=== PATIENT | female | born 1955 | race Caucasian/White ===

== ENCOUNTER → 2019-12-08 13:42 | Outpatient (BNVA) | payer MEDICARE, SELFPAY | PROVIDERS: Family Provider Family Medicine; PCP Family Medicine; Visit Provider Psychiatry & Neurology Psychiatry | DX: F33.42 Major depressive disorder, recurrent, in full remission (principal); F41.0 Panic disorder [episodic paroxysmal anxiety]; F17.210 Nicotine dependence, cigarettes, uncomplicated | CPT/HCPCS: 99214; 99215 ==

== ENCOUNTER 2020-01-01 07:18 | Inpatient (IN) | payer MEDICARE, SELFPAY ==
[2020-01-01] VITALS (44 sets, daily range): BP systolic 91–174; BP diastolic 55–87; PULSE 68–98; RESP 11–25; TEMP 36.4–36.8; O2SAT 91–100; BMI 29.2
--- NOTE | 2020-01-01 07:19 | W.ED.ABDPA2 ---
HPI - Abdominal Pain General: Chief Complaint: Abdominal Pain Stated Complaint: ABD PAIN Time Seen by Provider: 01/01/20 07:19 Source: patient Mode of arrival: ambulatory Limitations: no limitations History of Present Illness: HPI narrative: Patient is a 64-year-old female who presents to ED today with complaints of fairly sudden onset of right-sided abdominal pain that began at rest earlier this morning; patient states she had just use the restroom and reports walking back from the bathroom and immediately started having pain; she states pain seems to be worse with palpation and movement; she denies nausea, vomiting, changes in bowel movements, changes in urinary habits; no fever/chills; she reports a history of cholelithiasis; previous abdominal surgeries including hysterectomy with prophylactic appendectomy; denies previous similar episodes MD elicited complaint: abdominal pain Pertinent past history: none Onset (ago): hour(s) Exacerbating factors: movement Relieving factors: rest Associated Symptoms: Denies change in bowel habits, change in stool character, chills, coffee ground emesis, constipation, diarrhea, dysuria, excessive flatus, fever(s), heartburn, hematochezia, hematemesis, fecal incontinence, melena, nausea, syncope and vomiting Review of Systems Const: Denies: fever, chills or body aches Card: Denies: chest pain, palpitations, irregular heart rhythm, edema, lightheadedness, syncope, pre-syncope, shortness of breath on exertion or shortness of breath when lying down Resp: Denies: shortness of breath or productive cough GI: Reports: abdominal pain; Denies: nausea, vomiting, vomiting blood, coffee grounds in vomit, difficulty swallowing, heartburn/indigestion, feeling full early, diarrhea, constipation, excessive passing of gas, fecal incontinence, change in bowel habits, painful bowel movements, change in stool character, blood in stool, black tarry stool or white/light colored stool : Denies: flank pain, difficulty urinating, painful urination, urinary frequency, urinary urgency or urinary hesitancy Musc: Denies: neck pain or back pain Skin/Breast: Denies: rash Neuro: Denies: headache PFSH ED PFSH: Statuses (acute, chronic, etc) shown below reflect problem list status as previously entered and may not be historically accurate Medical History Cholelithiasis (Acute) Major depressive disorder, recurrent, in full remission (Acute) Panic disorder (Acute) Social History Smoking and tobacco status: current every day smoker cigarettes Packs smoked per day: 1.5 Quit status (tobacco): has tried quititng Number of times tried to quit tobacco: 1 Second hand smoke exposure: No Smoking risk assessment/counseling performed?: No Reason smoking risk assessment not done: other Physical Exam Const: COMMON NORMALS: no apparent distress, average body habitus, oriented x3, no limitations, alert and well nourished GENERAL APPEARANCE: cooperative Eye: COMMON NORMALS: no scleral icterus Neck/C-Spine: COMMON NORMALS: no lymphadenopathy Resp: COMMON NORMALS: normal respiratory effort and clear to auscultation bilaterally AUSCULTATION: clear to auscultation bilaterally Cardio: COMMON NORMALS: regular rate and regular rhythm RATE: regular rate RHYTHM: regular rhythm GI: COMMON NORMALS: soft to palpation, no hepatosplenomegaly and no masses AUSCULTATION: Yes normoactive bowel sounds PALPATION: Yes soft, Yes tender (R mid abdomen/RLQ; states it radiates down into groin) Details: RLQ and RUQ and Yes no hepatosplenomegaly : COMMON NORMALS: Yes no CVA tenderness BLADDER/KIDNEY EXAM: Yes no CVA tenderness Back/Pelvis: COMMON NORMALS: no CVA tenderness and thoracic and lumbar spine normal to inspection Neuro: COMMON NORMALS: oriented x3 SENSORIUM/ORIENTATION: Yes alert Skin: COMMON NORMALS: no rashes or lesions noted GENERAL SKIN EXAM: no rashes or lesions noted Course ED course: delay in care as UA was not being ran by lab-when I contacted them they stated they did not have a specimen on pt; RN Jaylin went to lab and realized she had placed wrong patient label urine Consultations: Consultation #1: Dr. Smith-recommends MRCP and if negative he will admit for cholecystectomy Time: 10:40 Consultation #2: Dr. Smith-went over pts MRCP results and he request we prep patient for OR Time: 14:30 Vital Signs: Vital signs: Vital Signs Temperature 97.5 F L 01/01/20 07:21 Pulse Rate 87 01/01/20 11:38 Respiratory Rate 18 01/01/20 11:38 Blood Pressure 91/72 01/01/20 11:38 Pulse Oximetry 91 01/01/20 11:38 MDM - Abdominal Pain Lab Data: Labs: Lab Results 01/01/20 01/01/20 01/01/20 Range/Units 07:44 07:45 07:45 WBC 15.6 H (4.0-10.0) 10^3/ uL RBC 4.11 (4.1-5.3) 10^6/u L Hgb 12.6 (11.5-15.3) g/dL Hct 38.8 (37.0-47.0) % MCV 94.4 (81-99) fL MCH 30.7 (28.0-34.0) pg MCHC 32.5 (30.0-36.0) g/dL RDW 12.1 (12.1-15.1) % Plt Count 321 (130-400) 10^3/c mm MPV 9.5 (7.4-10.4) fL Neut % (Auto) 74.3 % Lymph % (Auto) 17.1 % [place] % (Auto) 5.8 % Eos % (Auto) 2.1 % Baso % (Auto) 0.4 % Neut # (Auto) 11.6 H (1.8-7.7) 10^3/u L Lymph # (Auto) 2.7 (0.8-4.8) 10^3/u L [place] # (Auto) 0.9 (0.2-0.9) 10^3/u L Eos # (Auto) 0.3 (0.0-0.8) 10^3/u L Baso # (Auto) 0.1 (0.0-0.1) 10^3/u L Nucleated RBC % (a uto) 0 % Nucleated RBCs # 0.0 /100WBC Sodium 142 (136-145) mmol/L Potassium 3.5 (3.5-5.1) mmol/L Chloride 103 (98-107) mmol/L Carbon Dioxide 28 (22-29) mmol/L Anion Gap 14.5 (5-19) BUN 20 (8-23) mg/dL Creatinine 1.1 H (0.5-0.9) mg/dL GFR Calculation 49.8 L (90-130) mL/min Glucose 134 H (74-106) mg/dL Lactate (0.5-2.2) mmol/L Calcium 9.9 (8.5-10.5) mg/dL Total Bilirubin 0.2 (0.15-1.2) mg/dL AST 18 (0-32) U/L ALT 18 (0-33) U/L Alkaline Phosphata se 102 (35-105) IU/L Total Protein 7.5 (6.6-8.7) g/dL Albumin 4.3 (3.5-5.2) g/dL Globulin 3.2 (1.3-4.6) g/dL Lipase 19 (13-60) U/L Urine Color Yellow (Yellow) Urine Appearance Clear (CLEAR) Urine pH 5.0 (5-7) Ur Specific Gravit y 1.020 (1.005-1.030) Urine Protein Trace (Negative) Urine Glucose (UA) Norm (Normal) Urine Ketones Negative (Negative) Urine Occult Blood Neg (Negative) Urine Nitrate Negative (Negative) Urine Bilirubin 1+ H (NEGATIVE) Urine Urobilinogen 1 H (Negative) mg/dL Ur Leukocyte Tawana ase Negative (Negative) Urine RBC None (0-2) /hpf Urine WBC 0-4 H (0-5) /hpf Ur Squamous Epith Cells 5-10 H (0-5) Urine Bacteria 1+ H (NONE) Hyaline Casts 5-10 H Urine Mucus 2+ 01/01/20 Range/Units 10:52 WBC (4.0-10.0) 10^3/ uL RBC (4.1-5.3) 10^6/u L Hgb (11.5-15.3) g/dL Hct (37.0-47.0) % MCV (81-99) fL MCH (28.0-34.0) pg MCHC (30.0-36.0) g/dL RDW (12.1-15.1) % Plt Count (130-400) 10^3/c mm MPV (7.4-10.4) fL Neut % (Auto) % Lymph % (Auto) % [place] % (Auto) % Eos % (Auto) % Baso % (Auto) % Neut # (Auto) (1.8-7.7) 10^3/u L Lymph # (Auto) (0.8-4.8) 10^3/u L [place] # (Auto) (0.2-0.9) 10^3/u L Eos # (Auto) (0.0-0.8) 10^3/u L Baso # (Auto) (0.0-0.1) 10^3/u L Nucleated RBC % (a uto) % Nucleated RBCs # /100WBC Sodium (136-145) mmol/L Potassium (3.5-5.1) mmol/L Chloride (98-107) mmol/L Carbon Dioxide (22-29) mmol/L Anion Gap (5-19) BUN (8-23) mg/dL Creatinine (0.5-0.9) mg/dL GFR Calculation (90-130) mL/min Glucose (74-106) mg/dL Lactate 1.3 (0.5-2.2) mmol/L Calcium (8.5-10.5) mg/dL Total Bilirubin (0.15-1.2) mg/dL AST (0-32) U/L ALT (0-33) U/L Alkaline Phosphata se (35-105) IU/L Total Protein (6.6-8.7) g/dL Albumin (3.5-5.2) g/dL Globulin (1.3-4.6) g/dL Lipase (13-60) U/L Urine Color (Yellow) Urine Appearance (CLEAR) Urine pH (5-7) Ur Specific Gravit y (1.005-1.030) Urine Protein (Negative) Urine Glucose (UA) (Normal) Urine Ketones (Negative) Urine Occult Blood (Negative) Urine Nitrate (Negative) Urine Bilirubin (NEGATIVE) Urine Urobilinogen (Negative) mg/dL Ur Leukocyte Tawana ase (Negative) Urine RBC (0-2) /hpf Urine WBC (0-5) /hpf Ur Squamous Epith Cells (0-5) Urine Bacteria (NONE) Hyaline Casts Urine Mucus Imaging Data ^: CT Abd/Pel: Radiologist's impression: [address] [address] [address] Scan Report Signed Patient: Rebecca Coombs Unit #: [id number] : 1955 Age/Sex: 64 / F ADM Date: 01/01/20 Loc: ER Room/Bed: Attending Dr: Ordering Provider/Ordering MD: Loren Faith Date of Service: 01/01/20 Procedure(s): CT abdomen pelvis w con* [id number] Accession Number(s): [id number] Report Number: [id number] WS: [id number] CT scan of the abdomen and pelvis with IV contrast. Additional two-dimensional coronal and sagittal reconstruction was performed. 01/01/2020 Clinical Data: R sided abdominal pain Comparison: None. DLP: 2341.[address] scans at [facility] use at least one of these dose optimization techniques: automated exposure control; mA and/or kV adjustment per patient size (includes targeted exams where dose is matched to clinical indication); or iterative reconstruction. Findings: The lower lungs show no nodules, masses or effusions. The gallbladder shows a thickened wall with gallstones. The common bile duct is dilated to 1.6 cm although a definite intraductal stone is not seen. There is minimal air in the left liver biliary radicles. No liver abscess is seen. The spleen, adrenal glands and pancreas are normal. The kidneys show equal bilateral contrast excretion with a small left renal cortical cyst.. The abdominal aorta shows atherosclerotic dilatation of 2.5 cm with calcification in the wall. No abscess, adenopathy, ascites, mass, obstruction or free air is seen.. No appendicitis or diverticulitis is seen. The stomach and small bowel are nondilated. There is radiopaque material in the distal small bowel which may represent ingested material. There is a large amount of fecal material in the colon and extensive sigmoid diverticulosis is present. The bladder is unremarkable. The uterus is absent. No inguinal hernia is seen. 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 CT/CT abdomen pelvis w con* [id number] Impression: 1. Acute cholelithiasis and cholecystitis with dilated common bile duct and air in the biliary radicles of the left lobe of the liver. 2. Atherosclerotic dilatation of the midabdominal aorta Dictated By: Yary Alas MD Signed By: Yary Alas MD Signed Date/Time: 01/01/20 1016 DD/ 1001 US: Radiologist's impression: [address] [address] Ultrasound Report Signed Patient: Rebecca Coombs Unit #: [id number] : 1955 Age/Sex: 64 / F ADM Date: 01/01/20 Loc: ER Room/Bed: Attending Dr: Ordering Provider/Ordering MD: Loren Faith Date of Service: 01/01/20 Procedure(s): US gall bladder [id number] Accession Number(s): [id number] Report Number: [id number] WS: [id number] Gallbladder ultrasound, 01/01/2020 Clinical Data: R sided abdominal pain Comparison: CT abdomen and pelvis, 01/01/2020 Findings: The gallbladder shows several stones. The wall measures 3.9 mm with no pericholecystic fluid. The common bile duct is 11.9 mm and there are no intrahepatic ductal abnormalities. Liver shows no cysts, masses or dilated intrahepatic ducts. The liver measures 19.81 cm The pancreas is obscured by overlying bowel gas but no cyst, pseudocyst, or evidence of pancreatitis is noted. Right kidney measures 10.1 cm and no cyst, masses or hydronephrosis can be seen. The aorta is 2.64 cm and the inferior vena cava measured 3.17 cm. US/US gall bladder [id number] Impression: 1. Cholelithiasis with probable acute cholecystitis. 2. Dilated common bile duct is 1.19 cm but no intraductal stone is seen. 3. Atherosclerotic dilatation of the abdominal aorta of 2.64 cm. Dictated By: Yary Alas MD Signed By: Yary Alas MD Signed Date/Time: 01/01/20 1035 DD/ 1030 CXR: Radiologist's impression: [address] [address] XRay Report Signed Patient: Rebecca Coombs Unit #: [id number] : 1955 Age/Sex: 64 / F ADM Date: 01/01/20 Loc: ER Room/Bed: Attending Dr: Ordering Provider/Ordering MD: Loren Faith Date of Service: 01/01/20 Procedure(s): XR chest 1V portable [id number] Accession Number(s): [id number] Report Number: [id number] WS: [id number] Portable AP upright chest, 01/01/2020 Clinical Data: cough/congestion Comparison: PA and lateral chest, 08/31/2018. Findings: No nodules, masses or effusions are seen. The heart is normal. The pulmonary vascularity is not increased. No pneumonia or pneumothorax is seen. The aortic arch and descending aorta are minimally tortuous. Patchy lower lobe atelectasis is present. Midline sternotomy sutures are seen. There is a total right shoulder prosthesis in good position. XR/XR chest 1V portable [id number] Impression: 1. Minimal patchy bilateral lower lobe atelectasis. 2. Atherosclerosis. Dictated By: Yary Alas MD Signed By: Yary Alas MD Signed Date/Time: 01/01/20 1109 DD/ 1107 MRCP: Radiologist's impression: [place] [address] Magnetic Resonance Report Signed Patient: Rebecca Coombs Unit #: [id number] : 1955 Age/Sex: 64 / F ADM Date: 01/01/20 Loc: ER Room/Bed: Attending Dr: Ordering Provider/Ordering MD: Loren Faith Date of Service: 01/01/20 Procedure(s): MR MRCP [id number] Accession Number(s): [id number] Report Number: [id number] WS: [id number] MRCP, 01/01/2020 Clinical Data: cholecystitis/stones; dilated CBD Comparison: Gallbladder ultrasound, 01/01/2020, CT abdomen and pelvis, 01/01/2020. Findings: The pancreas is normal with no evidence of any pancreatitis, pseudocyst, abscess, mass or ductal dilation. The distal pancreatic duct empties normally into the descending duodenum with no evidence of any stricture or intraluminal defect. The common bile duct is dilated down to the sphincter of Eric but no intraluminal filling defect is seen. There is a sharp narrowing of the distal common bile duct just before it enters the second part of the duodenum. The gallbladder is densely packed with stones. The proximal intrahepatic radicles are modestly dilated. The liver, spleen, kidneys, stomach, abdominal aorta and inferior vena cava are unremarkable. MR/MR MRCP [id number] Impression: 1. Cholelithiasis. 2. Dilated common bile duct with no definite intraluminal filling defect. 3. The distal common bile duct shows narrowing as it proceeds into the second part of the duodenum and an ERCP may be helpful. Dictated By: Yary Alas MD Signed By: Yary Alas MD Signed Date/Time: 01/01/20 1403 DD/ 1352 Discharge Plan Discharge Patient Disposition: Admitted As Inpatient Clinical Impression: Cholelithiasis and cholecystitis without obstruction Qualifiers: Cholelithiasis location: gallbladder Cholecystitis acuity: acute Qualified Code(s): K80.00 - Calculus of gallbladder with acute cholecystitis without obstruction Condition: Stable Coding Level of Care Code ED Jewelry Sales Associate for Lillian Yang Exam Problem Focused
[2020-01-01 07:50] LABS: Basophils # 0.1 10^3/uL (0.0-0.1); Basophils % 0.4 %; Eosinophils # 0.3 10^3/uL (0.0-0.8); Eosinophils % 2.1 %; Hematocrit 38.8 % (37.0-47.0); Hemoglobin 12.6 g/dL (11.5-15.3); Lymphocytes # 2.7 10^3/uL (0.8-4.8); Lymphocytes % 17.1 %; Mean Corpuscular HGB Conc 32.5 g/dL (30.0-36.0); Mean Corpuscular Hemoglobin 30.7 pg (28.0-34.0); Mean Corpuscular Volume 94.4 fL (81-99); Mean Platelet Volume 9.5 fL (7.4-10.4); Monocytes # 0.9 10^3/uL (0.2-0.9); Monocytes % 5.8 %; Neutrophils # 11.6 10^3/uL (1.8-7.7); Neutrophils % 74.3 %; Nucleated Red Blood Cells % 0 %; Platelet Count 321 10^3/cmm (130-400); Red Blood Count 4.11 10^6/uL (4.1-5.3); Red Cell Distribution Width 12.1 % (12.1-15.1); White Blood Count 15.6 10^3/uL (4.0-10.0)
[2020-01-01] MEDS: morphine 4 mg/mL SDV 1 mL IVP (08:00)
[2020-01-01 08:05] LABS: Alanine Aminotransferase 18 U/L (0-33); Albumin Level 4.3 g/dL (3.5-5.2); Alkaline Phosphatase 102 IU/L (35-105); Anion Gap 14.5 (5-19); Aspartate Amino Transferase 18 U/L (0-32); Blood Urea Nitrogen 20 mg/dL (8-23); Calcium 9.9 mg/dL (8.5-10.5); Carbon Dioxide 28 mmol/L (22-29); Chloride 103 mmol/L (98-107); Creatinine Clr Calc Pharmacy 57.0601; Globulin 3.2 g/dL (1.3-4.6); Glomerular Filtration Rate 49.8 mL/min (90-130); Glucose 134 mg/dL (74-106); Lipase 19 U/L (13-60); Potassium 3.5 mmol/L (3.5-5.1); Sodium 142 mmol/L (136-145); Total Bilirubin 0.2 mg/dL (0.15-1.2); Total Protein 7.5 g/dL (6.6-8.7)
[2020-01-01] MEDS: ondansetron 2 mg/ML SDV 2 mL 4 MG IVP ×2 (08:05→20:09)
[2020-01-01] MEDS: sodium chloride 0.9% 1,000 ML 999 ML IV (08:10)
[2020-01-01 08:59] LABS: Blood Urine Neg (Negative); Glucose Urine UA Norm (Normal); Ketones Urine Negative (Negative); Protein Urine Trace (Negative); Urine Appearance Clear (CLEAR); Urine Color Yellow (Yellow)
[2020-01-01 09:00] LABS: Add Urine Microscopic? YES; Bilirubin Urine 1+ (NEGATIVE); Leukocyte Esterase Urine Negative (Negative); Nitrate Urine Negative (Negative); Urobilinogen Urine 1 mg/dL (Negative)
--- NOTE | 2020-01-01 09:03 | CT_ITS ---
WS: [id number] CT scan of the abdomen and pelvis with IV contrast. Additional two-dimensional coronal and sagittal r econstruction was performed. 01/01/2020 Clinical Data: R sided abdominal pain Comparison: None. DLP: 2341.[address] scans at [facility] use at least one of these dose optimization techniques: automat ed exposure control; mA and/or kV adjustment per patient size (includes targeted exams where dose is matched to clinical indication); or iterative reconstruction. Findings: The lower lungs show no nodules, masses or effusions. The gallbladder shows a thickened wall with gal lstones. The common bile duct is dilated to 1.6 cm although a definite intraductal stone is not seen. There is minimal air in the left liver biliary radicles. No liver abscess is seen. The spleen, adrenal glands and pancreas are normal. The kidneys show equal bilateral contrast excretion with a small left renal cortical cyst.. The abdominal aorta shows atherosclerotic dilatation of 2.5 cm with calcification in the wall. No abs cess, adenopathy, ascites, mass, obstruction or free air is seen.. No appendicitis or diverticulitis is seen. The stomach and small bowel are nondilated. There is radio paque material in the distal small bowel which may represent ingested material. There is a large abilio unt of fecal material in the colon and extensive sigmoid diverticulosis is present. The bladder is un remarkable. The uterus is absent. No inguinal hernia is seen. 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 CT/CT abdomen pelvis w con* [id number] Impression: 1. Acute cholelithiasis and cholecystitis with dilated common bile duct and air in the biliary radicles of the left lobe of the liver. 2. Atherosclerotic dilatation of the midabdominal aorta
--- NOTE | 2020-01-01 09:03 | US_ITS ---
WS: [id number] Gallbladder ultrasound, 01/01/2020 Clinical Data: R sided abdominal pain Comparison: CT abdomen and pelvis, 01/01/2020 Findings: The gallbladder shows several stones. The wall measures 3.9 mm with no pericholecystic fluid. The common bile duct is 11.9 mm and there are no intrahepatic ductal abnormalities. Liver shows no cysts, masses or dilated intrahepatic ducts. The liver measures 19.81 cm The pancreas is obscured by overlying bowel gas but no cyst, pseudocyst, or evidence of pancreatitis is noted. Right kidney measures 10.1 cm and no cyst, masses or hydronephrosis can be seen. The aorta is 2.64 cm and the inferior vena cava measured 3.17 cm. US/US gall bladder [id number] Impression: 1. Cholelithiasis with probable acute cholecystitis. 2. Dilated common bile duct is 1.19 cm but no intraductal stone is seen. 3. Atherosclerotic dilatation of the abdominal aorta of 2.64 cm.
[2020-01-01 09:12] LABS: Add Urine Culture? No; Bacteria Urine 1+; Mucus Urine 2+; WBC Urine 0-4 /hpf (0-5)
[2020-01-01] MEDS: iodixanol 320 mg/mL 100mL Btl 95 ML IV (09:43)
--- NOTE | 2020-01-01 10:10 | PC.NURSE ---
US IN ROOM FOR US OF GALLBLADDER
[2020-01-01] MEDS: fentaNYL 50 mcg/mL INJ 2mL IVP ×2 (10:40→12:36)
--- NOTE | 2020-01-01 10:41 | ECG_ITS ---
Measurements Intervals Gatzke Rate: 79 P: 64 KS: 208 QRS: 20 QRSD: 110 T: 58 QT: 379 QTc: 436 SINUS RHYTHM INFERIOR MYOCARDIAL INFARCTION [40+ ms Q WAVE AND/OR ST/T ABNORMALITY IN II/aVF], PROBABLY OLD WITH POSTERIOR EXTENSION [PROMIN Compared to ECG 08/31/2018 09:37:00 Ectopic atrial rhythm no longer present First degree AV block no longer present Myocardial infarct finding still present Electronically Signed On 01-01-2020 15:59:46 INFORMATION MANAGEMENT SPECIALIST by Murtaza Daniel M.D. [email or web address]
--- NOTE | 2020-01-01 10:41 | XR_ITS ---
WS: [id number] Portable AP upright chest, 01/01/2020 Clinical Data: cough/congestion Comparison: PA and lateral chest, 08/31/2018. Findings: No nodules, masses or effusions are seen. The heart is normal. The pulmonary vascularity is not increased. No pneumonia or pneumothorax is seen. The aortic arch and descending aorta are minima lly tortuous. Patchy lower lobe atelectasis is present. Midline sternotomy sutures are seen. There is a total right shoulder prosthesis in good position. XR/XR chest 1V portable [id number] Impression: 1. Minimal patchy bilateral lower lobe atelectasis. 2. Atherosclerosis.
[2020-01-01 11:20] LABS: Lactate (Lactic Acid level) 1.3 mmol/L (0.5-2.2)
--- NOTE | 2020-01-01 12:00 | MR_ITS ---
WS: [id number] MRCP, 01/01/2020 Clinical Data: cholecystitis/stones; dilated CBD Comparison: Gallbladder ultrasound, 01/01/2020, CT abdomen and pelvis, 01/01/2020. Findings: The pancreas is normal with no evidence of any pancreatitis, pseudocyst, abscess, mass or ductal dila tion. The distal pancreatic duct empties normally into the descending duodenum with no evidence of any stri cture or intraluminal defect. The common bile duct is dilated down to the sphincter of Eric but no intraluminal filling defect is s een. There is a sharp narrowing of the distal common bile duct just before it enters the second part of the duodenum. The gallbladder is densely packed with stones. The proximal intrahepatic radicles ar e modestly dilated. The liver, spleen, kidneys, stomach, abdominal aorta and inferior vena cava are unremarkable. MR/MR MRCP 03405 Impression: 1. Cholelithiasis. 2. Dilated common bile duct with no definite intraluminal filling defect. 3. The distal common bile duct shows narrowing as it proceeds into the second p art of the duodenum and an ERCP may be helpful.
--- NOTE | 2020-01-01 12:00 | PC.NURSE ---
LIST OF PARAMETERS FOR MRI GONE OVER WITH PATIENT
--- NOTE | 2020-01-01 12:19 | PC.NURSE ---
PATIENT TAKEN BY EMS OVER TO [facility] FOR MRI
--- NOTE | 2020-01-01 13:38 | PC.NURSE ---
patient arrived back form [facility] by ems. no needs voiced
[2020-01-01] MEDS: piperacillin-tazobactam 3.375 GM in sodium chloride 0.9% (plus) 50 ML IV ×2 (14:32→23:43)
--- NOTE | 2020-01-01 15:45 | P.ANES_ITS ---
Pre-Anesthetic Assessment Pre-Anesthetic Assessment: Height/Weight: Height 1.7 m Weight 84.822 kg Temp Pulse Resp BP Pulse Ox 97.5 F L 87 20 H 118/76 98 01/01/20 07:21 01/01/20 11:38 01/01/20 15:38 01/01/20 15:38 01/01/20 15:38 Preop Diagnosis: cholelithiasis Proposed Procedure: Operation Date: 01/01/20 15:30 Proposed Procedures p Laparoscopic Cholecystectomy(Not Applicable) - Brennan Smith MD Familial anesthetic complications: None Was Beta Ama taken within 24 hours: Yes Last intake: Intake Last Liquid Date 01/01/20 Last Liquid Time 06:00 Last Solid Date 12/31/19 Last Solid Time 18:00 Social: Social History: Tobacco (1 ppd) and No alcohol Airway: Cervical ROM: WNL MP: 2 Dentition: False Pulmonary: Pulmonary: COPD Comments: no o2, no steroids, no hospital admission CV/HEM: CV/HEM: Angina (Stable) (due to panic d/o per patients- treated with alprazolam) and HTN : : None reported Hepatic: Hepatic: None reported GI: GI: None reported Metabolic: Metabolic: Hyperlipidemia Musc/skel: Musc/skel: None reported Comments: rotator cuffs surgery Neuropsych: Neuropsych: None reported Anesthetic Plan: ASA status: III Anesthesia: Eval. for regional block Risk of > 500 ml blood loss (7ml/kg in children): No PFSH Anesthesia PFSH: Medical History (Updated 01/01/20 @ 15:42 by Brennan Smith MD) Cholelithiasis (Acute) Hypercholesterolemia (Acute) Major depressive disorder, recurrent, in full remission (Acute) Panic disorder (Acute) Surgical History (Updated 01/01/20 @ 15:42 by Brennan Smith MD) H/O cardiac catheterization (Acute) H/O hysterectomy with oophorectomy (Acute) H/O rotator cuff surgery (Acute) History of right shoulder replacement (Acute) Hx of appendectomy (Acute) S/p bilateral carpal tunnel release (Acute) S/P CABG x 4 (Acute) Status post colonoscopy (Acute) Social History Smoking and tobacco status: current every day smoker cigarettes Packs smoked per day: 1.5 Quit status (tobacco): has tried quititng Number of times tried to quit to bacco: 1 Second hand smoke exposure: No Smoking risk assessment/counseling performed?: No Reason smoking risk assess ment not done: other Data Anesthesia CBC & Chem 7: 01/01/20 07:45 01/01/20 07:45 Other Labs: Laboratory Results - last 48 hr 01/01/20 01/01/20 01/01/20 07:44 07:45 07:45 WBC 15.6 H RBC 4.11 Hgb 12.6 Hct 38.8 MCV 94.4 MCH 30.7 MCHC 32.5 RDW 12.1 Plt Count 321 MPV 9.5 Neut % (Auto) 74.3 Lymph % (Auto) 17.1 [place] % (Auto) 5.8 Eos % (Auto) 2.1 Baso % (Auto) 0.4 Neut # (Auto) 11.6 H Lymph # (Auto) 2.7 [place] # (Auto) 0.9 Eos # (Auto) 0.3 Baso # (Auto) 0.1 Nucleated RBC % (auto) 0 Nucleated RBCs # 0.0 Sodium 142 Potassium 3.5 Chloride 103 Carbon Dioxide 28 Anion Gap 14.5 BUN 20 Creatinine 1.1 H GFR Calculation 49.8 L Glucose 134 H Lactate Calcium 9.9 Total Bilirubin 0.2 AST 18 ALT 18 Alkaline Phosphatase 102 Total Protein 7.5 Albumin 4.3 Globulin 3.2 Lipase 19 Urine Color Yellow Urine Appearance Clear Urine pH 5.0 Ur Specific [place] 1.020 Urine Protein Trace Urine Glucose (UA) Norm Urine Ketones Negative Urine Occult Blood Neg Urine Nitrate Negative Urine Bilirubin 1+ H Urine Urobilinogen 1 H Ur Leukocyte Esterase Negative Urine RBC None Urine WBC 0-4 H Ur Squamous Epith Cells 5-10 H Urine Bacteria 1+ H Hyaline Casts 5-10 H Urine Mucus 2+ 01/01/20 10:52 WBC RBC Hgb Hct MCV MCH MCHC RDW Plt Count MPV Neut % (Auto) Lymph % (Auto) [place] % (Auto) Eos % (Auto) Baso % (Auto) Neut # (Auto) Lymph # (Auto) [place] # (Auto) Eos # (Auto) Baso # (Auto) Nucleated RBC % (auto) Nucleated RBCs # Sodium Potassium Chloride Carbon Dioxide Anion Gap BUN Creatinine GFR Calculation Glucose Lactate 1.3 Calcium Total Bilirubin AST ALT Alkaline Phosphatase Total Protein Albumin Globulin Lipase Urine Color Urine Appearance Urine pH Ur Specific [place] Urine Protein Urine Glucose (UA) Urine Ketones Urine Occult Blood Urine Nitrate Urine Bilirubin Urine Urobilinogen Ur Leukocyte Esterase Urine RBC Urine WBC Ur Squamous Epith Cells Urine Bacteria Hyaline Casts Urine Mucus Micro: Microbiology 01/01/20 10:57 Blood Culture - Preliminary Blood SPECIMEN COLLECTED 01/01/20 10:52 Blood Culture - Preliminary Blood SPECIMEN COLLECTED Cardiac Studies: No Data to Display
--- NOTE | 2020-01-01 16:13 | PC.NURSE ---
pixus showed I had an undocumented waste for fentanyl but all 100 mcgs completed
--- NOTE | 2020-01-01 16:14 | PM.HP ---
Providers/Chief Complaint Primary Care Provider: Venancio Mota MD Chief Complaint: CHOLESTECTOMY History of Present Illness Rebecca Coombs is a 64 year old female who presented to the ER with complaints of right upper quadrant pain which started 4 AM this morning. Patient states that the pain was severe and was associated nausea but denies any vomiting. There was no aggravating or relieving factors. Patient had pizza for dinner last night. Denies any history of significant acid reflux. She has never had a similar episode in the past. Denies any fevers or chills. Review of Systems Const: Denies: fever, chills, change in weight or fatigue Eyes: Denies: change in vision ENMT: Denies: painful swallowing Card: Denies: chest pain Resp: Denies: shortness of breath : Denies: painful urination Skin/Breast: Denies: rash Neuro: Denies: seizure-like activity Jovany/Lymph: Denies: easy bruising Medications/Allergies Home Medications Medication Instructions Recorded Confirmed Last Taken Type fluticasone propion-salmeterol 1 puff INHALATION BID 01/01/20 01/01/20 12/30/19 History [Wixela Inhub] potassium chloride 20 meq PO DAILY 01/01/20 01/01/20 12/30/19 History Allergies Allergy/AdvReac Type Severity Reaction Status Date / Time codeine Allergy Unknown Unknown Unverified 01/01/20 16:08 epinephrine Allergy Unknown Unknown Unverified 01/01/20 16:08 gabapentin [From Neurontin] Allergy Unknown Unknown Unverified 01/01/20 16:08 methadone Allergy Unknown Unknown Unverified 01/01/20 16:08 oxycodone [From OxyContin] Allergy Unknown Unknown Unverified 01/01/20 16:08 [id number] Reductase Allergy Unknown Unknown Unverified 01/01/20 16:08 Inhibitor tramadol Allergy Unknown Unknown Unverified 01/01/20 16:08 PFSH Acute PFSH: Statuses (acute, chronic, etc) shown below reflect problem list status as previously entered and may not be historically accurate Medical History Cholelithiasis (Acute) Hypercholesterolemia (Acute) Major depressive disorder, recurrent, in full remission (Acute) Panic disorder (Acute) Surgical History H/O cardiac catheterization (Acute) H/O hysterectomy with oophorectomy (Acute) H/O rotator cuff surgery (Acute) History of right shoulder replacement (Acute) Hx of appendectomy (Acute) S/p bilateral carpal tunnel release (Acute) S/P CABG x 4 (Acute) Status post colonoscopy (Acute) Social History Smoking and tobacco status: current every day smoker cigarettes Packs smoked per day: 1.5 Quit status (tobacco): has tried quititng Number of times tried to quit tobacco: 1 Second hand smoke exposure: No Smoking risk assessment/counseling performed?: No Reason smoking risk assessment not done: other Vitals/I&O/Wt Last Vital Signs Temp 98.2 F 01/01/20 16:02 Pulse 70 01/01/20 16:02 Resp 18 01/01/20 16:02 BP 118/64 01/01/20 16:02 Pulse Ox 96 01/01/20 16:02 Weight last 48 hrs Weight 187 lb Physical Exam Narrative: EXAM NARRATIVE: HEENT: Normocephalic Eye: Sclera /conjunctiva normal Respiratory and chest: Bilateral clear breath sounds on auscultation Cardiovascular: Normal S1 and S2 heart sounds, well-healed CABG scar Abdomen: Soft to palpation, tender right upper quadrant, Rudolph sign positive Neurological: Oriented to place person and time Skin: Intact, no lesions appreciated on gross exam Data : 01/01/20 07:45 01/01/20 07:45 Micro: Microbiology 01/01/20 10:57 Blood Culture - Preliminary Blood SPECIMEN COLLECTED 01/01/20 10:52 Blood Culture - Preliminary Blood SPECIMEN COLLECTED CT Abd/Pel: Radiologist's impression: 1. Acute cholelithiasis and cholecystitis with dilated common bile duct and air in the biliary radicles of the left lobe of the liver. 2. Atherosclerotic dilatation of the midabdominal aorta US: Radiologist's impression: 1. Cholelithiasis with probable acute cholecystitis. 2. Dilated common bile duct is 1.19 cm but no intraductal stone is seen. 3. Atherosclerotic dilatation of the abdominal aorta of 2.64 cm. MRI: Radiologist's impression: 1. Cholelithiasis. 2. Dilated common bile duct with no definite intraluminal filling defect. 3. The distal common bile duct shows narrowing as it proceeds into the second part of the duodenum and an ERCP may be helpful. A&P Assessment and plan (1) Cholelithiasis and cholecystitis without obstruction: 64-year-old female with right upper quadrant pain with ultrasound showing pneumobilia and gallstones and CT abdomen and pelvis showing dilated intrahepatic ducts. MRCP did not show any evidence of choledocholithiasis. LFTs, lipase are normal, white count is elevated. I suspect that she passed the common bile duct stone. Patient is currently hemodynamically stable. We will therefore proceed with laparoscopic possible open cholecystectomy. Procedure, risks, benefits and alternatives have been discussed with the patient who wishes to proceed with surgery. Status: Acute Qualifiers: Cholecystitis acuity: acute Cholelithiasis location: gallbladder Qualified Code(s): K80.00 - Calculus of gallbladder with acute cholecystitis without obstruction Code(s): K80.10 - Calculus of gallbladder with chronic cholecystitis without obstruction Attestations Medical Necessity Statement*: Cholelithiasis going laparoscopic possible open cholecystectomy Coding Level of Care Code Acute [employer] Department Head for [facility] Diagnoses Cholelithiasis and cholecystitis without obstruction K80.00 Cholecystitis acuity: acute Cholelithiasis location: gallbladder
[2020-01-01] MEDS: sodium chloride 0.9% SDV 10 mL 20 ML XX (18:24)
--- NOTE | 2020-01-01 19:32 | PM.CONSULT ---
Providers/Reason For Consult Consulting Physican/Specialty*: Hospitalist service Reason for Consult*: Hypercapnic respiratory failure perioperative Attending Physician: Brennan Smith MD Primary Care Provider: Venancio Mota MD History of Present Illness History of Present Illness Rebecca Coombs is a 64 year old female who has history of CABG x4, appendectomy presented to the hospital with right upper quadrant pain, was diagnosed with acute cholelithiasis with cholecystitis with dilated CBD, MRCP did not show any choledocholithiasis hence plan was made to do laparoscopic cholecystectomy, necrotic bowel was found around gallbladder right hemicolectomy was done with a minimal midabdominal laparotomy incision by Dr. Smith. Perioperatively she had hypercapnic respiratory failure which started getting better afterwards. Hospital service was consulted for close monitoring in ICU because of her CABG history hypercapnic respiratory failure and recent hemicolectomy. When I saw her in ICU 7, blood pressure was 156/76, heart rate 87, sinus rhythm, she was waking up, was trying to follow commands, she squeeze my fingers, her breathing was pursed lip he was on nonrebreather mask, Mid abdominal laparotomy scar dressing has minimal soaked dressing with blood Review of Systems General: Reports: ROS unobtainable due to medical condition (Currently patient is able to follow commands but not able to answer my question because of post anesthetic effect) Meds/Allergies Home Medications and Allergies Home Medications Medication Instructions Recorded Confirmed Type ascorbate calcium (vitamin C) 500 500 mg PO DAILY tab 12/08/19 01/01/20 History mg tablet aspirin 81 mg chewable tablet 81 mg PO DAILY 12/08/19 01/01/20 History baclofen 10 mg tablet 10 mg PO TID PRN 12/08/19 01/01/20 History cholecalciferol (vitamin D3) 2,000 2,000 unit PO DAILY 12/08/19 01/01/20 History unit tablet fluticasone furoate 50 See Rx Instructions INHALATION 12/08/19 01/01/20 History mcg/actuation blister powder for DAILY each inhalation furosemide 40 mg tablet 40 mg PO QAM 12/08/19 01/01/20 History lovastatin 40 mg tablet 40 mg PO BEDTIME tab 12/08/19 01/01/20 History magnesium 250 mg tablet 250 mg PO DAILY 12/08/19 01/01/20 History metoprolol tartrate 25 mg tablet 25 mg PO BID 12/08/19 01/01/20 History multivitamin 1 tab PO QAM 12/08/19 01/01/20 History omega 3-dha 500 mg-epa 100 mg-fish See Rx Instructions PO DAILY cap 12/08/19 01/01/20 History oil capsule omeprazole 20 mg capsule,delayed 20 mg PO BID 12/08/19 01/01/20 History release vitamin E succinate 200 unit tablet 200 unit PO DAILY 12/08/19 01/01/20 History fluticasone propion-salmeterol 1 puff INHALATION BID 01/01/20 01/01/20 History [Wixela Inhub] potassium chloride 20 meq PO DAILY 01/01/20 01/01/20 History Allergies Allergy/AdvReac Type Severity Reaction Status Date / Time codeine Allergy Unknown Unknown Unverified 01/01/20 16:08 epinephrine Allergy Unknown Unknown Unverified 01/01/20 16:08 gabapentin [From Neurontin] Allergy Unknown Unknown Unverified 01/01/20 16:08 methadone Allergy Unknown Unknown Unverified 01/01/20 16:08 oxycodone [From OxyContin] Allergy Unknown Unknown Unverified 01/01/20 16:08 Mvchmkw-Uma-Jpc Reductase Allergy Unknown Unknown Unverified 01/01/20 16:08 Inhibitor tramadol Allergy Unknown Unknown Unverified 01/01/20 16:08 PFSH Acute PFSH: Statuses (acute, chronic, etc) shown below reflect problem list status as previously entered and may not be historically accurate Medical History Cholelithiasis (Acute) Hypercholesterolemia (Acute) Major depressive disorder, recurrent, in full remission (Acute) Panic disorder (Acute) Surgical History H/O cardiac catheterization (Acute) H/O hysterectomy with oophorectomy (Acute) H/O rotator cuff surgery (Acute) History of right shoulder replacement (Acute) Hx of appendectomy (Acute) S/p bilateral carpal tunnel release (Acute) S/P CABG x 4 (Acute) Status post colonoscopy (Acute) Social History Smoking and tobacco status: current every day smoker cigarettes Packs smoked per day: 1.5 Quit status (tobacco): has tried quititng Number of times tried to quit tobacco: 1 Second hand smoke exposure: No Smoking risk assessment/counseling performed?: No Reason smoking risk assessment not done: other Vitals/I&O/Wt Last Vital Signs Temp 98.2 F 01/01/20 16:02 Pulse 79 01/01/20 19:18 Resp 18 01/01/20 16:02 BP 100/57 01/01/20 19:18 Pulse Ox 100 01/01/20 19:18 01/01/20 01/01/20 01/01/20 06:59 14:59 22:59 Intake Total 1050 / 1050 Balance 1050 / 1050 Weight last 48 hrs Weight 84.822 kg Physical Exam Narrative: EXAM NARRATIVE: Thin frail elderly female Currently saturating well on facemask saturating 97% Heart rate 87, sinus rhythm on telemetry Blood pressure 150/66 S1, S2 no signs of JVD heart failure or murmur Abdomen, soft, no active bleeding from surgical site, laparotomy scar has minimally bloodsoaked dressing Bowel sounds sluggish Laparoscopic scars without any oozing or any discharge Patient is able to open her eyes on verbal command otherwise seems very sedated and drowsy Lower extremity no signs of edema ischemia or gangrene Her back has not been examined Pupils are reactive to light bilaterally Urinary Catheter Management^: [place]: Cath Placed During This Visit: no Data Micro: Micro: Microbiology 01/01/20 10:57 Blood Culture - Pr eliminary Blood SPECIMEN [facility] DANIEL 01/01/20 10:52 Blood Culture - Pr eliminary Blood SPECIMEN [facility] A&P Assessment and plan (1) Cholelithiasis and cholecystitis without obstruction: Status: Acute Qualifiers: Cholecystitis acuity: acute Cholelithiasis location: gallbladder Qualified Code(s): K80.00 - Calculus of gallbladder with acute cholecystitis without obstruction Code(s): K80.10 - Calculus of gallbladder with chronic cholecystitis without obstruction (2) COPD (chronic obstructive pulmonary disease): Status: Acute Code(s): J44.9 - Chronic obstructive pulmonary disease, unspecified (3) HTN (hypertension): Status: Acute Code(s): I10 - Essential (primary) hypertension (4) CAD (coronary artery disease): Status: Acute Code(s): I25.10 - Atherosclerotic heart disease of [place] coronary artery without angina pectoris (5) Major depressive disorder, recurrent, in full remission: Status: Acute Code(s): F33.42 - Major depressive disorder, recurrent, in full remission (6) S/P right hemicolectomy: Status: Acute Code(s): Z90.49 - Acquired absence of other specified parts of digestive tract (7) Necrosis of intestine: Status: Acute Code(s): K55.069 - Acute infarction of intestine, part and extent unspecified Additional A&P Information Day 0 laparoscopic cholecystectomy converted to laparotomy with right hemicolectomy Cholelithiasis with cholecystitis without choledocholithiasis Postoperatively hemodynamics are stable, estimated blood loss was only 75 mL she received propofol for induction with rocuronium Currently she is waking up on verbal commands, able to open her eyes and squeeze my fingers, seems very sedated for now She is afebrile, has sinus rhythm heart rate 83 Monitor for any postoperative complications Status post right hemicolectomy Necrotic cecum was found incidentally, no active bleeding or signs of sepsis I will keep her on Zosyn for next 72 hours at least As per my discussion with anesthesia, she had a lot of secretions which were suctioned, no aspiration was noticed Perioperative COPD exacerbation Secondary to anesthetic agents She is extubated, she had perioperative hypercapnic respiratory failure which resolved after laparotomy Once she is more awake would do trial of BiPAP with blood gas in the morning History of CABG No active ischemic changes on EKG, I would resume her aspirin and metoprolol, statins, on day 1 postop She is full code DVT prophylaxis Lovenox 40 mg Consult Attestations Medical Necessity Statement: As per general surgeon Time Spent in Patient Care: 40 Coding Level of Care Code Acute [employer] Diagnoses Cholelithiasis and cholecystitis without obstruction K80.00 Cholecystitis acuity: acute Cholelithiasis location: gallbladder COPD (chronic obstructive pulmonary disease) J44.9 HTN (hypertension) I10 CAD (coronary artery disease) I25.10 Major depressive disorder, recurrent, in full remission F33.42 S/P right hemicolectomy Z90.49 Necrosis of intestine K55.069
--- NOTE | 2020-01-01 19:37 | PC.NURSE ---
To floor from OR at this time Pt arrived from OR with surgery team. Pt has pursed lip breathing on 5L simple mask. Lungs expiratory coarseness during auscultation. Pt opens eyes to loud verbal stimuli but does not stay aroused. Vital signs within normal limits. Abdomen is soft, non-distended with medial abdomen dressing that has minimal sanguineous drainage, circled at this time. 5 stabs noted to abdomen 3 to upper abd and 2 to lower abd. All three covered with bandaids. Recovery phase started.
--- NOTE | 2020-01-01 19:44 | PM.PACU ---
PACU note PACU note: brought to ICU, spontaneously breathing, on o2 mask. report given to hospitalist Post-Anesthesia Exam: awake and vital signs stable Disposition: other (admitted to icu)
--- NOTE | 2020-01-01 19:52 | P.OP_ITS ---
Operative Report Date of procedure: January 01, 2020 Pre-op Diagnosis: cholelithiasis Post-op Diagnosis: Ischemic cecum Cholelithiasis Procedure Done: Laparoscopic right hemicolectomy with stapled iznt-sa-alde anastomosis Laparoscopic cholecystectomy Specimens removed/disposition: Right hemicolectomy specimen containing ileum, cecum, ascending colon and proximal transverse colon Gallbladder, sent to pathology Surgeon: Brennan Smith Anesthesia: General Estimated blood loss (mL): 50 IV fluids (mL): 1,400 Urine output (mL): 100 Condition: stable Disposition: ICU Brief History: This is 64-year-old female who presented to the ER with severe abdominal pain and was noted on ultrasound to have a dilated common bile duct and gallstones. Her LFTs were normal. A CT abdomen pelvis revealed dilated duct and pneumobilia. She subsequently had an MRCP which showed a dilated duct but no CBD stones. She had a white count of 15, her LFTs and lactate were normal. She was therefore taken to the OR for laparoscopic possible open cholecystectomy. Procedure: The patient was taken to the operating room and placed in the supine position under general anesthesia after IV antibiotic had been administered. The abdomen was prepped and draped in a sterile manner. A 2 cm infraumbilical incision was made and using open Tabares technique the peritoneal cavity was entered and a 11 mm port was placed and 15 mm of pneumoperitoneum was created. A 10 mm 30 degree scope was introduced. On examination of the peritoneal cavity, there was an ischemic right colon noted. On further examination it was noted that half the wall of the cecum was ischemic. There were gallstones noted in the gallbladder. There was no evidence of peritoneal contamination. I therefore informed the patient's family about the new findings with plan to proceeding with laparoscopic right hemicolectomy. A Santa catheter was placed and 5mm port was placed in the suprapubic area and the right lower quadrant under direct visualization. 5mm ports were placed in the epigastric region, midclavicular line and anterior axillary 2 fingerbreadths below the costal margin under direct visualization.. The patient was placed in Trendelenburg position and steep tilt to the left placing the small bowel in the left side within the peritoneal cavity and the transverse colon was retracted superiorly. The cecum was retracted laterally and the tenting of the ileocolic pedicle was noted. The peritoneum overlying the pedicle was opened and a window created posterior to the pedicle just lateral to the third portion of the duodenum. Dissection was carried superiorly lateral to the duodenum along the avascular plane. Using LigaSure the ileocolic pedicle was divided. The avascular plane was dissected laterally towards the right paracolic gutter and superiorly towards the hepatic flexure.The transverse mesocolon was divided using LigaSure and this was continued medially. The right branch of mid colic vessels were skeletonized and divided with LigaSure. The anterior leaflet of the greater omentum was divided near the midpoint of the transverse colon to enter the lesser sac. The greater omentum was divided using LigaSure and the hepatic flexure was taken down. The dissection was carried along the line of Toldt until the ascending colon and down to ileum to completely free it up. The mesentery of the terminal ileum was divided using LigaSure. Ratcheted forceps were introduced into the lateral most port and was used to re tract the fundus of the gallbladder cephalad and using forceps the infundibulum of the gallbladder was retracted laterally. Using L-hook cautery the peritoneum overlying the Calot's triangle was opened medially and laterally until the cystic duct and the cystic artery were skeletonized. Dissection was carried along the body of the gallbladder and after ensuring critical view of safety, 4 clips applied on the cystic duct and 3 clips applied on the cystic artery and cut leaving, 3 clips on the remaining portion of the duct and 2 clips on the remaining portion of the artery. The rest of the gallbladder was dissected off the liver using L-hook cautery. There was no bleeding or bile leaking noted from the gallbladder fossa and the clips appeared to be in place. At this point the pneumoperitoneum was released and the mobilized colon and small bowel was exteriorized through the supraumbilical incision which had been extended and a wound protector had been placed. The gallbladder was also retrieved through this incision. Interrupted 4-0 Vicryl suture was placed to approximate the ileum to the transverse colon and enterotomies were created on the transverse colon and small bowel and and 75 mm blue load VANIA stapler was introduced and fired creating a [id number] stapled anastomosis. There was no bleeding noted from the staple line and enterotomies were grasped with Allis clamps and another load of 75 mm blue load VANIA stapler x 2 was fired to resect the specimen distal to the enterotomies. 4-0 Vicryl sutures were placed on the edges and the intersection of the staple line. The peritoneum was irrigated with 2 L of warm saline. All ports were removed under direct visualization and there was no bleeding noted from the port sites. The fascia at midline incision was closed using running #1 loop PDS. The wound was irrigated with saline, skin was closed with simone.. 10 mL of 0.5% Marcaine was infiltrated around the incisions. The patient was transferred to the ICU with Santa catheter in place.
[2020-01-01] MEDS: morphine 4 mg/mL SDV 1 mL 3 MG IVP ×3 (20:10→23:48)
[2020-01-01 20:21] LABS: Basophils % 0.2 %; Eosinophils % 0.1 %; Hematocrit 40.6 % (37.0-47.0); Hemoglobin 12.4 g/dL (11.5-15.3); Lymphocytes # 0.8 10^3/uL (0.8-4.8); Lymphocytes % 4.9 %; Mean Corpuscular HGB Conc 30.5 g/dL (30.0-36.0); Mean Corpuscular Hemoglobin 30.2 pg (28.0-34.0); Mean Corpuscular Volume 98.8 fL (81-99); Monocytes # 1.2 10^3/uL (0.2-0.9); Monocytes % 7.4 %; Neutrophils % 85.9 %; Nucleated Red Blood Cells % 0 %; Platelet Count 279 10^3/cmm (130-400); Red Blood Count 4.11 10^6/uL (4.1-5.3); Red Cell Distribution Width 12.3 % (12.1-15.1); White Blood Count 16.3 10^3/uL (4.0-10.0)
[2020-01-01 20:26] LABS: Lactic Acid 1.9 mmol/L (0.5-2.2)
[2020-01-01 20:27] LABS: Anion Gap 16.1 (5-19); Blood Urea Nitrogen 16 mg/dL (8-23); Calcium 8.8 mg/dL (8.5-10.5); Carbon Dioxide 20 mmol/L (22-29); Chloride 107 mmol/L (98-107); Glomerular Filtration Rate 55.6 mL/min (90-130); Glucose 113 mg/dL (74-106); Osmolality Calculated 285 mOsm/kg (285-295); Potassium 4.1 mmol/L (3.5-5.1); Sodium 139 mmol/L (136-145)
[2020-01-01] MEDS: dextrose 5%-ns + KCl 20 20 MEQ/1,000 ML BAG 100 MEQ IV (20:28)
[2020-01-01] MEDS: famotidine 20 mg/2 mL INJ IVP (20:57)
[2020-01-01] MEDS: metroNIDAZOLE IV 500 MG/100 ML PREMIX 100 MG IV (20:58)
[2020-01-01] MEDS: sennosides 8.6 mg Tablet 17.2 MG PO (21:55)
[2020-01-01] MEDS: nicotine 21 mg Patch 1 PATCH TRANSDERMA (22:33)
--- NOTE | 2020-01-01 23:26 | PC.NURSE ---
Recovery Note Phase 1: Out Recovery Date 01/01/20 Out Recovery Time 2030 ESBL 75ml Urine Output: 300ml Total fluids given in OR: 1400ml Phase 1 Discharge Criteria O2 Concerns: No, Breathing is even and non-labored on 6L NC. O2 sat 98% Hemodynamic Concerns: No. Normotensive Verbal Responsive Concerns: No, alert oriented to person, place, time. Extremity Activity Concerns: No, pt moves all extremities on command. N/V Concerns: No Bleeding Concerns: No
[2020-01-02] VITALS (44 sets, daily range): BP systolic 88–121; BP diastolic 42–73; PULSE 80–98; RESP 10–25; TEMP 37.2–37.6; O2SAT 92–99
[2020-01-02] MEDS: HYDROcodone-acetaminophen 5-325 mg Tablet 1 TAB PO ×3 (03:20→20:57)
--- NOTE | 2020-01-02 03:54 | PC.NURSE ---
Son Tae Coombs had called earlier in shift to check on his mothers status. Status update was given after permission was received by patient. Tae Coombs had verbalized some patient history to nurse. Verbalizes I want you to know she has had an issue with taking pain medication in past. Her last hospitalization from shoulder surgery she was caught taking her own pain medication from a pen, along with the pain medication the nurses were giving. She ended up in a coma
[2020-01-02 04:03] LABS: ABG PCO2 46.7 mmHg (35-45); ABG PH Result 7.31 (7.35-7.45); Arterial Blood Gas Hematocrit 33.6 % (37-47); Base Excess ABG -2.8 mmol/L (-2.0-2.0); Blood Gas Allen Test Pos; Blood Gas Sample Site Radial, right; Blood Gas Sample Type Arterial; HCO3 ABG 23.6 mmol/L (22-26); Oxygen Device NC; PO2 ABG 69.9 mmHg (80.0-100.0)
[2020-01-02 04:22] LABS: Basophils % 0.1 %; Hematocrit 32.8 % (37.0-47.0); Hemoglobin 10.4 g/dL (11.5-15.3); Lymphocytes % 6.7 %; Mean Corpuscular HGB Conc 31.7 g/dL (30.0-36.0); Mean Corpuscular Hemoglobin 30.1 pg (28.0-34.0); Mean Corpuscular Volume 94.8 fL (81-99); Mean Platelet Volume 10.4 fL (7.4-10.4); Monocytes # 0.9 10^3/uL (0.2-0.9); Monocytes % 5.9 %; Neutrophils # 13.2 10^3/uL (1.8-7.7); Neutrophils % 86.3 %; Nucleated Red Blood Cells % 0 %; Platelet Count 232 10^3/cmm (130-400); Red Blood Count 3.46 10^6/uL (4.1-5.3); Red Cell Distribution Width 12.4 % (12.1-15.1); White Blood Count 15.3 10^3/uL (4.0-10.0)
[2020-01-02 04:30] LABS: Alanine Aminotransferase 119 U/L (0-33); Albumin Level 3.1 g/dL (3.5-5.2); Alkaline Phosphatase 118 IU/L (35-105); Anion Gap 14.9 (5-19); Aspartate Amino Transferase 130 U/L (0-32); Blood Urea Nitrogen 14 mg/dL (8-23); Calcium 8.2 mg/dL (8.5-10.5); Carbon Dioxide 22 mmol/L (22-29); Chloride 109 mmol/L (98-107); Glomerular Filtration Rate 62.8 mL/min (90-130); Glucose 146 mg/dL (74-106); Potassium 3.9 mmol/L (3.5-5.1); Sodium 142 mmol/L (136-145); Total Bilirubin 0.3 mg/dL (0.15-1.2); Total Protein 6.1 g/dL (6.6-8.7)
[2020-01-02] MEDS: metroNIDAZOLE IV 500 MG/100 ML PREMIX 100 MG IV (04:34)
[2020-01-02] MEDS: baclofen 10 mg Tablet PO ×2 (04:46→20:56)
[2020-01-02] MEDS: morphine 4 mg/mL SDV 1 mL 3 MG IVP ×2 (04:47→19:33)
[2020-01-02] MEDS: enoxaparin 40 mg/0.4 mL Syringe SUBCUT (05:54)
[2020-01-02] MEDS: piperacillin-tazobactam 3.375 GM in sodium chloride 0.9% (plus) 50 ML IV ×3 (06:56→23:44)
[2020-01-02] MEDS: docusate sodium 100 mg Capsule PO ×2 (08:30→18:25)
[2020-01-02] MEDS: nicotine 21 mg Patch 1 PATCH TRANSDERMA (08:30)
[2020-01-02] MEDS: aspirin 81 mg Chew Tablet PO (08:31)
[2020-01-02] MEDS: famotidine 20 mg/2 mL INJ IVP ×2 (08:31→19:34)
--- NOTE | 2020-01-02 10:38 | ANE.PACU2 ---
 Inpatient post-anesthesia follow up: Airway intact: Yes Vital signs: Temperature 99.2 F Pulse Rate [Left R adial] 87 Pulse Rate 91 Respiratory Rate 16 Blood Pressure [Ri ght Arm] 91/72 Blood Pressure 101/66 Pulse Oximetry 97 Oxygen Delivery Me thod Room Air Oxygen Flow Rate 2 Fraction of Inspir ed Oxygen Hydration adequate: Yes Nausea and vomiting: No Pain level: 5 Mental status: Baseline
[2020-01-02] MEDS: dextrose 5%-ns + KCl 20 20 MEQ/1,000 ML BAG 100 MEQ IV ×2 (10:45→20:58)
--- NOTE | 2020-01-02 13:27 | PM.PN ---
Subjective Subjective: Interval history: Patient did well overnight, no nausea or vomiting, feels hungry. Thinks he is passing a small amount of flatus. Pain is controlled Vitals/I&O/Wt Last Vital Signs Temp 98.9 F 01/02/20 10:00 Pulse 80 01/02/20 12:00 Resp 16 01/02/20 12:00 BP 93/56 01/02/20 12:00 Pulse Ox 93 01/02/20 12:00 01/01/20 01/02/20 01/02/20 22:59 06:59 14:59 Intake Total 1288.333 / 2466.666 1178.333 / 2466.666 333.334 / 333.334 Output Total 100 / 800 700 / 800 Balance 1188.333 / 1666.666 478.333 / 1666.666 333.334 / 333.334 Weight last 48 hrs Weight 187 lb Physical Exam Narrative: EXAM NARRATIVE: Abdomen: Soft, tender, nondistended, incision clean dry and intact Urinary Catheter Management^: Santa: Cath Placed During This Visit: no Data : 01/02/20 03:45 01/02/20 03:45 Micro: Microbiology 01/01/20 10:57 Blood Culture - Preliminary Blood NEGATIVE TO DATE 01/01/20 10:52 Blood Culture - Preliminary Blood NEGATIVE TO DATE A&P Assessment and plan (1) S/P right hemicolectomy: Status post laparoscopic right hemicolectomy and cholecystectomy postop day 1 with postop ileus Continue IV fluids at 100 cc/h Ambulate with physical therapy Start clear liquid diet Her blood pressure has been on the softer side and therefore we will keep her in ICU for now. If she remains stable then will DC the Santa and move her to the floor Pepcid for GI prophylaxis Lovenox for DVT prophylaxis Resume home medications Status: Acute Code(s): Z90.49 - Acquired absence of other specified parts of digestive tract Attestations Medical Necessity Statement*: Patient is status post colectomy and needs continued inpatient stay to ensure that she does not develop any complications and ensure resolution of ileus Coding Level of Care Code Acute Course Instructor for g Fwd Diagnoses S/P right hemicolectomy Z90.49
[2020-01-02] MEDS: ondansetron 2 mg/ML SDV 2 mL 4 MG IVP (19:46)
[2020-01-02] MEDS: sennosides 8.6 mg Tablet 17.2 MG PO (20:56)
[2020-01-02] MEDS: fluticasone nasal spray 16gm Btl 2 SPRAY NASAL (20:57)
--- NOTE | 2020-01-02 20:57 | P.EN_ITS ---
Event Note Event Note: Reviewed lab, clinical course, progress notes initial consult, nursing notes. Appears to be stable after surgery POD number one. No changes in current orders needed from senior sales consultant standpoint. Will review again tomorrow, and formal follow up senior sales consultant note will be completed.
--- NOTE | 2020-01-02 20:57 | PM.EVENT ---
Event Note Event Note: Reviewed lab, clinical course, progress notes initial consult, nursing notes. Appears to be stable after surgery POD number one. No changes in current orders needed from accounting consultant standpoint. Will review again tomorrow, and formal follow up accounting consultant note will be completed.
[2020-01-02] MEDS: alum-mag-hydroxide-sime 30 mL UDC PO (21:49)
[2020-01-03] VITALS (13 sets, daily range): BP systolic 108–135; BP diastolic 56–96; PULSE 92–118; RESP 18–28; TEMP 36.4–37.1; O2SAT 90–97
[2020-01-03] MEDS: HYDROcodone-acetaminophen 5-325 mg Tablet 1 TAB PO ×2 (02:45→18:41)
[2020-01-03] MEDS: ondansetron 2 mg/ML SDV 2 mL 4 MG IVP ×4 (02:46→20:10)
[2020-01-03 05:01] LABS: Basophils % 0.3 %; Eosinophils # 0.1 10^3/uL (0.0-0.8); Eosinophils % 0.8 %; Hematocrit 33.9 % (37.0-47.0); Hemoglobin 10.8 g/dL (11.5-15.3); Lymphocytes # 1.4 10^3/uL (0.8-4.8); Lymphocytes % 12.3 %; Mean Corpuscular HGB Conc 31.9 g/dL (30.0-36.0); Mean Corpuscular Volume 97.4 fL (81-99); Mean Platelet Volume 10.3 fL (7.4-10.4); Monocytes # 0.8 10^3/uL (0.2-0.9); Monocytes % 6.4 %; Neutrophils # 9.3 10^3/uL (1.8-7.7); Neutrophils % 79.6 %; Nucleated Red Blood Cells % 0 %; Platelet Count 212 10^3/cmm (130-400); Red Blood Count 3.48 10^6/uL (4.1-5.3); Red Cell Distribution Width 12.9 % (12.1-15.1); White Blood Count 11.7 10^3/uL (4.0-10.0)
[2020-01-03 05:35] LABS: Anion Gap 15.5 (5-19); Blood Urea Nitrogen 9 mg/dL (8-23); Calcium 10.1 mg/dL (8.5-10.5); Carbon Dioxide 21 mmol/L (22-29); Chloride 107 mmol/L (98-107); Glucose 115 mg/dL (74-106); Osmolality Calculated 287 mOsm/kg (285-295); Potassium 3.5 mmol/L (3.5-5.1); Sodium 140 mmol/L (136-145)
[2020-01-03] MEDS: enoxaparin 40 mg/0.4 mL Syringe SUBCUT (05:40)
[2020-01-03] MEDS: FUROsemide 40 mg Tablet PO (06:30)
[2020-01-03] MEDS: baclofen 10 mg Tablet PO (06:30)
[2020-01-03] MEDS: piperacillin-tazobactam 3.375 GM in sodium chloride 0.9% (plus) 50 ML IV ×3 (06:30→22:44)
--- NOTE | 2020-01-03 08:30 | P.PN_ITS ---
Subjective Subjective: Interval history: Rebecca reports she is had some nausea and vomiting. She denies passing any flatus. No stool. Medications: Reviewed: Yes Vitals/I&O/Wt Last Vital Signs Temp 98.4 F 01/03/20 05:56 Pulse 115 H 01/03/20 05:56 Resp 20 H 01/03/20 05:56 BP 131/96 01/03/20 05:56 Pulse Ox 95 01/03/20 05:56 01/02/20 01/03/20 01/03/20 22:59 06:59 14:59 Intake Total 1290 / 1673.334 170 / 1843.334 80 / 80 Output Total 1400 / 1400 1350 / 2750 350 / 350 Balance -110 / 273.334 -1180 / -906.666 -270 / -270 Physical Exam Narrative: EXAM NARRATIVE: General exam no apparent distress Cardiovascular slight tachycardia, regular, no murmur Lungs clear Abdomen is soft hypoactive bowel sounds. Some generalized tenderness Urinary Catheter Management^: Santa: Cath Placed During This Visit: no Data : 01/03/20 04:32 01/03/20 04:32 Micro: Microbiology 01/01/20 10:57 Blood Culture - Preliminary Blood NEGATIVE TO DATE 01/01/20 10:52 Blood Culture - Preliminary Blood NEGATIVE TO DATE A&P Assessment and plan (1) Cholelithiasis and cholecystitis without obstruction: Postoperative laparoscopic cholecystectomy Status: Resolved Qualifiers: Cholecystitis acuity: acute Cholelithiasis location: gallbladder Qualified Code(s): K80.00 - Calculus of gallbladder with acute cholecystitis without obstruction Code(s): K80.10 - Calculus of gallbladder with chronic cholecystitis without obstruction (2) COPD (chronic obstructive pulmonary disease): Stable Status: Acute Code(s): J44.9 - Chronic obstructive pulmonary disease, unspecified (3) HTN (hypertension): Continue home medications Status: Acute Code(s): I10 - Essential (primary) hypertension (4) CAD (coronary artery disease): Stable Status: Acute Code(s): I25.10 - Atherosclerotic heart disease of [place] coronary artery without angina pectoris (5) Major depressive disorder, recurrent, in full remission: Status: Acute Code(s): F33.42 - Major depressive disorder, recurrent, in full remission (6) S/P right hemicolectomy: Colectomy secondary to necrosis Status: Acute Code(s): Z90.49 - Acquired absence of other specified parts of digestive tract (7) Necrosis of intestine: Continue Zosyn Status: Resolved Code(s): K55.069 - Acute infarction of intestine, part and extent unspecified Additional A&P Information Tachycardic. Beta-mara needs to be reinitiated. If she is not able to tolerate by mouth this will be changed to IV Continue Lovenox for DVT prophylaxis Attestations Medical Necessity Statement*: Needs continued hospitalization for close monitoring following hemicolectomy, cholecystectomy Coding Level of Care Code Acute Topology Professor for [facility] Fwd Diagnoses Cholelithiasis and cholecystitis without obstruction K80.00 Cholecystitis acuity: acute Cholelithiasis location: gallbladder COPD (chronic obstructive pulmonary disease) J44.9 HTN (hypertension) I10 CAD (coronary artery disease) I25.10 Major depressive disorder, recurrent, in full remission F33.42 S/P right hemicolectomy Z90.49 Necrosis of intestine K55.069
[2020-01-03] MEDS: famotidine 20 mg/2 mL INJ IVP ×2 (09:34→20:10)
[2020-01-03] MEDS: aspirin 81 mg Chew Tablet PO (09:35)
[2020-01-03] MEDS: nicotine 21 mg Patch 1 PATCH TRANSDERMA (09:35)
[2020-01-03] MEDS: docusate sodium 100 mg Capsule PO ×2 (09:35→18:00)
[2020-01-03] MEDS: metoprolol tartrate 25 mg Tablet PO ×2 (09:35→18:00)
[2020-01-03 09:43] LABS: Lactic Acid level (Lactate) 0.6 mmol/L (0.5-2.2)
--- NOTE | 2020-01-03 09:45 | PC.OT ---
OT tx attempted at this time. Pt nauseated/vomiting and requests therapist try again later . Therapist to attempt tx later today if possible.
--- NOTE | 2020-01-03 11:38 | P.PN_ITS ---
Subjective Subjective: Interval history: Patient had couple episodes of emesis, passing small amount of flatus, abdominal pain is tolerable Medications: Reviewed: Yes Vitals/I&O/Wt Last Vital Signs Temp 98.4 F 01/03/20 10:00 Pulse 111 H 01/03/20 10:00 Resp 28 H 01/03/20 10:00 BP 122/85 01/03/20 10:00 Pulse Ox 96 01/03/20 10:00 01/02/20 01/03/20 01/03/20 22:59 06:59 14:59 Intake Total 1290 / 1843.334 170 / 1843.334 80 / 80 Output Total 1400 / 2750 1350 / 2750 350 / 350 Balance -110 / -906.666 -1180 / -906.666 -270 / -270 Physical Exam Narrative: EXAM NARRATIVE: Abdomen: Soft, slightly distended, tender, incision clean dry and intact Urinary Catheter Management^: Santa: Cath Placed During This Visit: no Data : 01/03/20 04:32 01/03/20 04:32 Micro: Microbiology 01/01/20 10:57 Blood Culture - Preliminary Blood NEGATIVE TO DATE 01/01/20 10:52 Blood Culture - Preliminary Blood NEGATIVE TO DATE A&P Assessment and plan (1) S/P right hemicolectomy: Postop day 2 with postop ileus DC clear liquid diet, n.p.o. with ice chips Continue IV fluids Ambulate ad heaven. with physical therapy DVT prophylaxis GI prophylaxis Daily labs Incentive spirometry, wean O2 to room air Transfer to floor Appreciate input from Dr. Klein. Status: Acute Code(s): Z90.49 - Acquired absence of other specified parts of digestive tract Attestations Medical Necessity Statement*: Patient will need continued inpatient stay to ensure resolution of ileus status post right hemicolectomy Coding Level of Care Code Acute Clinical Support Specialist for g Fwd Diagnoses S/P right hemicolectomy Z90.49
--- NOTE | 2020-01-03 11:51 | PC.CHAP ---
Pastoral Care Encounter/Spiritual Assessment Type of Contact [] Declined informatics physician visit [] Patient/Family/Request visit [] Outpatient visit [] Follow-up visit [] Physician referral [] Code/Alert [] Routine visit [] Staff referral [] Actively dying [x] Patient sleeping [] Family support [] [] Out of room [] Palliative care [] [] Receiving care in room [] Pre-surgical visit [] Trauma [] Long length of stay [] ICU visit [] Other: Relational/Emotional Strength [] Patient feels connected with others/family/visitors/staff [] Distress [] Loneliness/isolation [] Abandonment Spirituality of Patient [] Person of Radha [] Attends Baptist of their Radha [] Believes in Prayer [] Reads Bible or Presybeterian materials [] There are Spiritual issues to be addressed Bench Worker Apprentice Interventions [] Prayer [] Active listening [] Non-anxious presence [] Spiritual/emotional support [] Crisis/trauma care [] Spiritual counseling [] Bereavement support [] Provided bereavement packet [] Provided Bible/devotional materials [] Provided toy/stuffed animal, coloring book to patient or family member [] Provided Communion [] Anointing/[place] [] Salvation [] Completed spiritual assessment [] Other: Impact on Illness or Injury [] Angry [] Fearful [] Anxious [] Often cries [] Exhaustion [] Unable to work [] Unable to attend orthodox [] Unable to walk/stand [] Unable to read [] Unable to drive [] Unable to eat/drink [] Unable to sleep [] Unable to be with family [] Patient intubated [] Other: Summary pt. was sleeoing, will need a follow up visit. Time spent with patient 5 min.
--- NOTE | 2020-01-03 13:45 | PC.NURSE ---
Patient report called to VALENCIA Collazo. Patient belongings gathered at this time. PT and OT assisted this nurse in transferring patient via wheelchair to room 274-1. Patient ambulated to bed with steady gait noted. Patient in bed and stable at the time of departure with PT/OT at side.
[2020-01-03] MEDS: alum-mag-hydroxide-sime 30 mL UDC PO ×2 (15:40→23:55)
[2020-01-03] MEDS: dextrose 5%-ns + KCl 20 20 MEQ/1,000 ML BAG 100 MEQ IV (15:43)
[2020-01-03] MEDS: fluticasone nasal spray 16gm Btl 2 SPRAY NASAL (21:04)
[2020-01-03] MEDS: sennosides 8.6 mg Tablet 17.2 MG PO (21:05)
[2020-01-03] MEDS: morphine 4 mg/mL SDV 1 mL 3 MG IVP (22:30)
[2020-01-04] VITALS (9 sets, daily range): BP systolic 98–140; BP diastolic 69–96; PULSE 85–109; RESP 17–20; TEMP 36.4–36.8; O2SAT 90–92
[2020-01-04] MEDS: ondansetron 2 mg/ML SDV 2 mL 4 MG IVP ×3 (00:26→16:42)
[2020-01-04 05:08] LABS: Basophils % 0.2 %; Eosinophils # 0.2 10^3/uL (0.0-0.8); Eosinophils % 1.8 %; Hematocrit 39.1 % (37.0-47.0); Hemoglobin 12.6 g/dL (11.5-15.3); Lymphocytes # 1.2 10^3/uL (0.8-4.8); Lymphocytes % 11.1 %; Mean Corpuscular HGB Conc 32.2 g/dL (30.0-36.0); Mean Corpuscular Hemoglobin 31.1 pg (28.0-34.0); Mean Corpuscular Volume 96.5 fL (81-99); Mean Platelet Volume 10.8 fL (7.4-10.4); Monocytes % 8.7 %; Neutrophils # 8.6 10^3/uL (1.8-7.7); Neutrophils % 77.6 %; Nucleated Red Blood Cells % 0 %; Platelet Count 336 10^3/cmm (130-400); Red Blood Count 4.05 10^6/uL (4.1-5.3); Red Cell Distribution Width 12.7 % (12.1-15.1)
[2020-01-04 05:22] LABS: Anion Gap 14.3 (5-19); Blood Urea Nitrogen 17 mg/dL (8-23); Calcium 9.9 mg/dL (8.5-10.5); Carbon Dioxide 26 mmol/L (22-29); Chloride 106 mmol/L (98-107); Glomerular Filtration Rate 62.8 mL/min (90-130); Glucose 163 mg/dL (74-106); Osmolality Calculated 294 mOsm/kg (285-295); Potassium 4.3 mmol/L (3.5-5.1); Sodium 142 mmol/L (136-145)
[2020-01-04] MEDS: FUROsemide 40 mg Tablet PO (05:55)
[2020-01-04] MEDS: enoxaparin 40 mg/0.4 mL Syringe SUBCUT (05:55)
[2020-01-04] MEDS: piperacillin-tazobactam 3.375 GM in sodium chloride 0.9% (plus) 50 ML IV ×2 (05:58→14:29)
[2020-01-04] MEDS: famotidine 20 mg/2 mL INJ IVP ×2 (07:43→20:29)
[2020-01-04] MEDS: docusate sodium 100 mg Capsule PO ×2 (09:19→21:16)
[2020-01-04] MEDS: nicotine 21 mg Patch 1 PATCH TRANSDERMA (09:19)
[2020-01-04] MEDS: metoprolol tartrate 25 mg Tablet PO ×2 (09:19→21:16)
[2020-01-04] MEDS: aspirin 81 mg Chew Tablet PO (09:19)
[2020-01-04] MEDS: fluticasone nasal spray 16gm Btl 2 SPRAY NASAL (09:23)
[2020-01-04] MEDS: alum-mag-hydroxide-sime 30 mL UDC PO ×2 (09:25→18:09)
--- NOTE | 2020-01-04 11:38 | PM.PN ---
Subjective Subjective: Interval history: Patient had 1 more episode of emesis today, passing flatus, no BM. Feels a bit distended. Denies significant abdominal pain. Vitals/I&O/Wt Last Vital Signs Temp 98.2 F 01/04/20 11:21 Pulse 90 01/04/20 11:21 Resp 18 01/04/20 11:21 BP 140/96 01/04/20 11:21 Pulse Ox 90 01/04/20 11:21 01/03/20 01/04/20 01/04/20 22:59 06:59 14:59 Intake Total 170 / 350 50 / 350 Output Total 300 / 820 150 / 820 200 / 200 Balance -130 / -470 -100 / -470 -200 / -200 Physical Exam Narrative: EXAM NARRATIVE: Abdomen: Soft, tender, minimally distended, incision clean dry and intact Urinary Catheter Management^: Santa: Cath Placed During This Visit: no Data : 01/04/20 04:36 01/04/20 04:36 A&P Assessment and plan (1) S/P right hemicolectomy: Continue with n.p.o. and ice chips Ambulate ad heaven. Minimize opioid medications Maintain aggressive bowel regimen Lovenox for DVT prophylaxis Protonix for GI prophylaxis Medical management as per Dr. Mota Status: Acute Code(s): Z90.49 - Acquired absence of other specified parts of digestive tract Attestations Medical Necessity Statement*: Status post right hemicolectomy with postop ileus requiring continued inpatient stay Coding Level of Care Code Acute Chief Operator Synthesis for Chg Fwd Diagnoses S/P right hemicolectomy Z90.49
--- NOTE | 2020-01-04 12:02 | PC.SOCIAL ---
Pg 2 of IMM Pg 2 of IMM was explained to and signed by patient, copy was provided, and form placed in chart. She verbalized understanding and had no questions.
--- NOTE | 2020-01-04 12:45 | PC.NURSE ---
Ambulate Pt up to ambulate in [place] with family members. Ambulated around 2nd floor on room air while pushing a wheel chair. No shortness of breath noted.
--- NOTE | 2020-01-04 12:54 | P.PN_ITS ---
Subjective Subjective: Interval history: Still seems to be having quite a bit of nausea. Little bit of vomiting. No significant gas or bowel movements this morning. No chest pain or shortness of breath. No fevers or chills. Vitals/I&O/Wt Last Vital Signs Temp 98.2 F 01/04/20 11:21 Pulse 90 01/04/20 11:21 Resp 18 01/04/20 11:21 BP 140/96 01/04/20 11:21 Pulse Ox 90 01/04/20 11:21 01/03/20 01/04/20 01/04/20 22:59 06:59 14:59 Intake Total 170 / 350 50 / 350 Output Total 300 / 820 150 / 820 200 / 200 Balance -130 / -470 -100 / -470 -200 / -200 Physical Exam Narrative: EXAM NARRATIVE: General: No acute distress, Alert. Well nourished. Heart: Regular rate and rhythm. No murmurs, rubs or gallops. Normal capillary refill. Lungs: Clear to auscultation. No wheezes, rhonchi or rales. Abdomen: Absent bowel sounds. Mild diffuse tenderness, non-distended. No hepatosplenomegaly. No gaurding. Extremities: No clubbing, cyanosis, or edema. Negative Chepe's Urinary Catheter Management^: Santa: Cath Placed During This Visit: no Data : 01/04/20 04:36 01/04/20 04:36 A&P Assessment and plan (1) S/P right hemicolectomy: -Postop day 3. Patient still struggling with an ileus. Continue postoperative care per surgery. Status: Acute Code(s): Z90.49 - Acquired absence of other specified parts of digestive tract (2) CAD (coronary artery disease): Stable. No acute process. Status: Acute Code(s): I25.10 - Atherosclerotic heart disease of [place] coronary artery without angina pectoris (3) COPD (chronic obstructive pulmonary disease): Stable. Continue incentive spirometry and monitor for worsening. Status: Acute Code(s): J44.9 - Chronic obstructive pulmonary disease, unspecified Attestations Medical Necessity Statement*: 64-year-old female status post cholecystectomy requiring postoperative care in the inpatient setting. Coding Level of Care Code Acute Family Physician for Chg Fwd Diagnoses S/P right hemicolectomy Z90.49 CAD (coronary artery disease) I25.10 COPD (chronic obstructive pulmonary disease) J44.9
[2020-01-04] MEDS: dextrose 5%-ns + KCl 20 20 MEQ/1,000 ML BAG 100 MEQ IV (14:40)
--- NOTE | 2020-01-04 17:20 | USCV_ITS ---
Malvin Rebecca Age: 64 Gender: F : 1955 Exam Date: 01/04/2020 13:06 Ordering Phys: Brian Klein MD Technologist: Cristal Bradford Exam Location[place] [facility] [place]: Possible embolic disease BP: 121 / 79 HR: 85 Rhythm: Sinus Technical Quality: Technically difficult study MEASUREMENTS (Male / Female) Normal Values 2D ECHO LV Diastolic Diameter PLAX 3.9 cm 4.2 - 5.9 / 3.9 - 5.3 cm LV Systolic Diameter PLAX 2.4 cm LV Chamber Size 3.4 cm IVS Diastolic Thickness 1.8 cm 0.6 - 1.0 / 0.6 - 0.9 cm IVS Systolic Thickness 1.8 cm LVPW Diastolic Thickness 1.4 cm 0.6 - 1.0 / 0.6 - 0.9 cm LVPW Systolic Thickness 1.5 cm RV Chamber Size 2.2 cm LVOT Diameter 2.1 cm LV Ejection Fraction 2D Teich 68.2 % LA Diameter 4.7 cm LA Width 2.9 cm LA Height 5.6 cm RA Width 2.8 cm RA Height 4.7 cm Aorta at Sinotubular Diameter 3.3 cm M-MODE LV Diastolic Diameter MM 5.1 cm 4.2 - 5.9 / 3.9 - 5.3 cm LV Systolic Diameter MM 3.5 cm LV Ejection Fraction MM Teich 59.1 % IVS Diastolic Thickness MM 1.3 cm 0.6 - 1.0 / 0.6 - 0.9 cm IVS Systolic Thickness MM 1.5 cm LVPW Diastolic Thickness MM 1.4 cm 0.6 - 1.0 / 0.6 - 0.9 cm LVPW Systolic Thickness MM 2.3 cm Aortic Annulus Diameter 4.1 cm LA Ao Ratio MM 1.1 MV E Point Septal Separation 0.4 cm DOPPLER AV Peak Velocity 109.0 cm/s LVOT Peak Velocity 98.0 cm/s AV Area Cont Eq vti 2.9 cm squared AV Area Cont Eq pk 3.0 cm squared MV Area PHT 2.9 cm squared Mitral E to A Ratio 0.6 MV E' Velocity 9.0 cm/s Mitral E to MV E' Ratio 7.6 Mitral E to LV E' Lateral Ratio 7.8 Mitral E to LV E' Septal Ratio 7.5 TR Peak Velocity 247.0 cm/s TR Peak Gradient 24.4 mmHg TR Mean Velocity 213.1 cm/s TR Mean Gradient 18.3 mmHg TR Velocity Time Integral 69.3 cm TV Peak E Velocity 45.0 cm/s Right Atrial Pressure 3.0 mmHg Pulmonary Artery Systolic Pressu 27.4 mmHg PV Peak Velocity 70.0 cm/s RV Acceleration Time 0.1 s RV Ejection Time 0.2 s RV AcT/ET 0.2 FINDINGS Left Ventricle Normal left ventricular cavity size. Normal left ventricular systolic function. No regional wall motion abnormalities. Left ventricular ejection fraction is estimated at 59 %. Grade I/IV diastolic dysfunction (abnormal relaxation filling pattern), normal to mildly elevated filling pressures. Right Ventricle The right ventricle is normal in size and function. Right Atrium The right atrium is normal in size. Left Atrium The left atrium is normal in size. Mitral Valve Moderately thickened mitral valve. Moderate mitral annular calcification. No mitral valve stenosis. No mitral valve regurgitation. Aortic Valve Moderate aortic valve calcification. No aortic valve stenosis. No aortic valve regurgitation. Tricuspid Valve Structurally normal tricuspid valve without significant stenosis or regurgitation. Pulmonary artery systolic pressure is normal. Pulmonic Valve Structurally normal pulmonic valve without significant stenosis. There is no pulmonic regurgitation. Pericardium Normal pericardium without effusion. Aorta Normal ascending aorta dimension. CONCLUSIONS 1-Normal left ventricular cavity size. Normal left ventricular systolic function. No regional wall motion abnormalities. Left ventricular ejection fraction is estimated at 59 %. Grade I/IV diastolic dysfunction (abnormal relaxation filling pattern), normal to mildly elevated filling pressures. 2-Moderately thickened mitral valve. Moderate mitral annular calcification. No mitral valve stenosis. No mitral valve regurgitation. 3-Moderate aortic valve calcification. No aortic valve stenosis. No aortic valve regurgitation. 4-There is no pericardial effusion. 5-Right atrial pressure is around 5 mm of mercury. 6-No significant change since the prior echocardiogram study of 08/31/2018. Mirlande Nowak MD (Electronically Signed) Final Date: 04 January 2020 18:02 S
[2020-01-04] MEDS: metoclopramide 5 mg/mL SDV 2 mL IVP (20:29)
[2020-01-04] MEDS: sennosides 8.6 mg Tablet 17.2 MG PO (21:15)
[2020-01-05] VITALS (11 sets, daily range): BP systolic 109–139; BP diastolic 71–87; PULSE 92–118; RESP 16–32; TEMP 36.5–37.7; O2SAT 85–93
[2020-01-05] MEDS: piperacillin-tazobactam 3.375 GM in sodium chloride 0.9% (plus) 50 ML IV ×4 (00:06→23:18)
[2020-01-05] MEDS: dextrose 5%-ns + KCl 20 20 MEQ/1,000 ML BAG 100 MEQ IV ×2 (00:17→11:10)
[2020-01-05] MEDS: FUROsemide 40 mg Tablet PO (06:08)
[2020-01-05] MEDS: enoxaparin 40 mg/0.4 mL Syringe SUBCUT (06:08)
[2020-01-05] MEDS: HYDROcodone-acetaminophen 5-325 mg Tablet 1 TAB PO (06:32)
--- NOTE | 2020-01-05 07:18 | XR_ITS ---
WS: [id number] Acute abdomen series, 01/05/2020 Clinical Data: post op ileus Comparison: Portable chest, 01/01/2020 Findings: In the chest there are no nodules, masses or effusions. The heart is normal. The pulmonary vascularity is not increased. There is subcutaneous emphysema along the right chest wall. The diaphra gm is minimally elevated and there is left basilar atelectasis. Midline sternotomy sutures and medias tinal clips are present. There is a right total shoulder prosthesis. No free air is seen beneath the diaphragms. No abnormal intra-abdominal masses or calcifications are seen. There are clips in the right upper quadrant from surgery. The small bowel loops are moderately dilated with air-fluid levels which can be seen with a severe postoperative ileus or early small brittaney l obstruction. XR/XR acute abdomen series [id number] Impression: 1. Subcutaneous emphysema along right lateral chest wall. 2. Dilatation of the small bowel which can be seen with severe ileus or possibl e early small bowel obstruction. 3. Elevation left diaphragm with left basilar atelectasis.
[2020-01-05 08:45] LABS: Basophils # 0.1 10^3/uL (0.0-0.1); Basophils % 0.3 %; Eosinophils % 0.1 %; Hematocrit 38.8 % (37.0-47.0); Hemoglobin 12.6 g/dL (11.5-15.3); Lymphocytes # 1.6 10^3/uL (0.8-4.8); Lymphocytes % 10.3 %; Mean Corpuscular HGB Conc 32.5 g/dL (30.0-36.0); Mean Corpuscular Hemoglobin 30.1 pg (28.0-34.0); Mean Corpuscular Volume 92.6 fL (81-99); Mean Platelet Volume 10.9 fL (7.4-10.4); Monocytes % 12.5 %; Neutrophils # 11.9 10^3/uL (1.8-7.7); Nucleated Red Blood Cells % 0 %; Platelet Count 393 10^3/cmm (130-400); Red Blood Count 4.19 10^6/uL (4.1-5.3); Red Cell Distribution Width 12.5 % (12.1-15.1); White Blood Count 15.7 10^3/uL (4.0-10.0)
[2020-01-05 09:30] LABS: Alanine Aminotransferase 35 U/L (0-33); Albumin Level 3.8 g/dL (3.5-5.2); Alkaline Phosphatase 106 IU/L (35-105); Anion Gap 18.4 (5-19); Aspartate Amino Transferase 19 U/L (0-32); Blood Urea Nitrogen 25 mg/dL (8-23); Carbon Dioxide 28 mmol/L (22-29); Chloride 102 mmol/L (98-107); Globulin 3.1 g/dL (1.3-4.6); Glomerular Filtration Rate 41.1 mL/min (90-130); Glucose 169 mg/dL (74-106); Potassium 4.4 mmol/L (3.5-5.1); Sodium 144 mmol/L (136-145); Total Bilirubin 0.6 mg/dL (0.15-1.2); Total Protein 6.9 g/dL (6.6-8.7)
[2020-01-05] MEDS: nicotine 21 mg Patch 1 PATCH TRANSDERMA (09:35)
[2020-01-05] MEDS: famotidine 20 mg/2 mL INJ IVP (09:36)
--- NOTE | 2020-01-05 11:07 | XR_ITS ---
WS: [id number] Portable AP upright chest, 01/05/2020, 1235 hours Clinical Data: Verifying tube placement Comparison: PA chest, today, 0743 hours Findings: The nasogastric tube appears to be in the esophagus and ending in the stomach. There is sti ll subcutaneous emphysema along the right chest wall. The heart and lungs show no change. Midline raulito rnotomy sutures and the right total shoulder prosthesis remain in position. XR/XR chest 1V portable [id number] Impression: 1. Satisfactory placement of nasogastric tube. 2. No change in right subcutaneous emphysema.
--- NOTE | 2020-01-05 11:55 | PM.PN ---
Subjective Subjective: Interval history: Patient had quite a bit of nausea and vomiting yesterday and overnight. She feels like she may have aspirated some. KUB this morning revealed an ileus. When I had placed an NG tube. She is having a little more respiratory distress. Having some increased shortness of breath and wheezing. Medications: Reviewed: Yes Vitals/I&O/Wt Last Vital Signs Temp 97.7 F 01/05/20 11:14 Pulse 92 01/05/20 11:14 Resp 16 01/05/20 11:14 BP 124/71 01/05/20 11:14 Pulse Ox 92 01/05/20 11:14 01/04/20 01/05/20 01/05/20 22:59 06:59 14:59 Intake Total 110 / 5020.223 4708.667 / 5059.196 3819 / 1000 Output Total 200 / 400 Balance 110 / 771.667 811.667 / 823.236 7761 / 1000 Physical Exam Narrative: EXAM NARRATIVE: General: No acute distress, Alert. Well nourished. Heart: Regular rate and rhythm. No murmurs, rubs or gallops. Normal capillary refill. Lungs: Some expiratory rhonchi and wheezes noted. No significant crackles. Abdomen: Absent bowel sounds. Mild diffuse tenderness, non-distended. No hepatosplenomegaly. No gaurding. Extremities: No clubbing, cyanosis, or edema. Negative Chepe's Urinary Catheter Management^: Santa: Cath Placed During This Visit: no Data : 01/05/20 08:04 01/05/20 08:04 A&P Assessment and plan (1) S/P right hemicolectomy: -Postop day 4. Patient still struggling with an ileus. NG tube was placed today. Dr. Villasenor plan on starting TPN with PICC line and I agree with this. Continue postoperative care per surgery. Status: Acute Code(s): Z90.49 - Acquired absence of other specified parts of digestive tract (2) CAD (coronary artery disease): Stable. No acute process. Status: Acute Code(s): I25.10 - Atherosclerotic heart disease of [place] coronary artery without angina pectoris (3) COPD (chronic obstructive pulmonary disease): Stable. Continue incentive spirometry and monitor for worsening. We may have some aspiration at this time. Chest x-ray is clear though. We will continue IV antibiotics and have respiratory therapy assess and treat. Status: Acute Code(s): J44.9 - Chronic obstructive pulmonary disease, unspecified Attestations Medical Necessity Statement*: 64-year-old female with an ileus following hemicolectomy requiring continued inpatient IV treatments and monitoring. Coding Level of Care Code Acute Press Operator Meat for [facility] Fwd Diagnoses S/P right hemicolectomy Z90.49 CAD (coronary artery disease) I25.10 COPD (chronic obstructive pulmonary disease) J44.9
--- NOTE | 2020-01-05 13:56 | XR_ITS ---
WS: [id number] Portable AP upright chest, 01/05/2020, 1421 hours. Clinical Data: TPN Comparison: Portable chest, 01/05/2020, 1235 hours. Findings: A right PICC line has been inserted. It ends at the level of the right atrium and needs to be retreated 5 cm. No pneumothorax is seen. There is still subcutaneous emphysema along the right th[address] st and right upper abdominal wall. Remainder of the heart and lungs show no change from today. FINDINGS: The right PICC line has been retreated 5 cm and now ends in the superior vena cava., portab le chest, 1425 hours. XR/XR chest 1V portable [id number] Impression: 1. Satisfactory insertion of a right PICC line. 2. The PICC line and at the level of the right atrium and needs to be retreated 5 cm. Addendum, 01/05/2020 IMPRESSION: Right PICC line now ends in superior vena cava.
[2020-01-05] MEDS: ipratropium 0.5 mg/2.5 mL Neb INHALATION ×2 (15:03→20:12)
--- NOTE | 2020-01-05 16:44 | PM.PN ---
Subjective Subjective: Interval history: Patient was distended and nauseated and had an NG tube placed this morning with drainage of about 1600 cc. She is passing flatus but no BM. Vitals/I&O/Wt Last Vital Signs Temp 99.0 F 01/05/20 15:05 Pulse 107 H 01/05/20 15:06 Resp 18 01/05/20 15:06 BP 109/72 01/05/20 15:05 Pulse Ox 88 L 01/05/20 15:06 01/05/20 01/05/20 01/05/20 06:59 14:59 22:59 Intake Total 1011.667 / 3008.381 0960 / 1050 Output Total 200 / 400 Balance 811.667 / 274.999 9258 / 1050 Physical Exam Narrative: EXAM NARRATIVE: Abdomen: Soft, minimally tender, minimally distended, incision clean dry and intact Urinary Catheter Management^: Santa: Cath Placed During This Visit: yes Urethral Indwelling: No Urinary Catheter Date of Insertion: 01/01/20 Urinary Catheter Time of Insertion: 17:15 Data : 01/05/20 08:04 01/05/20 08:04 A&P Assessment and plan (1) S/P right hemicolectomy: Status post right hemicolectomy and cholecystectomy with postop ileus Start TPN and keep total fluids at 125 cc/h since her creatinine has gone up N.p.o. with ice chips Ambulate with physical therapy NG tube to low intermittent suction Pepcid for GI prophylaxis Lovenox for DVT prophylaxis Continue IV Zosyn since patient had ischemic bowel and it was a contaminated case Status: Acute Code(s): Z90.49 - Acquired absence of other specified parts of digestive tract Attestations Medical Necessity Statement*: Postop ileus status post right hemicolectomy requiring continued inpatient stay Coding Level of Care Code Acute After School Coordinator for [facility] Fwd Diagnoses S/P right hemicolectomy Z90.49
[2020-01-05] MEDS: AA-Dex 5%-20% w/Lytes 1,000 ML with multivitamin inj 5 ML 83 ML IV (18:09)
[2020-01-05] MEDS: LORazepam 2 mg/mL INJ 1 mL 1 MG IVP (20:53)
--- NOTE | 2020-01-05 21:20 | PC.NURSE ---
DAUGHTER CALLED TO LET THIS NURSE KNOW THAT PATIENT BECAME VERY UPSET WHEN SHE WAS VISITING AND WANTED A CUP OF WATER SO DAUGHTER GAVE THE PATIENT HALF A CUP OF WATER AND PATIENT DRANK ALL OF IT. DAUGHTER EXPRESSED THAT THE PATIENT WAS MAKING HER NERVOUS BECAUSE SHE KEPT COMPLAINING OF SEEING THINGS ON HER AUNTS . DAUGHTER ALSO SHARED THAT FOR THE PAST 8/10 YEARS PATIENT HAS BEEN TAKEN HYDROCODONE DAILY WELL [facility]ANAX AND SHE IS WORRIED THAT SHE IS GETTING THEM ELSE WHERE.
[2020-01-05] MEDS: dextrose 5%-ns + KCl 20 20 MEQ/1,000 ML BAG 30 MEQ IV (23:19)
[2020-01-06] VITALS (11 sets, daily range): BP systolic 110–124; BP diastolic 66–82; PULSE 100–124; RESP 17–32; TEMP 36.4–37.4; O2SAT 88–92
[2020-01-06 05:36] LABS: Basophils % 0.2 %; Eosinophils # 0.1 10^3/uL (0.0-0.8); Eosinophils % 0.9 %; Hematocrit 35.6 % (37.0-47.0); Hemoglobin 11.6 g/dL (11.5-15.3); Lymphocytes # 1.9 10^3/uL (0.8-4.8); Lymphocytes % 16.5 %; Mean Corpuscular HGB Conc 32.6 g/dL (30.0-36.0); Mean Corpuscular Hemoglobin 30.9 pg (28.0-34.0); Mean Corpuscular Volume 94.9 fL (81-99); Mean Platelet Volume 10.7 fL (7.4-10.4); Monocytes # 1.5 10^3/uL (0.2-0.9); Monocytes % 13.1 %; Neutrophils # 7.9 10^3/uL (1.8-7.7); Neutrophils % 68.9 %; Nucleated Red Blood Cells % 0 %; Platelet Count 351 10^3/cmm (130-400); Red Blood Count 3.75 10^6/uL (4.1-5.3); Red Cell Distribution Width 12.5 % (12.1-15.1); White Blood Count 11.4 10^3/uL (4.0-10.0)
[2020-01-06 05:45] LABS: Blood Urea Nitrogen 30 mg/dL (8-23); Carbon Dioxide 34 mmol/L (22-29); Chloride 92 mmol/L (98-107); Creatinine Clr Calc Pharmacy 57.0601; Glomerular Filtration Rate 49.8 mL/min (90-130); Glucose 168 mg/dL (65-115); Osmolality Calculated 287 mOsm/kg (285-295); Sodium 138 mmol/L (136-145)
[2020-01-06] MEDS: enoxaparin 40 mg/0.4 mL Syringe SUBCUT (05:50)
[2020-01-06] MEDS: LORazepam 2 mg/mL INJ 1 mL 1 MG IVP (05:50)
--- NOTE | 2020-01-06 06:21 | PC.NURSE ---
END OF SHIFT REPORT PATIENT WAS VERY ANXIOUS DURING THIS SHIFT, PATIENT ASKED FOR MULTIPLE CUPS OF ICE CHIPS BUT THEN WOULD SPILL CUP AND LOSE SOME ICE CHIPS, UNSURE OF EXACT AMOUNT OF ICE CHIPS, PATIENT PULLED AT NG TUBE MULTIPLE TIMES EDUCATION WAS GIVEN, NG TUBE BECAME DISPLACED, REPLACED BY NURSING STAFF, PATIENT WAS ALSO MESSING WITH IV PUMPS AT BEDSIDE, EDUCATION GIVEN, X2 DOSES OF ATIVAN IV GIVEN PRN ORDERED OVER SHIFT, TOTAL OF 4000 OUTPUT FROM NG TUBE THIS SHIFT.
[2020-01-06] MEDS: AA-Dex 5%-20% w/Lytes 1,000 ML with multivitamin inj 5 ML 83 ML IV ×2 (06:35→21:40)
--- NOTE | 2020-01-06 07:08 | XRR_ITS ---
PROCEDURE INFORMATION: Exam: XR Abdomen, 2 Views Exam date and time: 01/06/2020 10:32 AM Age: 64 years old Clinical indication: Abdominal pain; Additional info: Sbo f/u TECHNIQUE: Imaging protocol: XR of the abdomen. Frontal supine and upright views of the abdomen. Views: 2 Views. COMPARISON: CR XR acute abdomen series [id number] 01/05/2020 7:37 AM FINDINGS: Gastrointestinal tract: Marked small bowel dilatation and air-fluid levels, with worsening jejunal dilatation, in a pattern suggesting small bowel obstruction. Prominent stool. Vasculature: Stable subcentimeter pelvic calcifications, presumably vascular in etiology. Bones/joints: Degenerative change and costochondral calcifications. Other findings: Postoperative change again demonstrated. XR/XR abdomen min 2V [id number] IMPRESSION: Marked small bowel dilatation and air-fluid levels, with worsening jejunal dilatation, in a pattern suggesting small bowel obstruction.
--- NOTE | 2020-01-06 07:33 | XRR_ITS ---
PROCEDURE INFORMATION: Exam: XR Chest, 2 Views Exam date and time: 01/06/2020 10:32 AM Age: 64 years old Clinical indication: Condition or disease; Other: Fluid status/pt has sbo; Prior surgery; Surgery type: Cabg TECHNIQUE: Imaging protocol: XR of the chest Views: 2 views. COMPARISON: CR XR chest 1V portable [id number] 01/05/2020 2:19 PM FINDINGS: Tubes, catheters and devices: Right PICC line again demonstrated. Interval removal of feeding tube. Lungs: COPD, interstitial prominence, and asymmetric left basilar airspace/pleural disease. Heart/Mediastinum: Bypass surgery. No cardiomegaly. Bones/joints: Osteopenia, degenerative change, and ligamentous calcification. Right shoulder arthroplasty. Soft tissues: Residual subcutaneous emphysema in the right chest wall. XR/XR chest 2V* [id number] IMPRESSION: 1. COPD, interstitial prominence, and asymmetric left basilar airspace/pleural disease. 2. Additional findings as described above.
[2020-01-06] MEDS: ipratropium 0.5 mg/2.5 mL Neb INHALATION ×2 (08:37→21:12)
[2020-01-06] MEDS: famotidine 20 mg/2 mL INJ IVP ×2 (09:35→21:29)
[2020-01-06] MEDS: piperacillin-tazobactam 3.375 GM in sodium chloride 0.9% (plus) 50 ML IV ×2 (09:36→17:44)
[2020-01-06] MEDS: fluticasone nasal spray 16gm Btl 2 SPRAY NASAL (10:37)
[2020-01-06] MEDS: nicotine 21 mg Patch 1 PATCH TRANSDERMA (10:38)
--- NOTE | 2020-01-06 14:11 | PM.PN ---
Subjective Subjective: Interval history: She seems to be having some more confusion. This probably is a consequence of her not getting her Parnate. She has no chest pain or shortness of breath. Her breathing seems to better from yesterday. She has pulled her NG tube out a couple of times. She is starting to pass some gas she thinks. Having some bowel sounds. Abdominal pain seems much better. No fevers or chills. No chest pain or shortness of breath. Medications: Reviewed: Yes Vitals/I&O/Wt Last Vital Signs Temp 98.8 F 01/06/20 10:54 Pulse 106 H 01/06/20 10:54 Resp 19 H 01/06/20 10:54 BP 114/73 01/06/20 10:54 Pulse Ox 91 01/06/20 10:54 01/05/20 01/06/20 01/06/20 22:59 06:59 14:59 Intake Total 1175 / 3840 1615 / 3840 576.717 / 576.717 Output Total 3900 / 4900 1000 / 4900 Balance -2725 / -1060 615 / -1060 576.717 / 576.717 Physical Exam Narrative: EXAM NARRATIVE: General: No acute distress, Alert. Well nourished. Heart: Regular rate and rhythm. No murmurs, rubs or gallops. Normal capillary refill. Lungs: Some expiratory rhonchi and wheezes noted. No significant crackles. Abdomen: Absent bowel sounds. Mild diffuse tenderness, non-distended. No hepatosplenomegaly. No gaurding. Extremities: No clubbing, cyanosis, or edema. Negative Chepe's Urinary Catheter Management^: Santa: Cath Placed During This Visit: yes Urethral Indwelling: No Urinary Catheter Date of Insertion: 01/01/20 Urinary Catheter Time of Insertion: 17:15 Data : 01/06/20 04:38 01/06/20 04:38 Micro: Microbiology 01/01/20 10:57 Blood Culture - Final Blood NO GROWTH AFTER 5 DAYS 01/01/20 10:52 Blood Culture - Final Blood NO GROWTH AFTER 5 DAYS A&P Assessment and plan (1) S/P right hemicolectomy: -Postop day 5. Patient still struggling with an ileus. . Continue with TPN. Follow-up on x-ray as far as replacing the NG tube.. Status: Acute Code(s): Z90.49 - Acquired absence of other specified parts of digestive tract (2) CAD (coronary artery disease): Stable. No acute process. Status: Acute Code(s): I25.10 - Atherosclerotic heart disease of [place] coronary artery without angina pectoris (3) COPD (chronic obstructive pulmonary disease): Stable. Continue incentive spirometry and monitor for worsening. Continue with respiratory therapy. Status: Acute Code(s): J44.9 - Chronic obstructive pulmonary disease, unspecified Attestations Medical Necessity Statement*: [age]-year-old female with cholecystitis and status post hemicolectomy requiring continued inpatient monitoring and treatment. Coding Level of Care Code Acute Water Resources Project Manager for [facility] Fwd Diagnoses S/P right hemicolectomy Z90.49 CAD (coronary artery disease) I25.10 COPD (chronic obstructive pulmonary disease) J44.9
--- NOTE | 2020-01-06 14:32 | PC.SOCIAL ---
IMM updated Pg 2 of IMM was updated with patient and a copy was provided. She verbalized understanding and had no questions. Initialed, dated, and timed copy in chart.
--- NOTE | 2020-01-06 14:49 | PM.PN ---
Subjective Subjective: Interval history: Patient had 4 L of NG output last night but this morning she pulled out her NG tube. Patient denies any nausea, vomiting, and states that she had a small bowel movement. No fevers or chills. Medications: Reviewed: Yes Vitals/I&O/Wt Last Vital Signs Temp 98.8 F 01/06/20 10:54 Pulse 106 H 01/06/20 10:54 Resp 19 H 01/06/20 10:54 BP 114/73 01/06/20 10:54 Pulse Ox 91 01/06/20 10:54 01/05/20 01/06/20 01/06/20 22:59 06:59 14:59 Intake Total 1175 / 3840 1615 / 3840 576.717 / 576.717 Output Total 3900 / 4900 1000 / 4900 Balance -2725 / -1060 615 / -1060 576.717 / 576.717 Physical Exam Narrative: EXAM NARRATIVE: Abdomen: Soft, nondistended, minimally tender, incision clean dry and intact Urinary Catheter Management^: Santa: Cath Placed During This Visit: yes Urethral Indwelling: No Urinary Catheter Date of Insertion: 01/01/20 Urinary Catheter Time of Insertion: 17:15 Data : 01/06/20 04:38 01/06/20 04:38 Micro: Microbiology 01/01/20 10:57 Blood Culture - Final Blood NO GROWTH AFTER 5 DAYS 01/01/20 10:52 Blood Culture - Final Blood NO GROWTH AFTER 5 DAYS A&P Assessment and plan (1) S/P right hemicolectomy: Advance to full liquid diet Fleets enema today Bowel regimen with Colace and lactulose Continue TPN Pepcid for GI prophylaxis Lovenox for DVT prophylaxis Status: Acute Code(s): Z90.49 - Acquired absence of other specified parts of digestive tract Attestations Medical Necessity Statement*: Patient will need 1 more night of inpatient stay to ensure resolution of ileus Coding Level of Care Code Acute Journeyman Carpenter for [facility] Fwd Diagnoses S/P right hemicolectomy Z90.49
[2020-01-06] MEDS: baclofen 10 mg Tablet PO ×2 (15:00→23:15)
[2020-01-06] MEDS: Fleet Enema 133 mL Enema PR (16:05)
[2020-01-06] MEDS: lactulose oral liq 20 gm/30 mL UDC 10 GM PO (16:45)
[2020-01-06] MEDS: docusate sodium 100 mg Capsule PO (17:19)
[2020-01-06] MEDS: metoprolol tartrate 25 mg Tablet PO (17:19)
[2020-01-06] MEDS: sennosides 8.6 mg Tablet 17.2 MG PO (21:30)
[2020-01-06] MEDS: HYDROcodone-acetaminophen 5-325 mg Tablet 1 TAB PO (23:15)
[2020-01-07] VITALS (18 sets, daily range): BP systolic 108–128; BP diastolic 67–87; PULSE 89–129; RESP 17–28; TEMP 36.4–39.3; O2SAT 87–93
[2020-01-07] MEDS: piperacillin-tazobactam 3.375 GM in sodium chloride 0.9% (plus) 50 ML IV ×3 (02:00→17:42)
[2020-01-07] MEDS: dextrose 5%-ns + KCl 20 20 MEQ/1,000 ML BAG 30 MEQ IV (02:01)
[2020-01-07] MEDS: lactulose oral liq 20 gm/30 mL UDC 10 GM PO (02:01)
[2020-01-07 04:32] LABS: Basophils % 0.2 %; Eosinophils # 0.2 10^3/uL (0.0-0.8); Eosinophils % 0.9 %; Hemoglobin 11.4 g/dL (11.5-15.3); Lymphocytes # 1.9 10^3/uL (0.8-4.8); Mean Corpuscular HGB Conc 32.6 g/dL (30.0-36.0); Mean Corpuscular Volume 92.1 fL (81-99); Mean Platelet Volume 11.1 fL (7.4-10.4); Monocytes # 1.8 10^3/uL (0.2-0.9); Monocytes % 11.4 %; Neutrophils # 11.9 10^3/uL (1.8-7.7); Neutrophils % 74.7 %; Nucleated Red Blood Cells % 0 %; Platelet Count 367 10^3/cmm (130-400); Red Cell Distribution Width 12.4 % (12.1-15.1); White Blood Count 15.9 10^3/uL (4.0-10.0)
[2020-01-07 04:46] LABS: Anion Gap 16.8 (5-19); Blood Urea Nitrogen 31 mg/dL (8-23); Calcium 9.6 mg/dL (8.5-10.5); Carbon Dioxide 33 mmol/L (22-29); Chloride 89 mmol/L (98-107); Glucose 177 mg/dL (65-115); Osmolality Calculated 284 mOsm/kg (285-295); Sodium 136 mmol/L (136-145)
[2020-01-07] MEDS: LORazepam 2 mg/mL INJ 1 mL 1 MG IVP (05:00)
[2020-01-07] MEDS: enoxaparin 40 mg/0.4 mL Syringe SUBCUT (05:00)
[2020-01-07 05:10] LABS: Potassium 2.8 mmol/L (3.5-5.1)
[2020-01-07] MEDS: lidocaine 1% INJ 20 mL 5 ML INJECTION (06:37)
[2020-01-07] MEDS: potassium chloride premix 40 MEQ/100 ML PREMIX 25 MEQ IV ×3 (06:37→10:49)
--- NOTE | 2020-01-07 06:59 | XR_ITS ---
WS: [id number] KUB, 01/07/2020 Clinical Data: ileus Comparison: KUB, 01/06/2020 Findings: Small bowel remains dilated consistent with small bowel obstruction. There is subcutaneous emphysema along the right lateral abdominal wall. There are clips in the upper abdomen from surgery. There are also simone in the left lower quadrant from surgery. XR/XR KUB portable [id number] Impression: Dilated small bowel most consistent with unchanged small bowel obstruction.
[2020-01-07] MEDS: baclofen 10 mg Tablet PO (07:44)
[2020-01-07] MEDS: famotidine 20 mg/2 mL INJ IVP (07:45)
[2020-01-07] MEDS: ipratropium 0.5 mg/2.5 mL Neb INHALATION ×3 (08:06→20:20)
[2020-01-07] MEDS: cholecalciferol (vitamin D3) 1,000 unit Tablet 2000 UNIT PO (09:36)
[2020-01-07] MEDS: aspirin 81 mg Chew Tablet PO (09:36)
[2020-01-07] MEDS: multivitamin therapeutic Tablet 1 TAB PO (09:36)
[2020-01-07] MEDS: ascorbic acid 500 mg Tablet PO (09:38)
[2020-01-07] MEDS: docusate sodium 100 mg Capsule PO ×2 (09:38→17:43)
[2020-01-07] MEDS: HYDROcodone-acetaminophen 5-325 mg Tablet 1 TAB PO ×2 (09:38→17:43)
[2020-01-07] MEDS: metoprolol tartrate 25 mg Tablet PO ×2 (09:39→17:43)
[2020-01-07] MEDS: fluticasone nasal spray 16gm Btl 2 SPRAY NASAL (09:40)
[2020-01-07] MEDS: nicotine 21 mg Patch 1 PATCH TRANSDERMA (09:42)
[2020-01-07] MEDS: AA-Dex 5%-20% w/Lytes 1,000 ML with multivitamin inj 5 ML 83 ML IV (10:47)
--- NOTE | 2020-01-07 13:46 | P.PN_ITS ---
Subjective Subjective: Interval history: Patient has been confused and has a one-on-one sitter. Passing flatus, no BM. Patient had 2 episodes of emesis today. Complains of some abdominal distention. Vitals/I&O/Wt Last Vital Signs Temp 97.8 F 01/07/20 11:29 Pulse 112 H 01/07/20 11:29 Resp 18 01/07/20 11:29 BP 122/87 01/07/20 11:29 Pulse Ox 93 01/07/20 11:29 01/06/20 01/07/20 01/07/20 22:59 06:59 14:59 Intake Total 2679.630 / 3835.347 530 / 3835.347 1105 / 1105 Output Total 200 / 200 Balance 2679.630 / 3835.347 530 / 3835.347 905 / 905 Physical Exam Narrative: EXAM NARRATIVE: Abdomen: Soft, distended, minimally tender, in cision clean dry and intact Urinary Catheter Management^: Santa: Cath Placed During This Visit: yes Urethral Indwelling: No Urinary Catheter Date of Insertion: 01/01/20 Urinary Catheter Time of Insertion: 17:15 Data : 01/07/20 03:26 01/07/20 03:26 Micro: Microbiology 01/01/20 10:57 Blood Culture - Final Blood NO GROWTH AFTER 5 DAYS 01/01/20 10:52 Blood Culture - Final Blood NO GROWTH AFTER 5 DAYS A&P Assessment and plan (1) S/P right hemicolectomy: Abdominal x-ray shows dilated small bowel loops with stool in the colon NG tube to low intermittent suction Milk of molasses enema today Bowel regimen with Colace and lactulose Continue TPN Pepcid for GI prophylaxis Lovenox for DVT prophylaxis Status: Acute Code(s): Z90.49 - Acquired absence of other specified parts of digestive tract Attestations Medical Necessity Statement*: Status post colectomy with persistent bowel obstruction Coding Level of Care Code Acute Offset Printing Operator for [facility] Fwd Diagnoses S/P right hemicolectomy Z90.49
--- NOTE | 2020-01-07 14:13 | XR_ITS ---
WS: [id number] Portable AP upright chest, 01/07/2020 Clinical Data: ng placement Comparison: PA and lateral chest, 01/06/2020 Findings: No nodules or masses are seen. There is elevation of the left diaphragm with a small left effusion. The heart is normal. The pulmonary vascularity is not increased. No pneumonia or pneumothor ax is seen. The nasogastric tube appears to and within the stomach. The right PICC line is unremarkab le. Midline sternotomy sutures are noted. The right total shoulder prosthesis has not changed. XR/XR chest 1V portable [id number] Impression: Satisfactory placement of nasogastric tube.
--- NOTE | 2020-01-07 14:38 | PM.PN ---
Subjective Subjective: Interval history: Patient still having quite a bit of difficulty. She claims she is passing gas and had some small bowel movements but most this is not been witnessed. She is also having quite a bit of nausea. Apparently threw up some. Abdomen is much more distended. NG tube was placed after the KUB showed continued small bowel obstruction today. Had quite a bit out. No fevers or chills. No chest pain or increased shortness of breath. She is still having quite a bit of confusion. She is not really been able to keep much of her Parnate down. Sounds like she has been asking for pain medicines more than what is allowed. Medications: Reviewed: Yes Vitals/I&O/Wt Last Vital Signs Temp 97.8 F 01/07/20 11:29 Pulse 112 H 01/07/20 11:29 Resp 18 01/07/20 11:29 BP 122/87 01/07/20 11:29 Pulse Ox 93 01/07/20 11:29 01/06/20 01/07/20 01/07/20 22:59 06:59 14:59 Intake Total 2679.630 / 3835.347 530 / 3835.347 1105 / 1105 Output Total 200 / 200 Balance 2679.630 / 3835.347 530 / 3835.347 905 / 905 Physical Exam Narrative: EXAM NARRATIVE: General: No acute distress, Alert. Well nourished. Heart: Regular rate and rhythm. No murmurs, rubs or gallops. Normal capillary refill. Lungs: Some expiratory rhonchi and wheezes noted. No significant crackles. Abdomen: Absent bowel sounds. Mild diffuse tenderness, distended. No hepatosplenomegaly. No gaurding. Extremities: No clubbing, cyanosis, or edema. Negative Chepe's Urinary Catheter Management^: Santa: Cath Placed During This Visit: yes Urethral Indwelling: No Urinary Catheter Date of Insertion: 01/01/20 Urinary Catheter Time of Insertion: 17:15 Data : 01/07/20 03:26 01/07/20 03:26 Micro: Microbiology 01/01/20 10:57 Blood Culture - Final Blood NO GROWTH AFTER 5 DAYS 01/01/20 10:52 Blood Culture - Final Blood NO GROWTH AFTER 5 DAYS A&P Assessment and plan (1) S/P right hemicolectomy: -Postop day 6. Patient still struggling with an ileus versus obstruction.. . Continue with TPN. If no improvement by tomorrow probably need to repeat the CT scan and look at other interventions. Discussed with Dr. Smith. Status: Acute Code(s): Z90.49 - Acquired absence of other specified parts of digestive tract (2) CAD (coronary artery disease): Stable. No acute process. Status: Acute Code(s): I25.10 - Atherosclerotic heart disease of [place] coronary artery without angina pectoris (3) COPD (chronic obstructive pulmonary disease): Stable. Continue incentive spirometry and monitor for worsening. Continue with respiratory therapy. Status: Acute Code(s): J44.9 - Chronic obstructive pulmonary disease, unspecified (4) Major depressive disorder, recurrent, in full remission: -Patient has been unable to take her Parnate. I think this is a resulting in some encephalopathy and confusion. She has had this happen to her in the past. I have a call out to her psychiatrist for recommendations on alternative treatments to this. Status: Acute Code(s): F33.42 - Major depressive disorder, recurrent, in full remission Attestations Medical Necessity Statement*: Patient is a 64-year-old female with small bowel obstruction versus ileus status post hemicolectomy requiring continued inpatient hospitalization and monitoring. 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
--- NOTE | 2020-01-07 14:47 | PC.OT ---
OT note: Pt with 1:1 sitter, confused. Attempted in AM and pt refused and stated I don't really need it. Tried in PM and pt refused and sitter reported pt just had NG tube put back in. Will attempt again tomorrow as able.
--- NOTE | 2020-01-07 17:07 | XRR_ITS ---
PROCEDURE INFORMATION: Exam: XR Chest, 1 View Exam date and time: 01/07/2020 7:23 PM Age: 64 years old Clinical indication: Device placement; Ng tube; Additional info: Ng placement TECHNIQUE: Imaging protocol: XR of the chest Views: 1 view. COMPARISON: CR XR chest 1V portable [id number] 01/07/2020 2:18 PM FINDINGS: Lungs: Unremarkable. No consolidation. Pleural space: Elevated left hemidiaphragm is seen. No pleural effusion. No pneumothorax. Heart/Mediastinum: Unremarkable. No cardiomegaly. Bones/joints: Metallic sternotomy wires are in place. Metallic right shoulder arthroplasty is present. Right side PICC line is in the SVC NG tube extends into the stomach XR/XR chest 1V portable [id number] IMPRESSION: No acute findings. Elevated left hemidiaphragm Right side PICC line in good position. NG tube is in the stomach. Sternotomy wires are in place. Right shoulder arthroplasty are
--- NOTE | 2020-01-07 19:54 | PC.NURSE ---
Throughout shift I talked to many pateint family members at different times: children/grandchildren and updated them of her condition and the plan of care for the time being.
[2020-01-07 20:38] LABS: Glucose Urine UA Norm (Normal); Protein Urine 1+ (Negative); Urine Appearance Hazy (CLEAR); Urine Color Dark Yellow (Yellow); pH Urine 5 (5-7)
[2020-01-07 20:39] LABS: Add Urine Microscopic? YES; Bilirubin Urine 1+ (NEGATIVE); Blood Urine Neg (Negative); Ketones Urine Negative (Negative); Leukocyte Esterase Urine Negative (Negative); Nitrate Urine Negative (Negative); Urobilinogen Urine Norm (Negative)
[2020-01-07 20:50] LABS: Add Urine Culture? No; Bacteria Urine 1+; RBC Urine 0-4 /hpf (0-2)
[2020-01-07 21:08] LABS: Glucose Point of Care 140 mg/dL (70-110)
--- NOTE | 2020-01-07 21:17 | ECG_ITS ---
Measurements Intervals [place] Rate: 114 P: 33 [place]: 144 QRS: 9 QRSD: 89 T: 81 QT: 332 QTc: 457 SINUS TACHYCARDIA POSSIBLE LEFT ATRIAL ENLARGEMENT [-0.1mV P WAVE IN V1/V2] PROBABLE INFERIOR MYOCARDIAL INFARCTION [35 ms Q WAVE IN II/aVF], OF IN INDETERMINATE AGE WITH POSTERIOR EXTENSION [PROMINENT R WA Compared to ECG 01/01/2020 11:02:40 Sinus rhythm no longer present Myocardial infarct finding still present Electronically Signed On 01-08-2020 22:15:15 RIBBON SWEATBAND OPERATOR by Mirlande Nowak M.D. [id number]
[2020-01-07 21:34] LABS: Basophils # 0.1 10^3/uL (0.0-0.1); Basophils % 0.5 %; Eosinophils % 0.1 %; Hematocrit 35.4 % (37.0-47.0); Hemoglobin 11.7 g/dL (11.5-15.3); Lymphocytes # 1.9 10^3/uL (0.8-4.8); Lymphocytes % 10.1 %; Mean Corpuscular HGB Conc 33.1 g/dL (30.0-36.0); Mean Corpuscular Hemoglobin 29.9 pg (28.0-34.0); Mean Corpuscular Volume 90.5 fL (81-99); Mean Platelet Volume 10.9 fL (7.4-10.4); Monocytes # 0.9 10^3/uL (0.2-0.9); Monocytes % 4.8 %; Neutrophils # 15.8 10^3/uL (1.8-7.7); Neutrophils % 83.8 %; Nucleated Red Blood Cells % 0 %; Platelet Count 393 10^3/cmm (130-400); Red Blood Count 3.91 10^6/uL (4.1-5.3); Red Cell Distribution Width 12.6 % (12.1-15.1); White Blood Count 18.8 10^3/uL (4.0-10.0)
[2020-01-07 21:45] LABS: ABG PCO2 37.6 mmHg (35-45); Alveolar-Arterial Oxygen Gradi 47.5 mmHg (5-10); Arterial Blood Gas Hematocrit 37.9 % (37-47); Blood Gas Allen Test Pos; Blood Gas Sample Site Radial, left; Blood Gas Sample Type Arterial; HCO3 ABG 34.9 mmol/L (22-26); HGB O2 Sat 89.7 % (95-100); Ionized Calcium Level - ABG 1.1 mmol/L (1.1-1.4); Methemoglobin 0.8 % (0.4-1.5); Oxygen Device NC; Oxygen Saturation ABG 91.3; PO2 ABG 52.7 mmHg (80.0-100.0); Potassium Level - ABG 3.4 mmol/L (3.5-5.0); Total Hemoglobin 12.4 g/dL (12-16)
[2020-01-07 21:46] LABS: ABG PH Result 7.58 (7.35-7.45)
[2020-01-07 21:49] LABS: Gastricult Occult Blood Positive (Negative)
[2020-01-07 21:50] LABS: Lactate (Lactic Acid level) 1.4 mmol/L (0.5-2.2); Troponin T (5th) Once 69 ng/mL (0-10)
[2020-01-07 21:51] LABS: Alanine Aminotransferase 41 U/L (0-33); Albumin Level 2.8 g/dL (3.5-5.2); Alkaline Phosphatase 108 IU/L (35-105); Anion Gap 16.5 (5-19); Aspartate Amino Transferase 29 U/L (0-32); Blood Urea Nitrogen 61 mg/dL (8-23); Calcium 9.2 mg/dL (8.5-10.5); Carbon Dioxide 31 mmol/L (22-29); Chloride 90 mmol/L (98-107); Globulin 3.2 g/dL (1.3-4.6); Glomerular Filtration Rate 32.3 mL/min (90-130); Glucose 162 mg/dL (65-115); Potassium 3.5 mmol/L (3.5-5.1); Sodium 134 mmol/L (136-145); Total Bilirubin 0.6 mg/dL (0.15-1.2)
--- NOTE | 2020-01-07 22:20 | PC.NURSE ---
Received pt by bed from med-surg. Pt is lethargic, does not respond to sternal rub. PERRL. On 5L NC with O2 sat of 92%, diminished breath sounds to the right. NG tube with brown/light red drainage. Temp on arrival to unit 102.8 axillary, Dr. walsh at bedside and notified. Received orders for stat blood cultures. Abd is soft, non-distended, hypoactive bowel sounds to left quadrants and difficult to assess bowel sounds to right quadrants due to artifact auscultated with breathing but did not auscultate bowel sounds. Dr. walsh notified of assessment and remains at bedside for further orders.
--- NOTE | 2020-01-07 22:20 | PC.NURSE ---
Transfer Pt. transferred to ICU at this time via bed with all personal belongings. Pt. family already in ICU waiting room. Report called Silvia Sims RN by Yolande John LPN.
[2020-01-07] MEDS: acetaminophen 650 mg Supp PR (22:52)
[2020-01-07] MEDS: sodium chloride 0.9% 1,000 ML 150 ML IV (23:05)
--- NOTE | 2020-01-07 23:06 | CTR_ITS ---
PROCEDURE INFORMATION: Exam: CT Head Without Contrast Exam date and time: 01/07/2020 11:12 PM Age: 64 years old Clinical indication: Altered mental status/memory loss and fever; Confusion or disorientation; Additional info: Unresponsive TECHNIQUE: Imaging protocol: Computed tomography of the head without contrast. Total DLP: 911.13 mGy-cm Radiation optimization: All CT scans at this facility use at least one of these dose optimization techniques: automated exposure control; mA and/or kV adjustment per patient size (includes targeted exams where dose is matched to clinical indication); or iterative reconstruction. COMPARISON: No relevant prior studies available. FINDINGS: Limitations: Study is somewhat limited by patient motion. Brain: Normal. No hemorrhage. Unremarkable white matter. No mass effect. Midline shift: There is no shift of midline structures. Ventricles: Normal. No ventriculomegaly. Bones/joints: Unremarkable. No acute fracture. Sinuses: Visualized sinuses are unremarkable. No fluid levels. Mastoid air cells: Visualized mastoid air cells are well aerated. Soft tissues: Unremarkable. CT/CT head wo con* [id number] IMPRESSION: No acute findings Radiation Dose CTDIVOL = (mGy): DLP = 911.13 (mGy-cm)
--- NOTE | 2020-01-07 23:06 | CTR_ITS ---
PROCEDURE INFORMATION: Exam: CT Chest Without Contrast Exam date and time: 01/07/2020 11:12 PM Age: 64 years old Clinical indication: Fever; Prior surgery; Surgery date: 3-7 days post-operative; Surgery type: Cholecystectomy, necrotic bowel. ; Additional info: Fever unresponsive TECHNIQUE: Imaging protocol: Computed tomography of the chest without contrast. Total DLP: 2400.07 mGy-cm Radiation optimization: All CT scans at this facility use at least one of these dose optimization techniques: automated exposure control; mA and/or kV adjustment per patient size (includes targeted exams where dose is matched to clinical indication); or iterative reconstruction. COMPARISON: CR (CHEST, ) 01/07/2020 7:31 PM FINDINGS: Limitations: Study is somewhat limited by patient motion. Study somewhat limited due to streak artifact created by the patient being scanned with the arms at the sides. Tubes, catheters and devices: There is nasogastric tube in place. Lungs: There is patchy infiltrate and some partial atelectasis and consolidation in the left lower lobe consistent with pneumonia or possibly aspiration. There is some minimal patchy peribronchial infiltrate in the posterior right lung base and in the lingula which could represent some bronchopneumonia or aspiration. Pleural space: Unremarkable. No pneumothorax. No pleural effusion. Heart: Sternotomy wires and mediastinal surgical clips are present, consistent with previous coronary arterial bypass grafting. Mediastinum: A large hiatal hernia is present. Aorta: There is moderate ectasia of the ascending thoracic aorta which measures 4 cm in diameter. Lymph nodes: Unremarkable. No enlarged lymph nodes. Bones/joints: Unremarkable. No acute fracture. Soft tissues: There is subcutaneous emphysema in the right chest wall in the subcutaneous soft tissues in the anterior upper abdomen. This is presumably related to the patient's recent surgery. IMPRESSION: 1. Basilar pneumonia, mostly in the left lower lobe. 2. Mild subcutaneous emphysema of uncertain etiology, likely related to the recent surgery. PROCEDURE INFORMATION: Exam: CT Abdomen And Pelvis Without Contrast Exam date and time: 01/07/2020 11:12 PM Age: 64 years old Clinical indication: Fever; Prior surgery; Surgery date: 3-7 days post-operative; Surgery type: Cholecystectomy, necrotic bowel. ; Additional info: Fever unresponsive TECHNIQUE: Imaging protocol: Computed tomography of the abdomen and pelvis without contrast. Total DLP: 2400.07 mGy-cm Radiation optimization: All CT scans at this facility use at least one of these dose optimization techniques: automated exposure control; mA and/or kV adjustment per patient size (includes targeted exams where dose is matched to clinical indication); or iterative reconstruction. COMPARISON: CR (CHEST, ) 01/07/2020 7:31 PM FINDINGS: Limitations: The absence of intravenous contrast lessens the sensitivity of this study for solid organ abnormalities. Liver: There is no focal abnormality within the liver. Gallbladder and bile ducts: There has been a cholecystectomy. Pancreas: The pancreas is normal. Spleen: The spleen is normal. Adrenals: The adrenal glands are normal. Kidneys and ureters: The kidneys are normal. There is no evidence of hydronephrosis. Stomach and bowel: There are findings of recent partial colonic resection. There are abnormally thickened and distended small bowel loops within the mid abdomen which is a change from the previous examination. The distal colon itself is nondilated. Findings likely represent postoperative ileus and nonspecific enteritis. Differential considerations include ischemic enteritis of the small bowel. Correlation with clinical findings is suggested. Appendix: No evidence of appendicitis. Intraperitoneal space: There is no evidence of free intraperitoneal fluid. Vasculature: The aorta demonstrates severe atherosclerotic calcification and ectasia. There is mild aneurysmal dilatation of the infrarenal abdominal aortic aneurysm with maximum diameter of 3 cm. Lymph nodes: Unremarkable. No enlarged lymph nodes. Bladder: Unremarkable as visualized. Reproductive: There has been a hysterectomy. Bones/joints: Unremarkable. No acute fracture. Soft tissues: There is some abnormal air in the soft tissues of the flank on both sides which could be related to the recent surgery, or more likely related to injection sites.. CT/CT chest abd pel wo con IMPRESSION: 1. Thickened a distended small bowel loops representing nonspecific enteritis. Ischemic enteritis is not excluded. Correlation with clinical findings is suggested. 2. Recent postsurgical changes of cholecystectomy and partial bowel resection. 3. No abscess is identified. Radiation Dose CTDIVOL = (mGy): DLP = 2400.07~2400.07 (mGy-cm)
--- NOTE | 2020-01-07 23:10 | PC.NURSE ---
Pt is awake and verbally responsive but not following commands. Observed patients picking items out of her cupped hand and placing them in families hands at bedside. Looking around the room and pointing, seeing things in room that are not there.
[2020-01-07 23:22] LABS: Troponin(5th) Baseline 61 ng/mL (0-10)
--- NOTE | 2020-01-07 23:23 | P.PN_ITS ---
Subjective Subjective: Interval history: Patient had a sudden change in her status tonight. At approximately 9 PM she had an acute change in her mental state. She became unresponsive. She was slightly more hypoxic. Low-grade temperature of 99. More tachycardic. Blood pressure is okay though. She would open her eyes some but then become unresponsive again did not really follow any commands. I arrived within 20 minutes of this occurrence. At that time her vitals were still stable. She had her eyes open when I came in but then closed him shortly thereafter. Initial laboratory evaluation revealed a white blood cell count that had increased to 18.8. Her BUN and creatinine had increased to 61 and 1.6. Troponin was mildly elevated. EKG had some questionable changes. Our initial working differential included possible non-ST elevation ME. Patient was transferred to the ICU. Upon arrival she was found to have a temperature of 102.8 axillary. She was becoming a little more responsive. She did not appear to have any abdominal tenderness while upstairs but about an hour later she was noted to have more tenderness in her abdomen. Still no guarding. When she had moments of being partially lucid she denied any chest pain or increasing shortness of breath. She still not following commands but will move both of her legs and occasionally her arms. No obvious facial droops. Although CVAs in the differential I think this seems less likely as well. She had vomited a couple times this morning which raises the concern for aspiration. She has been on Lovenox but PEs are still in the differential. With the elevated creatinine we have waited on doing a CTA. With the onset of the fever it is making an infectious source seem a bit more likely. That along with the elevated white blood cell count. I discussed her case with Dr. Smith and we are going to proceed with noncontrast CT scan initially of the head chest and abdomen. If this is unrevealing we will proceed with oral contrast through the NG tube and let that passed through for a couple of hours and repeat the CT of the abdomen to better elucidate the obstruction. We will go ahead and add Flagyl to her regimen and adjust antibiotics further based off what we find with the CT scan. We will go ahead and obtain serial troponins. Family is at bedside. Discussed care with them. Vitals/I&O/Wt Last Vital Signs Temp 102.8 F H 01/07/20 22:51 Pulse 117 H 01/07/20 21:23 Resp 28 H 01/07/20 21:23 BP 109/71 01/07/20 21:23 Pulse Ox 90 01/07/20 21:23 01/07/20 01/07/20 01/08/20 14:59 22:59 06:59 Intake Total 1155 / 1787 632 / 1787 Output Total 200 / 5500 5300 / 5500 Balance 955 / -3713 -5300 / -3713 632 / -3713 Physical Exam Urinary Catheter Management^: Santa: Cath Placed During This Visit: yes Urethral Indwelling: No Urinary Catheter Date of Insertion: 01/07/20 Urinary Catheter Time of Insertion: 22:49 Data : 01/07/20 21:25 01/07/20 21:25 Micro: Microbiology 01/07/20 23:00 Blood Culture - Preliminary Blood SPECIMEN COLLECTED 01/07/20 22:50 Blood Culture - Preliminary Blood SPECIMEN COLLECTED Attestations Medical Necessity Statement*: Patient is 64-year-old female with colon obstruction requiring continued inpatient treatment. Coding Level of Care Code Acute Clinical Pharmacy Coordinator for Lillian Yang
[2020-01-08] VITALS (26 sets, daily range): BP systolic 83–117; BP diastolic 52–73; PULSE 84–110; RESP 16–31; TEMP 36.7–38.9; O2SAT 83–97
--- NOTE | 2020-01-08 00:04 | ECG_ITS ---
Measurements Intervals [place] Rate: 108 P: 54 NM: 153 QRS: 16 QRSD: 94 T: 79 QT: 357 QTc: 479 SINUS TACHYCARDIA POSSIBLE LEFT ATRIAL ENLARGEMENT [-0.1mV P WAVE IN V1/V2] INFERIOR MYOCARDIAL INFARCTION [40+ ms Q WAVE AND/OR ST/T ABNORMALITY IN II/aVF], PROBABLY OLD WITH POSTERIOR EXTENSION [PROMIN WARNING: DATA QUALITY MAY AFFECT INTERPRETATION Compared to ECG 01/01/2020 11:02:40 Sinus rhythm no longer present Myocardial infarct finding still present Electronically Signed On 01-08-2020 22:18:40 BOOK REPAIRER by Mirlande Nowak M.D. [id number]
[2020-01-08] MEDS: metroNIDAZOLE IV 500 MG/100 ML PREMIX 100 MG IV ×5 (00:16→22:35)
[2020-01-08 01:15] LABS: Troponin 5 2HR 56.59 ng/mL (0-10)
[2020-01-08 01:27] LABS: Troponin 5 2HR Delta -4.41 ABS# (0-10)
--- NOTE | 2020-01-08 01:34 | PC.PHAR ---
Vancomycin is dose at 1500mg IVPB every 24 hours to produce a predicted trough level of 16.14 (population based pharmacokinetic analysis). A trough level has been ordered from the lab to be obtained before the third dose to confirm and adjust if needed.
[2020-01-08] MEDS: famotidine 20 mg/2 mL INJ IVP ×3 (01:35→23:37)
--- NOTE | 2020-01-08 01:46 | PC.NURSE ---
Pt awake and confused. Oriented to person. Attempting to get out of bed, pulling at NG tube, gowns. Stating i have to go home . Moderately fidgety and restless. 1:1 sitter remains at bedside.
[2020-01-08] MEDS: piperacillin-tazobactam 3.375 GM in sodium chloride 0.9% (plus) 50 ML IV ×3 (03:58→18:50)
[2020-01-08] MEDS: lactulose oral liq 20 gm/30 mL UDC 10 GM PO ×2 (04:00→15:57)
--- NOTE | 2020-01-08 04:04 | ECG_ITS ---
Measurements Intervals [place] Rate: 109 P: 62 AL: 154 QRS: 22 QRSD: 93 T: 84 QT: 347 QTc: 468 SINUS TACHYCARDIA POSSIBLE LEFT ATRIAL ENLARGEMENT [-0.1mV P WAVE IN V1/V2] INFERIOR MYOCARDIAL INFARCTION [40+ ms Q WAVE AND/OR ST/T ABNORMALITY IN II/aVF], OF INDETERMINATE AGE WITH POSTERIOR EXTENSION WARNING: DATA QUALITY MAY AFFECT INTERPRETATION Compared to ECG 01/01/2020 11:02:40 Sinus rhythm no longer present Myocardial infarct finding still present Electronically Signed On 01-08-2020 22:18:21 THEORETICAL PHYSICS TEACHER by Mirlande Nowak M.D. [id number]
[2020-01-08 05:17] LABS: Basophils # 0.1 10^3/uL (0.0-0.1); Basophils % 0.4 %; Eosinophils % 0.1 %; Hematocrit 33.5 % (37.0-47.0); Hemoglobin 10.8 g/dL (11.5-15.3); Lymphocytes # 2.5 10^3/uL (0.8-4.8); Lymphocytes % 9.2 %; Mean Corpuscular HGB Conc 32.2 g/dL (30.0-36.0); Mean Corpuscular Hemoglobin 29.7 pg (28.0-34.0); Mean Platelet Volume 11.2 fL (7.4-10.4); Monocytes # 1.4 10^3/uL (0.2-0.9); Monocytes % 5.3 %; Neutrophils # 22.8 10^3/uL (1.8-7.7); Nucleated Red Blood Cells % 0 %; Platelet Count 383 10^3/cmm (130-400); Red Blood Count 3.64 10^6/uL (4.1-5.3); Red Cell Distribution Width 12.7 % (12.1-15.1); White Blood Count 27.2 10^3/uL (4.0-10.0)
[2020-01-08 05:29] LABS: Lactic Acid level (Lactate) 1.1 mmol/L (0.5-2.2)
--- NOTE | 2020-01-08 05:37 | PC.NURSE ---
Pt is confused and agitated. Pt made multiple attempts to get out of bed to elope and continues to pull on tubes. Starting to become verbally and physically aggressive with 1:1 sitter. Verbal explinations given to pt but unable to reorient or redirect. Dr. Mota notified by phone and received orders PRN for IV Haldol.
[2020-01-08 05:45] LABS: Alanine Aminotransferase 31 U/L (0-33); Albumin Level 2.1 g/dL (3.5-5.2); Alkaline Phosphatase 105 IU/L (35-105); Anion Gap 15.3 (5-19); Aspartate Amino Transferase 26 U/L (0-32); Blood Urea Nitrogen 56 mg/dL (8-23); Calcium 8.7 mg/dL (8.5-10.5); Carbon Dioxide 31 mmol/L (22-29); Chloride 91 mmol/L (98-107); Globulin 3.1 g/dL (1.3-4.6); Glomerular Filtration Rate 41.1 mL/min (90-130); Glucose 145 mg/dL (65-115); Potassium 3.3 mmol/L (3.5-5.1); Sodium 134 mmol/L (136-145); Total Bilirubin 0.5 mg/dL (0.15-1.2); Total Protein 5.2 g/dL (6.6-8.7)
[2020-01-08 05:46] LABS: Magnesium 2.3 mg/dL (1.7-2.3); Phosphorus 4.8 mg/dL (2.5-4.5); Slide Review Slide Review Perform
[2020-01-08 05:48] LABS: Troponin 5 6HR 42.25 ng/L (0-10)
[2020-01-08] MEDS: haloperidol inj 5 mg/mL INJ 1 mL 1 MG IVP (05:54)
[2020-01-08] MEDS: morphine 4 mg/mL SDV 1 mL 3 MG IVP (06:03)
[2020-01-08] MEDS: LORazepam 2 mg/mL INJ 1 mL 1 MG IVP ×3 (06:26→23:55)
--- NOTE | 2020-01-08 07:23 | CT_ITS ---
WS: [id number] CT ANGIOGRAPHY ABDOMEN/pelvis AORTA HISTORY: s/p right colectomy with elevated WBC. R/o ischemic bowel TECHNIQUE: CT angiogram is performed during IV injection. Reformation images reviewed. All CT scans a [facility] use at least one of these dose optimization techniques: automated exposure co ntrol; mA and/or kV adjustment per patient size (includes targeted exams where dose is matched to cli nical indication); or iterative reconstruction. CONTRAST: Visipaque 320; 95 mL IV. DLP: 1246.92 mGy.cm COMPARISON: 01/07/2020 Severe chronic emphysematous changes at the lung bases. LEFT lower lobe atelectasis and possible deve loping pneumonia and mild atelectasis at the RIGHT lung base. Heart size is normal. Mild thickening o f the distal esophagus. There is a nasogastric tube in place with tip in the stomach. Hepatomegaly and mild hepatic steatosis. Portal vein is patent. No thrombus in the portal splenic con fluence. Gallbladder is been surgically removed. Spleen and pancreas are negative. No adrenal mass. Abdominal aorta: Atherosclerosis of aorta. Mild dilatation of the infrarenal aorta with a maximum nicholas meter of 3.1 cm. Origin of celiac axis and SMA are patent. No thrombus in the gastric artery or splen ic artery. Small amount calcification at the origin of the SMA but no thrombus. Inferior mesenteric a rtery is not definitely patent. Iliac arteries are patent but contain mild calcified plaque. Mild ath erosclerosis renal artery without stenosis. Extensive small bowel dilatation beginning in the distal duodenum and proximal jejunum. Dilated loops of small bowel up to 5 cm. There is mild enhancement in the small bowel mucosa. Thickening and irreg ularity of the mucosa in the proximal jejunum. There are scattered pockets of air throughout the dila jez small bowel loops. There is hyperemia of the mucosa and possible sloughing of mucosa in the proxi mal jejunum. There is thickening and enhancement of the vasa recta. The distal small bowel loops are not as significantly dilated. There is a small amount of free fluid in the pelvis. Extensive diverticular disease in the sigmoid an d distal colon. Santa catheter in the urinary bladder. There is also air in the bladder which is probably related to catheter placement. Mild anasarca. Foci of air in the soft tissues in the gluteal regions. Degenerative spondylitic changes throughout the spine. Notified Brennan Smith MD at 01/08/2020 4:[address]/CT angio abdomen pelvis [id number] IMPRESSION: 1. Markedly dilated small bowel loops with mural thickening and hyperemia. Fin dings are highly suspicious for ischemic changes in the small bowel. 2. Atherosclerosis of aorta. No occlusions of the SMA or celiac axis. 3. No free air but there is a small amount of free fluid in the pelvis. 4. LEFT lower lobe consolidation, atelectasis but developing pneumonia should be considered. 5. Nasogastric tube in good position.
--- NOTE | 2020-01-08 08:00 | NUR.SHIFT ---
Bowel sounds: Very rare. Auscultated each quadrant. RLQ, 4 minutes passed 1 sound noted. RUQ 3 minutes passed 1 noise. LLQ 4 minutes passed 1 noise. LUQ 2-3 slight noises noted after 3 minutes.
[2020-01-08] MEDS: ipratropium 0.5 mg/2.5 mL Neb INHALATION ×2 (08:04→14:05)
[2020-01-08 08:20] LABS: C Reactive Protein 219.6 mg/L (0.0-4.9)
[2020-01-08] MEDS: potassium chloride oral liq 20 mEq/15 mL UDC NG-TUBE (09:12)
[2020-01-08] MEDS: nicotine 21 mg Patch 1 PATCH TRANSDERMA (09:12)
[2020-01-08] MEDS: docusate sodium 100 mg Capsule PO ×2 (09:13→18:15)
[2020-01-08] MEDS: ascorbic acid 500 mg Tablet PO (09:13)
[2020-01-08] MEDS: multivitamin therapeutic Tablet 1 TAB PO (09:13)
[2020-01-08] MEDS: aspirin 81 mg Chew Tablet PO (09:13)
[2020-01-08] MEDS: cholecalciferol (vitamin D3) 1,000 unit Tablet 2000 UNIT PO (09:13)
[2020-01-08] MEDS: metoprolol tartrate 25 mg Tablet PO ×2 (09:13→18:15)
--- NOTE | 2020-01-08 09:39 | PC.SOCIAL ---
IMM Updated Updated family on Pg 2 IMM. Daughter verbally understands, no questions voiced. Provided a copy to pt/family. Signed,dated, & timed original in chart.
[2020-01-08] MEDS: sodium chloride 0.9% 1,000 ML 150 ML IV ×2 (12:14→22:24)
[2020-01-08] MEDS: iodixanol 320 mg/mL 100mL Btl 95 ML IV (13:22)
--- NOTE | 2020-01-08 14:37 | PM.PN ---
Subjective Subjective: Interval history: Patient was seen early this morning and again this afternoon. This morning she was very confused and combative. She was not. She received a dose of Haldol and couple doses of Ativan. She slept for about 3 to 4 hours. When she woke up this afternoon she was almost back to normal. She was alert and aware where she was at talking normal. She did not have any recollection of what transpired last night or this morning. Patient had an episode where she became unresponsive last night. Her blood pressures became soft and she was tachycardic with a temperature almost of 103. Initial troponins were slightly elevated but repeats came down. She also had a CT scan which showed some pneumonia but not enough to explain what we were seeing here. This afternoon she does not complain of any chest pain or shortness of breath. She does not complain of any abdominal pain. She still has her NG in place. Medications: Reviewed: Yes Vitals/I&O/Wt Last Vital Signs Temp 99.5 F 01/08/20 06:00 Pulse 97 01/08/20 14:09 Resp 18 01/08/20 14:06 BP 108/68 01/08/20 06:00 Pulse Ox 90 01/08/20 14:06 01/07/20 01/08/20 01/08/20 22:59 06:59 14:59 Intake Total 50 / 3361.653 2032.0 / 3361.653 1269.4 / 1269.4 Output Total 5300 / 6850 1350 / 6850 Balance -5250 / -3488.347 682.0 / -3488.347 1269.4 / 1269.4 Physical Exam Narrative: EXAM NARRATIVE: General: No acute distress, Alert. Well nourished. Heart: Regular rate and rhythm. No murmurs, rubs or gallops. Normal capillary refill. Lungs: Some expiratory rhonchi and wheezes noted. No significant crackles. Abdomen: Absent bowel sounds. Mild diffuse tenderness, distended. No hepatosplenomegaly. No gaurding. Extremities: No clubbing, cyanosis, or edema. Negative Chepe's Urinary Catheter Management^: Santa: Cath Placed During This Visit: yes Urethral Indwelling: No Urinary Catheter Date of Insertion: 01/07/20 Urinary Catheter Time of Insertion: 22:49 Data : 01/08/20 04:22 01/08/20 04:22 Micro: Microbiology 01/07/20 23:00 Blood Culture - Preliminary Blood SPECIMEN COLLECTED 01/07/20 22:50 Blood Culture - Preliminary Blood SPECIMEN COLLECTED A&P Assessment and plan (1) S/P right hemicolectomy: -Postop day 7. Neuro: [Patient was struggling with some severe encephalopathy last night and this morning. This seems to have all cleared now. Unclear as to the etiology. I suspect some of this was due to infection and some may be due to her medications namely the Parnate. We will continue to monitor this status as we go along. Obviously happy to see the improvement this morning.] Electrolytes: [Stable at this time.] Hematology: [Markedly elevated white blood cell count consistent with infection. Full etiology of this is unclear. Hemoglobin is stable though.] Cardiology: [Patient was tachycardic and mildly hypotensive. Presume that this was from infection. Her lactate level been normal though. Blood pressures and heart rate are much better this afternoon. Mildly positive troponins which were trending down probably consistent with cardiac strain.] Pulmonary: [Appears to be a left lower quadrant pneumonia on CT scan. She was up to 6 L per nasal cannula but is back down to 5.] GI: [Patient still appears to have an ileus versus an obstruction. CT scan with contrast of the abdomen is pending. There is some suggestion on the 1 done last night that she may have an ischemic bowel. We will follow-up on her CT that is pending. Continue with TPN for now.] Renal: [She had acute worsening yesterday. This may have been related to dehydration from a large amount of volume from her NG tube. She received fluids overnight and her BUN and creatinine have improved this morning. She is having adequate urine output.] ID: [She does appear to be infected with elevated white blood cell count and fevers. She does have a pneumonia but not enough for me to completely explain her decompensation overnight. We will continue to look at the abdomen for possible sources as well. She interestingly is not very tender on her exam this afternoon] General: [Patient will continue with DVT and GI prophylaxis.] Status: Acute Code(s): Z90.49 - Acquired absence of other specified parts of digestive tract (2) CAD (coronary artery disease): Stable. No acute process. Status: Acute Code(s): I25.10 - Atherosclerotic heart disease of [place] coronary artery without angina pectoris (3) COPD (chronic obstructive pulmonary disease): Stable. Continue incentive spirometry and monitor for worsening. Continue with respiratory therapy. Status: Acute Code(s): J44.9 - Chronic obstructive pulmonary disease, unspecified (4) Major depressive disorder, recurrent, in full remission: -Patient has been unable to take her Parnate. I think this is a resulting in some encephalopathy and confusion. She has had this happen to her in the past. I have a call out to her psychiatrist for recommendations on alternative treatments to this. Status: Acute Code(s): F33.42 - Major depressive disorder, recurrent, in full remission Attestations Medical Necessity Statement*: Patient is a 64-year-old female with pneumonia fevers and small bowel obstruction requiring continued inpatient monitoring and treatment. Coding Level of Care Code Acute Retread Mold Operator for [facility] Fwd Diagnoses S/P right hemicolectomy Z90.49 CAD (coronary artery disease) I25.10 COPD (chronic obstructive pulmonary disease) J44.9 Major depressive disorder, recurrent, in full remission F33.42
--- NOTE | 2020-01-08 16:07 | PC.CHAP ---
Pastoral Care Encounter/Spiritual Assessment Type of Contact [] Declined bobbin winder visit [] Patient/Family/Request visit [] Outpatient visit [] Follow-up visit [] Physician referral [] Code/Alert [x] Routine visit [] Staff referral [] Actively dying [] Patient sleeping [] Family support [] [] Out of room [] Palliative care [] [] Receiving care in room [] Pre-surgical visit [] Trauma [] Long length of stay [] ICU visit [] Other: Relational/Emotional Strength [x] Patient feels connected with others/family/visitors/staff [] Distress [] Loneliness/isolation [] Abandonment Spirituality of Patient [] Person of Radha [] Attends Lutheran of their Radha [x] Believes in Prayer [] Reads Bible or Hindu materials [] There are Spiritual issues to be addressed Bolt Machine Operator Interventions [x] Prayer [x] Active listening [x] Non-anxious presence [x] Spiritual/emotional support [] Crisis/trauma care [] Spiritual counseling [] Bereavement support [] Provided bereavement packet [] Provided Bible/devotional materials [] Provided toy/stuffed animal, coloring book to patient or family member [] Provided Communion [] Anointing/[place] [] Salvation [x] Completed spiritual assessment [] Other: Impact on Illness or Injury [] Angry [] Fearful [] Anxious [] Often cries [] Exhaustion [] Unable to work [] Unable to attend temple [] Unable to walk/stand [] Unable to read [] Unable to drive [] Unable to eat/drink [] Unable to sleep [] Unable to be with family [] Patient intubated [] Other: Summary Pt had one visitor who was very supportive of patient. Patient was more concerned about her family's needs than about herself. Time spent with patient 17 minutes
--- NOTE | 2020-01-08 18:10 | PM.PN ---
Subjective Subjective: Interval history: Patient had a rough course last night where she was noted to be unresponsive. Patient subsequently was awake and due to her status was transferred to the ICU. Her troponins were initially high but they trended down. Her white count went up to 27. CT of the head was negative, chest showed left lower lobe pneumonia and abdomen pelvis showed thickening of the small bowel but no evidence of free air or pneumatosis. Patient did not complain of any abdominal pain. Vitals/I&O/Wt Last Vital Signs Temp 98.7 F 01/08/20 15:00 Pulse 93 01/08/20 15:00 Resp 23 H 01/08/20 15:00 BP 100/63 01/08/20 15:00 Pulse Ox 83 L 01/08/20 15:00 01/08/20 01/08/20 01/08/20 06:59 14:59 22:59 Intake Total 2032.0 / 3361.653 1269.4 / 1269.4 Output Total 1350 / 6850 Balance 682.0 / -3488.347 1269.4 / 1269.4 Physical Exam Narrative: EXAM NARRATIVE: Abdomen: Soft, nondistended, nontender, NG tube to low intermittent suction Santa to gravity Neuro: Patient is awake, follows commands Urinary Catheter Management^: Santa: Cath Placed During This Visit: yes Urethral Indwelling: No Urinary Catheter Date of Insertion: 01/07/20 Urinary Catheter Time of Insertion: 22:49 Data : 01/08/20 04:22 01/08/20 04:22 Micro: Microbiology 01/07/20 11:26 Urine Culture - Preliminary Urine,Clean Catch 01/07/20 23:00 Blood Culture - Preliminary Blood SPECIMEN COLLECTED 01/07/20 22:50 Blood Culture - Preliminary Blood SPECIMEN COLLECTED CT Abd/Pel: Radiologist's impression: Laboratory Results WBC 27.2 10^3/uL (4.0-10.0) H 01/08/20 04:22 RBC 3.64 10^6/uL (4.1-5.3) L 01/08/20 04:22 Hgb 10.8 g/dL (11.5-15.3) L 01/08/20 04:22 Hct 33.5 % (37.0-47.0) L 01/08/20 04:22 MCV 92.0 fL (81-99) 01/08/20 04:22 MCH 29.7 pg (28.0-34.0) 01/08/20 04:22 MCHC 32.2 g/dL (30.0-36.0) 01/08/20 04:22 RDW 12.7 % (12.1-15.1) 01/08/20 04:22 Plt Count 383 10^3/cmm (130-400) 01/08/20 04:22 MPV 11.2 fL (7.4-10.4) H 01/08/20 04:22 Neut % (Auto) 84.0 % 01/08/20 04:22 Lymph % (Auto) 9.2 % 01/08/20 04:22 [place] % (Auto) 5.3 % 01/08/20 04:22 Eos % (Auto) 0.1 % 01/08/20 04:22 Baso % (Auto) 0.4 % 01/08/20 04:22 Neut # (Auto) 22.8 10^3/uL (1.8-7.7) H 01/08/20 04:22 Lymph # (Auto) 2.5 10^3/uL (0.8-4.8) 01/08/20 04:22 [place] # (Auto) 1.4 10^3/uL (0.2-0.9) H 01/08/20 04:22 Eos # (Auto) 0.0 10^3/uL (0.0-0.8) 01/08/20 04:22 Baso # (Auto) 0.1 10^3/uL (0.0-0.1) 01/08/20 04:22 Nucleated RBC % (auto) 0 % 01/08/20 04:22 Nucleated RBCs # 0.0 /100WBC 01/08/20 04:22 Specimen Type Arterial 01/07/20 21:34 Sample Site Radial, left 01/07/20 21:34 ABG pH 7.58 (7.35-7.45) H* 01/07/20 21:34 ABG pCO2 37.6 mmHg (35-45) 01/07/20 21:34 ABG pO2 52.7 mmHg (80.0-100.0) L 01/07/20 21:34 ABG HCO3 34.9 mmol/L (22-26) H 01/07/20 21:34 ABG O2 Saturation 91.3 01/07/20 21:34 ABG Base Excess 12.0 mmol/L (-2.0-2.0) H 01/07/20 21:34 Elmer Test Pos 01/07/20 21:34 A-a O2 Gradient 47.5 mmHg (5-10) H 01/07/20 21:34 Hematocrit 37.9 % (37-47) 01/07/20 21:34 Hgb O2 Saturation 89.7 % (95-100) L 01/07/20 21:34 Carboxyhemoglobin 1.0 %THgb (0.4-20.1) 01/07/20 21:34 Methemoglobin 0.8 % (0.4-1.5) 01/07/20 21:34 Total Hemoglobin 12.4 g/dL (12-16) 01/07/20 21:34 Sodium 135.0 mmol/L (131-143) 01/07/20 21:34 Potassium 3.4 mmol/L (3.5-5.0) L 01/07/20 21:34 Glucose 157.0 mg/dL (70-115) H 01/07/20 21:34 Ionized Calcium 1.1 mmol/L (1.1-1.4) 01/07/20 21:34 O2 Delivery Device Nc 01/07/20 21:34 O2 Liters/Min 5.0 % 01/07/20 21:34 Oral Surgery Physician ID [email or web address] 01/07/20 21:34 Sodium 134 mmol/L (136-145) L 01/08/20 04:22 Potassium 3.3 mmol/L (3.5-5.1) L 01/08/20 04:22 Chloride 91 mmol/L (98-107) L 01/08/20 04:22 Carbon Dioxide 31 mmol/L (22-29) H 01/08/20 04:22 Anion Gap 15.3 (5-19) 01/08/20 04:22 BUN 56 mg/dL (8-23) H 01/08/20 04:22 Creatinine 1.3 mg/dL (0.5-0.9) H 01/08/20 04:22 GFR Calculation 41.1 mL/min (90-130) L 01/08/20 04:22 Glucose 145 mg/dL (65-115) H 01/08/20 04:22 POC Glucose 140 mg/dL (70-110) 01/07/20 21:02 Calculated Osmolality 284 mOsm/kg (285-295) L 01/07/20 03:26 Lactic Acid 1.9 mmol/L (0.5-2.2) 01/01/20 20:08 Lactic Acid (Sepsis) 1.1 mmol/L (0.5-2.2) 01/08/20 04:22 Lactate 1.4 mmol/L (0.5-2.2) 01/07/20 21:25 Calcium 8.7 mg/dL (8.5-10.5) 01/08/20 04:22 Phosphorus 4.8 mg/dL (2.5-4.5) H 01/08/20 04:22 Magnesium 2.3 mg/dL (1.7-2.3) 01/08/20 04:22 Total Bilirubin 0.5 mg/dL (0.15-1.2) 01/08/20 04:22 AST 26 U/L (0-32) 01/08/20 04:22 ALT 31 U/L (0-33) 01/08/20 04:22 Alkaline Phosphatase 105 IU/L (35-105) 01/08/20 04:22 Troponin I 6 Hour 42.25 ng/L (0-10) H 01/08/20 04:22 Troponin I Hi Sens Del -18.75 ng/L (0-12) L 01/08/20 04:22 Troponin T Gen 5 ng/L 69 ng/mL (0-10) H 01/07/20 21:25 Troponin T Baseline 61 ng/mL (0-10) H 01/07/20 22:50 Troponin T 120 Minute 56.59 ng/mL (0-10) H 01/08/20 00:10 Delta Troponin T -4.41 ABS# (0-10) L 01/08/20 00:10 C-Reactive Protein 219.6 mg/L (0.0-4.9) H 01/08/20 04:22 Total Protein 5.2 g/dL (6.6-8.7) L 01/08/20 04:22 Albumin 2.1 g/dL (3.5-5.2) L 01/08/20 04:22 Globulin 3.1 g/dL (1.3-4.6) 01/08/20 04:22 Lipase 19 U/L (13-60) 01/01/20 07:45 Urine Color Dark yellow (Yellow) 01/07/20 11:26 Urine Appearance Hazy (CLEAR) A 01/07/20 11:26 Urine pH 5 (5-7) 01/07/20 11:26 Ur Specific [place] 1.010 (1.005-1.030) 01/07/20 11:26 Urine Protein 1+ (Negative) H 01/07/20 11:26 Urine Glucose (UA) Norm (Normal) 01/07/20 11:26 Urine Ketones Negative (Negative) 01/07/20 11:26 Urine Occult Blood Neg (Negative) 01/07/20 11:26 Urine Nitrate Negative (Negative) 01/07/20 11:26 Urine Bilirubin 1+ (NEGATIVE) H 01/07/20 11:26 Urine Urobilinogen Norm mg/dL (Negative) 01/07/20 11:26 Ur Leukocyte Esterase Negative (Negative) 01/07/20 11:26 Urine RBC 0-4 /hpf (0-2) H 01/07/20 11:26 Urine WBC None /hpf (0-5) 01/07/20 11:26 Ur Squamous Epith Cells None (0-5) 01/07/20 11:26 Urine Bacteria 1+ (NONE) H 01/07/20 11:26 Hyaline Casts 5-10 H 01/07/20 11:26 Urine Mucus 2+ 01/01/20 07:44 Gastric Occult Blood Positive (Negative) H 01/07/20 21:30 Impressions Chest/Abdomen/Pelvis CT 01/07/20 23:06 IMPRESSION: 1. Thickened a distended small bowel loops representing nonspecific enteritis. Ischemic enteritis is not excluded. Correlation with clinical findings is suggested. 2. Recent postsurgical changes of cholecystectomy and partial bowel resection. 3. No abscess is identified. Radiation Dose CTDIVOL = (mGy): DLP = 2400.07~2400.07 (mGy-cm) ADDENDUM: 01/08/2051 Addendum: Findings were discussed with Dr. Hatch at 01/08/2020 12:50 AM DATA SCIENCES DIRECTOR. Radiation Dose CTDIVOL = (mGy): DLP = 2400.07~2400.07 (mGy-cm) Head CT 01/07/20 23:06 IMPRESSION: No acute findings Radiation Dose CTDIVOL = (mGy): DLP = 911.13 (mGy-cm) Abdomen/Pelvis CTA 01/08/20 07:23 IMPRESSION: 1. Markedly dilated small bowel loops with mural thickening and hyperemia. Findings are highly suspicious for ischemic changes in the small bowel. 2. Atherosclerosis of aorta. No occlusions of the SMA or celiac axis. 3. No free air but there is a small amount of free fluid in the pelvis. 4. LEFT lower lobe consolidation, atelectasis but developing pneumonia should be considered. 5. Nasogastric tube in good position. A&P Assessment and plan (1) S/P right hemicolectomy: Patient had been stable during the course of the day, CTA abdomen and pelvis was obtained due to the leukocytosis which showed thickened small bowel with no evidence of pneumatosis or free air. Due to her history of bowel ischemia noted on the prior surgery we started her on a heparin drip as per protocol. We will continue with TPN, vancomycin and Zosyn and Flagyl which is started empirically last night NG tube to low uterine suction Santa to gravity Repeat labs in the morning Status: Acute Code(s): Z90.49 - Acquired absence of other specified parts of digestive tract Attestations Medical Necessity Statement*: Postop ileus, possible ischemic bowel status post right hemicolectomy Coding Level of Care Code Acute Third Helper for [facility] Fwd Diagnoses S/P right hemicolectomy Z90.49
[2020-01-08] MEDS: heparin drip 25,000 UNIT/500 ML PREMIX 26.7 UNIT IV (18:33)
--- NOTE | 2020-01-08 18:37 | PC.NURSE ---
Heparin gtt started at 1333 units/hour as ordered. Rate calculated to.26.66.ml/hr. Calculation confirmed by YVETTE Ramirez RN. Pump rate set for 26.7 ml/hr.
[2020-01-08 18:47] LABS: Partial Thromboplastin Time 27.3 SECONDS (23.9-36.7)
[2020-01-08] MEDS: heparin 5,000 unit/mL INJ 1 mL 5000 UNIT IV (18:50)
[2020-01-08 20:29] LABS: Lactic Acid level (Lactate) 1.2 mmol/L (0.5-2.2)
[2020-01-08] MEDS: atorvastatin 40 mg Tablet 20 MG PO (22:22)
[2020-01-08] MEDS: fluticasone nasal spray 16gm Btl 2 SPRAY NASAL (22:22)
[2020-01-08] MEDS: sennosides 8.6 mg Tablet 17.2 MG PO (22:25)
[2020-01-09] VITALS (15 sets, daily range): BP systolic 90–110; BP diastolic 51–63; PULSE 84–97; RESP 18–27; TEMP 36.4–38.2; O2SAT 2–97
[2020-01-09 00:28] LABS: Partial Thromboplastin Time 44.4 SECONDS (23.9-36.7)
[2020-01-09 01:09] LABS: Lactic Acid level (Lactate) 1.1 mmol/L (0.5-2.2)
[2020-01-09] MEDS: AA-Dex 5%-20% w/Lytes 1,000 ML with multivitamin inj 5 ML 83 ML IV ×2 (01:11→16:04)
[2020-01-09] MEDS: lactulose oral liq 20 gm/30 mL UDC 10 GM PO ×2 (03:31→16:28)
[2020-01-09] MEDS: piperacillin-tazobactam 3.375 GM in sodium chloride 0.9% (plus) 50 ML IV ×3 (03:31→19:22)
[2020-01-09] MEDS: metroNIDAZOLE IV 500 MG/100 ML PREMIX 100 MG IV ×4 (05:24→23:14)
[2020-01-09] MEDS: acetaminophen 650 mg Supp PR (06:26)
[2020-01-09 06:28] LABS: Basophils % 0.2 %; Eosinophils # 0.4 10^3/uL (0.0-0.8); Eosinophils % 2.2 %; Hematocrit 28.2 % (37.0-47.0); Lymphocytes # 2.2 10^3/uL (0.8-4.8); Lymphocytes % 11.6 %; Mean Corpuscular HGB Conc 31.9 g/dL (30.0-36.0); Mean Corpuscular Hemoglobin 29.7 pg (28.0-34.0); Mean Corpuscular Volume 93.1 fL (81-99); Mean Platelet Volume 10.2 fL (7.4-10.4); Monocytes # 1.1 10^3/uL (0.2-0.9); Monocytes % 5.9 %; Neutrophils # 15.1 10^3/uL (1.8-7.7); Neutrophils % 78.7 %; Nucleated Red Blood Cells % 0 %; Platelet Count 339 10^3/cmm (130-400); Red Blood Count 3.03 10^6/uL (4.1-5.3); White Blood Count 19.2 10^3/uL (4.0-10.0)
[2020-01-09 06:36] LABS: Partial Thromboplastin Time 51.7 SECONDS (23.9-36.7)
[2020-01-09 06:50] LABS: Alanine Aminotransferase 20 U/L (0-33); Alkaline Phosphatase 83 IU/L (35-105); Anion Gap 12.6 (5-19); Aspartate Amino Transferase 17 U/L (0-32); Blood Urea Nitrogen 33 mg/dL (8-23); Calcium 8.4 mg/dL (8.5-10.5); Carbon Dioxide 35 mmol/L (22-29); Chloride 97 mmol/L (98-107); Globulin 3.1 g/dL (1.3-4.6); Glomerular Filtration Rate 62.8 mL/min (90-130); Glucose 136 mg/dL (65-115); Lactic Acid level (Lactate) 1.1 mmol/L (0.5-2.2); Sodium 142 mmol/L (136-145); Total Bilirubin 0.2 mg/dL (0.15-1.2); Total Protein 5.1 g/dL (6.6-8.7)
[2020-01-09 06:55] LABS: Potassium 2.6 mmol/L (3.5-5.1)
--- NOTE | 2020-01-09 08:00 | NUR.SHIFT ---
Bowel Sounds improved. Still rare, but heard noises after 2-3 minutes in all 4 quadrants.
[2020-01-09] MEDS: potassium chloride premix 40 MEQ/100 ML PREMIX 50 MEQ IV ×2 (08:59→12:31)
[2020-01-09] MEDS: potassium chloride oral liq 20 mEq/15 mL UDC NG-TUBE (09:06)
[2020-01-09] MEDS: aspirin 81 mg Chew Tablet PO (09:06)
[2020-01-09] MEDS: cholecalciferol (vitamin D3) 1,000 unit Tablet 2000 UNIT PO (09:06)
[2020-01-09] MEDS: multivitamin therapeutic Tablet 1 TAB PO (09:06)
[2020-01-09] MEDS: ascorbic acid 500 mg Tablet PO (09:06)
[2020-01-09] MEDS: metoprolol tartrate 25 mg Tablet PO ×2 (09:06→18:24)
[2020-01-09] MEDS: docusate sodium 100 mg Capsule PO ×2 (09:06→18:24)
[2020-01-09] MEDS: nicotine 21 mg Patch 1 PATCH TRANSDERMA (09:06)
[2020-01-09] MEDS: LORazepam 2 mg/mL INJ 1 mL 1 MG IVP ×2 (09:25→20:59)
[2020-01-09] MEDS: sodium chlor 0.9% + KCl 20 mEq 20 MEQ/1,000 ML BAG 75 MEQ IV (10:43)
[2020-01-09] MEDS: famotidine 20 mg/2 mL INJ IVP (12:31)
[2020-01-09 12:34] LABS: Partial Thromboplastin Time 47.4 SECONDS (23.9-36.7)
[2020-01-09 12:36] LABS: Lactic Acid level (Lactate) 1.2 mmol/L (0.5-2.2)
[2020-01-09 12:38] LABS: Magnesium 2.4 mg/dL (1.7-2.3); Potassium 3.2 mmol/L (3.5-5.1)
[2020-01-09] MEDS: heparin drip 25,000 UNIT/500 ML PREMIX 33 UNIT IV (12:45)
[2020-01-09] MEDS: heparin 5,000 unit/mL INJ 1 mL 1700 UNIT IV (12:55)
--- NOTE | 2020-01-09 18:30 | PM.PN ---
Subjective Subjective: Interval history: H&P and hospital course reviewed. Labs reviewed. Patient is sitting comfortably in bed with NG tube placement on heparin drip, TPN. Her hemodynamics have been stable. She denies of having any nausea, vomiting, abdominal pain, headache, palpitations. Patient has NG tube to suction since morning patient has drained up to 1400 cc of brown-colored bilious gastric fluid. Vitals/I&O/Wt Last Vital Signs Temp 97.6 F 01/09/20 12:00 Pulse 96 01/09/20 16:00 Resp 27 H 01/09/20 16:00 BP 110/62 01/09/20 16:00 Pulse Ox 94 01/09/20 16:00 01/09/20 01/09/20 01/09/20 06:59 14:59 22:59 Intake Total 2386.340 / 4905.740 1208.910 / 1208.910 450 / 1658.910 Output Total 3100 / 5450 1950 / 1950 400 / 2350 Balance -713.660 / -544.260 -741.090 / -741.090 50 / -691.090 Physical Exam Narrative: EXAM NARRATIVE: General: No acute distress, AO x3 HEENT: PERRLA, pupils bilaterally equal and reactive, NG to present to suction. Chest: Normal vesicular breath sounds, no added sounds, equal good air entry bilaterally CVS: S1-S2 regular, no murmurs, no tachycardia, no gallops, no rubs Abdomen: Soft, nontender, no organomegaly, bowel sounds present. Neuro: No focal deficits, no facial deformity, AO x3, power 5/5 in all limbs Urinary Catheter Management^: Santa: Cath Placed During This Visit: yes Urethral Indwelling: No Reason for Continuing Indwelling Catheter: Accurate Measurement of Urinary Output in Critically Ill Patients Urinary Catheter Date of Insertion: 01/07/20 Urinary Catheter Time of Insertion: 22:49 Data : 01/09/20 06:20 01/09/20 12:08 Micro: Microbiology 01/07/20 11:26 Urine Culture - Final Urine,Clean Catch 01/07/20 23:00 Blood Culture - Preliminary Blood NEGATIVE TO DATE 01/07/20 22:50 Blood Culture - Preliminary Blood NEGATIVE TO DATE A&P Assessment and plan (1) S/P right hemicolectomy: Status: Acute Code(s): Z90.49 - Acquired absence of other specified parts of digestive tract (2) HTN (hypertension): Status: Acute Code(s): I10 - Essential (primary) hypertension (3) COPD (chronic obstructive pulmonary disease): Status: Acute Code(s): J44.9 - Chronic obstructive pulmonary disease, unspecified (4) CAD (coronary artery disease): Status: Acute Code(s): I25.10 - Atherosclerotic heart disease of [place] coronary artery without angina pectoris (5) Panic disorder: Status: Acute Code(s): F41.0 - Panic disorder [episodic paroxysmal anxiety] (6) Major depressive disorder, recurrent, in full remission: Status: Acute Code(s): F33.42 - Major depressive disorder, recurrent, in full remission Additional A&P Information Neuro: AO x3 today. I believe most of her toxic metabolic encephalopathy was due to and withdrawal from her long-term psychiatric medications. Continue with Parnate, baclofen at home dose through the NG tube. Since patient is back on these medications her mentation seems to have improved. GI: CT scan done yesterday suggestive of ischemic colitis. Patient is postop day 8 for hemicolectomy and cholecystectomy. Continue patient on heparin drip at bedrest protocol keeping a PT between 55-70. Check hemoglobin every 12 as per the protocol. Continue TPN for nutrition. Protonix for PUD prophylaxis. Bowel regimen as per Dr. Smith. ID: White count 19,000 today. Better than yesterday but still markedly elevated. Patient is on broad-spectrum antibiotic with vancomycin, Zosyn, Flagyl. We will continue the same antibiotics at renally dosed. We will de-escalate antibiotics as per the cultures. For now cultures are negative. We will check stool studies if patient has a bowel movement to rule out C. difficile for bacterial antigens. Cardiovascular: Keep mean arterial pressure over 65. If required will start patient on levo fed. For now blood pressures have maintained at a good rate. Continue on Lopressor 25 mg every 12 hourly through the NG tube to avoid reflex tachycardia. Patient's blood pressure and heart rate have remained stable on the current Lopressor dose. Pulmonary: Keep saturation over 92%. Oxygen supplementation as required. Continue with Advair, Flonase. Will add DuoNeb's. Renal: Function seems stable. Patient has hypokalemia mostly because of increased gastric secretions. Will replace with 80 mEq IV. Continue with IV hydration with NS with potassium replacement at 75 cc/h. We will continue to monitor sodium levels if going high will change fluid to half NS. Hematology: Hemoglobin 9 today. Patient's hemoglobin yesterday was 10.8. Will check hemoglobin again at 8 PM. Continue with heparin drip for ischemic colitis. Surgical recommendations appreciated. Full code N.p.o. Heparin drip will work for DVT prophylaxis as well. We will change from famotidine to Protonix 40 mg every 12 for PUD prophylaxis. Attestations Medical Necessity Statement*: Controlled hospitalization for postop management. Critical Care Time: Critical Care Time (min): 70 Coding Level of Care Code Acute Induction Coordination Engineer for [facility] Fwd Diagnoses S/P right hemicolectomy Z90.49 HTN (hypertension) I10 COPD (chronic obstructive pulmonary disease) J44.9 CAD (coronary artery disease) I25.10 Panic disorder F41.0 Major depressive disorder, recurrent, in full remission F33.42
[2020-01-09 18:43] LABS: Partial Thromboplastin Time 57.4 SECONDS (23.9-36.7)
[2020-01-09 18:45] LABS: Lactic Acid level (Lactate) 1.4 mmol/L (0.5-2.2)
[2020-01-09] MEDS: pantoprazole 40 mg SDV IVP (19:22)
[2020-01-09] MEDS: ipratropium-albuterol 3 mL Neb INHALATION (20:23)
[2020-01-09 20:35] LABS: Hematocrit 29.1 % (37.0-47.0); Hemoglobin 9.2 g/dL (11.5-15.3)
[2020-01-09] MEDS: sennosides 8.6 mg Tablet 17.2 MG PO (20:59)
[2020-01-09] MEDS: atorvastatin 40 mg Tablet PO (20:59)
--- NOTE | 2020-01-09 22:05 | PM.PN ---
Subjective Subjective: Interval history: Patient denies any abdominal pain, nausea or vomiting. NG output is still high though she is passing flatus. Medications: Reviewed: Yes Vitals/I&O/Wt Last Vital Signs Temp 97.6 F 01/09/20 12:00 Pulse 89 01/09/20 20:31 Resp 18 01/09/20 20:25 BP 104/61 01/09/20 20:00 Pulse Ox 93 01/09/20 20:25 01/09/20 01/09/20 01/09/20 06:59 14:59 22:59 Intake Total 2386.340 / 4905.740 1367.243 / 2912.726 1545.483 / 2912.726 Output Total 3100 / 5450 1950 / 3300 1350 / 3300 Balance -713.660 / -544.260 -582.757 / -387.274 195.483 / -387.274 Physical Exam Narrative: EXAM NARRATIVE: Abdomen: Soft, nondistended, nontender, incisions healing well Urinary Catheter Management^: Santa: Cath Placed During This Visit: yes Urethral Indwelling: No Reason for Continuing Indwelling Catheter: Accurate Measurement of Urinary Output in Critically Ill Patients Urinary Catheter Date of Insertion: 01/07/20 Urinary Catheter Time of Insertion: 22:49 Data : 01/11/20 06:40 01/11/20 06:40 Micro: Microbiology 01/07/20 11:26 Urine Culture - Final Urine,Clean Catch 01/07/20 23:00 Blood Culture - Preliminary Blood NEGATIVE TO DATE 01/07/20 22:50 Blood Culture - Preliminary Blood NEGATIVE TO DATE A&P Assessment and plan (1) S/P right hemicolectomy: Continue with n.p.o. and ice chips Ambulate ad heaven. Discontinue all opioid pain medications NG tube to low uterine suction Ambulate with physical therapy Santa to gravity Lovenox for DVT prophylaxis Protonix for GI prophylaxis Medical management as per hospitalist service over the weekend Status: Acute Code(s): Z90.49 - Acquired absence of other specified parts of digestive tract Attestations Medical Necessity Statement*: Status post right hemicolectomy for ischemic bowel, continued inpatient stay due to mental status changes Coding Level of Care Code Acute Drawing Machine Operator for [facility] Fwd Diagnoses S/P right hemicolectomy Z90.49
[2020-01-10] VITALS (23 sets, daily range): BP systolic 82–114; BP diastolic 49–64; PULSE 82–101; RESP 16–27; TEMP 36.8–37.6; O2SAT 92–96
[2020-01-10 00:31] LABS: Partial Thromboplastin Time 62.7 SECONDS (23.9-36.7)
[2020-01-10 00:35] LABS: Vancomycin Trough 9.8 ug/mL (10-15)
[2020-01-10] MEDS: ipratropium-albuterol 3 mL Neb INHALATION ×4 (02:43→20:08)
[2020-01-10] MEDS: lactulose oral liq 20 gm/30 mL UDC 10 GM PO ×2 (03:33→15:45)
[2020-01-10] MEDS: piperacillin-tazobactam 3.375 GM in sodium chloride 0.9% (plus) 50 ML IV ×3 (03:33→18:27)
[2020-01-10] MEDS: AA-Dex 5%-20% w/Lytes 1,000 ML with multivitamin inj 5 ML 83 ML IV ×2 (03:34→18:10)
[2020-01-10] MEDS: heparin drip 25,000 UNIT/500 ML PREMIX 33 UNIT IV ×2 (03:48→20:06)
[2020-01-10] MEDS: metroNIDAZOLE IV 500 MG/100 ML PREMIX 100 MG IV ×4 (05:01→23:38)
[2020-01-10] MEDS: LORazepam 2 mg/mL INJ 1 mL 1 MG IVP ×3 (05:01→21:40)
[2020-01-10] MEDS: pantoprazole 40 mg SDV IVP ×2 (06:13→18:07)
[2020-01-10] MEDS: acetaminophen 650 mg Supp PR ×2 (06:15→22:20)
--- NOTE | 2020-01-10 06:15 | XR_ITS ---
WS: [id number] ABDOMEN 1 VIEWS HISTORY: 64 years old Female with ileus Supine Abdomen comparison 01/07/2020 FINDINGS: Improved small bowel distention. Interval NGT tip overlies the stomach. Right up quadrant surgical cl ips and anterior abdominal wall surgical simone reidentified. No acute osseous abnormality. Mild lef t hemidiaphragm elevation. XR/XR abdomen min 2V [id number] IMPRESSION: 1. Improved small bowel distention. 2. Interval NGT tip overlies the stomach.
[2020-01-10 06:35] LABS: Platelet Count 349 10^3/cmm (130-400)
[2020-01-10 06:45] LABS: Partial Thromboplastin Time 62.5 SECONDS (23.9-36.7)
--- NOTE | 2020-01-10 08:00 | NUR.SHIFT ---
Bowel sounds much improved today. Noised noted in all 4 quadrants within 5 minutes. Pt noted to be irritable this am.
[2020-01-10 09:01] LABS: Alanine Aminotransferase 16 U/L (0-33); Albumin Level 2.1 g/dL (3.5-5.2); Alkaline Phosphatase 80 IU/L (35-105); Anion Gap 15.9 (5-19); Aspartate Amino Transferase 16 U/L (0-32); Blood Urea Nitrogen 22 mg/dL (8-23); Calcium 8.6 mg/dL (8.5-10.5); Carbon Dioxide 28 mmol/L (22-29); Chloride 101 mmol/L (98-107); Globulin 3.1 g/dL (1.3-4.6); Glucose 153 mg/dL (65-115); Sodium 142 mmol/L (136-145); Total Bilirubin 0.2 mg/dL (0.15-1.2); Total Protein 5.2 g/dL (6.6-8.7)
--- NOTE | 2020-01-10 09:10 | PC.SOCIAL ---
IMM Updated Page 2 of IMM updated and given to patient. Initialed, dated, and timed and placed back in chart.
--- NOTE | 2020-01-10 09:10 | P.PN_ITS ---
Subjective Subjective: Interval history: patient did well last night, no nausea or vomiting. She denies any abdominal pain. Her white count is down to 14. Medications: Reviewed: Yes Vitals/I&O/Wt Last Vital Signs Temp 98.5 F 01/10/20 04:00 Pulse 101 H 01/10/20 08:24 Resp 18 01/10/20 08:22 BP 114/64 01/10/20 06:00 Pulse Ox 93 01/10/20 08:22 01/09/20 01/10/20 01/10/20 22:59 06:59 14:59 Intake Total 1635.483 / 4798.393 1795.667 / 4798.393 Output Total 1350 / 5900 2600 / 5900 Balance 285.483 / -1101.607 -804.333 / -1101.607 Physical Exam Narrative: EXAM NARRATIVE: Abdomen: Soft, nondistended, nontender, NG tube to low uterine suction Urinary Catheter Management^: Santa: Cath Placed During This Visit: yes Urethral Indwelling: No Reason for Continuing Indwelling Catheter: Accurate Measurement of Urinary Output in Critically Ill Patients Urinary Catheter Date of Insertion: 01/07/20 Urinary Catheter Time of Insertion: 22:49 Data : 01/11/20 06:40 01/11/20 06:40 Micro: Microbiology 01/07/20 11:26 Urine Culture - Final Urine,Clean Catch A&P Assessment and plan (1) S/P right hemicolectomy: Status post right hemicolectomy and cholecystectomy with postop ileus secondary to ischemic bowel. Continue NG tube to low uterine suction. White count is trending down patient does not have any evidence of peritonitis. Continue heparin drip Ambulate with physical therapy Abdominal x-ray shows improved small bowel obstruction. Lovenox for DVT prophylaxis Pepcid for GI prophylaxis Status: Acute Code(s): Z90.49 - Acquired absence of other specified parts of digestive tract Attestations Medical Necessity Statement*: Continue with IV antibiotics and heparin for n ow. Patient will need continue ICU stay, hopefully if she remained stable overnight she could go to the floor tomorrow. Coding Level of Care Code Acute Distribution Sales Representative for [facility] Fwd Diagnoses S/P right hemicolectomy Z90.49
[2020-01-10 09:44] LABS: Potassium 2.9 mmol/L (3.5-5.1)
[2020-01-10] MEDS: baclofen 10 mg Tablet PO (09:52)
[2020-01-10] MEDS: ascorbic acid 500 mg Tablet PO (09:52)
[2020-01-10] MEDS: docusate sodium 100 mg Capsule PO ×2 (09:52→18:07)
[2020-01-10] MEDS: metoprolol tartrate 25 mg Tablet PO (09:52)
[2020-01-10] MEDS: nicotine 21 mg Patch 1 PATCH TRANSDERMA (09:53)
[2020-01-10] MEDS: multivitamin therapeutic Tablet 1 TAB PO (09:53)
[2020-01-10] MEDS: aspirin 81 mg Chew Tablet PO (09:54)
[2020-01-10] MEDS: potassium chloride oral liq 20 mEq/15 mL UDC NG-TUBE (09:55)
[2020-01-10] MEDS: ondansetron 2 mg/ML SDV 2 mL 4 MG IVP (10:13)
[2020-01-10] MEDS: potassium chloride premix 40 MEQ/100 ML PREMIX 50 MEQ IV ×2 (10:19→12:41)
[2020-01-10 11:47] LABS: Basophils # 0.1 10^3/uL (0.0-0.1); Basophils % 0.3 %; Eosinophils # 0.5 10^3/uL (0.0-0.8); Eosinophils % 3.2 %; Hematocrit 31.6 % (37.0-47.0); Hemoglobin 9.8 g/dL (11.5-15.3); Lymphocytes # 1.9 10^3/uL (0.8-4.8); Lymphocytes % 13.3 %; Mean Corpuscular Hemoglobin 29.6 pg (28.0-34.0); Mean Corpuscular Volume 95.5 fL (81-99); Mean Platelet Volume 11.1 fL (7.4-10.4); Neutrophils # 10.8 10^3/uL (1.8-7.7); Neutrophils % 74.4 %; Nucleated Red Blood Cells % 0 %; Platelet Count 381 10^3/cmm (130-400); Red Blood Count 3.31 10^6/uL (4.1-5.3); Red Cell Distribution Width 12.9 % (12.1-15.1); White Blood Count 14.5 10^3/uL (4.0-10.0)
[2020-01-10 12:25] LABS: Partial Thromboplastin Time 75.1 SECONDS (23.9-36.7)
--- NOTE | 2020-01-10 13:30 | PC.NURSE ---
Pt yelling out about her dog. When attempted to re-orient, she argued that he was running off with something. Attempted to re-oriented again and pt said Fine. Just fine. I AM the crazy one. Third attempt at re-orientation to place and time , pt said ok then proceeded to talk about being in her house. Pt required extensive explanation and reassurance to realize she was in the hospital.
--- NOTE | 2020-01-10 14:03 | PC.CHAP ---
Pastoral Care Encounter/Spiritual Assessment Type of Contact [] Declined water main inspector visit [] Patient/Family/Request visit [] Outpatient visit [] Follow-up visit [] Physician referral [] Code/Alert [x] Routine visit [] Staff referral [] Actively dying [x] Patient sleeping [] Family support [] [] Out of room [] Palliative care [] [] Receiving care in room [] Pre-surgical visit [] Trauma [] Long length of stay [x] ICU visit [] Other: Relational/Emotional Strength [] Patient feels connected with others/family/visitors/staff [] Distress [] Loneliness/isolation [] Abandonment Spirituality of Patient [] Person of Radha [] Attends Jewish of their Radha [] Believes in Prayer [] Reads Bible or Quaker materials [] There are Spiritual issues to be addressed Stone Polisher Hand Interventions [] Prayer [] Active listening [] Non-anxious presence [] Spiritual/emotional support [] Crisis/trauma care [] Spiritual counseling [] Bereavement support [] Provided bereavement packet [] Provided Bible/devotional materials [] Provided toy/stuffed animal, coloring book to patient or family member [] Provided Communion [] Anointing/[place] [] Salvation [] Completed spiritual assessment [] Other: Impact on Illness or Injury [] Angry [] Fearful [] Anxious [] Often cries [] Exhaustion [] Unable to work [] Unable to attend confucianism [] Unable to walk/stand [] Unable to read [] Unable to drive [] Unable to eat/drink [] Unable to sleep [] Unable to be with family [] Patient intubated [] Other: Summary Yuval did not disturb patient Time spent with patient
--- NOTE | 2020-01-10 15:11 | P.PN_ITS ---
Subjective Subjective: Interval history: No acute events overnight. On eval sitting comfortably in bed and having her oral meds. C/o mild nausea but no vomiting. Have maintained her BP in last 24 hrs. Have put out 2000 cc from NGT overnight. Medications: Reviewed: Yes Vitals/I&O/Wt Last Vital Signs Temp 98.5 F 01/10/20 04:00 Pulse 88 01/10/20 14:35 Resp 18 01/10/20 14:34 BP 114/64 01/10/20 06:00 Pulse Ox 92 01/10/20 14:34 01/10/20 01/10/20 01/10/20 06:59 14:59 22:59 Intake Total 1795.667 / 4798.393 1093.267 / 1093.267 Output Total 2600 / 5900 Balance -804.333 / -8335.617 1052.267 / 1093.267 Physical Exam Narrative: EXAM NARRATIVE: General: No acute distress, AO x3 HEENT: PERRLA, pupils bilaterally equal and reactive, NG to present to suction. Chest: Normal vesicular breath sounds, no added sounds, equal good air entry bilaterally CVS: S1-S2 regular, no murmurs, no tachycardia, no gallops, no rubs Abdomen: Soft, nontender, no organomegaly, bowel sounds present. Neuro: No focal deficits, no facial deformity, AO x3, power 5/5 in all limbs Urinary Catheter Management^: Santa: Cath Placed During This Visit: yes Urethral Indwelling: No Reason for Continuing Indwelling Catheter: Accurate Measurement of Urinary Output in Critically Ill Patients Urinary Catheter Date of Insertion: 01/07/20 Urinary Catheter Time of Insertion: 22:49 Data : 01/10/20 10:50 01/10/20 06:16 Micro: Microbiology 01/07/20 11:26 Urine Culture - Final Urine,Clean Catch A&P Assessment and plan (1) S/P right hemicolectomy: Colectomy secondary to necrosis Status: Acute Code(s): Z90.49 - Acquired absence of other specified parts of digestive tract (2) HTN (hypertension): Status: Acute Code(s): I10 - Essential (primary) hypertension (3) COPD (chronic obstructive pulmonary disease): Stable Status: Acute Code(s): J44.9 - Chronic obstructive pulmonary disease, unspecified (4) CAD (coronary artery disease): Stable Status: Acute Code(s): I25.10 - Atherosclerotic heart disease of [place] coronary artery without angina pectoris (5) Panic disorder: Status: Acute Code(s): F41.0 - Panic disorder [episodic paroxysmal anxiety] (6) Major depressive disorder, recurrent, in full remission: Status: Acute Code(s): F33.42 - Major depressive disorder, recurrent, in full remission Additional A&P Information Neuro: AO x3 today. I believe most of her toxic metabolic encephalopathy was due to sundowning and withdrawal from her long-term psychiatric medications. Continue with Parnate, baclofen at home dose through the NG tube. Since patient is back on these medications her mentation seems to have improved. GI: CT scan done suggestive of ischemic colitis. Patient is postop day 9 for hemicolectomy due to bowel ischemia and cholecystectomy. Continue patient on heparin drip at bedrest protocol keeping aPTT between 55-70. Check hemoglobin every 12 as per the protocol. Continue TPN for nutrition. Protonix Q12h. Bowel regimen as per Dr. Smith. ID: White count trending down further. Have remained afebrile. Most likely a reactionary elevation due to fresh bowel ischemia. Patient is on broad-spectrum antibiotic with vancomycin, Zosyn, Flagyl. We will continue the same antibiotics at renally dosed tll Cx finalized. Prelim remain negative. We will check stool studies if patient has a bowel movement to rule out C. difficile for bacterial antigens. Cardiovascular: Keep mean arterial pressure over 65. If required will start patient on levofed. For now blood pressures have maintained at a good rate. Continue on Lopressor 25 mg every 12 hourly through the NG tube to avoid reflex tachycardia. Patient's blood pressure and heart rate have remained stable on the current Lopressor dose. Pulmonary: Keep saturation over 92%. Oxygen supplementation as required. Continue with Advair, Flonase. Will add DuoNeb's. Renal: Function seems stable. Patient has hypokalemia mostly because of increased gastric secretions. Will replace with 80 mEq IV. Continue with IV hydration with NS with potassium replacement keeping overall fluid replacement with TPN and heprin drip to be around 200cc/hr as putting lasrge amount throught NGT. We will continue to monitor sodium levels if going high will change fluid to half NS. Repeat BMP at 6PM for K levels. Hematology: Hemoglobin stable. Continue with heparin drip for ischemic colitis and protonix Q12h. Surgical recommendations appreciated. Full code N.p.o. except ice chips Heparin drip will work for DVT prophylaxis as well. We will change from famotidine to Protonix 40 mg every 12 for PUD prophylaxis. Attestations Medical Necessity Statement*: Needs continued hospitalization for bowel ischemia and post operative care Critical Care Time: Critical Care Time (min): 80 Coding Level of Care Code Acute Bushing Press Operator for [facility] Fwd Diagnoses S/P right hemicolectomy Z90.49 HTN (hypertension) I10 COPD (chronic obstructive pulmonary disease) J44.9 CAD (coronary artery disease) I25.10 Panic disorder F41.0 Major depressive disorder, recurrent, in full remission F33.42
--- NOTE | 2020-01-10 16:30 | PC.NURSE ---
Spoke with Dr Ackerman, on unit, about pt's confusion today: Per the daughter, Veronica, the pt had received Baclofen before her last confused/unresponsive episode. This morning Pt c/o of leg cramps, in addition to the K-raul infusing, she received Baclofen too. The baclofen might be contributing the the confusion. Pt also did not rest well last night, per pt. just an hour or two of sleep.
--- NOTE | 2020-01-10 17:10 | PC.NURSE ---
Pt yelling get out of here! upon approaching her room, she yells it again. She then stated the men are back there spray painting and I do not want them too right now This nurse thinks she is overhearing the neighboring pt's and visitors conversation. Explained to her there were not men back there, it was the next room. She verbalized understanding but did not appear convinced at this time.
[2020-01-10 19:00] LABS: Partial Thromboplastin Time 54.6 SECONDS (23.9-36.7)
[2020-01-10 19:05] LABS: Anion Gap 14.1 (5-19); Blood Urea Nitrogen 25 mg/dL (8-23); Calcium 8.7 mg/dL (8.5-10.5); Carbon Dioxide 28 mmol/L (22-29); Chloride 106 mmol/L (98-107); Glomerular Filtration Rate 62.8 mL/min (90-130); Glucose 98 mg/dL (65-115); Osmolality Calculated 295 mOsm/kg (285-295); Potassium 4.1 mmol/L (3.5-5.1); Sodium 144 mmol/L (136-145)
[2020-01-10] MEDS: heparin 5,000 unit/mL INJ 1 mL 1700 UNIT IV (20:15)
[2020-01-10] MEDS: sennosides 8.6 mg Tablet 17.2 MG PO (21:40)
[2020-01-10] MEDS: atorvastatin 40 mg Tablet PO (21:40)
[2020-01-10] MEDS: sodium chlor 0.9% + KCl 20 mEq 20 MEQ/1,000 ML BAG 75 MEQ IV (21:45)
[2020-01-11] VITALS (17 sets, daily range): BP systolic 77–117; BP diastolic 43–71; PULSE 76–104; RESP 18–35; TEMP 36.6–37.2; O2SAT 91–96
[2020-01-11 01:24] LABS: Vancomycin Trough 8.7 ug/mL (10-15)
[2020-01-11 03:14] LABS: Partial Thromboplastin Time 56.9 SECONDS (23.9-36.7)
--- NOTE | 2020-01-11 03:20 | PC.NURSE ---
patient is still very confused states that a doctor named shravan was at bedside and gave her orders to remove her NG tube. patient also thinks she is in the back of a little red fire house. and refused to allow us to replace it screaming and yelling. called Dr benton and updated him on situation and NG output of less than 100ml and her passing gas and having a small BM. orders received for 2mg IV Haldol and to leave the tube out until later.
[2020-01-11] MEDS: haloperidol inj 5 mg/mL INJ 1 mL 2 MG IVP (03:28)
--- NOTE | 2020-01-11 03:43 | PC.PHAR ---
Vancomycin trough level is 8.7. Dosage is increased from 1500mg IVPB every 24 hours to 1000mg IVPB every 12 hours with another trough to be obtained before the third 1gm dose.
[2020-01-11] MEDS: LORazepam 2 mg/mL INJ 1 mL IVP (04:23)
[2020-01-11] MEDS: piperacillin-tazobactam 3.375 GM in sodium chloride 0.9% (plus) 50 ML IV ×3 (04:33→20:00)
[2020-01-11] MEDS: metroNIDAZOLE IV 500 MG/100 ML PREMIX 100 MG IV ×3 (04:34→17:25)
--- NOTE | 2020-01-11 04:58 | XR_ITS ---
WS: [id number] CHEST XRAY TECHNIQUE: Portable chest. CLINICAL INFORMATION: confirm NG placement COMPARISON: January 07, 2020 FINDINGS: Right PICC line with tip in the distal SVC. Enteric tube coiled in the distal esophagus with tip dire cted cephalad at the thoracic inlet. Recommend repositioning. Heart: Normal cardiac silhouette. Sternotomy and CABG. Mediastinal drains. Lungs: Mild chronic emphysematous changes. No acute pulmonary infiltrates. No focal pneumonia. Slight atelectasis left lung base. Bones: Normal visualized bony structures. XR/XR chest 1V portable [id number] IMPRESSION: 1. Enteric tube coiled in the distal esophagus with tip directed cephalad near the thoracic inlet. Recommend repositioning. 2. Slight atelectasis left lung base. 3. Sternotomy with CABG and mediastinal drain.
[2020-01-11] MEDS: pantoprazole 40 mg SDV IVP ×2 (06:14→17:25)
[2020-01-11 06:59] LABS: Basophils % 0.1 %; Eosinophils # 0.4 10^3/uL (0.0-0.8); Eosinophils % 2.7 %; Hematocrit 30.6 % (37.0-47.0); Hemoglobin 9.7 g/dL (11.5-15.3); Lymphocytes # 1.9 10^3/uL (0.8-4.8); Lymphocytes % 12.8 %; Mean Corpuscular HGB Conc 31.7 g/dL (30.0-36.0); Mean Corpuscular Hemoglobin 30.8 pg (28.0-34.0); Mean Corpuscular Volume 97.1 fL (81-99); Mean Platelet Volume 10.9 fL (7.4-10.4); Monocytes # 1.2 10^3/uL (0.2-0.9); Neutrophils # 11.3 10^3/uL (1.8-7.7); Neutrophils % 74.9 %; Nucleated Red Blood Cells % 0 %; Platelet Count 275 10^3/cmm (130-400); Red Blood Count 3.15 10^6/uL (4.1-5.3); Red Cell Distribution Width 13.2 % (12.1-15.1); White Blood Count 15.1 10^3/uL (4.0-10.0)
--- NOTE | 2020-01-11 07:11 | PM.PN ---
Subjective Subjective: Interval history: Patient still very confused this morning.. She is having some problems with the baclofen. No chest pain or shortness of breath with identified. Blood work seems to be improving. She appears to be having some bowel movements now. Medications: Reviewed: Yes Vitals/I&O/Wt Last Vital Signs Temp 98.6 F 01/11/20 06:17 Pulse 102 H 01/11/20 06:00 Resp 27 H 01/11/20 06:00 BP 114/62 01/11/20 06:00 Pulse Ox 96 01/11/20 04:00 01/10/20 01/11/20 01/11/20 22:59 06:59 14:59 Intake Total 1537.150 / 3511.667 100 / 3511.667 Output Total 1350 / 3050 700 / 3050 Balance 187.150 / 461.667 -600 / 461.667 Physical Exam Narrative: EXAM NARRATIVE: General: No acute distress, Alert. Well nourished. Very confused this morning. Heart: Regular rate and rhythm. No murmurs, rubs or gallops. Normal capillary refill. Lungs: Some expiratory rhonchi and wheezes noted. No significant crackles. Abdomen: Some bowel sounds noted but relatively quiet. No tenderness.. No hepatosplenomegaly. No gaurding. Extremities: No clubbing, cyanosis, or edema. Negative Chepe's Urinary Catheter Management^: Santa: Cath Placed During This Visit: yes Urethral Indwelling: No Reason for Continuing Indwelling Catheter: Accurate Measurement of Urinary Output in Critically Ill Patients Urinary Catheter Date of Insertion: 01/07/20 Urinary Catheter Time of Insertion: 22:49 Data : 01/12/20 04:50 01/11/20 06:40 Micro: Microbiology 01/11/20 00:35 Stool Lactoferrin - Final Stool A&P Assessment and plan (1) S/P right hemicolectomy: -Postop day 7. Neuro: [Patient was struggling with some severe encephalopathy last night and this morning. [place] to be made worse by baclofen that she received couple days ago.. Suspect this see this continue to improve as the baclofen clears..] Electrolytes: [Stable at this time.] Hematology: [Markedly elevated white blood cell count consistent with infection. This is improving. Suspect partially from pneumonia and also from ischemic bowel. Full etiology of this is unclear. Hemoglobin is stable though.] Cardiology: [Blood pressures doing much better. Heart rates okay..] Pulmonary: [Appears to be a left lower quadrant pneumonia on CT scan. She is now weaned down to room air. Doing much better.] GI: [Patient still appears to have an ileus versus an obstruction. CT shows an ischemic bowel. She is currently on heparin. Overall seems to be improving though. Continue TPN..] Renal: [Renal function is improved. She is having good urine output.] ID: [White blood cell counts improving fevers have improved as well. Pneumonia appears to be clearing. Still struggling with her ileus and ischemic colon.] General: [Patient will continue with DVT and GI prophylaxis.] Status: Acute Code(s): Z90.49 - Acquired absence of other specified parts of digestive tract (2) CAD (coronary artery disease): Stable. No acute process. Status: Acute Code(s): I25.10 - Atherosclerotic heart disease of [place] coronary artery without angina pectoris (3) COPD (chronic obstructive pulmonary disease): Stable. Continue incentive spirometry and monitor for worsening. Continue with respiratory therapy. Status: Acute Code(s): J44.9 - Chronic obstructive pulmonary disease, unspecified (4) Major depressive disorder, recurrent, in full remission: -Continue Parnate . Status: Acute Code(s): F33.42 - Major depressive disorder, recurrent, in full remission Attestations Medical Necessity Statement*: Patient is a 64-year-old female with status post laparoscopic cholecystectomy and partial colectomy with a complicated postoperative course requiring continued inpatient treatment. Coding Level of Care Code Acute Safety Deposit Supervisor for [facility] Fwd Diagnoses S/P right hemicolectomy Z90.49 CAD (coronary artery disease) I25.10 COPD (chronic obstructive pulmonary disease) J44.9 Major depressive disorder, recurrent, in full remission F33.42
[2020-01-11 07:19] LABS: Alanine Aminotransferase 15 U/L (0-33); Albumin Level 2.1 g/dL (3.5-5.2); Alkaline Phosphatase 78 IU/L (35-105); Anion Gap 16.8 (5-19); Aspartate Amino Transferase 21 U/L (0-32); Blood Urea Nitrogen 18 mg/dL (8-23); Calcium 8.1 mg/dL (8.5-10.5); Carbon Dioxide 21 mmol/L (22-29); Chloride 104 mmol/L (98-107); Globulin 2.6 g/dL (1.3-4.6); Glucose 122 mg/dL (65-115); Potassium 3.8 mmol/L (3.5-5.1); Sodium 138 mmol/L (136-145); Total Bilirubin 0.2 mg/dL (0.15-1.2); Total Protein 4.7 g/dL (6.6-8.7)
[2020-01-11] MEDS: nicotine 21 mg Patch 1 PATCH TRANSDERMA (07:59)
[2020-01-11] MEDS: magnesium citrate Btl 296 mL NG-TUBE (07:59)
[2020-01-11] MEDS: potassium chloride oral liq 20 mEq/15 mL UDC NG-TUBE (08:00)
[2020-01-11] MEDS: multivitamin therapeutic Tablet 1 TAB PO (08:00)
[2020-01-11] MEDS: docusate sodium 100 mg Capsule PO (08:00)
[2020-01-11] MEDS: aspirin 81 mg Chew Tablet PO (08:00)
[2020-01-11] MEDS: metoprolol tartrate 25 mg Tablet PO (08:00)
[2020-01-11] MEDS: ipratropium-albuterol 3 mL Neb INHALATION (08:01)
[2020-01-11] MEDS: AA-Dex 5%-20% w/Lytes 1,000 ML with multivitamin inj 5 ML 83 ML IV (08:31)
--- NOTE | 2020-01-11 08:31 | P.PN_ITS ---
Subjective Subjective: Interval history: Patient was a bit confused last night, pulled out her NG tube though she did have a large bowel movement this morning. Denies any abdominal pain nausea or vomiting Medications: Reviewed: Yes Vitals/I&O/Wt Last Vital Signs Temp 98.6 F 01/11/20 06:17 Pulse 101 H 01/11/20 07:24 Resp 18 01/11/20 07:24 BP 114/62 01/11/20 06:00 Pulse Ox 93 01/11/20 07:24 01/10/20 01/11/20 01/11/20 22:59 06:59 14:59 Intake Total 1537.150 / 3511.667 100 / 3511.667 Output Total 1350 / 3050 700 / 3050 Balance 187.150 / 461.667 -600 / 461.667 Physical Exam Narrative: EXAM NARRATIVE: Abdomen: Soft, nondistended, nontender, incisions healing well, NG tube to suction Urinary Catheter Management^: Santa: Cath Placed During This Visit: yes Urethral Indwelling: No Reason for Continuing Indwelling Catheter: Accurate Measurement of Urinary Output in Critically Ill Patients Urinary Catheter Date of Insertion: 01/07/20 Urinary Catheter Time of Insertion: 22:49 Data : 01/11/20 06:40 01/11/20 06:40 Micro: Microbiology 01/11/20 00:35 Stool Lactoferrin - Final Stool A&P Assessment and plan (1) S/P right hemicolectomy: With postop ileus, NG output is trending down. Patient is currently on heparin for suspected ischemic bowel though she has no evidence of peritonitis and her leukocytosis has been trending down. At this point continue with IV vancomycin, Zosyn and Flagyl. Continue heparin drip for now. Will give 1 bekah ttle of magnesium citrate and clamp NG tube today leave Santa in for now. Leave Santa catheter in for now Hopefully she can be transferred to the floor later this evening Status: Acute Code(s): Z90.49 - Acquired absence of other specified parts of digestive tract Attestations Medical Necessity Statement*: Postop ileus status post right hemicolectomy with ischemic bowel requiring continued inpatient stay. Coding Level of Care Code Acute Pneumatic Deicer Inspector for [facility] Fwd Diagnoses S/P right hemicolectomy Z90.49
[2020-01-11] MEDS: ascorbic acid 500 mg Tablet PO (09:50)
[2020-01-11 10:33] LABS: Partial Thromboplastin Time 78.2 SECONDS (23.9-36.7)
[2020-01-11] MEDS: heparin drip 25,000 UNIT/500 ML PREMIX 52.6 UNIT IV (11:50)
[2020-01-11] MEDS: lactulose oral liq 20 gm/30 mL UDC 10 GM PO (14:13)
[2020-01-11] MEDS: vancomycin 1,000 MG in sodium chloride 0.9% 250 ML 250 MG IV (14:21)
[2020-01-11 16:58] LABS: Partial Thromboplastin Time 62.2 SECONDS (23.9-36.7)
--- NOTE | 2020-01-11 17:21 | PC.CHAP ---
Pastoral Care Encounter/Spiritual Assessment Type of Contact [] Declined lithograph printer visit [] Patient/Family/Request visit [] Outpatient visit [] Follow-up visit [] Physician referral [] Code/Alert [x] Routine visit [] Staff referral [] Actively dying [] Patient sleeping [] Family support [] [] Out of room [] Palliative care [] [] Receiving care in room [] Pre-surgical visit [] Trauma [x] Long length of stay [x] ICU visit [] Other: Relational/Emotional Strength [] Patient feels connected with others/family/visitors/staff [] Distress [] Loneliness/isolation [] Abandonment Spirituality of Patient [] Person of Radha [] Attends Rastafari of their Radha [] Believes in Prayer [] Reads Bible or Mu-Ism materials [] There are Spiritual issues to be addressed Community Integration Specialist Interventions [] Prayer [] Active listening [] Non-anxious presence [] Spiritual/emotional support [] Crisis/trauma care [] Spiritual counseling [] Bereavement support [] Provided bereavement packet [] Provided Bible/devotional materials [] Provided toy/stuffed animal, coloring book to patient or family member [] Provided Communion [] Anointing/[place] [] Salvation [] Completed spiritual assessment [] Other: Impact on Illness or Injury [] Angry [] Fearful [] Anxious [] Often cries [] Exhaustion [] Unable to work [] Unable to attend sabianist [] Unable to walk/stand [] Unable to read [] Unable to drive [] Unable to eat/drink [] Unable to sleep [] Unable to be with family [] Patient intubated [] Other: Summary Patient stated she did not need anything from the chaplains and she declined prayer. Time spent with patient 3 minutes
[2020-01-11] MEDS: sodium chlor 0.9% + KCl 20 mEq 20 MEQ/1,000 ML BAG 75 MEQ IV (17:34)
[2020-01-11] MEDS: dextrose 5%-ns + KCl 20 20 MEQ/1,000 ML BAG 75 MEQ IV (20:01)
[2020-01-11] MEDS: LORazepam 2 mg/mL INJ 1 mL 1 MG IVP (20:46)
[2020-01-11] MEDS: atorvastatin 40 mg Tablet PO (20:46)
[2020-01-11] MEDS: ondansetron 2 mg/ML SDV 2 mL 4 MG IVP (22:31)
[2020-01-12] VITALS (14 sets, daily range): BP systolic 95–111; BP diastolic 56–73; PULSE 67–90; RESP 16–31; TEMP 36.4; O2SAT 92–96
[2020-01-12] MEDS: metroNIDAZOLE IV 500 MG/100 ML PREMIX 100 MG IV ×2 (00:11→04:46)
[2020-01-12] MEDS: ipratropium-albuterol 3 mL Neb INHALATION ×4 (00:44→21:32)
[2020-01-12 01:20] LABS: Vancomycin Trough 10.9 ug/mL (10-15)
[2020-01-12] MEDS: vancomycin 1,000 MG in sodium chloride 0.9% 250 ML 250 MG IV (02:12)
[2020-01-12] MEDS: piperacillin-tazobactam 3.375 GM in sodium chloride 0.9% (plus) 50 ML IV ×2 (03:22→11:40)
[2020-01-12] MEDS: heparin drip 25,000 UNIT/500 ML PREMIX 52.6 UNIT IV (03:24)
[2020-01-12] MEDS: LORazepam 2 mg/mL INJ 1 mL 1 MG IVP (04:43)
[2020-01-12 05:09] LABS: Platelet Count 435 10^3/cmm (130-400)
[2020-01-12 06:14] LABS: Partial Thromboplastin Time 52.7 SECONDS (23.9-36.7)
[2020-01-12] MEDS: heparin 5,000 unit/mL INJ 1 mL 5000 UNIT IV (06:47)
--- NOTE | 2020-01-12 06:53 | PM.PN ---
Subjective Subjective: Interval history: Patient appears a lot better this morning. No chest pain. No fevers or chills. She is having more gas and some liquidy bowel movements apparently. She has had her NG tube clamped all night and has not been nauseated this morning. Does not appear distended. She is probably ready to advance diet. She is more alert and oriented this morning. Little confusion last night per nursing but much better than the night before. Medications: Reviewed: Yes Vitals/I&O/Wt Last Vital Signs Temp 97.8 F 01/11/20 14:00 Pulse 90 01/12/20 06:00 Resp 24 H 01/12/20 06:00 BP 111/67 01/12/20 06:00 Pulse Ox 96 01/12/20 06:00 01/11/20 01/11/20 01/12/20 14:59 22:59 06:59 Intake Total 2275.00 / 4225.00 1200 / 4225.00 750 / 4225.00 Output Total 200 / 1800 1000 / 1800 600 / 1800 Balance 2075.00 / 2425.00 200 / 2425.00 150 / 2425.00 Physical Exam Narrative: EXAM NARRATIVE: General: No acute distress, Alert. Well nourished. Sitting in a chair and very appropriate and alert and oriented this morning.. Heart: Regular rate and rhythm. No murmurs, rubs or gallops. Normal capillary refill. Lungs: Some expiratory rhonchi and wheezes noted. No significant crackles. Abdomen: Some bowel sounds noted but relatively quiet. No tenderness.. No hepatosplenomegaly. No gaurding. Extremities: No clubbing, cyanosis, or edema. Negative Chepe's Urinary Catheter Management^: Santa: Cath Placed During This Visit: yes Urethral Indwelling: No Reason for Continuing Indwelling Catheter: Accurate Measurement of Urinary Output in Critically Ill Patients Urinary Catheter Date of Insertion: 01/07/20 Urinary Catheter Time of Insertion: 22:49 Data : 01/12/20 04:50 01/11/20 06:40 Micro: Microbiology 01/11/20 00:35 Stool Lactoferrin - Final Stool Enteric Pathogens (PCR) - Final Parasite Antigen Panel - Final A&P Assessment and plan (1) S/P right hemicolectomy: -Postop day 7. Neuro: [Encephalopathy most likely secondary to multiple etiologies. Clearly had a reaction to baclofen. Think she also struggles when her Parnate held as well. This appears to be cleared at this time..] Electrolytes: [Stable at this time.] Hematology: [Stable] Cardiology: [Blood pressures doing much better. Heart rates okay..] Pulmonary: [Pneumonia clinically resolved. On room air. ] GI: [Ileus seems to be resolving. She is having good flatus and some bowel movements. NG tube clamped overnight with no nausea this morning. Suspect will be able to pull the NG tube today and advance her diet hopefully..] Renal: [Renal function is improved. She is having good urine output.] ID: [White blood cell counts improving fevers have improved as well. Pneumonia appears to be clearing. Improving with her ileus and ischemic colon. Repeat her labs in the morning.] General: [Patient will continue with DVT and GI prophylaxis, she should be good to transfer to the floor today. Plan for rehab on discharge..] Status: Acute Code(s): Z90.49 - Acquired absence of other specified parts of digestive tract (2) CAD (coronary artery disease): Stable. No acute process. Status: Acute Code(s): I25.10 - Atherosclerotic heart disease of [place] coronary artery without angina pectoris (3) COPD (chronic obstructive pulmonary disease): Stable. Continue incentive spirometry and monitor for worsening. Continue with respiratory therapy. Status: Acute Code(s): J44.9 - Chronic obstructive pulmonary disease, unspecified (4) Major depressive disorder, recurrent, in full remission: -Continue Parnate . Status: Acute Code(s): F33.42 - Major depressive disorder, recurrent, in full remission Attestations Medical Necessity Statement*: 64-year-old female with complicated postoperative course requiring continued inpatient treatment and monitoring. Coding Level of Care Code Acute Captain/Airline Pilot for [facility] Fw Diagnoses S/P right hemicolectomy Z90.49 CAD (coronary artery disease) I25.10 COPD (chronic obstructive pulmonary disease) J44.9 Major depressive disorder, recurrent, in full remission F33.42
--- NOTE | 2020-01-12 09:00 | PC.SOCIAL ---
IMM Updated Page 2 of IMM updated and given to patient. Initialed, dated, and timed and placed back in chart.
[2020-01-12] MEDS: aspirin 81 mg Chew Tablet PO (09:09)
[2020-01-12] MEDS: pantoprazole 40 mg SDV IVP ×2 (09:09→18:40)
[2020-01-12] MEDS: ascorbic acid 500 mg Tablet PO (09:10)
[2020-01-12] MEDS: multivitamin therapeutic Tablet 1 TAB PO (09:10)
[2020-01-12] MEDS: metoprolol tartrate 25 mg Tablet PO (09:10)
[2020-01-12] MEDS: potassium chloride oral liq 20 mEq/15 mL UDC NG-TUBE (09:10)
[2020-01-12] MEDS: nicotine 21 mg Patch 1 PATCH TRANSDERMA (09:11)
[2020-01-12] MEDS: dextrose 5%-ns + KCl 20 20 MEQ/1,000 ML BAG 75 MEQ IV (09:14)
--- NOTE | 2020-01-12 12:14 | PM.PN ---
Subjective Subjective: Interval history: Patient had multiple bowel movements yesterday, no nausea or vomiting, NG tube is clamped Vitals/I&O/Wt Last Vital Signs Temp 97.8 F 01/11/20 14:00 Pulse 85 01/12/20 08:12 Resp 16 01/12/20 08:08 BP 111/67 01/12/20 06:00 Pulse Ox 95 01/12/20 08:08 01/11/20 01/12/20 01/12/20 22:59 06:59 14:59 Intake Total 1200 / 4225.00 750 / 4225.00 1041.25 / 1041.25 Output Total 1000 / 1800 600 / 1800 Balance 200 / 2425.00 150 / 2425.00 1041.25 / 1041.25 Physical Exam Narrative: EXAM NARRATIVE: Abdomen: Soft, nondistended, minimally tender, incision clean dry and intact, NG tube is clamped Urinary Catheter Management^: Santa: Cath Placed During This Visit: yes Urethral Indwelling: No Reason for Continuing Indwelling Catheter: Accurate Measurement of Urinary Output in Critically Ill Patients Urinary Catheter Date of Insertion: 01/07/20 Urinary Catheter Time of Insertion: 22:49 Data : 01/12/20 04:50 01/11/20 06:40 Micro: Microbiology 01/11/20 00:35 Stool Lactoferrin - Final Stool Enteric Pathogens (PCR) - Final Parasite Antigen Panel - Final A&P Assessment and plan (1) S/P right hemicolectomy: Tolerating full liquid diet, if she does well later today remove NG tube Continue heparin drip, transition to oral anticoagulation on discharge Ambulate with physical therapy DC Santa Advance to GI soft diet tomorrow Add Ensure supplements and DC TPN tomorrow Maintain aggressive bowel regimen Status: Acute Code(s): Z90.49 - Acquired absence of other specified parts of digestive tract Attestations Medical Necessity Statement*: Patient status post colectomy with postop ileus requiring continued inpatient stay due to altered mental status and to ensure resolution of ileus Coding Level of Care Code Acute Court Stenographer for Chg Fwd Diagnoses S/P right hemicolectomy Z90.49
[2020-01-12 17:39] LABS: Partial Thromboplastin Time 57.6 SECONDS (23.9-36.7)
[2020-01-12] MEDS: heparin drip 25,000 UNIT/500 ML PREMIX 56 UNIT IV (20:30)
[2020-01-12] MEDS: atorvastatin 40 mg Tablet PO (22:01)
[2020-01-12] MEDS: sennosides 8.6 mg Tablet 17.2 MG PO (22:01)
[2020-01-12] MEDS: metroNIDAZOLE 500 MG Tablet PO (22:02)
[2020-01-13] VITALS (10 sets, daily range): BP systolic 100–144; BP diastolic 63–84; PULSE 78–112; RESP 16–32; TEMP 36.3–36.7; O2SAT 89–97
[2020-01-13] MEDS: levoFLOXacin 750 mg Tablet PO (06:00)
[2020-01-13] MEDS: pantoprazole 40 mg SDV IVP ×2 (06:00→17:33)
[2020-01-13 06:01] LABS: Basophils # 0.1 10^3/uL (0.0-0.1); Basophils % 0.5 %; Eosinophils # 0.3 10^3/uL (0.0-0.8); Eosinophils % 2.1 %; Hematocrit 31.2 % (37.0-47.0); Hemoglobin 9.1 g/dL (11.5-15.3); Lymphocytes # 2.1 10^3/uL (0.8-4.8); Lymphocytes % 15.9 %; Mean Corpuscular HGB Conc 29.2 g/dL (30.0-36.0); Mean Corpuscular Hemoglobin 30.6 pg (28.0-34.0); Mean Corpuscular Volume 105.1 fL (81-99); Mean Platelet Volume 10.5 fL (7.4-10.4); Monocytes % 7.3 %; Neutrophils # 9.5 10^3/uL (1.8-7.7); Neutrophils % 72.2 %; Nucleated Red Blood Cells % 0 %; Platelet Count 435 10^3/cmm (130-400); Red Blood Count 2.97 10^6/uL (4.1-5.3); Red Cell Distribution Width 13.2 % (12.1-15.1); White Blood Count 13.2 10^3/uL (4.0-10.0)
[2020-01-13 06:11] LABS: Partial Thromboplastin Time 52.9 SECONDS (23.9-36.7)
[2020-01-13 06:19] LABS: Alanine Aminotransferase 13 U/L (0-33); Albumin Level 1.9 g/dL (3.5-5.2); Alkaline Phosphatase 71 IU/L (35-105); Anion Gap 14.1 (5-19); Aspartate Amino Transferase 18 U/L (0-32); Blood Urea Nitrogen 15 mg/dL (8-23); Calcium 8.8 mg/dL (8.5-10.5); Carbon Dioxide 17 mmol/L (22-29); Chloride 109 mmol/L (98-107); Chol HDL Ratio 2.95 mg/dL (0.0-4.40); Cholesterol 62 mg/dL (0-200); Globulin 3.9 g/dL (1.3-4.6); Glucose 112 mg/dL (65-115); HDL Cholesterol 21 mg/dL (60-100); LDL Cholesterol Calculated 21 mg/dL (50-129); Magnesium 2.2 mg/dL (1.7-2.3); Potassium 4.1 mmol/L (3.5-5.1); Sodium 136 mmol/L (136-145); Total Bilirubin 0.2 mg/dL (0.15-1.2); Total Protein 5.8 g/dL (6.6-8.7); Triglycerides 100 mg/dL (0-150)
[2020-01-13 06:38] LABS: Phosphorus 2.8 mg/dL (2.5-4.5)
[2020-01-13] MEDS: heparin 5,000 unit/mL INJ 1 mL 5000 UNIT IV (06:45)
[2020-01-13] MEDS: aspirin 81 mg Chew Tablet PO (08:50)
[2020-01-13] MEDS: metroNIDAZOLE 500 MG Tablet PO ×3 (08:50→21:17)
[2020-01-13] MEDS: potassium chloride oral liq 20 mEq/15 mL UDC NG-TUBE (08:51)
[2020-01-13] MEDS: ascorbic acid 500 mg Tablet PO (08:51)
[2020-01-13] MEDS: multivitamin therapeutic Tablet 1 TAB PO (08:51)
[2020-01-13] MEDS: cholecalciferol (vitamin D3) 1,000 unit Tablet 2000 UNIT PO (08:51)
[2020-01-13] MEDS: metoprolol tartrate 25 mg Tablet PO ×2 (08:51→17:33)
[2020-01-13] MEDS: nicotine 21 mg Patch 1 PATCH TRANSDERMA (08:52)
--- NOTE | 2020-01-13 10:00 | PC.NURSE ---
PATIENT'S DAUGHTER BENIGNO HERE VISITING AND VOICED CONCERNS THAT PATIENT HAS BEEN CONFUSED AND HEARING/SEEING THINGS. SHE STATES THAT PATIENT HAD MESSAGED HER ALL NIGHT STATING THE COPELAND WERE MELTING, THAT THE STAFF OWNED HER. AND SHE WAS SEEING INDIGENOUS PEOPLE THIS NURSE VOICED CONCERNS TO DR. PATIÑO WHO STATED HE WOULD BE BACK AROUND NOON TO SEE PATIENT, DAUGHTER STATED SHE WOULD BE HERE TO SPEAK WITH HIM WELL.
--- NOTE | 2020-01-13 11:45 | P.PN_ITS ---
Subjective Subjective: Interval history: Denies abdominal pain, nausea, vomiting, tolerating GI soft diet, had bowel movements Vitals/I&O/Wt Last Vital Signs Temp 98.1 F 01/13/20 11:11 Pulse 81 01/13/20 11:11 Resp 20 H 01/13/20 11:11 BP 112/69 01/13/20 11:11 Pulse Ox 97 01/13/20 11:11 01/12/20 01/13/20 01/13/20 22:59 06:59 14:59 Intake Total 240 / 4235.05 1044.4 / 4235.05 120 / 120 Output Total 550 / 550 Balance 240 / 3685.05 494.4 / 3685.05 120 / 120 Physical Exam Narrative: EXAM NARRATIVE: Abdomen: Soft, nontender, nondistended incisions healing well Urinary Catheter Management^: Santa: Cath Placed During This Visit: yes Urethral Indwelling: No Reason for Continuing Indwelling Catheter: Accurate Measurement of Urinary Output in Critically Ill Patients Urinary Catheter Date of Insertion: 01/07/20 Urinary Catheter Time of Insertion: 22:49 Data : 01/13/20 04:47 01/13/20 04:47 Micro: Microbiology 01/07/20 23:00 Blood Culture - Final Blood NO GROWTH AFTER 5 DAYS 01/07/20 22:50 Blood Culture - Final Blood NO GROWTH AFTER 5 DAYS A&P Assessment and plan (1) S/P right hemicolectomy: Patient able to go to rehab from a surgical standpoint. She can go home on Levaquin 500 p.o. daily and Flagyl 5 8 p.o. 3 times daily for 5 days. Protonix 40 twice daily for GI prophylaxis since patient will be on anticoagulation. Discharged home on Senna S twice daily Patient will need to be transitioned to Lovenox and started on coumadin [facility] 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
[2020-01-13] MEDS: heparin drip 25,000 UNIT/500 ML PREMIX 56 UNIT IV (13:06)
--- NOTE | 2020-01-13 14:26 | PM.PN ---
Subjective Subjective: Interval history: Patient overall seems to be doing better. Had some bowel movements. Tolerating full liquid diet with no difficulties. No fevers or chills. No chest pain or shortness of breath. She still had some confusion overnight but doing much better with that. Alert and oriented this morning. Medications: Reviewed: Yes Vitals/I&O/Wt Last Vital Signs Temp 98.1 F 01/13/20 11:11 Pulse 81 01/13/20 11:11 Resp 20 H 01/13/20 11:11 BP 112/69 01/13/20 11:11 Pulse Ox 97 01/13/20 11:11 01/12/20 01/13/20 01/13/20 22:59 06:59 14:59 Intake Total 240 / 4735.05 1544.4 / 4735.05 120 / 120 Output Total 550 / 550 300 / 300 Balance 240 / 4185.05 994.4 / 4185.05 -180 / -180 Physical Exam Narrative: EXAM NARRATIVE: General: No acute distress, Alert. Well nourished. Sitting in a chair and very appropriate and alert and oriented this morning.. Heart: Regular rate and rhythm. No murmurs, rubs or gallops. Normal capillary refill. Lungs: Some expiratory rhonchi and wheezes noted. No significant crackles. Abdomen: Some bowel sounds noted but relatively quiet. No tenderness.. No hepatosplenomegaly. No gaurding. Extremities: No clubbing, cyanosis, or edema. Negative Chepe's Urinary Catheter Management^: Santa: Cath Placed During This Visit: yes Urethral Indwelling: No Reason for Continuing Indwelling Catheter: Accurate Measurement of Urinary Output in Critically Ill Patients Urinary Catheter Date of Insertion: 01/07/20 Urinary Catheter Time of Insertion: 22:49 Data : 01/13/20 04:47 01/13/20 04:47 Micro: Microbiology 01/07/20 23:00 Blood Culture - Final Blood NO GROWTH AFTER 5 DAYS 01/07/20 22:50 Blood Culture - Final Blood NO GROWTH AFTER 5 DAYS A&P Assessment and plan (1) S/P right hemicolectomy: -Seem to be doing quite better from the standpoint. Status: Acute Code(s): Z90.49 - Acquired absence of other specified parts of digestive tract (2) CAD (coronary artery disease): Stable. No acute process. Status: Acute Code(s): I25.10 - Atherosclerotic heart disease of [place] coronary artery without angina pectoris (3) COPD (chronic obstructive pulmonary disease): Stable. Continue incentive spirometry and monitor for worsening. Continue with respiratory therapy. Status: Acute Code(s): J44.9 - Chronic obstructive pulmonary disease, unspecified (4) Major depressive disorder, recurrent, in full remission: -Continue Parnate . Still having some occasional encephalopathy but pretty mild at this time. I think this will continue to improve as she is able to be more consistent with her Parnate. Status: Acute Code(s): F33.42 - Major depressive disorder, recurrent, in full remission (5) Ischemic bowel disease: Will need to continue with anticoagulation. Status: Acute Code(s): K55.9 - Vascular disorder of intestine, unspecified Attestations Medical Necessity Statement*: Patient is improving and able to be discharged to rehab at this time. We are waiting on placement.Patient is improving and able to be discharged to rehab at this time. We are waiting on placement. 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
[2020-01-13] MEDS: ipratropium-albuterol 3 mL Neb INHALATION (15:01)
[2020-01-13 16:55] LABS: Partial Thromboplastin Time 57.8 SECONDS (23.9-36.7)
[2020-01-13] MEDS: sodium chlor 0.9% + KCl 20 mEq 20 MEQ/1,000 ML BAG 75 MEQ IV (21:06)
[2020-01-13] MEDS: sennosides 8.6 mg Tablet 17.2 MG PO (21:16)
[2020-01-13] MEDS: atorvastatin 40 mg Tablet PO (21:17)
[2020-01-14] VITALS (12 sets, daily range): BP systolic 97–106; BP diastolic 6–69; PULSE 82–106; RESP 16–28; TEMP 36.4–36.9; O2SAT 92–96
[2020-01-14] MEDS: heparin drip 25,000 UNIT/500 ML PREMIX 56 UNIT IV (03:10)
[2020-01-14] MEDS: lactulose oral liq 20 gm/30 mL UDC 10 GM PO ×2 (03:11→17:17)
[2020-01-14] MEDS: levoFLOXacin 750 mg Tablet PO (06:03)
[2020-01-14] MEDS: pantoprazole 40 mg SDV IVP ×2 (06:03→19:39)
--- NOTE | 2020-01-14 06:40 | PM.PN ---
Subjective Subjective: Interval history: Patient had a good night last night. She rested well. She had no confusion or encephalopathy. Was alert and oriented all night and no paranoia. She is still having some small bowel movements. No nausea or vomiting. Tolerated her diet well. No fevers or chills. No chest pain or shortness of breath. She was not discharged yesterday because of difficulty finding placement. Anticipate they will be a rehab bed available today. Medications: Reviewed: Yes Vitals/I&O/Wt Last Vital Signs Temp 98.5 F 01/14/20 04:00 Pulse 91 01/14/20 04:00 Resp 18 01/14/20 04:00 BP 101/6 01/14/20 04:00 Pulse Ox 94 01/14/20 04:00 01/13/20 01/13/20 01/14/20 14:59 22:59 06:59 Intake Total 120 / 920 800 / 920 Output Total 300 / 2630 1520 / 2630 810 / 2630 Balance -180 / -1710 -720 / -1710 -810 / -1710 Physical Exam Narrative: EXAM NARRATIVE: General: No acute distress, Alert. Well nourished. Sitting in a chair and very appropriate and alert and oriented this morning.. Heart: Regular rate and rhythm. No murmurs, rubs or gallops. Normal capillary refill. Lungs: Some expiratory rhonchi and wheezes noted. No significant crackles. Abdomen: Some bowel sounds noted but relatively quiet. No tenderness.. No hepatosplenomegaly. No gaurding. Extremities: No clubbing, cyanosis, or edema. Negative Chepe's Urinary Catheter Management^: Santa: Cath Placed During This Visit: yes Urethral Indwelling: No Reason for Continuing Indwelling Catheter: Accurate Measurement of Urinary Output in Critically Ill Patients Urinary Catheter Date of Insertion: 01/07/20 Urinary Catheter Time of Insertion: 22:49 Data : 01/13/20 04:47 01/13/20 04:47 A&P Assessment and plan (1) S/P right hemicolectomy: -Seem to be doing quite better from the standpoint. Agree with discharge per Dr. Smith once a bed is available at rehab. Status: Acute Code(s): Z90.49 - Acquired absence of other specified parts of digestive tract (2) CAD (coronary artery disease): Stable. No acute process. Status: Acute Code(s): I25.10 - Atherosclerotic heart disease of [place] coronary artery without angina pectoris (3) COPD (chronic obstructive pulmonary disease): Stable. Continue incentive spirometry and monitor for worsening. Continue with respiratory therapy. Status: Acute Code(s): J44.9 - Chronic obstructive pulmonary disease, unspecified (4) Major depressive disorder, recurrent, in full remission: -Continue Parnate . Seems to be better with getting back on her home regimen. Encephalopathy seems to be resolved. Status: Acute Code(s): F33.42 - Major depressive disorder, recurrent, in full remission (5) Ischemic bowel disease: Will need to continue with anticoagulation. Status: Acute Code(s): K55.9 - Vascular disorder of intestine, unspecified Attestations Medical Necessity Statement*: Patient should be discharged today. 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
[2020-01-14 07:19] LABS: Partial Thromboplastin Time 71.9 SECONDS (23.9-36.7)
--- NOTE | 2020-01-14 07:45 | PM.PN ---
Subjective Subjective: Interval history: Patient was less confused yesterday, tolerating GI soft diet, had bowel movements Vitals/I&O/Wt Last Vital Signs Temp 98.5 F 01/14/20 04:00 Pulse 91 01/14/20 04:00 Resp 18 01/14/20 04:00 BP 101/6 01/14/20 04:00 Pulse Ox 94 01/14/20 04:00 01/13/20 01/14/20 01/14/20 22:59 06:59 14:59 Intake Total 800 / 920 Output Total 1520 / 2630 810 / 2630 Balance -720 / -1710 -810 / -1710 Physical Exam Narrative: EXAM NARRATIVE: Abdomen: Soft, tender, non-incisions healing well, simone removed Urinary Catheter Management^: Santa: Cath Placed During This Visit: yes Urethral Indwelling: No Reason for Continuing Indwelling Catheter: Accurate Measurement of Urinary Output in Critically Ill Patients Urinary Catheter Date of Insertion: 01/07/20 Urinary Catheter Time of Insertion: 22:49 Data : 01/13/20 04:47 01/13/20 04:47 A&P Assessment and plan (1) S/P right hemicolectomy: Doing well, postop ileus is resolved hopefully she can go to longterm in the next 24 hours, will need to stay on Coumadin with bridge therapy using Lovenox. 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
[2020-01-14] MEDS: ipratropium-albuterol 3 mL Neb INHALATION ×3 (08:48→21:13)
--- NOTE | 2020-01-14 09:40 | PC.SOCIAL ---
IMM Update Pg 2 of IMM given and explained to patient who verbalized understanding. Copy provided to patient.
[2020-01-14] MEDS: metroNIDAZOLE 500 MG Tablet PO ×3 (10:05→21:35)
[2020-01-14] MEDS: docusate sodium 100 mg Capsule PO ×2 (10:05→17:20)
[2020-01-14] MEDS: aspirin 81 mg Chew Tablet PO (10:05)
[2020-01-14] MEDS: cholecalciferol (vitamin D3) 1,000 unit Tablet 2000 UNIT PO (10:05)
[2020-01-14] MEDS: metoprolol tartrate 25 mg Tablet PO (10:05)
[2020-01-14] MEDS: multivitamin therapeutic Tablet 1 TAB PO (10:06)
[2020-01-14] MEDS: potassium chloride oral liq 20 mEq/15 mL UDC NG-TUBE (10:06)
[2020-01-14] MEDS: ascorbic acid 500 mg Tablet PO (10:06)
[2020-01-14] MEDS: nicotine 21 mg Patch 1 PATCH TRANSDERMA (10:07)
[2020-01-14] MEDS: heparin drip 25,000 UNIT/500 ML PREMIX 35 UNIT IV (21:32)
[2020-01-14] MEDS: atorvastatin 40 mg Tablet PO (21:35)
[2020-01-15] VITALS (8 sets, daily range): BP systolic 97–100; BP diastolic 60–65; PULSE 94–100; RESP 18–32; TEMP 36.7–37.1; O2SAT 93–97
[2020-01-15] MEDS: ipratropium-albuterol 3 mL Neb INHALATION ×2 (04:07→08:09)
[2020-01-15] MEDS: acetaminophen 325 mg Tablet 650 MG PO (04:19)
[2020-01-15] MEDS: levoFLOXacin 750 mg Tablet PO (05:50)
[2020-01-15] MEDS: pantoprazole 40 mg SDV IVP (05:50)
--- NOTE | 2020-01-15 06:50 | PM.PN ---
Subjective Subjective: Interval history: Patient had a good night. She is doing much better mentally as well. She is completely clear. No paranoia. Having good bowel movements. No abdominal pain. No nausea or vomiting. Medications: Reviewed: Yes Vitals/I&O/Wt Last Vital Signs Temp 98.1 F 01/15/20 04:00 Pulse 99 01/15/20 04:12 Resp 24 H 01/15/20 04:12 BP 97/60 01/15/20 04:00 Pulse Ox 95 01/15/20 04:12 01/14/20 01/14/20 01/15/20 14:59 22:59 06:59 Intake Total 1280 / 2840 480 / 2840 1080 / 2840 Output Total 600 / 600 Balance 1280 / 2240 480 / 2240 480 / 2240 Physical Exam Narrative: EXAM NARRATIVE: General: No acute distress, Alert. Well nourished. Sitting in a chair and very appropriate and alert and oriented this morning.. Heart: Regular rate and rhythm. No murmurs, rubs or gallops. Normal capillary refill. Lungs: Some expiratory rhonchi and wheezes noted. No significant crackles. Abdomen: Some bowel sounds noted but relatively quiet. No tenderness.. No hepatosplenomegaly. No gaurding. Extremities: No clubbing, cyanosis, or edema. Negative Chepe's Urinary Catheter Management^: Santa: Cath Placed During This Visit: yes Urethral Indwelling: No Reason for Continuing Indwelling Catheter: Accurate Measurement of Urinary Output in Critically Ill Patients Urinary Catheter Date of Insertion: 01/07/20 Urinary Catheter Time of Insertion: 22:49 Data : 01/13/20 04:47 01/13/20 04:47 A&P Assessment and plan (1) S/P right hemicolectomy: -Seem to be doing quite better from the standpoint. Agree with discharge per Dr. Smith once a bed is available at rehab. Status: Acute Code(s): Z90.49 - Acquired absence of other specified parts of digestive tract (2) CAD (coronary artery disease): Stable. No acute process. Status: Acute Code(s): I25.10 - Atherosclerotic heart disease of [place] coronary artery without angina pectoris (3) COPD (chronic obstructive pulmonary disease): Stable. Continue incentive spirometry and monitor for worsening. Continue with respiratory therapy. Status: Acute Code(s): J44.9 - Chronic obstructive pulmonary disease, unspecified (4) Major depressive disorder, recurrent, in full remission: -Continue Parnate . Seems to be better with getting back on her home regimen. Encephalopathy seems to be resolved. Status: Acute Code(s): F33.42 - Major depressive disorder, recurrent, in full remission (5) Ischemic bowel disease: Will need to continue with anticoagulation. Status: Acute Code(s): K55.9 - Vascular disorder of intestine, unspecified Attestations Medical Necessity Statement*: Supposed to be discharged today to rehab. Coding Level of Care Code Acute Leather Crafter for g Fwd Diagnoses S/P right hemicolectomy Z90.49 CAD (coronary artery disease) I25.10 COPD (chronic obstructive pulmonary disease) J44.9 Major depressive disorder, recurrent, in full remission F33.42 Ischemic bowel disease K55.9
[2020-01-15] MEDS: metroNIDAZOLE 500 MG Tablet PO (08:12)
[2020-01-15] MEDS: cholecalciferol (vitamin D3) 1,000 unit Tablet 2000 UNIT PO (08:12)
[2020-01-15] MEDS: aspirin 81 mg Chew Tablet PO (08:13)
[2020-01-15] MEDS: multivitamin therapeutic Tablet 1 TAB PO (08:13)
[2020-01-15] MEDS: metoprolol tartrate 25 mg Tablet PO (08:13)
[2020-01-15] MEDS: potassium chloride oral liq 20 mEq/15 mL UDC NG-TUBE (08:14)
[2020-01-15] MEDS: nicotine 21 mg Patch 1 PATCH TRANSDERMA (08:14)
--- NOTE | 2020-02-04 16:51 | PM.DCS ---
Discharge Providers Date of Admission: 01/01/20 19:37 Date of Discharge: February 04, 2020 Attending Provider at Admission: Brennan Smith MD Attending Provider at Discharge: Brennan Smith MD Primary Care Provider: Venancio Mota MD Diagnoses at Discharge Discharge Diagnosis (1) S/P right hemicolectomy: Status: Resolved Problem details: 01/01/2020 (2) CAD (coronary artery disease): Status: Acute (3) COPD (chronic obstructive pulmonary disease): Status: Acute (4) Major depressive disorder, recurrent, in full remission: Status: Acute (5) Ischemic bowel disease: Status: Resolved Reason for Visit Reason for Visit: Reason For Visit: CHOLESTECTOMY Hospital Course Hospital Course: 01/01/20 Rebecca Coombs is a 64 year old female who presented to the ER with complaints of right upper quadrant pain which started 4 AM this morning. Patient states that the pain was severe and was associated nausea but denies any vomiting. There was no aggravating or relieving factors. Patient had pizza for dinner last night. Denies any history of significant acid reflux. She has never had a similar episode in the past. Denies any fevers or chills Patient was taken to surgery for laparoscopic cholecystectomy but was noted to have an ischemic cecum. Patient therefore underwent a right hemicolectomy as well as laparoscopic cholecystectomy. She was subsequently transferred to the ICU with an NG tube and Santa catheter in place. Over the course of the next few days she had return of bowel function but on day 6 she developed severe confusion and was therefore transferred to the ICU. She had initially elevated troponin associated leukocytosis. CT abdomen pelvis performed at that time showed thickened small bowel but no pneumatosis. The troponin elevation is noted to be not that significant and thus an SC was ruled out. CT of the chest was negative for PE. Patient was started on a heparin drip and empirically treated with IV vancomycin and Zosyn. Over the course of the next few days leukocytosis resolved and patient's overall mental status improved patient was less confused. Her NG tube was discontinued and she is slowly advanced on her diet. At time of discharge she was tolerating a regular diet and she is having daily bowel movements. Her vital signs are stable, she is afebrile and her incisions were healing well. Physical Exam Narrative: EXAM NARRATIVE: Abdomen: Soft, nontender, nondistended incisions healing well Urinary Catheter Management^: Santa: Cath Placed During This Visit: yes Urethral Indwelling: No Reason for Continuing Indwelling Catheter: Accurate Measurement of Urinary Output in Critically Ill Patients Urinary Catheter Date of Insertion: 01/07/20 Urinary Catheter Time of Insertion: 22:49 Discharge Data Data Completed and Pending: Completed Studies During Hospitalization Category Date Time Status CT abdomen pelvis w con* 22323 Urge nt Cat Scan 01/01/20 09:[address] angio abdomen pelvis 06793 Routi ne Cat Scan 01/08/20 07:[address] chest abd pel wo con Stat Cat Scan 01/07/20 23:[address] head wo con* 7 0450 Stat Cat Scan 01/07/20 23:06 Completed CXRP [XR chest 1V portable 50386] S tat Exams 01/05/20 13:56 Completed CXRP [XR chest 1V portable 04784] S tat Exams 01/07/20 17:07 Completed CXRP [XR chest 1V portable 14626] S tat Exams 01/11/20 04:58 Completed XR KUB portable 7 4018 Stat Exams 01/07/20 06:59 Completed XR abdomen min 2V 76067 Routine Exams 01/06/20 07:08 Completed XR abdomen min 2V 69965 Routine Exams 01/10/20 06:15 Completed XR acute abdomen series 75417 Routi ne Exams 01/05/20 07:18 Completed XR chest 1V cameron ble 51818 Routine Exams 01/05/20 11:07 Completed XR chest 1V cameron ble 93692 Routine Exams 01/07/20 14:13 Completed XR chest 1V cameron ble 15079 Urgent Exams 01/01/20 10:41 Completed XR chest 2V* 7104 6 Routine Exams 01/06/20 07:33 Completed OVA and Parasites , Conc and PE Rout ine Lab 01/11/20 10:32 Completed MR MRCP 47310 Urg ent MRI 01/01/20 12:00 Completed Pathology: Surgic al [PTH] Routine Pth 01/01/20 19:49 Completed CV echo complete* 25920 Routine Ultrasound 01/04/20 17:20 Completed US gall bladder 7 6705 Urgent Ultrasound 01/01/20 09:03 Completed Vitals: Last Vital Signs Temp 98.7 F 01/15/20 09:05 Pulse 100 01/15/20 09:05 Resp 18 01/15/20 09:05 BP 100/65 02/14/20 09:05 Pulse Ox 95 01/15/20 09:05 Discharge Plan Discharge Patient Disposition: Xfer SNF Condition: Stable Prescriptions: New acetaminophen 650 mg Suppository 650 mg AL Q4H PRN (Reason: Mild Pain Or Increase Temp) Qty: 90 RF: 0 Coumadin 5 mg tablet 5 mg PO DAILY Qty: 30 RF: 0 Continued metoprolol tartrate 25 mg tablet 25 mg PO BID RF: 0 lovastatin 40 mg tablet 40 mg PO BEDTIME RF: 0 omeprazole 20 mg capsule,delayed release(DR/EC) 20 mg PO BID RF: 0 furosemide [Lasix] 40 mg tablet 40 mg PO QAM RF: 0 fluticasone furoate 50 mcg/actuation blister with device See Rx Instructions INHALATION DAILY RF: 0 multivitamin [Daily Multi-Vitamin] Tablet 1 tab PO QAM RF: 0 ascorbate calcium (vitamin C) 500 mg tablet 500 mg PO DAILY RF: 0 cholecalciferol (vitamin D3) 2,000 unit tablet 2,000 unit PO DAILY RF: 0 tranylcypromine [Parnate] 10 mg tablet 30 mg PO BID Qty: 180 RF: 5 magnesium 250 mg tablet 250 mg PO DAILY RF: 0 omega 6-fyf-sso-fish oil 500-100 mg capsule See Rx Instructions PO DAILY RF: 0 potassium chloride 20 mEq Tablet,Er Particles/Crystals 20 meq PO DAILY RF: 0 Wixela Inhub 100-50 mcg/dose Blister With Device 1 puff INHALATION BID RF: 0 Discontinued baclofen 10 mg tablet 10 mg PO TID PRN (Reason: muscle spasm) RF: 0 aspirin [Rosalio Chewable Aspirin] 81 mg tablet,chewable 81 mg PO DAILY RF: 0 vitamin E succinate 200 unit tablet 200 unit PO DAILY RF: 0 No Action alprazolam [Xanax] 1 mg tablet 1 mg PO TID Qty: 90 RF: 1 Discharge Orders: Discharge Order (Routine); Ordered 01/14/20 Ordered By: Venancio Mota Referrals: Brennan Smith MD [Physician] - 2 weeks Discharge Diet: GI Soft Discharge Activity: As per PT/OT instructions Activity Restrictions/Additional Instructions: - admit to rehab with medical appointment clerk as attending - Take Lovenox daily until therapeutic INR. - check INR in 2 days. - PT and OT to assess and treat. 1. Up and walking as tolerated. 2. Ok to shower in 48 hours after surgery. 3. Do not lift more than 10 pounds. 4. Advised to return to ER or contact my office if there are any signs of infection like, increasing pain, fevers, chills, redness or drainage of pus. 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
== END 2020-01-15 11:18 | disposition skilled nursing facility (03) | DRG 417 ==
LOC: ER 07:50 → OR 14:33 → ICU 19:49 → MEDSURG 01-03 13:29 → ICU 01-07 22:01 → MEDSURG 01-12 10:54
PROVIDERS: Family Medicine; Internal Medicine; Student in an Organized Health Care Education/Training Program; Admitting Provider Surgery; Emergency Provider Physician Assistant; Family Provider Family Medicine; PCP Family Medicine; Visit Provider Surgery
PROC: 0FT44ZZ Resection of Gallbladder, Percutaneous Endoscopic Approach (ICD-10-PCS; CPT 47562; principal; 2020-01-01 15:30)
PROC: 0FT44ZZ Resection of Gallbladder, Percutaneous Endoscopic Approach (ICD-10-PCS; 2020-01-01 15:30)
DX: K80.00 Calculus of gallbladder with acute cholecystitis without obstruction (principal); K55.069 Acute infarction of intestine, part and extent unspecified; J18.9 Pneumonia, unspecified organism; J96.12 Chronic respiratory failure with hypercapnia; J44.1 Chronic obstructive pulmonary disease with (acute) exacerbation; G93.40 Encephalopathy, unspecified; K55.9 Vascular disorder of intestine, unspecified; K56.7 Ileus, unspecified; I10 Essential (primary) hypertension; I25.10 Atherosclerotic heart disease of native coronary artery without angina pectoris; F17.210 Nicotine dependence, cigarettes, uncomplicated; F33.42 Major depressive disorder, recurrent, in full remission; Z95.1 Presence of aortocoronary bypass graft; Z96.611 Presence of right artificial shoulder joint
CPT/HCPCS: 12345; 36415; 36416; 36592; 36600; 51702; 70450; 71045; 71046; 71250; 74018; 74019; 74022; 74174; 74176; 74177; 74181; 76705; 80048; 80051; 80053; 80061; 80202; 81001; 82271; 82803; 82810; 82962; 83605; 83630; 83690; 83735; 83986; 84100; 84132; 84484; 85014; 85018; 85025; 85049; 85730; 86140; 87040; 87086; 87505; 88304; 88309; 93005; 93306; 94640; 94664; 96360; 96361; 96365; 96366; 96372; 96374; 96375; 97110; 97116; 97162; 97165; 97530; 97535; 99283; C1751; C9113; C9290; J0131; J0610; J0690; J1100; J1630; J1644; J1650; J2001; J2060; J2270; J2405; J2543; J2704; J2710; J2765; J3010; J3370; J3475; J3480; J3490; J7030; J7050; J7644; Q9967; S0030

== ENCOUNTER → 2020-02-01 10:55 | Outpatient (BNVA) | payer MEDICARE, SELFPAY | PROVIDERS: Family Provider Family Medicine; PCP Family Medicine; Visit Provider Psychiatry & Neurology Psychiatry | DX: F41.0 Panic disorder [episodic paroxysmal anxiety] (principal); F33.42 Major depressive disorder, recurrent, in full remission | CPT/HCPCS: 99213 ==

== ENCOUNTER 2020-02-23 13:58 | Outpatient (CLI) | payer MEDICARE, SELFPAY ==
[2020-02-23 14:38] LABS: INR 2.67 (0.8-1.2)
== END 2020-02-23 13:59 | disposition home or self-care (01) ==
LOC: LAB 14:00
PROVIDERS: Family Provider Family Medicine; PCP Family Medicine; Visit Provider Family Medicine
DX: Z51.81 Encounter for therapeutic drug level monitoring (principal); Z79.01 Long term (current) use of anticoagulants
CPT/HCPCS: 85610

== ENCOUNTER 2020-03-08 14:25 | Outpatient (CLI) | payer MEDICARE, SELFPAY ==
[2020-03-08 14:42] LABS: Basophils # 0.1 10^3/uL (0.0-0.1); Basophils % 0.6 %; Eosinophils # 0.2 10^3/uL (0.0-0.8); Eosinophils % 2.3 %; Hematocrit 36.6 % (37.0-47.0); Hemoglobin 11.5 g/dL (11.5-15.3); Lymphocytes # 3.2 10^3/uL (0.8-4.8); Lymphocytes % 33.6 %; Mean Corpuscular HGB Conc 31.4 g/dL (30.0-36.0); Mean Corpuscular Hemoglobin 29.7 pg (28.0-34.0); Mean Corpuscular Volume 94.6 fL (81-99); Mean Platelet Volume 10.4 fL (7.4-10.4); Monocytes # 0.8 10^3/uL (0.2-0.9); Monocytes % 8.2 %; Neutrophils # 5.3 10^3/uL (1.8-7.7); Neutrophils % 55.1 %; Nucleated Red Blood Cells % 0 %; Platelet Count 329 10^3/cmm (130-400); Red Blood Count 3.87 10^6/uL (4.1-5.3); Red Cell Distribution Width 12.9 % (12.1-15.1); White Blood Count 9.5 10^3/uL (4.0-10.0)
[2020-03-08 15:34] LABS: INR 2.76 (0.8-1.2)
== END 2020-03-08 14:26 | disposition home or self-care (01) ==
LOC: LAB 14:29
PROVIDERS: Family Provider Family Medicine; PCP Family Medicine; Visit Provider Family Medicine
DX: Z51.81 Encounter for therapeutic drug level monitoring (principal)
CPT/HCPCS: 85025; 85610

== ENCOUNTER → 2020-04-06 08:09 | Outpatient (BNVA) | payer MEDICARE, SELFPAY | PROVIDERS: Family Provider Family Medicine; PCP Family Medicine; Visit Provider Psychiatry & Neurology Psychiatry | DX: F33.42 Major depressive disorder, recurrent, in full remission (principal); F41.0 Panic disorder [episodic paroxysmal anxiety] | CPT/HCPCS: 99213 ==

== ENCOUNTER 2020-06-08 13:25 | Outpatient (CLI) | payer MEDICARE, SELFPAY ==
--- NOTE | 2020-06-08 14:38 | CTR_ITS ---
PROCEDURE INFORMATION: Exam: CT Angiography Abdomen and Pelvis With Contrast Exam date and time: 06/08/2020 2:39 PM Age: 65 years old Clinical indication: Other: Ischemic colitis; Prior surgery; Surgery date: 6+ months; Surgery type: Gb/hyst TECHNIQUE: Imaging protocol: Computed tomographic angiography of the abdomen and pelvis with intravenous contrast material. 3D rendering: MIP and/or 3D reconstructed images were created by the technologist. Radiation optimization: All CT scans at this facility use at least one of these dose optimization techniques: automated exposure control; mA and/or kV adjustment per patient size (includes targeted exams where dose is matched to clinical indication); or iterative reconstruction. Contrast material: VISI 320; Contrast volume: 95 ml; Contrast route: INTRAVENOUS (IV); COMPARISON: CT angio abdomen pelvis 18022 01/08/2020 1:30 PM RADIATION DOSE METRICS: Total DLP (mGy-cm): 2844.74 FINDINGS: Aorta: 3.3 cm infrarenal abdominal aortic aneurysm with atherosclerotic calcifications. No dissection. Celiac trunk and mesenteric arteries: The celiac artery is widely patent. Calcified plaque with mild stenosis in the proximal superior mesenteric artery. Renal arteries: Calcified plaque with mild stenosis in the proximal left renal artery. The right renal artery is widely patent. Right iliac arteries: Calcified plaque with mild-moderate stenosis in the right common iliac artery. Calcified plaque with moderate to severe stenosis in the distal right external iliac artery. Left iliac arteries: Calcified plaque with mild stenosis in the left common iliac artery. Calcified plaque with mild to moderate stenosis in the distal left external iliac artery. Liver: No mass. Gallbladder and bile ducts: Cholecystectomy. Mild prominence of the bile ducts is most likely reservoir effect. Pancreas: Unremarkable. No mass. No ductal dilation. Spleen: Unremarkable. No splenomegaly. Adrenals: Unremarkable. No mass. Kidneys and ureters: Unremarkable. No solid mass. No hydronephrosis. Stomach and bowel: Small duodenal diverticulum. Diverticulosis of the distal colon. Resection of the proximal colon with ileocolonic anastomosis. Appendix: The appendix is absent. Intraperitoneal space: Unremarkable. No free air. No significant fluid collection. Lymph nodes: Unremarkable. No enlarged lymph nodes. Bladder: Unremarkable. No mass. Reproductive: The uterus is absent. The ovaries are small in size. Bones/joints: Degenerative spine. No compression fracture. Old healed left pubic rami fractures. Soft tissues: Unremarkable. CT/CT angio abdomen pelvis 27584 IMPRESSION: 1. Calcified plaque with mild stenosis in the proximal superior mesenteric artery. 2. 3.3 cm infrarenal abdominal aortic aneurysm. 3. Calcified plaque with multifocal disease within the bilateral common and external iliac arteries. 4. Diverticulosis of the distal colon. 5. Resection of the proximal colon. Radiation Dose CTDIVOL = (mGy): DLP = 2844.74 (mGy-cm)
[2020-06-08 15:56] LABS: Blood Urea Nitrogen 25 mg/dL (8-23); Glomerular Filtration Rate 49.7 mL/min (90-130)
[2020-06-08] MEDS: iodixanol 320 mg/mL 100mL Btl IV (17:50)
== END 2020-06-08 13:26 | disposition home or self-care (01) ==
LOC: RADSHAW 13:30
PROVIDERS: PCP Family Medicine; Visit Provider Family Medicine
DX: K52.89 Other specified noninfective gastroenteritis and colitis (principal); I70.8 Atherosclerosis of other arteries; I71.4 Abdominal aortic aneurysm, without rupture; K57.90 Diverticulosis of intestine, part unspecified, without perforation or abscess without bleeding
CPT/HCPCS: 36415; 74174; 82565; 84520; Q9967

== ENCOUNTER → 2020-07-06 09:26 | Outpatient (BNVA) | payer MEDICARE, SELFPAY | PROVIDERS: Family Provider Family Medicine; PCP Family Medicine; Visit Provider Psychiatry & Neurology Psychiatry | DX: F33.42 Major depressive disorder, recurrent, in full remission (principal); F41.0 Panic disorder [episodic paroxysmal anxiety]; F41.1 Generalized anxiety disorder | CPT/HCPCS: 99213 ==

== ENCOUNTER → 2020-08-31 08:50 | Outpatient (BNVA) | payer MEDICARE, SELFPAY | PROVIDERS: Family Provider Family Medicine; PCP Family Medicine; Visit Provider Psychiatry & Neurology Psychiatry | DX: F33.42 Major depressive disorder, recurrent, in full remission (principal); F41.0 Panic disorder [episodic paroxysmal anxiety] | CPT/HCPCS: 99213 ==

== ENCOUNTER 2020-09-15 13:45 | Outpatient (CLI) | payer MEDICARE, SELFPAY ==
--- NOTE | 2020-09-15 13:52 | MM_ITS ---
WS: [id number] SCREENING DIGITAL MAMMOGRAM WITH CAD HISTORY: SCREENING COMPARISON: 08/05/2019 and 04/09/2017 Bilateral CC and MLO views submitted. Computer aided detection analyzed. Breast composition: The breasts are almost entirely fatty. No suspicious masses, microcalcifications or architectural distortion. Benign calcification anterior RIGHT breast. MM/[place] [id number] IMPRESSION: BI-RADS: 2-Benign FOLLOW UP: 1 Year Follow-up
== END 2020-09-15 13:46 | disposition home or self-care (01) ==
LOC: RADSHAW 13:49
PROVIDERS: PCP Family Medicine; Visit Provider Family Medicine
DX: Z12.31 Encounter for screening mammogram for malignant neoplasm of breast (principal)
CPT/HCPCS: 77067

== ENCOUNTER → 2020-10-19 07:50 | Outpatient (BNVA) | payer MEDICARE, SELFPAY | PROVIDERS: PCP Family Medicine; Visit Provider Psychiatry & Neurology Psychiatry | DX: F33.42 Major depressive disorder, recurrent, in full remission (principal); F41.0 Panic disorder [episodic paroxysmal anxiety] | CPT/HCPCS: 99213 ==

== ENCOUNTER → 2021-01-11 08:31 | Outpatient (BNVA) | payer MEDICARE, SELFPAY | PROVIDERS: PCP Family Medicine; Visit Provider Psychiatry & Neurology Psychiatry | DX: F33.42 Major depressive disorder, recurrent, in full remission (principal); F41.0 Panic disorder [episodic paroxysmal anxiety] | CPT/HCPCS: 99214 ==

== ENCOUNTER → 2021-03-13 09:53 | Outpatient (BNVA) | payer MEDICARE, SELFPAY | PROVIDERS: PCP Family Medicine; Referring Provider Family Medicine; Visit Provider Specialist | DX: M25.511 Pain in right shoulder (principal) | CPT/HCPCS: 73030 ==

== ENCOUNTER 2021-03-16 15:19 | Outpatient (RCR) | payer MEDICARE, SELFPAY | END 2021-03-31 23:59 | disposition home or self-care (01) | LOC: SPT 15:19 | PROVIDERS: PCP Family Medicine; Referring Provider Specialist; Visit Provider Specialist | DX: Z47.89 Encounter for other orthopedic aftercare (principal) | CPT/HCPCS: 97032; 97110; 97161 ==

== ENCOUNTER 2021-03-29 09:14 | Outpatient (CLI) | payer MEDICARE, SELFPAY ==
--- NOTE | 2021-03-29 09:24 | NM_ITS ---
WS: [id number] THREE-PHASE BONE SCAN HISTORY: Z96.619 - Presence of unspecified artificial shoulder joint COMPARISON: 03/13/2021 Patient is is injected with 26.4 mCi Tc99m HDP intravenously. Immediate angiographic phase imaging is performed over the area of concern. Static blood pool imaging also performed. Two-hour whole-body sc intigrams performed in anterior and posterior projections. Additional large field of view imaging sub mitted as necessary. Arterial and blood pool phase imaging is normal. On the delayed imaging there is a photopenic defect in the RIGHT humeral head from the prosthesis. Extending both medial and lateral from the photopenic defect is an area of mild to moderate increased uptake. These areas of mild uptake correspond to lyti c area in the proximal lateral humeral diaphysis and involving the inferior glenoid. There is a small amount of lucency noted surrounding one of the screws in the inferior glenoid. Marked increased uptake at the tibiotalar joints from arthritis. Normal uptake in the kidneys and sof t tissues. NM/NM bone 3 phase [id number] IMPRESSION: 1. No evidence for osteomyelitis. 2. On the delayed imaging there is mild to moderate uptake involving the media l and lateral aspects of the RIGHT humeral head prostheses. Upon reviewing the prior radiographs are probably subtle areas of lucency around the hardware sugg esting loosening.
== END 2021-03-29 09:15 | disposition home or self-care (01) ==
PROVIDERS: PCP Family Medicine; Visit Provider Specialist
DX: Z96.619 Presence of unspecified artificial shoulder joint (principal)
CPT/HCPCS: 78315; A9561

== ENCOUNTER 2021-04-01 06:00 | Outpatient (RCR) | payer MEDICARE, SELFPAY | END 2021-05-01 23:59 | disposition home or self-care (01) | LOC: SPT 06:00 | PROVIDERS: PCP Family Medicine; Referring Provider Specialist; Visit Provider Specialist | DX: Z47.89 Encounter for other orthopedic aftercare (principal) | CPT/HCPCS: 97032; 97110 ==

== ENCOUNTER → 2021-04-06 08:36 | Outpatient (BNVA) | payer MEDICARE, SELFPAY | PROVIDERS: PCP Family Medicine; Visit Provider Psychiatry & Neurology Psychiatry | DX: F33.42 Major depressive disorder, recurrent, in full remission (principal); F41.0 Panic disorder [episodic paroxysmal anxiety]; Z63.8 Other specified problems related to primary support group | CPT/HCPCS: 99214 ==

== ENCOUNTER → 2021-05-04 13:38 | Outpatient (BNVA) | payer MEDICARE, SELFPAY | PROVIDERS: PCP Family Medicine; Visit Provider Psychiatry & Neurology Psychiatry | DX: F41.0 Panic disorder [episodic paroxysmal anxiety] (principal); F33.42 Major depressive disorder, recurrent, in full remission; Z63.8 Other specified problems related to primary support group | CPT/HCPCS: 99214 ==

== ENCOUNTER → 2021-06-01 13:58 | Outpatient (BNVA) | payer MEDICARE, SELFPAY | PROVIDERS: PCP Family Medicine; Visit Provider Psychiatry & Neurology Psychiatry | DX: F33.42 Major depressive disorder, recurrent, in full remission (principal); F41.0 Panic disorder [episodic paroxysmal anxiety] | CPT/HCPCS: 99214 ==

== ENCOUNTER → 2021-07-04 09:45 | Outpatient (BNVA) | payer MEDICARE, SELFPAY | PROVIDERS: PCP Family Medicine; Referring Provider Internal Medicine; Visit Provider Internal Medicine | DX: Z01.812 Encounter for preprocedural laboratory examination (principal); Z20.822 Contact with and (suspected) exposure to COVID-19 | CPT/HCPCS: 80048; 85025; 87635 ==

== ENCOUNTER 2021-07-10 06:11 | Day surgery (SDC) | payer MEDICARE, SELFPAY ==
[2021-07-10] VITALS (23 sets, daily range): BP systolic 91–135; BP diastolic 49–81; PULSE 55–67; RESP 12–19; TEMP 36.7; O2SAT 91–99
--- NOTE | 2021-07-10 06:00 | XACV_ITS ---
Exam Room: 1 Ht: 170 cm Wt: 87 kg BSA: 2.05 m2 Gender: Female : 1955 Any Known Allergies: Codeine Exam Priority: Routine Procedure(s): Procedure Description: Diagnostic procedure Procedure Description: Venous Graft Catheterization Procedure Description: Coronary Angiography Procedure Description: Pressure Wire Diagnostic Cath Status: Elective Diagnostic Findings * Left Main has mild luminal irregularities. * Proximal Left Anterior Descending: obstructive 70% stenosis, LUCIE: 3 flow. It is heavily calcified long lesion. * First Obtuse Marginal Branch Segment: significant 80% stenosis, LUCIE: 3 flow. Small to medium sized vessel. * JIANG was not used as a graft. * Proximal Circumflex: moderate 50% stenosis, LUCIE: 3 flow. * Proximal Right Coronary Artery to Mid Right Coronary Artery: total occlusion, LUCIE: 0 flow. * Ascending Aorta to Distal Right Coronary Artery graft: total occlusion, LUCIE: 0 flow. * Ascending Aorta to 1st Diagonal graft: patent. * Ascending Aorta to First Obtuse Marginal Branch Segment graft: total occlusion, LUCIE: 0 flow. * Three grafts visualized. * Coronary angiography shows co-dominance. Interventional Findings * Interventional procedure: We engaged left main artery with XB 3.5 guide catheter. IV heparin was administered to maintain an ACT above 250 seconds. After zeroing and equalization, FFR wire was advanced into distal LAD. IV adenosine was initiated to augment obtain maximal hyperemia. FFR value of 0.79 was obtained. At this time FFR wire and guide catheter were removed. Patient left the [facility] in a stable condition.. Conclusions 1. Severe multivessel coronary artery disease. Patent SVG to diagonal artery. SVG to RCA and OM are occluded. JIANG was not used. 2. Severe proximal to mid LAD, heavily calcified lesion. 3. FFR of prox to mid LAD is abnormal with value of 0.79. 4. Three coronary grafts visualized: one graft patent, and two grafts occluded. 5. Patient has prior CABG. Recommendations * Start aspirin and Plavix. * Patient needs arthrectomy of LAD. We will perform it as a staged procedure because of bad nonavailability in hospital today and after arthrectomy and PCI of proximal to mid LAD patient will need to stay in hospital overnight.. * High intensity statin therapy. Interventional RX Recommendation: PCI w/o planned CABG Diagnostic RX Recommendation: PCI w/o planned CABG Pressures Phase:Rest AO : 75 / 37 ( 51 ) @ 6:49:00 AM 82 / 43 ( 59 ) @ 6:51:00 AM 83 / 46 ( 63 ) @ 6:56:00 AM Clinical Evaluation EBL: 5mL-10mL Procedural Details Procedure Consent Obtained. Current Diagnosis : Chest Pain. Pre-Procedure Time Out. Identified patient by full name and date of as verbalized by the patient/guarantor. Does the consent match the physician's order: Yes. Accurate & Complete Informed Consent: Yes. Inpatient/Outpatient History & Physical on Chart: Yes. If H&P is completed, is and addenduem needed: No; If yes, is the addendum complete: N/A. Visualize and Verify Site with Patient/Guarantor: N/A. Relevant Radiology Images available: Yes. Pre-op teaching completed and patient verbalized understanding. The risks, benefits, and alternatives of sedation and/or procedure were discussed by physician. The patient agrees to continue. Procedure started. [facility] Clinical Fraility Score: 3: Managing Well. [facility] Indications: New Onset Angina. Chest Pain Symptom Assessment: Typical Angina Symptoms. Correct patient, site and procedure confirmed by cath team. Current diagnosis: Chest Pain. PERRLA. 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 Lungs clear x 5 lobes. IV Site on Arrival: 20 gauge in the left forearm. IV Fluids: 0.9% NaCl at KVO. 0 mL infused prior to petroleum laboratory technician. Pre Procedural Pulses: bilateral dorsalis pedis was 3+. Pre Procedural Pulses: bilateral posterior tibial was 2+. Pre Procedural Pulses: right radial was 2+. Oxygen started at 2liters/min via nasal canula. right groin was prepped with chloroprep then draped in the usual sterile fashion. Physician notified. Baseline sample Acquired. HR: 0 BPM. Physician arrived. Florecita Sims circulating. Rafael Bee assisting with scrubbing. Physician scrubbed in. Immediate Pre-Procedure Time Out. Correct Patient: Yes; Correct Procedure: Yes; Correct Site: Yes; Correct Patient Position: Yes; Correct Supplies: Yes; Dried Flammable Prep: Yes; Blood Products Available: N/A;. Lidocaine 1% infiltrated to the right groin. Arterial access obtained. A 5 botswanan JL4 catheter in over wire. Multiple views taken of left coronary artery. Catheter removed over the standard wire. A 5 [place] JR4 catheter in over wire. Multiple views taken of right coronary artery. SVG to RCA occluded. SVG to Diaganol occluded. SVG's to OM visualized and patent. Physician review of cine films. 6 botswanan XB 3.5 guide catheter was inserted over the wire. FFR guidewire was advanced through the guide catheter to lesion in the mid LAD. An FFR value of 0.8 was obtained for a lesion located at Mid LAD. Wire out. Family updated. Guide catheter out. Sheath(s) removed and manual pressure held until hemostasis was achieved. Sterile 4x4 and Op-site applied to the puncture site. No oozing or hematoma noted. Post sheath removal instructions were given and the patient verbalized understanding. A Manual Compression was successful obtaining hemostatsis at the Right Femoral artery insertion site. Post Procedure: Pulses reassessed and unchanged. PERRLA. 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 No VTE prophylaxis required. Total IV fluids: 525 mL. Medication's Wasted: Lidocaine 1% = 5 mL. Medication's Wasted: Other = Fentanyl 50 mcg. Medication's Wasted: Heparin = 1000 units. Medication's Wasted: Other = Adeonsine 64 mL. Contrast type used: Omnipaque 300 mgI/mL, 500 mL bottle. Post-op diagnosis: CAD. Complications: None. Estimated blood loss: 5mL-10mL. Procedure completed. Patient transferred by stretcher to CPRU. Vital chart was stopped. Access Site Site: Right Femoral artery Sheath Size: 6 Fr Hemostasis Method: Manual Compression Hemostasis Success: Successful Procedure Medications Start: 7:27 AM Stop: 7:27 AM Medication: Versed 1 mg and Fentanyl 25 mcg Amount: 1 Route: I.V. Start: 7:35 AM Stop: 7:35 AM Medication: Versed 1 mg and Fentanyl 25 mcg Amount: 1 Route: I.V. Start: 7:50 AM Stop: 7:50 AM Medication: 0.9% Saline Amount: 250 ml Route: I.V. bolus Start: 8:21 AM Stop: 8:21 AM Medication: 0.9% Saline Amount: 250 ml Route: I.V. bolus I, the attending physician, have reviewed and verified all procedure medications. Yes, all medications given per verbal order History/Risk Factors Hypertension: Yes Dyslipidemia: Yes Peripheral Arterial Disease (PAD): No Myocardial Infarction (IL): Yes Obesity: No Renal Disease: No Prior Interventions PCI: No CABG: Yes Valve Surgery: No Report Signatures Finalized by Jaiden Feliciano MD on 07/25/2021 05:48 PM
[2021-07-10] MEDS: diphenhydrAMINE 50 mg Capsule PO (07:00)
--- NOTE | 2021-07-10 07:22 | W.PM.OPSFHP ---
Same Day Surgery H&P Indication for Procedure/HPI DATE OF PROCEDURE: July 10, 2021 CHIEF COMPLAINT/INDICATIONFOR SURGICAL PROCEDURE: Worsening angina PREOP DIAGNOSIS: Worsening Angina PLANNED PROCEDRUE: Operation Date: 07/10/21 07:00 Proposed Procedures p Cardiac Catheterization 93463 R07.89(Left) - Jaiden Feliciano M.D Possible percutaneous coronary intervention 66-year-old female with past medical history of coronary artery disease, tobacco abuse, bypass surgery, COPD, hypertension, dyslipidemia and a prior AR who has been having worsening chest pain over the last several weeks. Mention it is substernal and mostly exertional but has noted some rest pains as well. Because of hypotension,her medical therapy could not be uptitrated. She has been using nitros. ROS CONSTITUTIONAL: No fever chills weight loss or gain or night sweats. [] HEENT: Normocephalic, atraumatic.[] RESPIRATORY: No cough, sputum, hemoptysis or wheezing.[] CARDIOVASCULAR: No shortness of breath, chest pain, PND, orthopnea, lower extremity edema, presyncope or syncope. [] GI: no nausea vomiting diarrhea. [] MOVIE STUNT PERFORMER: No numbness, tingling, weakness or loss of function in any part of the body. [] MUSCULOSKELETAL: No knee or joint pain or rashes. [] Medications/Allergies* Home Medications Medication Instructions Recorded Confirmed Type ascorbate calcium (vitamin C) 500 500 mg PO DAILY tab 12/08/19 07/10/21 History mg tablet fluticasone furoate 50 See Rx Instructions INHALATION 12/08/19 07/10/21 History mcg/actuation blister powder for DAILY each inhalation furosemide 40 mg tablet 40 mg PO QAM 12/08/19 07/10/21 History lovastatin 40 mg tablet 40 mg PO BEDTIME tab 12/08/19 07/04/21 History magnesium 250 mg tablet 250 mg PO DAILY 12/08/19 07/10/21 History metoprolol tartrate 25 mg tablet 12.5 mg PO BID 12/08/19 07/10/21 History multivitamin 1 tab PO QAM 12/08/19 07/10/21 History omega 3-dha 500 mg-epa 100 mg-fish See Rx Instructions PO DAILY cap 12/08/19 07/10/21 History oil capsule omeprazole 20 mg capsule,delayed 20 mg PO BID 12/08/19 07/10/21 History release fluticasone propion-salmeterol 1 puff INHALATION BID 01/01/20 07/10/21 History [W[facility] In[facility]] potassium chloride 20 meq PO DAILY 01/01/20 07/10/21 History aspirin 81 mg tablet,delayed 81 mg PO DAILY 08/30/20 07/10/21 History release baclofen 10 mg tablet 10 mg PO BID 04/05/21 07/10/21 History cholecalciferol (vitamin D3) 50 1,000 unit PO DAILY tab 06/01/21 07/10/21 History mcg (2,000 unit) tablet Allergies/Adverse Reactions Allergy/AdvReac Type Severity Reaction Status Date / Time baclofen Allergy Unknown Unknown Verified 07/04/21 09:51 epinephrine Allergy Unknown Unknown Verified 07/04/21 09:51 Omrbtth-Xuv-Vzs Reductase Allergy Unknown Unknown Verified 07/04/21 09:51 Inhibitor codeine AdvReac Unknown Unknown Verified 07/04/21 09:51 gabapentin [From Neurontin] AdvReac Unknown Unknown Verified 07/04/21 09:51 methadone AdvReac Unknown Unknown Verified 07/04/21 09:51 oxycodone [From OxyContin] AdvReac Unknown Unknown Verified 07/04/21 09:51 tramadol AdvReac Unknown Unknown Verified 07/04/21 09:51 Pertinent History/Comorbid Conditions* Medical History (Updated 06/10/21 @ 21:31 by Jaiden Feliciano M.D) CAD (coronary artery disease) COPD (chronic obstructive pulmonary disease) HTN (hypertension) Hypercholesterolemia Ischemic bowel disease Major depressive disorder, recurrent, in full remission Myocardial infarction Panic disorder Tobacco abuse Warfarin anticoagulation Surgical History (Updated 03/15/21 @ 09:33 by Kyung Tineo MD) H/O cardiac catheterization H/O hysterectomy with oophorectomy H/O rotator cuff surgery History of right shoulder replacement Hx of appendectomy S/p bilateral carpal tunnel release S/P CABG x 4 S/P right hemicolectomy 01/01/2020 Status post colonoscopy Status post laparoscopic cholecystectomy 01/01/2020 Social History Smoking and tobacco status: former smoker (last month) Quit status (tobacco): has quit using tobacco Second hand smoke exposure: No Smoking risk assessment/counseling performed?: No Reason smoking risk assessment not done: other Marital status: Current occupational status: retired Pertinent Exam Findings alert, oriented x 3, clear to auscultation bilaterally and regular rate & rhythm Conscious Sedation Assessment PATIENT ASSESSED PRIOR TO SEDATION, WITH NO CHANGE NOTED: Yes AIRWAY EVAL/ANESTHESIA PLAN: normal airway, see other exam findings, ASA III, Monitored Anesthesia, Local Anesthesia, Risks, benefits & alternatives of sedation and/or procedure discussed and Patient agrees to continue as planned Recommendations Surgery/Procedure today (Left heart cath with possible percutaneous coronary intervention) Coding Level of Care Code Acute Straddle Truck Driver for Lillian Yang
--- NOTE | 2021-07-10 09:16 | SUR.PHASEII ---
Clarification of fluids Notified MD for fluid status post op. Verbal orders received for NS at 75ml/hr until discharged.
== END 2021-07-10 14:15 | disposition home or self-care (01) ==
PROVIDERS: PCP Family Medicine; Visit Provider Internal Medicine
DX: I25.110 Atherosclerotic heart disease of native coronary artery with unstable angina pectoris (principal); Z95.1 Presence of aortocoronary bypass graft; J44.9 Chronic obstructive pulmonary disease, unspecified; I10 Essential (primary) hypertension; E78.5 Hyperlipidemia, unspecified; I25.2 Old myocardial infarction; Z79.82 Long term (current) use of aspirin; E78.00 Pure hypercholesterolemia, unspecified; Z79.01 Long term (current) use of anticoagulants; Z87.891 Personal history of nicotine dependence
CPT/HCPCS: 36415; 93455; 93571; C1769; C1887; C1894; J0153; J1644; J2250; J3010; J7030; Q0163; Q9967

== ENCOUNTER 2021-07-19 06:07 | Day surgery (SDC) | payer MEDICARE, SELFPAY ==
--- NOTE | 2021-07-19 06:00 | XACV_ITS ---
Ht: 170 cm Wt: 87 kg BSA: 2.05 m2 Gender: Female : 1955 Any Known Allergies: Codeine Exam Priority: Routine Procedure(s): Procedure Description: Diagnostic procedure Procedure Description: PCI procedure Procedure Description: Drug Eluting Coronary Stent Procedure Description: PTCA Procedure Description: Coronary Atherectomy Procedure Description: Miscellaneous Procedure Description: Angio-Seal Diagnostic Cath Status: Elective Diagnostic Findings * Left Main has no significant disease. * Circumflex has mild luminal irregularities. * Right Coronary Artery not injected. * Proximal Left Anterior Descending has severe 70% proximal to mid vessel stenosis. * This is a staged procedure for PCI of the proximal to mid LAD. For complete diagnostic cath, please refer to report from 07/10/2021. PCI Status: Elective PCI Indication: Other Interventional Findings * Procedure detail: We engaged left main artery using XB 3.5 guide catheter. Using Viper wire, we crossed the proximal to mid LAD lesions and put it in the distal vessel. We then performed orbital arthrectomy of proximal to mid LAD. This was followed by predilation of the LAD with a 2.75 x 12 mm semicompliant balloon. We then placed a 3.0 x 38 mm resolute Treivn drug-eluting stent. This was postdilated with a 3.25 x 12 mm NC balloon. We then followed that by dilation with a 3.5 x 6 mm NC balloon. At this time final angiogram was performed that showed excellent stent expansion, no significant residual stenosis and LUCIE-3 flow. Guidewire and guide catheter were removed. Patient left the Icu Nurse in a stable condition.. * Proximal Left Anterior Descendin% stenosis treated with a AB TREK 2.75X12 RX BALLOON, ARIELLA Constantino TREVIN 3.0X38 RADHA, ARIELLA KOCH EUPHORA RX 3.55M99ST BALLOON, and ARIELLA KOCH EUPHORA RX 3.34X27HK BALLOON. 0% residual stenosis, LUCIE: 3 flow. Conclusions 1. Severe proximal to mid heavily calcified LAD stenosis. S/p successful revascularization with 2. orbital arthrectomy and 3. PCI of proximal to mid LAD with RADHA x1.. 4. Orbital arthrectomy performed. 5. Proximal Left Anterior Descending was treated with a Balloon, Drug Eluting Stent, Balloon, and Balloon. Recommendations * Continue aspirin and Plavix for atleast 1 year. * High intensity statin therapy. * Outpatient cardiology follow up in 1 month. Interventional RX Recommendation: PCI w/o planned CABG Diagnostic RX Recommendation: PCI w/o planned CABG Anticoagulation: Heparin Pressures Phase:Rest AO : 118 / 49 ( 73 ) @ 7:06:00 AM 99 / 48 ( 71 ) @ 7:12:00 AM 97 / 41 ( 63 ) @ 7:17:00 AM 94 / 28 ( 60 ) @ 7:37:00 AM 94 / 56 ( 73 ) @ 7:39:00 AM 114 / 60 ( 84 ) @ 7:43:00 AM 212 / 65 ( 124 ) @ 7:46:00 AM 127 / 62 ( 92 ) @ 7:47:00 AM 100 / 38 ( 65 ) @ 7:48:00 AM 120 / 61 ( 87 ) @ 7:51:00 AM 133 / 67 ( 94 ) @ 7:57:00 AM 105 / 61 ( 81 ) @ 8:03:00 AM 108 / 63 ( 82 ) @ 8:19:00 AM Procedural Details Procedure Consent Obtained. Current Diagnosis : Chest Pain. Pre-Procedure Time Out. Identified patient by full name and date of as verbalized by the patient/guarantor. Does the consent match the physician's order: Yes. Accurate & Complete Informed Consent: Yes. Inpatient/Outpatient History & Physical on Chart: Yes. If H&P is completed, is and addenduem needed: No; If yes, is the addendum complete: N/A. Visualize and Verify Site with Patient/Guarantor: N/A. Relevant Radiology Images available: Yes. Pre-op teaching completed and patient verbalized understanding. The risks, benefits, and alternatives of sedation and/or procedure were discussed by physician. The patient agrees to continue. Procedure started. [facility] Clinical Fraility Score: 3: Managing Well. Icu Nurse Indications: Stable Known CAD. Chest Pain Symptom Assessment: Typical Angina Symptoms. Current diagnosis: Chest Pain. PERRLA. Strong, equal hand fractionation supervisor bilaterally. Lungs clear x 5 lobes. IV Site on Arrival: 20 gauge in the right wrist. IV Fluids: 0.9% NaCl at KVO. 0 mL infused prior to laborer airport maintenance. Pre Procedural Pulses: bilateral dorsalis pedis was 3+. Pre Procedural Pulses: bilateral posterior tibial was 3+. Pre Procedural Pulses: bilateral radial was 3+. Oxygen started at 2liters/min via nasal canula. bilateral groins was prepped with chloroprep then draped in the usual sterile fashion. Baseline sample Acquired. HR: 56 BPM. Physician notified. Patient's family unavailable. Physician arrived. Physician scrubbed in. Immediate Pre-Procedure Time Out. Correct Patient: Yes; Correct Procedure: Yes; Correct Site: Yes; Correct Patient Position: Yes; Correct Supplies: Yes; Dried Flammable Prep: Yes; Blood Products Available: N/A;. Lidocaine 1% infiltrated to the right groin. Arterial access obtained with micropuncture set. Inventory is CRD 6 FR XB 3.5 GUIDE. 6 tajik XB 3.5 guide catheter was inserted over the wire. WebSafetyer Advance coronary guidewire was advanced through the guide catheter to lesion in the prox LAD. ACT drawn. Results 441 seconds. Therapeutic limits - pre-heparin administration 90-150 seconds and monitoring heparin during a vascular procedure >250 seconds. 1.25 Diamondback coronary serafin inserted OTW and tested outside the body, then advanced OTW to the prox LAD. Athrectomy performed in the prox LAD. serafin removed OTW. Results checked. Inflation number : 1 A AB TREK 2.75X12 RX BALLOON was prepped and advanced across the Prox LAD , then inflated to 8 LOU for 0:23 seconds. Inflation number: 2 The AB TREK 2.75X12 RX BALLOON was reinflated across the Prox LAD, to 12 LOU for 0:25 seconds. Inflation number: 3 The AB TREK 2.75X12 RX BALLOON was reinflated across the Prox LAD, to 12 LOU for 0:17 seconds. Inflation number: 4 The AB TREK 2.75X12 RX BALLOON was reinflated across the Prox LAD, to 12 LOU for 0:23 seconds. Inflation number: 5 The AB TREK 2.75X12 RX BALLOON was reinflated across the Prox LAD, to 12 LOU for 0:23 seconds. Balloon out. Inflation Number : 6 A MDT R TREVIN 3.0X38 RADHA -Lot Number# _[id number] Exp: 11/13/2022 was prepped and advanced across the Prox LAD. The stent was deployed at 14 LOU for 0:33 seconds. Stent balloon out over wire. 3.25x12 NC Euphora inserted and advanced OTW. Balloon out. Runthrough guidewire was advanced through the guide catheter to lesion in the prox LAD. Viper wire out. Inflation number : 7 A MDT NC EUPHORA RX [id number] BALLOON was prepped and advanced across the Prox LAD , then inflated to 15 LOU for 0:21 seconds. Inflation number: 8 The MDT NC EUPHORA RX [id number] BALLOON was reinflated across the Prox LAD, to 15 LOU for 0:17 seconds. Inflation number: 9 The MDT NC EUPHORA RX 3.62L79ZH BALLOON was reinflated across the Prox LAD, to 12 LOU for 0:12 seconds. Balloon out. ACT drawn. Results 185 seconds. Therapeutic limits - pre-heparin administration 90-150 seconds and monitoring heparin during a vascular procedure >250 seconds. Results checked. Inflation number : 10 A MDT NC EUPHORA RX 3.92N04LW BALLOON was prepped and advanced across the Prox LAD , then inflated to 18 LOU for 0:17 seconds. Inflation number: 20 The MDT NC EUPHORA RX 3.07M07QD BALLOON was reinflated across the Prox LAD, to 18 LOU for 0:20 seconds. Inflation number: 18 The MDT NC EUPHORA RX 3.99F10BE BALLOON was reinflated across the Prox LAD, to 20 LOU for 0:07 seconds. Inflation number: 13 The MDT NC EUPHORA RX 3.13Q62ZO BALLOON was reinflated across the Prox LAD, to 18 LOU for 0:17 seconds. Balloon out. 3.25x12 NC Euphora inserted and advanced OTW. Balloon out. 3.5x8 NC Euphora balloon inserted and advanced OTW. balloon out. guideliner inserted. 3.5x8 NC Euphora balloon inserted and advanced OTW. balloon out. guideliner out. Wire out. Guide catheter out. A Right femoral angiogram was performed to determine safe placement of closure device. Angioseal placed without complications. No signs or symptoms of hematoma noted. Sterile dressing applied per usual sterile fashion. A Angio-Seal VIP (St. Jairon) was successful obtaining hemostatsis at the Right Femoral artery insertion site. Post Procedure: Pulses reassessed and unchanged. PERRLA. Strong, equal hand fractionation supervisor bilaterally. No VTE prophylaxis required. ACT drawn. Results 242 seconds. Therapeutic limits - pre-heparin administration 90-150 seconds and monitoring heparin during a vascular procedure >250 seconds. Medication's Wasted: Nitro = 48.8 mg. Medication's Wasted: Heparin = 3000 units. Medication's Wasted: Lidocaine 1% = 6 mL. Medication's Wasted: Other = Versed 1 mg. Total IV fluids: 391 mL. Contrast type used: Omnipaque 300 mgI/mL, 500 mL bottle. PCI Indication: CAD (without ischemic symptoms). Complications: None. Procedure completed. Patient transferred by bed to 1st floor. Vital chart was stopped. Access Site Site: Right Femoral artery Sheath Size: 6 Fr Hemostasis Method: Angio-Seal VIP ([facility]. Jairon) Hemostasis Success: Successful Procedure Medications Start: 7:50 AM Stop: 7:50 AM Medication: Versed 1 mg and Fentanyl 25 mcg Amount: 1 Route: I.V. Start: 7:59 AM Stop: 7:59 AM Medication: Versed Amount: 1 mg Route: I.V. Start: 7:59 AM Stop: 7:59 AM Medication: Fentanyl Amount: 50 mcg Route: I.V. Start: 8:07 AM Stop: 8:07 AM Medication: Heparin Amount: 8000 units Route: I.V. Start: 8:40 AM Stop: 8:40 AM Medication: Fentanyl Amount: 25 mcg Route: I.V. Start: 8:48 AM Stop: 8:48 AM Medication: Heparin Amount: 1000 units Route: I.V. Start: 9:02 AM Stop: 9:02 AM Medication: Heparin Amount: 3000 units Route: I.V. Start: 9:12 AM Stop: 9:12 AM Medication: Versed Amount: 0.5 mg Route: I.V. Start: 9:17 AM Stop: 9:17 AM Medication: Heparin Amount: 1000 units Route: I.V. Start: 9:20 AM Stop: 9:20 AM Medication: Fentanyl Amount: 25 mcg Route: I.V. Start: 9:21 AM Stop: 9:21 AM Medication: Versed Amount: 0.5 mg Route: I.V. Start: 9:23 AM Stop: 9:23 AM Medication: Plavix Amount: 300 mg Route: P.O. I, the attending physician, have reviewed and verified all procedure medications. Yes, all medications given per verbal order History/Risk Factors Hypertension: Yes Dyslipidemia: Yes Peripheral Arterial Disease (PAD): No Myocardial Infarction (OK): Yes Obesity: No Renal Disease: No Prior Interventions PCI: No CABG: Yes Valve Surgery: No Report Signatures Finalized by Jaiden Feliciano MD on 08/02/2021 11:42 AM
[2021-07-19 06:34] VITALS: BP 116/69; PULSE 61; RESP 16; TEMP 36.9; O2SAT 96
[2021-07-19] MEDS: diphenhydrAMINE 50 mg Capsule PO (06:44)
--- NOTE | 2021-07-19 09:41 | W.PM.OPSUD ---
Surgery/Procedure H&P Update DATE OF PROCEDURE: July 19, 2021 DATE H&P PERFORMED: 07/10/21 H&P UPDATE INFORMATION: I have reviewed H&P completed within last 30 days, I have examined patient prior to procedure and No changes to prior documentation PREOP DIAGNOSIS: Worsening Angina/ Severe proximal to mid LAD stenosis PRIMARY INDICATION FOR PROCEDURE: Worsening angina/ severe proximal to mid LAD stenosis PLANNED PROCEDURE: Operation Date: 07/19/21 07:00 Proposed Procedures p Cardiac Catheterization(Left) - Jaiden Feliciano M.D Possible percutaneous coronary intervention PATIENT REASSESSED PRIOR TO SEDATION, WITH NO CHANGE NOTED: Yes PHYSICAL EXAM: alert, oriented x 3, clear to auscultation bilaterally and regular rate & rhythm AIRWAY EVAL/ANESTHESIA PLAN: ASA III, Risks, benefits & alternatives of sedation and/or procedure discussed and Patient agrees to continue as planned
[2021-07-19 09:58] VITALS: BP 96/61; PULSE 64; RESP 19; TEMP 36.8; O2SAT 95
--- NOTE | 2021-07-19 11:08 | PC.CHAP ---
Pastoral Care Encounter/Spiritual Assessment Type of Contact [] Declined clay transporter visit [] Patient/Family/Request visit [] Outpatient visit [] Follow-up visit [] Physician referral [] Code/Alert [x] Routine visit [] Staff referral [] Actively dying [] Patient sleeping [] Family support [] [] Out of room [] Palliative care [] [] Receiving care in room [] Pre-surgical visit [] Trauma [] Long length of stay [] ICU visit [] Other: Relational/Emotional Strength [x] Patient feels connected with others/family/visitors/staff [] Distress [] Loneliness/isolation [] Abandonment Spirituality of Patient [x] Person of Radha [x] Attends Taoism of their Radha [x] Believes in Prayer [] Reads Bible or Gnosticism materials [] There are Spiritual issues to be addressed Tax Examiner Interventions [x] Prayer [x] Active listening [x] Non-anxious presence [] Spiritual/emotional support [] Crisis/trauma care [] Spiritual counseling [] Bereavement support [] Provided bereavement packet [] Provided Bible/devotional materials [] Provided toy/stuffed animal, coloring book to patient or family member [] Provided Communion [] Anointing/Tingley [] Salvation [x] Completed spiritual assessment [] Other: Impact on Illness or Injury [] Angry [] Fearful [] Anxious [] Often cries [] Exhaustion [] Unable to work [] Unable to attend alevism [] Unable to walk/stand [] Unable to read [] Unable to drive [] Unable to eat/drink [] Unable to sleep [] Unable to be with family [] Patient intubated [] Other: Summary 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 Very upbeat in spirit. A person of radha who attends alevism Time spent with patient 15m
[2021-07-19 11:10] VITALS: PULSE 63; O2SAT 97
[2021-07-19] MEDS: baclofen 10 mg Tablet PO ×2 (16:21→20:52)
[2021-07-19] MEDS: TRANYLCYPROMINE 10 MG 30 EACH PO (18:54)
--- NOTE | 2021-07-19 20:04 | PC.NURSE ---
Shift Note Frequent safety and comfort rounds continue. Orders and/or nursing care completed as indicated. Patient monitored for response to intervention and treatment(s). Education provided includes site care and restrictions. Patient and/or independent sales representative verbalized understanding. Will continue to monitor.
[2021-07-19 22:00] VITALS: PULSE 66
[2021-07-19 23:36] VITALS: BP 98/65; PULSE 72; RESP 20; TEMP 36.6; O2SAT 96
[2021-07-20 04:35] VITALS: BP 96/58; PULSE 70; RESP 13; TEMP 36.6; O2SAT 94
[2021-07-20 05:24] LABS: Basophils # 0.1 10^3/uL (0.0-0.1); Basophils % 0.9 %; Eosinophils # 0.2 10^3/uL (0.0-0.8); Eosinophils % 3.1 %; Hematocrit 32.8 % (37.0-47.0); Hemoglobin 10.3 g/dL (11.5-15.3); Lymphocytes # 1.7 10^3/uL (0.8-4.8); Lymphocytes % 24.4 %; Mean Corpuscular HGB Conc 31.4 g/dL (30.0-36.0); Mean Corpuscular Hemoglobin 30.5 pg (28.0-34.0); Mean Platelet Volume 11.3 fL (7.4-10.4); Monocytes # 0.8 10^3/uL (0.2-0.9); Monocytes % 11.9 %; Neutrophils # 4.05 10^3/uL (1.8-7.7); Neutrophils % 59.6 %; Nucleated Red Blood Cells % 0 %; Platelet Count 186 10^3/cmm (130-400); Red Blood Count 3.38 10^6/uL (4.1-5.3); White Blood Count 6.8 10^3/uL (4.0-10.0)
[2021-07-20 05:41] LABS: Anion Gap 11.6 (5-19); Blood Urea Nitrogen 19 mg/dL (8-23); Calcium 8.2 mg/dL (8.5-10.5); Carbon Dioxide 29 mmol/L (22-29); Chloride 104 mmol/L (98-107); Glomerular Filtration Rate 71.5 mL/min (90-130); Glucose 107 mg/dL (65-115); Osmolality Calculated 295 mOsm/kg (285-295); Potassium 3.6 mmol/L (3.5-5.1); Sodium 141 mmol/L (136-145)
[2021-07-20 06:00] VITALS: PULSE 66
[2021-07-20] MEDS: multivitamin therapeutic Tablet 1 TAB PO (06:11)
--- NOTE | 2021-07-20 06:49 | PC.NURSE ---
Shift Note Frequent safety and comfort rounds continue. Orders and/or nursing care completed as indicated. Patient monitored for response to intervention and treatments. Education provided includes activity assist, reportable signs and symptoms. Patient and/or customer solutions representative verbalized understanding of all teaching.
[2021-07-20 08:55] VITALS: BP 95/60; PULSE 71; RESP 21; TEMP 36.7; O2SAT 92
--- NOTE | 2021-07-20 08:59 | P.SS_ITS ---
Short Stay Summary Providers Date of Admit/Discharge: 07/19/21 Attending Provider: Jaiden Feliciano M.D Primary Care Provider: Venancio Mota MD Chief Complaint: [facility] HPI History of Present Illness Rebecca Coombs is a 66 year old female with past medical history of coronary artery disease, tobacco abuse, bypass surgery, COPD, hypertension, dyslipidemia and a prior ID who has been having worsening chest pain over the last several weeks. Mention it is substernal and mostly exertional but has noted some rest pains as well. Because of hypotension,her medical therapy could not be uptitrated. She has been using nitros. Patient had coronary angiogram last week which showed severe heavily calcified proximal to mid LAD stenosis. Plan is to perform PCI with coronary arthrectomy. Review of Systems Const: Reports: body aches (legs with activity. ) and fatigue; Denies: fever(s) or chills Eyes: Denies: change in vision or blurry vision ENMT: Reports: nasal discharge and nasal congestion; Denies: throat pain or odynophagia Card: Reports: chest pain, palpitations, swelling of feet/ankles (scant amounts), lightheadedness and dyspnea on exertion; Denies: irregular heart rhythm, syncope, pre-syncope or orthopnea Resp: Denies: dyspnea, productive cough or non-productive cough GI: Denies: nausea, vomiting, diarrhea, hematochezia or melena : Denies: difficulty voiding or dysuria Musc: Denies: neck pain or back pain Skin/Breast: Denies: rash or erythema Neuro: Reports: dizziness; Denies: headache(s), numbness in extremities, weakness in extremities or frequent falls Psych: Reports: anxiety and depression Endo: Denies: polyuria or polydipsia Jovany/Lymph: Reports: easy bruising and easy bleeding All/Imm: Reports: seasonal rhinorrhea Home Meds/Allergies Home Medications and Allergies Home Medications Medication Instructions Recorded Confirmed Type ascorbate calcium (vitamin C) 500 500 mg PO DAILY tab 12/08/19 07/18/21 History mg tablet fluticasone furoate 50 See Rx Instructions INHALATION 12/08/19 07/18/21 History mcg/actuation blister powder for DAILY each inhalation furosemide 40 mg tablet 40 mg PO QAM 12/08/19 07/18/21 History lovastatin 40 mg tablet 40 mg PO BEDTIME tab 12/08/19 07/18/21 History magnesium 250 mg tablet 250 mg PO DAILY 12/08/19 07/18/21 History multivitamin 1 tab PO QAM 12/08/19 07/18/21 History omega 3-dha 500 mg-epa 100 mg-fish See Rx Instructions PO DAILY cap 12/08/19 07/18/21 History oil capsule omeprazole 20 mg capsule,delayed 20 mg PO BID 12/08/19 07/18/21 History release fluticasone propion-salmeterol 1 puff INHALATION BID 01/01/20 07/18/21 History [Wixela Inhub] potassium chloride 20 meq PO DAILY 01/01/20 07/18/21 History aspirin 81 mg tablet,delayed 81 mg PO DAILY 08/30/20 07/18/21 History release baclofen 10 mg tablet 10 mg PO TID 04/05/21 07/18/21 History cholecalciferol (vitamin D3) 50 1,000 unit PO DAILY tab 06/01/21 07/18/21 History mcg (2,000 unit) tablet Allergies Allergy/AdvReac Type Severity Reaction Status Date / Time epinephrine Allergy Unknown Unknown Verified 07/04/21 09:51 Nuuifrl-Qel-Kik Reductase Allergy Unknown Unknown Verified 07/04/21 09:51 Inhibitor pregabalin [From Lyrica] Allergy Unknown Verified 07/18/21 08:15 codeine AdvReac Unknown Unknown Verified 07/04/21 09:51 gabapentin [From Neurontin] AdvReac Unknown Unknown Verified 07/04/21 09:51 methadone AdvReac Unknown Unknown Verified 07/04/21 09:51 oxycodone [From OxyContin] AdvReac Unknown Unknown Verified 07/04/21 09:51 tramadol AdvReac Unknown Unknown Verified 07/04/21 09:51 PFSH Acute PFSH: Medical History CAD (coronary artery disease) COPD (chronic obstructive pulmonary disease) HTN (hypertension) Hypercholesterolemia Ischemic bowel disease Major depressive disorder, recurrent, in full remission Myocardial infarction Panic disorder Tobacco abuse Warfarin anticoagulation Surgical History H/O cardiac catheterization H/O hysterectomy with oophorectomy H/O rotator cuff surgery History of right shoulder replacement Hx of appendectomy S/p bilateral carpal tunnel release S/P CABG x 4 S/P right hemicolectomy 01/01/2020 Status post colonoscopy Status post laparoscopic cholecystectomy 01/01/2020 Social History Smoking and tobacco status: former smoker (last month) Quit status (tobacco): has quit using tobacco Second hand smoke exposure: No Smoking risk assessment/counseling performed?: No Reason smoking risk assessment not done: other Marital status: Current occupational status: retired Vitals/I&O/Wt Last Vital Signs Temp 98 F 07/20/21 04:35 Pulse 66 07/20/21 06:00 Resp 13 07/20/21 04:35 BP 96/58 07/20/21 04:35 Pulse Ox 94 07/20/21 04:35 07/19/21 07/20/21 07/20/21 22:59 06:59 14:59 Intake Total 100 / 460 Balance 100 / -1390 Weight last 48 hrs Weight 192 lb Physical Exam Narrative: EXAM NARRATIVE: GENERAL: Patient is alert, awake and oriented x3. [] NECK: No jugular vein distension. [] HEENT: No cyanosis. No icterus. No pallor. [] HEART: Regular S1 and S2. No murmur, rub or gallop. [] LUNGS: Clear to auscultate bilaterally. [] ABDOMEN: Soft, nontender and nondistended. Positive bowel sounds. No guarding, rebound or tenderness. [] CENTRAL NERVOUS SYSTEM: Grossly nonfocal. [] EXTREMITIES: Lower extremities with 1+ edema bilaterally. Pulses palpable in the lower extremities, both dorsalis pedis and posterior tibial. [] Hospital Course Hospital Course 66-year-old female with past medical history of coronary artery disease, tobacco abuse, bypass surgery, COPD, hypertension, dyslipidemia and a prior ID who has been having worsening chest pain over the last several weeks. Mention it is substernal and mostly exertional but has noted some rest pains as well. Because of hypotension,her medical therapy could not be uptitrated. She has been using nitros. Patient underwent coronary angiogram last week which showed severe proximal to mid LAD heavily calcified stenosis. This was confirmed with FFR value of 0.79. She came for staged PCI of proximal to mid LAD with coronary arthrectomy. She underwent successful PCI with RADHA x1. Patient was under observation overnight and did well. Denies any complaints of chest pain, shortness of breath or palpitations. Her blood pressure readings were soft. Her metoprolol dose will be down titrated to 12.5 mg twice daily. She will be discharged with aspirin and Plavix. SSS Data Data Completed and Pending: Pending at discharge Category Date Time Status FINANCIAL SUPERVISOR request for service Routin e Exams 07/19/21 06:00 Taken Discharge Plan Discharge Patient Disposition: Home Condition: Stable Prescriptions: Continued lovastatin 40 mg tablet 40 mg PO BEDTIME RF: 0 omeprazole 20 mg capsule,delayed release(DR/EC) 20 mg PO BID RF: 0 furosemide [Lasix] 40 mg tablet 40 mg PO QAM RF: 0 fluticasone furoate 50 mcg/actuation blister with device See Rx Instructions INHALATION DAILY RF: 0 multivitamin [Daily Multi-Vitamin] Tablet 1 tab PO QAM RF: 0 ascorbate calcium (vitamin C) 500 mg tablet 500 mg PO DAILY RF: 0 magnesium 250 mg tablet 250 mg PO DAILY RF: 0 omega 0-nbp-kpo-fish oil 500-100 mg capsule See Rx Instructions PO DAILY RF: 0 cholecalciferol (vitamin D3) 50 mcg (2,000 unit) tablet 1,000 unit PO DAILY RF: 0 aspirin [Adult Aspirin Regimen] 81 mg tablet,delayed release (DR/EC) 81 mg PO DAILY RF: 0 baclofen 10 mg tablet 10 mg PO TID RF: 0 nitroglycerin 0.4 mg tablet, sublingual 0.4 mg sublingual Q5M PRN (Reason: chest pain) Qty: 60 RF: 3 alprazolam [Xanax] 1 mg tablet 1 mg PO TID Qty: 90 RF: 5 tranylcypromine [Parnate] 10 mg tablet 30 mg PO BID Qty: 180 RF: 5 potassium chloride 20 mEq Tablet,Er Particles/Crystals 20 meq PO DAILY RF: 0 fluticasone propion-salmeterol [Wixela Inhub] 100-50 mcg/dose Blister With Device 1 puff INHALATION BID RF: 0 acetaminophen 650 mg Suppository 650 mg NJ Q4H PRN (Reason: Mild Pain Or Increase Temp) Qty: 90 RF: 0 clopidogrel [Plavix] 75 mg tablet 75 mg PO DAILY Qty: 90 RF: 3 Changed metoprolol tartrate 25 mg tablet 12.5 mg PO BID Qty: 0 RF: 0 Discharge Orders: Discharge Order (Routine); Ordered 07/20/21 Ordered By: Jaiden Feliciano Referrals: Jaiden Feliciano M.D [Physician] - 08/29/21 2:45 pm (You have a cardiology followup with Dr. Feliciano at [facility] on August 29 at 2:45pm) Natalie Pearson FNP [Nurse Practitioner] - 07/27/21 10:15 am (You have a post pro cedure followup with CALLY James at [facility] on July 27 at 10:15am) Discharge Diet: Cardiac Discharge Activity: Increase activity as tolerated Patient Instructions: Coronary Angioplasty (DC) Activity Restrictions/Additional Instructions: Please do not lift more than 5 pounds of weight for the next 5 days Attestations Medical Necessity Statement*: Care not expected to cross 2 midnights. Time Spent in Patient Care*: less than 30 min Quality Metrics Clinical Quality Measures: During this hospital stay, did patient experience: None Coding Level of Care Code Acute Attending Pathologist for Lillian Yang
[2021-07-20] MEDS: baclofen 10 mg Tablet PO (09:03)
[2021-07-20] MEDS: aspirin 81 mg EC Tablet PO (09:03)
[2021-07-20] MEDS: pantoprazole DR 40 mg Tablet PO (09:03)
[2021-07-20] MEDS: metoprolol tartrate 25 mg Tablet PO (09:03)
[2021-07-20] MEDS: clopidogrel 75 mg Tablet PO (09:03)
[2021-07-20] MEDS: potassium chloride ER 20 mEq Tablet PO (09:03)
[2021-07-20] MEDS: cholecalciferol (vitamin D3) 1,000 unit Tablet 2000 UNIT PO (09:03)
[2021-07-20] MEDS: ascorbic acid 500 mg Tablet PO (09:05)
--- NOTE | 2021-07-20 10:13 | PC.NURSE ---
Discharge Note Patient discharged to home via ambulation accompanied by granddaughter. Discharge instructions reviewed with patient and/or sales representative aircraft. Mobile pharmacy medications and/or prescriptions provided. Belongings/home medications returned. Discharge packet and stent card provided to pt.
== END 2021-07-20 10:13 | disposition home or self-care (01) ==
LOC: CCL 06:09 → CSU 10:30
PROVIDERS: PCP Family Medicine; Visit Provider Internal Medicine
DX: I25.84 Coronary atherosclerosis due to calcified coronary lesion (principal); I25.10 Atherosclerotic heart disease of native coronary artery without angina pectoris; R07.9 Chest pain, unspecified; F17.210 Nicotine dependence, cigarettes, uncomplicated; Z95.1 Presence of aortocoronary bypass graft; J44.9 Chronic obstructive pulmonary disease, unspecified; I10 Essential (primary) hypertension; E78.5 Hyperlipidemia, unspecified; I25.2 Old myocardial infarction
CPT/HCPCS: 36415; 51702; 80048; 85025; 85347; C1724; C1725; C1760; C1769; C1874; C1887; C1894; C9602; J1644; J2250; J3010; J3490; J7030; Q0163; Q9967

== ENCOUNTER → 2021-07-27 11:20 | Outpatient (BNVA) | payer MEDICARE, SELFPAY | PROVIDERS: PCP Family Medicine; Visit Provider Nurse Practitioner Family | DX: I25.119 Atherosclerotic heart disease of native coronary artery with unspecified angina pectoris (principal); Z09 Encounter for follow-up examination after completed treatment for conditions other than malignant neoplasm | CPT/HCPCS: 80048 ==

== ENCOUNTER → 2021-08-30 13:44 | Outpatient (BNVA) | payer MEDICARE, SELFPAY | PROVIDERS: PCP Family Medicine; Visit Provider Psychiatry & Neurology Psychiatry | DX: F33.42 Major depressive disorder, recurrent, in full remission (principal); F41.0 Panic disorder [episodic paroxysmal anxiety] | CPT/HCPCS: 99214 ==

== ENCOUNTER 2021-09-22 08:28 | Outpatient (CLI) | payer MEDICARE, SELFPAY ==
--- NOTE | 2021-09-22 08:40 | MR_ITS ---
WS: [id number] MRI LUMBAR SPINE NONCONTRAST TECHNIQUE: Sagittal T1, T2 and STIR imaging. Axial T1 and T2 imaging. CLINICAL INFORMATION: BACK PAIN,CHRONIC COMPARISON: None. FINDINGS: Mild lumbar curve. No acute compression. No high-grade central canal stenosis. Mild disc bulging L4-5 . Small acute appearing compression fracture superior endplate L1 eccentric to the right. Minimal los s vertebral body height. No retropulsion. L1-L2: Normal. L2-L3: Mild annular bulging with slight effacement of the ventral thecal sac. Mild facet arthropathy. Tiny bilateral foraminal protrusions with mild proximal foraminal narrowing. L3-L4: Mild annular bulging with slight effacement of the ventral thecal sac. Moderate facet arthropa thy with small facet effusions. Mild left foraminal narrowing. L4-L5: Mild disc bulging eccentric to the right with impingement on the traversing L5 nerve root in t he subarticular recess. Mild central canal stenosis. Recommend correlation for right L5 nerve root sy mptoms. Small bilateral foraminal protrusions with mild to moderate right and mild left foraminal marcos rowing. Moderate facet arthropathy and ligamentum hypertrophy with small facet effusions. L5-S1: Minimal annular bulging. Osteophytic ridging. Spinal canal and foramen are patent. Tiny facet effusions. Moderate facet arthropathy ligamentum flavum hypertrophy. Spinal canal is patent. Visualized pelvic bony structures: Normal. Paravertebral soft tissues: Normal. MR/MR lumbar spine wo con* [id number] IMPRESSION: 1. Mild lumbar curve. No high-grade central canal stenosis. 2. Mild compression superior endplate at L1 with edema. Minimal loss vertebral body height. Findings consistent with mild acute compression. 3. Annular bulging L4-5 with a shallow right pericentral protrusion. This impi nges the right subarticular recess and traversing right L5 nerve root with mild central canal stenosis. 4. Mild to moderate right L4-5 foraminal narrowing with small right foraminal protrusion. 5. Moderate facet arthropathy L3-L5 with small facet effusions likely degenera tive/inflammatory.
== END 2021-09-22 08:29 | disposition home or self-care (01) ==
PROVIDERS: PCP Family Medicine; Visit Provider Family Medicine
DX: G89.29 Other chronic pain (principal); M47.816 Spondylosis without myelopathy or radiculopathy, lumbar region; M51.26 Other intervertebral disc displacement, lumbar region
CPT/HCPCS: 72148

== ENCOUNTER 2021-10-03 08:20 | Outpatient (CLI) | payer MEDICARE, SELFPAY ==
--- NOTE | 2021-10-03 08:32 | ECG_ITS ---
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 Interpretive Statements NAME OF STUDY: LEXISCAN SESTAMIBI STRESS TEST INDICATION: [Chest Pain, ] Procedure: At the baseline, the blood pressure was 106/59 mmHg with a heart rate of 55 bpm. The electrocardiogram showed sinus bradycardia, normal axis with normal ST and T's. The Lexiscan was infused over a period of 20 seconds. A total of 0.4 mg of Lexiscan was infused. The stress phase was continued for a total of 5 minutes. Heart rate was at the end of stress phase was 64 bpm and a blood pressure of 79/47 mmHg. The EKG at the peak infusion revealed normal sinus rhythm with no significant ST-T wave changes. Sestamibi was injected 20 seconds after the Lexiscan infusion. Blood pressure at the end of recovery phase was 106 / 55 mmHg with a heart rate of 64 bpm. Conclusion: 1. Normal EKG response to Lexiscan infusion 2. No Lexiscan induced chest pain or cardiac arrhythmia. 3. Hypertensive blood pressure response, normal heart rate response. 4. Sestamibi/sestamibi perfusion scan pending; see separate report. Electronically Signed On 10-09-2021 11:24:44 TRUCK AND TRANSPORT MECHANIC by Jaiden Feliciano M.D. [email or web address] [email or web address], [id number]
--- NOTE | 2021-10-03 08:33 | NMCV_ITS ---
NM siomara perf SPECT r/s* [id number] Rebecca Coombs Age: 66 Gender: F : 1955 Exam Date: 10/03/2021 09:32 Ordering Phys: Jaiden Feliciano M.D ([email or web address]) Technologist: PRIYA Cabrera Exam Location: [facility] Indications: CHEST PAIN STRESS TEST Please [facility] IMAGE PROTOCOL Rest/Stress 1 Lexiscan Day Radiopharmaceutical Dose (mCi) Administration Site Administered by Rest: Tc-99m 10.6 IV PRIYA Ordoñez Sestamibi Stress:Tc-99m 32.1 IV PRIYA Ordoñez Sestamibi Rest: 03-Oct-2021 60 Discovery 630 Stress: 03-Oct-2021 30 Discovery 630 0.4mg Lexiscan. Supine position only as patient was unable to lay prone. SPECT RESULTS Technical Quality: Excellent Raw Data Analysis: Normal Image Corrections: No attenuation or motion correction applied Summed Stress Score: 17 Summed Rest Score: 3 Summed Difference Score: 14 PERFUSION FINDINGS There is a large sized mostly reversible perfusion defect noted in apical, anterior, inferolateral and inferior wall. This is consistent with ischemia in these territories. FUNCTIONAL RESULTS (calculated via Gated SPECT) Stress Image LV EF (%): 69 Stress EDV (mL):109 TID: 0.93 Stress ESV (mL):34 FUNCTIONAL FINDINGS: There is normal left ventricular systolic function. IMPRESSIONS 1. Abnormal myocardial perfusion imaging with large area of ischemia in apical, anterior, inferolateral and inferior hernandes. 2. LV systolic function is normal Jaiden Feliciano MD (Electronically Signed) Final Date: 07 October 2021 21:22 S
[2021-10-03 08:49] VITALS: BMI 28.7
[2021-10-03] MEDS: regadenoson 0.4 Mg/5 ml Syringe IVP (10:10)
[2021-10-03 10:25] VITALS: BP 106/55; PULSE 65
== END 2021-10-03 08:21 | disposition home or self-care (01) ==
LOC: CDL 08:23
PROVIDERS: PCP Family Medicine; Visit Provider Internal Medicine
DX: R07.9 Chest pain, unspecified (principal); R06.02 Shortness of breath
CPT/HCPCS: 78452; 93017; A9500; J2785

== ENCOUNTER → 2021-10-31 10:24 | Outpatient (BNVA) | payer MEDICARE, SELFPAY | PROVIDERS: PCP Family Medicine; Visit Provider Internal Medicine | DX: Z01.818 Encounter for other preprocedural examination (principal); Z20.822 Contact with and (suspected) exposure to COVID-19 | CPT/HCPCS: 80048; 85025; 85610; 87635 ==

== ENCOUNTER → 2021-11-01 12:45 | Outpatient (BNVA) | payer MEDICARE, SELFPAY | PROVIDERS: PCP Family Medicine; Visit Provider Social Worker | DX: F32.9 Major depressive disorder, single episode, unspecified (principal) | CPT/HCPCS: 90834 ==

== ENCOUNTER 2021-11-03 15:00 | Observation (INO) | payer MEDICARE, SELFPAY ==
[2021-11-03] VITALS (40 sets, daily range): BP systolic 83–129; BP diastolic 45–82; PULSE 59–88; RESP 10–30; TEMP 36.5–36.6; O2SAT 90–96; BMI 28.7
--- NOTE | 2021-11-03 12:00 | XACV_ITS ---
Ht: 173 cm Wt: 86 kg BSA: 2.05 m2 Gender: Female : 1955 Any Known Allergies: Other Exam Priority: Routine Procedure(s): Procedure Description: Diagnostic procedure Procedure Description: PCI procedure Procedure Description: Coronary IVUS Procedure Description: PTCA Procedure Description: Coronary Angiography Diagnostic Cath Status: Elective Diagnostic Findings * Proximal circumflex artery has moderate disease.. * Proximal Left Anterior Descending: Has an area of underexpansion in the proximal stent with 30 to 40% narrowing. LUCIE: 3 flow. * SVG to RCA is occluded. SVG to OM is occluded. * JIANG was not used as a graft.. * Indication: Patient had undergone revascularization of heavily calcified proximal to mid LAD stenosis with orbital arthrectomy and PCI. Several weeks post PCI, she developed having exertional chest pain that was worsening and radiating to the jaw. She was started on Ranexa and a stress test was obtained. With medications her chest pain has improved significantly however stress test showed a large area of ischemia in the LAD territory. Plan for coronary angiogram today. * Left Main has no disease. * Mid Right Coronary Artery: total occlusion, LUCIE: 0 flow. * Ascending Aorta to 1st Diagonal graft: patent. * Coronary angiography shows right dominance. PCI Status: Elective PCI Indication: Other Interventional Findings * Procedure detail: Given pinched and underexpanded proximal LAD stent, we decided to perform IVUS evaluation. IVUS of proximal LAD showed significant underexpansion of the stent. We decided to perform balloon angioplasty with 3.25 x 15 mm NC balloon. It was performed at high pressures. Improvement in narrowing of the stent was noted. Repeat IVUS showed significant improvement in stent expansion. Patient left the Eeg Technologist in stable condition. * Proximal Left Anterior Descendin% stenosis treated with a MDT AUGUST VILLAREALPHORA RX [id number] BALLOON. 10% residual stenosis, LUCIE: 3 flow. Conclusions 1. Severe multivessel 2. [place] coronary artery disease. 3. Patent SVG 4. to 5. diagonal artery.. 6. Proximal 7. LAD stent was 8. significantly underexpanded 9. and underwent 10. high-pressure balloon angioplasty 11. with 12. noncompliant balloon. 13. Significant improvement on IVUS and angiogram noted.. 14. One coronary graft visualized: all grafts patent. 15. Patient has prior CABG. Recommendations * Transfer to [facility]. * Dual antiplatelet therapy with aspirin and Plavix for at least 1 year. * Continue Ranexa. * Outpatient cardiology follow-up in 4 weeks. Interventional RX Recommendation: PCI w/o planned CABG Diagnostic RX Recommendation: PCI w/o planned CABG Anticoagulation: Heparin Pressures Phase:Rest AO : 82 / 51 ( 66 ) @ 11:17:00 AM 154 / 61 ( 93 ) @ 11:50:00 AM 125 / 57 ( 86 ) @ 11:55:00 AM LV : 106 / -17 / 7 @ 11:16:00 AM Clinical Evaluation EBL: 5mL-10mL Procedural Details Procedure Consent Obtained. Pre-Procedure Time Out. Identified patient by full name and date of as verbalized by the patient/guarantor. Does the consent match the physician's order: Yes. Accurate & Complete Informed Consent: Yes. Inpatient/Outpatient History & Physical on Chart: Yes. If H&P is completed, is and addenduem needed: N/A; If yes, is the addendum complete: N/A. Visualize and Verify Site with Patient/Guarantor: N/A. Relevant Radiology Images available: Yes. Pre-op teaching completed and patient verbalized understanding. The risks, benefits, and alternatives of sedation and/or procedure were discussed by physician. The patient agrees to continue. Procedure started. Correct patient, site and procedure confirmed by cath team. PERRLA. Strong, equal hand customer support technician bilaterally. Lungs clear x 5 lobes. IV Site on Arrival: 20 gauge in the right anticubital. IV Fluids: 0.9% NaCl at KVO. 0 mL infused prior to clinical lab clerk. Oxygen started at 2liters/min via nasal canula. bilateral groins was prepped with chloroprep then draped in the usual sterile fashion. Physician notified. Baseline sample Acquired. HR: 71 BPM. Equipment: 6F - Femoral. Cardiac Cath Pack. ACIST Manifold Kit Model BT 2000. Heparinized Saline (2 units/mL), 1000 mL bag. Kit, Micropuncture. Physician arrived. Physician scrubbed in. Immediate Pre-Procedure Time Out. Correct Patient: Yes; Correct Procedure: Yes; Correct Site: Yes; Correct Patient Position: Yes; Correct Supplies: Yes; Dried Flammable Prep: Yes; Blood Products Available: No;. Lidocaine 1% infiltrated to the right groin. Arterial access obtained with micropuncture set. A 5 portuguese JR4 catheter in over wire. Inventory is TR Glidewire Angled Stiff Shaft .035 260cm. glidewire inserted. EDP Sample taken: LV 106/-18,7; HR: 67 BPM; SpO2: 95%. Multiple views taken of right coronary artery. SVG's to OM visualized and patent. SVG to Diaganol occluded. SVG to RCA occluded. catheter removed. 6 portuguese XB 3.5 guide catheter was inserted over the wire. Catheter out. 6 portuguese XB 4 guide catheter was inserted over the wire. Multiple views taken of left coronary artery. IVUS run recorded. Catheter out. ACT drawn. Results 212 seconds. Therapeutic limits - pre-heparin administration 90-150 seconds and monitoring heparin during a vascular procedure >250 seconds. Inflation number : 1 A MDT NC EUPHORA RX [id number] BALLOON was prepped and advanced across the Prox LAD , then inflated to 22 LOU for 0:40 seconds. Inflation number: 2 The MDT NC EUPHORA RX [id number] BALLOON was reinflated across the Prox LAD, to 22 LOU for 0:48 seconds. Results checked. Balloon out. IVUS catheter inserted. IVUS Catheter out. A Suture was successful obtaining hemostatsis at the Right Femoral artery insertion site. Sheath(s) sutured into position with 2-0 silk and sterile 4x4's and Op-site applied over the site. No oozing or signs and symptoms of hematoma noted. PERRLA. Strong, equal hand customer support technician bilaterally. No VTE prophylaxis required. Complications: none. Estimated blood loss: 5mL-10mL. Responsiveness - Normal response to verbal stimuli; alert and oriented, PERRLA. Airway - Unaffected, no intervention required; spontaneous ventilation. Circulation: W/N/L, pulses unchanged. Nausea/Vomiting: No. Procedure completed. Patient transferred by bed to 1st floor. Post Procedure: Pulses reassessed and unchanged. Fluoro: 14:40. Contrast type used: Omnipaque 300 mgI/mL, 500 mL bottle. [id number]. Total IV fluids: 100 mL. Medication's Wasted: Nitro = 49.8 mg. Medication's Wasted: Lidocaine 1% = 10 mL. Post-op diagnosis: severe underexpand of prox LAD stent. [facility] Clinical Fraility Score: 3: Managing Well. Eeg Technologist Indications: Worsening Angina. Chest Pain Symptom Assessment: Typical Angina Symptoms. Vital chart was stopped. Access Site Site: Right Femoral artery Sheath Size: 6 Fr Hemostasis Method: Suture Hemostasis Success: Successful Procedure Medications Start: 1:07 PM Stop: 1:07 PM Medication: Versed Amount: 1 mg Route: I.V. Start: 1:07 PM Stop: 1:07 PM Medication: Fentanyl Amount: 50 mcg Route: I.V. Start: 1:11 PM Stop: 1:11 PM Medication: Versed Amount: 1 mg Route: I.V. Start: 1:11 PM Stop: 1:11 PM Medication: Fentanyl Amount: 50 mcg Route: I.V. Start: 1:34 PM Stop: 1:34 PM Medication: Heparin Amount: 8000 units Start: 1:46 PM Stop: 1:46 PM Medication: Heparin Amount: 2000 units Route: I.V. Start: 1:57 PM Stop: 1:57 PM Medication: Nitrogylcerin Amount: 200 mcg Route: I.C. I, the attending physician, have reviewed and verified all procedure medications. Yes, all medications given per verbal order History/Risk Factors Hypertension: Yes Dyslipidemia: Yes Peripheral Arterial Disease (PAD): No Myocardial Infarction (IA): Yes Obesity: No Renal Disease: No Tobacco Use: Former Prior Interventions PCI: Yes CABG: Yes Valve Surgery: No Report Signatures Finalized by Jaiden Feliciano MD on 11/21/2021 06:59 AM
[2021-11-03] MEDS: diphenhydrAMINE 50 mg Capsule PO (12:40)
--- NOTE | 2021-11-03 14:28 | W.PM.OPSUD ---
Surgery/Procedure H&P Update DATE OF PROCEDURE: November 03, 2021 DATE H&P PERFORMED: 10/04/21 PREOP DIAGNOSIS: Worsening Angina/ abnormal stress test PLANNED PROCEDURE: Operation Date: 11/03/21 13:00 Proposed Procedures p Cardiac Catheterization(Left) - Jaiden Feliciano M.D Possible percutaneous coronary intervention PATIENT REASSESSED PRIOR TO SEDATION, WITH NO CHANGE NOTED: Yes PHYSICAL EXAM: alert, oriented x 3, clear to auscultation bilaterally and regular rate & rhythm AIRWAY EVAL/ANESTHESIA PLAN: ASA III, Monitored Anesthesia, Local Anesthesia, Risks, benefits & alternatives of sedation and/or procedure discussed and Patient agrees to continue as planned
--- NOTE | 2021-11-03 14:45 | PC.NURSE ---
Pt arrived from seed laboratory assistant to room 101-1 at approximately 1415. Pts has cardiac sheath in Right groin connected to pressure bag. Insertion site drsg dry and intact, No swelling, hematoma, or bleeding noted. Pt had no c/o pain or discomfort at the present time. Pt teaching was given on lying and staying in a flat supine position and keeping the right leg flat and still. Pt verbalized understanding. No needs voiced at the present time. Call light in reach. Will cont to monitor.
[2021-11-03] MEDS: ranolazine (12HR) 500 mg Tablet PO (17:12)
[2021-11-03] MEDS: acetaminophen 325 mg Tablet 650 MG PO ×2 (17:13→22:41)
[2021-11-03] MEDS: metoprolol tartrate 25 mg Tablet 12.5 MG PO (17:13)
[2021-11-03] MEDS: baclofen 10 mg Tablet PO ×2 (17:13→20:53)
[2021-11-03 18:28] LABS: Partial Thromboplastin Time 68.1 SECONDS (23.9-36.7)
--- NOTE | 2021-11-03 19:45 | PC.NURSE ---
Bedside report given to VALENCIA Spain at approximately 1930. Pts right groin site drsg dry and intact, no swelling, hematoma, or bleeding noted from sheath insertion site at the present time. Pt had no c/o pain or discomfort at the present time. No needs voiced. Call light in reach. Will cont to monitor.
[2021-11-03 20:33] LABS: Partial Thromboplastin Time 28.6 SECONDS (23.9-36.7)
[2021-11-03] MEDS: ALPRAZolam 0.5 mg Tablet 0.25 MG PO (20:51)
[2021-11-03] MEDS: atorvastatin 40 mg Tablet 20 MG PO (20:52)
--- NOTE | 2021-11-03 22:19 | PC.NURSE ---
Patient stated, I pulled my bedpan out from under me. Patient educated to not do this without assistance due to post-cath activity restrictions. Patient states, oh, it will be fine, i know how to do it. Patient educated again to make sure and have assistance from trained personnel when doing this to prevent complications.
--- NOTE | 2021-11-03 22:50 | PC.NURSE ---
Patient upset that her xanax order was .25 instead of 1mg. Insisted that I call MD and get an order for 1mg. Received order for 1mg dose for one time. Patient then upset that she could not receive this as many times as she needs it. States that If I had my bottle here, I would take what I needed . Educated patient that she was not supposed to take home medications on top of medications given at this facility. Patient replied with yeah but if I had them I would take what I needed.
--- NOTE | 2021-11-03 22:56 | PC.NURSE ---
Sheath pulled at 2002, pressure held until 2022. No hematoma noted. Patient with no complaints of back pain or other concerns. Patient advised that she will have to not move right leg until 6 hours from now. Dressing to area of sheath removal. Will continue to monitor.
[2021-11-04 00:02] VITALS: BP 80/51; PULSE 67; RESP 18; O2SAT 92
--- NOTE | 2021-11-04 01:09 | PC.NURSE ---
Patient bp read 84/34 with map of 50. This RN went to assess patient and witnessed patient taking attempting to re-adjust or take off cuff. When this RN put cuff back on the appropriate way the new bp was 96/56 with map of 69. Will continue to monitor.
[2021-11-04 03:36] VITALS: BP 99/59; PULSE 63; RESP 14; TEMP 36.6
[2021-11-04 04:32] VITALS: PULSE 61
--- NOTE | 2021-11-04 04:45 | PC.NURSE ---
Frequent safety and comfort rounds continue. Orders and/or nursing care completed as indicated. Patient monitored for response to intervention and treatment(s). Education provided included need to keep right leg flat and not bent until the 6 hour window was complete to avoid hematoma. 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 Will continue to monitor.
[2021-11-04] MEDS: FUROsemide 40 mg Tablet PO (05:14)
[2021-11-04 07:29] VITALS: BP 106/60; PULSE 60; RESP 17; TEMP 36.6; O2SAT 98
[2021-11-04] MEDS: ranolazine (12HR) 500 mg Tablet PO (09:05)
[2021-11-04] MEDS: acetaminophen 325 mg Tablet 650 MG PO (09:05)
[2021-11-04] MEDS: metoprolol tartrate 25 mg Tablet 12.5 MG PO (09:06)
[2021-11-04] MEDS: clopidogrel 75 mg Tablet PO (09:06)
[2021-11-04] MEDS: baclofen 10 mg Tablet PO (09:06)
[2021-11-04] MEDS: aspirin 81 mg EC Tablet PO (09:06)
--- NOTE | 2021-11-04 10:24 | P.SS_ITS ---
Short Stay Summary Providers Date of Admit/Discharge: 11/03/21 Attending Provider: Jaiden Feliciano M.D Primary Care Provider: Venancio Mota MD Chief Complaint: 17625 abnormal result of other cardio function HPI History of Present Illness Rebecca Coombs is a 66 year old female with past medical history of coronary artery disease, tobacco abuse, bypass surgery, COPD, hypertension, dyslipidemia and a prior ME who had underwent orbital arthrectomy and PCI of proximal to mid LAD a few months ago. She started having chest pains again later. Ranexa was added that helped with symptoms but stress test showed a large sized, reversible perfusion defect in the LAD territory. Plan for cornary angiogram Review of Systems Const: Denies: fatigue Eyes: Denies: change in vision ENMT: Denies: throat pain Card: Denies: chest pain, palpitations, irregular heart rhythm, edema, swelling of feet/ankles, lightheadedness, syncope, pre-syncope, dyspnea on exertion, orthopnea or leg pain with exertion Resp: Denies: dyspnea GI: Denies: nausea or vomiting : Denies: difficulty voiding Musc: Denies: neck pain or back pain Skin/Breast: Denies: rash Neuro: Denies: weakness in extremities Psych: Denies: anxiety, depression, suicidal ideation or homicidal ideation Endo: Denies: tired all the time Jovany/Lymph: Reports: easy bruising and easy bleeding All/Imm: Denies: seasonal rhinorrhea Home Meds/Allergies Home Medications and Allergies Home Medications Medication Instructions Recorded Confirmed Type ascorbate calcium (vitamin C) 500 500 mg PO DAILY tab 12/08/19 11/02/21 History mg tablet fluticasone furoate 50 See Rx Instructions INHALATION 12/08/19 11/02/21 History mcg/actuation blister powder for DAILY each inhalation furosemide 40 mg tablet 40 mg PO QAM 12/08/19 11/02/21 History magnesium 250 mg tablet 250 mg PO DAILY 12/08/19 11/02/21 History multivitamin 1 tab PO QAM 12/08/19 11/02/21 History omega 3-dha 500 mg-epa 100 mg-fish See Rx Instructions PO DAILY cap 12/08/19 11/02/21 History oil capsule omeprazole 20 mg capsule,delayed 20 mg PO BID 12/08/19 11/02/21 History release fluticasone propion-salmeterol 1 puff INHALATION BID PRN 01/01/20 11/02/21 History [Wixela Inhub] potassium chloride 20 meq PO DAILY 01/01/20 11/02/21 History aspirin 81 mg tablet,delayed 81 mg PO DAILY 08/30/20 11/02/21 History release baclofen 10 mg tablet 10 mg PO TID 04/05/21 11/02/21 History cholecalciferol (vitamin D3) 50 1,000 unit PO DAILY tab 06/01/21 11/02/21 History mcg (2,000 unit) tablet acetaminophen 650 mg 650 mg PO Q8H 08/29/21 11/02/21 History tablet,extended release lovastatin 40 mg tablet 20 mg PO BEDTIME tab 09/14/21 11/02/21 History Allergies Allergy/AdvReac Type Severity Reaction Status Date / Time epinephrine Allergy Unknown Unknown Verified 11/03/21 12:56 Xpgzeno-MUY-TmS Reductase Allergy Unknown Unknown Verified 11/03/21 12:56 Inhibitor [Nftvoxn-Eoi-Ugx Reductase Inhibitor] pregabalin [From Lyrica] Allergy Unknown Verified 11/03/21 12:56 codeine AdvReac Unknown Unknown Verified 11/03/21 12:56 gabapentin [From Neurontin] AdvReac Unknown Unknown Verified 11/03/21 12:56 methadone AdvReac Unknown Unknown Verified 11/03/21 12:56 oxycodone [From OxyContin] AdvReac Unknown Unknown Verified 11/03/21 12:56 tramadol AdvReac Unknown Unknown Verified 11/03/21 12:56 PFSH Acute PFSH: Medical History CAD (coronary artery disease) COPD (chronic obstructive pulmonary disease) HTN (hypertension) Hypercholesterolemia Ischemic bowel disease Major depressive disorder, recurrent, in full remission Myocardial infarction Panic disorder Psychiatric care Tobacco abuse Warfarin anticoagulation Surgical History H/O cardiac catheterization H/O hysterectomy with oophorectomy H/O rotator cuff surgery History of right shoulder replacement Hx of appendectomy S/p bilateral carpal tunnel release S/P CABG x 4 S/P right hemicolectomy 01/01/2020 Status post colonoscopy Status post laparoscopic cholecystectomy 01/01/2020 Social History Quit status (tobacco): has quit using tobacco Second hand smoke exposure: No Smoking risk assessment/counseling performed?: No Reason smoking risk assessment not done: other Marital status: Current occupational status: retired Vitals/I&O/Wt Last Vital Signs Temp 97.9 F 11/04/21 07:29 Pulse 60 11/04/21 07:29 Resp 17 11/04/21 07:29 BP 106/60 11/04/21 07:29 Pulse Ox 98 11/04/21 07:29 11/03/21 11/04/21 11/04/21 22:59 06:59 14:59 Output Total 200 / 200 500 / 700 Balance -200 / -200 -500 / -700 Weight last 48 hrs Weight 189 lb Physical Exam Narrative: EXAM NARRATIVE: GENERAL: Patient is alert, awake and oriented x3. [] NECK: No jugular vein distension. [] HEENT: No cyanosis. No icterus. No pallor. [] HEART: Regular S1 and S2. No murmur, rub or gallop. [] LUNGS: Clear to auscultate bilaterally. [] ABDOMEN: Soft, nontender and nondistended. Positive bowel sounds. No guarding, rebound or tenderness. [] CENTRAL NERVOUS SYSTEM: Grossly nonfocal. [] EXTREMITIES: Lower extremities with 1+ edema bilaterally. Pulses palpable in the lower extremities, both dorsalis pedis and posterior tibial. [] Hospital Course Hospital Course Rebecca Coombs is a 66 year old female with past medical history of coronary artery disease, tobacco abuse, bypass surgery, COPD, hypertension, dyslipidemia and a prior ME who had underwent orbital arthrectomy and PCI of proximal to mid LAD a few months ago. She started having chest pains again later. Ranexa was added that helped with symptoms but stress test showed a large sized, reversible perfusion defect in the LAD territory. We performed coronary angiogram which showed patent stent but there was an area of pinching in the stent. IVUS was performed that showed an area of underexpansion at the site of calcification. High pressure balloon angioplasty was performed. Post angioplasty IVUS showed well expanded stent. Patient stayed in the hospital overnight. No compications were noted and he left the hospital in a stable condition. SSS Data Data Completed and Pending: Pending at discharge Category Date Time Status SPECIAL DELIVERY CARRIER request for service Routin e Exams 11/03/21 12:00 Taken Discharge Plan Discharge Patient Disposition: Home Condition: Stable Prescriptions: Continued acetaminophen [Tylenol Arthritis Pain] 650 mg tablet extended release 650 mg PO Q8H RF: 0 ranolazine [Ranexa] 500 mg tablet extended release 12 hr 500 mg PO BID Qty: 180 RF: 3 omeprazole 20 mg capsule,delayed release(DR/EC) 20 mg PO BID RF: 0 furosemide [Lasix] 40 mg tablet 40 mg PO QAM RF: 0 fluticasone furoate 50 mcg/actuation blister with device See Rx Instructions INHALATION DAILY RF: 0 multivitamin [Daily Multi-Vitamin] Tablet 1 tab PO QAM RF: 0 ascorbate calcium (vitamin C) 500 mg tablet 500 mg PO DAILY RF: 0 magnesium 250 mg tablet 250 mg PO DAILY RF: 0 omega 3-yqw-ndj-fish oil 500-100 mg capsule See Rx Instructions PO DAILY RF: 0 cholecalciferol (vitamin D3) 50 mcg (2,000 unit) tablet 1,000 unit PO DAILY RF: 0 aspirin [Adult Aspirin Regimen] 81 mg tablet,delayed release (DR/EC) 81 mg PO DAILY RF: 0 baclofen 10 mg tablet 10 mg PO TID RF: 0 nitroglycerin 0.4 mg tablet, sublingual 0.4 mg sublingual Q5M PRN (Reason: chest pain) Qty: 60 RF: 3 alprazolam [Xanax] 1 mg tablet 1 mg PO TID Qty: 90 RF: 5 tranylcypromine [Parnate] 10 mg tablet 30 mg PO BID Qty: 180 RF: 5 lovastatin 40 mg tablet 20 mg PO BEDTIME RF: 0 potassium chloride 20 mEq Tablet,Er Particles/Crystals 20 meq PO DAILY RF: 0 fluticasone propion-salmeterol [Wixela Inhub] 100-50 mcg/dose Blister With Device 1 puff INHALATION BID PRN (Reason: Shortness Of Breath) RF: 0 clopidogrel [Plavix] 75 mg tablet 75 mg PO DAILY Qty: 90 RF: 3 metoprolol tartrate 25 mg tablet 12.5 mg PO BID Qty: 0 RF: 0 Discharge Orders: Discharge Order (Routine); Ordered 11/04/21 Ordered By: Jaiden Feliciano Referrals: Jaiden Feliciano M.D [Physician] - 12/12/21 2:00 pm ([facility] will be calling to schedule a cardiology followup with Dr. Feliciano to be seen in 1 month. If you don't hear from them by Saturday. please give them a call. Thank you) Natalie Pearson FNP [Nurse Practitioner] - 11/14/21 10:45 am ([facility] will be calling to schedule a post Procedure followup with CALLY James to be seen in 7 to 10 days. If you don't hear from them by Saturday morning. please give them a call. Thank you) Discharge Diet: Cardiac Discharge Activity: Increase activity as tolerated Patient Instructions: Heart Catheterization (DC), Coronary Angioplasty (DC), Opioid Safety Activity Restrictions/Additional Instructions: Please do not lift more than 5 pounds of weight for the next 5 days Attestations Medical Necessity Statement*: Care not expected to cross 2 midnights. Time Spent in Patient Care*: less than 30 min Quality Metrics Clinical Quality Measures: During this hospital stay, did patient experience: None Coding Level of Care Code Acute Glost Tile Sorter for Lillian Yang
[2021-11-04 10:50] VITALS: BP 106/60; PULSE 60; RESP 17; TEMP 36.6; O2SAT 98
== END 2021-11-04 11:35 | disposition home or self-care (01) ==
LOC: CSU 15:03
PROVIDERS: Admitting Provider Internal Medicine; PCP Family Medicine; Visit Provider Internal Medicine
DX: I25.119 Atherosclerotic heart disease of native coronary artery with unspecified angina pectoris (principal); R94.39 Abnormal result of other cardiovascular function study; J44.9 Chronic obstructive pulmonary disease, unspecified; I10 Essential (primary) hypertension; E78.00 Pure hypercholesterolemia, unspecified; I25.2 Old myocardial infarction; Z79.01 Long term (current) use of anticoagulants; Z87.891 Personal history of nicotine dependence; Z79.82 Long term (current) use of aspirin
CPT/HCPCS: 36415; 85347; 85730; 92920; 92978; 93459; C1725; C1753; C1769; C1887; C1894; G0378; J1644; J2250; J3010; J3490; J7030; Q0163; Q9967

== ENCOUNTER 2021-11-09 09:59 | Outpatient (CLI) | payer MEDICARE, SELFPAY ==
--- NOTE | 2021-11-09 10:15 | USCV_ITS ---
Rebecca Coombs Age: 66 Gender: F : 1955 Exam Date: 11/09/2021 10:31 Ordering Phys: Jaiden Feliciano M.D ([email or web address]) Technologist: Exam Location[place] [facility] [place]ication: AAA HISTORY: Diameter (cm) AP x Transverse x Length Velocity (cm/s) Waveform Prox Aorta: 2.25 x 2.06 x 71.50 Biphasic Mid Aorta: 2.61 x 3.52 x 85.30 Biphasic Distal Aorta: 1.86 x 2.24 x 65.70 Biphasic Right Iliac Prox: 0.82 x 0.80 x 183.00 Triphasic Left Iliac Prox: 0.73 x 0.87 x 184.40 Triphasic Stent Prox Landing x x Aneurysmal Sac Max x x Lt Lat Sac Dim Rt Lat Sac Dim Stent Dist Landing x x Right Iliac Stent x x Left Iliac Stent x x Right Renal Art Left Renal Art FINDINGS: Mild to moderate diffuse plaques in the abdominal aorta Fusiform dilatation of the mid abdominal aorta CONCLUSIONS Small fusiform aneurysm of the mid abdominal aorta measuring 2.61 x 3.52 cm. Mild to moderate diffuse plaques in the abdominal aorta and iliac arteries. Normal proximal common iliac artery dimensions with no evidence of any significant stenosis or aneurysm Dr Olga Garza MD [facility] (Electronically Signed) Final Date: 15 November 2021 19:44 S
== END 2021-11-09 10:00 | disposition home or self-care (01) ==
LOC: RAD 10:01
PROVIDERS: PCP Family Medicine; Visit Provider Internal Medicine
DX: I71.4 Abdominal aortic aneurysm, without rupture (principal)
CPT/HCPCS: 76706

== ENCOUNTER → 2021-11-22 13:38 | Outpatient (BNVA) | payer MEDICARE, SELFPAY | PROVIDERS: PCP Family Medicine; Visit Provider Nurse Practitioner Family | DX: I25.119 Atherosclerotic heart disease of native coronary artery with unspecified angina pectoris (principal) | CPT/HCPCS: 80048 ==

== ENCOUNTER 2021-11-30 10:55 | Inpatient (IN) | payer MEDICARE, SELFPAY ==
[2021-11-30] VITALS (14 sets, daily range): BP systolic 91–108; BP diastolic 47–67; PULSE 79–108; RESP 20–36; TEMP 36.8–37.6; O2SAT 91–96; BMI 28.6
--- NOTE | 2021-11-30 10:55 | XR_ITS ---
WS: [id number] PA and lateral chest, 11/30/2021 Clinical Data: Short of breath Comparison: Portable chest, 01/11/2020. Findings: No nodules or masses are seen. There is a minimal patchy opacity in left lower lobe along w ith a small effusion. There is also patchy opacity in the right lung base. Midline sternotomy sutures are present. There is a right shoulder arthroplasty. XR/XR chest 2V* [id number] Impression: 1. Minimal patchy bilateral opacities more on the left than the right may repre sent pneumonia. 2. Atherosclerosis and small left effusion.
[2021-11-30 12:41] LABS: Hematocrit 33.7 % (37.0-47.0); Hemoglobin 11.2 g/dL (11.5-15.3); Mean Corpuscular HGB Conc 33.2 g/dL (30.0-36.0); Mean Corpuscular Hemoglobin 30.4 pg (28.0-34.0); Mean Corpuscular Volume 91.6 fl (81-99); Mean Platelet Volume 10.4 fL (7.4-10.4); Platelet Count 249 10^3/cmm (130-400); Red Blood Count 3.68 10^6/uL (4.1-5.3); White Blood Count 17.1 10^3/uL (4.0-10.0)
[2021-11-30 12:54] LABS: Alanine Aminotransferase 74 U/L (0-33); Albumin Level 3.4 g/dL (3.5-5.2); Alkaline Phosphatase 102 IU/L (35-105); Anion Gap 15.6 (5-19); Aspartate Amino Transferase 114 U/L (0-32); Blood Urea Nitrogen 22 mg/dL (8-23); Calcium 8.5 mg/dL (8.5-10.5); Carbon Dioxide 23 mmol/L (22-29); Chloride 101 mmol/L (98-107); Globulin 3.5 g/dL (1.3-4.6); Glomerular Filtration Rate 55.3 mL/min (90-130); Glucose 97 mg/dL (65-115); Osmolality Calculated 285 mOsm/kg (285-295); Potassium 3.6 mmol/L (3.5-5.1); Sodium 136 mmol/L (136-145); Total Bilirubin 0.4 mg/dL (0.15-1.2); Total Protein 6.9 g/dL (6.6-8.7)
[2021-11-30 13:13] LABS: Eosinophils 1 %; Lymphocytes 5 %; Platelet Estimate Normal (Normal); Segmented Neutrophils 82 %; Total Cells Counted 100 (0-100)
--- NOTE | 2021-11-30 13:18 | ECG_ITS ---
[facility] Test Date: 2021-11-30 Pat Name: Rebecca Coombs Department: Room: Gender: Female Healthcare Specialist: : 1955 Requested By: Callum Correa Order Number: [id number] Alicia MD: Jaiden Feliciano M.D. Measurements Intervals [place] Rate: 91 P: 75 [place]: 184 QRS: 71 QRSD: 96 T: 91 QT: 399 QTc: 492 Interpretive Statements SINUS RHYTHM NONSPECIFIC ST & T-WAVE ABNORMALITY Compared to ECG 01/08/2020 04:20:09 T-wave abnormality now present Sinus tachycardia no longer present Myocardial infarct finding no longer present Electronically Signed On 11-30-2021 21:59:42 SENIOR SAFETY SUPPORT MANAGER by Jaiden Feliciano M.D. [id number]
[2021-11-30 13:37] LABS: Lactate (Lactic Acid level) 0.9 mmol/L (0.5-2.2)
--- NOTE | 2021-11-30 13:39 | ED_ITS ---
HPI - SOB/Dyspnea General: Chief Complaint: Shortness of Breath/Dyspnea Stated Complaint: SOB Time Seen by Provider: 11/30/21 11:49 History of Present Illness: HPI Narrative: 66-year-old female presents emergency room complaining of shortness of breath last 3 days low-grade fever and increasing cough. She has not had any productive cough at home. She has noted some orthopnea. She denies any chest pain per se. She has known history of coronary artery disease also has a history of congestive heart failure and COPD. MD elicited complaint: shortness of breath and cough Pertinent past history: COPD and congestive heart failure Onset (ago): day(s) Timing: constant Severity: moderate Exacerbating factors: nothing Relieving factors: nothing Known history of: COPD and congestive heart failure Associated symptoms: Reports chest congestion and cough; Deny abdominal pain, chest pain, diaphoresis, dizziness, extremity pain, fever(s), hemoptysis, lightheadedness, myalgias, nausea, orthopnea, palpitations, paresthesias, polydipsia, polyuria, rash, sense of impending doom, syncope or vomiting Treatment prior to arrival: none Review of Systems Const: Denies: fever(s) or diaphoresis ENMT: Denies: throat pain, ear or mastoid pain, nasal discharge or nasal congestion Card: Denies: chest pain, palpitations, lightheadedness, syncope or orthopnea Resp: Reports: chest congestion; Denies: hemoptysis GI: Denies: abdominal pain, nausea or vomiting : Denies: flank pain, difficulty voiding, dysuria, urinary frequency or urinary urgency Musc: Denies: extremity pain Skin/Breast: Denies: rash or pruritus Neuro: Denies: dizziness Endo: Denies: polyuria or polydipsia PFS ED PFSH: Medical History CAD (coronary artery disease) COPD (chronic obstructive pulmonary disease) HTN (hypertension) Hypercholesterolemia Ischemic bowel disease Major depressive disorder, recurrent, in full remission Myocardial infarction Panic disorder Psychiatric care Tobacco abuse Warfarin anticoagulation Surgical History H/O cardiac catheterization H/O hysterectomy with oophorectomy H/O rotator cuff surgery History of right shoulder replacement Hx of appendectomy S/p bilateral carpal tunnel release S/P CABG x 4 S/P right hemicolectomy 01/01/2020 Status post colonoscopy Status post laparoscopic cholecystectomy 01/01/2020 Social History Quit status (tobacco): has quit using tobacco Second hand smoke exposure: No Smoking risk assessment/counseling performed?: No Reason smoking risk assessment not done: other Marital status: Current occupational status: retired Physical Exam Const: COMMON NORMALS: no acute distress GENERAL APPEARANCE: cooperative and comfortable ORIENTATION/CONSCIOUSNESS: Yes awake, Yes oriented to person, Yes oriented to place and Yes oriented to time HENMT: COMMON NORMALS: normocephalic, atraumatic and hearing grossly normal bilaterally HEAD & SCALP: normocephalic and atraumatic Neck/C-Spine: COMMON NORMALS: no JVD Resp: COMMON NORMALS: No use of accessory muscles EFFORT & INSPECTION: Yes labored AUSCULTATION: rhonchi and wheezes Cardio: COMMON NORMALS: no JVD, regular rate, regular rhythm and No murmurs present (Cardio) RATE: regular rate RHYTHM: regular rhythm GI: COMMON NORMALS: Soft to palpation and No hepatosplenomegaly present AUSCULTATION: Yes normoactive bowel sounds PALPATION: Yes Soft to palpation, No Tenderness to palpation present (GI), No Guarding due to palpation present (GI) and Yes No hepatosplenomegaly present Extremity: COMMON NORMALS: normal to inspection, capillary refill normal, no clubbing, cyanosis or edema, no calf tenderness and no pedal edema Neuro: SENSORIUM/ORIENTATION: Yes oriented to person, Yes oriented to place and Yes oriented to time Skin: COMMON NORMALS: no rashes or lesions noted GENERAL SKIN EXAM: no rashes or lesions noted Course Vital Signs: Vital signs: Vital Signs Temperature 99.6 F 11/30/21 12:40 Pulse Rate 98 11/30/21 15:44 Respiratory Rate 32 H 11/30/21 15:44 Blood Pressure 96/57 11/30/21 15:44 Pulse Oximetry 94 11/30/21 15:44 MDM - SOB/Dyspnea MDM Narrative: Medical decision making narrative: Labs imaging reviewed. EKGs reviewed. Patient's Covid was negative suspect she has pneumonia in addition to this she has some underlying CHF elevated troponin as well. We will admit echocardiogram to be done discussed with Dr. Dos Santos. Orders written. Lab Data: Labs: Lab Results 11/30/21 11/30/21 11/30/21 12:25 12:25 12:25 WBC 17.1 10^3/uL H 10 ^3/uL (4.0-10.0) RBC 3.68 10^6/uL L 10 ^6/uL (4.1-5.3) Hgb 11.2 g/dL L g/dL (11.5-15.3) Hct 33.7 % L % (37.0-47.0) MCV 91.6 fl fl (81-99) MCH 30.4 pg pg (28.0-34.0) MCHC 33.2 g/dL g/dL (30.0-36.0) RDW 13.0 % % (12.1-15.1) Plt Count 249 10^3/cmm 10^3 /cmm (130-400) MPV 10.4 fL fL (7.4-10.4) Lymph % (Auto) Not Reportable [place] % (Auto) Not Reportable Lymph # (Auto) Not Reportable [place] # (Auto) Not Reportable Total Counted 100 (0-100) Atypical Lymphs % 0.0 % % (0-5) Segmented Neutroph ils 82 % % Band Neutrophils 7.0 % % Lymphocytes (Manua l) 5 % % Monocytes (Manual) 5.0 % % Eosinophils (Manua l) 1 % % Basophils (Manual) 0.0 % % Platelet Estimate Normal (Normal) D-Dimer Sodium 136 mmol/L mmol/L (136-145) Potassium 3.6 mmol/L mmol/L (3.5-5.1) Chloride 101 mmol/L mmol/L (98-107) Carbon Dioxide 23 mmol/L mmol/L (22-29) Anion Gap 15.6 (5-19) BUN 22 mg/dL mg/dL (8-23) Creatinine 1.0 mg/dL H mg/dL (0.5-0.9) GFR Calculation 55.3 mL/min L mL/ min (90-130) Glucose 97 mg/dL mg/dL (65-115) Calculated Osmolal ity 285 mOsm/kg mOsm/ kg (285-295) Lactate Calcium 8.5 mg/dL mg/dL (8.5-10.5) Total Bilirubin 0.4 mg/dL mg/dL (0.15-1.2) AST 114 U/L H U/L (0-32) ALT 74 U/L H U/L (0-33) Alkaline Phosphata se 102 IU/L IU/L (35-105) Troponin T Baselin e Troponin T 120 Min [place] Delta Troponin T NT-Pro-B Natriuret Pep Total Protein 6.9 g/dL g/dL (6.6-8.7) Albumin 3.4 g/dL L g/dL (3.5-5.2) Globulin 3.5 g/dL g/dL (1.3-4.6) Procalcitonin Coronavirus 229E ( PCR) SARS-CoV-2 (PCR) 11/30/21 11/30/21 11/30/21 12:25 12:25 12:28 WBC RBC Hgb Hct MCV MCH MCHC RDW Plt Count MPV Lymph % (Auto) [place] % (Auto) Lymph # (Auto) [place] # (Auto) Total Counted Atypical Lymphs % Segmented Neutroph ils Band Neutrophils Lymphocytes (Manua l) Monocytes (Manual) Eosinophils (Manua l) Basophils (Manual) Platelet Estimate D-Dimer Sodium Potassium Chloride Carbon Dioxide Anion Gap BUN Creatinine GFR Calculation Glucose Calculated Osmolal ity Lactate Calcium Total Bilirubin AST ALT Alkaline Phosphata se Troponin T Baselin e 453 ng/L H* ng/L (0-10) Troponin T 120 Min [place] Delta Troponin T NT-Pro-B Natriuret Pep 3264 pg/mL H pg/m L (0-125) Total Protein Albumin Globulin Procalcitonin Coronavirus 229E ( PCR) Not detected (NOT DETECT) SARS-CoV-2 (PCR) Not detected (NOT DETECT) 11/30/21 11/30/21 11/30/21 13:10 14:14 14:14 WBC RBC Hgb Hct MCV MCH MCHC RDW Plt Count MPV Lymph % (Auto) [place] % (Auto) Lymph # (Auto) [place] # (Auto) Total Counted Atypical Lymphs % Segmented Neutroph ils Band Neutrophils Lymphocytes (Manua l) Monocytes (Manual) Eosinophils (Manua l) Basophils (Manual) Platelet Estimate D-Dimer 4.70 ug/mIFEU H u g/mIFEU (0-0.59) Sodium Potassium Chloride Carbon Dioxide Anion Gap BUN Creatinine GFR Calculation Glucose Calculated Osmolal ity Lactate 0.9 mmol/L mmol/L (0.5-2.2) Calcium Total Bilirubin AST ALT Alkaline Phosphata se Troponin T Baselin e Troponin T 120 Min [place] 454.1 ng/L H ng/L (0-10) Delta Troponin T 1.1 ABS# ABS# (0-10) NT-Pro-B Natriuret Pep Total Protein Albumin Globulin Procalcitonin Coronavirus 229E ( PCR) SARS-CoV-2 (PCR) 11/30/21 14:14 WBC RBC Hgb Hct MCV MCH MCHC RDW Plt Count MPV Lymph % (Auto) [place] % (Auto) Lymph # (Auto) [place] # (Auto) Total Counted Atypical Lymphs % Segmented Neutroph ils Band Neutrophils Lymphocytes (Manua l) Monocytes (Manual) Eosinophils (Manua l) Basophils (Manual) Platelet Estimate D-Dimer Sodium Potassium Chloride Carbon Dioxide Anion Gap BUN Creatinine GFR Calculation Glucose Calculated Osmolal ity Lactate Calcium Total Bilirubin AST ALT Alkaline Phosphata se Troponin T Baselin e Troponin T 120 Min [place] Delta Troponin T NT-Pro-B Natriuret Pep Total Protein Albumin Globulin Procalcitonin 34.81 ng/mL H ng/ mL (0-0.5) Coronavirus 229E ( PCR) SARS-CoV-2 (PCR) Discharge Plan Discharge Patient Disposition: Admitted As Inpatient Admit Provider: Mirlande Dos Santos Clinical Impression: Congestive heart failure, Community acquired pneumonia, Hypoxia, CAD (coronary artery disease), HTN (hypertension), COPD (chronic obstructive pulmonary disease) Condition: Stable Coding Level of Care Code ED Project Manager Retail for Chg Fwd Exam Comprehensive
[2021-11-30 13:45] LABS: Troponin(5th) Baseline 453 ng/L (0-10)
[2021-11-30 13:53] LABS: NT Pro B Type Natriuretic Pept 3264 pg/mL (0-125)
[2021-11-30 14:38] LABS: Adenovirus Not Detected (NOT DETECT); Chlamydia Pneumoniae Not Detected (NOT DETECT); Coronavirus 229E,HKU1,NL63,OC4 Not Detected (NOT DETECT); Human Metapneumovirus Not Detected (NOT DETECT); Human Rhinovirus/Enterovirus Not Detected (NOT DETECT); Influenza A Not Detected (NOT DETECT); Influenza A H1 Not Detected (NOT DETECT); Influenza A H1-2009 Not Detected (NOT DETECT); Influenza A H3 Not Detected (NOT DETECT); Influenza B Not Detected (NOT DETECT); Mycoplasma Pneumoniae Not Detected (NOT DETECT); Parainfluenza Virus Type 1 Not Detected (NOT DETECT); Parainfluenza Virus Type 2 Not Detected (NOT DETECT); Parainfluenza Virus Type 3 Not Detected (NOT DETECT); Parainfluenza Virus Type 4 Not Detected (NOT DETECT); Respiratory Syncytial Virus A Not Detected (NOT DETECT); Respiratory Syncytial Virus B Not Detected (NOT DETECT); SARS-COV-2 Not Detected (NOT DETECT)
[2021-11-30 14:41] LABS: Troponin 5 2HR Delta 1.1 ABS# (0-10)
[2021-11-30 14:53] LABS: Troponin 5 2HR 454.1 ng/L (0-10)
--- NOTE | 2021-11-30 15:02 | USCV_ITS ---
Rebecca Coombs Age: 66 Gender: F : 1955 Exam Date: 11/30/2021 16:09 Ordering Phys: Callum Toledo DO Technologist: KYRIE Exam Location: [facility] – [place] Indication: CHF BP: 96 / 57 HR: 89 Rhythm: Sinus Technical Quality: Technically difficult study MEASUREMENTS (Male / Female) Normal Values 2D ECHO LV Diastolic Diameter PLAX 4.7 cm 4.2 - 5.9 / 3.9 - 5.3 cm LV Systolic Diameter PLAX 3.6 cm IVS Diastolic Thickness 1.1 cm 0.6 - 1.0 / 0.6 - 0.9 cm IVS Systolic Thickness 1.4 cm LVPW Diastolic Thickness 1.1 cm 0.6 - 1.0 / 0.6 - 0.9 cm LVPW Systolic Thickness 1.3 cm LVOT Diameter 2.0 cm LV Ejection Fraction 2D Teich 57.6 % LV Ejection Fraction MOD 2C 63.7 % LV Ejection Fraction 2C AL 63.9 % LA Diameter 3.1 cm LA Width 4.1 cm LA Height 4.6 cm RA Width 2.8 cm RA Height 3.5 cm Aorta at Sinotubular Diameter 3.0 cm M-MODE Aortic Annulus Diameter 4.3 cm LA Ao Ratio MM 0.6 MV E Point Septal Separation 0.4 cm DOPPLER AV Peak Velocity 127.0 cm/s LVOT Peak Velocity 114.0 cm/s AV Area Cont Eq vti 2.4 cm squared AV Area Cont Eq pk 3.0 cm squared MV Area PHT 4.9 cm squared Mitral E to A Ratio 0.7 MV E' Velocity 43.5 cm/s Mitral E to MV E' Ratio 6.6 Mitral E to LV E' Lateral Ratio 5.6 Mitral E to LV E' Septal Ratio 8.2 TR Peak Velocity 340.7 cm/s TR Peak Gradient 46.4 mmHg Right Atrial Pressure 3.0 mmHg Pulmonary Artery Systolic Pressu 49.4 mmHg PV Peak Velocity 106.0 cm/s RV Acceleration Time 0.1 s RV Ejection Time 0.3 s RV AcT/ET 0.5 FINDINGS Left Ventricle Normal left ventricular size. LV systolic function is normal with EF of 55-60%. No regional wall motion abnormalities. Grade 1 diastolic dysfunction Right Ventricle The right ventricle is normal in size and function. Right Atrium The right atrium is normal in size. Left Atrium The left atrium is normal in size. Mitral Valve Grossly normal without significant stenosis or prolapse. There is no mitral regurgitation. Aortic Valve Grossly normal without significant stenosis. There is no aortic regurgitation. Tricuspid Valve Not well visualized. No significant stenosis . Mild tricuspid regurgitation. Insufficient TR jet to calculate RVSP Pulmonic Valve Not visualized Pericardium Normal pericardium without effusion. Aorta Normal ascending aorta dimension. CONCLUSIONS Technically limited quality echocardiogram because of poor ultrasonic windows LV systolic function is normal with EF of 55-60% Grade 1 disatolic dysfunction No significant valvular heart disease Compared to prior echocardiogram from 01/04/2020, no significant changes are noted Jaiden Feliciano MD (Electronically Signed) Final Date: 30 November 2021 18:03 S
--- NOTE | 2021-11-30 15:03 | CTR_ITS ---
PROCEDURE INFORMATION: Exam: CTA Chest With Contrast Exam date and time: 11/30/2021 3:03 PM Age: 66 years old Clinical indication: Abnormal findings; Abnormal diagnostic tests; Elevated d-dimer; Shortness of breath; Prior surgery; Surgery type: Open heart; Additional info: Elevated d dimer TECHNIQUE: Imaging protocol: Computed tomographic angiography of the chest with contrast. 3D rendering (Not supervised by radiologist): MIP and/or 3D reconstructed images were created by the technologist. Radiation optimization: All CT scans at this facility use at least one of these dose optimization techniques: automated exposure control; mA and/or kV adjustment per patient size (includes targeted exams where dose is matched to clinical indication); or iterative reconstruction. Contrast material: VISI 320; Contrast volume: 75 ml; Contrast route: INTRAVENOUS (IV); COMPARISON: CT chest abd pel wo con 01/07/2020 11:49 PM RADIATION DOSE METRICS: Total DLP (mGy-cm): 566.39 FINDINGS: Pulmonary arteries: Normal. No pulmonary emboli. Aorta: Unremarkable. No aortic aneurysm. No aortic dissection. Lungs: There is consolidation in the left lower lobe of the lung with air bronchograms. There is nodular opacification in the left upper lobe measuring 2 x 1.5 cm on series 2, image 159 and 1 cm nodule in the lingula on image 264. There is lung emphysema. Pleural spaces: Unremarkable. No pneumothorax. No pleural effusion. Heart: See Lymph nodes finding. Lymph nodes: There is AP window mediastinal adenopathy with a short-axis diameter of 1.5 cm. Bones/joints: Degenerative change is identified in the spine. There is no evidence for acute fracture or malalignment. Soft tissues: Unremarkable. CT/CT angio chest PE protcl [id number] IMPRESSION: There is no evidence for a pulmonary artery embolus. There is consolidation in the left lower lobe of the lung suggestive of pneumonia. This has worsened when compared with 01/07/2020. There also nodules in the left upper lobe and lingula which are new when compared with 01/07/2020.For patients at low risk (minimal or absent history of smoking and of other known risk factors), recommend CT Chest at 3-6 months, then consider CT Chest at 18-24 months. For patients at high risk (history of smoking or of other known risk factors), recommend CT Chest at 3-6 months, then CT Chest at 18-24 months. (Reference: Omero) References: Omero Mayr, et al. Guidelines for Management of Incidental Pulmonary Nodules Detected on CT Images: From the Fleischner Society 2017. Radiology. 2017;284(1):228-243.
--- NOTE | 2021-11-30 15:04 | P.HP_ITS ---
Providers/Chief Complaint Primary Care Provider: Venancio Mota MD Chief Complaint: SOB History of Present Illness Rebecca Coombs is a 66 year old female with past medical history of coronary artery disease, tobacco abuse, bypass surgery, COPD, hypertension, dyslipidemia and a prior [place] who had underwent orbital arthrectomy and PCI of proximal to mid LAD a few months ago. She started having chest pains again later. Ranexa was added that helped with symptoms but stress test showed a large sized, reversible perfusion defect in the LAD territory. Dr. Feliciano performed coronary angiogram which showed patent stent but there was an area of pinching in the stent. IVUS was performed that showed an area of underexpansion at the site of calcification. High pressure balloon angioplasty was performed 11/03. Post angioplasty IVUS showed well expanded stent. Patient stayed in the hospital overnight. No compications were noted and he left the hospital in a stable condition. She is presented today with chief complaint of orthopnea PND and shortness of breath. Patient is stating that her symptoms started on Saturday, she was feeling weak and lethargic for quite some time, she is endorsing getting orthostatic with use of metoprolol, she has been experiencing chest congestion, nonproductive cough, orthopnea, PND however she has not noticed significant weight gain. She is compliant with her medications including Lasix. On Saturday she fell while getting up, she thinks this fall was due to orthostatic syncopal event, she remained on the floor for about 14 hours until her family checked on her, after her fall she was experiencing chest pain, her shortness of breath was not getting better, she noticed fever 101.3 as well no recent diarrhea, vomiting or dysuria. 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 all of her questions were answered to her satisfaction, Heparin drip to be started We'll follow up on CTA chest results Review of Systems Const: Reports: fever(s), chills and change in appetite Eyes: Denies: change in vision ENMT: Denies: throat pain Card: Reports: chest pain, dyspnea on exertion and orthopnea Resp: Reports: dyspnea GI: Denies: abdominal pain : Denies: flank pain Musc: Denies: neck pain Skin/Breast: Denies: rash Neuro: Denies: headache(s) Psych: Reports: anxiety Endo: Denies: polyuria Jovany/Lymph: Denies: easy bruising All/Imm: Denies: urticaria Medications/Allergies Home Medications Medication Instructions Recorded Confirmed Last Taken Type ascorbate calcium (vitamin C) 500 500 mg PO QAM tab 12/08/19 11/30/21 11/30/21 History mg tablet furosemide 40 mg tablet 40 mg PO QAM 12/08/19 11/30/21 11/29/21 History magnesium 250 mg tablet 250 mg PO QAM 12/08/19 11/30/21 11/30/21 History multivitamin 1 tab PO QAM 12/08/19 11/30/21 11/03/21 08:00 History omeprazole 20 mg capsule,delayed 20 mg PO BID 12/08/19 11/30/21 11/30/21 10:00 History release fluticasone propion-salmeterol 1 puff INHALATION BID 01/01/20 11/30/21 11/03/21 08:00 History [Wixela Inhub] aspirin 81 mg tablet,delayed 81 mg PO QAM 08/30/20 11/30/21 11/30/21 History release nitroglycerin 0.4 mg sublingual 0.4 mg SUBLINGUAL Q5M PRN #60 tab 11/09/20 11/30/21 Unknown Rx tablet baclofen 10 mg tablet 10 mg PO TID 04/05/21 11/30/21 11/30/21 10:00 History cholecalciferol (vitamin D3) 50 2,000 unit PO QAM tab 06/01/21 11/30/21 11/30/21 History mcg (2,000 unit) tablet alprazolam 1 mg tablet 1 mg PO TID #90 tab 07/17/21 11/30/21 11/30/21 Rx tranylcypromine 10 mg tablet 30 mg PO BID #180 tab 07/17/21 11/30/21 11/30/21 10:00 Rx metoprolol tartrate 12.5 mg PO BID #0 tab 07/20/21 11/30/21 11/29/21 Rx acetaminophen 650 mg 1,300 mg PO Q8H PRN 08/29/21 11/30/21 Unknown History tablet,extended release ranolazine 500 mg tablet,extended 500 mg PO BID #180 tab 08/29/21 11/30/21 11/30/21 10:00 Rx release,12 hr Plavix 75 mg PO QAM 11/30/21 11/30/21 11/30/21 10:00 History fluticasone propionate 2 spray INTRANASAL BEDTIME 11/30/21 11/30/21 11/29/21 History ipratropium bromide [Atrovent HFA] 2 puff INHALATION Q6H PRN 11/30/21 11/30/21 Unknown History ipratropium-albuterol 3 ml INHALATION TID PRN 11/30/21 11/30/21 Unknown History lovastatin 20 mg PO BEDTIME 11/30/21 11/30/21 11/29/21 History montelukast 10 mg PO QAM 11/30/21 11/30/21 11/30/21 History omega-3 fatty acids [Fish Oil] 1,000 mg PO DAILY@17 11/30/21 11/30/21 11/29/21 History potassium chloride 20 meq PO QAM 11/30/21 11/30/21 11/29/21 History Allergies Allergy/AdvReac Type Severity Reaction Status Date / Time epinephrine Allergy Unknown Unknown Verified 11/30/21 11:35 pregabalin [From Lyrica] Allergy Unknown Verified 11/30/21 11:35 codeine AdvReac Unknown Unknown Verified 11/30/21 11:35 gabapentin [From Neurontin] AdvReac Unknown Unknown Verified 11/30/21 11:35 methadone AdvReac Unknown Unknown Verified 11/30/21 11:35 oxycodone [From OxyContin] AdvReac Unknown Unknown Verified 11/30/21 11:35 Ezqpoyb-VZA-KfJ Reductase AdvReac Unknown Unknown Verified 11/30/21 11:35 Inhibitor [Zfudtmw-Bfj-Yst Reductase Inhibitor] tramadol AdvReac Unknown Unknown Verified 11/30/21 11:35 PFSH Acute PFSH: Medical History CAD (coronary artery disease) COPD (chronic obstructive pulmonary disease) HTN (hypertension) Hypercholesterolemia Ischemic bowel disease Major depressive disorder, recurrent, in full remission Myocardial infarction Panic disorder Psychiatric care Tobacco abuse Warfarin anticoagulation Surgical History H/O cardiac catheterization H/O hysterectomy with oophorectomy H/O rotator cuff surgery History of right shoulder replacement Hx of appendectomy S/p bilateral carpal tunnel release S/P CABG x 4 S/P right hemicolectomy 01/01/2020 Status post colonoscopy Status post laparoscopic cholecystectomy 01/01/2020 Social History Quit status (tobacco): has quit using tobacco Second hand smoke exposure: No Smoking risk assessment/counseling performed?: No Reason smoking risk assessment not done: other Marital status: Current occupational status: retired Vitals/I&O/Wt Last Vital Signs Temp 99.6 F 11/30/21 12:40 Pulse 99 11/30/21 12:40 Resp 36 H 11/30/21 12:40 BP 91/57 11/30/21 12:40 Pulse Ox 96 11/30/21 12:40 Weight last 48 hrs Weight 84.368 kg Physical Exam Narrative: EXAM NARRATIVE: Patient was laying in semi-Roberts position Requiring 1.5 L Daughter at the bedside Chest congestion Coarse rhonchi at the base of the lungs No acute respiratory distress No conversational dyspnea Abdomen soft Lower extremities trace edema Nonfocal neuro exam EOMI, PERRLA Data : 11/30/21 12:25 11/30/21 12:25 Micro: Microbiology 11/30/21 13:10 Blood Culture - Preliminary Blood SPECIMEN COLLECTED 11/30/21 13:07 Blood Culture - Preliminary Blood SPECIMEN COLLECTED A&P Assessment and plan (1) Acute exacerbation of CHF (congestive heart failure): Status: Acute (2) NSTEMI (non-ST elevated myocardial infarction): Status: Acute (3) Pneumonia: Status: Acute (4) Hypoxia: Status: Acute (5) S/P CABG x 4: Status: Acute (6) HTN (hypertension): Status: Acute (7) COPD (chronic obstructive pulmonary disease): Status: Acute Additional A&P Information NSTEMI Start heparin drip No active chest pain EKG without new infarctive changes First troponin >200 Follow-up with serial troponins Repeat echo in the morning Currently her blood pressure is 97/60 however clinically does not look severely fluid overloaded, does not appear to be in cardiogenic shock, rule out obstructive shock with pulmonary embolism with CTA chest Continue aspirin and Plavix Hold metoprolol and Lasix for now Admit to ICU, Levophed ordered if map below 65 Acute hypoxia without respiratory failure: Currently requiring 1.5 L, Secondary to CHF exacerbation, rule out PE History of hypertension: Hold antihypertensive regimen COPD exacerbation with acute hypoxia due to above-mentioned reasons Patient lives alone PT evaluation Orthostatic vitals Cardiac diet Dr. Feliciano notified Patient is full code Attestations Medical Necessity Statement*: ICU admission more than 2 midnights anticipated Time Spent in Patient Care: Greater than 35 minutes Coding Level of Care Code Acute Senior Quality Manager for Lillian Yang Diagnoses Acute exacerbation of CHF (congestive heart failure) I50.9 NSTEMI (non-ST elevated myocardial infarction) I21.4 Pneumonia J18.9 Hypoxia R09.02 S/P CABG x 4 Z95.1 HTN (hypertension) I10 COPD (chronic obstructive pulmonary disease) J44.9
--- NOTE | 2021-11-30 15:18 | ECG_ITS ---
[facility] Test Date: 2021-11-30 Pat Name: Rebecca Coombs Department: Room: ICU02 Gender: Female Junior Loan Processor: : 1955 Requested By: Callum Correa Order Number: [id number] Alicia MD: Jaiden Feliciano M.D. Measurements Intervals [place] Rate: 89 P: 76 MD: 179 QRS: 54 QRSD: 97 T: 94 QT: 287 QTc: 349 Interpretive Statements SINUS RHYTHM POSSIBLE LEFT ATRIAL ENLARGEMENT [-0.1mV P-WAVE IN V1/V2] Compared to ECG 11/30/2021 13:49:54 T-wave abnormality no longer present Electronically Signed On 11-30-2021 22:05:41 SUPERVISOR TELLERS by Jaiden Feliciano M.D. [id number]
[2021-11-30] MEDS: iodixanol 320 mg/mL 100mL Btl IV (15:38)
[2021-11-30 15:47] LABS: Procalcitonin 34.81 ng/mL (0-0.5)
[2021-11-30] MEDS: piperacillin-tazobactam 3.375 GM in sodium chloride 0.9% (plus) 50 ML IV ×2 (17:00→23:58)
[2021-11-30] MEDS: acetaminophen 500 mg Tablet PO (17:26)
[2021-11-30] MEDS: vancomycin 1,000 MG in sodium chloride 0.9% 250 ML 250 MG IV (17:29)
[2021-11-30] MEDS: heparin 5,000 unit/mL INJ 1 mL IV (17:51)
[2021-11-30] MEDS: heparin drip 25,000 UNIT/500 ML PREMIX 24 UNIT IV (17:54)
--- NOTE | 2021-11-30 18:13 | PC.NURSE ---
PT arrived at 1625 via ER staff, moved to ICU bed and connected to monitor. VSS. O2@2LNC in use, crackles noted to bases and rhonchi to upper lobes. Pt AAOX4, c/o pain to L lateral chest. Tylenol given per orders once processed. RAC 20g in place, IV abt given per orders. 20g PIV started in R wrist and heparin gtt started per orders. Pt able to answer all questions. Makes all needs known. Will monitor.
[2021-11-30 19:05] LABS: Troponin 5 6HR Delta -42.8 ng/L (0-12)
[2021-11-30 19:07] LABS: Troponin 5 6HR 410.2 ng/L (0-10)
--- NOTE | 2021-11-30 19:18 | ECG_ITS ---
[facility] Test Date: 2021-11-30 Pat Name: Rebecca Coombs Department: Room: ICU02 Gender: Female Regeneration Operator: : 1955 Requested By: Callum Correa Order Number: [id number] Alicia MD: Jaiden Feliciano M.D. Measurements Intervals [place] Rate: 83 P: 73 TN: 179 QRS: 67 QRSD: 105 T: 93 QT: 398 QTc: 470 Interpretive Statements SINUS RHYTHM NONSPECIFIC ST & T-WAVE ABNORMALITY Compared to ECG 11/30/2021 18:19:03 T-wave abnormality now present Electronically Signed On 11-30-2021 22:04:28 BAILING MACHINE OPERATOR by Jaiden Feliciano M.D. [id number]
[2021-11-30] MEDS: atorvastatin 40 mg Tablet 20 MG PO (20:13)
[2021-11-30] MEDS: baclofen 10 mg Tablet PO (20:15)
[2021-11-30] MEDS: pantoprazole DR 40 mg Tablet PO (20:55)
[2021-11-30] MEDS: hydrocortisone 100 mg/2 mL SDV IVP (20:55)
[2021-11-30] MEDS: acetaminophen 325 mg Tablet 1300 MG PO (23:57)
[2021-12-01] VITALS (39 sets, daily range): BP systolic 80–118; BP diastolic 44–77; PULSE 59–77; RESP 17–20; TEMP 36.8–37.1; O2SAT 93–98
[2021-12-01] MEDS: sodium chloride 0.9% (100 ml) 100 ML (01:06)
[2021-12-01 01:28] LABS: Partial Thromboplastin Time 63.4 SECONDS (23.9-36.7)
[2021-12-01] MEDS: montelukast sodium 10 mg Tablet PO (06:08)
[2021-12-01] MEDS: FUROsemide 40 mg Tablet PO (06:08)
[2021-12-01] MEDS: clopidogrel 75 mg Tablet PO (06:09)
[2021-12-01] MEDS: aspirin 81 mg EC Tablet PO (06:09)
[2021-12-01 06:52] LABS: Basophils # 0.1 10^3/uL (0.0-0.1); Basophils % 0.5 %; Eosinophils % 0.1 %; Hematocrit 30.2 % (37.0-47.0); Hemoglobin 9.7 g/dL (11.5-15.3); Lymphocytes # 0.9 10^3/uL (0.8-4.8); Lymphocytes % 6.1 %; Mean Corpuscular HGB Conc 32.1 g/dL (30.0-36.0); Mean Corpuscular Volume 93.5 fl (81-99); Mean Platelet Volume 10.6 fL (7.4-10.4); Monocytes # 0.8 10^3/uL (0.2-0.9); Monocytes % 5.3 %; Neutrophils % 87.7 %; Nucleated Red Blood Cells % 0 %; Platelet Count 209 10^3/cmm (130-400); Red Blood Count 3.23 10^6/uL (4.1-5.3); Red Cell Distribution Width 12.8 % (12.1-15.1); White Blood Count 15.3 10^3/uL (4.0-10.0)
[2021-12-01 06:59] LABS: Partial Thromboplastin Time 57.7 SECONDS (23.9-36.7)
[2021-12-01 07:12] LABS: Anion Gap 14.8 (5-19); Blood Urea Nitrogen 19 mg/dL (8-23); Calcium 8.2 mg/dL (8.5-10.5); Carbon Dioxide 24 mmol/L (22-29); Chloride 100 mmol/L (98-107); Glomerular Filtration Rate 62.5 mL/min (90-130); Glucose 116 mg/dL (65-115); Osmolality Calculated 283 mOsm/kg (285-295); Potassium 3.8 mmol/L (3.5-5.1); Sodium 135 mmol/L (136-145)
[2021-12-01 07:29] LABS: C Reactive Protein 396.9 mg/L (0.0-4.9)
--- NOTE | 2021-12-01 07:30 | PC.NURSE ---
Report received, assessment completed. AAOx4, makes all needs known. Crackles noted bilaterally, improved slightly from yesterday. O2@2LNC. VSS. Will monitor.
--- NOTE | 2021-12-01 07:34 | P.CONIM_ITS ---
Providers/Reason For Consult Consulting Physician/Specialty*: Jaiden Feliciano MD/Cardiology Reason for Consult*: Congestive heart failure Requesting Physician: Dr Dos Santos Attending Physician: Mirlande Dos Santos MD Primary Care Provider: Venancio Mota MD History of Present Illness History of Present Illness Rebecca Coombs is a 66 year old female with past medical history of coronary artery disease, tobacco abuse, coronary bypass surgery, COPD, hypertension and dyslipidemia who had undergone orbital arthrectomy and PCI of proximal to mid LAD few months ago. She started having chest pains again and Ranexa was added. Chest pains improved however Lexiscan showed a large sized anterior wall defect that was reversible. Repeat coronary angiogram and IVUS showed underexpanded stent. It was dilated with NC balloon at high pressure. Repeat IVUS showed well-expanded stent. According to patient on Saturday, she felt not well. Had fever. Next day she fell down to the ground and felt very weak. She says she could not get her mary alice rgy to stand up and was on the floor for several hours. Patient also started noticing of breath at the same time. On presentation to the hospital BNP was elevated. Troponins are high however have not trended up. CTA ruled out pulmonary embolism. She has left lower lobe pneumonia on CTA and procalcitonin is elevated. Echo showed normal LV systolic function and grade 1 diastolic dysfunction which is unchanged from before. Review of Systems Const: Reports: fever(s), chills and change in appetite Eyes: Denies: change in vision ENMT: Denies: throat pain Card: Reports: dyspnea on exertion and orthopnea; Denies: chest pain Resp: Reports: dyspnea GI: Denies: abdominal pain : Denies: flank pain Musc: Denies: neck pain Skin/Breast: Denies: rash Neuro: Denies: headache(s) Psych: Reports: anxiety Endo: Denies: polyuria Jovany/Lymph: Denies: easy bruising All/Imm: Denies: urticaria Meds/Allergies Home Medications and Allergies Home Medications Medication Instructions Recorded Confirmed Last Taken Type ascorbate calcium (vitamin C) 500 500 mg PO QAM tab 12/08/19 11/30/21 11/30/21 History mg tablet furosemide 40 mg tablet 40 mg PO QAM 12/08/19 11/30/21 11/29/21 History magnesium 250 mg tablet 250 mg PO QAM 12/08/19 11/30/21 11/30/21 History multivitamin 1 tab PO QAM 12/08/19 11/30/21 11/03/21 08:00 History omeprazole 20 mg capsule,delayed 20 mg PO BID 12/08/19 11/30/21 11/30/21 10:00 History release fluticasone propion-salmeterol 1 puff INHALATION BID 01/01/20 11/30/21 11/03/21 08:00 History [Wixela Inhub] aspirin 81 mg tablet,delayed 81 mg PO QAM 08/30/20 11/30/21 11/30/21 History release nitroglycerin 0.4 mg sublingual 0.4 mg SUBLINGUAL Q5M PRN #60 tab 11/09/20 11/30/21 Unknown Rx tablet baclofen 10 mg tablet 10 mg PO TID 04/05/21 11/30/21 11/30/21 10:00 History cholecalciferol (vitamin D3) 50 2,000 unit PO QAM tab 06/01/21 11/30/21 11/30/21 History mcg (2,000 unit) tablet alprazolam 1 mg tablet 1 mg PO TID #90 tab 07/17/21 11/30/21 11/30/21 Rx tranylcypromine 10 mg tablet 30 mg PO BID #180 tab 07/17/21 11/30/21 11/30/21 10:00 Rx metoprolol tartrate 12.5 mg PO BID #0 tab 07/20/21 11/30/21 11/29/21 Rx acetaminophen 650 mg 1,300 mg PO Q8H PRN 08/29/21 11/30/21 Unknown History tablet,extended release ranolazine 500 mg tablet,extended 500 mg PO BID #180 tab 08/29/21 11/30/21 11/30/21 10:00 Rx release,12 hr Plavix 75 mg PO QAM 11/30/21 11/30/21 11/30/21 10:00 History fluticasone propionate 2 spray INTRANASAL BEDTIME 11/30/21 11/30/21 11/29/21 History ipratropium bromide [Atrovent HFA] 2 puff INHALATION Q6H PRN 11/30/21 11/30/21 Unknown History ipratropium-albuterol 3 ml INHALATION TID PRN 11/30/21 11/30/21 Unknown History lovastatin 20 mg PO BEDTIME 11/30/21 11/30/21 11/29/21 History montelukast 10 mg PO QAM 11/30/21 11/30/21 11/30/21 History omega-3 fatty acids [Fish Oil] 1,000 mg PO DAILY@17 11/30/21 11/30/21 11/29/21 History potassium chloride 20 meq PO QAM 11/30/21 11/30/21 11/29/21 History Allergies Allergy/AdvReac Type Severity Reaction Status Date / Time epinephrine Allergy Unknown Unknown Verified 11/30/21 11:35 pregabalin [From Lyrica] Allergy Unknown Verified 11/30/21 11:35 codeine AdvReac Unknown Unknown Verified 11/30/21 11:35 gabapentin [From Neurontin] AdvReac Unknown Unknown Verified 11/30/21 11:35 methadone AdvReac Unknown Unknown Verified 11/30/21 11:35 oxycodone [From OxyContin] AdvReac Unknown Unknown Verified 11/30/21 11:35 Uqwliap-XEP-OzE Reductase AdvReac Unknown Unknown Verified 11/30/21 11:35 Inhibitor [Hrymwmn-Nmx-Ldv Reductase Inhibitor] tramadol AdvReac Unknown Unknown Verified 11/30/21 11:35 Current Medications Current Medications Generic Name Dose Route Start Last Admin Trade Name Freq PRN Reason Stop Dose Admin Acetaminophen 500 mg 11/30/21 16:50 11/30/21 17:26 Acetaminophen 500 Mg Tablet PO 500 mg Q4H PRN Administration fever Acetaminophen 1,300 mg 11/30/21 18:09 11/30/21 23:57 Acetaminophen 325 Mg Tablet PO 1,300 mg Q6H PRN Administration MILD PAIN Aspirin 81 mg 12/01/21 06:00 12/01/21 06:09 Aspirin 81 Mg Ec Tablet PO 81 mg QAM ANTONIETTA Administration Atorvastatin Calcium 20 mg 11/30/21 21:00 11/30/21 20:13 Atorvastatin 40 Mg Tablet PO 20 mg BEDTIME ANTONIETTA Administration Baclofen 10 mg 11/30/21 21:00 11/30/21 20:15 Baclofen 10 Mg Tablet PO 10 mg TID ANTONIETTA Administration Clopidogrel Bisulfate 75 mg 12/01/21 06:00 12/01/21 06:09 Clopidogrel 75 Mg Tablet PO 75 mg QAM ANTONIETTA Administration Furosemide 40 mg 12/01/21 06:00 12/01/21 06:08 Furosemide 40 Mg Tablet PO 40 mg QAM ANTONIETTA Administration Heparin Sodium (Porcine) 0 unit 11/30/21 16:50 11/30/21 17:51 Heparin 5,000 Unit/Ml Inj 1 Ml IV 4,300 unit PRN PRN Administration Heparin weight-base protocol Protocol Piperacillin Sod/Tazobactam 50 mls @ 12.5 mls/hr 11/30/21 16:50 12/01/21 04:02 Sod 3.375 gm/ Sodium Chloride IV Infused Q8H ANTONIETTA Infusion Protocol Heparin Sodium/Sodium Chloride 25,000 unit in 500 mls @ 0 mls/hr 11/30/21 16:5 0 11/30/21 17:54 Heparin Drip IV 14.22 unit/kg/hr .Q0M ANTONIETTA 24 mls/hr Administration Protocol Per Protocol Montelukast Sodium 10 mg 12/01/21 06:00 12/01/21 06:08 Montelukast Sodium 10 Mg Tablet PO 10 mg QAM ANTONIETTA Administration Non-Formulary 3 each 11/30/21 18:00 11/30/21 17:56 Medication PO 3 each Tranylcypromine 10 BID ANTONIETTA Administration Mg PFSH Acute PFSH: Medical History CAD (coronary artery disease) COPD (chronic obstructive pulmonary disease) HTN (hypertension) Hypercholesterolemia Ischemic bowel disease Major depressive disorder, recurrent, in full remission Myocardial infarction Panic disorder Psychiatric care Tobacco abuse Warfarin anticoagulation Surgical History H/O cardiac catheterization H/O hysterectomy with oophorectomy H/O rotator cuff surgery History of right shoulder replacement Hx of appendectomy S/p bilateral carpal tunnel release S/P CABG x 4 S/P right hemicolectomy 01/01/2020 Status post colonoscopy Status post laparoscopic cholecystectomy 01/01/2020 Social History Quit status (tobacco): has quit using tobacco Second hand smoke exposure: No Smoking risk assessment/counseling performed?: No Reason smoking risk assessment not done: other Marital status: Current occupational status: retired Vitals/I&O/Wt Last Vital Signs Temp 98.2 F 12/01/21 07:00 Pulse 71 12/01/21 07:00 Resp 32 H 11/30/21 15:44 BP 98/58 12/01/21 07:00 Pulse Ox 98 12/01/21 07:00 11/30/21 12/01/21 12/01/21 22:59 06:59 14:59 Intake Total 1140 / 1140 530 / 1670 Output Total 100 / 100 250 / 350 Balance 1040 / 1040 280 / 1320 Weight last 48 hrs Weight 188 lb 7 oz Weight 186 lb Physical Exam Narrative: EXAM NARRATIVE: GENERAL: Patient is alert, awake and oriented x3. [] NECK: No jugular vein distension. [] HEENT: No cyanosis. No icterus. No pallor. [] HEART: Regular S1 and S2. No murmur, rub or gallop. [] LUNGS: Clear to auscultate bilaterally. [] ABDOMEN: Soft, nontender and nondistended. Positive bowel sounds. No guarding, rebound or tenderness. [] CENTRAL NERVOUS SYSTEM: Grossly nonfocal. [] EXTREMITIES: Lower extremities with 1+ edema bilaterally. Pulses palpable in the lower extremities, both dorsalis pedis and posterior tibial. [] Data Micro: Micro: Microbiology 11/30/21 13:10 Blood Culture - Pr eliminary Blood SPECIMEN [facility] 11/30/21 13:07 Blood Culture - Pr eliminary Blood SPECIMEN [facility] A&P Assessment and plan (1) Congestive heart failure: Status: Acute (2) HTN (hypertension): Status: Acute (3) COPD (chronic obstructive pulmonary disease): Status: Acute (4) Pneumonia: Status: Acute (5) Coronary artery disease: Status: Acute Patient has presented with a left lower lobe pneumonia. Procalcitonin is elevated. WBC count was high. Clinically patient is not volume overloaded. Gentle p.o. diuresis. Antibiotics per medicine team. Continue aspirin and Plavix. Echocardiogram does not show any wall motion abnormality. Troponin elevation is secondary to demand ischemia vs mild myocarditis Hold antihypertensive medications for now given her significant hypotension Thank you for involving us with care of this patient. We will continue to follow. Please call with questions. Coding Level of Care Code Acute Diffusion Operator for Chg Fwd Diagnoses Congestive heart failure I50.9 HTN (hypertension) I10 COPD (chronic obstructive pulmonary disease) J44.9 Pneumonia J18.9 Coronary artery disease I25.10
[2021-12-01] MEDS: sennosides-docusate Tablet 1 TAB PO (08:29)
[2021-12-01] MEDS: pantoprazole DR 40 mg Tablet PO ×2 (08:29→17:09)
[2021-12-01] MEDS: ALPRAZolam 0.5 mg Tablet 1 MG PO ×3 (08:29→20:58)
[2021-12-01] MEDS: piperacillin-tazobactam 3.375 GM in sodium chloride 0.9% (plus) 50 ML IV ×2 (08:29→15:48)
[2021-12-01] MEDS: baclofen 10 mg Tablet PO ×3 (08:29→20:58)
[2021-12-01] MEDS: enoxaparin 80 mg/0.8 mL Syringe SUBCUT ×2 (10:13→23:14)
--- NOTE | 2021-12-01 10:36 | PM.PN ---
Subjective Subjective: Interval history: No overnight events Leukocytosis trending down, afebrile Currently doing well on 2 L nasal cannula Patient is not endorsing shortness of breath Cardiology input appreciated No active chest pain Blood pressure still around 90s, 98/58mmhg Plan switch to Lovenox therapeutic regimen No signs of PE, dense left-sided pneumonia Vitals/I&O/Wt Last Vital Signs Temp 98.2 F 12/01/21 07:00 Pulse 71 12/01/21 07:00 Resp 32 H 11/30/21 15:44 BP 98/58 12/01/21 07:00 Pulse Ox 98 12/01/21 07:00 11/30/21 12/01/21 12/01/21 22:59 06:59 14:59 Intake Total 1140 / 1140 530 / 1670 472 / 472 Output Total 100 / 100 250 / 350 500 / 500 Balance 1040 / 1040 280 / 1320 -28 / -28 Weight last 48 hrs Weight 85.474 kg Weight 84.368 kg Physical Exam Narrative: EXAM NARRATIVE: Patient resting comfortably in her bed 2 L nasal cannula No acute respite distress Mild rhonchi with crackles at the base of the lungs No acute respiratory distress Abdomen soft No signs of edema clinically Clinically does not look fluid overloaded Fatigued and lethargic EOMI, PERRLA Data : 12/01/21 06:34 12/01/21 06:34 Micro: Microbiology 11/30/21 23:07 Legionella Urinary Antigen - Final Urine,Voided Bacterial Antigens - Final 11/30/21 13:10 Blood Culture - Preliminary Blood SPECIMEN COLLECTED 11/30/21 13:07 Blood Culture - Preliminary Blood SPECIMEN COLLECTED A&P Assessment and plan (1) Pneumonia: Status: Acute (2) Congestive heart failure: Status: Acute (3) Community acquired pneumonia: Status: Acute (4) Hypoxia: Status: Acute (5) NSTEMI (non-ST elevated myocardial infarction): Status: Acute (6) Acute exacerbation of CHF (congestive heart failure): Status: Acute (7) Coronary artery disease: Status: Acute Additional A&P Information Left-sided pneumonia Currently on 2 L nasal cannula Cultures are negative to date Leukocytosis 20 Covid PCR negative Acute CHF exacerbation Physical ejection fraction heart failure Clinically does not look fluid overloaded BNP 3200 No signs of PE Bilateral basilar mild effusion Reluctant to add low-dose Lasix for now her systolic blood pressure is 98 mmHg today She does seem to show signs of left-sided heart failure, no signs of right heart failure No active chest pain No signs of active infarct on EKG Cardiology input appreciated We will cover 48 hours on anticoagulating agent, switch to Lovenox Continue aspirin and Plavix Troponin leak likely related to severe pneumonia demand ischemia: Type II NM Fatigued and lethargic we will get PT evaluation, patient wants to go to [facility] if needs rehab Out of ICU once blood pressure slightly better Full code Cardiac diet DVT prophylaxis: On board Attestations Medical Necessity Statement*: Can be transferred out of ICU once blood pressure slightly better Time Spent in Patient Care: 16 - 35 minutes Coding Level of Care Code Acute Gaming Investigator for Lillian Yang Diagnoses Pneumonia J18.9 Congestive heart failure I50.9 Community acquired pneumonia J18.9 Hypoxia R09.02 NSTEMI (non-ST elevated myocardial infarction) I21.4 Acute exacerbation of CHF (congestive heart failure) I50.9 Coronary artery disease I25.10
[2021-12-01] MEDS: vancomycin 1,000 MG in sodium chloride 0.9% 250 ML 250 MG IV (10:44)
[2021-12-01] MEDS: midodrine 5 mg TABLET 10 MG PO ×3 (10:54→20:58)
[2021-12-01] MEDS: sodium chloride 0.9% 250 ML IV (10:55)
[2021-12-01] MEDS: acetaminophen 325 mg Tablet 1300 MG PO (15:44)
--- NOTE | 2021-12-01 18:14 | PC.NURSE ---
Shift Note Frequent safety and comfort rounds continue. Orders and/or nursing care completed as indicated. Patient monitored for response to intervention and treatment(s). Education provided includes treatment plan, medications and dc plan. Pt and family verbalizes understanding. VSS. Pt has orders to tx to [facility]. AAOx4, makes all needs known. Will continue to monitor.
[2021-12-01] MEDS: atorvastatin 40 mg Tablet 20 MG PO (20:58)
[2021-12-01] MEDS: ipratropium-albuterol 3 mL Neb INHALATION (23:54)
[2021-12-02] VITALS (16 sets, daily range): BP systolic 91–107; BP diastolic 52–67; PULSE 58–79; RESP 16–20; TEMP 36.5–37.3; O2SAT 90–96
[2021-12-02] MEDS: acetaminophen 325 mg Tablet 1300 MG PO (00:15)
[2021-12-02] MEDS: piperacillin-tazobactam 3.375 GM in sodium chloride 0.9% (plus) 50 ML IV ×2 (00:18→07:45)
--- NOTE | 2021-12-02 01:50 | PC.NURSE ---
Report called to Jamee. Patient and belongings taken to [id number]. All questions answered, no further questions. Patient AAOx4.
[2021-12-02] MEDS: vancomycin 1,000 MG in sodium chloride 0.9% 250 ML 250 MG IV (05:38)
[2021-12-02] MEDS: aspirin 81 mg EC Tablet PO (05:38)
[2021-12-02] MEDS: clopidogrel 75 mg Tablet PO (05:38)
[2021-12-02] MEDS: montelukast sodium 10 mg Tablet PO (05:38)
[2021-12-02 06:08] LABS: Basophils # 0.1 10^3/uL (0.0-0.1); Basophils % 0.9 %; Eosinophils # 0.4 10^3/uL (0.0-0.8); Eosinophils % 4.6 %; Hematocrit 30.5 % (37.0-47.0); Hemoglobin 9.9 g/dL (11.5-15.3); Lymphocytes # 1.7 10^3/uL (0.8-4.8); Lymphocytes % 22.5 %; Mean Corpuscular HGB Conc 32.5 g/dL (30.0-36.0); Mean Corpuscular Hemoglobin 30.2 pg (28.0-34.0); Mean Platelet Volume 10.7 fL (7.4-10.4); Monocytes # 0.8 10^3/uL (0.2-0.9); Monocytes % 10.2 %; Neutrophils # 4.72 10^3/uL (1.8-7.7); Neutrophils % 61.5 %; Nucleated Red Blood Cells % 0 %; Platelet Count 259 10^3/cmm (130-400); Red Blood Count 3.28 10^6/uL (4.1-5.3); White Blood Count 7.7 10^3/uL (4.0-10.0)
[2021-12-02 06:32] LABS: Alanine Aminotransferase 51 U/L (0-33); Albumin Level 2.8 g/dL (3.5-5.2); Alkaline Phosphatase 86 IU/L (35-105); Anion Gap 17.3 (5-19); Aspartate Amino Transferase 43 U/L (0-32); Blood Urea Nitrogen 18 mg/dL (8-23); Calcium 8.2 mg/dL (8.5-10.5); Carbon Dioxide 21 mmol/L (22-29); Chloride 101 mmol/L (98-107); Globulin 3.3 g/dL (1.3-4.6); Glomerular Filtration Rate 62.5 mL/min (90-130); Glucose 84 mg/dL (65-115); Osmolality Calculated 283 mOsm/kg (285-295); Potassium 3.3 mmol/L (3.5-5.1); Sodium 136 mmol/L (136-145); Total Bilirubin 0.2 mg/dL (0.15-1.2); Total Protein 6.1 g/dL (6.6-8.7)
[2021-12-02] MEDS: ipratropium-albuterol 3 mL Neb INHALATION ×5 (07:53→19:34)
[2021-12-02] MEDS: pantoprazole DR 40 mg Tablet PO ×2 (07:58→17:42)
[2021-12-02] MEDS: baclofen 10 mg Tablet PO ×3 (07:59→20:07)
[2021-12-02] MEDS: sennosides-docusate Tablet 1 TAB PO (07:59)
[2021-12-02] MEDS: ALPRAZolam 0.5 mg Tablet 1 MG PO ×3 (07:59→20:07)
[2021-12-02] MEDS: midodrine 5 mg TABLET 10 MG PO ×3 (07:59→20:07)
[2021-12-02] MEDS: enoxaparin 40 mg/0.4 mL Syringe SUBCUT (08:05)
[2021-12-02] MEDS: potassium chloride ER 20 mEq Tablet 40 MEQ PO (08:06)
[2021-12-02] MEDS: sodium chloride 0.9% 500 ML 999 ML IV (08:07)
[2021-12-02 08:39] LABS: Magnesium 1.8 mg/dL (1.7-2.3)
--- NOTE | 2021-12-02 12:01 | PM.PN ---
Subjective Subjective: Interval history: Stop for use positive sputum culture De-escalate antibiotics to Bactrim Afebrile, leukocytosis improving We will give her a bolus of fluid Potassium repleted Vitals/I&O/Wt Last Vital Signs Temp 97.7 F 12/02/21 08:01 Pulse 65 12/02/21 11:47 Resp 18 12/02/21 11:47 BP 107/67 12/02/21 08:01 Pulse Ox 93 12/02/21 11:47 12/01/21 12/02/21 12/02/21 22:59 06:59 14:59 Intake Total 770 / 2152 480 / 2632 1226.875 / 1226.875 Output Total 250 / 950 Balance 520 / 1202 480 / 1682 1226.875 / 1226.875 Weight last 48 hrs Weight 85.474 kg Physical Exam Narrative: EXAM NARRATIVE: Patient doing well Current patient is doing well Currently on 2 L nasal cannula S1, S2 No audible stridor or wheezing Productive sputum Soft abdomen No signs of edema Awake and alert Nonfocal neuro exam Data : 12/02/21 05:58 12/02/21 05:58 Micro: Microbiology 11/30/21 21:15 Gram Stain - Final Sputum - Expectorated Sputum Sputum Culture - Preliminary Staphylococcus aureus 12/02/21 06:50 Gram Stain - Final Sputum - Expectorated Sputum 11/30/21 13:10 Blood Culture - Preliminary Blood NEGATIVE TO DATE 11/30/21 13:07 Blood Culture - Preliminary Blood NEGATIVE TO DATE 11/30/21 21:15 MRSA Culture - Final Nose 11/30/21 23:07 Legionella Urinary Antigen - Final Urine,Voided Bacterial Antigens - Final A&P Assessment and plan (1) Pneumonia: Status: Acute (2) Congestive heart failure: Status: Acute (3) Community acquired pneumonia: Status: Acute (4) Hypoxia: Status: Acute (5) NSTEMI (non-ST elevated myocardial infarction): Status: Acute Additional A&P Information Staph aureus related community-acquired pneumonia abx Deescalated to Bactrim, leukocytosis improved, she is afebrile Might go to [facility] over the weekend Clinically doing well Hypotension related to dehydration, she clinically looks dehydrated, does show adequate response to IV fluids Lasix not given during this hospitalization however BNP is high Echo unremarkable Finished 48 hours on anticoagulating therapeutic regimen no chest pain, no wall motion abnormality Appreciate cardiology consultation Cardiac diet DVT prophylaxis Lovenox Full code Awaiting placement to [facility] Attestations Medical Necessity Statement*: Awaiting placement Time Spent in Patient Care: less than 15 minutes Coding Level of Care Code Acute Assistant Finance Manager for [employer] Fwd Diagnoses Pneumonia J18.9 Congestive heart failure I50.9 Community acquired pneumonia J18.9 Hypoxia R09.02 NSTEMI (non-ST elevated myocardial infarction) I21.4
[2021-12-02] MEDS: acetaminophen 500 mg Tablet PO (15:58)
[2021-12-02] MEDS: sulfamethoxazole-trimeth DS 160-800 mg Tablet 1 TAB PO (17:42)
[2021-12-02] MEDS: atorvastatin 40 mg Tablet 20 MG PO (20:07)
[2021-12-03] VITALS (17 sets, daily range): BP systolic 88–130; BP diastolic 53–76; PULSE 68–87; RESP 14–18; TEMP 36.6–37; O2SAT 90–96
[2021-12-03] MEDS: ipratropium-albuterol 3 mL Neb INHALATION ×7 (00:02→23:55)
[2021-12-03] MEDS: acetaminophen 325 mg Tablet 1300 MG PO ×2 (00:15→09:13)
[2021-12-03] MEDS: aspirin 81 mg EC Tablet PO (05:38)
[2021-12-03] MEDS: clopidogrel 75 mg Tablet PO (05:38)
[2021-12-03] MEDS: montelukast sodium 10 mg Tablet PO (05:38)
[2021-12-03 06:26] LABS: Basophils # 0.1 10^3/uL (0.0-0.1); Basophils % 0.8 %; Eosinophils # 0.4 10^3/uL (0.0-0.8); Eosinophils % 6.1 %; Hematocrit 29.8 % (37.0-47.0); Hemoglobin 9.6 g/dL (11.5-15.3); Lymphocytes # 1.9 10^3/uL (0.8-4.8); Lymphocytes % 31.7 %; Mean Corpuscular HGB Conc 32.2 g/dL (30.0-36.0); Mean Corpuscular Hemoglobin 29.8 pg (28.0-34.0); Mean Corpuscular Volume 92.5 fl (81-99); Mean Platelet Volume 10.6 fL (7.4-10.4); Monocytes # 0.9 10^3/uL (0.2-0.9); Monocytes % 15.4 %; Neutrophils # 2.66 10^3/uL (1.8-7.7); Neutrophils % 45.3 %; Nucleated Red Blood Cells % 0 %; Platelet Count 296 10^3/cmm (130-400); Red Blood Count 3.22 10^6/uL (4.1-5.3); Red Cell Distribution Width 13.2 % (12.1-15.1); White Blood Count 5.9 10^3/uL (4.0-10.0)
[2021-12-03 06:53] LABS: Anion Gap 15.4 (5-19); Blood Urea Nitrogen 13 mg/dL (8-23); Calcium 8.4 mg/dL (8.5-10.5); Carbon Dioxide 21 mmol/L (22-29); Chloride 109 mmol/L (98-107); Glomerular Filtration Rate 83.5 mL/min (90-130); Glucose 85 mg/dL (65-115); Osmolality Calculated 293 mOsm/kg (285-295); Potassium 3.4 mmol/L (3.5-5.1); Sodium 142 mmol/L (136-145)
[2021-12-03] MEDS: ALPRAZolam 0.5 mg Tablet 1 MG PO ×3 (09:09→20:06)
[2021-12-03] MEDS: baclofen 10 mg Tablet PO ×3 (09:09→20:05)
[2021-12-03] MEDS: enoxaparin 40 mg/0.4 mL Syringe SUBCUT (09:09)
[2021-12-03] MEDS: midodrine 5 mg TABLET 10 MG PO ×3 (09:10→20:06)
[2021-12-03] MEDS: sulfamethoxazole-trimeth DS 160-800 mg Tablet 1 TAB PO ×2 (09:10→17:02)
[2021-12-03] MEDS: sennosides-docusate Tablet 1 TAB PO (09:10)
[2021-12-03] MEDS: pantoprazole DR 40 mg Tablet PO ×2 (09:10→17:02)
--- NOTE | 2021-12-03 12:06 | PC.SOCIAL ---
IMM Update Pg. 2 of IMM updated and reviewed with patient who verbalized understanding. Copy provided.
--- NOTE | 2021-12-03 15:17 | P.PN_ITS ---
Subjective Subjective: Interval history: No events overnight she is doing well on 2 L NC Awaiting placement Vitals/I&O/Wt Last Vital Signs Temp 98.1 F 12/03/21 08:00 Pulse 82 12/03/21 15:10 Resp 18 12/03/21 15:10 BP 95/60 12/03/21 08:00 Pulse Ox 90 12/03/21 15:10 12/03/21 12/03/21 12/03/21 06:59 14:59 22:59 Intake Total 120 / 2146.875 370 / 370 Balance 120 / 2146.875 370 / 370 Physical Exam 2 Narrative: EXAM NARRATIVE: EOMIPERRLA NON focal neuro exam sitting w/o discomfort s1,s2 euvolemic abd soft No audible stridor or wheezing Data : 12/03/21 06:00 12/03/21 06:00 Micro: Microbiology 12/02/21 06:50 Gram Stain - Final Sputum - Expectorated Sputum Sputum Culture - Preliminary Gram Negative Rods 11/30/21 21:15 Gram Stain - Final Sputum - Expectorated Sputum Sputum Culture - Final Staphylococcus aureus A&P Assessment and plan (1) Pneumonia: Status: Acute (2) Community acquired pneumonia: Status: Acute (3) Hypoxia: Status: Acute (4) NSTEMI (non-ST elevated myocardial infarction): Status: Acute Additional A&P Information Stapu aureus CAP Acute hypoxia Doing well on bactrim need home o2 eval Awaiting placement TYpe 2 IL Full code Card diet Attestations Medical Necessity Statement*: Awaiting placement Time Spent in Patient Care: less than 15 minutes Coding Level of Care Code Acute Electronics Recycler for [facility] Fwd Diagnoses Pneumonia J18.9 Community acquired pneumonia J18.9 Hypoxia R09.02 NSTEMI (non-ST elevated myocardial infarction) I21.4
[2021-12-03] MEDS: atorvastatin 40 mg Tablet 20 MG PO (20:05)
[2021-12-03] MEDS: acetaminophen 500 mg Tablet PO (20:24)
[2021-12-04] VITALS (10 sets, daily range): BP systolic 90–107; BP diastolic 43–65; PULSE 64–92; RESP 16–18; TEMP 36.4–36.9; O2SAT 88–95
[2021-12-04] MEDS: aspirin 81 mg EC Tablet PO (06:19)
[2021-12-04] MEDS: montelukast sodium 10 mg Tablet PO (06:19)
[2021-12-04] MEDS: clopidogrel 75 mg Tablet PO (06:19)
[2021-12-04 06:26] LABS: Basophils # 0.1 10^3/uL (0.0-0.1); Basophils % 0.8 %; Eosinophils # 0.4 10^3/uL (0.0-0.8); Eosinophils % 4.9 %; Hematocrit 28.7 % (37.0-47.0); Hemoglobin 9.2 g/dL (11.5-15.3); Lymphocytes # 1.9 10^3/uL (0.8-4.8); Lymphocytes % 26.7 %; Mean Corpuscular HGB Conc 32.1 g/dL (30.0-36.0); Mean Corpuscular Hemoglobin 29.9 pg (28.0-34.0); Mean Corpuscular Volume 93.2 fl (81-99); Mean Platelet Volume 10.2 fL (7.4-10.4); Monocytes % 14.3 %; Neutrophils # 3.77 10^3/uL (1.8-7.7); Neutrophils % 52.5 %; Nucleated Red Blood Cells % 0 %; Platelet Count 342 10^3/cmm (130-400); Red Blood Count 3.08 10^6/uL (4.1-5.3); Red Cell Distribution Width 13.6 % (12.1-15.1); White Blood Count 7.2 10^3/uL (4.0-10.0)
[2021-12-04 06:44] LABS: Anion Gap 14.3 (5-19); Blood Urea Nitrogen 11 mg/dL (8-23); Calcium 8.5 mg/dL (8.5-10.5); Carbon Dioxide 21 mmol/L (22-29); Chloride 110 mmol/L (98-107); Glomerular Filtration Rate 83.5 mL/min (90-130); Glucose 96 mg/dL (65-115); Osmolality Calculated 293 mOsm/kg (285-295); Potassium 3.3 mmol/L (3.5-5.1); Sodium 142 mmol/L (136-145)
[2021-12-04] MEDS: ipratropium-albuterol 3 mL Neb INHALATION ×2 (07:25→12:30)
[2021-12-04] MEDS: midodrine 5 mg TABLET 10 MG PO ×2 (08:18→15:43)
[2021-12-04] MEDS: sennosides-docusate Tablet 1 TAB PO (08:18)
[2021-12-04] MEDS: pantoprazole DR 40 mg Tablet PO (08:18)
[2021-12-04] MEDS: sulfamethoxazole-trimeth DS 160-800 mg Tablet 1 TAB PO (08:18)
[2021-12-04] MEDS: ALPRAZolam 0.5 mg Tablet 1 MG PO ×2 (08:18→15:43)
[2021-12-04] MEDS: enoxaparin 40 mg/0.4 mL Syringe SUBCUT (08:18)
[2021-12-04] MEDS: baclofen 10 mg Tablet PO ×2 (08:18→15:43)
--- NOTE | 2021-12-04 16:20 | PM.DCS ---
Discharge Providers Date of Admission: 11/30/21 15:13 Date of Discharge: December 04, 2021 Attending Provider at Admission: Mirlande Dos Santos MD Attending Provider at Discharge: Nichole Benton MD Primary Care Provider: Venancio Mota MD Diagnoses at Discharge Discharge Diagnosis (1) Pneumonia: Status: Acute (2) Community acquired pneumonia: Status: Acute (3) Hypoxia: Status: Resolved (4) NSTEMI (non-ST elevated myocardial infarction): Status: Resolved Reason for Visit Reason for Visit: SOB Hospital Course Hospital Course HPI as per Dr. Dos Santos Rebecca Coombs is a 66 year old female with past medical history of coronary artery disease, tobacco abuse, bypass surgery, COPD, hypertension, dyslipidemia and a prior DE who had underwent orbital arthrectomy and PCI of proximal to mid LAD a few months ago. She started having chest pains again later. Ranexa was added that helped with symptoms but stress test showed a large sized, reversible perfusion defect in the LAD territory. Dr. Feliciano performed coronary angiogram which showed patent stent but there was an area of pinching in the stent. IVUS was performed that showed an area of underexpansion at the site of calcification. High pressure balloon angioplasty was performed 11/03. Post angioplasty IVUS showed well expanded stent. Patient stayed in the hospital overnight. No compications were noted and he left the hospital in a stable condition. She is presented today with chief complaint of orthopnea PND and shortness of breath. Patient is stating that her symptoms started on Saturday, she was feeling weak and lethargic for quite some time, she is endorsing getting orthostatic with use of metoprolol, she has been experiencing chest congestion, nonproductive cough, orthopnea, PND however she has not noticed significant weight gain. She is compliant with her medications including Lasix. On Saturday she fell while getting up, she thinks this fall was due to orthostatic syncopal event, she remained on the floor for about 14 hours until her family checked on her, after her fall she was experiencing chest pain, her shortness of breath was not getting better, she noticed fever 101.3 as well no recent diarrhea, vomiting or dysuria. 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 Dos Santos. I saw her day of discharge only. Please see previous progress note for more details. In a nutshell, She was admitted with CAP and sputum grew staph aureus. She did receive IV abx initially. CTA ruled out pulmonary embolism. She has left lower lobe pneumonia on CTA and procalcitonin is elevated. Echo showed normal LV systolic function and grade 1 diastolic dysfunction which is unchanged from before. Cardiology was consulted as well. She qualified for home o2 at discharge. Patient had history of orthostatic hypotension and was not on any medications for it. During hospital stay she was given midodrine and her regular home medications. At discharge however there was an interaction seen between her home MAOI and midodrine. It was discussed with patient that we can try her on a different medication and watch her in the hospital for side effects. She stated that she chronically has orthostatic hypotension and would like to just follow up with her PCP. She will return to hospital if she has low bp (she was to monitor at home). 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 She had a follow up appt with her PCP soon and therefore was discharged home on bactrim. Physical Exam Narrative: EXAM NARRATIVE: NON focal neuro exam sitting w/o discomfort in bed. Offers no complaints. s1,s2, no gross murmers appreciated. euvolemic, lungs clear to auscultation bilaterally abd soft, non tender, BS + No audible stridor or wheezing LE non edematous Discharge Data Data Completed and Pending: Completed Studies During Hospitalization Category Date Time Status CT angio chest PE protcl [id number] Stat Cat Scan 11/30/21 15:03 Completed XR chest 2V* [id number] Stat Exams 11/30/21 10:55 Completed CV. echo complete * [id number] Routine Ultrasound 11/30/21 15:02 Completed Pending at discharge Category Date Time Status Blood Culture Sta t Lab 11/30/21 13:10 Results Labs from last 24 hours 12/04/21 12/04/21 05:33 05:33 WBC 7.2 RBC 3.08 L Hgb 9.2 L Hct 28.7 L MCV 93.2 MCH 29.9 MCHC 32.1 RDW 13.6 Plt Count 342 MPV 10.2 Neut % (Auto) 52.5 Lymph % (Auto) 26.7 Jennings % (Auto) 14.3 Eos % (Auto) 4.9 Baso % (Auto) 0.8 Neut # (Auto) 3.77 Lymph # (Auto) 1.9 Jennings # (Auto) 1.0 H Eos # (Auto) 0.4 Baso # (Auto) 0.1 Nucleated RBC % (a uto) 0 Nucleated RBCs # 0.0 Sodium 142 Potassium 3.3 L Chloride 110 H Carbon Dioxide 21 L Anion Gap 14.3 BUN 11 Creatinine 0.7 GFR Calculation 83.5 L Glucose 96 Calculated Osmolal ity 293 Calcium 8.5 Vitals: Last Vital Signs Temp 97.6 F 12/04/21 12:00 Pulse 89 12/04/21 12:33 Resp 18 12/04/21 12:30 BP 97/60 12/04/21 12:00 Pulse Ox 90 12/04/21 14:03 Discharge Plan Discharge Patient Disposition: Home Condition: Stable Prescriptions: New sulfamethoxazole-trimethoprim 800-160 mg Tablet 1 tab PO BID 14 Days Qty: 28 RF: 0 Continued acetaminophen [Tylenol Arthritis Pain] 650 mg tablet extended release 1,300 mg PO Q8H PRN (Reason: Pain) RF: 0 ranolazine [Ranexa] 500 mg tablet extended release 12 hr 500 mg PO BID Qty: 180 RF: 3 omeprazole 20 mg capsule,delayed release(DR/EC) 20 mg PO BID RF: 0 furosemide [Lasix] 40 mg tablet 40 mg PO QAM RF: 0 multivitamin [Daily Multi-Vitamin] Tablet 1 tab PO QAM RF: 0 ascorbate calcium (vitamin C) 500 mg tablet 500 mg PO QAM RF: 0 magnesium 250 mg tablet 250 mg PO QAM RF: 0 cholecalciferol (vitamin D3) 50 mcg (2,000 unit) tablet 2,000 unit PO QAM RF: 0 aspirin [Adult Aspirin Regimen] 81 mg tablet,delayed release (DR/EC) 81 mg PO QAM RF: 0 baclofen 10 mg tablet 10 mg PO TID RF: 0 nitroglycerin 0.4 mg tablet, sublingual 0.4 mg sublingual Q5M PRN (Reason: chest pain) Qty: 60 RF: 3 tranylcypromine [Parnate] 10 mg tablet 30 mg PO BID Qty: 180 RF: 5 fluticasone propion-salmeterol [Wixela Inhub] 100-50 mcg/dose Blister With Device 1 puff INHALATION BID RF: 0 ipratropium-albuterol 0.5 mg-3 mg(2.5 mg base)/3 mL solution for nebulization 3 ml INHALATION TID PRN (Reason: Shortness Of Breath) RF: 0 potassium chloride 20 mEq tablet,ER particles/crystals 20 meq PO QAM RF: 0 montelukast 10 mg tablet 10 mg PO QAM RF: 0 lovastatin 20 mg tablet 20 mg PO BEDTIME RF: 0 fluticasone propionate 50 mcg/actuation spray,suspension 2 spray INTRANASAL BEDTIME RF: 0 omega-3 fatty acids Capsule 1,000 mg PO DAILY@17 RF: 0 Atrovent HFA 17 mcg/actuation HFA aerosol inhaler 2 puff INHALATION Q6H PRN (Reason: ext med history shows last filled 01/02/21 75d/s) RF: 0 Plavix 75 mg tablet 75 mg PO QAM RF: 0 Changed Xanax 1 mg tablet 1 mg PO TID PRN (Reason: Anxiety) Qty: 90 RF: 5 Held metoprolol tartrate 25 mg tablet 12.5 mg PO BID Qty: 0 RF: 0 Hold Instructions: see PCP before resuming Discharge Orders: Discharge Order (Routine); Ordered 12/04/21 Ordered By: Nichole Benton Other Ambulatory Orders: DME: Oxygen (Order) Location: None Selected Ordered By: Nichole Benton Referrals: [facility] [place] [Outside] Jaiden Feliciano M.D [Physician] - 12/12/21 2:15 pm Venancio Mota MD [Primary Care Provider] - 12/14/21 (Please call [facility] and make an appointment to be seen by Dr. Mota within one week.) Discharge Diet: Cardiac and Low Salt Discharge Activity: Increase activity as tolerated and Oxygen as instructed Patient Instructions: Sulfamethoxazole/Trimethoprim (By mouth), Using Oxygen at Home (DC), Community Acquired Pneumonia (DC), Opioid Safety Discharge Attestations Time Spent in Discharge Care*: less than 30 min Quality Metrics Clinical Quality Measures During this hospital stay, did patient experience: None Coding Level of Care Code Acute Chg FW DC note Diagnoses Pneumonia J18.9 Community acquired pneumonia J18.9 Hypoxia R09.02 NSTEMI (non-ST elevated myocardial infarction) I21.4
--- NOTE | 2021-12-04 17:12 | PC.SOCIAL ---
pharmacy called about interaction with Midodrine and tranylcypromine discussed with Dr Benton and she talked with patient and gave order to not fill Midodrine patient is aware will not be discharging on this medication. Notified Valerie not to fill medication at [facility] pharmacy. [phone]
--- NOTE | 2021-12-04 18:33 | PC.NURSE ---
IV removed at this time. Patient tolerated well. Patient is A&ox3. Respirations even and non-labored on 2 liters NC. Reviewed discharge with patient at this time. Patient verbalized understanding of discharge instructions and changes to her home medications. Patient was wheel chaired to private car.
== END 2021-12-04 18:00 | disposition home or self-care (01) | DRG 177 ==
LOC: ER 12:43 → ICU 15:42 → MEDSURG 12-02 01:29
PROVIDERS: Physician Assistant; Admitting Provider Internal Medicine; Emergency Provider Family Medicine; PCP Family Medicine; Visit Provider Internal Medicine
DX: J15.211 Pneumonia due to Methicillin susceptible Staphylococcus aureus (principal); I21.A1 Myocardial infarction type 2; I50.33 Acute on chronic diastolic (congestive) heart failure; J44.1 Chronic obstructive pulmonary disease with (acute) exacerbation; J44.0 Chronic obstructive pulmonary disease with (acute) lower respiratory infection; I11.0 Hypertensive heart disease with heart failure; I95.1 Orthostatic hypotension; I25.2 Old myocardial infarction; I25.10 Atherosclerotic heart disease of native coronary artery without angina pectoris; R79.1 Abnormal coagulation profile; E86.0 Dehydration; E78.00 Pure hypercholesterolemia, unspecified; Z96.611 Presence of right artificial shoulder joint; Z95.1 Presence of aortocoronary bypass graft; Z79.82 Long term (current) use of aspirin; Z79.02 Long term (current) use of antithrombotics/antiplatelets; Z87.891 Personal history of nicotine dependence; Z90.49 Acquired absence of other specified parts of digestive tract; Z90.710 Acquired absence of both cervix and uterus; Z98.61 Coronary angioplasty status
CPT/HCPCS: 36415; 71046; 71275; 80048; 80053; 83605; 83735; 83880; 84145; 84484; 85007; 85025; 85378; 85730; 86140; 86403; 87040; 87070; 87077; 87186; 87205; 87449; 87635; 87641; 93005; 93306; 94640; 96365; 96367; 96372; 97110; 97116; 97161; 99291; J1644; J1650; J1720; J2543; J3370; J7040; J7050; Q9967

== ENCOUNTER → 2021-12-13 12:22 | Outpatient (BNVA) | payer MEDICARE, SELFPAY | PROVIDERS: PCP Family Medicine; Visit Provider Social Worker | DX: F32.9 Major depressive disorder, single episode, unspecified (principal) | CPT/HCPCS: 90834 ==

== ENCOUNTER 2022-01-09 13:55 | Inpatient (IN) | payer MEDICARE, SELFPAY ==
[2022-01-09] VITALS (11 sets, daily range): BP systolic 107–128; BP diastolic 61–86; PULSE 70–76; RESP 14–28; TEMP 36.8; O2SAT 91–96; BMI 27.9
--- NOTE | 2022-01-09 14:00 | XR_ITS ---
WS: [id number] XR chest 1V portable [id number] REASON FOR EXAM: chest pain FINDINGS: Status post aortocoronary artery bypass surgery. Mild tortuosity the thoracic aorta without aneurysma l dilatation. No significant cardiomegaly. Calcified granulomatous changes in both hemithoraces. No acute pulmonary parenchymal or pleural abnormality. Total right shoulder arthroplasty. Degenerative spondylosis in the mid and lower thoracic spine. XR/XR chest 1V portable [id number] IMPRESSION: No acute chest abnormality.
--- NOTE | 2022-01-09 14:00 | ECG_ITS ---
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 Measurements Intervals [place] Rate: 68 P: 60 MD: 190 QRS: 33 QRSD: 93 T: 121 QT: 419 QTc: 446 Interpretive Statements SINUS RHYTHM WITH OCCASIONAL VENTRICULAR PREMATURE COMPLEXES ST DEVIATION AND MODERATE T-WAVE ABNORMALITY, CONSIDER ANTERIOR ISCHEMIA [-0.1+ mV T-WAVE IN V3/V4] Compared to ECG 11/30/2021 20:06:51 Ventricular premature complex(es) now present Possible ischemia now present T-wave abnormality still present Electronically Signed On 01-09-2022 17:08:19 HYDRODYNAMICS TEACHER by Jaiden Feliciano M.D. [email or web address]
--- NOTE | 2022-01-09 14:32 | USCV_ITS ---
Rebecca Coombs Age: 66 Gender: F : 1955 Exam Date: 01/09/2022 14:51 Ordering Phys: Shari Bain MD Technologist: GIOVANNA [place] [facility] [place]: LIMITED FOR WALL MOTION ONLY BP: 103 / 80 HR: 69 Rhythm: Sinus Technical Quality: Adequate MEASUREMENTS (Male / Female) Normal Values 2D ECHO LV Diastolic Diameter PLAX 5.0 cm 4.2 - 5.9 / 3.9 - 5.3 cm LV Systolic Diameter PLAX 3.4 cm IVS Diastolic Thickness 1.7 cm 0.6 - 1.0 / 0.6 - 0.9 cm IVS Systolic Thickness 2.3 cm LVPW Diastolic Thickness 1.6 cm 0.6 - 1.0 / 0.6 - 0.9 cm LVPW Systolic Thickness 1.9 cm LVOT Diameter 2.0 cm LV Ejection Fraction 2D Teich 58.6 % LV Ejection Fraction MOD 2C 52.4 % LV Ejection Fraction 2C AL 53.7 % LA Diameter 3.5 cm LA Width 3.6 cm LA Height 4.6 cm RA Width 3.5 cm RA Height 3.9 cm Aorta at Sinotubular Diameter 3.3 cm M-MODE Aortic Annulus Diameter 3.5 cm LA Ao Ratio MM 1.1 MV E Point Septal Separation 0.4 cm FINDINGS Left Ventricle Normal left ventricular cavity size. Normal left ventricular systolic function. Left ventricular ejection fraction is estimated at 55 %. There is moderate hypokinesis of apical anterior wall, mid inferolateral and apical lateral hernandes. Right Ventricle Normal right ventricular size and systolic function. Right Atrium Normal right atrial size. Left Atrium Mildly increased left atrial size. Mitral Valve Mild mitral annular calcification. Structurally normal mitral valve. Aortic Valve Mildly thickened trileaflet aortic valve. Tricuspid Valve Structurally normal tricuspid valve. Pulmonic Valve Pulmonic valve not well visualized. Pericardium No pericardial effusion. Aorta Normal size aortic root and proximal ascending aorta. CONCLUSIONS 1. This is a limited echocardiogram. Ultrasound enhancing agent was used per protocol. 2. Normal left ventricular cavity size and systolic function. Left ventricular ejection fraction is estimated at 57 %. There is mild to moderate hypokinesis of apical anterior wall, mid inferolateral and apical lateral hernandes. 3. Direct comparison to previous study dated 30 November 2021 is not possible given prior technically difficult study. Tram Ashlyn MD (Electronically Signed) Final Date: 09 January 2022 15:39 S
[2022-01-09 14:58] LABS: Basophils # 0.1 10^3/uL (0.0-0.1); Basophils % 0.7 %; Eosinophils # 0.3 10^3/uL (0.0-0.8); Eosinophils % 3.4 %; Hematocrit 36.8 % (37.0-47.0); Hemoglobin 11.4 g/dL (11.5-15.3); Lymphocytes % 27.3 %; Mean Corpuscular Hemoglobin 29.7 pg (28.0-34.0); Mean Corpuscular Volume 95.8 fl (81-99); Mean Platelet Volume 9.5 fL (7.4-10.4); Monocytes # 0.6 10^3/uL (0.2-0.9); Monocytes % 7.8 %; Neutrophils # 4.51 10^3/uL (1.8-7.7); Neutrophils % 60.5 %; Nucleated Red Blood Cells % 0 %; Platelet Count 347 10^3/cmm (130-400); Red Blood Count 3.84 10^6/uL (4.1-5.3); Red Cell Distribution Width 13.6 % (12.1-15.1); White Blood Count 7.4 10^3/uL (4.0-10.0)
[2022-01-09] MEDS: perflutren protein-a microsphr 0.22 mg/mL SDV 3 mL IV (15:14)
[2022-01-09 15:38] LABS: Anion Gap 18.6 (5-19); Blood Urea Nitrogen 13 mg/dL (8-23); Calcium 9.7 mg/dL (8.5-10.5); Carbon Dioxide 21 mmol/L (22-29); Chloride 105 mmol/L (98-107); Glomerular Filtration Rate 71.5 mL/min (90-130); Glucose 94 mg/dL (65-115); Osmolality Calculated 290 mOsm/kg (285-295); Potassium 4.6 mmol/L (3.5-5.1); Sodium 140 mmol/L (136-145)
[2022-01-09 15:39] LABS: Troponin(5th) Baseline 111 ng/L (0-10)
[2022-01-09] MEDS: heparin 5,000 unit/mL INJ 1 mL 4000 UNIT IVP (15:44)
--- NOTE | 2022-01-09 15:45 | ED_ITS ---
HPI - General Adult General: Chief complaint: Chest Pain Stated complaint: CHEST PAIN Time Seen by Provider: 01/09/22 13:57 History of Present Illness: 66-year-old female with a history of CABG in 2005 (SVG to RCA and diag), LAD stent with revascularization in 11/2021 presenting to emergency room with acute onset of chest pain x1 hour. Patient tells me that she was at work when the chest pain suddenly started. Described to like pressure with radiation to the neck/jaw. Denies any shortness of breath, nausea vomiting/diuresis, abdominal complaints, hematuria or melena hematochezia. EKG initially by rescue showed ST depression in V2 V3 with tall R wave. Patient received aspirin nitro in route with significant improvement chest pain. Of note, patient underwent cath study and 11/[address] Pablo was found at that time to have completed RCA occlusion with SVG graft occlusion. Onset: 1 hr ago Duration:1 hr Location: home Severity:moderate/severe Associated symptoms: Reports chest pain; Deny dyspnea, nausea, rash, palpitations or vomiting Review of Systems Const: Denies: fever(s) or chills Eyes: Denies: change in vision ENMT: Denies: mouth pain Card: Reports: chest pain; Denies: palpitations Resp: Denies: dyspnea or non-productive cough GI: Denies: abdominal pain, nausea, vomiting or diarrhea : Denies: dysuria Musc: Denies: extremity pain Skin/Breast: Denies: rash or new lesions Neuro: Denies: weakness in extremities Psych: Reports: other (Normal mood) Jovany/Lymph: Denies: easy bruising PFSH ED PFSH: Medical History CAD (coronary artery disease) COPD (chronic obstructive pulmonary disease) HTN (hypertension) Hypercholesterolemia Ischemic bowel disease Major depressive disorder, recurrent, in full remission Myocardial infarction Panic disorder Psychiatric care Tobacco abuse Warfarin anticoagulation Surgical History H/O cardiac catheterization H/O hysterectomy with oophorectomy H/O rotator cuff surgery History of right shoulder replacement Hx of appendectomy S/p bilateral carpal tunnel release S/P CABG x 4 S/P right hemicolectomy 01/01/2020 Status post colonoscopy Status post laparoscopic cholecystectomy 01/01/2020 Social History Smoking and tobacco status: former smoker Quit status (tobacco): has quit using tobacco Second hand smoke exposure: No Smoking risk assessment/counseling performed?: No Reason smoking risk assessment not done: other Alcohol intake: never Marital status: Current occupational status: retired Physical Exam Const: COMMON NORMALS: alert HENMT: COMMON NORMALS: atraumatic HEAD & SCALP: atraumatic MOUTH: moist mucous membranes not abnormal Eye: COMMON NORMALS: EOMs intact bilaterally and conjunctivae normal CONJUNCTIVA: Yes conjunctivae normal Neck/C-Spine: COMMON NORMALS: full ROM and supple Resp: COMMON NORMALS: normal respiratory effort and clear to auscultation bilaterally AUSCULTATION: clear to auscultation bilaterally Cardio: COMMON NORMALS: regular rate RATE: regular rate OTHER: 2+ radial pulses b/l GI: COMMON NORMALS: Soft to palpation and non-tender PALPATION: Yes Soft to palpation Extremity: COMMON NORMALS: full ROM Neuro: SENSORIUM/ORIENTATION: Yes alert MOTOR EXAM: No Abnormal motor strength present and Other motor observations present (no focal motor deficits) Psych: COMMON NORMALS: speech normal SPEECH: Yes normal speech MOOD & AFFECT: Yes euthymic mood Course Vital Signs: Vital signs: Vital Signs Temperature 98.2 F 01/09/22 15:49 Pulse Rate 71 01/09/22 15:49 Respiratory Rate 16 01/09/22 15:49 Blood Pressure 118/76 01/09/22 15:49 Pulse Oximetry 96 01/09/22 15:49 MDM - General Adult Medical Decision Making 86-year-old female with history of CABG, LAD stent presenting to the emergency room for evaluation of few acute onset chest pain x1 hour. On exam, patient is hemodynamically stable, 2+ upper extremity pulses. Patient currently has mild chest pain. Patient received nitro and now is currently chest pain-free. Route, patient received aspirin 325 nitro x1. Initial EKG by rescue showed ST depression in V2-V3 with tall R waved in both leads, repeat EKG in the emergency room showed similar findings which is new compared to prior EKG. Case was immediately discussed with Dr. Nowak upon arrival for concern for possible posterior STEMI. In the setting of chronic RCA occlusion and right dominance from prior cath report from 11/2021, today's chest pain may be due a embolization from the total RCA occlusion from 11/2021. At the present time, Brittnee Nowak recommend medical management with heparin Plavix and aspirin instead of emergent revascularization. She has initial troponin of 111. Currently chest pain-free. Formal echo was performed and discussed with Dr. Goldberg who also saw posterior lateral wall motion abnormality. However we are unable to compared to prior studies from 11/2021 given the fact that it was a limited study and it is unclear that the wall motion abnormality is new today. As patient is chest pain-free, Dr. Nowak declined taking patient to the Sh[facility] emergently and recommend medical management this time with close serial troponins and follow- up. Dispositoin: admsion Lab Data : 01/09/22 14:40 01/09/22 14:40 Radiology Impressions Chest X-Ray 01/09/22 14:00 IMPRESSION: No acute chest abnormality. Laboratory Results WBC 7.4 10^3/uL (4.0-10.0) 01/09/22 14:40 RBC 3.84 10^6/uL (4.1-5.3) L 01/09/22 14:40 Hgb 11.4 g/dL (11.5-15.3) L 01/09/22 14:40 Hct 36.8 % (37.0-47.0) L 01/09/22 14:40 MCV 95.8 fl (81-99) 01/09/22 14:40 MCH 29.7 pg (28.0-34.0) 01/09/22 14:40 MCHC 31.0 g/dL (30.0-36.0) 01/09/22 14:40 RDW 13.6 % (12.1-15.1) 01/09/22 14:40 Plt Count 347 10^3/cmm (130-400) 01/09/22 14:40 MPV 9.5 fL (7.4-10.4) 01/09/22 14:40 Neut % (Auto) 60.5 % 01/09/22 14:40 Lymph % (Auto) 27.3 % 01/09/22 14:40 [place] % (Auto) 7.8 % 01/09/22 14:40 Eos % (Auto) 3.4 % 01/09/22 14:40 Baso % (Auto) 0.7 % 01/09/22 14:40 Neut # (Auto) 4.51 10^3/uL (1.8-7.7) 01/09/22 14:40 Lymph # (Auto) 2.0 10^3/uL (0.8-4.8) 01/09/22 14:40 [place] # (Auto) 0.6 10^3/uL (0.2-0.9) 01/09/22 14:40 Eos # (Auto) 0.3 10^3/uL (0.0-0.8) 01/09/22 14:40 Baso # (Auto) 0.1 10^3/uL (0.0-0.1) 01/09/22 14:40 Nucleated RBC % (auto) 0 % 01/09/22 14:40 Nucleated RBCs # 0.0 /100WBC 01/09/22 14:40 Sodium 140 mmol/L (136-145) 01/09/22 14:40 Potassium 4.6 mmol/L (3.5-5.1) 01/09/22 14:40 Chloride 105 mmol/L (98-107) 01/09/22 14:40 Carbon Dioxide 21 mmol/L (22-29) L 01/09/22 14:40 Anion Gap 18.6 (5-19) 01/09/22 14:40 BUN 13 mg/dL (8-23) 01/09/22 14:40 Creatinine 0.8 mg/dL (0.5-0.9) 01/09/22 14:40 GFR Calculation 71.5 mL/min (90-130) L 01/09/22 14:40 Glucose 94 mg/dL (65-115) 01/09/22 14:40 Calculated Osmolality 290 mOsm/kg (285-295) 01/09/22 14:40 Calcium 9.7 mg/dL (8.5-10.5) 01/09/22 14:40 Troponin T Baseline 111 ng/L (0-10) H* 01/09/22 14:40 Imaging Data Other Imaging: Radiologist's impression: [address] [address] Ultrasound Report Signed Patient: Rebecca Coombs Unit #: [id number] : 1955 Age/Sex: 66 / F ADM Date: 01/09/22 Loc: ER Room/Bed: Attending Dr: Ordering Provider/Ordering MD: Shari Bain MD Date of Service: 01/09/22 Procedure(s): CV. echo lmt w/w contras [id number] Accession Number(s): [id number] Report Number: [id number] ?Rebecca Coombs ?Age:? ? 66 ? ? Gender: ? ? F ?:? ? 1955 ?Exam Date: ? ? 01/09/2022 14:51 ?Ordering Phys: ? ? Shari Bain? ?Technologist:? ? ? KB ?Exam Location:? ? ? [facility]_ ?MRN:? ? [id number] ?Account Number: ? ? ? [id number] ?Indication:? ? ? LIMITED FOR WALL MOTION ONLY ?BP: ? 103 ? ? / ? 80? ? ? HR: ? 69 ?Rhythm: ? Sinus ?Technical Quality:? ? ? Adequate ?MEASUREMENTS? (Male / Female) Normal Values ?2D ECHO ?LV Diastolic Diameter PLAX? 5.0 cm? 4.2 - 5.9 / 3.9 - 5.3 cm ?LV Systolic Diameter PLAX ? 3.4 cm?IVS Diastolic Thickness ? 1.7 cm? 0.6 - 1.0 / 0.6 - 0.9 cm ?IVS Systolic Thickness? 2.3 cm?LVPW Diastolic Thickness? 1.6 cm? 0.6 - 1.0 / 0.6 - 0.9 cm ?LVPW Systolic Thickness ? 1.9 cm?LVOT Diameter ? 2.0 cm?LV Ejection Fraction 2D Teich ? ? 58.6 %?LV Ejection Fraction MOD 2C ? ? ? 52.4 %?LV Ejection Fraction 2C AL? 53.7 %?LA Diameter ? 3.5 cm?LA Width? 3.6 cm?LA Height ? 4.6 cm?RA Width? 3.5 cm?RA Height ? 3.9 cm?Aorta at Sinotubular Diameter ? ? 3.3 cm?M-MODE ?Aortic Annulus Diameter ? 3.5 cm?LA Ao Ratio MM? 1.1 ?MV E Point Septal Separation? ? ? 0.4 cm?FINDINGS ?Left Ventricle ?Normal left ventricular cavity size. Normal left ventricular ?systolic function. Left ventricular ejection fraction is ?estimated at 55 %. There is moderate hypokinesis of apical ?anterior wall, mid inferolateral and apical lateral hernandes. ?Right Ventricle ?Normal right ventricular size and systolic function. ?Right Atrium ?Normal right atrial size. ?Left Atrium ?Mildly increased left atrial size. ?Mitral Valve ?Mild mitral annular calcification. Structurally normal mitral ?valve. ?Aortic Valve ?Mildly thickened trileaflet aortic valve. ?Tricuspid Valve ?Structurally normal tricuspid valve. ?Pulmonic Valve ?Pulmonic valve not well visualized. ?Pericardium ?No pericardial effusion. ?Aorta ?Normal size aortic root and proximal ascending aorta. ?CONCLUSIONS ?1.? This is a limited echocardiogram.? Ultrasound enhancing ?agent was used per protocol. ?2.? Normal left ventricular cavity size and systolic function. ?Left ventricular ejection fraction is estimated at 57 %. There ?is mild to moderate hypokinesis of apical anterior wall, mid ?inferolateral and apical lateral hernandes. ?3.? Direct comparison to previous study dated 30 November 2021 ?is not possible given prior technically difficult study. ?Tram Goldberg MD ?(Electronically Signed) ?Final Date:? ? ? 09 January 2022 ? 15:[address] [address] XRay Report Signed Patient: Rebecca Coombs Unit #: [id number] : 1955 Age/Sex: 66 / F ADM Date: 01/09/22 Loc: ER Room/Bed: Attending Dr: Ordering Provider/Ordering MD: Shari Bain MD Date of Service: 01/09/22 Procedure(s): XR chest 1V portable [id number] Accession Number(s): [id number] Report Number: [id number] WS: [id number] XR chest 1V portable [id number] REASON FOR EXAM: chest pain FINDINGS: Status post aortocoronary artery bypass surgery. Mild tortuosity the thoracic aorta without aneurysmal dilatation. No significant cardiomegaly. Calcified granulomatous changes in both hemithoraces. No acute pulmonary parenchymal or pleural abnormality. Total right shoulder arthroplasty. Degenerative spondylosis in the mid and lower thoracic spine. XR/XR chest 1V portable [id number] IMPRESSION: No acute chest abnormality. ? ? Dictated By: Oliverio Malone Jr, MD Signed By: Oliverio Malone Jr, MD Signed Date/Time: 01/09/221607 DD/ 160 Discharge Plan Discharge Patient Disposition: Admitted As Inpatient Clinical Impression: Chest pain Condition: Stable Coding Level of Care Code ED Industrial Organization Manager for Chg Fwd Exam Comprehensive
[2022-01-09] MEDS: clopidogrel 300 mg Tablet 600 MG PO (15:46)
[2022-01-09] MEDS: aspirin 325 mg Tablet PO (15:46)
--- NOTE | 2022-01-09 16:00 | ECG_ITS ---
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 Measurements Intervals [place] Rate: 72 P: 65 UT: 197 QRS: 48 QRSD: 99 T: 95 QT: 421 QTc: 461 Interpretive Statements SINUS RHYTHM MODERATE ST DEPRESSION [0.05+ mV ST DEPRESSION] Compared to ECG 01/09/2022 14:30:18 ST (T wave) deviation now present Myocardial infarct finding no longer present Electronically Signed On 01-09-2022 17:15:41 NETWORK FIREWALL ENGINEER by Jaiden Feliciano M.D. [id number]
--- NOTE | 2022-01-09 16:13 | PC.NURSE ---
Pt had sudden onset of bilateral jaw pain that then radiated into neck and chest while at orthopedic clinic. This was around 2.5 hours ago. Pt has a hx of CABG. At this time patient denies chest pain. She is alert, oriented x 4.
[2022-01-09 16:41] LABS: INR 1.07 (0.8-1.2)
[2022-01-09] MEDS: heparin drip 25,000 UNIT/500 ML PREMIX 20.03 UNIT IV (16:41)
[2022-01-09 16:51] LABS: Partial Thromboplastin Time 141.4 SECONDS (23.9-36.7)
[2022-01-09 16:57] LABS: Troponin 5 2HR 98.65 ng/L (0-10)
[2022-01-09 17:00] LABS: Troponin 5 2HR Delta -12.35 ABS# (0-10)
--- NOTE | 2022-01-09 20:00 | ECG_ITS ---
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 Measurements Intervals [place] Rate: 70 P: 58 ND: 177 QRS: 39 QRSD: 98 T: 116 QT: 411 QTc: 446 Interpretive Statements SINUS RHYTHM ANTEROLATERAL MYOCARDIAL INFARCTION , OF INDETERMINATE AGE [40+ ms Q WAVE IN I/aVL/V3-V6] Compared to ECG 01/09/2022 14:27:33 Myocardial infarct finding now present Ventricular premature complex(es) no longer present T-wave abnormality no longer present Possible ischemia no longer present Electronically Signed On 01-09-2022 17:16:11 DENTAL CERAMIST HELPER by Jaiden Feliciano M.D. [id number]
--- NOTE | 2022-01-09 20:22 | PM.HP ---
Providers/Chief Complaint Primary Care Provider: Venancio Mota MD Chief Complaint: CHEST PAIN History of Present Illness Rebecca Coombs is a 66 year old female with past medical history of coronary artery disease, tobacco abuse, bypass surgery, COPD, hypertension, dyslipidemia and a prior OH who had underwent orbital arthrectomy and PCI of proximal to mid LAD a few months ago complicated by area of pinching in the stent s/p High pressure balloon angioplasty was on 11/03. Recent admission 11/30-12/04 for orthopnea PND and shortness of breath, syncope; diagnosed with NSTEMI, CHF exacerbation, possible left-sided pneumonia, treated with iv zosyn and vancomycin. CTA ruled out pulmonary embolism.She qualified for home o2 at discharge. It appears her anti anginals have been unable to titrated up in the past due to orthostatsic hypotension. Midodrine was declined due to interaction with MAOIs. She was at an orthopedics appt today where she started experiencing chest heaviness and jaw pain and was directed to the emergency room with ambulance. EKG initially by rescue showed ST depression in V2 V3 with tall R wave.? Patient received aspirin nitro in route with significant improvement chest pain.?Case was discussed with Dr. Nowak upon arrival by ERP for concern for possible posterior STEMI, however symptoms appear more related to known CAD and occlusion. Medical mgmt was recommended with heparin, ASA, Plavix. Baseline trop of 111. Echo performed today showed hypokinesia of apical anterior wall, mid ?inferolateral and apical lateral hernandes, however unable to be comppared to prior studies. Currently chest pain-free.? Review of Systems General: Reports: 10 or more systems reviewed and unremarkable except in HPI and below Medications/Allergies Home Medications Medication Instructions Recorded Confirmed Last Taken Type ascorbate calcium (vitamin C) 500 1,000 mg PO QAM tab 12/08/19 01/09/22 01/09/22 History mg tablet furosemide 40 mg tablet (Lasix) 40 mg PO QAM 12/08/19 01/09/22 01/09/22 History magnesium 250 mg tablet 250 mg PO QAM 12/08/19 01/09/22 01/09/22 History multivitamin (Daily Multi-Vitamin) 1 tab PO QAM 12/08/19 01/09/22 01/09/22 History omeprazole 20 mg capsule,delayed 20 mg PO BID 12/08/19 01/09/22 01/09/22 History release fluticasone 100 mcg-salmeterol 50 1 puff INHALATION BID 01/01/20 01/09/22 11/03/21 08:00 History mcg/dose blistr powdr for inhalation (Xiao Inhub) aspirin 81 mg tablet,delayed 81 mg PO QAM 08/30/20 01/09/22 01/09/22 History release (Adult Aspirin Regimen) nitroglycerin 0.4 mg sublingual 0.4 mg SUBLINGUAL Q5M PRN #60 tab 11/09/20 01/09/22 01/09/22 13:30 Rx tablet baclofen 10 mg tablet 10 mg PO TID 04/05/21 01/09/22 01/09/22 10:00 History cholecalciferol (vitamin D3) 50 2,000 unit PO QAM tab 06/01/21 01/09/22 01/09/22 History mcg (2,000 unit) tablet acetaminophen 650 mg 1,300 mg PO Q8H PRN 08/29/21 01/09/22 01/08/22 History tablet,extended release (Tylenol Arthritis Pain) clopidogrel 75 mg tablet (Plavix) 75 mg PO QAM 11/30/21 01/09/22 01/09/22 History fluticasone propionate 50 2 spray INTRANASAL BEDTIME 11/30/21 01/09/22 11/29/21 History mcg/actuation nasal spray,suspension ipratropium 0.5 mg-albuterol 3 mg 3 ml INHALATION TID PRN 11/30/21 01/09/22 Unknown History (2.5 mg base)/3 mL nebulization soln ipratropium bromide 17 2 puff INHALATION Q6H PRN 11/30/21 01/09/22 Unknown History mcg/actuation HFA aerosol inhaler (Atrovent HFA) lovastatin 20 mg tablet 20 mg PO BEDTIME 11/30/21 01/09/22 01/08/22 History montelukast 10 mg tablet 10 mg PO QAM 11/30/21 01/09/22 01/09/22 History omega-3 fatty acids 1,000 mg PO DAILY@17 11/30/21 01/09/22 11/29/21 History potassium chloride 20 mEq 20 meq PO QAM 11/30/21 01/09/22 01/09/22 History tablet,extended release(part/cryst) alprazolam 1 mg tablet (Xanax) 1 mg PO TID PRN #90 tab 12/04/21 01/09/22 11/30/21 Rx diclofenac sodium 1 % topical gel 2 g TOPICAL QID PRN 01/09/22 01/09/22 Unknown History docusate sodium 100 mg capsule 100 mg PO BID 01/09/22 01/09/22 01/09/22 History (Colace) lidocaine 5 % topical ointment See Rx Instructions .ROUTE .COMPLEX 01/09/22 01/09/22 Unknown History melatonin 10 mg tablet 10 mg PO BEDTIME PRN 01/09/22 01/09/22 Unknown History metoprolol tartrate 25 mg tablet 12.5 mg PO BID 01/09/22 01/09/22 01/09/22 History tranylcypromine 10 mg tablet 30 mg PO BID@10,17 01/09/22 01/09/22 01/09/22 10:00 History (Parnate) ranolazine 500 mg tablet,extended See Rx Instructions .ROUTE 01/10/22 Unknown Rx release,12 hr (Ranexa) .COMPLEX #30 tab Allergies Allergy/AdvReac Type Severity Reaction Status Date / Time epinephrine Allergy Unknown Unknown Verified 01/09/22 16:27 pregabalin [From Lyrica] Allergy Unknown Verified 01/09/22 16:27 codeine AdvReac Unknown Unknown Verified 01/09/22 16:27 gabapentin [From Neurontin] AdvReac Unknown Unknown Verified 01/09/22 16:27 methadone AdvReac Unknown Unknown Verified 01/09/22 16:27 oxycodone [From OxyContin] AdvReac Unknown Unknown Verified 01/09/22 16:27 Zfliime-GDJ-MiL Reductase AdvReac Unknown Unknown Verified 01/09/22 16:27 Inhibitor [Otgtnmj-Khn-Qbs Reductase Inhibitor] tramadol AdvReac Unknown Unknown Verified 01/09/22 16:27 PFSH Acute PFSH: Medical History CAD (coronary artery disease) COPD (chronic obstructive pulmonary disease) HTN (hypertension) Hypercholesterolemia Ischemic bowel disease Major depressive disorder, recurrent, in full remission Myocardial infarction Panic disorder Psychiatric care Tobacco abuse Warfarin anticoagulation Surgical History H/O cardiac catheterization H/O hysterectomy with oophorectomy H/O rotator cuff surgery History of right shoulder replacement Hx of appendectomy S/p bilateral carpal tunnel release S/P CABG x 4 S/P right hemicolectomy 01/01/2020 Status post colonoscopy Status post laparoscopic cholecystectomy 01/01/2020 Social History Smoking and tobacco status: former smoker Quit status (tobacco): has quit using tobacco Second hand smoke exposure: No Smoking risk assessment/counseling performed?: No Reason smoking risk assessment not done: other Alcohol intake: never Marital status: Current occupational status: retired Vitals/I&O/Wt Last Vital Signs Temp 98.2 F 01/09/22 15:49 Pulse 75 01/09/22 19:30 Resp 16 01/09/22 19:30 BP 128/76 01/09/22 19:30 Pulse Ox 94 01/09/22 19:30 Weight last 48 hrs Weight 83.461 kg Physical Exam Narrative: GEN: Awake, alert and oriented, no acute distress CVS: S1S2 N RS: CTA B/L Abd: Soft, nt/nd , bs+ FLAT LOCK MACHINE OPERATOR: no focal neuro deficits Data : 01/10/22 03:55 01/10/22 03:55 A&P Assessment and plan (1) Chest pain: Status: Acute (2) NSTEMI (non-ST elevated myocardial infarction): Status: Acute Plan 66-year-old lady with past medical history as outlined above, presenting today with chest pain that started while she was at her orthopedics appointment. Currently she is chest pain-free after receiving nitro. Initially some concern for possible posterior wall OH, cardiology service has been consulted from ER. Recommended medical management. Started on a heparin drip which can continue. Continue aspirin Plavix and lovastatin. Continue home medications including metoprolol and Lasix 40 mg p.o. every morning. Baseline troponin at 111, trending down at 2 hours. Negative delta. Awaiting 6-hour troponin. Further recommendations based on troponin trend, overnight continuous EKG monitoring and cardiology evaluation. Attestations Medical Necessity Statement*: Anticipate greater than 2 midnight admission for NSTEMI, heparin drip, cardiology assessment. Coding Level of Care Code Acute Direct Response Consultant for Chg Fwd Diagnoses Chest pain R07.9 NSTEMI (non-ST elevated myocardial infarction) I21.4
[2022-01-09 21:21] LABS: Troponin 5 6HR 96.53 ng/L (0-10)
[2022-01-09] MEDS: baclofen 10 mg Tablet PO (21:35)
[2022-01-10] VITALS (7 sets, daily range): BP systolic 104–149; BP diastolic 56–84; PULSE 68–86; RESP 15–22; O2SAT 92–95
[2022-01-10] MEDS: morphine 4 mg/mL SDV 1 mL 2 MG IVP (02:27)
[2022-01-10 04:11] LABS: Basophils # 0.1 10^3/uL (0.0-0.1); Basophils % 0.9 %; Eosinophils # 0.2 10^3/uL (0.0-0.8); Eosinophils % 3.7 %; Hemoglobin 10.1 g/dL (11.5-15.3); Lymphocytes # 2.7 10^3/uL (0.8-4.8); Lymphocytes % 42.3 %; Mean Corpuscular HGB Conc 30.6 g/dL (30.0-36.0); Mean Corpuscular Hemoglobin 29.4 pg (28.0-34.0); Mean Corpuscular Volume 96.2 fl (81-99); Mean Platelet Volume 9.6 fL (7.4-10.4); Monocytes # 0.7 10^3/uL (0.2-0.9); Monocytes % 10.2 %; Neutrophils # 2.75 10^3/uL (1.8-7.7); Neutrophils % 42.6 %; Nucleated Red Blood Cells % 0 %; Platelet Count 299 10^3/cmm (130-400); Red Blood Count 3.43 10^6/uL (4.1-5.3); Red Cell Distribution Width 13.9 % (12.1-15.1); White Blood Count 6.5 10^3/uL (4.0-10.0)
[2022-01-10 04:31] LABS: Alanine Aminotransferase 7 U/L (0-33); Albumin Level 3.6 g/dL (3.5-5.2); Alkaline Phosphatase 87 IU/L (35-105); Anion Gap 14.1 (5-19); Aspartate Amino Transferase 14 U/L (0-32); Blood Urea Nitrogen 13 mg/dL (8-23); Carbon Dioxide 23 mmol/L (22-29); Chloride 104 mmol/L (98-107); Creatinine Clr Calc Pharmacy 77.2656; Globulin 2.8 g/dL (1.3-4.6); Glomerular Filtration Rate 83.5 mL/min (90-130); Glucose 84 mg/dL (65-115); Osmolality Calculated 283 mOsm/kg (285-295); Potassium 4.1 mmol/L (3.5-5.1); Sodium 137 mmol/L (136-145); Total Bilirubin 0.2 mg/dL (0.15-1.2); Total Protein 6.4 g/dL (6.6-8.7)
[2022-01-10 05:03] LABS: Slide Review Slide Review Perform
[2022-01-10] MEDS: FUROsemide 40 mg Tablet PO (05:41)
[2022-01-10] MEDS: aspirin 81 mg EC Tablet PO (05:41)
[2022-01-10] MEDS: clopidogrel 75 mg Tablet PO (05:41)
[2022-01-10] MEDS: potassium chloride ER 20 mEq Tablet PO (05:41)
[2022-01-10 07:11] LABS: Partial Thromboplastin Time 40.9 SECONDS (23.9-36.7)
[2022-01-10] MEDS: baclofen 10 mg Tablet PO (09:12)
[2022-01-10] MEDS: docusate sodium 100 mg Capsule PO (09:13)
[2022-01-10] MEDS: pantoprazole DR 40 mg Tablet PO (09:13)
[2022-01-10] MEDS: metoprolol tartrate 25 mg Tablet 12.5 MG PO (09:13)
[2022-01-10] MEDS: TRANYLCYPROMINE 10 MG 30 EACH PO (09:15)
[2022-01-10] MEDS: acetaminophen 325 mg Tablet 650 MG PO (09:17)
--- NOTE | 2022-01-10 11:17 | PM.CONSULT ---
Providers/Reason For Consult Consulting Physician/Specialty*: Mirlande Nowak MD Reason for Consult*: Jaw pain with abnormal EKG and high cardiac markers Requesting Physician: Dr. HENNESSY Attending Physician: Theresa Mccollum MD Primary Care Provider: Venancio Mota MD History of Present Illness History of Present Illness Rebecca Coombs is a 66 year old female past medical history significant for history of coronary artery disease status post CABG 15 years ago history of coronary angiograms x2 in the last 4 months when she was noted to have chronically occluded mid RCA while SVG to RCA was also noted to be chronically occluded, left main did not show significant stenosis, LAD was not treated with JIANG proximal stent was placed in November 2021, there was a moderate ostial circumflex lesion, SVG to obtuse marginal was patent distal graft has 40 to 50% lesion. Since patient has previously chronically occluded mid RCA and chronically occluded SVG graft to RCA she continues to have off-and-on angina her medicine was optimized with statin nitroglycerin ranolazine. She did fine for a while yesterday she presented with jaw pain. Twelve-lead EKG was suggestive of mild anterior ST depression which was not significantly different from the prior EKG. Initial cardiac markers was 111 by third generation troponin with delta troponin in the negative range. Currently patient is chest pain-free. She would not like to go with coronary angiogram. She agreed to stress test. She is staying in the ER [facility] the [facility] for the last 48 hours. We offered her stress test and she would like to go back home and come tomorrow morning to get a stress test. Patient has been advised in case of worsening of chest pain she should return to the hospital. I will optimize her medicine further with increasing ranolazine 100 mg in the morning and 500 in the evening. Review of Systems General: Reports: 10 or more systems reviewed and unremarkable except in HPI and below Const: Denies: fever(s) or chills Eyes: Denies: change in vision ENMT: Denies: mouth pain Card: Reports: chest pain; Denies: palpitations Resp: Denies: dyspnea or non-productive cough GI: Denies: abdominal pain, nausea, vomiting or diarrhea : Denies: dysuria Musc: Denies: extremity pain Skin/Breast: Denies: rash or new lesions Neuro: Denies: weakness in extremities Psych: Reports: other (Normal mood) Jovany/Lymph: Denies: easy bruising Medications/Allergies Home Medications Medication Instructions Recorded Confirmed Last Taken Type ascorbate calcium (vitamin C) 500 1,000 mg PO QAM tab 12/08/19 01/09/22 01/09/22 History mg tablet furosemide 40 mg tablet (Lasix) 40 mg PO QAM 12/08/19 01/09/22 01/09/22 History magnesium 250 mg tablet 250 mg PO QAM 12/08/19 01/09/22 01/09/22 History multivitamin (Daily Multi-Vitamin) 1 tab PO QAM 12/08/19 01/09/22 01/09/22 History omeprazole 20 mg capsule,delayed 20 mg PO BID 12/08/19 01/09/22 01/09/22 History release fluticasone 100 mcg-salmeterol 50 1 puff INHALATION BID 01/01/20 01/09/22 11/03/21 08:00 History mcg/dose blistr powdr for inhalation (Marquisela Inhub) aspirin 81 mg tablet,delayed 81 mg PO QAM 08/30/20 01/09/22 01/09/22 History release (Adult Aspirin Regimen) nitroglycerin 0.4 mg sublingual 0.4 mg SUBLINGUAL Q5M PRN #60 tab 11/09/20 01/09/22 01/09/22 13:30 Rx tablet baclofen 10 mg tablet 10 mg PO TID 04/05/21 01/09/22 01/09/22 10:00 History cholecalciferol (vitamin D3) 50 2,000 unit PO QAM tab 06/01/21 01/09/22 01/09/22 History mcg (2,000 unit) tablet acetaminophen 650 mg 1,300 mg PO Q8H PRN 08/29/21 01/09/22 01/08/22 History tablet,extended release (Tylenol Arthritis Pain) clopidogrel 75 mg tablet (Plavix) 75 mg PO QAM 11/30/21 01/09/22 01/09/22 History fluticasone propionate 50 2 spray INTRANASAL BEDTIME 11/30/21 01/09/22 11/29/21 History mcg/actuation nasal spray,suspension ipratropium 0.5 mg-albuterol 3 mg 3 ml INHALATION TID PRN 11/30/21 01/09/22 Unknown History (2.5 mg base)/3 mL nebulization soln ipratropium bromide 17 2 puff INHALATION Q6H PRN 11/30/21 01/09/22 Unknown History mcg/actuation HFA aerosol inhaler (Atrovent HFA) lovastatin 20 mg tablet 20 mg PO BEDTIME 11/30/21 01/09/22 01/08/22 History montelukast 10 mg tablet 10 mg PO QAM 11/30/21 01/09/22 01/09/22 History omega-3 fatty acids 1,000 mg PO DAILY@17 11/30/21 01/09/22 11/29/21 History potassium chloride 20 mEq 20 meq PO QAM 11/30/21 01/09/22 01/09/22 History tablet,extended release(part/cryst) alprazolam 1 mg tablet (Xanax) 1 mg PO TID PRN #90 tab 12/04/21 01/09/22 11/30/21 Rx diclofenac sodium 1 % topical gel 2 g TOPICAL QID PRN 01/09/22 01/09/22 Unknown History docusate sodium 100 mg capsule 100 mg PO BID 01/09/22 01/09/22 01/09/22 History (Colace) lidocaine 5 % topical ointment See Rx Instructions .ROUTE .COMPLEX 01/09/22 01/09/22 Unknown History melatonin 10 mg tablet 10 mg PO BEDTIME PRN 01/09/22 01/09/22 Unknown History metoprolol tartrate 25 mg tablet 12.5 mg PO BID 01/09/22 01/09/22 01/09/22 History tranylcypromine 10 mg tablet 30 mg PO BID@10,17 01/09/22 01/09/22 01/09/22 10:00 History (Parnate) ranolazine 500 mg tablet,extended See Rx Instructions .ROUTE 01/10/22 Unknown Rx release,12 hr (Ranexa) .COMPLEX #30 tab Allergies Allergy/AdvReac Type Severity Reaction Status Date / Time epinephrine Allergy Unknown Unknown Verified 01/09/22 16:27 pregabalin [From Lyrica] Allergy Unknown Verified 01/09/22 16:27 codeine AdvReac Unknown Unknown Verified 01/09/22 16:27 gabapentin [From Neurontin] AdvReac Unknown Unknown Verified 01/09/22 16:27 methadone AdvReac Unknown Unknown Verified 01/09/22 16:27 oxycodone [From OxyContin] AdvReac Unknown Unknown Verified 01/09/22 16:27 Vwdmtkj-WZT-VdT Reductase AdvReac Unknown Unknown Verified 01/09/22 16:27 Inhibitor [Qsshgop-Kgz-Lsk Reductase Inhibitor] tramadol AdvReac Unknown Unknown Verified 01/09/22 16:27 Current Medications Generic Name Dose Route Start Last Admin Trade Name Freq PRN Reason Stop Dose Admin Acetaminophen 650 mg 01/09/22 20:33 01/10/22 09:17 Acetaminophen 325 Mg Tablet PO 650 mg Q6H PRN Administration Mild/Mod Pain Or Temp >/= 101 Alprazolam 1 mg 01/09/22 20:35 01/10/22 09:17 Alprazolam 1 Mg Tablet PO 1 mg TID PRN Administration Anxiety Aspirin 81 mg 01/10/22 06:00 01/10/22 05:41 Aspirin 81 Mg Ec Tablet PO 81 mg QAM ANTONIETTA Administration Baclofen 10 mg 01/09/22 21:00 01/10/22 09:12 Baclofen 10 Mg Tablet PO 10 mg TID ANTONIETTA Administration Clopidogrel Bisulfate 75 mg 01/10/22 06:00 01/10/22 05:41 Clopidogrel 75 Mg Tablet PO 75 mg QAM ANTONIETTA Administration Docusate Sodium 100 mg 01/10/22 09:00 01/10/22 09:13 Docusate Sodium 100 Mg Capsule PO 100 mg BID ANTONIETTA Administration Furosemide 40 mg 01/10/22 06:00 01/10/22 05:41 Furosemide 40 Mg Tablet PO 40 mg QAM ANTONIETTA Administration Heparin Sodium/Sodium Chloride 25,000 unit in 500 mls @ 20.031 mls/hr 01/09/22 16:45 01/09/22 16:41 Heparin Drip IV 12 unit/kg/hr .Q24H ANTONIETTA 20.03 mls/hr Administration 12 UNIT/KG/HR Metoprolol Tartrate 12.5 mg 01/10/22 09:00 01/10/22 09:13 Metoprolol Tartrate 25 Mg Tablet PO 12.5 mg BID ANTONIETTA Administration Morphine Sulfate 2 mg 01/09/22 16:09 01/10/22 02:27 Morphine 4 Mg/Ml Sdv 1 Ml IVP 2 mg Q4H PRN Administration SEVERE PAIN Non-Formulary Medication 30 mg 01/10/22 10:00 01/10/22 09:15 Tranylcypromine [Parnate] PO 30 mg BID@10,17 ANTONIETTA Administration Non-Formulary Medication 250 mg 01/10/22 06:00 01/10/22 09:08 Magnesium PO Not Given QAM ANTONIETTA Pantoprazole Sodium 40 mg 01/10/22 09:00 01/10/22 09:[address] 40 Mg Tablet PO 40 mg DAILY ANTONIETTA Administration Potassium Chloride 20 meq 01/10/22 06:00 01/10/22 05:41 Potassium Chloride Er 20 Meq Tablet PO 20 meq QAM ANTONIETTA Administration PFSH Acute PFSH: Medical History CAD (coronary artery disease) COPD (chronic obstructive pulmonary disease) HTN (hypertension) Hypercholesterolemia Ischemic bowel disease Major depressive disorder, recurrent, in full remission Myocardial infarction Panic disorder Psychiatric care Tobacco abuse Warfarin anticoagulation Surgical History H/O cardiac catheterization H/O hysterectomy with oophorectomy H/O rotator cuff surgery History of right shoulder replacement Hx of appendectomy S/p bilateral carpal tunnel release S/P CABG x 4 S/P right hemicolectomy 01/01/2020 Status post colonoscopy Status post laparoscopic cholecystectomy 01/01/2020 Social History Smoking and tobacco status: former smoker Quit status (tobacco): has quit using tobacco Second hand smoke exposure: No Smoking risk assessment/counseling performed?: No Reason smoking risk assessment not done: other Alcohol intake: never Marital status: Current occupational status: retired Dietary Habits: Current diet type/program: low salt Caffeine: Yes Vitals/I&O/Wt Last Vital Signs Temp 98.2 F 01/09/22 15:49 Pulse 86 01/10/22 10:41 Resp 18 01/10/22 10:41 BP 104/62 01/10/22 06:00 Pulse Ox 94 01/10/22 10:41 Weight last 48 hrs Weight 184 lb Physical Exam Chest: OTHER: GENERAL: Patient is alert, awake and oriented x3. NECK: No jugular vein distension. HEENT: No cyanosis. No icterus. No pallor. HEART: Regular S1 and S2. No murmur, rub or gallop. LUNGS: Clear to auscultate bilaterally. ABDOMEN: Soft, nontender and nondistended. Positive bowel sounds. No guarding, rebound or tenderness. CENTRAL NERVOUS SYSTEM: Grossly nonfocal. EXTREMITIES: Lower extremities without edema bilaterally. Data : 01/10/22 03:55 01/10/22 03:55 A&P Assessment and plan (1) S/P CABG x 4: Patient has complicated history of multivessel coronary disease and coronary artery bypass surgery. As defined above patient has chronically occluded RCA and its saphenous venous graft on the prior angiogram. 7 saphenous graft to circumflex was patent with moderate disease in the distal and, in November 2021 proximal LAD was treated with drug-eluting stent. Since then patient has on off and on chest pain it was thought to be small vessel disease and due to chronically occluded RCA with occluded graft. Her medicine was optimized. Yesterday she presented with similar kind of jaw pain however first cardiac markers was elevated with delta negative. Patient is not interested in any invasive procedure, she has saphenous venous graft to circumflex with distal moderate lesion, at this point we will offer her stress test. Hospital is at full capacity and there is no room with more than 12-15 borders in the ER. She will have a stress test back tomorrow. Patient would like to go home and come back in the morning. I will increase his ranolazine as defined above we will continue current regimen. She lives 3 miles from here. Advised patient in case of worsening of chest pain she should take nitroglycerin and come back to the ER. Further plan be advised as per progress of the patient and after seeing her stress test result. Status: Acute (2) HTN (hypertension): Well-controlled. Continue current regimen Status: Acute Consult Attestations Medical Necessity Statement: Patient can be discharged home as above patient may can return if she has more chest pain. She will be offered stress test in the morning Coding Level of Care Code New Pt Acute [employer] for Lillian Yang Patient Type New History Detailed Exam Detailed Medical Decision Making Moderate Complexity Diagnoses S/P CABG x 4 Z95.1 HTN (hypertension) I10
--- NOTE | 2022-01-10 14:41 | PM.DCS ---
Discharge Providers Date of Admission: 01/09/22 16:09 Date of Discharge: January 10, 2022 Attending Provider at Admission: Theresa Mccollum MD Attending Provider at Discharge: Theresa Mccollum MD Primary Care Provider: Venancio Mota MD Diagnoses at Discharge Discharge Diagnosis (1) Chest pain: Status: Acute (2) NSTEMI (non-ST elevated myocardial infarction): Status: Acute Reason for Visit Reason for Visit: CHEST PAIN Hospital Course Hospital Course Patient is a 66-year-old lady with comorbidities as listed in H&P from yesterday, presented to the hospital with chief complaints of chest pain. Baseline troponin was noted to be elevated at 111, however negative delta of 2 and 6-hour thereafter. No acute ST-T wave changes were noted on EKG. Cardiology consult was obtained. Features not consistent with STEMI. A stress test has been recommended which after discussion with the patient she would prefer to complete as outpatient. The same has been arranged for Wednesday, January 12, 2022. Overall clinical picture appears more consistent with worsening anginal type chest pain. Ranexa has been increased in the interim from 500 mg twice daily to 1000 mg in the morning and 500 in the evening. He has a history of orthostatic hypotension therefore careful up titration of Ranexa is being done at this time. Follow-up with cardiology as outpatient after results of stress test are available. 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 echo lmt w/w contras [id number] Urgent Ultrasound 01/09/22 14:32 Completed Pending at discharge Category Date Time Status Platelet Count Q2D Lab 01/11/22 04:00 Ordered Platelet Count Q2D Lab 01/13/22 04:00 Ordered Radiology Impressions Chest X-Ray 01/09/22 14:00 IMPRESSION: No acute chest abnormality. Laboratory Results WBC 6.5 10^3/uL (4.0-10.0) 01/10/22 03:55 RBC 3.43 10^6/uL (4.1-5.3) L 01/10/22 03:55 Hgb 10.1 g/dL (11.5-15.3) L 01/10/22 03:55 Hct 33.0 % (37.0-47.0) L 01/10/22 03:55 MCV 96.2 fl (81-99) 01/10/22 03:55 MCH 29.4 pg (28.0-34.0) 01/10/22 03:55 MCHC 30.6 g/dL (30.0-36.0) 01/10/22 03:55 RDW 13.9 % (12.1-15.1) 01/10/22 03:55 Plt Count 299 10^3/cmm (130-400) 01/10/22 03:55 MPV 9.6 fL (7.4-10.4) 01/10/22 03:55 Neut % (Auto) 42.6 % 01/10/22 03:55 Lymph % (Auto) 42.3 % 01/10/22 03:55 [place] % (Auto) 10.2 % 01/10/22 03:55 Eos % (Auto) 3.7 % 01/10/22 03:55 Baso % (Auto) 0.9 % 01/10/22 03:55 Neut # (Auto) 2.75 10^3/uL (1.8-7.7) 01/10/22 03:55 Lymph # (Auto) 2.7 10^3/uL (0.8-4.8) 01/10/22 03:55 [place] # (Auto) 0.7 10^3/uL (0.2-0.9) 01/10/22 03:55 Eos # (Auto) 0.2 10^3/uL (0.0-0.8) 01/10/22 03:55 Baso # (Auto) 0.1 10^3/uL (0.0-0.1) 01/10/22 03:55 Nucleated RBC % (auto) 0 % 01/10/22 03:55 Nucleated RBCs # 0.0 /100WBC 01/10/22 03:55 PT 14.30 SECONDS (12.1-14.9) 01/09/22 16:06 INR 1.07 (0.8-1.2) 01/09/22 16:06 APTT 40.9 SECONDS (23.9-36.7) H D 01/10/22 03:55 Sodium 137 mmol/L (136-145) 01/10/22 03:55 Potassium 4.1 mmol/L (3.5-5.1) 01/10/22 03:55 Chloride 104 mmol/L (98-107) 01/10/22 03:55 Carbon Dioxide 23 mmol/L (22-29) 01/10/22 03:55 Anion Gap 14.1 (5-19) 01/10/22 03:55 BUN 13 mg/dL (8-23) 01/10/22 03:55 Creatinine 0.7 mg/dL (0.5-0.9) 01/10/22 03:55 GFR Calculation 83.5 mL/min (90-130) L 01/10/22 03:55 Glucose 84 mg/dL (65-115) 01/10/22 03:55 Calculated Osmolality 283 mOsm/kg (285-295) L 01/10/22 03:55 Calcium 9.0 mg/dL (8.5-10.5) 01/10/22 03:55 Total Bilirubin 0.2 mg/dL (0.15-1.2) 01/10/22 03:55 AST 14 U/L (0-32) 01/10/22 03:55 ALT 7 U/L (0-33) 01/10/22 03:55 Alkaline Phosphatase 87 IU/L (35-105) 01/10/22 03:55 Troponin T Baseline 111 ng/L (0-10) H* 01/09/22 14:40 Troponin T 120 Minute 98.65 ng/L (0-10) H 01/09/22 16:05 Delta Troponin T -12.35 ABS# (0-10) L 01/09/22 16:05 Troponin T Hi Sens 6Hr 96.53 ng/L (0-10) H 01/09/22 20:17 Troponin T Hi Sens 6Hr Delta -14.47 ng/L (0-12) L 01/09/22 20:17 Total Protein 6.4 g/dL (6.6-8.7) L 01/10/22 03:55 Albumin 3.6 g/dL (3.5-5.2) 02/09/22 03:55 Globulin 2.8 g/dL (1.3-4.6) 01/10/22 03:55 Vitals Last Vital Signs Temp 98.2 F 01/09/22 15:49 Pulse 68 01/10/22 12:00 Resp 18 01/10/22 10:41 BP 149/84 01/10/22 08:00 Pulse Ox 95 01/10/22 12:00 Discharge Plan Discharge Patient Disposition: Home Condition: Stable Prescriptions: Continued acetaminophen [Tylenol Arthritis Pain] 650 mg tablet extended release 1,300 mg PO Q8H PRN (Reason: Pain) 0RF omeprazole 20 mg capsule,delayed release(DR/EC) 20 mg PO BID 0RF furosemide [Lasix] 40 mg tablet 40 mg PO QAM 0RF multivitamin [Daily Multi-Vitamin] Tablet 1 tab PO QAM 0RF ascorbate calcium (vitamin C) 500 mg tablet 1,000 mg PO QAM 0RF magnesium 250 mg tablet 250 mg PO QAM 0RF cholecalciferol (vitamin D3) 50 mcg (2,000 unit) tablet 2,000 unit PO QAM 0RF aspirin [Adult Aspirin Regimen] 81 mg tablet,delayed release (DR/EC) 81 mg PO QAM 0RF baclofen 10 mg tablet 10 mg PO TID 0RF nitroglycerin 0.4 mg tablet, sublingual 0.4 mg sublingual Q5M PRN (Reason: chest pain) Qty: 60 3RF Rx Instructions: do not exceed 3 doses per episode fluticasone propion-salmeterol [Wixela Inhub] 100-50 mcg/dose Blister With Device 1 puff INHALATION BID 0RF ipratropium-albuterol 0.5 mg-3 mg(2.5 mg base)/3 mL solution for nebulization 3 ml INHALATION TID PRN (Reason: Shortness Of Breath) 0RF potassium chloride 20 mEq tablet,ER particles/crystals 20 meq PO QAM 0RF montelukast 10 mg tablet 10 mg PO QAM 0RF lovastatin 20 mg tablet 20 mg PO BEDTIME 0RF fluticasone propionate 50 mcg/actuation spray,suspension 2 spray INTRANASAL BEDTIME 0RF omega-3 fatty acids Capsule 1,000 mg PO DAILY@17 0RF Atrovent HFA 17 mcg/actuation HFA aerosol inhaler 2 puff INHALATION Q6H PRN (Reason: Shortness Of Breath) 0RF clopidogrel [Plavix] 75 mg tablet 75 mg PO QAM 0RF alprazolam [Xanax] 1 mg tablet 1 mg PO TID PRN (Reason: Anxiety) Qty: 90 5RF Colace 100 mg Capsule 100 mg PO BID 0RF metoprolol tartrate 25 mg tablet 12.5 mg PO BID 0RF Voltaren 1 % Gel 2 g TOPICAL QID PRN (Reason: Pain) 0RF Rx Instructions: apply to single elbow, wrist or hand; for hand includes palm/fingers/back of hand lidocaine 5 % Ointment See Rx Instructions .ROUTE .COMPLEX 0RF Rx Instructions: as directed prn melatonin 10 mg Tablet 10 mg PO BEDTIME PRN (Reason: Sleep) 0RF Parnate 10 mg tablet 30 mg PO BID@10,17 0RF Changed Ranexa 500 mg tablet extended release 12 hr See Rx Instructions .ROUTE .COMPLEX Qty: 30 3RF Rx Instructions: ranolazine to 1000 mg in the morning to 500 mg in the evening Discharge Orders: Discharge Order (Routine); Ordered 01/10/22 Ordered By: Mirlande Nowak Referrals: Jaiden Feliciano M.D [Physician] - 2 weeks Venancio Mota MD [Primary Care Provider] - Discharge Diet: Cardiac Discharge Activity: Increase activity as tolerated Patient Instructions: Opioid Safety Activity Restrictions/Additional Instructions: Stress test on 01/12/21 - ARRIVE AT THE HOSPITAL AT 9AM- EXPECT TO BE HERE 3-4 HOURS. Follow-up with Dr. Feliciano in 2 weeks. Patient has been advised in case of worsening of chest pain she can return to ER Discharge Attestations Time Spent in Discharge Care*: greater than 30 min Quality Metrics Clinical Quality Measures [ No reported AMI, CVA or VTE this stay] Coding Level of Care Code Acute g FW DC note Diagnoses Chest pain R07.9 NSTEMI (non-ST elevated myocardial infarction) I21.4
== END 2022-01-10 12:40 | disposition home or self-care (01) | DRG 303 ==
LOC: ER 16:44 → ER IP 20:42
PROVIDERS: Admitting Provider Student in an Organized Health Care Education/Training Program; Emergency Provider Emergency Medicine; PCP Family Medicine; Visit Provider Student in an Organized Health Care Education/Training Program
DX: I25.119 Atherosclerotic heart disease of native coronary artery with unspecified angina pectoris (principal); Z95.5 Presence of coronary angioplasty implant and graft; Z95.1 Presence of aortocoronary bypass graft; J44.9 Chronic obstructive pulmonary disease, unspecified; I10 Essential (primary) hypertension; E78.00 Pure hypercholesterolemia, unspecified; F33.42 Major depressive disorder, recurrent, in full remission; I25.2 Old myocardial infarction; Z87.891 Personal history of nicotine dependence; Z96.611 Presence of right artificial shoulder joint; Z90.49 Acquired absence of other specified parts of digestive tract; Z79.82 Long term (current) use of aspirin; Z79.02 Long term (current) use of antithrombotics/antiplatelets
CPT/HCPCS: 71045; 80048; 80053; 84484; 85025; 85610; 85730; 93005; 96365; 96375; 99285; C8924; J1644; J2270; Q9956

== ENCOUNTER 2022-01-15 06:56 | Outpatient (CLI) | payer MEDICARE, SELFPAY ==
[2022-01-15 07:10] VITALS: BMI 28.3
--- NOTE | 2022-01-15 07:12 | ECG_ITS ---
[facility] Test Date: 2022-01-15 Pat Name: Rebecca Coombs Department: Room: Gender: Female Tool Engineer: Adalgisa Champion : 1955 Requested By: Theresa Mccollum Order Number: [id number] Alicia MD: Jaiden Feliciano M.D. Interpretive Statements NAME OF STUDY: LEXISCAN SESTAMIBI STRESS TEST INDICATION: [Angina, ] Procedure: At the baseline, the blood pressure was 119/73 mmHg with a heart rate of 62 bpm. The electrocardiogram showed normal sinus rhythm, normal axis with normal ST and T's. The Lexiscan was infused over a period of 20 seconds. A total of 0.4 mg of Lexiscan was infused. The stress phase was continued for a total of 5 minutes. Heart rate was at the end of stress phase was 69 bpm and a blood pressure of 92/60 mmHg. The EKG at the peak infusion revealed since normal sinus rhythm with no significant ST-T wave changes. Sestamibi was injected 20 seconds after the Lexiscan infusion. Blood pressure at the end of recovery phase was 99/62 mmHg with a heart rate of 69 bpm. Conclusion: 1. Normal EKG response to Lexiscan infusion 2. No Lexiscan induced chest pain or cardiac arrhythmia. 3. Normal blood pressure and heart rate response. 4. Sestamibi/sestamibi perfusion scan pending; see separate report. Electronically Signed On 01-24-2022 17:37:58 DOCUMENT CLERK by Jaiden Feliciano M.D. [email or web address]
--- NOTE | 2022-01-15 07:12 | NMCV_ITS ---
NM siomara perf SPECT r/s* [id number] Rebecca Coombs Age: 66 Gender: F : 1955 Exam Date: 01/15/2022 08:07 Ordering Phys: Theresa Mccollum MD Technologist: PRIYA Cabrera Exam Location: [facility] Indications: WORSENING ANGINA STRESS TEST [facility] IMAGE PROTOCOL Rest/Stress 1 Lexiscan Day Radiopharmaceutical Dose (mCi) Administration Site Administered by Rest: Tc-99m 10.8 IV PRIYA Ordoñez Sestamibi Stress:Tc-99m 32.7 IV PRIYA Ordoñez Sestamibi Rest: 15-Jan-2022 60 Discovery 630 Stress: 15-Jan-2022 30 Discovery 630 0.4mg Lexiscan. Images obtained in supine and prone position. SPECT RESULTS Technical Quality: Excellent Raw Data Analysis: Normal Image Corrections: No attenuation or motion correction applied Summed Stress Score: 30 Summed Rest Score: 16 Summed Difference Score: 14 PERFUSION FINDINGS There is large area of mostly reversible ischemia noted in the anterior,apical, apical lateral, lateral and inferior hernandes. These represent areas of prior infarcts with significant bonny-infarct ischemia. FUNCTIONAL RESULTS (calculated via Gated SPECT) Stress Image LV EF (%): 48 Stress EDV (mL):132 TID: 1.01 Stress ESV (mL):68 FUNCTIONAL FINDINGS: LV systolic function is mildly reduced with EF of 48% IMPRESSIONS 1. Abnormal myocardial perfusion imaging showing prior infarct with significant bonny-infarct ischemia in all coronary territories. Inferior wall ischemia is almost completely reversible, LCx and LAD are partially reversible 2. LV systolic function is mildly reduced with EF of 48% Jaiden Feliciano MD (Electronically Signed) Final Date: 20 January 2022 10:48 S
[2022-01-15 09:06] VITALS: BP 99/62; PULSE 69
[2022-01-15] MEDS: regadenoson 0.4 Mg/5 ml Syringe IVP (09:07)
== END 2022-01-15 06:57 | disposition home or self-care (01) ==
PROVIDERS: PCP Family Medicine; Visit Provider Student in an Organized Health Care Education/Training Program
DX: I20.0 Unstable angina (principal); R06.02 Shortness of breath
CPT/HCPCS: 78452; 93017; A9500; J2785

== ENCOUNTER → 2022-01-17 13:15 | Outpatient (BNVA) | payer MEDICARE, SELFPAY | PROVIDERS: PCP Family Medicine; Visit Provider Psychiatry & Neurology Psychiatry | DX: F33.42 Major depressive disorder, recurrent, in full remission (principal); F41.0 Panic disorder [episodic paroxysmal anxiety] | CPT/HCPCS: 99214 ==

== ENCOUNTER 2022-01-18 13:40 | Outpatient (CLI) | payer MEDICARE, SELFPAY ==
--- NOTE | 2022-01-18 13:50 | MM_ITS ---
WS: [id number] BILATERAL SCREENING DIGITAL MAMMOGRAM WITH CAD HISTORY: SCREENING COMPARISON: 09/15/2020, 08/05/2019, 04/09/2017 Bilateral CC and MLO views submitted. Computer aided detection analyzed. Breast composition: There are scattered areas of fibroglandular density. No suspicious masses, microc alcifications or architectural distortion. Benign calcifications in each breast. On the RIGHT MLO pro jection just inferior to the nipple is an asymmetry which is similar to the prior study of 04/09/2017. MM/[place] [id number] IMPRESSION: BI-RADS: 2-Benign FOLLOW UP: 1 Year Follow-up
== END 2022-01-18 13:41 | disposition home or self-care (01) ==
PROVIDERS: PCP Family Medicine; Visit Provider Family Medicine
DX: Z12.31 Encounter for screening mammogram for malignant neoplasm of breast (principal)
CPT/HCPCS: 77067

== ENCOUNTER 2022-01-30 11:55 | Outpatient (CLI) | payer MEDICARE, SELFPAY ==
--- NOTE | 2022-01-30 12:22 | CT_ITS ---
WS: [id number] CT HEAD NONCONTRAST HISTORY: TRAUMATIC HEADACHE, PT IN MAIN WR TECHNIQUE: Contiguous axial imaging performed through the brain in 2.5 mm imaging. Bone and soft tiss ue windows. Sagittal and coronal reformats reviewed. All CT scans at [facility] use at least one of these dose optimization techniques: automated exposure control; mA and/or kV adjustment per pa tient size (includes targeted exams where dose is matched to clinical indication); or iterative recon struction. DLP: 943.96 mGy.cm COMPARISON: 01/07/2020 No acute intracranial hemorrhage, midline shift or mass effect. Mild atrophy and mild chronic microvascular ischemic disease. Ventricles: Normal size with no hydrocephalus. No inferior displacement of cerebellar tonsils. Paranasal sinuses: As visualized are clear. Mastoid air cells: Well pneumatized. Calvarium and scalp: Skull is intact with no soft tissue edema or swelling. CT/CT head wo con* [id number] IMPRESSION: 1. No acute intracranial hemorrhage or edema. 2. Mild cerebral atrophy and chronic ischemic disease. 3. No fracture.
== END 2022-01-30 11:56 | disposition home or self-care (01) ==
PROVIDERS: PCP Family Medicine; Visit Provider Electrodiagnostic Medicine
DX: G44.309 Post-traumatic headache, unspecified, not intractable (principal); N94.89 Other specified conditions associated with female genital organs and menstrual cycle; Z87.820 Personal history of traumatic brain injury; I67.82 Cerebral ischemia; G31.9 Degenerative disease of nervous system, unspecified
CPT/HCPCS: 70450

== ENCOUNTER 2022-03-27 10:48 | Outpatient (CLI) | payer MEDICARE, SELFPAY ==
--- NOTE | 2022-03-27 11:15 | USCV_ITS ---
Rebecca Coombs Age: 66 Gender: F : 1955 Exam Date: 03/27/2022 11:44 Ordering Phys: Jaiden Feliciano M.D ([email or web address]) Technologist: Ervin Balderas [place] [facility] [place]: [place] in [place] Risk Factors: Previous Vascular Surgery: RIGHT LEFT BP: 117.0 / 74.00 BP: 126.0/ 74.00 0 0 Waveform Velocity (cm/s) Velocity (cm/s) Waveform Triphasic 140.6 Iliac Prox 127.6 Triphasic Triphasic 142.1 Iliac Mid 112.7 Triphasic Triphasic 161.9 Iliac Distal 142.2 Triphasic Triphasic 92.6 CHAIN MAKER 69.5 Triphasic Triphasic 71.5 SFA Prox 92.4 Triphasic Triphasic 66.8 SFA Mid 66.0 Triphasic Triphasic 87.8 SFA Dist 82.0 Triphasic Biphasic 69.1 POP 72.9 Biphasic Biphasic 66.8 THORACIC MEDICINE PHYSICIAN 93.2 Biphasic Biphasic 72.2 DPA 68.0 Biphasic 1.0 LAVERN 1.0 FINDINGS Normal resting ABIs bilaterally Near normal arterial Doppler waveforms bilaterally Normal Doppler velocities bilaterally CONCLUSIONS No evidence of any significant arterial obstruction, based on the above findings. Dr Olga Garza MD [facility] (Electronically Signed) Final Date: 01 Apr 2022 21:09 S
== END 2022-03-27 10:49 | disposition home or self-care (01) ==
LOC: RAD 10:50
PROVIDERS: PCP Family Medicine; Visit Provider Internal Medicine
DX: M79.604 Pain in right leg (principal); M79.605 Pain in left leg
CPT/HCPCS: 93925

== ENCOUNTER → 2022-04-09 10:39 | Outpatient (BNVA) | payer MEDICARE, SELFPAY | PROVIDERS: PCP Family Medicine; Referring Provider Family Medicine; Visit Provider Otolaryngology | DX: H93.13 Tinnitus, bilateral (principal); J30.9 Allergic rhinitis, unspecified | CPT/HCPCS: 99204 ==

== ENCOUNTER → 2022-04-11 14:43 | Outpatient (BNVA) | payer MEDICARE, SELFPAY | PROVIDERS: PCP Family Medicine; Visit Provider Psychiatry & Neurology Psychiatry | DX: F33.42 Major depressive disorder, recurrent, in full remission (principal); F41.0 Panic disorder [episodic paroxysmal anxiety] | CPT/HCPCS: 99214 ==

== ENCOUNTER → 2022-05-08 12:07 | Outpatient (BNVA) | payer MEDICARE, SELFPAY | PROVIDERS: PCP Family Medicine; Visit Provider Internal Medicine Cardiovascular Disease | DX: R00.2 Palpitations (principal); I25.10 Atherosclerotic heart disease of native coronary artery without angina pectoris; I71.4 Abdominal aortic aneurysm, without rupture; Z79.01 Long term (current) use of anticoagulants; I25.2 Old myocardial infarction; E78.00 Pure hypercholesterolemia, unspecified; Z95.1 Presence of aortocoronary bypass graft; I10 Essential (primary) hypertension; Z87.891 Personal history of nicotine dependence; I73.9 Peripheral vascular disease, unspecified; R00.1 Bradycardia, unspecified | CPT/HCPCS: 93229; 99213; 99214 ==

== ENCOUNTER 2022-05-22 15:58 | Emergency (ER) | payer MEDICARE, SELFPAY ==
[2022-05-22 16:10] VITALS: BP 119/70; PULSE 73; RESP 16; TEMP 36.6; O2SAT 95; BMI 27.6
--- NOTE | 2022-05-22 17:38 | ECG_ITS ---
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 Measurements Intervals [place] Rate: 72 P: 72 UT: 183 QRS: 45 QRSD: 89 T: 102 QT: 384 QTc: 423 Interpretive Statements SINUS RHYTHM MODERATE ST DEPRESSION [0.05+ mV ST DEPRESSION] INTERPRETATION BASED ON A DEFAULT AGE OF 40 YEARS Compared to ECG 01/09/2022 16:04:02 No significant changes Electronically Signed On 05-22-2022 22:29:33 CDT by Olga Garza M.D. [email or web address].[email or web address] Mobile [employer]/store/[id number]
--- NOTE | 2022-05-22 19:38 | ECG_ITS ---
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 Measurements Intervals [place] Rate: 62 P: 62 [place]: 198 QRS: 35 QRSD: 100 T: 71 QT: 434 QTc: 444 Interpretive Statements SINUS RHYTHM WITH OCCASIONAL VENTRICULAR PREMATURE COMPLEXES Compared to ECG 05/22/2022 16:21:03 Ventricular premature complex(es) now present ST (T wave) deviation no longer present Electronically Signed On 05-22-2022 22:38:26 CDT by Olga Garza M.D. [id number]
--- NOTE | 2022-05-22 19:43 | XRR_ITS ---
PROCEDURE INFORMATION: Exam: XR Chest Exam date and time: 05/22/2022 8:05 PM Age: 67 years old Clinical indication: Chest wall pain; Additional info: Cp TECHNIQUE: Imaging protocol: Radiologic exam of the chest. Views: 1 view. COMPARISON: CR XR chest 1V portable [id number] 01/09/2022 3:54 PM FINDINGS: Lungs: Emphysematous changes. Pleural spaces: Unremarkable. No pleural effusion. No pneumothorax. Heart/Mediastinum: Unremarkable. No cardiomegaly. Bones/joints: Sternotomy wires. XR/XR chest 1V portable [id number] IMPRESSION: 1. Negative for infiltrate. 2. Emphysematous changes.
[2022-05-22 19:44] LABS: Basophils # 0.1 10^3/uL (0.0-0.1); Basophils % 0.8 %; Eosinophils # 0.2 10^3/uL (0.0-0.8); Eosinophils % 2.7 %; Hematocrit 33.1 % (37.0-47.0); Hemoglobin 10.7 g/dL (11.5-15.3); Lymphocytes # 2.3 10^3/uL (0.8-4.8); Lymphocytes % 29.9 %; Mean Corpuscular HGB Conc 32.3 g/dL (30.0-36.0); Mean Corpuscular Hemoglobin 30.1 pg (28.0-34.0); Mean Platelet Volume 10.4 fL (7.4-10.4); Monocytes # 0.8 10^3/uL (0.2-0.9); Monocytes % 10.1 %; Neutrophils # 4.24 10^3/uL (1.8-7.7); Neutrophils % 56.4 %; Nucleated Red Blood Cells % 0 %; Platelet Count 250 10^3/cmm (130-400); Red Blood Count 3.56 10^6/uL (4.1-5.3); Red Cell Distribution Width 13.1 % (12.1-15.1); White Blood Count 7.5 10^3/uL (4.0-10.0)
--- NOTE | 2022-05-22 19:48 | ED_ITS ---
HPI - Chest Pain General: Chief Complaint: Chest Pain Stated Complaint: chest pain Time Seen by Provider: 05/22/22 19:35 Source: patient Mode of arrival: ambulatory Limitations: no limitations History of Present Illness: 67-year-old female who has extensive history of cardiac disease. Patient did have a recent cardiac cath in January showed no acute findings. She also just finished wearing a Holter monitor and turned it in she states this week. States states she felt like she was skipping beats with a heart rate and started having some anxiety having some chest pain. States that 3 she states since then its resolved but she went to get her chart checked out. She denies any shortness of breath denies any fever. Associated symptoms: Reports palpitations; Deny abdominal pain, dyspnea, fever(s), nausea or vomiting Review of Systems Const: Denies: fever(s), chills, body aches or change in appetite Eyes: Denies: blurry vision or eye discomfort ENMT: Denies: throat pain or dental pain Card: Reports: chest pain, palpitations and irregular heart rhythm Resp: Denies: dyspnea GI: Denies: abdominal pain, nausea, vomiting or diarrhea : Denies: dysuria Musc: Denies: neck pain or back pain Skin/Breast: Denies: rash Neuro: Denies: headache(s) Psych: Denies: depression Jovany/Lymph: Denies: easy bruising All/Imm: Denies: urticaria PFSH ED PFSH: Medical History CAD (coronary artery disease) COPD (chronic obstructive pulmonary disease) HTN (hypertension) Hypercholesterolemia Ischemic bowel disease Major depressive disorder, recurrent, in full remission Myocardial infarction Palpitations Panic disorder Psychiatric care Tobacco abuse Warfarin anticoagulation Surgical History H/O cardiac catheterization H/O hysterectomy with oophorectomy H/O rotator cuff surgery History of right shoulder replacement Hx of appendectomy S/p bilateral carpal tunnel release S/P CABG x 4 S/P right hemicolectomy 01/01/2020 Status post colonoscopy Status post laparoscopic cholecystectomy 01/01/2020 Social History Smoking and tobacco status: former smoker (last month) Quit status (tobacco): has quit using tobacco Second hand smoke exposure: No Smoking risk assessment/counseling performed?: No Reason smoking risk assessment not done: other Alcohol intake: never Marital status: Current occupational status: retired Physical Exam Const: COMMON NORMALS: no acute distress, patient oriented x3 and healthy appearing HENMT: COMMON NORMALS: normocephalic and atraumatic HEAD & SCALP: normocephalic and atraumatic Eye: COMMON NORMALS: Equal, round and reactive pupils present and EOMs intact bilaterally PUPIL: Yes Equal, round and reactive pupils present Neck/C-Spine: COMMON NORMALS: full ROM and supple Chest: COMMONS NORMALS: normal inspection of the chest and normal palpation of entire chest wall Resp: COMMON NORMALS: normal respiratory effort, No retractions, No use of accessory muscles and clear to auscultation bilaterally AUSCULTATION: clear to auscultation bilaterally Cardio: COMMON NORMALS: regular rate, regular rhythm and No murmurs present (Cardio) RATE: regular rate RHYTHM: regular rhythm GI: COMMON NORMALS: Normal to inspection, nondistended, normoactive bowel sounds present, Soft to palpation, non-tender and no masses PALPATION: Yes Soft to palpation Extremity: COMMON NORMALS: normal to inspection and full ROM Neuro: COMMON NORMALS: patient oriented x3, moves all extremities and no focal motor deficits Psych: COMMON NORMALS: mental status grossly normal, Normal thought process present and cooperative THOUGHT PROCESS: Normal thought process present Skin: COMMON NORMALS: no rashes or lesions noted and no wounds GENERAL SKIN EXAM: no rashes or lesions noted Course Vital Signs: Vital signs: Vital Signs Temperature 97.8 F 05/22/22 16:10 Pulse Rate 68 05/22/22 20:16 Respiratory Rate 17 05/22/22 20:16 Blood Pressure 114/75 05/22/22 20:16 Pulse Oximetry 97 05/22/22 20:16 MDM - Chest Pain Medical Decision Making Patient presents here with some palpitations along with chest pains atypical in nature. She is been well-appearing here heart rate is been normal EKGs and troponins are normal as well. She just turned her heart monitor and she has follow-up with Dr. Daniel in a few weeks she is to follow-up as scheduled return if worsening she understands agrees to plan. Lab Data : 05/22/22 19:00 05/22/22 19:00 Radiology Impressions Chest X-Ray 05/22/22 19:43 IMPRESSION: 1. Negative for infiltrate. 2. Emphysematous changes. Laboratory Results WBC 7.5 10^3/uL (4.0-10.0) 05/22/22 19:00 RBC 3.56 10^6/uL (4.1-5.3) L 05/22/22 19:00 Hgb 10.7 g/dL (11.5-15.3) L 05/22/22 19:00 Hct 33.1 % (37.0-47.0) L 05/22/22 19:00 MCV 93.0 fl (81-99) 05/22/22 19:00 MCH 30.1 pg (28.0-34.0) 05/22/22 19:00 MCHC 32.3 g/dL (30.0-36.0) 05/22/22 19:00 RDW 13.1 % (12.1-15.1) 05/22/22 19:00 Plt Count 250 10^3/cmm (130-400) 05/22/22 19:00 MPV 10.4 fL (7.4-10.4) 05/22/22 19:00 Neut % (Auto) 56.4 % 05/22/22 19:00 Lymph % (Auto) 29.9 % 05/22/22 19:00 [place] % (Auto) 10.1 % 05/22/22 19:00 Eos % (Auto) 2.7 % 05/22/22 19:00 Baso % (Auto) 0.8 % 05/22/22 19:00 Neut # (Auto) 4.24 10^3/uL (1.8-7.7) 05/22/22 19:00 Lymph # (Auto) 2.3 10^3/uL (0.8-4.8) 05/22/22 19:00 [place] # (Auto) 0.8 10^3/uL (0.2-0.9) 05/22/22 19:00 Eos # (Auto) 0.2 10^3/uL (0.0-0.8) 05/22/22 19:00 Baso # (Auto) 0.1 10^3/uL (0.0-0.1) 05/22/22 19:00 Nucleated RBC % (auto) 0 % 05/22/22 19:00 Nucleated RBCs # 0.0 /100WBC 05/22/22 19:00 Sodium 138 mmol/L (136-145) 05/22/22 19:00 Potassium 4.0 mmol/L (3.5-5.1) 05/22/22 19:00 Chloride 103 mmol/L (98-107) 05/22/22 19:00 Carbon Dioxide 25 mmol/L (22-29) 05/22/22 19:00 Anion Gap 14.0 (5-19) 05/22/22 19:00 BUN 13 mg/dL (8-23) 05/22/22 19:00 Creatinine 0.9 mg/dL (0.5-0.9) 05/22/22 19:00 GFR Calculation 62.3 mL/min (90-130) L 05/22/22 19:00 Glucose 83 mg/dL (65-115) 05/22/22 19:00 Calculated Osmolality 285 mOsm/kg (285-295) 05/22/22 19:00 Calcium 9.2 mg/dL (8.5-10.5) 05/22/22 19:00 Total Bilirubin 0.3 mg/dL (0.15-1.2) 05/22/22 19:00 AST 19 U/L (0-32) 05/22/22 19:00 ALT 14 U/L (0-33) 05/22/22 19:00 Alkaline Phosphatase 74 IU/L (35-105) 05/22/22 19:00 Troponin T Baseline 12 ng/L (0-10) H 05/22/22 19:00 Troponin T 120 Minute 10.96 ng/L (0-10) H 05/22/22 21:00 Delta Troponin T -1.04 ABS# (0-10) L 05/22/22 21:00 NT-Pro-B Natriuret Pep 1317 pg/mL (0-125) H 05/22/22 19:00 Total Protein 7.3 g/dL (6.6-8.7) 05/22/22 19:00 Albumin 4.0 g/dL (3.5-5.2) 05/22/22 19:00 Globulin 3.3 g/dL (1.3-4.6) 05/22/22 19:00 EKG Data EKG 2: I personally reviewed and interpreted this EKG as follows: EKG interpretation date: 05/22/22 EKG interpretation time: 20:01 Interpretation: nsr hr [address] or t wave abnormalities qrs 100 qtc 440 Discharge Plan Discharge Patient Disposition: Home Clinical Impression: Chest pain Qualifiers: Chest pain type: unspecified Qualified Code(s): R07.9 - Chest pain, unspecified Condition: Stable Prescriptions: No Action acetaminophen [Tylenol Arthritis Pain] 650 mg tablet extended release 1,300 mg PO Q8H PRN (Reason: Pain) 0RF omeprazole 20 mg capsule,delayed release(DR/EC) 20 mg PO BID 0RF furosemide [Lasix] 40 mg tablet 40 mg PO QAM 0RF multivitamin [Daily Multi-Vitamin] Tablet 1 tab PO QAM 0RF ascorbate calcium (vitamin C) 500 mg tablet 1,000 mg PO QAM 0RF magnesium 250 mg tablet 250 mg PO QAM 0RF cholecalciferol (vitamin D3) 50 mcg (2,000 unit) tablet 2,000 unit PO QAM 0RF aspirin [Adult Aspirin Regimen] 81 mg tablet,delayed release (DR/EC) 81 mg PO QAM 0RF baclofen 10 mg tablet 10 mg PO TID 0RF nitroglycerin 0.4 mg tablet, sublingual 0.4 mg sublingual Q5M PRN (Reason: chest pain) Qty: 60 3RF Rx Instructions: do not exceed 3 doses per episode Parnate 10 mg tablet 30 mg PO BID@10,17 Qty: 180 5RF alprazolam [Xanax] 1 mg tablet 1 mg PO TID PRN (Reason: Anxiety) Qty: 90 5RF ranolazine [Ranexa] 1,000 mg tablet extended release 12 hr 1,000 mg PO BID Qty: 180 3RF fluticasone propion-salmeterol [Wixela Inhub] 100-50 mcg/dose Blister With Device 1 puff INHALATION BID 0RF ipratropium-albuterol 0.5 mg-3 mg(2.5 mg base)/3 mL solution for nebulization 3 ml INHALATION TID PRN (Reason: Shortness Of Breath) 0RF potassium chloride 20 mEq tablet,ER particles/crystals 20 meq PO QAM 0RF montelukast 10 mg tablet 10 mg PO QAM 0RF lovastatin 20 mg tablet 20 mg PO BEDTIME 0RF omega-3 fatty acids Capsule 1,000 mg PO DAILY@17 0RF Atrovent HFA 17 mcg/actuation HFA aerosol inhaler 2 puff INHALATION Q6H PRN (Reason: Shortness Of Breath) 0RF clopidogrel [Plavix] 75 mg tablet 75 mg PO QAM 0RF fluticasone propionate 50 mcg/actuation spray,suspension 2 spray INTRANASAL BID 0RF metoprolol tartrate 25 mg tablet 12.5 mg PO BID 0RF Voltaren 1 % Gel 2 g TOPICAL QID PRN (Reason: Pain) 0RF Rx Instructions: apply to single elbow, wrist or hand; for hand includes palm/fingers/back of hand lidocaine 5 % Ointment See Rx Instructions .ROUTE .COMPLEX 0RF Rx Instructions: as directed prn melatonin 10 mg Tablet 10 mg PO BEDTIME PRN (Reason: Sleep) 0RF Colace 100 mg capsule 100 mg PO BID PRN0RF Discharge Orders: Discharge ED (Routine); Ordered 05/22/22 Ordered By: Rey Tanner Referrals: Venancio Mota MD [Primary Care Provider] - 1-3 days Discharge Diet: Advance as tolerated Discharge Activity: Resume usual activity Patient Instructions: Chest Pain (ED) Coding Level of Care Code ED Cutter Head Sharpener for Chg Fwd Exam Comprehensive
[2022-05-22 20:09] LABS: Alanine Aminotransferase 14 U/L (0-33); Alkaline Phosphatase 74 IU/L (35-105); Aspartate Amino Transferase 19 U/L (0-32); Blood Urea Nitrogen 13 mg/dL (8-23); Calcium 9.2 mg/dL (8.5-10.5); Carbon Dioxide 25 mmol/L (22-29); Chloride 103 mmol/L (98-107); Globulin 3.3 g/dL (1.3-4.6); Glomerular Filtration Rate 62.3 mL/min (90-130); Glucose 83 mg/dL (65-115); Osmolality Calculated 285 mOsm/kg (285-295); Sodium 138 mmol/L (136-145); Total Bilirubin 0.3 mg/dL (0.15-1.2); Total Protein 7.3 g/dL (6.6-8.7)
[2022-05-22 20:16] VITALS: BP 114/75; PULSE 68; RESP 17; O2SAT 97
[2022-05-22 20:26] LABS: Troponin(5th) Baseline 12 ng/L (0-10)
[2022-05-22 20:40] LABS: NT Pro B Type Natriuretic Pept 1317 pg/mL (0-125)
[2022-05-22 21:33] LABS: Troponin 5 2HR 10.96 ng/L (0-10)
[2022-05-22 21:34] LABS: Troponin 5 2HR Delta -1.04 ABS# (0-10)
[2022-05-22 21:49] VITALS: BP 125/63; PULSE 65; RESP 20; O2SAT 97
--- NOTE | 2022-05-22 23:38 | ECG_ITS ---
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 Measurements Intervals [place] Rate: 61 P: 40 CO: 193 QRS: 20 QRSD: 97 T: 64 QT: 432 QTc: 436 Interpretive Statements SINUS RHYTHM Nonspecific ST changes Compared to ECG 05/22/2022 20:00:46 Ventricular premature complex(es) no longer present Electronically Signed On 05-22-2022 22:38:58 CDT by Olga Garza M.D. [email or web address] medical [email or web address] health.[employer]/store/[id number]
== END 2022-05-22 21:50 | disposition home or self-care (01) ==
PROVIDERS: Nurse Practitioner Family; Emergency Provider Emergency Medicine; PCP Family Medicine
DX: R07.9 Chest pain, unspecified (principal); Z79.82 Long term (current) use of aspirin; Z79.02 Long term (current) use of antithrombotics/antiplatelets; I25.10 Atherosclerotic heart disease of native coronary artery without angina pectoris; J44.9 Chronic obstructive pulmonary disease, unspecified; I10 Essential (primary) hypertension; I25.2 Old myocardial infarction; Z95.1 Presence of aortocoronary bypass graft; Z87.891 Personal history of nicotine dependence
CPT/HCPCS: 71045; 80053; 83880; 84484; 85025; 93005; 99284

== ENCOUNTER → 2022-07-02 10:22 | Outpatient (BNVA) | payer MEDICARE, SELFPAY | PROVIDERS: PCP Family Medicine; Visit Provider Family Medicine | DX: I25.10 Atherosclerotic heart disease of native coronary artery without angina pectoris (principal); J44.9 Chronic obstructive pulmonary disease, unspecified; I10 Essential (primary) hypertension; I73.9 Peripheral vascular disease, unspecified; Z79.01 Long term (current) use of anticoagulants; I21.9 Acute myocardial infarction, unspecified | CPT/HCPCS: 80053; 80061; 84443; 85025 ==

== ENCOUNTER → 2022-07-05 12:13 | Outpatient (BNVA) | payer MEDICARE, SELFPAY | PROVIDERS: PCP Family Medicine; Visit Provider Family Medicine | DX: N39.0 Urinary tract infection, site not specified (principal); I25.10 Atherosclerotic heart disease of native coronary artery without angina pectoris; E78.00 Pure hypercholesterolemia, unspecified; I10 Essential (primary) hypertension; F33.42 Major depressive disorder, recurrent, in full remission | CPT/HCPCS: 81000; 87086 ==

== ENCOUNTER → 2022-07-26 13:36 | Outpatient (BNVA) | payer MEDICARE, SELFPAY | PROVIDERS: PCP Family Medicine; Visit Provider Student in an Organized Health Care Education/Training Program | DX: T84.038D Mechanical loosening of other internal prosthetic joint, subsequent encounter (principal); Z96.619 Presence of unspecified artificial shoulder joint | CPT/HCPCS: 36415; 73030; 85025; 85651; 86140; 99204 ==

== ENCOUNTER → 2022-07-30 15:17 | Outpatient (BNVA) | payer MEDICARE, SELFPAY | PROVIDERS: PCP Family Medicine; Visit Provider Obstetrics & Gynecology | DX: N81.10 Cystocele, unspecified (principal) | CPT/HCPCS: 81000 ==

== ENCOUNTER → 2022-08-01 13:41 | Outpatient (BNVA) | payer MEDICARE, SELFPAY | PROVIDERS: PCP Family Medicine; Visit Provider Family Medicine | DX: Z20.822 Contact with and (suspected) exposure to COVID-19 (principal); J06.9 Acute upper respiratory infection, unspecified | CPT/HCPCS: 87426 ==

== ENCOUNTER 2022-09-08 11:50 | Inpatient (IN) | payer MEDICARE, SELFPAY ==
[2022-09-08] VITALS (117 sets, daily range): BP systolic 65–120; BP diastolic 37–91; PULSE 68–91; RESP 10–36; TEMP 36.2–36.7; O2SAT 86–99; BMI 28.4
--- NOTE | 2022-09-08 11:56 | ECG_ITS ---
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 Measurements Intervals [place] Rate: 79 P: 56 ND: 185 QRS: 15 QRSD: 92 T: 74 QT: 387 QTc: 445 Interpretive Statements SINUS RHYTHM POSSIBLE LEFT ATRIAL ENLARGEMENT [-0.1mV P-WAVE IN V1/V2] Compared to ECG 05/22/2022 20:04:02 ST (T wave) deviation no longer present Electronically Signed On 09-08-2022 19:32:40 CDT by Olga Garza M.D. [email or web address] Biost. [facility].Vinylmint/store/OM/[id number]
--- NOTE | 2022-09-08 11:56 | XRR_ITS ---
PROCEDURE INFORMATION: Exam: XR Chest Exam date and time: 09/08/2022 12:02 PM Age: 67 years old Clinical indication: Cough and dyspnea; Prior surgery; Surgery date: 6+ months; Additional info: Dyspnea/cough TECHNIQUE: Imaging protocol: Radiologic exam of the chest. Views: 1 view. COMPARISON: CR (CHEST, ) 05/22/2022 8:05 PM FINDINGS: Lungs: There are patchy infiltrates in the mid to lower left lung field consistent with pneumonia. Pleural spaces: Left costophrenic angle is obscured and a pleural effusion cannot be adequately assessed for. Heart/Mediastinum: Unremarkable. No cardiomegaly. Bones/joints: There are posterior sternotomy changes and postoperative changes overlying the mediastinum. XR/XR chest 1V portable [id number] IMPRESSION: There are patchy infiltrates in the mid to lower left lung field consistent with pneumonia.
[2022-09-08 12:13] LABS: Basophils # 0.1 10^3/uL (0.0-0.1); Basophils % 0.4 %; Eosinophils # 0.1 10^3/uL (0.0-0.8); Eosinophils % 0.7 %; Hematocrit 38.4 % (37.0-47.0); Hemoglobin 12.1 g/dL (11.5-15.3); Lymphocytes % 8.6 %; Mean Corpuscular HGB Conc 31.5 g/dL (30.0-36.0); Mean Corpuscular Hemoglobin 30.6 pg (28.0-34.0); Mean Platelet Volume 9.8 fL (7.4-10.4); Monocytes # 1.3 10^3/uL (0.2-0.9); Neutrophils # 9.28 10^3/uL (1.8-7.7); Neutrophils % 78.8 %; Nucleated Red Blood Cells % 0 %; Platelet Count 340 10^3/cmm (130-400); Red Blood Count 3.96 10^6/uL (4.1-5.3); Red Cell Distribution Width 12.4 % (12.1-15.1); White Blood Count 11.8 10^3/uL (4.0-10.0)
[2022-09-08 12:27] LABS: INR 0.97 (0.8-1.2); Partial Thromboplastin Time 24.2 SECONDS (23.9-36.7)
[2022-09-08] MEDS: piperacillin-tazobactam 3.375 GM in sodium chloride 0.9% (plus) 50 ML IV ×2 (12:30→17:46)
--- NOTE | 2022-09-08 12:32 | W.ED.SOB ---
HPI - SOB/Dyspnea General: Chief Complaint: Shortness of Breath/Dyspnea Stated Complaint: POSS PNEUMONIA; COUGHING UP BLOOD Time Seen by Provider: 09/08/22 11:55 Source: patient Mode of arrival: EMS History of Present Illness: HPI Narrative: 59-year-old female presents emergency room with cough moderately productive symptoms began yesterday she is also noted rapid heart rate. She has had some slight blood-tinged sputum. Tooth removed 3 days ago she is awake and alert but very hypotensive on arrival here she does not normally use oxygen at home has a new oxygen deficit requiring 2 L. She is significantly hypotensive with blood pressure in the 60s with a MAP of only 47. She is denying any chest pain at this time MD elicited complaint: shortness of breath and cough Pertinent past history: COPD Severity: mild Exacerbating factors: nothing Relieving factors: nothing Known history of: COPD Associated symptoms: Reports fever(s) and hemoptysis; Deny abdominal pain, chest congestion, chest pain, cough, diaphoresis, dizziness, extremity pain, lightheadedness, myalgias, nausea, orthopnea, palpitations, paresthesias, polydipsia, polyuria, rash, sense of impending doom, syncope or vomiting Treatment prior to arrival: oxygen and bronchodilator Review of Systems Const: Reports: fever(s), chills, fatigue and malaise; Denies: diaphoresis ENMT: Denies: throat pain, ear or mastoid pain, nasal discharge or nasal congestion Card: Denies: chest pain, palpitations, lightheadedness, syncope or orthopnea Resp: Reports: dyspnea, productive cough and hemoptysis; Denies: chest congestion GI: Denies: abdominal pain, nausea or vomiting : Denies: flank pain, difficulty voiding, dysuria, urinary frequency or urinary urgency Musc: Denies: neck pain, back pain or extremity pain Skin/Breast: Denies: rash or pruritus Neuro: Denies: dizziness Endo: Denies: polyuria or polydipsia PFSH ED PFSH: Medical History CAD (coronary artery disease) COPD (chronic obstructive pulmonary disease) HTN (hypertension) Hypercholesterolemia Ischemic bowel disease Major depressive disorder, recurrent, in full remission Myocardial infarction Osteoarthritis of shoulders, bilateral Palpitations Panic disorder 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 Tobacco abuse Warfarin anticoagulation Surgical History H/O cardiac catheterization H/O hysterectomy with oophorectomy H/O rotator cuff surgery History of right shoulder replacement Hx of appendectomy S/p bilateral carpal tunnel release S/P CABG x 4 S/P right hemicolectomy 01/01/2020 Status post colonoscopy Status post laparoscopic cholecystectomy 01/01/2020 Family History Daughter Diabetes Sister Diabetes x3 Brother Diabetes Son Hypertension Family/Other Thyroid condition granddaughter Mother Heart disease Denies family history of Colon cancer Ovarian cancer Clotting disorder Hyperlipidemia Breast cancer Anesthesia complication Bleeding disorder Uterine cancer Stroke Social History Smoking and tobacco status: former smoker (quit smoking 12/2021 ) Current occupational status: retired Physical Exam Const: COMMON NORMALS: no acute distress GENERAL APPEARANCE: cooperative and comfortable ORIENTATION/CONSCIOUSNESS: Yes awake, Yes oriented to person, Yes oriented to place and Yes oriented to time HENMT: COMMON NORMALS: normocephalic, atraumatic and hearing grossly normal bilaterally HEAD & SCALP: normocephalic and atraumatic Resp: COMMON NORMALS: normal respiratory effort, No retractions and No use of accessory muscles AUSCULTATION: rhonchi Cardio: COMMON NORMALS: regular rate, regular rhythm and No murmurs present (Cardio) RATE: regular rate RHYTHM: regular rhythm GI: COMMON NORMALS: Soft to palpation and No hepatosplenomegaly present AUSCULTATION: Yes normoactive bowel sounds PALPATION: Yes Soft to palpation, No Tenderness to palpation present (GI), No Guarding due to palpation present (GI) and Yes No hepatosplenomegaly present Extremity: COMMON NORMALS: normal to inspection, capillary refill normal, no clubbing, cyanosis or edema, no calf tenderness and no pedal edema Neuro: SENSORIUM/ORIENTATION: Yes oriented to person, Yes oriented to place and Yes oriented to time Skin: COMMON NORMALS: no rashes or lesions noted GENERAL SKIN EXAM: no rashes or lesions noted Course Vital Signs: Vital signs: Vital Signs Temperature 98.1 F 09/08/22 11:51 Pulse Rate 70 09/08/22 13:04 Respiratory Rate 31 H 09/08/22 13:04 Blood Pressure 107/74 09/08/22 13:04 Pulse Oximetry 98 09/08/22 13:04 Oxygen Delivery Me thod 09/08/22 13:04 Oxygen Flow Rate 2 09/08/22 13:04 MDM - SOB/Dyspnea Medical Decision Making Lower lobe pneumonias with mild leukocytosis ptosis. Patient significantly hypotensive. IV fluid bolus given started Zosyn and vancomycin all started on Levaquin due to hypotension. Will admit to the ICU discussed Dr. Martínez. Lab Data : 09/08/22 12:06 09/08/22 12:06 Labs/Radiology: Laboratory Results WBC 11.8 10^3/uL (4.0-10.0) H 09/08/22 12:06 RBC 3.96 10^6/uL (4.1-5.3) L 09/08/22 12:06 Hgb 12.1 g/dL (11.5-15.3) 09/08/22 12:06 Hct 38.4 % (37.0-47.0) 09/08/22 12:06 MCV 97.0 fl (81-99) 09/08/22 12:06 MCH 30.6 pg (28.0-34.0) 09/08/22 12:06 MCHC 31.5 g/dL (30.0-36.0) 09/08/22 12:06 RDW 12.4 % (12.1-15.1) 09/08/22 12:06 Plt Count 340 10^3/cmm (130-400) 09/08/22 12:06 MPV 9.8 fL (7.4-10.4) 09/08/22 12:06 Neut % (Auto) 78.8 % 09/08/22 12:06 Lymph % (Auto) 8.6 % 09/08/22 12:06 [place] % (Auto) 11.0 % 09/08/22 12:06 Eos % (Auto) 0.7 % 09/08/22 12:06 Baso % (Auto) 0.4 % 09/08/22 12:06 Neut # (Auto) 9.28 10^3/uL (1.8-7.7) H 09/08/22 12:06 Lymph # (Auto) 1.0 10^3/uL (0.8-4.8) 09/08/22 12:06 [place] # (Auto) 1.3 10^3/uL (0.2-0.9) H 09/08/22 12:06 Eos # (Auto) 0.1 10^3/uL (0.0-0.8) 09/08/22 12:06 Baso # (Auto) 0.1 10^3/uL (0.0-0.1) 09/08/22 12:06 Nucleated RBC % (auto) 0 % 09/08/22 12:06 Nucleated RBCs # 0.0 /100WBC 09/08/22 12:06 PT 13.10 SECONDS (12.1-14.9) 09/08/22 12:06 INR 0.97 (0.8-1.2) 09/08/22 12:06 APTT 24.2 SECONDS (23.9-36.7) 09/08/22 12:06 Specimen Type Arterial 09/08/22 12:35 Sample Site Radial, left 09/08/22 12:35 ABG pH 7.37 (7.35-7.45) 09/08/22 12:35 ABG pCO2 38.9 mmHg (35-45) 09/08/22 12:35 ABG pO2 70.9 mmHg (80.0-100.0) L 09/08/22 12:35 ABG HCO3 22.2 mmol/L (22-26) 09/08/22 12:35 ABG O2 Saturation 94.7 09/08/22 12:35 ABG Base Excess -2.9 mmol/L (-2.0-2.0) L 09/08/22 12:35 Elmer Test Pos 09/08/22 12:35 A-a O2 Gradient 10.8 mmHg (5-10) H 09/08/22 12:35 Hematocrit 34.9 % (37-47) L 09/08/22 12:35 Hgb O2 Saturation 93.0 % (95-100) L 09/08/22 12:35 Carboxyhemoglobin 1.2 %THgb (0.4-20.1) 09/08/22 12:35 Methemoglobin 0.6 % (0.4-1.5) 09/08/22 12:35 Total Hemoglobin 11.4 g/dL (12-16) L 09/08/22 12:35 Sodium 136.0 mmol/L (131-143) 09/08/22 12:35 Potassium 3.7 mmol/L (3.5-5.0) 09/08/22 12:35 Glucose 99.0 mg/dL (70-115) 09/08/22 12:35 Ionized Calcium 1.2 mmol/L (1.1-1.4) 09/08/22 12:35 O2 Delivery Device Nc 09/08/22 12:35 O2 Liters/Min 2.0 % 09/08/22 12:35 FiO2 28.0 % 09/08/22 12:35 Belt Glass Sander ID Cak 09/08/22 12:35 Sodium 138 mmol/L (136-145) 09/08/22 12:06 Potassium 4.3 mmol/L (3.5-5.1) 09/08/22 12:06 Chloride 102 mmol/L (98-107) 09/08/22 12:06 Carbon Dioxide 26 mmol/L (22-29) 09/08/22 12:06 Anion Gap 14.3 (5-19) 09/08/22 12:06 BUN 11 mg/dL (8-23) 09/08/22 12:06 Glucose 93 mg/dL (65-115) 09/08/22 12:06 Calculated Osmolality 285 mOsm/kg (285-295) 09/08/22 12:06 Calcium 9.4 mg/dL (8.5-10.5) 09/08/22 12:06 Total Bilirubin 0.4 mg/dL (0.15-1.2) 09/08/22 12:06 Total Protein 6.9 g/dL (6.6-8.7) 09/08/22 12:06 Albumin 3.7 g/dL (3.5-5.2) 09/08/22 12:06 Globulin 3.2 g/dL (1.3-4.6) 09/08/22 12:06 Discharge Plan Discharge Patient Disposition: Admitted As Inpatient Clinical Impression: Pneumonia, Sepsis Condition: Stable Prescriptions: No Action acetaminophen [Tylenol Arthritis Pain] 650 mg tablet extended release 1,300 mg PO Q8H PRN (Reason: Pain) omeprazole 20 mg capsule,delayed release(DR/EC) 20 mg PO BID furosemide [Lasix] 40 mg tablet 40 mg PO QAM multivitamin [Daily Multi-Vitamin] Tablet 1 tab PO QAM ascorbate calcium (vitamin C) 500 mg tablet 1,000 mg PO QAM magnesium 250 mg tablet 250 mg PO QAM cholecalciferol (vitamin D3) 50 mcg (2,000 unit) tablet 2,000 unit PO QAM aspirin [Adult Aspirin Regimen] 81 mg tablet,delayed release (DR/EC) 81 mg PO QAM nitroglycerin 0.4 mg tablet, sublingual 0.4 mg sublingual Q5M PRN (Reason: chest pain) Qty: 60 3RF Rx Instructions: do not exceed 3 doses per episode alprazolam [Xanax] 1 mg tablet 1 mg PO TID PRN (Reason: Anxiety) Qty: 90 5RF Parnate 10 mg tablet 30 mg PO BID@,17 Qty: 180 5RF baclofen 10 mg tablet 10 mg PO TID Qty: 90 12RF montelukast 10 mg tablet 10 mg PO QAM Qty: 90 12RF metoprolol tartrate 25 mg tablet 12.5 mg PO BID Qty: 90 12RF clopidogrel [Plavix] 75 mg tablet 75 mg PO QAM Qty: 90 12RF fluticasone propionate 50 mcg/actuation spray,suspension 2 spray INTRANASAL BID Qty: 16 12RF amoxicillin 875 mg tablet 875 mg PO BID Qty: 20 0RF fluconazole [Diflucan] 150 mg tablet 150 mg PO Q3D 0 Days Qty: 2 0RF ranolazine [Ranexa] 1,000 mg tablet extended release 12 hr 1,000 mg PO BID Qty: 180 3RF fluticasone propion-salmeterol [Wixela Inhub] 100-50 mcg/dose Blister With Device 1 puff INHALATION BID ipratropium-albuterol 0.5 mg-3 mg(2.5 mg base)/3 mL solution for nebulization 3 ml INHALATION TID PRN (Reason: Shortness Of Breath) potassium chloride 20 mEq tablet,ER particles/crystals 20 meq PO QAM lovastatin 20 mg tablet 20 mg PO BEDTIME omega-3 fatty acids Capsule 1,000 mg PO DAILY@17 Atrovent HFA 17 mcg/actuation HFA aerosol inhaler 2 puff INHALATION Q6H PRN (Reason: Shortness Of Breath) Voltaren 1 % Gel 2 g TOPICAL QID PRN (Reason: Pain) Rx Instructions: apply to single elbow, wrist or hand; for hand includes palm/fingers/back of hand lidocaine 5 % Ointment See Rx Instructions .ROUTE .COMPLEX Rx Instructions: as directed prn melatonin 10 mg Tablet 10 mg PO BEDTIME PRN (Reason: Sleep) Colace 100 mg capsule 100 mg PO BID PRN Referrals: Venancio Mota MD [Primary Care Provider] - Coding Level of Care Code ED Adult Daycare Coordinator for Chg Fwd Exam Detailed
[2022-09-08 12:41] LABS: Alanine Aminotransferase 89 U/L (0-33); Albumin Level 3.7 g/dL (3.5-5.2); Alkaline Phosphatase 133 U/L (35-105); Anion Gap 14.3 (5-19); Aspartate Amino Transferase 121 U/L (0-32); Blood Urea Nitrogen 11 mg/dL (8-23); Calcium 9.4 mg/dL (8.5-10.5); Carbon Dioxide 26 mmol/L (22-29); Chloride 102 mmol/L (98-107); Globulin 3.2 g/dL (1.3-4.6); Glomerular Filtration Rate 40.7 mL/min (90-130); Glucose 93 mg/dL (65-115); Osmolality Calculated 285 mOsm/kg (285-295); Potassium 4.3 mmol/L (3.5-5.1); Sodium 138 mmol/L (136-145); Total Bilirubin 0.4 mg/dL (0.15-1.2); Total Protein 6.9 g/dL (6.6-8.7)
[2022-09-08 12:47] LABS: ABG PCO2 38.9 mmHg (35-45); ABG PH Result 7.37 (7.35-7.45); Alveolar-Arterial Oxygen Gradi 10.8 mmHg (5-10); Arterial Blood Gas Hematocrit 34.9 % (37-47); Base Excess ABG -2.9 mmol/L (-2.0-2.0); Blood Gas Allen Test Pos; Blood Gas Operator Identificat CAK; Blood Gas Sample Site Radial, left; Blood Gas Sample Type Arterial; Carboxyhemoglobin 1.2 %THgb (0.4-20.1); HCO3 ABG 22.2 mmol/L (22-26); Ionized Calcium Level - ABG 1.2 mmol/L (1.1-1.4); Methemoglobin 0.6 % (0.4-1.5); Oxygen Device NC; Oxygen Saturation ABG 94.7; PO2 ABG 70.9 mmHg (80.0-100.0); Potassium Level - ABG 3.7 mmol/L (3.5-5.0); Total Hemoglobin 11.4 g/dL (12-16)
[2022-09-08] MEDS: vancomycin 1,000 MG in sodium chloride 0.9% 250 ML 250 MG IV (13:13)
[2022-09-08 13:15] LABS: Lactic Sepsis W/Reflex 1.4 mmol/L (0.5-2.2)
[2022-09-08 14:04] LABS: Iron 30 ug/dL (37-145); Percent Saturation 9.1 % (20-50); Total Iron Binding Capacity 328 mcg/dl; Unsaturated Iron Binding 298 ug/dL (112-347)
[2022-09-08 14:10] LABS: Procalcitonin 7.05 ng/mL (0-0.5)
[2022-09-08 14:16] LABS: Cortisol Random 42.23 ug/dL (2.47-19.5)
[2022-09-08 14:22] LABS: C Reactive Protein 19.5 mg/L (0.0-4.9); Thyroid Stimulating Hormone 1.16 uIU/mL (0.27-4.20); Vitamin B12 1010 pg/mL (232-1245)
--- NOTE | 2022-09-08 14:29 | P.HP_ITS ---
Providers/Chief Complaint Admitting Physician: Enoch Martínez MD Primary Care Provider: Venancio Mota MD Chief Complaint: POSS PNEUMONIA; COUGHING UP BLOOD History of Present Illness Rebecca Coombs is a 67 year old female past medical history of coronary artery disease, post CABG and multiple PCI with last intervention done in July and November 2021, tobacco abuse, orthostatic hypotension, COPD, hypertension, dyslipidemia, chronic hypertension with blood pressures usually running 90-110 systolics Angiogram in July 22 which was showing proximal to mid LAD stenosis, first obtuse marginal 80% stenosis, proximal circumflex critical stenosis, proximal to mid RCA [employer], SVG to distal RCA graft total occlusion, SVG to first diagonal graft patent, SVG to first obtuse marginal graft total occlusion. Patient underwent staged PCI and atherectomy to proximal to mid LAD as well. Then in November 2021 she was found to have pinching of the stent which underwent high- pressure full balloon angioplasty. As per the patient she was in her regular health till 2 days ago. 2 days ago she had her lower dentures placed. She stated at that point she did not take care of her general health and since yesterday she started having fevers and chills. Today she started having cough with few episodes of hemoptysis though she has been having bleeding through the gums since her placement of dentures. Other than she denies any dysuria, chest pain, diarrhea, cold. She states she always has dizziness secondary to her hypotension. Review of Systems General: Reports: 10 or more systems reviewed and unremarkable except in HPI and below Const: Denies: fever(s), chills, body aches, change in appetite, change in weight, malaise, night sweats, diaphoresis, change in sleep pattern, daytime sleepiness or snoring Eyes: Denies: change in vision, blurry vision, photophobia, eye discomfort or eye discharge ENMT: Denies: throat pain, enlarged tonsils, hoarseness, mouth pain, oral sores, dry mouth, tinnitus, nasal congestion or post nasal drip Card: Denies: chest pain, palpitations, irregular heart rhythm, edema, swelling of feet/ankles, lightheadedness, syncope, pre-syncope, dyspnea on exertion, orthopnea, leg pain with exertion or acrocyanosis Resp: Denies: dyspnea, productive cough, non-productive cough, wheezing, stridor, pain on inspiration, change in phlegm color, hemoptysis or chest congestion GI: Denies: abdominal pain, nausea, vomiting, hematemesis, coffee ground emesis, dysphagia, heartburn, diarrhea, constipation, bloating, GI cramping, change in bowel habits, pain on defecation, hematochezia or melena : Denies: flank pain, dysuria, urinary frequency, urinary urgency, urinary hesitancy, nocturia or hematuria Musc: Denies: neck pain, back pain, extremity pain, joint pain, joint swelling, joint redness, joint stiffness or limited range of motion Neuro: Denies: headache(s), numbness in extremities, weakness in extremities, sensory changes, lack of coordination, difficulty walking, frequent falls, dizziness, vertigo, confusion, Slurred speech present, difficulty communicating thoughts or seizure-like activity Psych: Denies: anxiety, depression, mood swings, panic attacks, hopelessness or irritability Endo: Denies: polyuria, polydipsia, tired all the time, cold intolerance, excessive sweating, flushing or heat intolerance Jovany/Lymph: Denies: easy bruising or easy bleeding All/Imm: Denies: tongue swelling, facial swelling or acute wheezing Medications/Allergies Home Medications Medication Instructions Recorded Confirmed Last Taken Type ascorbate calcium (vitamin C) 500 1,000 mg PO QAM 12/08/19 09/08/22 09/08/22 History mg tablet furosemide 40 mg tablet (Lasix) 40 mg PO QAM 12/08/19 09/08/22 09/08/22 History magnesium 250 mg tablet 250 mg PO QAM 12/08/19 09/08/22 09/08/22 History multivitamin (Daily Multi-Vitamin 1 tab PO QAM 12/08/19 09/08/22 09/08/22 History tablet) omeprazole 20 mg capsule,delayed 20 mg PO BID 12/08/19 09/08/22 09/08/22 History release fluticasone 100 mcg-salmeterol 50 1 puff inhalation BID 01/01/20 09/08/22 09/08/22 History mcg/dose blistr powdr for inhalation (Wixela Inhub) aspirin 81 mg tablet,delayed 81 mg PO QAM 08/30/20 09/08/22 09/08/22 History release (Adult Aspirin Regimen) cholecalciferol (vitamin D3) 50 2,000 unit PO QAM 06/01/21 09/08/22 09/08/22 History mcg (2,000 unit) tablet acetaminophen 650 mg 1,300 mg PO Q8H PRN Pain 08/29/21 09/08/22 01/08/22 History tablet,extended release (Tylenol Arthritis Pain) ipratropium 0.5 mg-albuterol 3 mg 3 ml inhalation TID PRN Shortness 11/30/21 09/08/22 Unknown History (2.5 mg base)/3 mL nebulization Of Breath soln ipratropium bromide 17 2 puff inhalation Q6H PRN 11/30/21 09/08/22 Unknown History mcg/actuation HFA aerosol inhaler Shortness Of Breath (Atrovent HFA) lovastatin 20 mg tablet 20 mg PO BEDTIME 11/30/21 09/08/22 09/07/22 History omega-3 fatty acids 1,000 mg PO DAILY@17 11/30/21 09/08/22 09/07/22 History potassium chloride 20 mEq 20 meq PO QAM 11/30/21 09/08/22 09/08/22 History tablet,extended release(part/cryst) diclofenac sodium 1 % topical gel 2 g topical QID PRN Pain 01/09/22 09/08/22 Unknown History lidocaine 5 % topical ointment See Rx Instructions .Route .COMPLEX 01/09/22 09/08/22 Unknown History melatonin 10 mg tablet 10 mg PO BEDTIME PRN Sleep 01/09/22 09/08/22 09/07/22 History nitroglycerin 0.4 mg sublingual 0.4 mg sublingual Q5M PRN chest 01/16/22 09/08/22 Unknown Rx tablet pain #60 tabs ranolazine 1,000 mg 1,000 mg PO BID #180 tabs 03/05/22 09/08/22 09/08/22 Rx tablet,extended release,12 hr (Ranexa) docusate sodium 100 mg capsule 100 mg PO BID PRN Constipation 05/08/22 09/08/22 Unknown History (Colace) baclofen 10 mg tablet 10 mg PO TID #90 tabs 07/05/22 09/08/22 09/08/22 Rx clopidogrel 75 mg tablet (Plavix) 75 mg PO QAM #90 tabs 07/05/22 09/08/22 09/08/22 Rx fluticasone propionate 50 2 spray intranasal BID #16 grams 07/05/22 09/08/22 09/08/22 Rx mcg/actuation nasal spray,suspension metoprolol tartrate 25 mg tablet 12.5 mg PO BID #90 tabs 07/05/22 09/08/22 09/08/22 Rx montelukast 10 mg tablet 10 mg PO QAM #90 tabs 07/05/22 09/08/22 09/08/22 Rx alprazolam 1 mg tablet (Xanax) 1 mg PO TID PRN Anxiety #90 tabs 07/11/22 09/08/22 Unknown Rx tranylcypromine 10 mg tablet 30 mg PO BID@10,17 #180 tabs 07/11/22 09/08/22 09/08/22 Rx (Parnate) hydrocodone 5 mg-acetaminophen 325 1 tab PO Q4H PRN Pain 09/08/22 09/08/22 Unknown History mg tablet Allergies Allergy/AdvReac Type Severity Reaction Status Date / Time pregabalin [From Lyrica] Allergy Severe dizziness Verified 07/30/22 14:43 codeine AdvReac Unknown Unknown Verified 07/30/22 14:43 gabapentin [From Neurontin] AdvReac Unknown dizziness Verified 07/30/22 14:43 oxycodone [From OxyContin] AdvReac Unknown Unknown Verified 07/30/22 14:43 Ngjnwlj-AXD-CgU Reductase AdvReac Unknown muscle Verified 07/30/22 14:43 Inhibitor aches [Bewentd-Ocg-Cqe Reductase Inhibitor] tramadol AdvReac Unknown rash Verified 07/30/22 14:43 PFSH Acute PFSH: Medical History (Updated 09/08/22 @ 14:36 by Enoch Martínez MD) Bladder prolapse CAD (coronary artery disease) COPD (chronic obstructive pulmonary disease) Cystocele with prolapse HTN (hypertension) Hypercholesterolemia Incomplete prolapse of vaginal vault Ischemic bowel disease Major depressive disorder, recurrent, in full remission Myocardial infarction Orthostatic hypotension Osteoarthritis of shoulders, bilateral Palpitations Panic disorder 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 Tobacco abuse Warfarin anticoagulation Surgical History (Updated 09/08/22 @ 14:32 by Enoch Martínez MD) H/O cardiac catheterization H/O hysterectomy with oophorectomy H/O rotator cuff surgery H/O: hysterectomy History of right shoulder replacement Hx of appendectomy S/p bilateral carpal tunnel release S/P CABG x 4 S/P right hemicolectomy 01/01/2020 Status post colonoscopy Status post laparoscopic cholecystectomy 01/01/2020 Family History Daughter Diabetes Sister Diabetes x3 Brother Diabetes Son Hypertension Family/Other Thyroid condition granddaughter Mother Heart disease Denies family history of Colon cancer Ovarian cancer Clotting disorder Hyperlipidemia Breast cancer Anesthesia complication Bleeding disorder Uterine cancer Stroke Social History Smoking and tobacco status: former smoker (quit smoking 12/2021 ) Current occupational status: retired Vitals/I&O/Wt Last Vital Signs Temp 98.1 F 09/08/22 11:51 Pulse 69 09/08/22 14:20 Resp 32 H 09/08/22 14:20 BP 91/52 09/08/22 14:20 Pulse Ox 97 09/08/22 14:20 O2 Del Method 09/08/22 13:26 O2 Flow Rate 2 09/08/22 13:26 09/07/22 09/08/22 09/08/22 22:59 06:59 14:59 Intake Total 343.561 / 343.561 Balance 343.561 / 343.561 Weight last 48 hrs Weight 84.822 kg Physical Exam Narrative: EXAM NARRATIVE: General: No acute distress, AO x3, NC oxygen supplementation, currently on Levophed HEENT: PERRLA, pupils bilaterally equal and reactive, lips chapped with old clotted blood Chest:Bronchial breath sounds b/l ,decreased air entry, equal good air entry bi laterally, no more fine basal crackles CVS: S1-S2 regular, no murmurs, no tachycardia, no gallops, no rubs Abdomen: Soft, nontender, no organomegaly, bowel sounds present, morbidly obese Neuro: No focal deficits, no facial deformity, AO x3, power 5/5 in all limbs Urinary Catheter Management: Santa: Cath Placed During This Visit: yes Urinary Catheter Date of Insertion: 09/08/22 Urinary Catheter Time of Insertion: 13:15 Data : 09/08/22 12:06 09/08/22 12:06 Other Labs: Abnormal lab results 09/08/22 09/08/22 09/08/22 Range/Units 12:06 12:06 12:06 WBC 11.8 H (4.0-10.0) 10^3/uL RBC 3.96 L (4.1-5.3) 10^6/uL Neut # (Auto) 9.28 H (1.8-7.7) 10^3/uL [place] # (Auto) 1.3 H (0.2-0.9) 10^3/uL ABG pO2 (80.0-100.0) mmHg ABG Base Excess (-2.0-2.0) mmol/L A-a O2 Gradient (5-10) mmHg Hematocrit (37-47) % Hgb O2 Saturation (95-100) % Total Hemoglobin (12-16) g/dL Creatinine 1.3 H (0.5-0.9) mg/dL GFR Calculation 40.7 L (90-130) mL/min Iron 30 L (37-145) ug/dL % Saturation 9.1 L (20-50) % AST 121 H (0-32) U/L ALT 89 H (0-33) U/L Alkaline Phosphatase 133 H (35-105) U/L C-Reactive Protein (0.0-4.9) mg/L Procalcitonin 7.05 H (0-0.5) ng/mL Random Cortisol (2.47-19.5) ug/dL 09/08/22 09/08/22 09/08/22 Range/Units 12:06 12:06 12:35 WBC (4.0-10.0) 10^3/uL RBC (4.1-5.3) 10^6/uL Neut # (Auto) (1.8-7.7) 10^3/uL [place] # (Auto) (0.2-0.9) 10^3/uL ABG pO2 70.9 L (80.0-100.0) mmHg ABG Base Excess -2.9 L (-2.0-2.0) mmol/L A-a O2 Gradient 10.8 H (5-10) mmHg Hematocrit 34.9 L (37-47) % Hgb O2 Saturation 93.0 L (95-100) % Total Hemoglobin 11.4 L (12-16) g/dL Creatinine (0.5-0.9) mg/dL GFR Calculation (90-130) mL/min Iron (37-145) ug/dL % Saturation (20-50) % AST (0-32) U/L ALT (0-33) U/L Alkaline Phosphatase (35-105) U/L C-Reactive Protein 19.5 H (0.0-4.9) mg/L Procalcitonin (0-0.5) ng/mL Random Cortisol 42.23 H (2.47-19.5) ug/dL Micro: Microbiology 09/08/22 12:32 Blood Culture - Preliminary Blood SPECIMEN COLLECTED 09/08/22 12:37 Blood Culture - Preliminary Blood SPECIMEN COLLECTED A&P Assessment and plan (1) Septic shock: (2) Pneumonia: Qualifiers: Laterality: left Lung location: lower lobe of lung (3) GEOVANNY (acute kidney injury): (4) COPD (chronic obstructive pulmonary disease): (5) Transaminitis: (6) Orthostatic hypotension: (7) Coronary artery disease: (8) HTN (hypertension): (9) Hypercholesterolemia: (10) Major depressive disorder, recurrent, in full remission: (11) S/P CABG x 4: (12) Tobacco abuse: Plan Septic shock: Patient currently on Levophed. Target organ dysfunction with acute kidney injury and transaminitis on admission. Most likely secondary to pneumonia. Keep mean arterial pressure around 60-65 or systolic blood pressure around 90?100 mmHg. Wean off Levophed accordingly. Keep normal saline at 75 cc/h. Check blood culture, urinalysis, urine culture, procalcitonin, MRSA swab, sputum culture, D-dimer. For now start on vancomycin and Zosyn as per creatinine clearance. Will de-esc alate antibiotics as per culture results. Patient does have history of chronic hypotension and orthostatic hypotension. Not on midodrine as an outpatient because of interaction with MAOIs. For now we will start on midodrine 5 mg 3 times daily. Check cortisol levels. Can also try pyridostigmine. Hypoxia: Most likely secondary to pneumonia. Check D-dimer. If D-dimer is elevated will do CTA versus CT chest without contrast. Antibiotics as above. DuoNebs every 6 hour, budesonide twice daily. Oxygen supplementation keeping saturation over 88%. Acute kidney injury: Most likely secondary to sepsis. Medical reconciliation done for nephrotoxic drugs. Hold off on diuresis for now. IV hydration as above. Monitor BMP daily. Electrolyte replacement accordingly. Transaminitis: Most likely secondary sepsis as well. Monitor daily. CAD: Post CABG: Continue with home dose of aspirin, Plavix, statin. We will hold off on beta-mara now given being on Levophed. Denies any current chest pain. Last echocardiogram shows EF of 59% grade 1 diastolic dysfunction. Orthostatic hypotension/hypertension: Chronic for patient. As per patient usually blood pressures are ranging from 90-100 mmHg. A lot of times has systolic blood pressures as low as 70 at home as well. Always dizzy and orthostatic because of hypotension as per the patient. Analgesia: Tylenol as needed Glycemic control: Not needed. Check A1c. Nutrition: Mechanical soft diet CODE STATUS: Full code. Discussed in detail with the patient. DPOA would be her daughter. PUD prophylaxis: Famotidine for PUD prophylaxis DVT prophylaxis: SCDs for DVT prophylaxis. We will continue to monitor blood to the gums before starting her on DVT prophylaxis Discharge planning: Home with caregiver once medically cleared Admit to ICU. This documentation was created by [employer] assembler fitter software. Every effort was made to ensure accuracy of assembler fitter. Any obvious errors or omissions should be clarified with the author of the document. Attestations Medical Necessity Statement*: Admission for more than 2 midnights for management of septic shock secondary to pneumonia leading to acute kidney injury while further work-up was done. Critical Care Time: The high probability of a clinically significant, sudden or life threatening deterioration of the patient's [cardiac, renal, pulmonary] system(s) required my full and direct attention, intervention and personal management. The critical care time is as shown. This time is in addition to time spent performing any reported procedures but includes the following: [x] Data and vital sign review and interpretation [x] Patient assessment, examination and intervention [x] Documentation [x] Medication orders and management Critical Care Time (min): 60 Coding Level of Care Code Acute Insurance Underwriter Sales for [facility] Diagnoses Septic shock A41.9; R65.21 Pneumonia J18.9 Laterality: left Lung location: lower lobe of lung GEOVANNY (acute kidney injury) N17.9 COPD (chronic obstructive pulmonary disease) J44.9 Transaminitis R74.01 Orthostatic hypotension I95.1 Coronary artery disease I25.10 HTN (hypertension) I10 Hypercholesterolemia E78.00 Major depressive disorder, recurrent, in full remission F33.42 S/P CABG x 4 Z95.1 Tobacco abuse Z72.0
[2022-09-08 14:36] LABS: Eosinophil Urine No Eosinophils Seen
[2022-09-08 14:39] LABS: D Dimer 5.39 ug/mIFEU (0-0.59)
--- NOTE | 2022-09-08 14:43 | CTR_ITS ---
PROCEDURE INFORMATION: Exam: CTA Chest With Contrast Exam date and time: 09/08/2022 4:27 PM Age: 67 years old Clinical indication: Cough; Prior surgery; Surgery type: Cabg; Additional info: Elevayed dimer, septic shock, hemoptysis TECHNIQUE: Imaging protocol: Computed tomographic angiography of the chest with contrast. 3D rendering (Not supervised by radiologist): MIP and/or 3D reconstructed images were created by the technologist. Radiation optimization: All CT scans at this facility use at least one of these dose optimization techniques: automated exposure control; mA and/or kV adjustment per patient size (includes targeted exams where dose is matched to clinical indication); or iterative reconstruction. Contrast material: OMNIPAQUE 350; Contrast volume: 200 ml; Contrast route: INTRAVENOUS (IV); COMPARISON: CT angio chest PE protcl [id number] 11/30/2021 3:37 PM RADIATION DOSE METRICS: Total DLP (mGy-cm): 1070.71 FINDINGS: Pulmonary arteries: Normal. No pulmonary emboli. Aorta: Unremarkable. No aortic aneurysm. No aortic dissection. Lungs: There is patchy consolidation of the left upper and lower lobes consistent with pneumonia. Pleural spaces: Small left pleural effusion. Heart: Multivessel atherosclerotic disease which involves the coronary arteries. Lymph nodes: Unremarkable. No enlarged lymph nodes. Bones/joints: There are post sternotomy changes and postoperative changes in the anterior mediastinum. There are degenerative changes in the visualized spine. Right reverse shoulder replacement. Soft tissues: Unremarkable. CT/CT angio chest PE protcl [id number] IMPRESSION: Left upper and lower lobe pneumonia.
[2022-09-08 14:52] LABS: Urine Eosinophil Count 0 (0-0)
[2022-09-08 14:52] LABS: Folate Level > 20.0 ng/mL (4.8-37.3)
[2022-09-08] MEDS: iohexol 350 mg/mL 100 mL Btl IV (16:31)
[2022-09-08 17:01] LABS: NT Pro B Type Natriuretic Pept 4183 pg/mL (0-125)
[2022-09-08] MEDS: ferrous gluconate 324 mg Tablet PO (17:45)
[2022-09-08] MEDS: midodrine 5 mg TABLET PO ×2 (17:45→20:25)
[2022-09-08] MEDS: famotidine 20 mg/2 mL INJ IVP (17:45)
[2022-09-08] MEDS: nystatin 100,000 unit/mL UDC 5 mL 100000 UNIT PO ×2 (17:46→20:25)
[2022-09-08] MEDS: sodium chloride 0.9% 1,000 ML 100 ML IV (17:46)
[2022-09-08] MEDS: chlorhexidine gluconate 0.12% Btl 473 mL 15 ML MUCOUS MEM (17:47)
[2022-09-08] MEDS: ranolazine (12HR) 500 mg Tablet 1000 MG PO (17:47)
[2022-09-08] MEDS: TRANYLCYPROMINE 10 MG 30 EACH PO (17:47)
[2022-09-08 19:24] LABS: Adenovirus Not Detected (NOT DETECT); Chlamydia Pneumoniae Not Detected (NOT DETECT); Coronavirus 229E,HKU1,NL63,OC4 Not Detected (NOT DETECT); Human Metapneumovirus Not Detected (NOT DETECT); Human Rhinovirus/Enterovirus Not Detected (NOT DETECT); Influenza A Not Detected (NOT DETECT); Influenza A H1 Not Detected (NOT DETECT); Influenza A H1-2009 Not Detected (NOT DETECT); Influenza A H3 Not Detected (NOT DETECT); Influenza B Not Detected (NOT DETECT); Mycoplasma Pneumoniae Not Detected (NOT DETECT); Parainfluenza Virus Type 1 Not Detected (NOT DETECT); Parainfluenza Virus Type 2 Not Detected (NOT DETECT); Parainfluenza Virus Type 3 Not Detected (NOT DETECT); Parainfluenza Virus Type 4 Not Detected (NOT DETECT); Respiratory Syncytial Virus A Not Detected (NOT DETECT); Respiratory Syncytial Virus B Not Detected (NOT DETECT); SARS-COV-2 Not Detected (NOT DETECT)
[2022-09-08] MEDS: budesonide 0.5 mg/2 mL Neb INHALATION (20:19)
[2022-09-08] MEDS: ipratropium-albuterol 3 mL Neb INHALATION (20:19)
[2022-09-08] MEDS: baclofen 10 mg Tablet PO (20:25)
[2022-09-08] MEDS: atorvastatin 40 mg Tablet 20 MG PO (20:25)
[2022-09-08] MEDS: acetaminophen 325 mg Tablet 650 MG PO (20:58)
[2022-09-08] MEDS: pyridostigmine 60 mg Tablet PO (22:27)
[2022-09-08] MEDS: ALPRAZolam 0.5 mg Tablet 1 MG PO (23:18)
[2022-09-09] VITALS (107 sets, daily range): BP systolic 69–113; BP diastolic 36–63; PULSE 69–97; RESP 13–38; TEMP 36.6–37.6; O2SAT 83–99
[2022-09-09] MEDS: ipratropium-albuterol 3 mL Neb INHALATION ×4 (03:12→20:13)
[2022-09-09] MEDS: ketorolac 30 mg/mL INJ 15 MG IVP (03:24)
[2022-09-09] MEDS: piperacillin-tazobactam 3.375 GM in sodium chloride 0.9% (plus) 50 ML IV (03:25)
[2022-09-09] MEDS: aspirin 81 mg EC Tablet PO (05:19)
[2022-09-09] MEDS: clopidogrel 75 mg Tablet PO (05:19)
[2022-09-09] MEDS: famotidine 20 mg/2 mL INJ IVP ×2 (05:19→16:32)
[2022-09-09 05:24] LABS: Basophils # 0.1 10^3/uL (0.0-0.1); Basophils % 0.6 %; Eosinophils # 0.1 10^3/uL (0.0-0.8); Eosinophils % 0.7 %; Hematocrit 31.5 % (37.0-47.0); Lymphocytes # 2.2 10^3/uL (0.8-4.8); Lymphocytes % 12.3 %; Mean Corpuscular HGB Conc 31.7 g/dL (30.0-36.0); Mean Corpuscular Hemoglobin 30.5 pg (28.0-34.0); Mean Platelet Volume 9.5 fL (7.4-10.4); Monocytes # 1.6 10^3/uL (0.2-0.9); Monocytes % 9.2 %; Neutrophils # 13.01 10^3/uL (1.8-7.7); Nucleated Red Blood Cells % 0 %; Platelet Count 297 10^3/cmm (130-400); Red Blood Count 3.28 10^6/uL (4.1-5.3); Red Cell Distribution Width 12.6 % (12.1-15.1); White Blood Count 17.6 10^3/uL (4.0-10.0)
--- NOTE | 2022-09-09 05:34 | PC.NURSE ---
Shift Note Frequent safety and comfort rounds continue. Orders and/or nursing care completed as indicated. Patient monitored for response to intervention and treatment(s). Education provided includes medication and treatment plan. Patient verbalized understanding of teaching. Patient had an uneventful shift remains alert/oriented x4, on room air. No wounds or skin issues noted at this time. Levophed and IVF infusing per protocol, please see MAR for infusion rates. Patient reported pain throughout shift, PRN medication administered please see MAR for details. Santa catheter drained 2450 mls of urine overnight. Will continue to monitor.
[2022-09-09 05:50] LABS: Alanine Aminotransferase 90 U/L (0-33); Alkaline Phosphatase 114 U/L (35-105); Aspartate Amino Transferase 77 U/L (0-32); Blood Urea Nitrogen 17 mg/dL (8-23); Calcium 8.1 mg/dL (8.5-10.5); Carbon Dioxide 23 mmol/L (22-29); Chloride 107 mmol/L (98-107); Chol HDL Ratio 2.58 mg/dL (0.0-4.40); Cholesterol 129 mg/dL (0-200); Globulin 2.9 g/dL (1.3-4.6); Glomerular Filtration Rate 49.4 mL/min (90-130); Glucose 120 mg/dL (65-115); HDL Cholesterol 50 mg/dL (60-100); LDL Cholesterol Calculated 70 mg/dL (50-129); Osmolality Calculated 291 mOsm/kg (285-295); Phosphorus 2.6 mg/dL (2.5-4.5); Sodium 139 mmol/L (136-145); Total Bilirubin 0.3 mg/dL (0.15-1.2); Total Protein 5.9 g/dL (6.6-8.7); Triglycerides 47 mg/dL (0-150); VLDL Cholestrol Calculation 9 mg/dL (0-30)
[2022-09-09 05:56] LABS: Estmated Average Glucose 108; Hemoglobin A1C 5.4 % (4.0-6.0)
[2022-09-09] MEDS: budesonide 0.5 mg/2 mL Neb INHALATION ×2 (07:53→20:13)
[2022-09-09] MEDS: ferrous gluconate 324 mg Tablet PO ×2 (08:18→17:32)
[2022-09-09] MEDS: ranolazine (12HR) 500 mg Tablet 1000 MG PO ×2 (08:50→17:32)
[2022-09-09] MEDS: midodrine 5 mg TABLET PO ×3 (08:50→21:24)
[2022-09-09] MEDS: baclofen 10 mg Tablet PO ×2 (08:50→14:09)
[2022-09-09] MEDS: pyridostigmine 60 mg Tablet PO ×4 (08:50→21:23)
[2022-09-09] MEDS: nystatin 100,000 unit/mL UDC 5 mL 100000 UNIT PO ×4 (08:52→21:23)
[2022-09-09] MEDS: chlorhexidine gluconate 0.12% Btl 473 mL 15 ML MUCOUS MEM ×2 (08:53→17:33)
[2022-09-09] MEDS: docusate sodium 100 mg Capsule PO (08:53)
[2022-09-09] MEDS: TRANYLCYPROMINE 10 MG 30 EACH PO ×2 (09:02→16:34)
--- NOTE | 2022-09-09 13:09 | PC.NURSE ---
Rt placed patient on CPAP on vent, patient opens eyes and occasionally moves legs though difficult to determine if it is per commands. RT to switch patient back to vent support per Dr. Dos Santos
[2022-09-09] MEDS: vancomycin 1,000 MG in sodium chloride 0.9% 250 ML 250 MG IV (13:51)
--- NOTE | 2022-09-09 13:55 | PM.PN ---
Subjective Subjective: No acute events overnight. Patient has remained afebrile. Documented urine output of around 2800 cc since admission. Around 600 cc at 9 AM since 4 AM. When seen earlier in the day she was on Levophed of 18 which was turned down to 8 by afternoon keeping mean arterial pressure between 60 and 65. Patient is awake and alert without any confusion. Vitals/I&O/Wt Last Vital Signs Temp 97.8 F 09/09/22 05:25 Pulse 70 09/09/22 08:05 Resp 26 H 09/09/22 08:00 BP 79/50 09/09/22 08:00 Pulse Ox 92 09/09/22 08:00 O2 Del Method 09/09/22 07:55 O2 Flow Rate 2 09/09/22 07:55 09/08/22 09/09/22 09/09/22 22:59 06:59 14:59 Intake Total 3059.099 / 3402.660 954 / 4356.660 554 / 554 Output Total 400 / 400 2450 / 2850 Balance 2659.099 / 3002.660 -1496 / 1506.660 554 / 554 Weight last 48 hrs Weight 84.822 kg Physical Exam Narrative: EXAM NARRATIVE: General: No acute distress, AO x3, NC oxygen supplementation, currently on Levophed HEENT: PERRLA, pupils bilaterally equal and reactive, lips chapped with old clotted blood Chest:Bronchial breath sounds b/l ,decreased air entry, equal good air entry bilaterally, no more fine basal crackles CVS: S1-S2 regular, no murmurs, no tachycardia, no gallops, no rubs Abdomen: Soft, nontender, no organomegaly, bowel sounds present, morbidly obese Neuro: No focal deficits, no facial deformity, AO x3, power 5/5 in all limbs Urinary Catheter Management: Santa: Cath Placed During This Visit: yes Reason for Continuing Indwelling Catheter: Accurate Measurement of Urinary Output in Critically Ill Patients Urinary Catheter Date of Insertion: 09/08/22 Urinary Catheter Time of Insertion: 15:00 Data : 09/09/22 05:00 09/09/22 05:00 Micro: Microbiology 09/08/22 12:32 Blood Culture - Preliminary Blood NEGATIVE TO DATE 09/08/22 12:37 Blood Culture - Preliminary Blood NEGATIVE TO DATE 09/08/22 14:02 Bacterial Antigens - Final Urine Kidney A&P Assessment and plan (1) Septic shock: (2) Pneumonia: Qualifiers: Laterality: left Lung location: lower lobe of lung (3) GEOVANNY (acute kidney injury): (4) COPD (chronic obstructive pulmonary disease): (5) Transaminitis: (6) Orthostatic hypotension: (7) Coronary artery disease: (8) HTN (hypertension): (9) Hypercholesterolemia: (10) Major depressive disorder, recurrent, in full remission: (11) S/P CABG x 4: (12) Tobacco abuse: Plan Septic shock: Patient currently on Levophed. Target organ dysfunction with acute kidney injury and transaminitis on admission. Most likely secondary to pneumonia. Keep mean arterial pressure around 60-65 or systolic blood pressure around 90?100 mmHg. Wean off Levophed accordingly. Stop IV fluids as patient becoming mildly hypervolemic today. Follow-up blood culture. Urinalysis not done as of yet. UA sample in the lab lost. Have requested for repeat urinalysis though patient has been on antibiotics for 24 hours. Follow-up MRSA swab, sputum culture. CTA negative for pulmonary embolism. Continue vancomycin. Patient having worsening leukocytosis today. Will escalate from Zosyn to imipenem for now. Follow-up cultures and will de-escalate antibiotics accordingly. Past has history of pneumonia with E. coli and MSSA. Patient does have history of chronic hypotension and orthostatic hypotension. Not on midodrine as an outpatient because of interaction with MAOIs. Continue with midodrine 5 mg 3 times daily, pyridostigmine 60 mg 4 times daily. Hypoxia: Most likely secondary to pneumonia with a component of diastolic heart failure now. Stop IV fluids. Antibiotics as above. DuoNebs every 6 hour, budesonide twice daily. Oxygen supplementation keeping saturation over 88%. Acute kidney injury: Most likely secondary to sepsis. Creatinine trending down. Medical reconciliation done for nephrotoxic drugs. Hold off on diuresis and IV fluids for now. Monitor BMP daily. Electrolyte replacement accordingly. Transaminitis: Most likely secondary sepsis as well. Monitor daily. CAD: Post CABG: Continue with home dose of aspirin, Plavix, statin. We will hold off on beta-mara now given being on Levophed. Denies any current chest pain. Last echocardiogram shows EF of 59% grade 1 diastolic dysfunction. Repeat echocardiogram. Orthostatic hypotension/hypertension: Chronic for patient. As per patient usually blood pressures are ranging from 90-100 mmHg. A lot of times has systolic blood pressures as low as 70 at home as well. Always dizzy and orthostatic because of hypotension as per the patient. Analgesia: Tylenol as needed Glycemic control: Not needed. A1c 5. Nutrition: Mechanical soft diet CODE STATUS: Full code. Discussed in detail with the patient. DPOA would be her daughter. PUD prophylaxis: Famotidine for PUD prophylaxis DVT prophylaxis: SCDs for DVT prophylaxis. We will continue to monitor blood to the gums before starting her on DVT prophylaxis Discharge planning: Home with caregiver once medically cleared Admit to ICU. This documentation was created by [employer] intelligence chief software. Every effort was made to ensure accuracy of intelligence chief. Any obvious errors or omissions should be clarified with the author of the document. Attestations Medical Necessity Statement*: Requires further hospitalization for management of septic shock while Levophed is weaned off and the patient with pneumonia, acute kidney injury Critical Care Time: The high probability of a clinically significant, sudden or life threatening deterioration of the patient's [cardiac, renal, pulmonary] system(s) required my full and direct attention, intervention and personal management. The critical care time is as shown. This time is in addition to time spent performing any reported procedures but includes the following: [x] Data and vital sign review and interpretation [x] Patient assessment, examination and intervention [x] Documentation [x] Medication orders and management Critical Care Time (min): 70 Coding Level of Care Code Acute Bisque Cleaner for [facility] Fwd Diagnoses Septic shock A41.9; R65.21 Pneumonia J18.9 Laterality: left Lung location: lower lobe of lung GEOVANNY (acute kidney injury) N17.9 COPD (chronic obstructive pulmonary disease) J44.9 Transaminitis R74.01 Orthostatic hypotension I95.1 Coronary artery disease I25.10 HTN (hypertension) I10 Hypercholesterolemia E78.00 Major depressive disorder, recurrent, in full remission F33.42 S/P CABG x 4 Z95.1 Tobacco abuse Z72.0
[2022-09-09] MEDS: acetaminophen 325 mg Tablet 650 MG PO ×2 (13:59→21:20)
[2022-09-09] MEDS: ALPRAZolam 0.5 mg Tablet 1 MG PO ×2 (14:00→21:22)
[2022-09-09] MEDS: baclofen 10 mg Tablet 5 MG PO ×2 (16:31→21:25)
[2022-09-09] MEDS: FUROsemide 20 mg Tablet PO (16:31)
[2022-09-09] MEDS: benzonatate 100 mg Capsule PO ×2 (16:32→21:23)
--- NOTE | 2022-09-09 16:52 | PC.NURSE ---
Shift summary, Levophed titrated down this shift per Dr. Martínez request due to patient stating low bp is WNL for her, bp map okay to be 60 or greater, no longer having pink tinged sputum, per HCP possible for patient to have aspirated some blood from previous dental procedure prior to admission
[2022-09-09] MEDS: atorvastatin 40 mg Tablet 20 MG PO (21:25)
[2022-09-09 22:24] LABS: Add Urine Microscopic? YES; Bilirubin Urine Neg (Negative); Blood Urine 2+ (Negative); Glucose Urine UA Norm (Normal); Ketones Urine Negative (Negative); Leukocyte Esterase Urine 1+ (Negative); Nitrate Urine Negative (Negative); Protein Urine Neg (Negative); Urine Appearance Clear (CLEAR); Urine Color Yellow (Yellow); Urobilinogen Urine Neg (Negative); pH Urine 5 (5-7)
[2022-09-09 22:35] LABS: Add Urine Culture? Yes; Bacteria Urine TRACE /hpf; Squamous Epithelial Cell Urine 0-4 /hpf (0-5)
[2022-09-09 22:37] LABS: Potassium, Radom Urine 31 mmol/L; Urine Random Chloride 135 mmol/L; Urine Random Sodium 112 mmol/L
[2022-09-10] VITALS (46 sets, daily range): BP systolic 72–111; BP diastolic 36–85; PULSE 71–100; RESP 15–40; TEMP 35.9–36.8; O2SAT 87–98
[2022-09-10 03:28] LABS: Basophils # 0.1 10^3/uL (0.0-0.1); Basophils % 0.4 %; Eosinophils # 0.1 10^3/uL (0.0-0.8); Eosinophils % 0.9 %; Hematocrit 28.6 % (37.0-47.0); Hemoglobin 9.1 g/dL (11.5-15.3); Lymphocytes # 1.4 10^3/uL (0.8-4.8); Lymphocytes % 11.3 %; Mean Corpuscular HGB Conc 31.8 g/dL (30.0-36.0); Mean Corpuscular Hemoglobin 30.2 pg (28.0-34.0); Mean Platelet Volume 9.9 fL (7.4-10.4); Monocytes # 0.9 10^3/uL (0.2-0.9); Neutrophils # 9.57 10^3/uL (1.8-7.7); Neutrophils % 75.7 %; Nucleated Red Blood Cells % 0 %; Platelet Count 224 10^3/cmm (130-400); Red Blood Count 3.01 10^6/uL (4.1-5.3); Red Cell Distribution Width 13.1 % (12.1-15.1); White Blood Count 12.7 10^3/uL (4.0-10.0)
[2022-09-10 03:47] LABS: Alanine Aminotransferase 56 U/L (0-33); Albumin Level 2.6 g/dL (3.5-5.2); Alkaline Phosphatase 125 U/L (35-105); Anion Gap 11.6 (5-19); Aspartate Amino Transferase 37 U/L (0-32); Blood Urea Nitrogen 17 mg/dL (8-23); Calcium 7.9 mg/dL (8.5-10.5); Carbon Dioxide 22 mmol/L (22-29); Chloride 107 mmol/L (98-107); Globulin 2.9 g/dL (1.3-4.6); Glomerular Filtration Rate 55.1 mL/min (90-130); Glucose 103 mg/dL (65-115); Osmolality Calculated 286 mOsm/kg (285-295); Potassium 3.6 mmol/L (3.5-5.1); Sodium 137 mmol/L (136-145); Total Bilirubin 0.4 mg/dL (0.15-1.2); Total Protein 5.5 g/dL (6.6-8.7)
[2022-09-10] MEDS: famotidine 20 mg/2 mL INJ IVP ×2 (04:24→16:38)
[2022-09-10] MEDS: clopidogrel 75 mg Tablet PO (05:25)
[2022-09-10] MEDS: aspirin 81 mg EC Tablet PO (05:25)
[2022-09-10] MEDS: acetaminophen 325 mg Tablet 650 MG PO ×3 (05:29→20:17)
--- NOTE | 2022-09-10 05:59 | PC.NURSE ---
Shift Note Frequent safety and comfort rounds continue. Orders and/or nursing care completed as indicated. Patient monitored for response to intervention and treatment(s). Education provided includes blood pressure management. Patient verbalized understanding of teaching. Patient had an uneventful shift, remains alert & oriented x4 on room air. No wounds or skin issues noted at this time. Patient reported pain overnight PRN medication administered & Levophed infusing per protocol please see MAR for details. Will continue to monitor.
[2022-09-10] MEDS: chlorhexidine gluconate 0.12% Btl 473 mL 15 ML MUCOUS MEM ×2 (08:53→16:43)
[2022-09-10] MEDS: baclofen 10 mg Tablet 5 MG PO ×3 (08:53→20:16)
[2022-09-10] MEDS: benzonatate 100 mg Capsule PO ×3 (08:53→20:14)
[2022-09-10] MEDS: ferrous gluconate 324 mg Tablet PO ×2 (08:53→16:43)
[2022-09-10] MEDS: pyridostigmine 60 mg Tablet PO ×4 (08:54→20:14)
[2022-09-10] MEDS: nystatin 100,000 unit/mL UDC 5 mL 100000 UNIT PO ×4 (08:54→20:13)
[2022-09-10] MEDS: ranolazine (12HR) 500 mg Tablet 1000 MG PO ×2 (08:54→16:43)
[2022-09-10] MEDS: midodrine 5 mg TABLET PO ×3 (08:54→20:14)
[2022-09-10] MEDS: TRANYLCYPROMINE 10 MG 30 EACH PO ×2 (09:01→16:40)
--- NOTE | 2022-09-10 09:20 | PC.NURSE ---
Dr. Byrne at bedside, goal for today to try to wean off levophed
--- NOTE | 2022-09-10 12:15 | PC.CHAP ---
Pastoral Care Encounter/Spiritual Assessment Type of Contact [] Declined hiv/aids care nurse visit [] Patient/Family/Request visit [] Outpatient visit [] Follow-up visit [] Physician referral [] Code/Alert [x] Routine visit [] Staff referral [] Actively dying [] Patient sleeping [] Family support [] [] Out of room [] Palliative care [] [x] Receiving care in room [] Pre-surgical visit [] Trauma [] Long length of stay [x] ICU visit [] Other: Relational/Emotional Strength [] Patient feels connected with others/family/visitors/staff [] Distress [] Loneliness/isolation [] Abandonment Spirituality of Patient [] Person of Radha [] Attends Restorationist of their Radha [] Believes in Prayer [] Reads Bible or Christian materials [] There are Spiritual issues to be addressed Drier Feeder Interventions [x] Prayer [] Active listening [] Non-anxious presence [] Spiritual/emotional support [] Crisis/trauma care [] Spiritual counseling [] Bereavement support [] Provided bereavement packet [] Provided Bible/devotional materials [] Provided toy/stuffed animal, coloring book to patient or family member [] Provided Communion [] Anointing/[place] [] Salvation [x] Completed spiritual assessment [] Other: Impact on Illness or Injury [] Angry [] Fearful [] Anxious [] Often cries [] Exhaustion [] Unable to work [] Unable to attend anabaptism [] Unable to walk/stand [] Unable to read [] Unable to drive [] Unable to eat/drink [] Unable to sleep [] Unable to be with family [] Patient intubated [] Other: Summary Time spent with patient
[2022-09-10] MEDS: vancomycin 1,000 MG in sodium chloride 0.9% 250 ML 250 MG IV (13:50)
[2022-09-10] MEDS: ALPRAZolam 0.5 mg Tablet 1 MG PO ×2 (13:53→22:34)
[2022-09-10] MEDS: ipratropium-albuterol 3 mL Neb INHALATION ×2 (14:16→20:03)
--- NOTE | 2022-09-10 20:02 | P.PN_ITS ---
Subjective Subjective: She reports having some pleuritic discomfort in the left side of her chest, right shoulder, denies lightheadedness. Breathing comfortable with nasal cannula. Having minimal cough. Blood pressure soft. Vitals/I&O/Wt Last Vital Signs Temp 98.3 F 09/10/22 04:00 Pulse 79 09/10/22 17:00 Resp 27 H 09/10/22 17:00 BP 108/51 09/10/22 17:00 Pulse Ox 93 09/10/22 17:00 O2 Del Method 09/10/22 14:00 O2 Flow Rate 2 09/10/22 14:00 09/10/22 09/10/22 09/10/22 06:59 14:59 22:59 Intake Total 723.266 / 4001.866 479.121 / 479.121 400 / 879.121 Output Total 1650 / 3250 Balance -926.734 / 751.866 479.121 / 479.121 400 / 879.121 Weight last 48 hrs Weight 84.368 kg Weight 84.822 kg Physical Exam Const: COMMON NORMALS: patient oriented x3 and alert GENERAL APPEARANCE: cooperative ORIENTATION/CONSCIOUSNESS: Yes awake HENMT: COMMON NORMALS: oropharynx normal Neck/C-Spine: COMMON NORMALS: no JVD Resp: COMMON NORMALS: normal respiratory effort and clear to auscultation bilaterally AUSCULTATION: clear to auscultation bilaterally Cardio: COMMON NORMALS: no JVD, regular rhythm, S1 normal heart sound present, S2 normal heart sound present and No murmurs present (Cardio) RHYTHM: regular rhythm HEART SOUNDS: S1 normal heart sound present and S2 normal heart sound present GI: COMMON NORMALS: Normal to inspection, nondistended, normoactive bowel sounds present, Soft to palpation and non-tender PALPATION: Yes Soft to palpation Extremity: COMMON NORMALS: no joint enlargement and no pedal edema Neuro: COMMON NORMALS: patient oriented x3 and moves all extremities SENSORIUM/ORIENTATION: Yes alert Skin: COMMON NORMALS: no rashes or lesions noted GENERAL SKIN EXAM: no rashes or lesions noted Urinary Catheter Management: Santa: Cath Placed During This Visit: yes Reason for Continuing Indwelling Catheter: Accurate Measurement of Urinary Output in Critically Ill Patients Urinary Catheter Date of Insertion: 09/08/22 Urinary Catheter Time of Insertion: 15:00 Data : 09/10/22 02:20 09/10/22 02:20 Micro: Microbiology 09/08/22 13:37 Gram Stain - Final Sputum - Expectorated Sputum Sputum Culture - Preliminary Gram Negative Rods 09/09/22 21:40 Urine Culture - Preliminary Urine,Clean Catch 09/08/22 14:02 Legionella Urinary Antigen - Final Unknown Source A&P Assessment and plan (1) Septic shock: Weaning down on Levophed and weaned off later today, but blood pressure soft, maps around 60-65 mmHg. Monitor in ICU for now in case needs to be restarted. Discussed with her continue treatment with antibiotics for pneumonia. I see that random cortisol level was checked and appropriate. TSH normal. (2) Pneumonia: Urine bacterial antigens negative. Follow-up sputum culture, noted moderate gram-negative rods. Continue empiric antibiotic coverage. Qualifiers: Laterality: left Lung location: lower lobe of lung (3) GEOVANNY (acute kidney injury): Improving. (4) COPD (chronic obstructive pulmonary disease): (5) Transaminitis: (6) Orthostatic hypotension: (7) Coronary artery disease: (8) HTN (hypertension): (9) Hypercholesterolemia: (10) Major depressive disorder, recurrent, in full remission: (11) S/P CABG x 4: (12) Tobacco abuse: Plan Orthostatic hypotension: Midodrine, pyridostigmine. Monitor for interaction with tranylcypromine. Hypoxia: So far has been steadily on 2 L nasal cannula. Continue treatment of pneumonia. Transaminitis: Most likely secondary sepsis as well. Improving. CAD: Post CABG: Continue with home dose of aspirin, Plavix, statin. We will hold off on beta-mara now given being on Levophed. Denies any current chest pain. Last echocardiogram shows EF of 59% grade 1 diastolic dysfunction. Analgesia: Tylenol as needed Glycemic control: Not needed. A1c 5. Nutrition: Mechanical soft diet CODE STATUS: Full code. PUD prophylaxis: Famotidine for PUD prophylaxis DVT prophylaxis: SCDs for DVT prophylaxis. Discharge planning: Home with caregiver once medically cleared This documentation was created by [employer] primary care coordinator software. Every effort was made to ensure accuracy of primary care coordinator. Any obvious errors or omissions should be clarified with the author of the document. Attestations Medical Necessity Statement*: Continue admission for assessment management of septic shock pneumonia, and lady with severe underlying orthostatic hypotension. CAD. Critical Care Time: The high probability of a clinically significant, sudden or life threatening deterioration of the patient's hemodynamic, infectious disease, pulmonary system(s) required my full and direct attention, intervention and personal management. The critical care time is as shown. This time is in addition to time spent performing any reported procedures but includes the following: x Data and vital sign review and interpretation x Patient assessment, examination and intervention x Documentation x Medication orders and management Critical Care Time (min): 35 Coding Level of Care Code Acute Armed Security Officer for g Fwd Diagnoses Septic shock A41.9; R65.21 Pneumonia J18.9 Laterality: left Lung location: lower lobe of lung GEOVANNY (acute kidney injury) N17.9 COPD (chronic obstructive pulmonary disease) J44.9 Transaminitis R74.01 Orthostatic hypotension I95.1 Coronary artery disease I25.10 HTN (hypertension) I10 Hypercholesterolemia E78.00 Major depressive disorder, recurrent, in full remission F33.42 S/P CABG x 4 Z95.1 Tobacco abuse Z72.0
[2022-09-10] MEDS: budesonide 0.5 mg/2 mL Neb INHALATION (20:03)
--- NOTE | 2022-09-10 20:13 | USCV_ITS ---
Rebecca Coombs Age: 67 Gender: F : 1955 Exam Date: 09/10/2022 21:30 Ordering Phys: Jamey Hernandez MD Technologist: SHA Exam Location: [facility] [place] Indication: persistent hypotension BP: 111 / 64 HR: 71 Rhythm: Sinus Technical Quality: Adequate MEASUREMENTS (Male / Female) Normal Values 2D ECHO LV Diastolic Diameter PLAX 4.0 cm 4.2 - 5.9 / 3.9 - 5.3 cm LV Systolic Diameter PLAX 2.9 cm IVS Diastolic Thickness 2.1 cm 0.6 - 1.0 / 0.6 - 0.9 cm IVS Systolic Thickness 2.5 cm LVPW Diastolic Thickness 1.7 cm 0.6 - 1.0 / 0.6 - 0.9 cm LVPW Systolic Thickness 1.6 cm LVOT Diameter 2.0 cm LV Ejection Fraction 2D Teich 53.1 % LV Ejection Fraction MOD 2C 48.9 % LV Ejection Fraction 2C AL 47.8 % LA Diameter 5.3 cm LA Width 5.0 cm LA Height 6.4 cm RA Width 4.5 cm RA Height 5.1 cm Aorta at Sinotubular Diameter 3.3 cm IVC Diameter 2.3 cm M-MODE Aortic Annulus Diameter 3.9 cm LA Ao Ratio MM 1.5 MV E Point Septal Separation 0.6 cm DOPPLER AV Peak Velocity 137.0 cm/s LVOT Peak Velocity 132.0 cm/s AV Area Cont Eq vti 3.2 cm squared AV Area Cont Eq pk 3.1 cm squared MV Area PHT 3.0 cm squared Mitral E to A Ratio 1.1 MV E' Velocity 68.0 cm/s Mitral E to MV E' Ratio 25.6 Mitral E to LV E' Lateral Ratio 27.2 Mitral E to LV E' Septal Ratio 24.2 TR Peak Velocity 329.3 cm/s TR Peak Gradient 43.4 mmHg TV Peak E Velocity 59.0 cm/s Right Atrial Pressure 10.0 mmHg Pulmonary Artery Systolic Pressu 53.4 mmHg PV Peak Velocity 80.0 cm/s RV Acceleration Time 0.1 s RV Ejection Time 0.4 s RV AcT/ET 0.2 FINDINGS Left Ventricle Left ventricle is normal in size. LV systolic function is mildly dilated with EF of 45-50%. Mild global hypokinesis. Right Ventricle Normal in size and function Right Atrium Normal in size Left Atrium Dilated Mitral Valve Mild mitral annular calcification. Mild mitral regurgitation Aortic Valve Aortic valve is thickened. No significant stenosis or regurgitation. Tricuspid Valve Mild to moderate tricuspid regurgitation. RVSP is 55-60 mmHg. Moderate pulmonary hypertension Pulmonic Valve Mild pulmonic regurgitation Pericardium Grossly normal Aorta Normal IVC Dilated CONCLUSIONS LV systolic function is mildly reduced with EF of 45 to 50%. Mild global hypokinesis Dilated left atrium Mild mitral annular calcification. Mild mitral regurgitation Mild to moderate tricuspid regurgitation. Moderate pulmonary hypertension Mild pulmonic regurgitation Compared to prior echocardiogram from 01/2022, LV systolic function appears to have decreased slightly. Jaiden Feliciano MD (Electronically Signed) Final Date: 11 September 2022 10:44 S
[2022-09-10] MEDS: atorvastatin 40 mg Tablet 20 MG PO (20:15)
[2022-09-11] VITALS (23 sets, daily range): BP systolic 91–110; BP diastolic 51–64; PULSE 68–82; RESP 16–29; TEMP 36.3–37.1; O2SAT 90–95
[2022-09-11] MEDS: ipratropium-albuterol 3 mL Neb INHALATION ×4 (03:02→20:07)
[2022-09-11 04:16] LABS: Basophils % 0.5 %; Eosinophils # 0.1 10^3/uL (0.0-0.8); Eosinophils % 1.7 %; Hematocrit 27.7 % (37.0-47.0); Hemoglobin 8.6 g/dL (11.5-15.3); Lymphocytes # 1.3 10^3/uL (0.8-4.8); Lymphocytes % 17.4 %; Mean Corpuscular Hemoglobin 30.4 pg (28.0-34.0); Mean Corpuscular Volume 97.9 fl (81-99); Mean Platelet Volume 10.1 fL (7.4-10.4); Monocytes # 0.7 10^3/uL (0.2-0.9); Monocytes % 8.5 %; Neutrophils # 5.46 10^3/uL (1.8-7.7); Neutrophils % 70.7 %; Nucleated Red Blood Cells % 0 %; Platelet Count 213 10^3/cmm (130-400); Red Blood Count 2.83 10^6/uL (4.1-5.3); Red Cell Distribution Width 13.2 % (12.1-15.1); White Blood Count 7.7 10^3/uL (4.0-10.0)
[2022-09-11 04:43] LABS: Alanine Aminotransferase 40 U/L (0-33); Albumin Level 2.5 g/dL (3.5-5.2); Alkaline Phosphatase 105 U/L (35-105); Anion Gap 13.5 (5-19); Aspartate Amino Transferase 26 U/L (0-32); Blood Urea Nitrogen 15 mg/dL (8-23); Calcium 8.6 mg/dL (8.5-10.5); Carbon Dioxide 22 mmol/L (22-29); Chloride 106 mmol/L (98-107); Globulin 3.1 g/dL (1.3-4.6); Glomerular Filtration Rate 71.3 mL/min (90-130); Glucose 76 mg/dL (65-115); Osmolality Calculated 286 mOsm/kg (285-295); Potassium 3.5 mmol/L (3.5-5.1); Sodium 138 mmol/L (136-145); Total Bilirubin 0.4 mg/dL (0.15-1.2); Total Protein 5.6 g/dL (6.6-8.7)
[2022-09-11] MEDS: famotidine 20 mg/2 mL INJ IVP ×2 (04:47→16:50)
[2022-09-11] MEDS: clopidogrel 75 mg Tablet PO (04:59)
[2022-09-11] MEDS: aspirin 81 mg EC Tablet PO (04:59)
[2022-09-11] MEDS: acetaminophen 325 mg Tablet 650 MG PO ×3 (04:59→23:12)
--- NOTE | 2022-09-11 05:49 | PC.NURSE ---
Transfer Note Patient transferred to med-surg room 279-1 from ICU via wheelchair. Handoff report give to PRICILA Mosqueda. Patient oriented to environment and equipment. Covering service notified. Orders reviewed and will continue to monitor. Patient transferred on room air and is alert and oriented x4. No wounds/skin issues noted at time of transfer. All belongings taken with patient and placed at bedside.
--- NOTE | 2022-09-11 06:24 | PC.NURSE ---
TRANSFER NOTE Pt received to floor via wheelchair from ICU. Is alert and oriented. c/o pain in right shoulder. Says she is supposed to be having surgery on it soon. Santa in place. knotting machine operator applied. VS checked and oriented to new room.
[2022-09-11] MEDS: docusate sodium 100 mg Capsule PO (08:50)
[2022-09-11] MEDS: baclofen 10 mg Tablet 5 MG PO ×3 (08:51→20:46)
[2022-09-11] MEDS: benzonatate 100 mg Capsule PO ×3 (08:51→20:46)
[2022-09-11] MEDS: pyridostigmine 60 mg Tablet PO ×4 (08:51→20:46)
[2022-09-11] MEDS: ferrous gluconate 324 mg Tablet PO ×2 (08:51→17:34)
[2022-09-11] MEDS: midodrine 5 mg TABLET PO ×3 (08:51→20:46)
[2022-09-11] MEDS: nystatin 100,000 unit/mL UDC 5 mL 100000 UNIT PO ×4 (08:52→20:46)
[2022-09-11] MEDS: chlorhexidine gluconate 0.12% Btl 473 mL 15 ML MUCOUS MEM ×2 (08:52→17:33)
[2022-09-11] MEDS: ranolazine (12HR) 500 mg Tablet 1000 MG PO ×2 (08:52→17:34)
[2022-09-11] MEDS: TRANYLCYPROMINE 10 MG 30 EACH PO ×2 (09:03→16:51)
[2022-09-11] MEDS: budesonide 0.5 mg/2 mL Neb INHALATION ×2 (10:43→20:08)
[2022-09-11 12:32] LABS: Vancomycin Trough 6.2 ug/mL (10-15)
[2022-09-11] MEDS: vancomycin 1,000 MG in sodium chloride 0.9% 250 ML 250 MG IV (13:14)
--- NOTE | 2022-09-11 14:26 | P.PN_ITS ---
Subjective Subjective: She is overall doing better. Oxygenation is improving. Blood pressure appears to be improving. She is having minimal cough. Denies chest pain. Discussed with her that she is not currently resumed on beta-mara, she understands it is because of severe orthostatic hypotension, recently compli cated also by hypotension associated with pneumonia. She has worked with physical therapy and feels encouraged that she will not need protracted therapy. Vitals/I&O/Wt Last Vital Signs Temp 98.4 F 09/11/22 11:38 Pulse 68 09/11/22 11:38 Resp 20 H 09/11/22 11:38 BP 110/56 09/11/22 11:38 Pulse Ox 94 09/11/22 11:38 O2 Del Method 09/11/22 11:38 O2 Flow Rate 2 09/11/22 10:46 09/10/22 09/11/22 09/11/22 22:59 06:59 14:59 Intake Total 573.406 / 1302.527 400 / 1702.527 700 / 700 Output Total 750 / 750 Balance 573.406 / 1302.527 -350 / 952.527 700 / 700 Weight last 48 hrs Weight 93.304 kg Weight 84.368 kg Physical Exam Const: COMMON NORMALS: patient oriented x3 and alert GENERAL APPEARANCE: cooperative ORIENTATION/CONSCIOUSNESS: Yes awake HENMT: COMMON NORMALS: oropharynx normal Neck/C-Spine: COMMON NORMALS: no JVD Resp: COMMON NORMALS: normal respiratory effort and clear to auscultation bilaterally AUSCULTATION: clear to auscultation bilaterally Cardio: COMMON NORMALS: no JVD, regular rhythm, S1 normal heart sound present, S2 normal heart sound present and No murmurs present (Cardio) RHYTHM: regular rhythm HEART SOUNDS: S1 normal heart sound present and S2 normal heart sound present GI: COMMON NORMALS: Normal to inspection, nondistended, normoactive bowel sounds present, Soft to palpation and non-tender PALPATION: Yes Soft to palpation Extremity: COMMON NORMALS: no joint enlargement and no pedal edema Neuro: COMMON NORMALS: patient oriented x3 and moves all extremities SENSORIUM/ORIENTATION: Yes alert Skin: COMMON NORMALS: no rashes or lesions noted GENERAL SKIN EXAM: no rashes or lesions noted Urinary Catheter Management: Santa: Cath Placed During This Visit: yes Reason for Continuing Indwelling Catheter: Acute Urinary Retention or Obstruction Urinary Catheter Date of Insertion: 09/08/22 Urinary Catheter Time of Insertion: 15:00 Data : 09/11/22 03:05 09/11/22 03:05 Micro: Microbiology 09/08/22 13:37 Gram Stain - Final Sputum - Expectorated Sputum Sputum Culture - Preliminary Gram Negative Rods 09/09/22 21:40 Urine Culture - Final Urine,Clean Catch A&P Assessment and plan (1) Septic shock: Blood pressure soft, septic shock resolved. Weaned off pressor, blood pressure soft, but maintaining, has not been resumed on beta-mara. Discussed with her for now we will hold off on beta-mara entirely. Continues on midodrine, appear to stick mean. TTE limited study assessed due to low blood pressures, noted mild general decrease in ejection fraction compared to prior. Follow-up with cardiology. Monitor blood pressure, reassess with PT, if doing well, she states would like to avoid oxygen if possible, but is agreeable to home O2 evaluation. Weaning down on Levophed and weaned off later today, but blood pressure soft, maps around 60-65 mmHg. Monitor in ICU for now in case needs to be restarted. Discussed with her continue treatment with antibiotics for pneumonia. I see that random cortisol level was checked and appropriate. TSH normal. (2) Orthostatic hypotension: Continue midodrine, pyridostigmine as tolerating. (3) Pneumonia: Urine bacterial antigens negative. Follow-up sputum culture, noted moderate gram-negative rods. Follow-up culture. #2 PCR has been requested, pending. Continue empiric antibiotic coverage. Qualifiers: Laterality: left Lung location: lower lobe of lung (4) GEOVANNY (acute kidney injury): Improving. (5) COPD (chronic obstructive pulmonary disease): (6) Transaminitis: (7) Coronary artery disease: Mild decrease in overall ejection fraction. Follow-up with cardiology. (8) HTN (hypertension): (9) Hypercholesterolemia: (10) Major depressive disorder, recurrent, in full remission: (11) S/P CABG x 4: (12) Tobacco abuse: Plan Orthostatic hypotension: Midodrine, pyridostigmine. Monitor for interaction with tranylcypromine. Hypoxia: Weaning off oxygen. Continue treatment of pneumonia. Home O2 eval prior to discharge home. Transaminitis: Most likely secondary sepsis as well. Resolving. CAD: Post CABG: Continue with home dose of aspirin, Plavix, statin. We will hold off on beta-mara now given being on Levophed. Denies any current chest pain. Last echocardiogram shows EF of 59% grade 1 diastolic dysfunction. Analgesia: Tylenol as needed Glycemic control: Not needed. A1c 5. Nutrition: Mechanical soft diet CODE STATUS: Full code. PUD prophylaxis: Famotidine for PUD prophylaxis DVT prophylaxis: SCDs for DVT prophylaxis. Discharge planning: Home with caregiver once medically cleared This documentation was created by [employer] personal care home administrator software. Every effort was made to ensure accuracy of personal care home administrator. Any obvious errors or omissions should be clarified with the author of the document. Attestations Medical Necessity Statement*: Continue admission for reassessment of blood pressures after recovery from septic shock complicated by severe orthostatic hypotension at baseline, follow-up respiratory cultures with pneumonia, preparation for discharge. Coding Level of Care Code Acute High School Guidance Counselor for [facility] Fwd Diagnoses Septic shock A41.9; R65.21 Orthostatic hypotension I95.1 Pneumonia J18.9 Laterality: left Lung location: lower lobe of lung GEOVANNY (acute kidney injury) N17.9 COPD (chronic obstructive pulmonary disease) J44.9 Transaminitis R74.01 Coronary artery disease I25.10 HTN (hypertension) I10 Hypercholesterolemia E78.00 Major depressive disorder, recurrent, in full remission F33.42 S/P CABG x 4 Z95.1 Tobacco abuse Z72.0
--- NOTE | 2022-09-11 14:41 | PC.SOCIAL ---
IMM Update pg 2 of IMM updated and reviewed w/ patient. Copy provided. Copy dated, initialed and placed in chart.
--- NOTE | 2022-09-11 15:11 | PC.NURSE ---
Patient is Very Unsteady today on her feet. I would use a minimum *1 assist on her
[2022-09-11] MEDS: ALPRAZolam 0.5 mg Tablet 1 MG PO ×2 (15:22→23:12)
[2022-09-11] MEDS: atorvastatin 40 mg Tablet 20 MG PO (20:46)
[2022-09-12] VITALS (8 sets, daily range): BP systolic 92; BP diastolic 54–55; PULSE 71–82; RESP 18–22; TEMP 36.4; O2SAT 83–94
[2022-09-12] MEDS: ipratropium-albuterol 3 mL Neb INHALATION ×2 (03:06→09:52)
[2022-09-12] MEDS: famotidine 20 mg/2 mL INJ IVP (04:56)
[2022-09-12] MEDS: clopidogrel 75 mg Tablet PO (04:57)
[2022-09-12] MEDS: aspirin 81 mg EC Tablet PO (04:57)
[2022-09-12] MEDS: vancomycin 1,000 MG in sodium chloride 0.9% 250 ML 250 MG IV (06:20)
[2022-09-12 06:41] LABS: Basophils % 0.5 %; Eosinophils # 0.2 10^3/uL (0.0-0.8); Eosinophils % 3.9 %; Hematocrit 25.4 % (37.0-47.0); Hemoglobin 8.1 g/dL (11.5-15.3); Lymphocytes # 1.4 10^3/uL (0.8-4.8); Lymphocytes % 24.9 %; Mean Corpuscular HGB Conc 31.9 g/dL (30.0-36.0); Mean Corpuscular Hemoglobin 30.2 pg (28.0-34.0); Mean Corpuscular Volume 94.8 fl (81-99); Monocytes # 0.7 10^3/uL (0.2-0.9); Monocytes % 12.3 %; Neutrophils % 57.9 %; Nucleated Red Blood Cells % 0 %; Platelet Count 260 10^3/cmm (130-400); Red Blood Count 2.68 10^6/uL (4.1-5.3); Red Cell Distribution Width 13.2 % (12.1-15.1); White Blood Count 5.7 10^3/uL (4.0-10.0)
[2022-09-12 06:56] LABS: Anion Gap 14.2 (5-19); Blood Urea Nitrogen 9 mg/dL (8-23); Carbon Dioxide 22 mmol/L (22-29); Chloride 106 mmol/L (98-107); Glomerular Filtration Rate 83.2 mL/min (90-130); Glucose 88 mg/dL (65-115); Osmolality Calculated 286 mOsm/kg (285-295); Potassium 3.2 mmol/L (3.5-5.1); Sodium 139 mmol/L (136-145)
--- NOTE | 2022-09-12 09:16 | PC.CHAP ---
Pastoral Care Encounter/Spiritual Assessment Type of Contact [x] Declined solid fiber paster operator visit [] Patient/Family/Request visit [] Outpatient visit [] Follow-up visit [] Physician referral [] Code/Alert [x] Routine visit [] Staff referral [] Actively dying [] Patient sleeping [] Family support [] [] Out of room [] Palliative care [] [] Receiving care in room [] Pre-surgical visit [] Trauma [] Long length of stay [] ICU visit [] Other: Relational/Emotional Strength [] Patient feels connected with others/family/visitors/staff [] Distress [] Loneliness/isolation [] Abandonment Spirituality of Patient [] Person of Radha [] Attends Judaism of their Radha [] Believes in Prayer [] Reads Bible or Yazidism materials [] There are Spiritual issues to be addressed Decorating Machine Operator Interventions [] Prayer [] Active listening [] Non-anxious presence [] Spiritual/emotional support [] Crisis/trauma care [] Spiritual counseling [] Bereavement support [] Provided bereavement packet [] Provided Bible/devotional materials [] Provided toy/stuffed animal, coloring book to patient or family member [] Provided Communion [] Anointing/[place] [] Salvation [] Completed spiritual assessment [] Other: Impact on Illness or Injury [] Angry [] Fearful [] Anxious [] Often cries [] Exhaustion [] Unable to work [] Unable to attend rastafarian [] Unable to walk/stand [] Unable to read [] Unable to drive [] Unable to eat/drink [] Unable to sleep [] Unable to be with family [] Patient intubated [] Other: Summary Time spent with patient
[2022-09-12] MEDS: budesonide 0.5 mg/2 mL Neb INHALATION (09:52)
[2022-09-12] MEDS: baclofen 10 mg Tablet 5 MG PO (09:54)
[2022-09-12] MEDS: ranolazine (12HR) 500 mg Tablet 1000 MG PO (09:55)
[2022-09-12] MEDS: nystatin 100,000 unit/mL UDC 5 mL 100000 UNIT PO (09:55)
[2022-09-12] MEDS: pyridostigmine 60 mg Tablet PO (09:55)
[2022-09-12] MEDS: ferrous gluconate 324 mg Tablet PO (09:55)
[2022-09-12] MEDS: chlorhexidine gluconate 0.12% Btl 473 mL 15 ML MUCOUS MEM (09:56)
[2022-09-12] MEDS: benzonatate 100 mg Capsule PO (09:56)
[2022-09-12] MEDS: midodrine 5 mg TABLET PO (09:56)
[2022-09-12] MEDS: potassium chloride ER 20 mEq Tablet 40 MEQ PO (11:21)
--- NOTE | 2022-09-12 11:21 | P.DS_ITS ---
Discharge Providers Date of Admission: 09/08/22 17:07 Date of Discharge: September 12, 2022 Attending Provider at Admission: Enoch Martínez MD Attending Provider at Discharge: Jamey Hernandez Primary Care Provider: Venancio Mota MD Diagnoses at Discharge Discharge Diagnosis (1) Septic shock: Status: Acute (2) Orthostatic hypotension: Status: Acute (3) Pneumonia: Status: Acute Qualifiers: Laterality: left Lung location: lower lobe of lung (4) GEOVANNY (acute kidney injury): Status: Acute (5) COPD (chronic obstructive pulmonary disease): Status: Acute (6) Transaminitis: Status: Acute (7) Coronary artery disease: Status: Acute (8) HTN (hypertension): Status: Acute (9) Hypercholesterolemia: Status: Acute (10) Major depressive disorder, recurrent, in full remission: Status: Acute (11) S/P CABG x 4: Status: Acute (12) Tobacco abuse: Status: Acute Reason for Visit Reason for Visit: POSS PNEUMONIA; COUGHING UP BLOOD Hospital Course Hospital Course Pleasant 67-year-old lady with history of CAD, CABG, orthostatic hypotension, soft baseline blood pressures, diastolic congestive heart failure, HTN, HLD, COPD other chronic conditions was admitted after presenting due to low oxygen level, fevers, 2 days prior also had dentures fitted with some residual bleeding. On presentation in sepsis and septic shock, with pneumonia, and organ injury with acute kidney injury, transaminitis, with hypoxia, required pressor support, received IV fluid, treated with Zosyn, vancomycin, antibiotic escalated to Primaxin and vancomycin. CT angiogram of the chest showed left upper and lower lobe pneumonia. No PE. With treatment septic shock gradually improved. She was started on midodrine, Prostigmin to assist with orthostatic hypotension. Weaned off pressors. Maintaining oxygen saturations on 2 L nasal cannula. Urine bacterial antigens negative. MRSA PCR negative. Sputum culture eventually grew Pseudomonas resistant to aztreonam, cefepime and Zosyn. She is overall feeling much better, intermittently starting to wean down to room air at rest, but does still require oxygen on home O2 evaluation. This is set up for her discharge. Please reassess her recovery from pneumonia, reassess blood pressures and orthostatic hypotension. Confirm recovery from GEOVANNY, resolution of transaminitis. Follow-up on chronic conditions. Physical Exam Narrative: Sitting up at edge of bed, having breakfast. Const: COMMON NORMALS: patient oriented x3 and alert GENERAL APPEARANCE: cooperative ORIENTATION/CONSCIOUSNESS: Yes awake HENMT: COMMON NORMALS: oropharynx normal Neck/C-Spine: COMMON NORMALS: no JVD Resp: COMMON NORMALS: normal respiratory effort and clear to auscultation bilaterally AUSCULTATION: clear to auscultation bilaterally Cardio: COMMON NORMALS: no JVD, regular rhythm, S1 normal heart sound present, S2 normal heart sound present and No murmurs present (Cardio) RHYTHM: regular rhythm HEART SOUNDS: S1 normal heart sound present and S2 normal heart sound present GI: COMMON NORMALS: Normal to inspection, nondistended, normoactive bowel sounds present, Soft to palpation and non-tender PALPATION: Yes Soft to palpation Extremity: COMMON NORMALS: no joint enlargement and no pedal edema Neuro: COMMON NORMALS: patient oriented x3 and moves all extremities SENSORIUM/ORIENTATION: Yes alert Skin: COMMON NORMALS: no rashes or lesions noted GENERAL SKIN EXAM: no rashes or lesions noted Urinary Catheter Management: [place]: Cath Placed During This Visit: yes Reason for Continuing Indwelling Catheter: Accurate Measurement of Urinary Output in Critically Ill Patients Urinary Catheter Date of Insertion: 09/08/22 Urinary Catheter Time of Insertion: 15:00 Discharge Data Studies Completed and Pending Completed Studies During Hospitalization Category Date Time Status CTA chest [CT angio chest PE protcl [id number]] Stat Cat Scan 09/08/22 14:43 Completed XR chest 1V portable [id number] Stat Exams 09/08/22 11:56 Completed CV. echo limited [id number] Routine Ultrasound 09/10/22 20:13 Completed Pending at discharge Category Date Time Status Blood Culture Stat Lab 09/08/22 12:32 Results Complete Blood Count w/Auto AM LABS Lab 09/13/22 04:00 Ordered Vancomycin Trough Timed Lab 09/13/22 18:00 Ordered Radiology Impressions Chest X-Ray 09/08/22 11:56 IMPRESSION: There are patchy infiltrates in the mid to lower left lung field consistent with pneumonia. Chest CTA 09/08/22 14:43 IMPRESSION: Left upper and lower lobe pneumonia. Laboratory Results WBC 5.7 10^3/uL (4.0-10.0) 09/12/22 06:17 RBC 2.68 10^6/uL (4.1-5.3) L 10/12/22 06:17 Hgb 8.1 g/dL (11.5-15.3) L 09/12/22 06:17 Hct 25.4 % (37.0-47.0) L 09/12/22 06:17 MCV 94.8 fl (81-99) 09/12/22 06:17 MCH 30.2 pg (28.0-34.0) 09/12/22 06:17 MCHC 31.9 g/dL (30.0-36.0) 09/12/22 06:17 RDW 13.2 % (12.1-15.1) 09/12/22 06:17 Plt Count 260 10^3/cmm (130-400) 09/12/22 06:17 MPV 10.0 fL (7.4-10.4) 09/12/22 06:17 Neut % (Auto) 57.9 % 09/12/22 06:17 Lymph % (Auto) 24.9 % 09/12/22 06:17 [place] % (Auto) 12.3 % 09/12/22 06:17 Eos % (Auto) 3.9 % 09/12/22 06:17 Baso % (Auto) 0.5 % 09/12/22 06:17 Neut # (Auto) 3.30 10^3/uL (1.8-7.7) 09/12/22 06:17 Lymph # (Auto) 1.4 10^3/uL (0.8-4.8) 09/12/22 06:17 [place] # (Auto) 0.7 10^3/uL (0.2-0.9) 09/12/22 06:17 Eos # (Auto) 0.2 10^3/uL (0.0-0.8) 09/12/22 06:17 Baso # (Auto) 0.0 10^3/uL (0.0-0.1) 09/12/22 06:17 Nucleated RBC % (auto) 0 % 09/12/22 06:17 Nucleated RBCs # 0.0 /100WBC 09/12/22 06:17 PT 13.10 SECONDS (12.1-14.9) 09/08/22 12:06 INR 0.97 (0.8-1.2) 09/08/22 12:06 APTT 24.2 SECONDS (23.9-36.7) 09/08/22 12:06 D-Dimer 5.39 ug/mIFEU (0-0.59) H 09/08/22 12:06 Specimen Type Arterial 09/08/22 12:35 Sample Site Radial, left 09/08/22 12:35 ABG pH 7.37 (7.35-7.45) 09/08/22 12:35 ABG pCO2 38.9 mmHg (35-45) 09/08/22 12:35 ABG pO2 70.9 mmHg (80.0-100.0) L 09/08/22 12:35 ABG HCO3 22.2 mmol/L (22-26) 09/08/22 12:35 ABG O2 Saturation 94.7 09/08/22 12:35 ABG Base Excess -2.9 mmol/L (-2.0-2.0) L 09/08/22 12:35 Elmer Test Pos 09/08/22 12:35 A-a O2 Gradient 10.8 mmHg (5-10) H 09/08/22 12:35 Hematocrit 34.9 % (37-47) L 09/08/22 12:35 Hgb O2 Saturation 93.0 % (95-100) L 09/08/22 12:35 Carboxyhemoglobin 1.2 %THgb (0.4-20.1) 09/08/22 12:35 Methemoglobin 0.6 % (0.4-1.5) 09/08/22 12:35 Total Hemoglobin 11.4 g/dL (12-16) L 09/08/22 12:35 Sodium 136.0 mmol/L (131-143) 09/08/22 12:35 Potassium 3.7 mmol/L (3.5-5.0) 09/08/22 12:35 Glucose 99.0 mg/dL (70-115) 09/08/22 12:35 Ionized Calcium 1.2 mmol/L (1.1-1.4) 09/08/22 12:35 O2 Delivery Device Nc 09/08/22 12:35 O2 Liters/Min 2.0 % 09/08/22 12:35 FiO2 28.0 % 09/08/22 12:35 Thermit Welding Machine Operator ID Cak 09/08/22 12:35 Sodium 139 mmol/L (136-145) 09/12/22 06:17 Potassium 3.2 mmol/L (3.5-5.1) L 09/12/22 06:17 Chloride 106 mmol/L (98-107) 09/12/22 06:17 Carbon Dioxide 22 mmol/L (22-29) 09/12/22 06:17 Anion Gap 14.2 (5-19) 09/12/22 06:17 BUN 9 mg/dL (8-23) 09/12/22 06:17 Creatinine 0.7 mg/dL (0.5-0.9) 09/12/22 06:17 GFR Calculation 83.2 mL/min (90-130) L 09/12/22 06:17 Glucose 88 mg/dL (65-115) 09/12/22 06:17 Estimat Average Glucose 108 09/09/22 05:00 Hemoglobin A1c 5.4 % (4.0-6.0) 09/09/22 05:00 Calculated Osmolality 286 mOsm/kg (285-295) 09/12/22 06:17 Lactic Acid 1.4 mmol/L (0.5-2.2) 09/08/22 12:50 Calcium 9.0 mg/dL (8.5-10.5) 09/12/22 06:17 Phosphorus 2.6 mg/dL (2.5-4.5) 09/09/22 05:00 Magnesium 2.0 mg/dL (1.7-2.3) 09/09/22 05:00 Iron 30 ug/dL (37-145) L 09/08/22 12:06 TIBC 328 mcg/dl 09/08/22 12:06 % Saturation 9.1 % (20-50) L 09/08/22 12:06 Unsat Iron Binding 298 ug/dL (112-347) 09/08/22 12:06 Total Bilirubin 0.4 mg/dL (0.15-1.2) 09/11/22 03:05 AST 26 U/L (0-32) 09/11/22 03:05 ALT 40 U/L (0-33) H 09/11/22 03:05 Alkaline Phosphatase 105 U/L (35-105) 09/11/22 03:05 C-Reactive Protein 19.5 mg/L (0.0-4.9) H 09/08/22 12:06 NT-Pro-B Natriuret Pep 4183 pg/mL (0-125) H 09/08/22 12:06 Total Protein 5.6 g/dL (6.6-8.7) L 09/11/22 03:05 Albumin 2.5 g/dL (3.5-5.2) L 09/11/22 03:05 Globulin 3.1 g/dL (1.3-4.6) 09/11/22 03:05 Triglycerides 47 mg/dL (0-150) 09/09/22 05:00 Cholesterol 129 mg/dL (0-200) 09/09/22 05:00 LDL Cholesterol, Calc 70 mg/dL (50-129) 09/09/22 05:00 Total VLDL Cholesterol 9 mg/dL (0-30) 09/09/22 05:00 HDL Cholesterol 50 mg/dL (60-100) L 09/09/22 05:00 Cholesterol/HDL Ratio 2.58 mg/dL (0.0-4.40) 09/09/22 05:00 Vitamin B12 1010 pg/mL (232-1245) 09/08/22 12:06 Folate > 20.0 ng/mL (4.8-37.3) 09/08/22 12:06 Procalcitonin 7.05 ng/mL (0-0.5) H 09/08/22 12:06 TSH 1.16 uIU/mL (0.27-4.20) 09/08/22 12:06 Random Cortisol 42.23 ug/dL (2.47-19.5) H 09/08/22 12:06 Urine Color Yellow (Yellow) 09/09/22 21:40 Urine Appearance Clear (CLEAR) 09/09/22 21:40 Urine pH 5 (5-7) 09/09/22 21:40 Ur Specific [place] 1.010 (1.005-1.030) 09/09/22 21:40 Urine Protein Neg (Negative) 09/09/22 21:40 Urine Glucose (UA) Norm (Normal) 09/09/22 21:40 Urine Ketones Negative (Negative) 09/09/22 21:40 Urine Blood 2+ (Negative) H 09/09/22 21:40 Urine Nitrate Negative (Negative) 09/09/22 21:40 Urine Bilirubin Neg (Negative) 09/09/22 21:40 Urine Urobilinogen Neg mg/dL (Negative) 09/09/22 21:40 Ur Leukocyte Esterase 1+ (Negative) H 09/09/22 21:40 Urine RBC 5-10 /hpf (0-2) H 09/09/22 21:40 Urine WBC 10-15 /hpf (0-5) H 09/09/22 21:40 Ur Eosinophil Smear 0 (0-0) 09/08/22 14:02 Ur Squamous Epith Cells 0-4 /hpf (0-5) H 09/09/22 21:40 Amorphous Sediment Not Reportable 09/09/22 21:40 Urine Bacteria Trace /hpf (NONE) 09/09/22 21:40 Urine Eosinophils No eosinophils seen 09/08/22 14:02 Ur Random Sodium 112 mmol/L 09/09/22 21:40 Ur Random Potassium 31 mmol/L 09/09/22 21:40 Ur Random Chloride 135 mmol/L 09/09/22 21:40 Vancomycin Trough 6.2 ug/mL (10-15) L 09/11/22 11:35 Coronavirus 229E (PCR) Not detected (NOT DETECT) 09/08/22 13:44 SARS-CoV-2 (PCR) Not detected (NOT DETECT) 09/08/22 13:44 Vitals Last Vital Signs Temp 97.6 F 09/12/22 04:00 Pulse 75 09/12/22 10:04 Resp 18 09/12/22 10:04 BP 92/55 09/12/22 08:00 Pulse Ox 87 L 09/12/22 10:09 O2 Del Method 09/12/22 10:04 O2 Flow Rate 2 09/12/22 10:09 Discharge Plan Discharge Patient Disposition: Home Condition: Stable Prescriptions: New midodrine 5 mg Tablet 5 mg PO TID 90 Days Qty: 270 0RF pyridostigmine bromide 60 mg Tablet 60 mg PO QID 90 Days Qty: 360 0RF fluconazole 150 mg tablet 150 mg PO Q3D Qty: 2 0RF levofloxacin 750 mg tablet 750 mg PO DAILY 5 Days Qty: 5 0RF Continued acetaminophen [Tylenol Arthritis Pain] 650 mg tablet extended release 1,300 mg PO Q8H PRN (Reason: Pain) omeprazole 20 mg capsule,delayed release(DR/EC) 20 mg PO BID multivitamin [Daily Multi-Vitamin] Tablet 1 tab PO QAM ascorbate calcium (vitamin C) 500 mg tablet 1,000 mg PO QAM magnesium 250 mg tablet 250 mg PO QAM cholecalciferol (vitamin D3) 50 mcg (2,000 unit) tablet 2,000 unit PO QAM aspirin [Adult Aspirin Regimen] 81 mg tablet,delayed release (DR/EC) 81 mg PO QAM nitroglycerin 0.4 mg tablet, sublingual 0.4 mg sublingual Q5M PRN (Reason: chest pain) Qty: 60 3RF Rx Instructions: do not exceed 3 doses per episode alprazolam [Xanax] 1 mg tablet 1 mg PO TID PRN (Reason: Anxiety) Qty: 90 5RF Parnate 10 mg tablet 30 mg PO BID@10,17 Qty: 180 5RF montelukast 10 mg tablet 10 mg PO QAM Qty: 90 12RF clopidogrel [Plavix] 75 mg tablet 75 mg PO QAM Qty: 90 12RF fluticasone propionate 50 mcg/actuation spray,suspension 2 spray INTRANASAL BID Qty: 16 12RF ranolazine [Ranexa] 1,000 mg tablet extended release 12 hr 1,000 mg PO BID Qty: 180 3RF fluticasone propion-salmeterol [Wixela Inhub] 100-50 mcg/dose Blister With Device 1 puff INHALATION BID ipratropium-albuterol 0.5 mg-3 mg(2.5 mg base)/3 mL solution for nebulization 3 ml INHALATION TID PRN (Reason: Shortness Of Breath) potassium chloride 20 mEq tablet,ER particles/crystals 20 meq PO QAM lovastatin 20 mg tablet 20 mg PO BEDTIME omega-3 fatty acids Capsule 1,000 mg PO DAILY@17 Atrovent HFA 17 mcg/actuation HFA aerosol inhaler 2 puff INHALATION Q6H PRN (Reason: Shortness Of Breath) diclofenac sodium [Voltaren] 1 % Gel 2 g TOPICAL QID PRN (Reason: Pain) Rx Instructions: apply to single elbow, wrist or hand; for hand includes palm/fingers/back of hand lidocaine 5 % Ointment See Rx Instructions .ROUTE .COMPLEX Rx Instructions: as directed prn melatonin 10 mg Tablet 10 mg PO BEDTIME PRN (Reason: Sleep) Colace 100 mg capsule 100 mg PO BID PRN (Reason: Constipation) hydrocodone-acetaminophen 5-325 mg Tablet 1 tab PO Q4H PRN (Reason: Pain) Changed furosemide [Lasix] 40 mg tablet 20 mg PO QAM PRN (Reason: Edema) Qty: 1 0RF baclofen 10 mg tablet 5 mg PO TID Qty: 1 12RF Discontinued metoprolol tartrate 25 mg tablet 12.5 mg PO BID Qty: 90 12RF Discharge Orders: Discharge Order (Routine); Ordered 09/12/22 Ordered By: Jamey Hernandez Other Ambulatory Orders: DME: Oxygen (Order) Location: None Selected Ordered By: Jamey Hernandez [place] [facility] [place] Venancio Mota MD [Primary Care Provider] - 09/13/22 (As per appointment) Discharge Activity: Increase activity as tolerated and Oxygen as instructed Patient Instructions: Pyridostigmine [place] (By mouth), Midodrine (By mouth), Levofloxacin (By mouth), Bacterial Pneumonia (GEN), Opioid Safety Activity Restrictions/Additional Instructions: Please complete antibiotic course for pneumonia with pseudomonal infection. Continue strict orthostatic precautions. Continue management, Prostigmin for severe orthostatic hypotension. Measure blood pressures and record values to bring to her appointment with primary provider for further adjustment of medications. For now do not restart beta-mara so as not to exacerbate low blood pressure. Follow-up with your infectious disease technician in office to discuss if this medication may be at some point safely restarted. Please have your primary doctor reassess your kidney function to confirm resolution of kidney injury, as well as liver parameters to confirm improvement. Continue follow-up regarding coronary disease, hypertension, cholesterol, and other chronic conditions and continued optimization of risk factors. Discharge Attestations Time Spent in Discharge Care*: greater than 30 min Quality Metrics Clinical Quality Measures [ No reported AMI, CVA or VTE this stay] Coding Level of Care Code Acute Chg FW DC note Diagnoses Septic shock A41.9; R65.21 Orthostatic hypotension I95.1 Pneumonia J18.9 Laterality: left Lung location: lower lobe of lung GEOVANNY (acute kidney injury) N17.9 COPD (chronic obstructive pulmonary disease) J44.9 Transaminitis R74.01 Coronary artery disease I25.10 HTN (hypertension) I10 Hypercholesterolemia E78.00 Major depressive disorder, recurrent, in full remission F33.42 S/P CABG x 4 Z95.1 Tobacco abuse Z72.0
[2022-09-12] MEDS: TRANYLCYPROMINE 10 MG 30 EACH PO (11:22)
--- NOTE | 2022-09-12 13:20 | PC.NURSE ---
Discharge Note Patient discharged to home via [facility] shuttle accompanied by [facility] staff. Discharge instructions reviewed with patient and/or loss control representative. Mobile pharmacy medications and/or prescriptions provided. Belongings/home medications returned.
== END 2022-09-12 13:21 | disposition home or self-care (01) | DRG 871 ==
LOC: ER 13:10 → ICU 17:01 → MEDSURG 09-11 05:45
PROVIDERS: Admitting Provider Student in an Organized Health Care Education/Training Program; Emergency Provider Family Medicine; PCP Family Medicine; Visit Provider Internal Medicine
DX: A41.9 Sepsis, unspecified organism (principal); J18.9 Pneumonia, unspecified organism; R65.21 Severe sepsis with septic shock; J44.0 Chronic obstructive pulmonary disease with (acute) lower respiratory infection; N17.9 Acute kidney failure, unspecified; B96.5 Pseudomonas (aeruginosa) (mallei) (pseudomallei) as the cause of diseases classified elsewhere; I25.10 Atherosclerotic heart disease of native coronary artery without angina pectoris; Z95.1 Presence of aortocoronary bypass graft; Z87.891 Personal history of nicotine dependence; I10 Essential (primary) hypertension; E78.5 Hyperlipidemia, unspecified; E78.00 Pure hypercholesterolemia, unspecified; F33.42 Major depressive disorder, recurrent, in full remission; I25.2 Old myocardial infarction; Z96.611 Presence of right artificial shoulder joint; Z90.49 Acquired absence of other specified parts of digestive tract; I95.1 Orthostatic hypotension; Z79.82 Long term (current) use of aspirin; Z79.02 Long term (current) use of antithrombotics/antiplatelets; Z79.891 Long term (current) use of opiate analgesic
CPT/HCPCS: 36415; 36600; 51702; 71045; 71275; 80048; 80051; 80053; 80061; 80202; 81001; 82330; 82436; 82533; 82607; 82746; 82805; 83036; 83540; 83550; 83605; 83735; 83880; 84100; 84133; 84145; 84300; 84443; 85025; 85378; 85610; 85730; 85999; 86140; 86403; 87040; 87070; 87077; 87086; 87186; 87205; 87449; 87635; 87641; 93005; 93308; 94640; 94760; 96365; 96367; 97116; 97161; 97530; 99291; J0743; J1885; J2543; J3370; J3490; J7030; J7050; J7626; Q9967

== ENCOUNTER → 2022-09-13 12:12 | Outpatient (BNVA) | payer MEDICARE, SELFPAY | PROVIDERS: PCP Family Medicine; Visit Provider Family Medicine | DX: D64.9 Anemia, unspecified (principal); I95.1 Orthostatic hypotension; J18.9 Pneumonia, unspecified organism | CPT/HCPCS: 80053; 85025 ==

== ENCOUNTER → 2022-09-28 09:58 | Outpatient (BNVA) | payer MEDICARE, SELFPAY | PROVIDERS: PCP Family Medicine; Visit Provider Nurse Practitioner Family | DX: I95.1 Orthostatic hypotension (principal); I25.10 Atherosclerotic heart disease of native coronary artery without angina pectoris; Z87.891 Personal history of nicotine dependence | CPT/HCPCS: 99214 ==

== ENCOUNTER → 2022-10-10 12:53 | Outpatient (BNVA) | payer MEDICARE, SELFPAY | PROVIDERS: PCP Family Medicine; Visit Provider Family Medicine | DX: D64.9 Anemia, unspecified (principal); I95.1 Orthostatic hypotension | CPT/HCPCS: 80053; 85025 ==

== ENCOUNTER → 2022-10-31 14:50 | Outpatient (BNVA) | payer MEDICARE, SELFPAY | PROVIDERS: PCP Family Medicine | DX: D64.9 Anemia, unspecified (principal); I95.1 Orthostatic hypotension; R00.2 Palpitations; I10 Essential (primary) hypertension | CPT/HCPCS: 80053; 85025 ==

== ENCOUNTER → 2022-11-02 10:12 | Outpatient (BNVA) | payer MEDICARE, SELFPAY | PROVIDERS: PCP Family Medicine; Visit Provider Student in an Organized Health Care Education/Training Program | DX: M17.9 Osteoarthritis of knee, unspecified (principal); M19.019 Primary osteoarthritis, unspecified shoulder; Z96.611 Presence of right artificial shoulder joint | CPT/HCPCS: 80503; 87015; 87070; 87075; 87102; 87116; 87205; 87206; 87801; 89050; 99214 ==

== ENCOUNTER 2022-11-14 15:00 | Inpatient (IN) | payer MEDICARE, SELFPAY ==
[2022-11-12 11:36] VITALS: BMI 29.0
--- NOTE | 2022-11-12 11:51 | P.ANESASSM_ITS ---
Pre-Anesthetic Assessment Height/Weight: Height 1.73 m Weight 86.636 kg Preop Diagnosis: Worsening Angina/ abnormal stress test Operation Date: 11/14/22 12:00 Proposed Procedures p Anterior and posterior colporrhaphy 56073 N81.6,N81.10(Not Applicable) - Dean Marlow MD s Posterior Repair Posterior Colporrhaphy(Not Applicable) - Dean Marlow MD Familial anesthetic complications: NOne Social No alcohol and No tobacco Exam alert, oriented x 3, clear to auscultation bilaterally and regular rate & rhythm Airway Mallampati: Class II Dentition: false Pulmonary Chronic Obstructive Pulmonary Disease pneumonia in september (bacterial) ended up in ICU - now back to baseline, no longer requiring oxygen CV/HEM Stable Angina (takes ranexa and NTG (Starts with tight jaw)), Coronary Artery Disease, Hypertension and Myocardial Infarction Hx of CABG in 2006 and mulitiple stents (plus arthrectomy as well) 2020. Still having some stable chest pains, but no more targets for intervention and the episodes have decreased considerably in the past months. Saw cardiology late september with followup in 6 months Anesthetic Plan ASA status: 4 Anesthesia: General Risk of > 500 ml blood loss (7ml/kg in children): No Other Pertinent Information patient informed of higher risk of cardiac complications Medications/Allergies Home Medications Medication Instructions Recorded Confirmed Last Taken Type ascorbate calcium (vitamin C) 500 1,000 mg PO QAM 12/08/19 11/12/22 11/12/22 07:00 History mg tablet magnesium 250 mg tablet 250 mg PO QAM 12/08/19 11/12/22 11/12/22 07:00 History multivitamin (Daily Multi-Vitamin 1 tab PO QAM 12/08/19 11/12/22 11/12/22 07:00 History tablet) fluticasone 100 mcg-salmeterol 50 1 puff inhalation BID 01/01/20 11/12/22 11/12/22 07:00 History mcg/dose blistr powdr for inhalation (Wixela Inhub) aspirin 81 mg tablet,delayed 81 mg PO QAM 08/30/20 11/12/22 11/12/22 08:00 History release (Adult Aspirin Regimen) cholecalciferol (vitamin D3) 50 2,000 unit PO QAM 06/01/21 11/12/22 11/12/22 07:00 History mcg (2,000 unit) tablet acetaminophen 650 mg 1,300 mg PO Q8H 08/29/21 11/12/22 11/12/22 07:00 History tablet,extended release (Tylenol Arthritis Pain) ipratropium 0.5 mg-albuterol 3 mg 3 ml inhalation TID PRN Shortness 11/30/21 11/12/22 Unknown History (2.5 mg base)/3 mL nebulization Of Breath soln ipratropium bromide 17 2 puff inhalation Q6H PRN 11/30/21 11/12/22 Unknown History mcg/actuation HFA aerosol inhaler Shortness Of Breath (Atrovent HFA) lovastatin 20 mg tablet 20 mg PO BEDTIME 11/30/21 11/12/22 11/11/22 22:00 History omega-3 fatty acids 1,000 mg PO DAILY@17 11/30/21 11/12/22 11/11/22 17:00 History lidocaine 5 % topical ointment See Rx Instructions .Route .COMPLEX 01/09/22 11/12/22 Unknown History melatonin 10 mg tablet 10 mg PO BEDTIME PRN Sleep 01/09/22 11/12/22 11/11/22 22:00 History nitroglycerin 0.4 mg sublingual 0.4 mg sublingual Q5M PRN chest 01/16/22 11/12/22 Unknown Rx tablet pain #60 tabs ranolazine 1,000 mg 1,000 mg PO BID #180 tabs 03/05/22 11/12/22 11/12/22 07:00 Rx tablet,extended release,12 hr (Ranexa) docusate sodium 100 mg capsule 100 mg PO DAILY 05/08/22 11/12/22 11/11/22 22:00 History (Colace) clopidogrel 75 mg tablet (Plavix) 75 mg PO QAM #90 tabs 07/05/22 11/12/22 11/12/22 07:00 Rx fluticasone propionate 50 2 spray intranasal BID #16 grams 07/05/22 11/12/22 11/11/22 22:00 Rx mcg/actuation nasal spray,suspension montelukast 10 mg tablet 10 mg PO QAM #90 tabs 07/05/22 11/12/22 11/12/22 07:00 Rx tranylcypromine 10 mg tablet 30 mg PO BID@10,17 #180 tabs 07/11/22 11/12/22 11/12/22 07:00 Rx (Parnate) ferrous gluconate 324 mg (37.5 mg 324 mg PO EVERY OTHER DAY #90 tabs 09/12/22 11/12/22 11/11/22 Rx iron) tablet baclofen 10 mg tablet 10 mg PO TID #90 tabs 11/06/22 11/12/22 11/12/22 07:00 Rx hydrocodone 5 mg-acetaminophen 325 1 tab PO Q4H PRN Pain 1 month #30 11/06/22 11/12/22 11/11/22 18:30 Rx mg tablet tabs omeprazole 20 mg capsule,delayed 20 mg PO BID #180 caps 11/06/22 11/12/22 11/12/22 07:00 Rx release potassium chloride 20 mEq 20 meq PO QAM #90 tabs 11/06/22 11/12/22 11/11/22 07:00 Rx tablet,extended release(part/cryst) alprazolam 1 mg tablet (Xanax) 1 mg PO TID 11/12/22 11/12/22 11/11/22 22:00 History carvedilol 3.125 mg tablet 3.125 mg PO BID 11/12/22 11/12/22 11/12/22 07:00 History furosemide 40 mg tablet (Lasix) 20 mg PO QAM 11/12/22 11/12/22 11/11/22 07:00 History Allergies Allergy/AdvReac Type Severity Reaction Status Date / Time pregabalin [From Lyrica] Allergy Severe dizziness Verified 11/12/22 11:18 codeine AdvReac Unknown Unknown Verified 11/12/22 11:18 gabapentin [From Neurontin] AdvReac Unknown dizziness Verified 11/12/22 11:18 oxycodone [From OxyContin] AdvReac Unknown Unknown Verified 11/12/22 11:18 Tclqabw-EBH-PjJ Reductase AdvReac Unknown muscle Verified 11/12/22 11:18 Inhibitor aches [Revyyai-Zhm-Jug Reductase Inhibitor] tramadol AdvReac Unknown rash Verified 11/12/22 11:18 [facility] Anesthesia Medical History Bladder prolapse COPD (chronic obstructive pulmonary disease) Cystocele with prolapse HTN (hypertension) Hypercholesterolemia Incomplete prolapse of vaginal vault Ischemic bowel disease Major depressive disorder, recurrent, in full remission Myocardial infarction Orthostatic hypotension Osteoarthritis of shoulders, bilateral Palpitations Panic disorder 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 Psychiatric care Tobacco abuse Warfarin anticoagulation Surgical History H/O cardiac catheterization H/O hysterectomy with oophorectomy H/O rotator cuff surgery H/O: hysterectomy History of right shoulder replacement Hx of appendectomy S/p bilateral carpal tunnel release S/P CABG x 4 S/P right hemicolectomy 01/01/2020 Status post colonoscopy Status post laparoscopic cholecystectomy 01/01/2020 Family History Daughter Diabetes Sister Diabetes x3 Brother Diabetes Son Hypertension Family/Other Thyroid condition granddaughter Mother Heart disease Denies family history of Colon cancer Ovarian cancer Clotting disorder Hyperlipidemia Breast cancer Anesthesia complication Bleeding disorder Uterine cancer Stroke Social History Smoking and tobacco status: former smoker (quit smoking 12/2021 ) Second hand smoke exposure: No Smoking risk assessment/counseling performed?: No Alcohol intake: never Desire information about alcohol rehabilitation?: No Counseling given: No Desire information about substance/drug rehabilitation?: No Counseling given: No Current occupational status: retired Data Anesthesia Cardiac Studies: Echocardiogram 01/09/22 Echocardiogram Limited Views 09/10/22 Echocardiogram Ultrasound 01/04/20 Sestamibi Stress Test (Cardiology) 01/15 Cardiac Event Monitor 05/08/22
[2022-11-14] VITALS (14 sets, daily range): BP systolic 100–138; BP diastolic 47–76; PULSE 70–78; RESP 16–21; TEMP 36.1–36.8; O2SAT 92–100
--- NOTE | 2022-11-14 10:50 | P.ANESUD_ITS ---
Pre-Anesthetic Update Pre-Anesthetic Assessment: Date of Surgery/Procedure: 11/14/22 Preop Ayanna gnosis: Vaginal vault prolapse Proposed Procedure: Operation Date: 11/14/22 12:00 Proposed Procedures p Anterior and posterior colporrhaphy 27994 N81.6,N81.10(Not Applicable) - Dean Marlow MD s Posterior Repair Posterior Colporrhaphy(Not Applicable) - Dean Marlow MD Any changes to Pre-Anesthetic Assessment?: No Last Intake: > 8hrs Exam: Pre-Anes Outpt Exam: alert, oriented x 3, clear to auscultation bilaterally and regular rate & rhythm Cardiac Studies: Echocardiogram 01/09/22 Echocardiogram Limited Views 09/10/22 Echocardiogram Ultrasound 01/04/20 Sestamibi Stress Test (Cardiology) 01/15 Cardiac Event Monitor 05/08/22
[2022-11-14] MEDS: enoxaparin 30 mg/0.3 mL Syringe SUBCUT (11:34)
[2022-11-14] MEDS: scopolamine 1.5 Patch 1 PATCH TRANSDERMA (11:35)
[2022-11-14] MEDS: sodium chloride 0.9% 1,000 ML 30 ML IV (11:36)
--- NOTE | 2022-11-14 12:21 | W.PM.OPSUD ---
Surgery/Procedure H&P Update DATE OF PROCEDURE: November 14, 2022 DATE H&P PERFORMED: 11/12/22 H&P UPDATE INFORMATION: I have reviewed H&P completed within last 30 days, I have examined patient prior to procedure and No changes to prior documentation PREOP DIAGNOSIS: Vaginal vault prolapse PLANNED PROCEDURE: Operation Date: 11/14/22 12:00 Proposed Procedures p Anterior and posterior colporrhaphy 29786 N81.6,N81.10(Not Applicable) - Dean Marlow MD s Posterior Repair Posterior Colporrhaphy(Not Applicable) - Dean Marlow MD
[2022-11-14] MEDS: ceFAZolin 2,000 MG in sodium chloride 0.9% (plus) 50 ML 100 MG IV (12:31)
[2022-11-14 13:31] LABS: Add Urine Microscopic? NO; Charge for UA Resulting for Rev
[2022-11-14 13:47] LABS: Glucose Urine UA Norm (Normal); Ketones Urine Negative (Negative); Protein Urine Neg (Negative); Specific Gravity, Urine 1.005 (1.005-1.030); Urine Appearance Clear (CLEAR); Urine Color Yellow (Yellow); pH Urine 6.5 (5-7)
[2022-11-14] MEDS: estrogens Conjugated Cream 30 gm 1 APPLIC VAGINAL (13:47)
[2022-11-14 13:48] LABS: Bilirubin Urine Neg (Negative); Blood Urine Neg (Negative); Leukocyte Esterase Urine Negative (Negative); Nitrate Urine Negative (Negative); Urobilinogen Urine Neg (Negative)
[2022-11-14] MEDS: vasopressin 20 unit/mL INJ INJECTION (13:57)
--- NOTE | 2022-11-14 14:36 | PM.OP ---
Operative Report Date of procedure: November 14, 2022 Pre-op diagnosis: Preop Diagnosis Vaginal vault prolapse Post-op diagnosis: Same as above Procedure done: Anterior colporrhaphy augmented with allograft. Single incision mid urethral sling. Posterior colporrhaphy. Cystoscopy. Implants: Coloplast Altis single incision sling Surgeon: Dean Marlow MD Estimated blood loss (mL): 25 IV fluids (mL): 700 Urine output (mL): 400 Procedure: After obtaining informed consent, the patient was taken to the operating room and placed in the supine position, given general anesthesia, and prepped and draped in sterile fashion. The abdomen, vulva and vagina were prepped and draped in a sterile manner. A time out procedure was performed. The vaginal mucosa was then injected with dilute vasopressin solution was infiltrated under the vaginal mucosa midline A vertical midline incision was made beneath the midurethra, nearly 1.5 cm length. Careful submucosal dissection was performed bilaterally up to the interior portion of the inferior pubic ramus. The insertion of adductor longus tendon on the patient?s pubic ramus was identified as reference land nicole. Palpated the notch along the internal edge of ischiopubic ramus where the adductor longus tendon and the inferior pubic ramus meet. The Altis single incision sling (SIS) was selected. Then the needle of the SIS inserted aiming at the location of this notch. One of the integrated self-fixating tips place onto the needle by sliding it over the end of the needle. The needle/sling assembly was inserted toward the location of identified reference notch making sure that the flat of the handle is perpendicular to the desired path. The needle was tracked along the posterior surface of the ischiopubic ramus until the midline nicole on the mesh is approximately at the midline position under the urethra. The needle was removed and the same was repeated on the contralateral side until the appropriate sling tension under the urethra was achieved ensuring that the mesh lays flat. The needle was removed and vaginal incision was closed in a running interlocking fashion with 2-0 Vicryl. The vaginal mucosa was scored in the midline with the Bovie approximately 1 cm medial to the urethral meatus to 1 cm distal to the vaginal cuff. This vaginal mucosa was then undermined and then incised in the midline with the Metzenbaum scissors. The lateral aspects of the vaginal mucosa were then grasped with the Allis clamps and the vaginal mucosa was then dissected off the underlying fascia with the Metzenbaum scissors. Again, there was noted to be quite a bit of oozing at the incision, which was controlled with cautery. After adequate dissection was performed, bilaterally. An Coloplast allograft modified at time of application to fit spacea, 3x3 cm piece . The allograft placed in front of cystocele ready to be implanted facing the vagina mucosa. Suture is placed at distal end of graft and placed towards vaginal cuff. Final suture is placed on proximal portion of the graft to complete the placement overlying the bladder. Then Interrupted vertical mattress sutures of 0 Vicryl were used to elevate the cystocele superiorly. The excessive vaginal mucosa was then trimmed with the Metzenbaum scissors and the vaginal mucosa was then reapproximated in the running interlocking fashion with 2-0 Vicryl. A dilute vasopressin solution was infiltrated under the posterior vaginal mucosa midline and into the perineal body. An inverted triangle incision was cut in the perineum. The posterior vaginal wall was opened vertically and midline up to the apex of the rectocele. The cut edges were held and splayed laterally with a series of Allis clamps. The open vaginal mucosa was then dissected laterally with a combination of sharp and blunt dissection, exposing the perirectal fascia. The perirectal fascia was then reapproximated with interrupted #2-0 Vicryl sutures to draw the lateral folds together and tuck the rectocele back. Deep interrupted sutures of #0 Vicryl were used to reapproximate the fibers of the levator ani muscles. The excess vaginal mucosa was trimmed. The posterior vaginal wall was closed with a running locked #0 Vicryl to the hymenal tags. The superficial perineal muscles were closed with running unlocked #0 Vicryl and the perineal skin was closed with running subcuticular #2-0 Vicryl. Then the Santa catheter was removed and cystoscope was inserted. The bladder was filled with sterile water. Complete evaluation of the bladder mucosa was performed noting no lacerations, dimpling, tears, bleeding of the mucosa or muscular layers. Both ureteral orifices were identified. Prompt excretion of urine from both ureteral orifices was noted. Cystoscope was withdrawn. The Santa catheter was replaced. Excellent hemostasis was obtained. A vaginal pack is placed overnight as postoperative support for the vaginal tissues after graft placement and closure of vaginal incisions. Sponge, lap, needle, and instrument counts were correct times three. The patient was taken to the recovery room, awake and in stable condition.
[2022-11-14] MEDS: dextrose 5%-lactated ringers 1,000 ML 125 ML IV (16:00)
--- NOTE | 2022-11-14 16:35 | ANE.PACU2 ---
Inpatient post-anesthesia follow up: Airway intact: Yes Vital signs: Temperature 97.4 F Pulse Rate 73 Respiratory Rate 20 Blood Pressure 120/66 Pulse Oximetry 93 Oxygen Delivery Me thod Room Air Oxygen Flow Rate 6 Fraction of Inspir ed Oxygen Hydration adequate: Yes Nausea and vomiting: No Pain level: 1 Mental status: Baseline
[2022-11-14] MEDS: TRANYLCYPROMINE 10 MG 30 EACH PO (17:27)
[2022-11-14] MEDS: acetaminophen 325 mg Tablet 1300 MG PO (17:28)
[2022-11-14] MEDS: docusate sodium 100 mg Capsule PO ×2 (17:29→17:32)
[2022-11-14] MEDS: carvedilol 3.125 mg Tablet PO (17:30)
[2022-11-14] MEDS: baclofen 10 mg Tablet PO (17:30)
[2022-11-14] MEDS: ranolazine (12HR) 500 mg Tablet 1000 MG PO (18:36)
[2022-11-14] MEDS: omega-3 fatty acids 1,000 mg Capsule 1000 MG PO (18:36)
[2022-11-14] MEDS: atorvastatin 40 mg Tablet 20 MG PO (20:22)
[2022-11-14] MEDS: pantoprazole DR 40 mg Tablet 20 MG PO (20:24)
[2022-11-14] MEDS: ALPRAZolam 0.5 mg Tablet 1 MG PO (20:26)
[2022-11-15] MEDS: dextrose 5%-lactated ringers 1,000 ML 125 ML IV (00:36)
[2022-11-15] MEDS: acetaminophen 325 mg Tablet 1300 MG PO (01:25)
[2022-11-15] MEDS: HYDROcodone-acetaminophen 5-325 mg Tablet PO (01:26)
[2022-11-15 04:00] VITALS: BP 86/55; PULSE 77; RESP 17; TEMP 36.6; O2SAT 95
[2022-11-15] MEDS: aspirin 81 mg EC Tablet PO (05:57)
[2022-11-15] MEDS: multivitamin therapeutic Tablet 1 TAB PO (05:58)
[2022-11-15] MEDS: cholecalciferol (vitamin D3) 1,000 unit Tablet 2000 UNIT PO (05:58)
[2022-11-15] MEDS: potassium chloride ER 20 mEq Tablet PO (05:59)
[2022-11-15] MEDS: FUROsemide 20 mg Tablet PO (05:59)
[2022-11-15] MEDS: clopidogrel 75 mg Tablet PO (06:00)
[2022-11-15] MEDS: montelukast sodium 10 mg Tablet PO (06:00)
[2022-11-15] MEDS: ascorbic acid 500 mg Tablet 1000 MG PO (06:00)
[2022-11-15 06:14] LABS: Hematocrit 33.6 % (37.0-47.0); Hemoglobin 10.3 g/dL (11.5-15.3); Mean Corpuscular HGB Conc 30.7 g/dL (30.0-36.0); Mean Corpuscular Hemoglobin 29.4 pg (28.0-34.0); Mean Platelet Volume 9.4 fL (7.4-10.4); Platelet Count 249 10^3/cmm (130-400); Red Cell Distribution Width 12.7 % (12.1-15.1); White Blood Count 8.7 10^3/uL (4.0-10.0)
[2022-11-15 08:30] VITALS: BP 99/68; PULSE 69; RESP 16; TEMP 36.6; O2SAT 95
[2022-11-15] MEDS: HYDROcodone-acetaminophen 5-325 mg Tablet 1 TAB PO (08:48)
[2022-11-15] MEDS: pantoprazole DR 40 mg Tablet 20 MG PO (08:48)
[2022-11-15] MEDS: ALPRAZolam 0.5 mg Tablet 1 MG PO (08:49)
[2022-11-15] MEDS: docusate sodium 100 mg Capsule PO (08:49)
[2022-11-15] MEDS: baclofen 10 mg Tablet PO (08:49)
[2022-11-15] MEDS: TRANYLCYPROMINE 10 MG 30 EACH PO (08:50)
[2022-11-15] MEDS: ranolazine (12HR) 500 mg Tablet 1000 MG PO (08:51)
[2022-11-15] MEDS: carvedilol 3.125 mg Tablet PO (08:51)
--- NOTE | 2022-11-15 09:27 | P.DS_ITS ---
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 Coombs 67-year-old female with a cystocele stage III, rectocele stage III. Admitted for planned anterior colporrhaphy augmented with allograft, single incision mid urethral sling and posterior colporrhaphy. The procedures were performed without complication. Overnight observation was uneventful. PVR within normal limits. She is afebrile and hemodynamically stable. Tolerating diet well. Ambulating without difficulty. Patient mildly anemic declined iron supplement to avoid constipation. Physical Exam Narrative: GA: Alert and oriented ?3. HEENT: WNL. Heart: Regular rate and rhythm. Lungs: Clear to auscultation bilaterally. Abdomen: Bowel sounds present. DONATIONS ATTENDANT: Spotting bleeding. Extremities: No edema, no cyanosis, no calves pain. Urinary Catheter Management: Santa: Cath Placed During This Visit: yes, but has since been removed by the nurse Reason for Continuing Indwelling Catheter: Decision to DC Catheter Urinary Catheter Date of Insertion: 11/14/22 Urinary Catheter Time of Insertion: 13:10 Date Urinary Catheter Removed: 11/15/22 Time Urinary Catheter Discontinued: 05:30 History History History 4 Term 4 0 Miscarriages/Ectopic 0 Living Children 4 Discharge Data Studies Completed and Pending Laboratory Results WBC 8.7 10^3/uL (4.0-10.0) 11/15/22 06:00 RBC 3.50 10^6/uL (4.1-5.3) L 11/15/22 06:00 Hgb 10.3 g/dL (11.5-15.3) L 11/15/22 06:00 Hct 33.6 % (37.0-47.0) L 11/15/22 06:00 MCV 96.0 fl (81-99) 11/15/22 06:00 MCH 29.4 pg (28.0-34.0) 11/15/22 06:00 MCHC 30.7 g/dL (30.0-36.0) 11/15/22 06:00 RDW 12.7 % (12.1-15.1) 11/15/22 06:00 Plt Count 249 10^3/cmm (130-400) 11/15/22 06:00 MPV 9.4 fL (7.4-10.4) 11/15/22 06:00 Urine Color Yellow (Yellow) 11/14/22 13:10 Urine Appearance Clear (CLEAR) 11/14/22 13:10 Urine pH 6.5 (5-7) 11/14/22 13:10 Ur Specific [place] 1.005 (1.005-1.030) 11/14/22 13:10 Urine Protein Neg (Negative) 11/14/22 13:10 Urine Glucose (UA) Norm (Normal) 11/14/22 13:10 Urine Ketones Negative (Negative) 11/14/22 13:10 Urine Blood Neg (Negative) 11/14/22 13:10 Urine Nitrate Negative (Negative) 11/14/22 13:10 Urine Bilirubin Neg (Negative) 11/14/22 13:10 Urine Urobilinogen Neg mg/dL (Negative) 11/14/22 13:10 Ur Leukocyte Esterase Negative (Negative) 11/14/22 13:10 Blood Type A Positive 11/14/22 11:17 Rho(D) Type Positive 11/14/22 11:17 Antibody Screen Negative 11/14/22 11:17 Vitals Last Vital Signs Temp 98 F 11/15/22 04:00 Pulse 77 11/15/22 04:00 Resp 17 11/15/22 04:00 BP 86/55 11/15/22 04:00 Pulse Ox 95 11/15/22 04:00 O2 Del Method 11/15/22 04:00 O2 Flow Rate 6 11/14/22 14:51 Discharge Plan Discharge Patient Disposition: Home Condition: Stable Prescriptions: New ibuprofen 800 mg tablet 800 mg PO TID PRN (Reason: pain) Qty: 60 0RF acetaminophen 325 mg capsule 325 mg PO Q4H PRN (Reason: fever or pain) Qty: 60 0RF Continued acetaminophen [Tylenol Arthritis Pain] 650 mg tablet extended release 1,300 mg PO Q8H multivitamin [Daily Multi-Vitamin] Tablet 1 tab PO QAM ascorbate calcium (vitamin C) 500 mg tablet 1,000 mg PO QAM magnesium 250 mg tablet 250 mg PO QAM cholecalciferol (vitamin D3) 50 mcg (2,000 unit) tablet 2,000 unit PO QAM aspirin [Adult Aspirin Regimen] 81 mg tablet,delayed release (DR/EC) 81 mg PO QAM nitroglycerin 0.4 mg tablet, sublingual 0.4 mg sublingual Q5M PRN (Reason: chest pain) Qty: 60 3RF Rx Instructions: do not exceed 3 doses per episode Parnate 10 mg tablet 30 mg PO BID@10,17 Qty: 180 5RF montelukast 10 mg tablet 10 mg PO QAM Qty: 90 12RF clopidogrel [Plavix] 75 mg tablet 75 mg PO QAM Qty: 90 12RF fluticasone propionate 50 mcg/actuation spray,suspension 2 spray INTRANASAL BID Qty: 16 12RF hydrocodone-acetaminophen 5-325 mg tablet 1 tab PO Q4H PRN (Reason: Pain) 30 Days Qty: 30 0RF potassium chloride 20 mEq tablet,ER particles/crystals 20 meq PO QAM Qty: 90 3RF omeprazole 20 mg capsule,delayed release(DR/EC) 20 mg PO BID Qty: 180 3RF baclofen 10 mg tablet 10 mg PO TID Qty: 90 12RF ranolazine [Ranexa] 1,000 mg tablet extended release 12 hr 1,000 mg PO BID Qty: 180 3RF fluticasone propion-salmeterol [Wixela Inhub] 100-50 mcg/dose Blister With Device 1 puff INHALATION BID ipratropium-albuterol 0.5 mg-3 mg(2.5 mg base)/3 mL solution for nebulization 3 ml INHALATION TID PRN (Reason: Shortness Of Breath) lovastatin 20 mg tablet 20 mg PO BEDTIME omega-3 fatty acids Capsule 1,000 mg PO DAILY@17 Atrovent HFA 17 mcg/actuation HFA aerosol inhaler 2 puff INHALATION Q6H PRN (Reason: Shortness Of Breath) lidocaine 5 % Ointment See Rx Instructions .ROUTE .COMPLEX Rx Instructions: as directed prn melatonin 10 mg Tablet 10 mg PO BEDTIME PRN (Reason: Sleep) Colace 100 mg capsule 100 mg PO DAILY ferrous gluconate 324 mg (37.5 mg iron) Tablet 324 mg PO EVERY OTHER DAY Qty: 90 0RF Lasix 40 mg tablet 20 mg PO QAM alprazolam [Xanax] 1 mg tablet 1 mg PO TID carvedilol 3.125 mg tablet 3.125 mg PO BID Rx Instructions: TAKE 1 TABLET BY MOUTH TWICE DAILY WITH FOOD Discharge Orders: Discharge Order (Routine); Ordered 11/15/22 Ordered By: Dean Marlow Discharge Diet: Advance as tolerated Discharge Activity: Limit activity as instructed Patient Instructions: Opioid Safety, Anterior Vaginal Repair (GEN), Bladder Sling for Women (DC), Posterior Vaginal Repair (GEN) Activity Restrictions/Additional Instructions: 1. Please call [facility] on next working day to make your post-operative appointment in 2 weeks. 2. Please stay home until you come back to the clinic on first post-operative check up. 3. Please follow instructions on your medications CAREFULLY. 4. If you have abdominal incision, do not cover it unless dressing is necessary because of drainage. OK to shower, but avoid bath. Leave steri-strips until they fall off. If they are still on one week after surgery, you may remove them. 5. If you had vaginal surgery or vaginal repair, Dr. Marlow may instruct you to take SITZ bath. 6. Yellow, blood tinged odorous vaginal discharge is usually normal after hysterectomy or vaginal surgeries. 7. No sexual intercourse, tampons, or douches until you are completely released from the post-operative care. 8. Avoid constipation by eating right and maybe using some Metamucil or Milk of Magnesia. 9. All prescription refills are given during the working hours. Please do no wait till it runs out. Call the clinic at [phone] before your medication runs out. The clinic will get in touch with your doctor to prescribe medications if necessary. 10. Please remain within 40 mile radius from our hospital because emergencies do happen now and then during the post-operative period. 11. If you have stairs at home, take one step at a time slowly and minimize the number of trips. It helps to stay in one floor for the next few days. No lifting except what you can lift by one hand until you are released from the post-operative care. 12. Driving is discouraged until you are well healed. It may be 3-4 weeks before you feel strong enough to drive. You should be able to turn and look through the rear window without pain and you should be able to push the brake pedal very hard without pain before you drive. No fast rules, but SAFETY should be your primary concern. DO NOT drive if you are on sedating medications such as narcotics. 13. Call the clinic (during working hours) to make urgent appointment or go to the Emergency room, if any of the following occurs: i. Vaginal bleeding becomes heavy, more than a period. ii. Incision becomes red and sore, or drains pus. iii. Your temperature is over 100.4 or you have chill. iv. IV site becomes red and swollen (a little ``knot?? is usually OK) v. Persistent nausea and vomiting vi. Persistent constipation or diarrhea vii. Rash or allergic reaction to medications. 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
[2022-11-15 10:15] VITALS: BP 99/68; PULSE 69; RESP 16; TEMP 36.6; O2SAT 95
--- NOTE | 2022-11-15 10:47 | PC.NURSE ---
Pt voided 500 mL, and post void residual was 110 mL
== END 2022-11-15 10:18 | disposition home or self-care (01) | DRG 748 ==
LOC: OBGYN 15:01
PROVIDERS: Admitting Provider Obstetrics & Gynecology; PCP Family Medicine; Visit Provider Obstetrics & Gynecology
PROC: 0JQC0ZZ Repair Pelvic Region Subcutaneous Tissue and Fascia, Open Approach (ICD-10-PCS; CPT 57240; principal; 2022-11-14 11:50)
PROC: 0TSD0ZZ Reposition Urethra, Open Approach (ICD-10-PCS; CPT 57250; 2022-11-14 11:50)
PROC: 0TJB8ZZ Inspection of Bladder, Via Natural or Artificial Opening Endoscopic (ICD-10-PCS; CPT 52000; 2022-11-14 11:50)
PROC: 0TSD0ZZ Reposition Urethra, Open Approach (ICD-10-PCS; CPT 57288; 2022-11-14 11:50)
DX: N81.10 Cystocele, unspecified (principal); N81.6 Rectocele; Z79.82 Long term (current) use of aspirin; Z79.02 Long term (current) use of antithrombotics/antiplatelets; Z79.891 Long term (current) use of opiate analgesic; J44.9 Chronic obstructive pulmonary disease, unspecified; I10 Essential (primary) hypertension; E78.00 Pure hypercholesterolemia, unspecified; I25.2 Old myocardial infarction; Z87.891 Personal history of nicotine dependence; Z79.01 Long term (current) use of anticoagulants; Z96.611 Presence of right artificial shoulder joint; Z90.49 Acquired absence of other specified parts of digestive tract; Z95.1 Presence of aortocoronary bypass graft
CPT/HCPCS: 57240; 57288; 36415; 51798; 81003; 85027; 86850; 86900; C1713; C1762; J0690; J1650; J2405; J2704; J3010; J3490; J7030; J7121; Q9968

== ENCOUNTER → 2022-11-29 10:51 | Outpatient (BNVA) | payer MEDICARE, SELFPAY | PROVIDERS: PCP Family Medicine; Visit Provider Student in an Organized Health Care Education/Training Program | DX: T84.038D Mechanical loosening of other internal prosthetic joint, subsequent encounter (principal); Z96.611 Presence of right artificial shoulder joint; M25.511 Pain in right shoulder; Y79.2 Prosthetic and other implants, materials and accessory orthopedic devices associated with adverse incidents | CPT/HCPCS: 20610; 99214 ==

== ENCOUNTER → 2022-12-25 14:38 | Outpatient (BNVA) | payer MEDICARE, SELFPAY | PROVIDERS: PCP Family Medicine; Visit Provider Nurse Practitioner Family | DX: J18.9 Pneumonia, unspecified organism (principal) | CPT/HCPCS: 71046 ==

== ENCOUNTER → 2022-12-31 10:46 | Outpatient (BNVA) | payer MEDICARE, SELFPAY | PROVIDERS: PCP Family Medicine; Visit Provider Anesthesiology Pain Medicine | DX: M19.011 Primary osteoarthritis, right shoulder (principal); M19.012 Primary osteoarthritis, left shoulder | CPT/HCPCS: 99204 ==

== ENCOUNTER → 2023-01-08 12:43 | Outpatient (BNVA) | payer MEDICARE, SELFPAY | PROVIDERS: PCP Family Medicine; Visit Provider Internal Medicine | DX: I25.10 Atherosclerotic heart disease of native coronary artery without angina pectoris (principal); E78.00 Pure hypercholesterolemia, unspecified; I21.9 Acute myocardial infarction, unspecified; I10 Essential (primary) hypertension; J44.9 Chronic obstructive pulmonary disease, unspecified; Z95.1 Presence of aortocoronary bypass graft; I73.9 Peripheral vascular disease, unspecified; I25.2 Old myocardial infarction; Z87.891 Personal history of nicotine dependence | CPT/HCPCS: 99214 ==

== ENCOUNTER 2023-01-16 13:50 | Emergency (ER) | payer MEDICARE, SELFPAY ==
[2023-01-16 13:57] VITALS: BP 144/80; PULSE 80; RESP 18; TEMP 37; O2SAT 96; BMI 28.7
--- NOTE | 2023-01-16 14:05 | ED_ITS ---
HPI - Chest Pain General: Chief Complaint: Chest Pain Stated Complaint: Chest Pains, Jaw pain, SOB Time Seen by Provider: 01/16/23 14:04 History of Present Illness: Ms. Coombs is a 67-year-old lady with complex history including CABG, stent, hypertension, hyperlipidemia, COPD presenting to the emergency department due to chest pain. She reports approximately 9 months ago being started on ranolazine and has essentially been chest pain-free since that time. She was standing getting ready to leave her house today when she developed substernal chest pressure with radiation to the neck and associated mild shortness of breath and presyncopal type feeling. Density symptoms at worst was moderate to severe. Currently chest pain is improved with nitro however jaw tightness persists. No other specific changes in health, exacerbating, or alleviating factors identified. Onset (ago): hour(s) Timing of current episode: constant Prior episodes: Yes Onset: during exertion Pain location: substernal Pain radiation: neck Severity: moderate Quality: aching and heaviness Relieving factors: nitroglycerin Exacerbating factors: nothing Associated symptoms: Reports dyspnea Review of Systems General: Reports: 10 or more systems reviewed and unremarkable except in HPI and below Resp: Reports: dyspnea PFSH ED PFSH: Medical History Bladder prolapse COPD (chronic obstructive pulmonary disease) Coronary artery disease Cystocele with prolapse HTN (hypertension) Hypercholesterolemia Incomplete prolapse of vaginal vault Ischemic bowel disease Major depressive disorder, recurrent, in full remission Myocardial infarction Osteoarthritis of shoulders, bilateral Palpitations Panic disorder 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 History of right shoulder replacement Hx of appendectomy S/p bilateral carpal tunnel release S/P CABG x 4 S/P right hemicolectomy 01/01/2020 Status post colonoscopy Status post laparoscopic cholecystectomy 01/01/2020 Status post reverse total arthroplasty of right shoulder Family History Daughter Diabetes Sister Diabetes x3 Brother Diabetes Son Hypertension Family/Other Thyroid condition granddaughter Mother Heart disease Denies family history of Colon cancer Ovarian cancer Clotting disorder Hyperlipidemia Breast cancer Anesthesia complication Bleeding disorder Uterine cancer Stroke Social History Smoking and tobacco status: former smoker (quit smoking 12/2021 ) Second hand smoke exposure: No Smoking risk assessment/counseling performed?: No Alcohol intake: never Desire information about alcohol rehabilitation?: No Counseling given: No Desire information about substance/drug rehabilitation?: No Counseling given: No Current occupational status: retired Physical Exam Const: COMMON NORMALS: alert GENERAL APPEARANCE: cooperative and well developed HENMT: COMMON NORMALS: normocephalic and atraumatic HEAD & SCALP: normocephalic and atraumatic Eye: COMMON NORMALS: conjunctivae normal CONJUNCTIVA: Yes conjunctivae normal SCLERA: sclerae normal Neck/C-Spine: COMMON NORMALS: supple GENERAL: Yes trachea midline Resp: COMMON NORMALS: clear to auscultation bilaterally EFFORT & INSPECTION: Yes able to speak in complete sentences AUSCULTATION: clear to auscultation bilaterally Cardio: COMMON NORMALS: regular rate and regular rhythm RATE: regular rate RHYTHM: regular rhythm GI: COMMON NORMALS: Soft to palpation PALPATION: Yes Soft to palpation and No Tenderness to palpation present (GI) PERCUSSION: normal to percussion Extremity: GENERAL: Yes normal exam except as noted and No edema Neuro: COMMON NORMALS: moves all extremities SENSORIUM/ORIENTATION: Yes alert and No Orientation impaired Psych: COMMON NORMALS: mental status grossly normal and Normal thought process present THOUGHT PROCESS: Normal thought process present Course Vital Signs: Vital signs: Vital Signs Temperature 98.6 F 01/16/23 13:57 Pulse Rate 72 01/16/23 17:33 Respiratory Rate 16 01/16/23 17:33 Blood Pressure 128/78 01/16/23 17:33 Pulse Oximetry 96 01/16/23 17:33 Oxygen Delivery Me thod 01/16/23 16:05 MDM - Chest Pain Medical Decision Making 67-year-old lady with extensive cardiac history and typically well controlled symptoms presenting to the emergency department for chest pain. Exam as above. EKG notable for sinus rhythm with nonspecific ST segment abnormalities, normal axis and intervals, no STEMI. Similar on repeat Labs with similar anemia to baseline, no other significant hematologic abnormal ities. Metabolic panel similar to prior. Mild elevated creatinine. Negative range 2-hour delta troponin. Chest x-ray with no lobar consolidation or pneumothorax. Need for follow-up CT discussed. Discussed case with cardiology. Plan to add Imdur. Most likely etiology of patient's symptoms is chest pain. The results of ED evaluation were discussed with the patient including possible disposition options. I discussed risk stratification by heart score and estimated risk of major adverse cardiac events. The patient wishes to proceed with outpatient management. I discussed prescriptions and/or symptomatic cares (if applicable) including appropriate and responsible use, followup plan, and return precautions. The patient verbalized understanding and felt safe for discharge. Medical Records I reviewed the patient's medical records. Lab Data I reviewed the patient's lab results. 01/16/23 14:10 01/16/23 14:10 Radiology Impressions Chest X-Ray 01/16/23 14:05 IMPRESSION: 1. No acute findings. 2. Nonspecific focal opacity measuring 2.3 cm at the right lung base is stable since 12/25/2022. No correlate is visible on chest CT 09/08/2022. Possible neoplasm, granuloma, parenchymal scarring or costochondral calcification. Nonemergent noncontrast chest CT follow-up is recommended. Laboratory Results WBC 9.9 10^3/uL (4.0-10.0) 01/16/23 14:10 RBC 3.66 10^6/uL (4.1-5.3) L 01/16/23 14:10 Hgb 10.8 g/dL (11.5-15.3) L 01/16/23 14:10 Hct 35.0 % (37.0-47.0) L 01/16/23 14:10 MCV 95.6 fl (81-99) 01/16/23 14:10 MCH 29.5 pg (28.0-34.0) 01/16/23 14:10 MCHC 30.9 g/dL (30.0-36.0) 01/16/23 14:10 RDW 14.6 % (12.1-15.1) 01/16/23 14:10 Plt Count 357 10^3/cmm (130-400) 01/16/23 14:10 MPV 9.9 fL (7.4-10.4) 01/16/23 14:10 Neut % (Auto) 62.7 % 01/16/23 14:10 Lymph % (Auto) 24.7 % 01/16/23 14:10 Dolores % (Auto) 8.4 % 01/16/23 14:10 Eos % (Auto) 3.3 % 01/16/23 14:10 Baso % (Auto) 0.6 % 01/16/23 14:10 Neut # (Auto) 6.21 10^3/uL (1.8-7.7) 01/16/23 14:10 Lymph # (Auto) 2.5 10^3/uL (0.8-4.8) 01/16/23 14:10 Dolores # (Auto) 0.8 10^3/uL (0.2-0.9) 01/16/23 14:10 Eos # (Auto) 0.3 10^3/uL (0.0-0.8) 01/16/23 14:10 Baso # (Auto) 0.1 10^3/uL (0.0-0.1) 01/16/23 14:10 Nucleated RBC % (auto) 0 % 01/16/23 14:10 Nucleated RBCs # 0.0 /100WBC 01/16/23 14:10 Sodium 140 mmol/L (136-145) 01/16/23 14:10 Potassium 4.2 mmol/L (3.5-5.1) 01/16/23 14:10 Chloride 106 mmol/L (98-107) 01/16/23 14:10 Carbon Dioxide 21 mmol/L (22-29) L 01/16/23 14:10 Anion Gap 17.2 (5-19) 01/16/23 14:10 BUN 14 mg/dL (8-23) 01/16/23 14:10 Creatinine 1.1 mg/dL (0.5-0.9) H 01/16/23 14:10 GFR Calculation 49.4 mL/min (90-130) L 01/16/23 14:10 Glucose 98 mg/dL (65-115) 01/16/23 14:10 Calculated Osmolality 290 mOsm/kg (285-295) 01/16/23 14:10 Calcium 9.1 mg/dL (8.5-10.5) 01/16/23 14:10 Total Bilirubin 0.2 mg/dL (0.15-1.2) 01/16/23 14:10 AST 14 U/L (0-32) 01/16/23 14:10 ALT 12 U/L (0-33) 01/16/23 14:10 Alkaline Phosphatase 81 U/L (35-105) 01/16/23 14:10 Troponin T Baseline 13 ng/L (0-10) H 01/16/23 14:10 Troponin T 120 Minute 11.18 ng/L (0-10) H 01/16/23 16:05 Delta Troponin T -1.82 ABS# (0-10) L 01/16/23 16:05 NT-Pro-B Natriuret Pep 975 pg/mL (0-125) H 01/16/23 14:10 Total Protein 7.2 g/dL (6.6-8.7) 01/16/23 14:10 Albumin 4.0 g/dL (3.5-5.2) 01/16/23 14:10 Globulin 3.2 g/dL (1.3-4.6) 01/16/23 14:10 Lipase 19 U/L (13-60) 01/16/23 14:10 Discharge Plan Discharge Patient Disposition: Home Clinical Impression: Chest pain Condition: Stable Prescriptions: No Action multivitamin [Daily Multi-Vitamin] Tablet 1 tab PO QAM ascorbate calcium (vitamin C) 500 mg tablet 1,000 mg PO QAM magnesium 250 mg tablet 250 mg PO QAM cholecalciferol (vitamin D3) 50 mcg (2,000 unit) tablet 2,000 unit PO QAM aspirin [Adult Aspirin Regimen] 81 mg tablet,delayed release (DR/EC) 81 mg PO QAM nitroglycerin 0.4 mg tablet, sublingual 0.4 mg sublingual Q5M PRN (Reason: chest pain) Qty: 60 3RF Rx Instructions: do not exceed 3 doses per episode isosorbide mononitrate 30 mg tablet extended release 24 hr 30 mg PO DAILY Qty: 90 3RF montelukast 10 mg tablet 10 mg PO QAM Qty: 90 12RF clopidogrel [Plavix] 75 mg tablet 75 mg PO QAM Qty: 90 12RF fluticasone propionate 50 mcg/actuation spray,suspension 2 spray INTRANASAL BID Qty: 16 12RF potassium chloride 20 mEq tablet,ER particles/crystals 20 meq PO QAM Qty: 90 3RF omeprazole 20 mg capsule,delayed release(DR/EC) 20 mg PO BID Qty: 180 3RF Parnate 10 mg tablet 30 mg PO BID@10,17 Qty: 180 11RF ranolazine [Ranexa] 1,000 mg tablet extended release 12 hr 1,000 mg PO BID Qty: 180 3RF fluticasone propion-salmeterol [Wixela Inhub] 100-50 mcg/dose blister with device 1 inh INHALATION BID Qty: 60 11RF baclofen 10 mg tablet 10 mg PO TID Qty: 90 12RF topiramate 50 mg tablet 50 mg PO BID 30 Days Qty: 60 0RF alprazolam [Xanax] 1 mg tablet 1 mg PO TID 90 Days Qty: 270 1RF ipratropium-albuterol 0.5 mg-3 mg(2.5 mg base)/3 mL solution for nebulization 3 ml INHALATION TID PRN (Reason: Shortness Of Breath) lovastatin 20 mg tablet 20 mg PO BEDTIME omega-3 fatty acids Capsule 1,000 mg PO DAILY@17 Atrovent HFA 17 mcg/actuation HFA aerosol inhaler 2 puff INHALATION Q6H PRN (Reason: Shortness Of Breath) lidocaine 5 % Ointment See Rx Instructions .ROUTE .COMPLEX Rx Instructions: as directed prn melatonin 10 mg Tablet 10 mg PO BEDTIME PRN (Reason: Sleep) Colace 100 mg capsule 200 mg PO BEDTIME furosemide [Lasix] 40 mg tablet 20 mg PO QAM carvedilol 3.125 mg tablet 3.125 mg PO BID Rx Instructions: TAKE 1 TABLET BY MOUTH TWICE DAILY WITH FOOD Discharge Orders: Discharge ED (Routine); Ordered 01/16/23 Ordered By: Celso Jacques Referrals: Venancio Mota MD [Primary Care Provider] - Discharge Diet: Usual diet Discharge Activity: Increase activity as tolerated Patient Instructions: Chest Pain (ED) Activity Restrictions/Additional Instructions: Thank you for visiting the emergency department. You were seen and evaluated f or chest pain. I do not see evidence of heart damage or acute ND on evaluation. In discussion with cardiology we will plan to add Imdur to your medication regimen and have you follow-up with cardiology in 1 week. Return to the emergency department for worsening symptoms or anything else that you are concerned about and feel needs emergency department evaluation. Coding Level of Care Code ED Drupal Web Developer for Lillian Yang
--- NOTE | 2023-01-16 14:05 | XRR_ITS ---
PROCEDURE INFORMATION: Exam: XR Chest Exam date and time: 01/16/2023 2:09 PM Age: 67 years old Clinical indication: Pain; Angina pectoris; Prior surgery; Surgery type: Cabg; Additional info: Cp TECHNIQUE: Imaging protocol: Radiologic exam of the chest. Views: 1 view. COMPARISON: 1. CR XR chest 2V* [id number] 12/25/2022 2:[address] angio chest PE protcl [id number] 09/08/2022 4:27 PM FINDINGS: Lungs: Mild coarse reticular opacity in the lung bases suggests mild subsegmental atelectasis. There is 2.3 cm focal opacity in the lateral inferior right lung, stable since 12/25/2022. Lungs are otherwise clear. Pleural spaces: There is no pleural effusion or pneumothorax. Heart/Mediastinum: Cardiomediastinal contours are unremarkable. Bones/joints: Sternal wires are present. There is no displacement to suggest sternal dehiscence. There is a right shoulder arthroplasty in satisfactory alignment. No acute fracture. XR/XR chest 1V portable [id number] IMPRESSION: 1. No acute findings. 2. Nonspecific focal opacity measuring 2.3 cm at the right lung base is stable since 12/25/2022. No correlate is visible on chest CT 09/08/2022. Possible neoplasm, granuloma, parenchymal scarring or costochondral calcification. Nonemergent noncontrast chest CT follow-up is recommended.
--- NOTE | 2023-01-16 14:05 | ECG_ITS ---
[facility] Test Date: 2023-01-16 Pat Name: Rebecca Coombs Department: Room: Gender: Female Tester Vibrator Equipment: : 1955 Requested By: Celso Jacques Order Number: [id number] Vargas MD: Tram Goldberg M.D. Measurements Intervals [place] Rate: 75 P: 59 ME: 193 QRS: 37 QRSD: 94 T: 75 QT: 398 QTc: 447 Interpretive Statements SINUS RHYTHM Compared to ECG 09/08/2022 12:12:47 No significant changes Electronically Signed On 01-16-2023 20:58:50 RETAIL EVENT COORDINATOR by Tram Goldberg M.D. [id number] f
[2023-01-16 14:25] LABS: Basophils # 0.1 10^3/uL (0.0-0.1); Basophils % 0.6 %; Eosinophils # 0.3 10^3/uL (0.0-0.8); Eosinophils % 3.3 %; Hemoglobin 10.8 g/dL (11.5-15.3); Lymphocytes # 2.5 10^3/uL (0.8-4.8); Lymphocytes % 24.7 %; Mean Corpuscular HGB Conc 30.9 g/dL (30.0-36.0); Mean Corpuscular Hemoglobin 29.5 pg (28.0-34.0); Mean Corpuscular Volume 95.6 fl (81-99); Mean Platelet Volume 9.9 fL (7.4-10.4); Monocytes # 0.8 10^3/uL (0.2-0.9); Monocytes % 8.4 %; Neutrophils # 6.21 10^3/uL (1.8-7.7); Neutrophils % 62.7 %; Nucleated Red Blood Cells % 0 %; Platelet Count 357 10^3/cmm (130-400); Red Blood Count 3.66 10^6/uL (4.1-5.3); Red Cell Distribution Width 14.6 % (12.1-15.1); White Blood Count 9.9 10^3/uL (4.0-10.0)
[2023-01-16] MEDS: aspirin 81 mg Chew Tablet 324 MG PO (14:27)
[2023-01-16 14:52] LABS: Troponin(5th) Baseline 13 ng/L (0-10)
[2023-01-16 15:02] LABS: Alanine Aminotransferase 12 U/L (0-33); Alkaline Phosphatase 81 U/L (35-105); Anion Gap 17.2 (5-19); Aspartate Amino Transferase 14 U/L (0-32); Blood Urea Nitrogen 14 mg/dL (8-23); Calcium 9.1 mg/dL (8.5-10.5); Carbon Dioxide 21 mmol/L (22-29); Chloride 106 mmol/L (98-107); Globulin 3.2 g/dL (1.3-4.6); Glomerular Filtration Rate 49.4 mL/min (90-130); Glucose 98 mg/dL (65-115); Lipase 19 U/L (13-60); NT Pro B Type Natriuretic Pept 975 pg/mL (0-125); Osmolality Calculated 290 mOsm/kg (285-295); Potassium 4.2 mmol/L (3.5-5.1); Sodium 140 mmol/L (136-145); Total Bilirubin 0.2 mg/dL (0.15-1.2); Total Protein 7.2 g/dL (6.6-8.7)
[2023-01-16 16:05] VITALS: BP 131/79; PULSE 72; O2SAT 96
[2023-01-16 16:42] LABS: Troponin 5 2HR 11.18 ng/L (0-10)
[2023-01-16 16:44] LABS: Troponin 5 2HR Delta -1.82 ABS# (0-10)
--- NOTE | 2023-01-16 17:05 | ECG_ITS ---
[facility] Test Date: 2023-01-16 Pat Name: Rebecca Coombs Department: Room: Gender: Female Assistant Banquet Manager: : 1955 Requested By: Celso Jacques Order Number: [id number] Alicia MD: Tram Goldberg M.D. Measurements Intervals [place] Rate: 67 P: 57 [place]: 224 QRS: 31 QRSD: 108 T: 76 QT: 401 QTc: 426 Interpretive Statements SINUS RHYTHM WITH FIRST DEGREE AV BLOCK MODERATE T-WAVE ABNORMALITY, CONSIDER ANTERIOR ISCHEMIA [-0.1+ mV T-WAVE IN V3/V4] Compared to ECG 01/16/2023 14:08:09 First degree AV block now present T-wave abnormality now present Possible ischemia now present Electronically Signed On 01-16-2023 21:02:14 GLOVE PRINTER by Tram Goldberg M.D. [id number] f
[2023-01-16 17:33] VITALS: BP 128/78; PULSE 72; RESP 16; O2SAT 96
--- NOTE | 2023-01-17 10:50 | DCPLANNER ---
Addendum entered by Christine Whitaker 02/07/23 08:23: Patient had a follow appointment scheduled with heart care - patient did attend appointment. Original Note: mining manager had message to schedule a follow up appointment for patient with cardiology. mining manager sent patients information to the front office staff at heart [facility]. Patients information will be printed and reviewed. Clinic will call patient with appointment information.
== END 2023-01-16 17:35 | disposition home or self-care (01) ==
PROVIDERS: Emergency Provider Emergency Medicine; PCP Family Medicine
DX: Z95.1 Presence of aortocoronary bypass graft; Z95.5 Presence of coronary angioplasty implant and graft; R07.9 Chest pain, unspecified
CPT/HCPCS: 71045; 80053; 83690; 83880; 84484; 85025; 93005; 99285

== ENCOUNTER → 2023-01-21 13:18 | Outpatient (BNVA) | payer MEDICARE, SELFPAY | PROVIDERS: PCP Family Medicine; Visit Provider Anesthesiology Pain Medicine | DX: M19.011 Primary osteoarthritis, right shoulder (principal); I25.10 Atherosclerotic heart disease of native coronary artery without angina pectoris; Z87.891 Personal history of nicotine dependence | CPT/HCPCS: 20610; 64418; 77002; J1030; J3490 ==

== ENCOUNTER → 2023-01-25 09:43 | Outpatient (BNVA) | payer MEDICARE, SELFPAY | PROVIDERS: PCP Family Medicine; Visit Provider Student in an Organized Health Care Education/Training Program | DX: T84.038D Mechanical loosening of other internal prosthetic joint, subsequent encounter (principal); Y79.2 Prosthetic and other implants, materials and accessory orthopedic devices associated with adverse incidents; Z96.611 Presence of right artificial shoulder joint | CPT/HCPCS: 99213 ==

== ENCOUNTER 2023-02-04 10:56 | Outpatient (CLI) | payer MEDICARE, SELFPAY ==
--- NOTE | 2023-02-04 12:41 | XRR_ITS ---
PROCEDURE INFORMATION: Exam: XR Chest Exam date and time: 02/04/2023 12:42 PM Age: 67 years old Clinical indication: Condition or disease; Lung condition and disease; Other: Rll opacity; Prior surgery; Surgery type: Cabg; Patient HX: PT states that the rll had an abnormal nodule in prior xrays but was not seen in the last image that was taken. This is a follow up to see if there is anything truly there TECHNIQUE: Imaging protocol: Radiologic exam of the chest. Views: 2 views. COMPARISON: CR XR chest 1V portable [id number] 01/16/2023 2:09 PM FINDINGS: Lungs: Previously noted indistinct nodular consolidative density right lung base has almost completely resolved. There is interval development of scattered nodularity right mid to lower lung zone with multiple small nodular opacities now present, possibly granulomatous in nature. Left lung field remains aerated and clear. Pleural spaces: Unremarkable. No pleural effusion. No pneumothorax. Heart/Mediastinum: Unremarkable. No cardiomegaly. Bones/joints: Patient has undergone prior median sternotomy and CABG. There are stable degenerative changes in the thoracic spine. Patient has undergone prior right shoulder replacement. XR/XR chest 2V* [id number] IMPRESSION: Interval development of scattered nodularity right mid to lower lung zone that may be secondary to active granulomatous process.. Continued follow-up or CT chest recommended for further evaluation.
== END 2023-02-04 10:57 | disposition home or self-care (01) ==
PROVIDERS: PCP Family Medicine; Visit Provider Anesthesiology Pain Medicine
DX: M25.511 Pain in right shoulder (principal); Z96.611 Presence of right artificial shoulder joint
CPT/HCPCS: 71046; 99214

== ENCOUNTER → 2023-02-06 14:18 | Outpatient (BNVA) | payer MEDICARE, SELFPAY | PROVIDERS: PCP Family Medicine; Visit Provider Otolaryngology | DX: H90.6 Mixed conductive and sensorineural hearing loss, bilateral (principal); H93.13 Tinnitus, bilateral | CPT/HCPCS: 99213; 99214 ==

== ENCOUNTER 2023-02-12 14:49 | Outpatient (CLI) | payer MEDICARE, SELFPAY ==
--- NOTE | 2023-02-12 15:02 | MM_ITS ---
WS: [id number] BILATERAL 3D TOMOSYNTHESIS DIGITAL SCREENING MAMMOGRAPHY WITH CAD CLINICAL INFORMATION: SCREENING HISTORY: Screening mammogram. No current complaints. COMPARISON: 2021 TECHNIQUE: Bilateral CC and MLO views. FINDINGS: Scattered fibroglandular densities bilaterally. No suspicious focal mass, asymmetry, calcifications, or architectural distortion. No evidence of malignancy. Punctate and lucent centered calcifications. MM/[place] [id number] IMPRESSION: BI-RADS: 2-Benign FOLLOW UP: 1 Year Follow-up Recommend return to annual screening mammography.
== END 2023-02-12 14:50 | disposition home or self-care (01) ==
PROVIDERS: PCP Family Medicine; Visit Provider Family Medicine
DX: Z12.31 Encounter for screening mammogram for malignant neoplasm of breast (principal)
CPT/HCPCS: 77063; 77067

== ENCOUNTER 2023-02-13 14:47 | Outpatient (CLI) | payer MEDICARE, SELFPAY ==
--- NOTE | 2023-02-13 15:00 | CT_ITS ---
WS: [id number] CT CHEST WITH INTRAVENOUS CONTRAST HISTORY: Nodule and possible granulomatous disease on chest x-ray TECHNIQUE: Contiguous 5 mm axial imaging performed on the thorax. Coronal and sagittal reformats are submitted. All CT scans at [facility] use at least one of these dose optimization techniques: automated exposure control; mA and/or kV adjustment per patient size (includes targeted exams where dose is matched to clinical indication); or iterative reconstruction. CONTRAST: Omnipaque 350; 100 mL IV. DLP: 388.18 mGy.cm COMPARISON: Chest radiographs 02/04/2023. Prior CT 09/08/2022 Lungs and central airway: Breathing motion artifact. Innumerable, bilateral, but greatest throughout the RIGHT lung are multiple pulmonary nodules. Small micronodules and additional nodules measuring up to 6 mm. Dense areas of consolidation noted on the CT of 09/08/2022 have resolved. Residual small linda ronodules and a few areas of groundglass attenuation. Pleura: Normal. No pleural effusion. Heart and pericardium: Mild cardiomegaly with no pericardial effusion. Very heavy calcification in th e coronary arteries. Prior CABG. Mediastinum and vandana: High RIGHT paratracheal lymph node measures 8 mm. No enlarged lymph nodes. Vessels: Moderate atherosclerotic plaque within the aorta and proximal great vessels. Pulmonary arter y is dilated at 3.2 cm. Chest wall and lower neck: Mild enlargement of the thyroid with multiple nodules. The largest nodule LEFT thyroid measures 14 mm. Upper abdomen: Moderate size hiatal hernia. No adrenal mass. Prior cholecystectomy. Physiologic dilat ation of the common bile duct. Osseous structures: No destructive process. CT/CT chest w con* [id number] IMPRESSION: 1. Numerous small subcentimeter nodules throughout both lungs but greatest thr oughout the RIGHT lung. Differential includes hematogenous metastatic disease, miliary TB or fungal infections. Less likely sarcoidosis with no mediastinal ly mph nodes of significance. Some of these nodules are in a slight tree-in-bud ai rspace distributions suggesting endobronchial pneumonia. 2. No adenopathy. 3. CABG. 4. Multinodular thyroid goiter. Ultrasound evaluation may be indicated to excl ude suspicious thyroid lesion. 5. Prior cholecystectomy.
[2023-02-13] MEDS: iohexol 350 mg/mL 100 mL Btl IV (15:25)
== END 2023-02-13 14:48 | disposition home or self-care (01) ==
LOC: RAD 14:50
PROVIDERS: PCP Family Medicine; Visit Provider Family Medicine
DX: R93.89 Abnormal findings on diagnostic imaging of other specified body structures (principal)
CPT/HCPCS: 71260; Q9967

== ENCOUNTER 2023-02-14 09:59 | Outpatient (CLI) | payer MEDICARE, SELFPAY ==
--- NOTE | 2023-02-14 | ECG_ITS ---
[facility] Test Date: 2023-02-14 Pat Name: Rebecca Coombs Department: Room: Gender: Female Serology Technician: Zo Scherer : 1955 Requested By: Natalie Pearson Order Number: [id number] Alicia MD: Olga Garza M.D. Interpretive Statements NAME OF STUDY: LEXISCAN SESTAMIBI STRESS TEST INDICATION: Chest Pain, PROCEDURE: At the baseline, the EKG revealed normal sinus rhythm with nonspecific ST-T changes in the anterolateral leads. Features of possible old inferior wall CO.. The baseline heart was 69 bpm with a blood pressue of 110/73 mm of Hg Lexiscan was infused over a period of 20 seconds. A total of 0.4 milligrams of Lexiscan was infused. The stress phase was continued for a total of 5 minutes. Heart rate at the end of the stress phase was 75 bpm with a blood pressure 89/56 mm of Hg. The EKG at the peak infusion revealed no significant changes. Sestamibi was injected 20 seconds after the Lexiscan infusion. Heart rate at the end of the recovery phase was 74 bpm with a blood pressure of 96/59 mm of Hg. CONCLUSION: 1. No significant EKG changes with the LexiScan infusion 2. No LexiScan induced chest pain or cardiac arrhythmia 3. Normal blood pressure and heart rate response 4. Sestamibi/sestamibi perfusion scan pending; see separate report. Electronically Signed On 02-15-2023 13:19:08 CDT by Olga Garza M.D. [id number]
[2023-02-14 10:12] VITALS: BMI 28.4
--- NOTE | 2023-02-14 11:06 | NMCV_ITS ---
NM siomara perf SPECT r/s* [id number] Rebecca Coombs Age: 67 Gender: F : 1955 Exam Date: 02/14/2023 11:31 Ordering Phys: Natalie Pearson Technologist: PRIYA Cabrera Exam Location: [facility] Indications: ATHEROSCLEROTIC HEART DISEASE STRESS TEST Please [facility] IMAGE PROTOCOL Rest/Stress 1 Lexiscan Day Radiopharmaceutical Dose (mCi) Administration Site Administered by Rest: Tc-99m 10.5 IV PRIYA Ordoñez Sestamibi Stress:Tc-99m 32.2 IV PRIYA Ordoñez Sestamibi Rest: 14-Feb-2023 60 Discovery 630 Stress: 14-Feb-2023 30 Discovery 630 0.4mg Lexiscan. Images obtained in supine and prone position. SPECT RESULTS Technical Quality: Excellent Raw Data Analysis: Normal Image Corrections: No attenuation or motion correction applied Summed Stress Score: 24 Summed Rest Score: 13 Summed Difference Score: 11 PERFUSION FINDINGS Moderate to large area of moderate to severely decreased tracer uptake in the basal and mid anterolateral, basal and mid inferolateral, mid anterior and all the apical segments. Significant reversibility was noted in all these regions FUNCTIONAL RESULTS (calculated via Gated SPECT) Stress Image LV EF (%): 62 Stress EDV (mL):94 TID: 1.04 Stress ESV (mL):36 FUNCTIONAL FINDINGS: Segmental wall motion analysis revealing mild hypokinesia of the LV apex. IMPRESSIONS 1. Myocardial perfusion imaging revealing moderate to large area of moderate to severely decreased tracer uptake in the anterolateral, inferolateral, mid anterior and apical regions with significant reversibility, suggesting myocardial scarring with ischemia in the distribution of the left circumflex artery and left anterior descending artery, predominantly with some involvement of the right coronary artery as well. 2. Normal LV ejection fraction 62 %. 3. LV wall motion abnormalities as mentioned above 4. Normal LV volume Compared to the study from 01/15/2022, there may not be a significant change Compared to the study from, 01/15/2022, there may not be a significant change Dr Olga Garza MD [facility] (Electronically Signed) Final Date: 14 February 2023 16:26 S
[2023-02-14] MEDS: regadenoson 0.4 Mg/5 ml Syringe IVP (11:50)
[2023-02-14 12:00] VITALS: BP 96/56; PULSE 74
== END 2023-02-14 10:00 | disposition home or self-care (01) ==
PROVIDERS: PCP Family Medicine; Visit Provider Nurse Practitioner Family
DX: I25.10 Atherosclerotic heart disease of native coronary artery without angina pectoris (principal); Z87.891 Personal history of nicotine dependence
CPT/HCPCS: 36415; 78452; 93017; 96374; 99214; A9500; J2785

== ENCOUNTER → 2023-02-21 10:59 | Outpatient (BNVA) | payer MEDICARE, SELFPAY | PROVIDERS: PCP Family Medicine; Visit Provider Internal Medicine Pulmonary Disease | DX: R91.8 Other nonspecific abnormal finding of lung field (principal); J44.9 Chronic obstructive pulmonary disease, unspecified; J69.0 Pneumonitis due to inhalation of food and vomit; Z91.89 Other specified personal risk factors, not elsewhere classified; I25.10 Atherosclerotic heart disease of native coronary artery without angina pectoris; K44.9 Diaphragmatic hernia without obstruction or gangrene; Z87.891 Personal history of nicotine dependence; Z98.61 Coronary angioplasty status | CPT/HCPCS: 99204 ==

== ENCOUNTER → 2023-02-25 14:43 | Outpatient (BNVA) | payer MEDICARE, SELFPAY | PROVIDERS: PCP Family Medicine; Visit Provider Anesthesiology Pain Medicine | DX: M19.011 Primary osteoarthritis, right shoulder | CPT/HCPCS: 64640; 77002; J1030 ==

== ENCOUNTER → 2023-03-14 11:05 | Outpatient (BNVA) | payer MEDICARE, SELFPAY | PROVIDERS: PCP Family Medicine; Visit Provider Anesthesiology Pain Medicine | DX: M54.16 Radiculopathy, lumbar region (principal); M19.011 Primary osteoarthritis, right shoulder; M19.012 Primary osteoarthritis, left shoulder | CPT/HCPCS: 99213 ==

== ENCOUNTER 2023-04-01 08:29 | Outpatient (CLI) | payer MEDICARE, SELFPAY ==
--- NOTE | 2023-04-01 09:15 | FL_ITS ---
WS: [id number] FL barium swallow [id number] REASON FOR EXAM: Hiatal hernia, possible aspiration pneumonia. FLUOROSCOPY TIME: 2min [id number] # OF SPOT FILMS: 81 FINDINGS: Swallowing of barium was evaluated in the upright, prone NEGRON, and supine positions. In the upright position the esophageal motility is relatively normal and there is a small sliding hia rafa hernia without significant Schatzki ring or stricture. In the prone NEGRON position the hiatal hernia becomes more prominent and there are mild intermittent te rtiary contractions. When the patient was turned from the NEGRON position to the supine position there was significant reflux from the barium filled stomach into the esophagus to the level of the thoracic inlet. Mild intermitt ent tertiary contractions were identified. Patient noted pressure, and the need to belch . FL/FL barium swallow [id number] IMPRESSION: Moderate relatively patulous hiatal hernia. There is significant reflux when the patient is placed in the supine with full stomach. No aspiration was identified and there was no coughing or choking. CT scan of the chest 02/13/2023 demonstrates multifocal lung abnormalities varia ble in character which may indicate more than one lung process. Distribution of the abnormalities compatible with aspiration are within the lower lobes, atypi zaheer distribution for chronic aspiration pneumonia. Follow-up noncontrast CT scan of the chest could prove useful.
== END 2023-04-01 08:30 | disposition home or self-care (01) ==
PROVIDERS: PCP Family Medicine; Visit Provider Internal Medicine Pulmonary Disease
DX: T17.908A Unspecified foreign body in respiratory tract, part unspecified causing other injury, initial encounter (principal); J43.9 Emphysema, unspecified; K44.9 Diaphragmatic hernia without obstruction or gangrene; K21.9 Gastro-esophageal reflux disease without esophagitis
CPT/HCPCS: 71046; 74220

== ENCOUNTER 2023-04-04 10:04 | Outpatient (CLI) | payer MEDICARE, SELFPAY ==
[2023-04-04 10:23] VITALS: PULSE 79; RESP 18; O2SAT 96
[2023-04-04] MEDS: albuterol 2.5 mg/3 mL Neb INHALATION (10:23)
[2023-04-04 10:28] VITALS: PULSE 83
== END 2023-04-04 10:05 | disposition home or self-care (01) ==
LOC: RT 10:05
PROVIDERS: PCP Family Medicine; Visit Provider Internal Medicine Pulmonary Disease
DX: R91.8 Other nonspecific abnormal finding of lung field (principal); J44.9 Chronic obstructive pulmonary disease, unspecified; Z72.0 Tobacco use
CPT/HCPCS: 94060; 94618; 94726; 94729; J7613

== ENCOUNTER 2023-04-16 13:44 | Outpatient (RCR) | payer MEDICARE, SELFPAY | END 2023-05-01 23:59 | disposition home or self-care (01) | LOC: SST 13:44 | PROVIDERS: PCP Family Medicine; Visit Provider Internal Medicine Pulmonary Disease | DX: R93.3 Abnormal findings on diagnostic imaging of other parts of digestive tract (principal) | CPT/HCPCS: 92610 ==

== ENCOUNTER 2023-04-30 16:06 | Inpatient (IN) | payer MEDICARE, SELFPAY ==
[2023-04-30 16:23] VITALS: BP 118/73; PULSE 95; RESP 16; TEMP 36.8; O2SAT 90
--- NOTE | 2023-04-30 16:26 | XRR_ITS ---
PROCEDURE INFORMATION: Exam: XR Chest Exam date and time: 04/30/2023 3:32 PM Age: 68 years old Clinical indication: Dyspnea; Additional info: Dyspnea hypoxia TECHNIQUE: Imaging protocol: Radiologic exam of the chest. Views: 1 view. COMPARISON: CR XR chest 2V* [id number] 04/01/2023 2:48 PM FINDINGS: Lungs: Lungs are mildly hyperinflated. Airspace disease demonstrated in the medial aspect of the right upper lobe and at the bilateral lung bases, suspicious for pneumonia versus asymmetric pulmonary edema. Pleural spaces: No pleural effusion. No pneumothorax. 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 Vasculature: The thoracic aorta is atherosclerotic. Bones/joints: Right shoulder prosthesis noted. Median sternotomy noted. Degenerative thoracic spine changes. XR/XR chest 1V portable [id number] IMPRESSION: 1. Airspace disease demonstrated in the medial aspect of the right upper lobe and at the bilateral lung bases, suspicious for pneumonia versus asymmetric pulmonary edema. This is new when compared to XR chest dated 04/01/2023. 2. Recommend follow-up XR chest after treatment to confirm complete resolution of these infiltrates.
[2023-04-30 16:32] LABS: ABG PCO2 32.7 mmHg (35-45); ABG PH Result 7.33 (7.35-7.45); Arterial Blood Gas Hematocrit 36.1 % (37-47); Blood Gas Allen Test Pos; Blood Gas Operator Identificat AMH; Blood Gas Sample Site Radial, left; Blood Gas Sample Type Arterial; Carboxyhemoglobin 1.5 %THgb (0.4-20.1); HCO3 ABG 17.1 mmol/L (22-26); HGB O2 Sat 88.8 % (95-100); Methemoglobin 0.6 % (0.4-1.5); Oxygen Device NC; PO2 ABG 60.6 mmHg (80.0-100.0); Total Hemoglobin 11.8 g/dL (12-16)
--- NOTE | 2023-04-30 16:35 | ECG_ITS ---
[facility] Test Date: 2023-04-30 Pat Name: Rebecca Coombs Department: Room: Gender: Female [employer]: : 1955 Requested By: Pedro Poole Order Number: [id number] Alicia MD: Tram Goldberg M.D. Measurements Intervals Marshall Rate: 91 P: 67 VT: 179 QRS: 50 QRSD: 98 T: 74 QT: 383 QTc: 472 Interpretive Statements SINUS RHYTHM POSSIBLE LEFT ATRIAL ENLARGEMENT [-0.1mV P-WAVE IN V1/V2] Compared to ECG 01/16/2023 17:05:32 First degree AV block no longer present T-wave abnormality no longer present Possible ischemia no longer present Electronically Signed On 04-30-2023 16:38:44 CDT by Tram Goldberg M.D. [id number]
[2023-04-30 16:39] VITALS: PULSE 91; RESP 24; O2SAT 92
[2023-04-30] MEDS: levalbuterol 1.25 mg/3 mL Neb INHALATION (16:39)
--- NOTE | 2023-04-30 16:43 | PC.NURSE ---
PT PLACED ON CONTINUOUS SPO2, NIBP, AND CM.
[2023-04-30 16:48] LABS: Basophils # 0.1 10^3/uL (0.0-0.1); Basophils % 0.6 %; Eosinophils # 0.2 10^3/uL (0.0-0.8); Eosinophils % 1.1 %; Hematocrit 38.6 % (37.0-47.0); Hemoglobin 11.9 g/dL (11.5-15.3); Lymphocytes # 0.9 10^3/uL (0.8-4.8); Mean Corpuscular HGB Conc 30.8 g/dL (30.0-36.0); Mean Corpuscular Volume 90.8 fl (81-99); Mean Platelet Volume 10.3 fL (7.4-10.4); Monocytes # 0.7 10^3/uL (0.2-0.9); Neutrophils # 12.45 10^3/uL (1.8-7.7); Neutrophils % 85.6 %; Nucleated Red Blood Cells % 0 %; Platelet Count 392 10^3/cmm (130-400); Red Blood Count 4.25 10^6/uL (4.1-5.3); Red Cell Distribution Width 14.1 % (12.1-15.1); White Blood Count 14.5 10^3/uL (4.0-10.0)
--- NOTE | 2023-04-30 16:53 | ED_ITS ---
Documented by User: Pedro Poole DO 05/01/23 07:06 HPI - SOB/Dyspnea General: Chief Complaint: Shortness of Breath/Dyspnea Stated Complaint: RESP. DISTRESS Time Seen by Provider: 04/30/23 16:12 History of Present Illness: HPI Narrative: Patient presents to the ER with shortness of breath and hypoxia. Patient was found on the floor with decreased level of consciousness after she called 911. EMS had to break down the door to get in. Once a put the patient on oxygen she became more responsive. Patient does not wear oxygen at home but does use Xopenex nebulizers. Patient currently on 4 L of oxygen per nasal cannula keeping her sat up at about 91%. Patient does have a history of COPD. Patient does look jaundiced. Patient has wounds on both her knees due to lying on the floor. MD elicited complaint: shortness of breath Pertinent past history: COPD Onset (ago): day(s) (Met 2 days ago patient started going downhill) Timing: constant and progressively worsening Severity: moderate Exacerbating factors: nothing Relieving factors: oxygen Known history of: COPD Associated symptoms: Reports no associated symptoms Treatment prior to arrival: oxygen Review of Systems General: Reports: 10 or more systems reviewed and unremarkable except in HPI and below PFSH ED PFSH: Medical History Bladder prolapse COPD (chronic obstructive pulmonary disease) Coronary artery disease Cystocele with prolapse HTN (hypertension) Hypercholesterolemia Incomplete prolapse of vaginal vault Ischemic bowel disease Major depressive disorder, recurrent, in full remission Myocardial infarction Osteoarthritis of shoulders, bilateral Palpitations Panic disorder 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 History of right shoulder replacement Hx of appendectomy S/p bilateral carpal tunnel release S/P CABG x 4 S/P right hemicolectomy 01/01/2020 Status post colonoscopy Status post laparoscopic cholecystectomy 01/01/2020 Status post reverse total arthroplasty of right shoulder Family History Daughter Diabetes Sister Diabetes x3 Brother Diabetes Son Hypertension Family/Other Thyroid condition granddaughter Mother Heart disease Denies family history of Colon cancer Ovarian cancer Clotting disorder Hyperlipidemia Breast cancer Anesthesia complication Bleeding disorder Uterine cancer Stroke Social History Smoking and tobacco status: former smoker (quit smoking 12/2021 ) Quit status (tobacco): has quit using tobacco Year quit tobacco: 12/2021 Former quit date comment: 2 ppd X 30 years Second hand smoke exposure: No Smoking risk assessment/counseling performed?: No Alcohol intake: never Desire information about alcohol rehabilitation?: No Counseling given: No Substance/Drug Use: never Desire information about substance/drug rehabilitation?: No Counseling given: No Current occupational status: retired Physical Exam Const: COMMON NORMALS: no acute distress, average body habitus, patient oriented x3, no limitations, healthy appearing and well nourished HENMT: COMMON NORMALS: normocephalic, atraumatic, hearing grossly normal bilaterally, external ears normal, Normal external nose present and moist oral mucous membranes HEAD & SCALP: normocephalic and atraumatic NOSE: Normal external nose present EXTERNAL EAR: Yes external ears normal Eye: COMMON NORMALS: Equal, round and reactive pupils present, EOMs intact bilaterally, conjunctivae normal and no scleral icterus CONJUNCTIVA: Yes conjunctivae normal PUPIL: Yes Equal, round and reactive pupils present Neck/C-Spine: COMMON NORMALS: full ROM, no lymphadenopathy, supple, no meningeal signs, no JVD and Thyroid normal THYROID: Thyroid normal Chest: COMMONS NORMALS: normal inspection of the chest and normal palpation of entire chest wall Resp: EFFORT & INSPECTION: Yes able to speak in complete sentences, Yes symmetric chest movement and Yes tachypneic AUSCULTATION: rhonchi and wheezes Cardio: COMMON NORMALS: no JVD, regular rate, regular rhythm, S1 normal heart sound present, S2 normal heart sound present, No gallops present (Cardio), No clicks present (Cardio), No murmurs present (Cardio) and No rub (Cardio) RATE: regular rate RHYTHM: regular rhythm HEART SOUNDS: S1 normal heart sound present and S2 normal heart sound present GI: COMMON NORMALS: Normal to inspection, nondistended, normoactive bowel sounds present, Soft to palpation, non-tender, No hepatosplenomegaly present and no masses PALPATION: Yes Soft to palpation and Yes No hepatosplenomegaly present : COMMON NORMALS: Yes no CVA tenderness BLADDER/KIDNEY EXAM: Yes no CVA tenderness Back/Pelvis: COMMON NORMALS: no CVA tenderness Extremity: NARRATIVE EXTREMITY EXAM: 1+ trace pitting edema bilateral lower extremities, patient appears to have some abrasion/skin tears on her bilateral knees. Neuro: COMMON NORMALS: patient oriented x3 MENINGEAL SIGNS: Yes no meningeal signs Course Vital Signs: Vital signs: Vital Signs Temperature 98.5 F 05/05/23 16:00 Pulse Rate 71 05/05/23 16:00 Respiratory Rate 16 05/05/23 16:00 Blood Pressure 90/57 05/05/23 16:00 Pulse Oximetry 93 05/05/23 16:00 Oxygen Delivery Me thod Room Air 05/05/23 16:00 Oxygen Flow Rate 3 05/05/23 13:30 Fraction of Inspir ed Oxygen 40 04/30/23 19:25 MDM - SOB/Dyspnea Medical Decision Making Patient presents to the ER after being found in respiratory distress hypoxic with a decreased LOC. Patient was placed on 4 L of oxygen per nasal cannula, patient does have a history of COPD, lab work was obtained which revealed a white count of 14.5, BUN/creatinine of 33 and 1.2, AST 351, ALT of 167, urinalysis was positive for 1+ ketones 2+ protein 3+ blood positive for nitrates trace leukocyte Estrace 5-10 white blood cells, ABGs revealed a pH of 7.3 PCO2 32.7 PO2 of 60.6 and bicarb of 17.1. Chest x-ray revealed airspace disease in t he medial aspect of the right upper lobe bilateral lung bases suspicious for pneumonia versus asymmetric pulmonary edema. Ultrasound of the liver was obtained which showed no acute findings. Is anticipated this person will be admitted for pneumonia, acute hypoxic respiratory failure, and pulmonary edema. Differential Diagnosis Likely acute exacerbation of chronic obstructive airways disease; Unlikely congestive heart failure, community acquired pneumonia, asthma with exacerbation or pulmonary embolism Medical Records I reviewed the patient's medical records. Lab Data I reviewed the patient's lab results. 05/04/23 03:16 05/04/23 03:16 Labs/Radiology: Radiology Impressions Liver Ultrasound 05/01/23 00:52 IMPRESSION: No acute findings. ADDENDUM: 05/01/23 0553 The common bile duct is within normal limit. No intrahepatic biliary ductal dilation. The right kidney is unremarkable. Lumbar Spine MRI 05/03/23 10:53 IMPRESSION: Overall no significant changes since September 22, 2021 1. Mild lumbar curve. No acute compression. 2. Mild central canal stenosis L4-L5 with small central disc protrusion with impingement on traversing RIGHT L5 nerve root in the subarticular recess. Mild RIGHT L4-L5 foraminal narrowing. 3. Mild annular bulging L3-L4 with slight narrowing of the subarticular recess. 4. Small amount of edema in the L3-L4, LEFT L4-L5 and LEFT L5-S1 facets likely degenerative. 5. Lobulated infrarenal abdominal aortic aneurysm appears slightly progressed compared to the CTa in 2019 previously measuring 3.1 x 3.1 cm. Today largest component measures 3.4 x 3.5 cm Chest X-Ray 05/03/23 10:55 IMPRESSION: 1. Improved bibasal infiltrates since the last exam. There is still significant infiltrate in the medial aspect of the right lung. Laboratory Results WBC 14.5 10^3/uL (4.0-10.0) H 04/30/23 16:20 RBC 4.25 10^6/uL (4.1-5.3) 04/30/23 16:20 Hgb 11.9 g/dL (11.5-15.3) 04/30/23 16:20 Hct 38.6 % (37.0-47.0) 04/30/23 16:20 MCV 90.8 fl (81-99) 04/30/23 16:20 MCH 28.0 pg (28.0-34.0) 04/30/23 16:20 MCHC 30.8 g/dL (30.0-36.0) 04/30/23 16:20 RDW 14.1 % (12.1-15.1) 04/30/23 16:20 Plt Count 392 10^3/cmm (130-400) 04/30/23 16:20 MPV 10.3 fL (7.4-10.4) 04/30/23 16:20 Neut % (Auto) 85.6 % 04/30/23 16:20 Lymph % (Auto) 6.0 % 04/30/23 16:20 Lamb % (Auto) 5.0 % 04/30/23 16:20 Eos % (Auto) 1.1 % 04/30/23 16:20 Baso % (Auto) 0.6 % 04/30/23 16:20 Neut # (Auto) 12.45 10^3/uL (1.8-7.7) H 04/30/23 16:20 Lymph # (Auto) 0.9 10^3/uL (0.8-4.8) 04/30/23 16:20 Lamb # (Auto) 0.7 10^3/uL (0.2-0.9) 04/30/23 16:20 Eos # (Auto) 0.2 10^3/uL (0.0-0.8) 04/30/23 16:20 Baso # (Auto) 0.1 10^3/uL (0.0-0.1) 04/30/23 16:20 Nucleated RBC % (auto) 0 % 04/30/23 16:20 Nucleated RBCs # 0.0 /100WBC 04/30/23 16:20 PT 14.60 SECONDS (12.1-14.9) 04/30/23 16:20 INR 1.10 (0.8-1.2) 04/30/23 16:20 Specimen Type Arterial 04/30/23 16:20 Sample Site Radial, left 04/30/23 16:20 ABG pH 7.33 (7.35-7.45) L 04/30/23 16:20 ABG pCO2 32.7 mmHg (35-45) L 04/30/23 16:20 ABG pO2 60.6 mmHg (80.0-100.0) L 04/30/23 16:20 ABG HCO3 17.1 mmol/L (22-26) L 04/30/23 16:20 ABG Base Excess -8.0 mmol/L (-2.0-2.0) L 04/30/23 16:20 Elmer Test Pos 04/30/23 16:20 Hematocrit 36.1 % (37-47) L 04/30/23 16:20 Hgb O2 Saturation 88.8 % (95-100) L 04/30/23 16:20 Carboxyhemoglobin 1.5 %THgb (0.4-20.1) 04/30/23 16:20 Methemoglobin 0.6 % (0.4-1.5) 04/30/23 16:20 Total Hemoglobin 11.8 g/dL (12-16) L 04/30/23 16:20 O2 Delivery Device Nc 04/30/23 16:20 O2 Liters/Min 4.0 % 04/30/23 16:20 FiO2 36.0 % 04/30/23 16:20 Rap Artist ID [email or web address] 04/30/23 16:20 Sodium 135 mmol/L (136-145) L 04/30/23 16:20 Potassium 4.2 mmol/L (3.5-5.1) 04/30/23 16:20 Chloride 100 mmol/L (98-107) 04/30/23 16:20 Carbon Dioxide 16 mmol/L (22-29) L 04/30/23 16:20 Anion Gap 23.2 (5-19) H 04/30/23 16:20 BUN 36 mg/dL (8-23) H 04/30/23 16:20 Creatinine 1.7 mg/dL (0.5-0.9) H 04/30/23 16:20 GFR Calculation 29.8 mL/min (90-130) L 04/30/23 16:20 Glucose 72 mg/dL (65-115) 04/30/23 16:20 Calculated Osmolality 287 mOsm/kg (285-295) 04/30/23 16:20 Lactic Acid 3.9 mmol/L (0.5-2.2) H 04/30/23 16:20 Lactic Acid (Sepsis) 2.2 mmol/L (0.5-2.2) 04/30/23 19:55 Calcium 9.3 mg/dL (8.5-10.5) 04/30/23 16:20 Magnesium 2.3 mg/dL (1.7-2.3) 04/30/23 16:20 Total Bilirubin 0.6 mg/dL (0.15-1.2) 04/30/23 16:20 AST 116 U/L (0-32) H 04/30/23 16:20 ALT 104 U/L (0-33) H 04/30/23 16:20 Alkaline Phosphatase 120 U/L (35-105) H 04/30/23 16:20 Troponin T Baseline 32 ng/L (0-10) H 04/30/23 16:20 Troponin T 120 Minute 29.68 ng/L (0-10) H 04/30/23 18:15 Delta Troponin T -2.32 ABS# (0-10) L 04/30/23 18:15 NT-Pro-B Natriuret Pep 8736 pg/mL (0-125) H 04/30/23 16:20 Total Protein 7.8 g/dL (6.6-8.7) 04/30/23 16:20 Albumin 3.8 g/dL (3.5-5.2) 04/30/23 16:20 Globulin 4.0 g/dL (1.3-4.6) 04/30/23 16:20 Procalcitonin 96.44 ng/mL (0-0.5) H 04/30/23 16:20 Urine Color Dark yellow (Yellow) 04/30/23 18:46 Urine Appearance Hazy (CLEAR) A 04/30/23 18:46 Urine pH 5 (5-7) 04/30/23 18:46 Ur Specific [place] 1.015 (1.005-1.030) 04/30/23 18:46 Urine Protein 2+ (Negative) H 04/30/23 18:46 Urine Glucose (UA) Norm (Normal) 04/30/23 18:46 Urine Ketones 1+ (Negative) H 04/30/23 18:46 Urine Blood 3+ (Negative) H 04/30/23 18:46 Urine Nitrate Positive (Negative) H 04/30/23 18:46 Urine Bilirubin 1+ (Negative) H 04/30/23 18:46 Urine Urobilinogen 1 mg/dL (Negative) H 04/30/23 18:46 Ur Leukocyte Esterase Trace (Negative) H 04/30/23 18:46 Urine RBC 0-4 /hpf (0-2) H 04/30/23 18:46 Urine WBC 5-10 /hpf (0-5) H 04/30/23 18:46 Ur Squamous Epith Cells 0-4 /hpf (0-5) H 04/30/23 18:46 Amorphous Sediment 1+ /hpf 04/30/23 18:46 Urine Bacteria 1+ /hpf (NONE) H 04/30/23 18:46 Hyaline Casts 5-10 /lpf H 04/30/23 18:46 Coarse Granular Casts 5-10 /lpf H 04/30/23 18:46 Urine Mucus Trace /hpf 04/30/23 18:46 Nasal Influ A H1 2009 PCR Not detected (NOT DETECT) 04/30/23 18:08 Adenovirus (PCR) Not detected (NOT DETECT) 04/30/23 18:08 C. pneumoniae DNA (PCR) Not detected (NOT DETECT) 04/30/23 18:08 Coronavirus 229E (PCR) Not detected (NOT DETECT) 04/30/23 18:08 Human Metapneumovir PCR Not detected (NOT DETECT) 04/30/23 18:08 Influenza A (H1) PCR Not detected (NOT DETECT) 04/30/23 18:08 Influenza A (H3) PCR Not detected (NOT DETECT) 04/30/23 18:08 Influenza Type A (PCR) Not detected (NOT DETECT) 04/30/23 18:08 Influenza Type B (PCR) Not detected (NOT DETECT) 04/30/23 18:08 M. pneumoniae (PCR) Not detected (NOT DETECT) 04/30/23 18:08 Parainfluenza 1 (PCR) Not detected (NOT DETECT) 04/30/23 18:08 Parainfluenza 2 (PCR) Not detected (NOT DETECT) 04/30/23 18:08 Parainfluenza 3 (PCR) Not detected (NOT DETECT) 04/30/23 18:08 Parainfluenza 4 (PCR) Not detected (NOT DETECT) 04/30/23 18:08 RSV Type A (PCR) Not detected (NOT DETECT) 04/30/23 18:08 RSV Type B (PCR) Not detected (NOT DETECT) 04/30/23 18:08 Entero/Rhino (PCR) Not detected (NOT DETECT) 04/30/23 18:08 SARS-CoV-2 (PCR) Not detected (NOT DETECT) 04/30/23 18:08 EKG Data EKG 1: I personally reviewed and interpreted this EKG as follows: EKG Interpretation Date: 04/30/23 EKG interpretation time: 16:35 Prior EKG tracings: not available for review Interpretation: EKG showed ventricular rate 91 bpm, MD interval 179, QRS duration 98, QTc of 432, sinus rhythm, possible inferior [place] probably old with posterior extension Q waves in 2 aVF prominent R wave in V1 V2, Discharge Plan Discharge Patient Disposition: Admitted As Inpatient Admit Provider: Theresa Mccollum Clinical Impression: Pneumonia, Congestive heart failure, Acute hypoxemic respiratory failure, GEOVANNY (acute kidney injury) Condition: Stable Discharge Diet: Advance as tolerated, Usual diet and Cardiac Discharge Activity: Resume usual activity and Increase activity as tolerated Coding Level of Care Code ED Safety And Occupational Health Manager for Chg Fwd Documented by User: Celso Jacques MD 05/13/23 11:45 HPI - SOB/Dyspnea General: Chief Complaint: Shortness of Breath/Dyspnea Stated Complaint: RESP. 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 History of right shoulder replacement Hx of appendectomy S/p bilateral carpal tunnel release S/P CABG x 4 S/P right hemicolectomy 01/01/2020 Status post colonoscopy Status post laparoscopic cholecystectomy 01/01/2020 Status post reverse total arthroplasty of right shoulder Family History Daughter Diabetes Sister Diabetes x3 Brother Diabetes Son Hypertension Family/Other Thyroid condition granddaughter Mother Heart disease Denies family history of Colon cancer Ovarian cancer Clotting disorder Hyperlipidemia Breast cancer Anesthesia complication Bleeding disorder Uterine cancer Stroke Social History Smoking and tobacco status: former smoker (quit smoking 12/2021 ) Quit status (tobacco): has quit using tobacco Year quit tobacco: 12/2021 Former quit date comment: 2 ppd X 30 years Second hand smoke exposure: No Smoking risk assessment/counseling performed?: No Alcohol intake: never Desire information about alcohol rehabilitation?: No Counseling given: No Substance/Drug Use: never Desire information about substance/drug rehabilitation?: No Counseling given: No Current occupational status: retired Course Vital Signs: Vital signs: Vital Signs Temperature 98.5 F 05/05/23 16:00 Pulse Rate 71 05/05/23 16:00 Respiratory Rate 16 05/05/23 16:00 Blood Pressure 90/57 05/05/23 16:00 Pulse Oximetry 93 05/05/23 16:00 Oxygen Delivery Me thod Room Air 05/05/23 16:00 Oxygen Flow Rate 3 05/05/23 13:30 Fraction of Inspir ed Oxygen 40 04/30/23 19:25 MDM - SOB/Dyspnea Medical Decision Making Patient presents to the ER after being found in respiratory distress hypoxic with a decreased LOC. Patient was placed on 4 L of oxygen per nasal cannula, patient does have a history of COPD, lab work was obtained which revealed a white count of 14.5, BUN/creatinine of 33 and 1.2, AST 351, ALT of 167, urinalysis was positive for 1+ ketones 2+ protein 3+ blood positive for nitrates trace leukocyte Estrace 5-10 white blood cells, ABGs revealed a pH of 7.3 PCO2 32.7 PO2 of 60.6 and bicarb of 17.1. Chest x-ray revealed airspace disease in the medial aspect of the right upper lobe bilateral lung bases suspicious for pneumonia versus asymmetric pulmonary edema. Ultrasound of the liver was obtained which showed no acute findings. Is anticipated this person will be admitted for pneumonia, acute hypoxic respiratory failure, and pulmonary edema. Patient care handoff received from Dr. Poole pending completion of ED evaluation. Laboratory studies and imaging reviewed. Patient requires inpatient management. The results of ED evaluation were discussed with the patient including plan for admission due to requirement for level of care not available if discharged to prevent significant worsening/deterioration. Patient agreeable with plan. Discussed with hospitalist service who was agreeable to admit patient. Celso Jacques MD Emergency Medicine Lab Data 05/04/23 03:16 05/04/23 03:16 Labs/Radiology: Radiology Impressions Liver Ultrasound 05/01/23 00:52 IMPRESSION: No acute findings. ADDENDUM: 05/01/23 0553 The common bile duct is within normal limit. No intrahepatic biliary ductal dilation. The right kidney is unremarkable. Lumbar Spine MRI 05/03/23 10:53 IMPRESSION: Overall no significant changes since September 22, 2021 1. Mild lumbar curve. No acute compression. 2. Mild central canal stenosis L4-L5 with small central disc protrusion with impingement on traversing RIGHT L5 nerve root in the subarticular recess. Mild RIGHT L4-L5 foraminal narrowing. 3. Mild annular bulging L3-L4 with slight narrowing of the subarticular recess. 4. Small amount of edema in the L3-L4, LEFT L4-L5 and LEFT L5-S1 facets likely degenerative. 5. Lobulated infrarenal abdominal aortic aneurysm appears slightly progressed compared to the CTa in 2019 previously measuring 3.1 x 3.1 cm. Today largest component measures 3.4 x 3.5 cm Chest X-Ray 05/03/23 10:55 IMPRESSION: 1. Improved bibasal infiltrates since the last exam. There is still significant infiltrate in the medial aspect of the right lung. Laboratory Results WBC 14.5 10^3/uL (4.0-10.0) H 04/30/23 16:20 RBC 4.25 10^6/uL (4.1-5.3) 04/30/23 16:20 Hgb 11.9 g/dL (11.5-15.3) 04/30/23 16:20 Hct 38.6 % (37.0-47.0) 04/30/23 16:20 MCV 90.8 fl (81-99) 04/30/23 16:20 MCH 28.0 pg (28.0-34.0) 04/30/23 16:20 MCHC 30.8 g/dL (30.0-36.0) 04/30/23 16:20 RDW 14.1 % (12.1-15.1) 04/30/23 16:20 Plt Count 392 10^3/cmm (130-400) 04/30/23 16:20 MPV 10.3 fL (7.4-10.4) 04/30/23 16:20 Neut % (Auto) 85.6 % 04/30/23 16:20 Lymph % (Auto) 6.0 % 04/30/23 16:20 Lamb % (Auto) 5.0 % 04/30/23 16:20 Eos % (Auto) 1.1 % 04/30/23 16:20 Baso % (Auto) 0.6 % 04/30/23 16:20 Neut # (Auto) 12.45 10^3/uL (1.8-7.7) H 04/30/23 16:20 Lymph # (Auto) 0.9 10^3/uL (0.8-4.8) 04/30/23 16:20 Lamb # (Auto) 0.7 10^3/uL (0.2-0.9) 04/30/23 16:20 Eos # (Auto) 0.2 10^3/uL (0.0-0.8) 04/30/23 16:20 Baso # (Auto) 0.1 10^3/uL (0.0-0.1) 04/30/23 16:20 Nucleated RBC % (auto) 0 % 04/30/23 16:20 Nucleated RBCs # 0.0 /100WBC 04/30/23 16:20 PT 14.60 SECONDS (12.1-14.9) 04/30/23 16:20 INR 1.10 (0.8-1.2) 04/30/23 16:20 Specimen Type Arterial 04/30/23 16:20 Sample Site Radial, left 04/30/23 16:20 ABG pH 7.33 (7.35-7.45) L 04/30/23 16:20 ABG pCO2 32.7 mmHg (35-45) L 04/30/23 16:20 ABG pO2 60.6 mmHg (80.0-100.0) L 04/30/23 16:20 ABG HCO3 17.1 mmol/L (22-26) L 04/30/23 16:20 ABG Base Excess -8.0 mmol/L (-2.0-2.0) L 04/30/23 16:20 Elmer Test Pos 04/30/23 16:20 Hematocrit 36.1 % (37-47) L 04/30/23 16:20 Hgb O2 Saturation 88.8 % (95-100) L 04/30/23 16:20 Carboxyhemoglobin 1.5 %THgb (0.4-20.1) 04/30/23 16:20 Methemoglobin 0.6 % (0.4-1.5) 04/30/23 16:20 Total Hemoglobin 11.8 g/dL (12-16) L 04/30/23 16:20 O2 Delivery Device Nc 04/30/23 16:20 O2 Liters/Min 4.0 % 04/30/23 16:20 FiO2 36.0 % 04/30/23 16:20 Rap Artist ID [email or web address] 04/30/23 16:20 Sodium 135 mmol/L (136-145) L 04/30/23 16:20 Potassium 4.2 mmol/L (3.5-5.1) 04/30/23 16:20 Chloride 100 mmol/L (98-107) 04/30/23 16:20 Carbon Dioxide 16 mmol/L (22-29) L 04/30/23 16:20 Anion Gap 23.2 (5-19) H 04/30/23 16:20 BUN 36 mg/dL (8-23) H 04/30/23 16:20 Creatinine 1.7 mg/dL (0.5-0.9) H 04/30/23 16:20 GFR Calculation 29.8 mL/min (90-130) L 04/30/23 16:20 Glucose 72 mg/dL (65-115) 04/30/23 16:20 Calculated Osmolality 287 mOsm/kg (285-295) 04/30/23 16:20 Lactic Acid 3.9 mmol/L (0.5-2.2) H 04/30/23 16:20 Lactic Acid (Sepsis) 2.2 mmol/L (0.5-2.2) 04/30/23 19:55 Calcium 9.3 mg/dL (8.5-10.5) 04/30/23 16:20 Magnesium 2.3 mg/dL (1.7-2.3) 04/30/23 16:20 Total Bilirubin 0.6 mg/dL (0.15-1.2) 04/30/23 16:20 AST 116 U/L (0-32) H 04/30/23 16:20 ALT 104 U/L (0-33) H 04/30/23 16:20 Alkaline Phosphatase 120 U/L (35-105) H 04/30/23 16:20 Troponin T Baseline 32 ng/L (0-10) H 04/30/23 16:20 Troponin T 120 Minute 29.68 ng/L (0-10) H 04/30/23 18:15 Delta Troponin T -2.32 ABS# (0-10) L 04/30/23 18:15 NT-Pro-B Natriuret Pep 8736 pg/mL (0-125) H 04/30/23 16:20 Total Protein 7.8 g/dL (6.6-8.7) 04/30/23 16:20 Albumin 3.8 g/dL (3.5-5.2) 04/30/23 16:20 Globulin 4.0 g/dL (1.3-4.6) 04/30/23 16:20 Procalcitonin 96.44 ng/mL (0-0.5) H 04/30/23 16:20 Urine Color Dark yellow (Yellow) 04/30/23 18:46 Urine Appearance Hazy (CLEAR) A 04/30/23 18:46 Urine pH 5 (5-7) 04/30/23 18:46 Ur Specific [place] 1.015 (1.005-1.030) 04/30/23 18:46 Urine Protein 2+ (Negative) H 04/30/23 18:46 Urine Glucose (UA) Norm (Normal) 04/30/23 18:46 Urine Ketones 1+ (Negative) H 04/30/23 18:46 Urine Blood 3+ (Negative) H 04/30/23 18:46 Urine Nitrate Positive (Negative) H 04/30/23 18:46 Urine Bilirubin 1+ (Negative) H 04/30/23 18:46 Urine Urobilinogen 1 mg/dL (Negative) H 04/30/23 18:46 Ur Leukocyte Esterase Trace (Negative) H 04/30/23 18:46 Urine RBC 0-4 /hpf (0-2) H 04/30/23 18:46 Urine WBC 5-10 /hpf (0-5) H 04/30/23 18:46 Ur Squamous Epith Cells 0-4 /hpf (0-5) H 04/30/23 18:46 Amorphous Sediment 1+ /hpf 04/30/23 18:46 Urine Bacteria 1+ /hpf (NONE) H 04/30/23 18:46 Hyaline Casts 5-10 /lpf H 04/30/23 18:46 Coarse Granular Casts 5-10 /lpf H 04/30/23 18:46 Urine Mucus Trace /hpf 04/30/23 18:46 Nasal Influ A H1 2009 PCR Not detected (NOT DETECT) 04/30/23 18:08 Adenovirus (PCR) Not detected (NOT DETECT) 04/30/23 18:08 C. pneumoniae DNA (PCR) Not detected (NOT DETECT) 04/30/23 18:08 Coronavirus 229E (PCR) Not detected (NOT DETECT) 04/30/23 18:08 Human Metapneumovir PCR Not detected (NOT DETECT) 04/30/23 18:08 Influenza A (H1) PCR Not detected (NOT DETECT) 04/30/23 18:08 Influenza A (H3) PCR Not detected (NOT DETECT) 04/30/23 18:08 Influenza Type A (PCR) Not detected (NOT DETECT) 04/30/23 18:08 Influenza Type B (PCR) Not detected (NOT DETECT) 04/30/23 18:08 M. pneumoniae (PCR) Not detected (NOT DETECT) 04/30/23 18:08 Parainfluenza 1 (PCR) Not detected (NOT DETECT) 04/30/23 18:08 Parainfluenza 2 (PCR) Not detected (NOT DETECT) 04/30/23 18:08 Parainfluenza 3 (PCR) Not detected (NOT DETECT) 04/30/23 18:08 Parainfluenza 4 (PCR) Not detected (NOT DETECT) 04/30/23 18:08 RSV Type A (PCR) Not detected (NOT DETECT) 04/30/23 18:08 RSV Type B (PCR) Not detected (NOT DETECT) 04/30/23 18:08 Entero/Rhino (PCR) Not detected (NOT DETECT) 04/30/23 18:08 SARS-CoV-2 (PCR) Not detected (NOT DETECT) 04/30/23 18:08 Discharge Plan Discharge Patient Disposition: Admitted As Inpatient Admit Provider: Theresa Mccollum Clinical Impression: Pneumonia, Congestive heart failure, Acute hypoxemic respiratory failure, GEOVANNY ( acute kidney injury) Condition: Stable Discharge Diet: Advance as tolerated, Usual diet and Cardiac Discharge Activity: Resume usual activity and Increase activity as tolerated Coding Level of Care Code ED Safety And Occupational Health Manager for Lillian Yang
[2023-04-30 17:16] LABS: Lactic Sepsis W/Reflex 3.9 mmol/L (0.5-2.2)
[2023-04-30 17:21] LABS: Troponin(5th) Baseline 32 ng/L (0-10)
[2023-04-30 17:28] LABS: NT Pro B Type Natriuretic Pept 8736 pg/mL (0-125); Procalcitonin 96.44 ng/mL (0-0.5)
[2023-04-30 17:34] LABS: Slide Review Slide Review Perform
[2023-04-30 17:52] LABS: Alanine Aminotransferase 104 U/L (0-33); Albumin Level 3.8 g/dL (3.5-5.2); Alkaline Phosphatase 120 U/L (35-105); Anion Gap 23.2 (5-19); Aspartate Amino Transferase 116 U/L (0-32); Blood Urea Nitrogen 36 mg/dL (8-23); Calcium 9.3 mg/dL (8.5-10.5); Carbon Dioxide 16 mmol/L (22-29); Chloride 100 mmol/L (98-107); Glomerular Filtration Rate 29.8 mL/min (90-130); Glucose 72 mg/dL (65-115); Magnesium 2.3 mg/dL (1.7-2.3); Osmolality Calculated 287 mOsm/kg (285-295); Potassium 4.2 mmol/L (3.5-5.1); Sodium 135 mmol/L (136-145); Total Bilirubin 0.6 mg/dL (0.15-1.2); Total Protein 7.8 g/dL (6.6-8.7)
[2023-04-30] MEDS: sodium chloride 0.9% 1,000 ML 999 ML IV (18:09)
[2023-04-30] MEDS: piperacillin-tazobactam 3.375 GM in sodium chloride 0.9% (plus) 50 ML IV (18:10)
--- NOTE | 2023-04-30 18:26 | ECG_ITS ---
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 Measurements Intervals [place] Rate: 88 P: 68 MI: 191 QRS: 47 QRSD: 98 T: 72 QT: 393 QTc: 476 Interpretive Statements SINUS RHYTHM Compared to ECG 04/30/2023 16:35:32 No significant change Electronically Signed On 04-30-2023 18:59:54 CDT by Tram Goldberg M.D. [id number]
[2023-04-30 18:27] LABS: Reflex Lactate Order REFLEX LACTIC ORDERD
[2023-04-30 18:55] LABS: Troponin 5 2HR 29.68 ng/L (0-10)
[2023-04-30] MEDS: vancomycin 1,500 MG/300 ML PIGGYBACK 200 MG IV (19:03)
--- NOTE | 2023-04-30 19:05 | PC.NURSE ---
REPORT GIVEN TO LA Grayson RN ASSUMED CARE.
[2023-04-30 19:07] VITALS: BP 132/79; PULSE 86; RESP 26; O2SAT 92
[2023-04-30 19:07] LABS: Troponin 5 2HR Delta -2.32 ABS# (0-10)
--- NOTE | 2023-04-30 19:19 | PC.NURSE ---
Received report and taken over care from Geoff RN @ [phone]
[2023-04-30 19:25] VITALS: PULSE 83; RESP 18; O2SAT 93
[2023-04-30 19:44] LABS: Bilirubin Urine 1+ (Negative); Blood Urine 3+ (Negative); Glucose Urine UA Norm (Normal); Ketones Urine 1+ (Negative); Leukocyte Esterase Urine Trace (Negative); Nitrate Urine Positive (Negative); Protein Urine 2+ (Negative); Specific Gravity, Urine 1.015 (1.005-1.030); Urine Appearance Hazy (CLEAR); Urine Color Dark Yellow (Yellow); Urobilinogen Urine 1 mg/dL (Negative); pH Urine 5 (5-7)
[2023-04-30 19:46] LABS: Add Urine Microscopic? YES; RBC Urine 0-4 /hpf (0-2); Squamous Epithelial Cell Urine 0-4 /hpf (0-5)
[2023-04-30 19:47] LABS: Add Urine Culture? Yes; Amorphous Sediment Urine 1+ /hpf; Bacteria Urine 1+ /hpf; Mucus Urine TRACE /hpf
[2023-04-30 20:04] VITALS: BP 139/72; PULSE 84; O2SAT 93
[2023-04-30 20:33] LABS: Lactic Acid level (Lactate) 2.2 mmol/L (0.5-2.2)
[2023-04-30 20:57] VITALS: BP 128/66; PULSE 86; RESP 26; O2SAT 91
[2023-04-30 21:17] LABS: Adenovirus Not Detected (NOT DETECT); Chlamydia Pneumoniae Not Detected (NOT DETECT); Coronavirus 229E,HKU1,NL63,OC4 Not Detected (NOT DETECT); Human Metapneumovirus Not Detected (NOT DETECT); Human Rhinovirus/Enterovirus Not Detected (NOT DETECT); Influenza A Not Detected (NOT DETECT); Influenza A H1 Not Detected (NOT DETECT); Influenza A H1-2009 Not Detected (NOT DETECT); Influenza A H3 Not Detected (NOT DETECT); Influenza B Not Detected (NOT DETECT); Mycoplasma Pneumoniae Not Detected (NOT DETECT); Parainfluenza Virus Type 1 Not Detected (NOT DETECT); Parainfluenza Virus Type 2 Not Detected (NOT DETECT); Parainfluenza Virus Type 3 Not Detected (NOT DETECT); Parainfluenza Virus Type 4 Not Detected (NOT DETECT); Respiratory Syncytial Virus A Not Detected (NOT DETECT); Respiratory Syncytial Virus B Not Detected (NOT DETECT); SARS-COV-2 Not Detected (NOT DETECT)
[2023-04-30 23:37] LABS: Troponin 5 6HR 18.95 ng/L (0-10); Troponin 5 6HR Delta -13.05 ng/L (0-12)
[2023-05-01] VITALS (12 sets, daily range): BP systolic 99–155; BP diastolic 59–83; PULSE 72–96; RESP 17–22; TEMP 36.4–36.6; O2SAT 92–97; BMI 28.5
--- NOTE | 2023-05-01 00:45 | PM.HP ---
Providers/Chief Complaint Admitting Physician: Theresa Mccollum MD Primary Care Provider: Venancio Mota MD Chief Complaint: RESP. DISTRESS History of Present Illness Rebecca Coombs is a 68 year old female with PMH of CAD s/p CABG, COPD, Hypercholesterolemia, Smoker, Anemia, known to have B/L pulmonary infiltrates of unclear significance being evaluted as outpatient, chronic aspiration. She presents to the emergency room today due to complaints of worsening shortness of breath over the first past 4 to 5 days, increased cough with expectoration, hypoxia, with O2 sat noted to be 80% when EMS picked her up. She needed 4 L/min supplemental oxygen. She reports subjective fever and chills over the same timeframe. She has been taking her nebulizers more frequently however this does not seem to be improving her symptoms. CXR shows B/L Airspace disease demonstrated in the medial aspect of the right upper lobe and at the bilateral lung bases, suspicious for pneumonia which appears to be new compared to 04/01. Review of Systems General: Reports: 10 or more systems reviewed and unremarkable except in HPI and below Const: Denies: fever(s), chills or body aches Eyes: Denies: change in vision, blurry vision or photophobia ENMT: Reports: hoarseness; Denies: throat pain, enlarged tonsils, odynophagia or nasal congestion Card: Denies: chest pain, palpitations, irregular heart rhythm, edema, swelling of feet/ankles, lightheadedness, pre-syncope, dyspnea on exertion or orthopnea Resp: Denies: dyspnea, productive cough, non-productive cough, wheezing, stridor, pain on inspiration, change in phlegm color, hemoptysis or chest congestion GI: Denies: abdominal pain, nausea, vomiting, hematemesis, coffee ground emesis, dysphagia, heartburn, diarrhea, constipation, GI cramping, change in stool character, hematochezia or melena : Denies: flank pain, difficulty voiding, dysuria, urinary frequency, urinary urgency, urinary hesitancy or hematuria Musc: Denies: neck pain, back pain, extremity pain, joint swelling, joint warmth or deformity Neuro: Denies: headache(s), numbness in extremities, weakness in extremities, sensory changes, difficulty walking, frequent falls, dizziness, vertigo, behavioral changes, Slurred speech present or seizure-like activity Psych: Denies: anxiety, depression, suicidal ideation or homicidal ideation Endo: Denies: polyuria, polydipsia, tired all the time, cold intolerance or hot flashes Jovany/Lymph: Denies: easy bruising or easy bleeding Medications/Allergies Home Medications Medication Instructions Recorded Confirmed Last Taken Type ascorbate calcium (vitamin C) 500 1,000 mg PO QAM 12/08/19 04/03/23 01/16/23 History mg tablet magnesium 250 mg tablet 250 mg PO QAM 12/08/19 04/03/23 01/15/23 History multivitamin (Daily Multi-Vitamin 1 tab PO QAM 12/08/19 04/03/23 01/16/23 History tablet) aspirin 81 mg tablet,delayed 81 mg PO QAM 08/30/20 04/03/23 01/16/23 History release (Adult Aspirin Regimen) cholecalciferol (vitamin D3) 50 2,000 unit PO QAM 06/01/21 04/03/23 01/16/23 History mcg (2,000 unit) tablet ipratropium 0.5 mg-albuterol 3 mg 3 ml inhalation TID PRN Shortness 11/30/21 04/03/23 Unknown History (2.5 mg base)/3 mL nebulization Of Breath soln ipratropium bromide 17 2 puff inhalation Q6H PRN 11/30/21 04/03/23 Unknown History mcg/actuation HFA aerosol inhaler Shortness Of Breath (Atrovent HFA) omega-3 fatty acids 1,000 mg PO DAILY@17 11/30/21 04/03/23 01/15/23 History lidocaine 5 % topical ointment See Rx Instructions .Route .COMPLEX 01/09/22 04/03/23 Unknown History melatonin 10 mg tablet 10 mg PO BEDTIME PRN Sleep 01/09/22 04/03/23 11/11/22 22:00 History nitroglycerin 0.4 mg sublingual 0.4 mg sublingual Q5M PRN chest 01/16/22 04/03/23 Unknown Rx tablet pain #60 tabs docusate sodium 100 mg capsule 200 mg PO BEDTIME 05/08/22 04/03/23 01/15/23 History (Colace) clopidogrel 75 mg tablet (Plavix) 75 mg PO QAM #90 tabs 07/05/22 04/03/23 01/16/23 Rx montelukast 10 mg tablet 10 mg PO QAM #90 tabs 07/05/22 04/03/23 01/16/23 Rx omeprazole 20 mg capsule,delayed 20 mg PO BID #180 caps 11/06/22 04/03/23 01/16/23 Rx release potassium chloride 20 mEq 20 meq PO QAM #90 tabs 11/06/22 04/03/23 01/16/23 Rx tablet,extended release(part/cryst) baclofen 10 mg tablet 10 mg PO TID #90 tabs 01/01/23 04/03/23 01/16/23 Rx fluticasone 100 mcg-salmeterol 50 1 inh inhalation BID #60 ea 01/01/23 04/03/23 Unknown Rx mcg/dose blistr powdr for inhalation (Wixela Inhub) alprazolam 1 mg tablet (Xanax) 1 mg PO TID 90 days #270 tabs 01/08/23 04/03/23 01/16/23 Rx tranylcypromine 10 mg tablet 30 mg PO BID@10,17 #180 tabs 01/09/23 04/03/23 01/16/23 Rx (Parnate) isosorbide mononitrate 30 mg 30 mg PO DAILY #90 tabs 02/06/23 04/03/23 Unknown Rx tablet,extended release 24 hr levalbuterol tartrate 45 2 inh inhalation Q6H #15 grams 02/21/23 04/03/23 Unknown Rx mcg/actuation aerosol inhaler (Xopenex HFA) carvedilol 3.125 mg tablet See Rx Instructions .Route 03/01/23 04/03/23 Unknown Rx .COMPLEX #180 tabs levofloxacin 500 mg tablet 500 mg PO DAILY #5 tabs 03/08/23 04/03/23 Unknown Rx ranolazine 1,000 mg 1,000 mg PO BID #180 tabs 03/11/23 04/03/23 Unknown Rx tablet,extended release,12 hr (Ranexa) lovastatin 20 mg tablet 20 mg PO BEDTIME #90 tabs 03/12/23 04/03/23 Unknown Rx topiramate 50 mg tablet 50 mg PO BID pain 90 days #180 03/14/23 04/03/23 Unknown Rx tabs furosemide 40 mg tablet See Rx Instructions .Route 03/19/23 04/03/23 Unknown Rx .COMPLEX #90 tabs fluticasone propionate 50 See Rx Instructions .Route 04/30/23 Unknown Rx mcg/actuation nasal .COMPLEX 3 months #16 grams spray,suspension Allergies Allergy/AdvReac Type Severity Reaction Status Date / Time pregabalin [From Lyrica] Allergy Severe dizziness Verified 04/03/23 14:46 codeine AdvReac Unknown Unknown Verified 04/03/23 14:46 gabapentin [From Neurontin] AdvReac Unknown dizziness Verified 04/03/23 14:46 oxycodone [From OxyContin] AdvReac Unknown Unknown Verified 04/03/23 14:46 Uwmgtum-GMH-GdJ Reductase AdvReac Unknown muscle Verified 04/03/23 14:46 Inhibitor aches [Tmuifps-Txx-Bhe Reductase Inhibitor] tramadol AdvReac Unknown rash Verified 04/03/23 14:46 PFSH Acute PFSH: Medical History Bladder prolapse COPD (chronic obstructive pulmonary disease) Coronary artery disease Cystocele with prolapse HTN (hypertension) Hypercholesterolemia Incomplete prolapse of vaginal vault Ischemic bowel disease Major depressive disorder, recurrent, in full remission Myocardial infarction Osteoarthritis of shoulders, bilateral Palpitations Panic disorder 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 History of right shoulder replacement Hx of appendectomy S/p bilateral carpal tunnel release S/P CABG x 4 S/P right hemicolectomy 01/01/2020 Status post colonoscopy Status post laparoscopic cholecystectomy 01/01/2020 Status post reverse total arthroplasty of right shoulder Family History Daughter Diabetes Sister Diabetes x3 Brother Diabetes Son Hypertension Family/Other Thyroid condition granddaughter Mother Heart disease Denies family history of Colon cancer Ovarian cancer Clotting disorder Hyperlipidemia Breast cancer Anesthesia complication Bleeding disorder Uterine cancer Stroke Social History Smoking and tobacco status: former smoker (quit smoking 12/2021 ) Quit status (tobacco): has quit using tobacco Year quit tobacco: 12/2021 Former quit date comment: 2 ppd X 30 years Second hand smoke exposure: No Smoking risk assessment/counseling performed?: No Alcohol intake: never Desire information about alcohol rehabilitation?: No Counseling given: No Substance/Drug Use: never Desire information about substance/drug rehabilitation?: No Counseling given: No Current occupational status: retired Vitals/I&O/Wt Last Vital Signs Temp 98.2 F 04/30/23 16:23 Pulse 86 04/30/23 20:57 Resp 26 H 04/30/23 20:57 BP 128/66 04/30/23 20:57 Pulse Ox 91 04/30/23 20:57 O2 Del Method Nasal Cannula 05/01/23 00:39 O2 Flow Rate 5 04/30/23 19:07 FiO2 40 04/30/23 19:25 04/30/23 04/30/23 05/01/23 14:59 22:59 06:59 Intake Total 1350 / 1350 Balance 1350 / 1350 Weight last 48 hrs Weight 85.275 kg Weight 85.275 kg Physical Exam Narrative: General: No acute distress, AO x3 HEENT: PERRLA, pupils bilaterally equal and reactive, pallors not present Chest: scattered B/L wheezing to auscultation CVS: S1-S2 regular, no murmurs, no tachycardia, no gallops, no rubs Abdomen: Soft, nontender, no organomegaly, bowel sounds present Neuro: No focal deficits, no facial deformity, AO x3, power 5/5 in all limbs Extremities: no edema, clubbing Data 04/30/23 16:20 05/01/23 05:41 Micro: Microbiology 04/30/23 18:15 Blood Culture - Preliminary Blood SPECIMEN COLLECTED 04/30/23 18:10 Blood Culture - Preliminary Blood SPECIMEN COLLECTED A&P Assessment and plan (1) Pneumonia: (2) Acute hypoxemic respiratory failure: (3) At risk for aspiration pneumonia: Plan Patient presenting to the hospital today with chief complaints of worsening dyspnea and hypoxia over the past 4 to 5 days. Chest x-ray shows bilateral infiltrates. Patient has been undergoing outpatient evaluation for bilateral infiltrates with pulmonology, etiology is not known however chronic aspiration has been suspected. Her infiltrates currently do appear to be worse compared to previously She has leukocytosis of 14.5, elevated inflammatory markers, which raise concern for pneumonia Started on antibiotic coverage with piperacillin/tazobactam and vancomycin Check MRSA nares, urine Legionella and bacterial antigens. Recent barium swallow from April 01, 2023 showed significant reflux when patient is supine with a full stomach. She was also evaluated for speech therapy on April 16 as outpatient. While no gross aspiration was seen during her barium swallow study, it was noted that there is potential for aspiration due to her reflux diagnosis. She was recommended to sleep in an elevated position with extra pillows, she did not think she could elevate the head of the bed as the bed frame was large and heavy. She was trained and instructed in the use of alternation technique with foods and liquids throughout the day. Aspiration pneumonia certainly remains a possibility duonebs and budesonide inhalation Troponin series currently unremarkable, no significant changes noted on EKG today to suggest ACS. Last known EF with ejection fraction of 45 to 50% from September 2022 with mild global hypokinesis. Moderate pulmonary hypertension was noted. She recently had a stress test in January which showed an EF of 62%. Perfusion defects were noted in the anterolateral inferolateral regions with reversibility, overall impression that of myocardial scarring. There was no significant change compared to stress test from January 2022. Attestations Medical Necessity Statement*: > 2 midnight admission anticipated for pneumonia, iv abx, hypoxia Coding Level of Care Code Acute Code for [facility] Diagnoses Pneumonia J18.9 Acute hypoxemic respiratory failure J96.01 At risk for aspiration pneumonia Z91.89
--- NOTE | 2023-05-01 00:52 | USR_ITS ---
PROCEDURE INFORMATION: Exam: US Abdomen; Limited Exam date and time: 05/01/2023 1:50 AM Age: 68 years old Clinical indication: Other: Transaminitis; Prior surgery; Surgery date: 6+ months; Surgery type: [facility] 2019 TECHNIQUE: Imaging protocol: Real time ultrasound of the abdomen with image documentation. Limited exam focused on the region of clinical interest. COMPARISON: [place] [id number] 01/07/2020 11:49 PM FINDINGS: Gallbladder: Status post cholecystectomy. Pancreas: There is limited visualization of the pancreas due to overlying bowel gas. Otherwise no definite abnormality. Liver: Unremarkable. Aorta: There is ectasia of the abdominal aorta. US/US liver [id number] IMPRESSION: No acute findings.
[2023-05-01] MEDS: enoxaparin 40 mg/0.4 mL Syringe SUBCUT (01:16)
[2023-05-01 05:53] LABS: Hematocrit 37.8 % (37.0-47.0); Hemoglobin 11.3 g/dL (11.5-15.3); Mean Corpuscular HGB Conc 29.9 g/dL (30.0-36.0); Mean Corpuscular Hemoglobin 28.3 pg (28.0-34.0); Mean Corpuscular Volume 94.7 fl (81-99); Mean Platelet Volume 10.1 fL (7.4-10.4); Platelet Count 313 10^3/cmm (130-400); Red Blood Count 3.99 10^6/uL (4.1-5.3); Red Cell Distribution Width 14.4 % (12.1-15.1); White Blood Count 11.6 10^3/uL (4.0-10.0)
[2023-05-01 06:04] LABS: Alanine Aminotransferase 167 U/L (0-33); Albumin Level 2.7 g/dL (3.5-5.2); Alkaline Phosphatase 101 U/L (35-105); Aspartate Amino Transferase 351 U/L (0-32); Blood Urea Nitrogen 33 mg/dL (8-23); Calcium 9.1 mg/dL (8.5-10.5); Carbon Dioxide 15 mmol/L (22-29); Chloride 105 mmol/L (98-107); Globulin 4.5 g/dL (1.3-4.6); Glomerular Filtration Rate 44.5 mL/min (90-130); Glucose 108 mg/dL (65-115); Osmolality Calculated 288 mOsm/kg (285-295); Sodium 135 mmol/L (136-145); Total Bilirubin 0.4 mg/dL (0.15-1.2); Total Protein 7.2 g/dL (6.6-8.7)
[2023-05-01] MEDS: aspirin 81 mg EC Tablet PO (06:04)
[2023-05-01] MEDS: clopidogrel 75 mg Tablet PO (06:04)
[2023-05-01 06:05] LABS: Anion Gap 19.2 (5-19); Potassium 4.2 mmol/L (3.5-5.1)
[2023-05-01 06:26] LABS: Hepatitis A Antibody IgM Non-Reactive (Nonreactive); Hepatitis B Core AB, Total Non-Reactive (Nonreactive); Hepatitis B Surface AB 3.5 (11.5-1000); Hepatitis B Surface Antigen Non-Reactive (Nonreactive); Hepatitis C Virus Antibody Non-Reactive (Nonreactive)
--- NOTE | 2023-05-01 07:10 | PC.PHAR ---
Vanc trough to be drawn before 3rd dose, assuming renal function stable; 6-1@1700 Patient: Floor: Age: 68 yo Serum creatinine: 1.2 mg/dL Height: 67.7 Inches Weight (kg): 85 IBW (kg): 63.21 Dosing wt(kg): 85 Estimated Creatinine clearance (ml/min): 44.2 CRCL method: Cockcroft and Gault using ibw(default). Drug selected: Vancomycin Loading dose (mg): Vd (liters): 59.5 (factor used: 0.7 L/kg) Sherman (hr-1): 0.041 Half life (hrs): 16.91 CLvanco=?? 2.440 L/hr Recommended dose: 1500 mg Interval: 24 hrs Infusion time (hrs): 1 Predicted peak (mcg/mL): 39.4 Predicted trough (mcg/mL): 15.34 Total body weight is being used for vancomycin dosing. Recommendations: Give Vancomycin 1500 mg q 24 hrs with an expected Cpeak of 39.4 mcg/ml and an expected Ctrough of 15.34 mcg/ml AUC 0-24 /JOCELYNE Data: JOCELYNE 0.5 mcg/mL:?? AUC/JOCELYNE:? 1229.5 JOCELYNE 1.0 mcg/mL:?? AUC/JOCELYNE:? 614.8 --------- JOCELYNE 1.5 mcg/mL:?? AUC/JOCELYNE:? 409.8 JOCELYNE 2.0 mcg/mL:?? AUC/JOCELYNE:? 307.4 Renal dosing of other antibiotics (review renal dosing of other medications and list guidelines here): Thank you for the consult, will continue to follow. Signature: Kathie ManceraD
[2023-05-01 07:32] LABS: Absolute Segmented Neutrophil 10.1 10/cmm (1.6-7.1); Band Neutrophils Absolute 0.9 10^3/cmm (0.0-1.2); Eosinophils 0 %; Lymphocytes 2 %; Lymphocytes Absolute 0.3 10^3/cmm (1.2-3.4); Monocytes Absolute 0.2 10^3/cmm (0.1-0.6); Platelet Estimate Normal (Normal); Segmented Neutrophils 87 %; Total Cells Counted 100 (0-100)
[2023-05-01] MEDS: ipratropium-albuterol 3 mL Neb INHALATION ×3 (08:10→20:55)
[2023-05-01] MEDS: budesonide 0.5 mg/2 mL Neb INHALATION ×2 (08:11→20:55)
[2023-05-01] MEDS: carvedilol 3.125 mg Tablet PO ×2 (09:39→18:09)
[2023-05-01] MEDS: pantoprazole DR 40 mg Tablet PO ×2 (09:40→09:44)
[2023-05-01] MEDS: topiramate 25 mg Tablet 50 MG PO ×2 (09:40→18:09)
[2023-05-01] MEDS: isosorbide mononitrate ER 30 mg Tablet PO (09:40)
[2023-05-01] MEDS: piperacillin-tazobactam 3.375 GM in sodium chloride 0.9% (plus) 50 ML IV ×3 (09:40→23:39)
[2023-05-01] MEDS: ranolazine (12HR) 500 mg Tablet 1000 MG PO ×2 (09:40→18:09)
[2023-05-01] MEDS: baclofen 10 mg Tablet PO ×3 (09:40→21:16)
[2023-05-01 10:11] LABS: ABG PCO2 38.6 mmHg (35-45); ABG PH Result 7.33 (7.35-7.45); Arterial Blood Gas Hematocrit 30.9 % (37-47); Base Excess ABG -5.4 mmol/L (-2.0-2.0); Blood Gas Allen Test Pos; Blood Gas Sample Site Brachial, left; Blood Gas Sample Type Arterial; HCO3 ABG 20.1 mmol/L (22-26); Oxygen Device NC; PO2 ABG 70.9 mmHg (80.0-100.0)
--- NOTE | 2023-05-01 11:57 | PM.MISC ---
Miscellaneous Note Note: This morning Ms. Coombs was very drowsy I requested ABG which showed metabolic acidosis Lactic acid has improved Blood pressure stable Patient complained of pain in her legs She refused BiPAP Creatinine improved Potassium 4.2 Abnormal liver enzymes noted Clinical signs of fluid overload Productive cough Currently on 5 L Abdomen soft Lower extremity 2+ edema My plan for today Continue diuresis Diastolic CHF exacerbation Productive cough concern for pneumonia? Afebrile Hyperkalemia improved Abnormal liver enzymes related to CHF hepatic congestion Metabolic acidosis related to lactic acidemia: Lactic acid improving Worsening dyspnea related to CHF exacerbation with concern for pneumonia at this point continue antibiotics EF 62% Recent stress test showed scarring Concern for aspiration pneumonia following up with Dr. Shell outpatient Modified barium swallow study done outpatient as well which showed reflux We will follow-up with nares MRSA and urine antigen studies. Continue vancomycin and Zosyn at this point
--- NOTE | 2023-05-01 12:47 | PC.RESP ---
Patient adamantly declines bipap at this time, pt stated that she watched her son use and fight with a bipap machine and she refuses to do the same thing. no resp dx noted. was notified
[2023-05-01] MEDS: acetylcysteine 200 mg/mL SDV 4 mL 100 MG INHALATION ×2 (14:03→20:55)
[2023-05-01] MEDS: FUROsemide 10 mg/mL SDV 2mL 20 MG IVP (14:30)
[2023-05-01] MEDS: vancomycin 1,500 MG/300 ML PIGGYBACK 200 MG IV (18:12)
[2023-05-01] MEDS: atorvastatin 40 mg Tablet PO (21:16)
[2023-05-01] MEDS: ALPRAZolam 0.5 mg Tablet 1 MG PO (21:19)
[2023-05-02] VITALS (15 sets, daily range): BP systolic 98–114; BP diastolic 53–74; PULSE 72–86; RESP 15–24; TEMP 36.3–37.1; O2SAT 91–96
[2023-05-02] MEDS: enoxaparin 40 mg/0.4 mL Syringe SUBCUT (00:28)
[2023-05-02] MEDS: ipratropium-albuterol 3 mL Neb INHALATION ×4 (03:29→20:48)
[2023-05-02] MEDS: acetylcysteine 200 mg/mL SDV 4 mL 100 MG INHALATION ×4 (03:30→20:49)
[2023-05-02 04:40] LABS: Basophils # 0.1 10^3/uL (0.0-0.1); Basophils % 0.6 %; Eosinophils % 0.1 %; Hematocrit 30.9 % (37.0-47.0); Hemoglobin 9.7 g/dL (11.5-15.3); Lymphocytes # 1.3 10^3/uL (0.8-4.8); Lymphocytes % 8.5 %; Mean Corpuscular HGB Conc 31.4 g/dL (30.0-36.0); Mean Corpuscular Hemoglobin 28.8 pg (28.0-34.0); Mean Corpuscular Volume 91.7 fl (81-99); Mean Platelet Volume 10.6 fL (7.4-10.4); Monocytes % 6.2 %; Neutrophils # 12.88 10^3/uL (1.8-7.7); Neutrophils % 84.4 %; Nucleated Red Blood Cells % 0 %; Platelet Count 306 10^3/cmm (130-400); Red Blood Count 3.37 10^6/uL (4.1-5.3); Red Cell Distribution Width 14.5 % (12.1-15.1); White Blood Count 15.3 10^3/uL (4.0-10.0)
[2023-05-02 05:01] LABS: Alanine Aminotransferase 206 U/L (0-33); Albumin Level 2.7 g/dL (3.5-5.2); Alkaline Phosphatase 87 U/L (35-105); Anion Gap 15.9 (5-19); Aspartate Amino Transferase 382 U/L (0-32); Blood Urea Nitrogen 35 mg/dL (8-23); Calcium 9.1 mg/dL (8.5-10.5); Carbon Dioxide 20 mmol/L (22-29); Chloride 104 mmol/L (98-107); Globulin 3.9 g/dL (1.3-4.6); Glucose 82 mg/dL (65-115); Osmolality Calculated 289 mOsm/kg (285-295); Potassium 3.9 mmol/L (3.5-5.1); Sodium 136 mmol/L (136-145); Total Bilirubin 0.4 mg/dL (0.15-1.2); Total Protein 6.6 g/dL (6.6-8.7)
[2023-05-02 05:05] LABS: Creatinine Clr Calc Pharmacy 60.7272
[2023-05-02] MEDS: aspirin 81 mg EC Tablet PO (05:53)
[2023-05-02] MEDS: clopidogrel 75 mg Tablet PO (05:53)
--- NOTE | 2023-05-02 08:17 | P.PN_ITS ---
Subjective Subjective: I do not see any signs of cauda equina I was notified by the physical therapist that he is concerned about spinal cord syndrome Overnight no events Patient this morning is able to communicate with me She has good dorsiflexion, she is endorsing incontinence to cough reflex only Good sensations along medial side of her thighs Patient is stating that she would like to work with physical therapy today I did give her option to go home later today versus tomorrow morning She does not want to go to any rehab for now She did not do well with physical therapy yesterday Spoke with her daughter yesterday, patient also endorsed overdosing on her medications She uses a hero dispenser Vitals/I&O/Wt Last Vital Signs Temp 98.1 F 05/02/23 08:00 Pulse 84 05/02/23 08:00 Resp 20 H 05/02/23 08:00 BP 98/61 05/02/23 08:00 Pulse Ox 91 05/02/23 08:00 O2 Del Method Nasal Cannula 05/02/23 08:00 O2 Flow Rate 3 05/02/23 03:32 FiO2 40 04/30/23 19:25 05/01/23 05/02/23 05/02/23 22:59 06:59 14:59 Intake Total 1070 / 1195 50 / 1245 Output Total 250 / 250 Balance 1070 / 1195 -200 / 995 Weight last 48 hrs Weight 85.275 kg Weight 85.275 kg Physical Exam Narrative: No signs of cauda equina Good dorsiflexion of her feet bilaterally Good sensations of her medial thigh area Nonfocal neuro exam Awake and alert Fatigued and lethargic Clinically looks dehydrated Abdomen soft Currently on room air saturating well S1, S2 Data 05/02/23 03:29 05/02/23 03:29 Micro: Microbiology 04/30/23 18:15 Blood Culture - Preliminary Blood NEGATIVE TO DATE 04/30/23 18:10 Blood Culture - Preliminary Blood NEGATIVE TO DATE 05/01/23 07:52 Bacterial Antigens - Final Urine,Voided 05/01/23 07:52 Legionella Urinary Antigen - Final Urine,Voided A&P Assessment and plan (1) Pneumonia: (2) Congestive heart failure: (3) Acute hypoxemic respiratory failure: (4) GEOVANNY (acute kidney injury): (5) At risk for aspiration pneumonia: (6) Aspiration pneumonia due to regurgitated gastric secretions: (7) Mixed conductive and sensorineural hearing loss, bilateral: (8) Neuropathic pain: Plan Acute hypoxia: Resolved We were able to wean off oxygen to room air Acute diastolic CHF exacerbation Clinically patient looks dehydrated Hold off on diuretics today Neuropathic pain No sign of cauda equina Good dorsiflexion of bilateral feet No sensory abnormality of her extremities No incontinence, patient is endorsing continence to cough reflex I do believe her pain is related to neuropathy Generalized weakness and fatigue, tendency to overdose on medications Patient did endorse as well We have confiscated her Xanax tablets Full code Continue PT for 1 more day She does not want to go to any rehab She prefers home health services Daughter was updated yesterday Patient is eating breakfast Currently on cardiac diet Hypertension: I will hold her antihypertensive regimen for low blood pressure this morning Attestations Medical Necessity Statement*: Discharge tomorrow Coding Level of Care Code 69624 Moderate MDM includes number and complexity of problems actively addressed during encounter, amount and/or complexity of data reviewed/ordered and described risk of complication, morbidity or mortality of management as documen jez Diagnoses Pneumonia J18.9 Congestive heart failure I50.9 Acute hypoxemic respiratory failure J96.01 GEOVANNY (acute kidney injury) N17.9 At risk for aspiration pneumonia Z91.89 Aspiration pneumonia due to regurgitated gastric secretions J69.0 Mixed conductive and sensorineural hearing loss, bilateral H90.6 Neuropathic pain M79.2
[2023-05-02] MEDS: budesonide 0.5 mg/2 mL Neb INHALATION ×2 (08:59→20:48)
[2023-05-02] MEDS: carvedilol 3.125 mg Tablet PO ×2 (09:36→18:12)
[2023-05-02] MEDS: topiramate 25 mg Tablet 50 MG PO ×2 (09:36→18:12)
[2023-05-02] MEDS: ranolazine (12HR) 500 mg Tablet 1000 MG PO ×2 (09:36→18:12)
[2023-05-02] MEDS: baclofen 10 mg Tablet PO ×3 (09:36→21:15)
[2023-05-02] MEDS: piperacillin-tazobactam 3.375 GM in sodium chloride 0.9% (plus) 50 ML IV ×3 (09:37→23:59)
--- NOTE | 2023-05-02 10:34 | PC.CHAP ---
Pastoral Care Encounter/Spiritual Assessment Type of Contact [] Declined revenue audit clerk visit [] Patient/Family/Request visit [] Outpatient visit [] Follow-up visit [] Physician referral [] Code/Alert [x] Routine visit [] Staff referral [] Actively dying [] Patient sleeping [] Family support [] [] Out of room [] Palliative care [] [v] Receiving care in room [] Pre-surgical visit [] Trauma [] Long length of stay [] ICU visit [] Other: Relational/Emotional Strength [x] Patient feels connected with others/family/visitors/staff [] Distress [] Loneliness/isolation [] Abandonment Spirituality of Patient [x] Person of Radha [] Attends Adventism of their Radha [x] Believes in Prayer [] Reads Bible or Cheondoism materials [] There are Spiritual issues to be addressed 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 Interventions [x] Prayer [x] Active listening [x] Non-anxious presence [x] Spiritual/emotional support [] Crisis/trauma care [x] Spiritual counseling [] Bereavement support [] Provided bereavement packet [] Provided Bible/devotional materials [] Provided toy/stuffed animal, coloring book to patient or family member [] Provided Communion [] Anointing/[place] [] Salvation [x] Completed spiritual assessment [] Other: Impact on Illness or Injury [] Angry [] Fearful [] Anxious [] Often cries [] Exhaustion [] Unable to work [] Unable to attend pentecostalism [] Unable to walk/stand [] Unable to read [] Unable to drive [] Unable to eat/drink [] Unable to sleep [] Unable to be with family [] Patient intubated [] Other: Summary dealing with punmona feels good has a good attitude going home Time spent with patient 10 mins
[2023-05-02 13:14] LABS: Methicillin-Resist S.aureu PCR NOT DETECTED (NOT DETECTED)
[2023-05-02] MEDS: ALPRAZolam 0.5 mg Tablet 1 MG PO (14:02)
[2023-05-02] MEDS: acetaminophen 325 mg Tablet 650 MG PO (17:03)
[2023-05-02 19:11] LABS: Vancomycin Trough 11.7 ug/mL (10-15)
[2023-05-02] MEDS: vancomycin 1,500 MG/300 ML PIGGYBACK 200 MG IV (19:22)
[2023-05-02] MEDS: atorvastatin 40 mg Tablet PO (21:15)
[2023-05-03] VITALS (15 sets, daily range): BP systolic 91–112; BP diastolic 59–68; PULSE 78–99; RESP 15–20; TEMP 36.7–37.5; O2SAT 87–97
[2023-05-03] MEDS: enoxaparin 40 mg/0.4 mL Syringe SUBCUT (00:01)
[2023-05-03] MEDS: ALPRAZolam 0.5 mg Tablet 1 MG PO ×2 (00:56→18:21)
[2023-05-03] MEDS: aspirin 81 mg EC Tablet PO (05:54)
[2023-05-03] MEDS: clopidogrel 75 mg Tablet PO (05:54)
[2023-05-03] MEDS: ipratropium-albuterol 3 mL Neb INHALATION ×3 (09:12→20:11)
[2023-05-03] MEDS: acetylcysteine 200 mg/mL SDV 4 mL 100 MG INHALATION ×3 (09:12→20:11)
[2023-05-03] MEDS: budesonide 0.5 mg/2 mL Neb INHALATION ×2 (09:12→20:11)
[2023-05-03] MEDS: baclofen 10 mg Tablet PO ×3 (09:30→20:04)
[2023-05-03] MEDS: topiramate 25 mg Tablet 50 MG PO ×2 (09:30→18:11)
[2023-05-03] MEDS: carvedilol 3.125 mg Tablet PO ×2 (09:30→18:11)
[2023-05-03] MEDS: pantoprazole DR 40 mg Tablet PO (09:30)
[2023-05-03] MEDS: piperacillin-tazobactam 3.375 GM in sodium chloride 0.9% (plus) 50 ML IV (09:30)
[2023-05-03] MEDS: ranolazine (12HR) 500 mg Tablet 1000 MG PO ×2 (09:30→18:11)
--- NOTE | 2023-05-03 10:51 | PM.PN ---
Subjective Subjective: This morning she is wheezing, productive cough roxana brown sputum I will request x-ray She is asking for her antidepressant I did call Dr. Kiran he verified 30 mg of Parnate twice a day dose He has requested us to put her on special diet which should be low tyramine no she is at all It can cause high blood pressure with special diet I will call her daughter to bring her medications so we could start to avoid withdrawal symptoms Vitals/I&O/Wt Last Vital Signs Temp 98.0 F 05/03/23 08:00 Pulse 92 05/03/23 09:35 Resp 18 05/03/23 09:15 BP 101/66 05/03/23 08:00 Pulse Ox 95 05/03/23 09:15 O2 Del Method Nasal Cannula 05/03/23 09:15 O2 Flow Rate 3 05/03/23 09:15 FiO2 40 04/30/23 19:25 05/02/23 05/03/23 05/03/23 22:59 06:59 14:59 Intake Total 590 / 1000 50 / 1050 123.125 / 123.125 Balance 590 / 1000 50 / 1050 123.125 / 123.125 Physical Exam Narrative: Active wheezing Currently on 3 L Abdomen soft No typical signs of cauda equina Have adequate sensation of lower extremities Good strength No active back pain Complaint numbness and tingling of extremities Anxious appearing Productive cough S1, S2 Abdomen soft Euvolemic Data 05/02/23 03:29 05/02/23 03:29 Micro: Microbiology 05/01/23 16:10 Sputum Culture - Preliminary Sputum - Expectorated Sputum Gram Negative Rods 04/30/23 18:46 Urine Culture - Preliminary Urine,Clean Catch A&P Assessment and plan (1) Neuropathic pain: (2) Pneumonia: (3) Congestive heart failure: (4) Acute hypoxemic respiratory failure: (5) GEOVANNY (acute kidney injury): (6) At risk for aspiration pneumonia: (7) Aspiration pneumonia due to regurgitated gastric secretions: (8) Lung nodules: (9) Mixed conductive and sensorineural hearing loss, bilateral: (10) 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 Kiran who recommended special low tyramine diet I will ask her daughter to bring her home medications Incontinence of urine Sensation intact No typical signs of cauda equina We will request MRI lumbar spine to rule out Patient is not ready to be discharged She will need home oxygen evaluation before discharge continue physical therapy Full code Cardiac long-term and diet Attestations Medical Necessity Statement*: Continue medical management Diagnoses Neuropathic pain M79.2 Pneumonia J18.9 Congestive heart failure I50.9 Acute hypoxemic respiratory failure J96.01 GEOVANNY (acute kidney injury) N17.9 At risk for aspiration pneumonia Z91.89 Aspiration pneumonia due to regurgitated gastric secretions J69.0 Lung nodules R91.8 Mixed conductive and sensorineural hearing loss, bilateral H90.6 Depression resistant to treatment F32.9 Hypokalemia E87.6
--- NOTE | 2023-05-03 10:53 | MR_ITS ---
WS: [id number] MRI LUMBAR SPINE NONCONTRAST TECHNIQUE: Sagittal T1, T2 and STIR imaging. Axial T1 and T2 imaging. CLINICAL INFORMATION: cauda equina concern COMPARISON: MRI 2020 FINDINGS: Mild lumbar curve. No acute compression. Mild disc bulging L4-L5. No high-grade central canal stenosi s. Urinary distention of the bladder. L1-L2: Normal. L2-L3: Mild disc bulging with slight narrowing of the subarticular recess bilaterally. Mild facet art hropathy. Spinal canal and foramen are patent. L3-L4: Mild annular bulging with slight effacement of ventral thecal sac. Moderate facet arthropathy. Spinal canal and foramen are patent. L4-L5: Mild disc bulging with mild central canal stenosis. Impingement on traversing RIGHT L5 nerve r oot in the subarticular recess. Moderate facet arthropathy. Mild RIGHT foraminal narrowing slightly c ontacts the exiting RIGHT L4 nerve root. LEFT foramen is patent. Small LEFT facet effusion. L5-S1: Mild annular bulging. Slight contact of the LEFT S1 nerve root. Moderate facet arthropathy. Sm all LEFT facet effusion. Visualized pelvic bony structures: Normal. Paravertebral soft tissues: Normal. Lobulated infrarenal abdominal aortic aneurysm with the largest component measuring 3.4 x 3.5 cm MR/MR lumbar spine wo con* [id number] IMPRESSION: Overall no significant changes since September 22, 2021 1. Mild lumbar curve. No acute compression. 2. Mild central canal stenosis L4-L5 with small central disc protrusion with i mpingement on traversing RIGHT L5 nerve root in the subarticular recess. Mild R IGHT L4-L5 foraminal narrowing. 3. Mild annular bulging L3-L4 with slight narrowing of the subarticular recess . 4. Small amount of edema in the L3-L4, LEFT L4-L5 and LEFT L5-S1 facets likely degenerative. 5. Lobulated infrarenal abdominal aortic aneurysm appears slightly progressed compared to the CTa in 2019 previously measuring 3.1 x 3.1 cm. Today largest co mponent measures 3.4 x 3.5 cm
--- NOTE | 2023-05-03 10:55 | XR_ITS ---
WS: [id number] Exam: XR chest 1V portable [id number] Date/Time of Exam: 05/03/2023 10:55 AM Reason For Exam: wheezing Comparison 04/30/2023. Bibasal infiltrates show improvement. There is still infiltrate in the medial aspect of the right kelton g. Heart size is within normal limits. Signs of previous CABG surgery. Reverse right shoulder prosthe sis. XR/XR chest 1V portable [id number] IMPRESSION: 1. Improved bibasal infiltrates since the last exam. There is still significant infiltrate in the medial aspect of the right lung.
[2023-05-03] MEDS: potassium chloride ER 20 mEq Tablet 40 MEQ PO (11:16)
[2023-05-03] MEDS: FUROsemide 10 mg/mL SDV 2mL 20 MG IVP (11:16)
[2023-05-03 11:43] LABS: Basophils % 0.2 %; Eosinophils # 0.2 10^3/uL (0.0-0.8); Eosinophils % 1.6 %; Hematocrit 31.5 % (37.0-47.0); Hemoglobin 9.6 g/dL (11.5-15.3); Lymphocytes # 1.6 10^3/uL (0.8-4.8); Lymphocytes % 16.5 %; Mean Corpuscular HGB Conc 30.5 g/dL (30.0-36.0); Mean Corpuscular Hemoglobin 27.8 pg (28.0-34.0); Mean Corpuscular Volume 91.3 fl (81-99); Mean Platelet Volume 10.1 fL (7.4-10.4); Monocytes # 1.4 10^3/uL (0.2-0.9); Monocytes % 15.3 %; Neutrophils # 6.17 10^3/uL (1.8-7.7); Neutrophils % 65.4 %; Nucleated Red Blood Cells % 0 %; Platelet Count 324 10^3/cmm (130-400); Red Blood Count 3.45 10^6/uL (4.1-5.3); Red Cell Distribution Width 14.6 % (12.1-15.1); White Blood Count 9.4 10^3/uL (4.0-10.0)
[2023-05-03] MEDS: amoxicillin-clav 875-125 mg Tablet 1 TAB PO (18:11)
[2023-05-03] MEDS: acetaminophen 325 mg Tablet 650 MG PO (18:21)
[2023-05-03] MEDS: atorvastatin 40 mg Tablet PO (20:04)
[2023-05-04] VITALS (13 sets, daily range): BP systolic 105–131; BP diastolic 67–80; PULSE 63–91; RESP 15–24; TEMP 36.7–37; O2SAT 91–95
[2023-05-04] MEDS: enoxaparin 40 mg/0.4 mL Syringe SUBCUT (01:08)
[2023-05-04 04:13] LABS: Hematocrit 29.7 % (37.0-47.0); Hemoglobin 9.3 g/dL (11.5-15.3); Mean Corpuscular HGB Conc 31.3 g/dL (30.0-36.0); Mean Corpuscular Hemoglobin 28.4 pg (28.0-34.0); Mean Corpuscular Volume 90.8 fl (81-99); Mean Platelet Volume 10.3 fL (7.4-10.4); Platelet Count 287 10^3/cmm (130-400); Red Blood Count 3.27 10^6/uL (4.1-5.3); Red Cell Distribution Width 14.9 % (12.1-15.1); White Blood Count 9.7 10^3/uL (4.0-10.0)
[2023-05-04 04:43] LABS: Anion Gap 19.5 (5-19); Blood Urea Nitrogen 24 mg/dL (8-23); Calcium 9.2 mg/dL (8.5-10.5); Carbon Dioxide 19 mmol/L (22-29); Chloride 103 mmol/L (98-107); Glomerular Filtration Rate 71.1 mL/min (90-130); Glucose 89 mg/dL (65-115); Osmolality Calculated 290 mOsm/kg (285-295); Potassium 3.5 mmol/L (3.5-5.1); Sodium 138 mmol/L (136-145)
[2023-05-04 05:03] LABS: Absolute Eosinophils 0.3 10^3/cmm (0.0-0.7); Absolute Segmented Neutrophil 5.4 10/cmm (1.6-7.1); Eosinophils 4 %; Lymphocytes 24 %; Lymphocytes Absolute 2.3 10^3/cmm (1.2-3.4); Monocytes Absolute 1.6 10^3/cmm (0.1-0.6); Segmented Neutrophils 56 %; Total Cells Counted 100 (0-100)
[2023-05-04 05:04] LABS: Absolute Neutrophil 5.4 10^3/cmm (1.4-6.5); Platelet Estimate Normal (Normal); Toxic Granulation 1+; Toxic Vacuolation TRACE
[2023-05-04] MEDS: clopidogrel 75 mg Tablet PO (05:11)
[2023-05-04] MEDS: aspirin 81 mg EC Tablet PO (05:11)
[2023-05-04] MEDS: ALPRAZolam 0.5 mg Tablet 1 MG PO ×2 (05:14→20:28)
[2023-05-04] MEDS: ipratropium-albuterol 3 mL Neb INHALATION ×3 (08:55→19:28)
[2023-05-04] MEDS: budesonide 0.5 mg/2 mL Neb INHALATION ×2 (08:55→19:28)
[2023-05-04] MEDS: acetylcysteine 200 mg/mL SDV 4 mL 100 MG INHALATION (08:58)
[2023-05-04] MEDS: pantoprazole DR 40 mg Tablet PO (10:03)
[2023-05-04] MEDS: baclofen 10 mg Tablet PO ×3 (10:04→20:29)
[2023-05-04] MEDS: amoxicillin-clav 875-125 mg Tablet 1 TAB PO ×2 (10:04→17:35)
[2023-05-04] MEDS: ranolazine (12HR) 500 mg Tablet 1000 MG PO ×2 (10:04→17:35)
[2023-05-04] MEDS: nicotine 14 mg Patch 1 PATCH TRANSDERMA (10:04)
[2023-05-04] MEDS: topiramate 25 mg Tablet 50 MG PO ×2 (10:04→17:35)
[2023-05-04] MEDS: carvedilol 3.125 mg Tablet PO ×2 (10:04→17:35)
[2023-05-04] MEDS: FUROsemide 10 mg/mL SDV 2mL 20 MG IVP (10:49)
[2023-05-04] MEDS: TRANYLCYPROMINE 10 MG 30 EACH PO ×2 (11:34→17:34)
[2023-05-04] MEDS: acetaminophen 325 mg Tablet 650 MG PO (20:28)
[2023-05-04] MEDS: atorvastatin 40 mg Tablet PO (20:29)
--- NOTE | 2023-05-04 21:11 | PM.PN ---
Subjective Subjective: Patient reports ongoing shortness of breath and cough. Continues to have numbness in lower extremity. Endorses continued weakness. Denies fevers, chills or emesis. Vitals/I&O/Wt Last Vital Signs Temp 98.2 F 05/04/23 20:00 Pulse 79 05/04/23 20:00 Resp 19 H 05/04/23 20:00 BP 113/72 05/04/23 20:00 Pulse Ox 92 05/04/23 20:00 O2 Del Method Nasal Cannula 05/04/23 19:28 O2 Flow Rate 3 05/04/23 20:32 FiO2 40 04/30/23 19:25 05/04/23 05/04/23 05/04/23 06:59 14:59 22:59 Intake Total 480 / 963.125 360 / 360 240 / 600 Balance 480 / 963.125 360 / 360 240 / 600 Physical Exam Narrative: General: Patient is awake and alert. Head: Normocephalic. Atraumatic. EOM intact. Neck: No JVD. Cardiovascular: RRR. No gallops. No murmurs. Lungs: Bibasilar crackles and rales. Speaking in short sentences. End expiratory wheezing. Skin: No jaundice. No rashes. Abdomen: Normal bowel sounds, abdomen soft and nontender. Genito Urinary: Genital exam not performed since complaints not related. Rectal: Rectal exam not performed since no symptoms indicated blood loss. Extremities: No cyanosis or clubbing. Musculoskeletal: Normal muscle mass. Neurological: No myoclonus. Moves all 4 extremities. 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 Coding Level of Care Code Acute Code for Chg Fwd Diagnoses Neuropathic pain M79.2 Pneumonia J18.9 Congestive heart failure I50.9 Acute hypoxemic respiratory failure J96.01 GEOVANNY (acute kidney injury) N17.9 At risk for aspiration pneumonia Z91.89 Aspiration pneumonia due to regurgitated gastric secretions J69.0 Lung nodules R91.8 Mixed conductive and sensorineural hearing loss, bilateral H90.6 Depression resistant to treatment F32.9 Hypokalemia E87.6
[2023-05-05] VITALS (9 sets, daily range): BP systolic 90–108; BP diastolic 57–71; PULSE 71–81; RESP 16–19; TEMP 36.5–37; O2SAT 92–98
[2023-05-05] MEDS: enoxaparin 40 mg/0.4 mL Syringe SUBCUT (01:37)
[2023-05-05] MEDS: acetaminophen 325 mg Tablet 650 MG PO ×2 (05:38→14:30)
[2023-05-05] MEDS: aspirin 81 mg EC Tablet PO (05:38)
[2023-05-05] MEDS: clopidogrel 75 mg Tablet PO (05:38)
[2023-05-05] MEDS: ipratropium-albuterol 3 mL Neb INHALATION ×2 (08:00→13:29)
[2023-05-05] MEDS: budesonide 0.5 mg/2 mL Neb INHALATION (08:00)
[2023-05-05] MEDS: ranolazine (12HR) 500 mg Tablet 1000 MG PO (08:37)
[2023-05-05] MEDS: baclofen 10 mg Tablet PO ×2 (08:37→14:30)
[2023-05-05] MEDS: amoxicillin-clav 875-125 mg Tablet 1 TAB PO (08:37)
[2023-05-05] MEDS: nicotine 14 mg Patch 1 PATCH TRANSDERMA (08:38)
[2023-05-05] MEDS: pantoprazole DR 40 mg Tablet PO (08:38)
[2023-05-05] MEDS: topiramate 25 mg Tablet 50 MG PO (08:38)
[2023-05-05] MEDS: TRANYLCYPROMINE 10 MG 30 EACH PO (08:38)
[2023-05-05] MEDS: carvedilol 3.125 mg Tablet PO (08:38)
--- NOTE | 2023-05-05 09:28 | PC.SOCIAL ---
IMM Update IMM updated with patient. Verbalized an understanding. Copy Pg 2 provided. Initialled, dated, timed, and placed in chart.
--- NOTE | 2023-05-05 15:35 | P.DS_ITS ---
Discharge Providers Date of Admission: 04/30/23 20:32 Date of Discharge: May 05, 2023 Attending Provider at Admission: Theresa Mccollum MD Attending Provider at Discharge: Juan Jose Long MD Primary Care Provider: Venancio Mota MD Diagnoses at Discharge Discharge Diagnosis (1) Neuropathic pain: Status: Acute (2) Pneumonia: Status: Acute (3) Congestive heart failure: Status: Acute (4) Acute hypoxemic respiratory failure: Status: Resolved (5) GEOVANNY (acute kidney injury): Status: Acute (6) At risk for aspiration pneumonia: Status: Acute (7) Aspiration pneumonia due to regurgitated gastric secretions: Status: Acute (8) Lung nodules: Status: Acute (9) Mixed conductive and sensorineural hearing loss, bilateral: Status: Acute (10) Depression resistant to treatment: Status: Acute (11) Hypokalemia: Status: Acute Reason for Visit Reason for Visit: RESP. DISTRESS Hospital Course Hospital Course Rebecca Coombs is a 68 year old female with a past medical history significant for coronary artery disease with history of CABG, COPD, hyperlipidemia, tobacco use disorder, anemia, and chronic aspiration who presented with shortness of breath and productive cough found to be hypoxic by EMS. Patient found to have aspiration pneumonia with acute hypoxia. She was treated with broad spectrum antibiotics and narrowed to Augmentin. She underwent diuresis for acute diastolic heart failure exacerbation. Symptoms improved. She was found to have debility and physical deconditioning which improved with treatment. Patient declined consideration of placement. She was discharged to home in stable condition. She is to follow up with her primary care provider. Patient was also found to have symptomatic lumbar stenosis with abnormal MRI imaging as noted above. Patient referred to Dr Calvillo's clinic for further evalu ation. Physical Exam Narrative: General: Patient is awake and alert. Pleasant. Head:? Normocephalic. Atraumatic. EOM intact. Neck: No JVD. Cardiovascular: RRR. No gallops. No murmurs. Lungs: Faint rhonchi. Good air movement. No crackles. No respiratory distress. Skin: No jaundice. No rashes. Abdomen: Normal bowel sounds, abdomen soft and nontender. Extremities: No cyanosis or clubbing. Musculoskeletal: Normal muscle mass. Neurological:? No myoclonus.? Moves all 4 extremities. Discharge Data Studies Completed and Pending Completed Studies During Hospitalization Category Date Time Status XR chest 1V portable [id number] Routine Exams 05/03/23 10:55 Completed XR chest 1V portable [id number] Stat Exams 04/30/23 16:26 Completed MR lumbar spine wo con* [id number] Routine MRI 05/03/23 10:53 [place] liver [id number] Routine Ultrasound 05/01/23 00:52 Completed Pending at discharge Category Date Time Status Blood Culture Stat Lab 04/30/23 18:15 Results Radiology Impressions Liver Ultrasound 05/01/23 00:52 IMPRESSION: No acute findings. ADDENDUM: 05/01/23 0553 The common bile duct is within normal limit. No intrahepatic biliary ductal dilation. The right kidney is unremarkable. Lumbar Spine MRI 05/03/23 10:53 IMPRESSION: Overall no significant changes since September 22, 2021 1. Mild lumbar curve. No acute compression. 2. Mild central canal stenosis L4-L5 with small central disc protrusion with impingement on traversing RIGHT L5 nerve root in the subarticular recess. Mild RIGHT L4-L5 foraminal narrowing. 3. Mild annular bulging L3-L4 with slight narrowing of the subarticular recess. 4. Small amount of edema in the L3-L4, LEFT L4-L5 and LEFT L5-S1 facets likely degenerative. 5. Lobulated infrarenal abdominal aortic aneurysm appears slightly progressed compared to the CTa in 2019 previously measuring 3.1 x 3.1 cm. Today largest component measures 3.4 x 3.5 cm Chest X-Ray 05/03/23 10:55 IMPRESSION: 1. Improved bibasal infiltrates since the last exam. There is still significant infiltrate in the medial aspect of the right lung. Laboratory Results WBC 9.7 10^3/uL (4.0-10.0) 05/04/23 03:16 RBC 3.27 10^6/uL (4.1-5.3) L 05/04/23 03:16 Hgb 9.3 g/dL (11.5-15.3) L 05/04/23 03:16 Hct 29.7 % (37.0-47.0) L 05/04/23 03:16 MCV 90.8 fl (81-99) 05/04/23 03:16 MCH 28.4 pg (28.0-34.0) 05/04/23 03:16 MCHC 31.3 g/dL (30.0-36.0) 05/04/23 03:16 RDW 14.9 % (12.1-15.1) 05/04/23 03:16 Plt Count 287 10^3/cmm (130-400) 05/04/23 03:16 MPV 10.3 fL (7.4-10.4) 05/04/23 03:16 Neut % (Auto) 65.4 % 05/03/23 11:32 Lymph % (Auto) Not Reportable 05/04/23 03:16 [place] % (Auto) Not Reportable 05/04/23 03:16 Eos % (Auto) 1.6 % 05/03/23 11:32 Baso % (Auto) 0.2 % 05/03/23 11:32 Neut # (Auto) 6.17 10^3/uL (1.8-7.7) 05/03/23 11:32 Lymph # (Auto) Not Reportable 05/04/23 03:16 [place] # (Auto) Not Reportable 05/04/23 03:16 Eos # (Auto) 0.2 10^3/uL (0.0-0.8) 05/03/23 11:32 Baso # (Auto) 0.0 10^3/uL (0.0-0.1) 05/03/23 11:32 Nucleated RBC % (auto) 0 % 05/03/23 11:32 Total Counted 100 (0-100) 05/04/23 03:16 Atypical Lymphs % 0.0 % (0-5) 05/04/23 03:16 Absolute Neutrophils 5.4 10^3/cmm (1.4-6.5) 05/04/23 03:16 Segmented Neutrophils 56 % 05/04/23 03:16 Abs Segm Neuts (Man) 5.4 10/cmm (1.6-7.1) 05/04/23 03:16 Band Neutrophils 0.0 % 05/04/23 03:16 Abs Band Neuts (Man) 0.0 10^3/cmm (0.0-1.2) 05/04/23 03:16 Absolute Lymphocytes 2.3 10^3/cmm (1.2-3.4) 05/04/23 03:16 Lymphocytes (Manual) 24 % 05/04/23 03:16 Monocytes (Manual) 16.0 % 05/04/23 03:16 Absolute Monocytes 1.6 10^3/cmm (0.1-0.6) H 05/04/23 03:16 Eosinophils (Manual) 4 % 05/04/23 03:16 Absolute Eosinophils 0.3 10^3/cmm (0.0-0.7) 05/04/23 03:16 Basophils (Manual) 0.0 % 05/04/23 03:16 Absolute Basophils 0.0 10^3/cmm (0.0-0.2) 05/04/23 03:16 Nucleated RBCs # 0.0 /100WBC 05/03/23 11:32 Toxic Granulation 1+ H 05/04/23 03:16 Toxic Vacuolation Trace 05/04/23 03:16 Platelet Estimate Normal (Normal) 05/04/23 03:16 PT 14.60 SECONDS (12.1-14.9) 04/30/23 16:20 INR 1.10 (0.8-1.2) 04/30/23 16:20 Specimen Type Arterial 05/01/23 09:57 Sample Site Brachial, left 05/01/23 09:57 ABG pH 7.33 (7.35-7.45) L 05/01/23 09:57 ABG pCO2 38.6 mmHg (35-45) 05/01/23 09:57 ABG pO2 70.9 mmHg (80.0-100.0) L 05/01/23 09:57 ABG HCO3 20.1 mmol/L (22-26) L 05/01/23 09:57 ABG Base Excess -5.4 mmol/L (-2.0-2.0) L 05/01/23 09:57 Elmer Test Pos 05/01/23 09:57 Hematocrit 30.9 % (37-47) L 05/01/23 09:57 Hgb O2 Saturation 88.8 % (95-100) L 04/30/23 16:20 Carboxyhemoglobin 1.5 %THgb (0.4-20.1) 04/30/23 16:20 Methemoglobin 0.6 % (0.4-1.5) 04/30/23 16:20 Total Hemoglobin 11.8 g/dL (12-16) L 04/30/23 16:20 O2 Delivery Device Nc 05/01/23 09:57 O2 Liters/Min 5.0 % 05/01/23 09:57 FiO2 40.0 % 05/01/23 09:57 Pad Machine Feeder ID Mo nro 05/01/23 09:57 Sodium 138 mmol/L (136-145) 05/04/23 03:16 Potassium 3.5 mmol/L (3.5-5.1) 05/04/23 03:16 Chloride 103 mmol/L (98-107) 05/04/23 03:16 Carbon Dioxide 19 mmol/L (22-29) L 05/04/23 03:16 Anion Gap 19.5 (5-19) H 05/04/23 03:16 BUN 24 mg/dL (8-23) H 05/04/23 03:16 Creatinine 0.8 mg/dL (0.5-0.9) 05/04/23 03:16 GFR Calculation 71.1 mL/min (90-130) L 05/04/23 03:16 Glucose 89 mg/dL (65-115) 05/04/23 03:16 Calculated Osmolality 290 mOsm/kg (285-295) 05/04/23 03:16 Lactic Acid 3.9 mmol/L (0.5-2.2) H 04/30/23 16:20 Lactic Acid (Sepsis) 2.2 mmol/L (0.5-2.2) 04/30/23 19:55 Calcium 9.2 mg/dL (8.5-10.5) 05/04/23 03:16 Magnesium 2.3 mg/dL (1.7-2.3) 04/30/23 16:20 Total Bilirubin 0.4 mg/dL (0.15-1.2) 05/02/23 03:29 AST 382 U/L (0-32) H 05/02/23 03:29 ALT 206 U/L (0-33) H 05/02/23 03:29 Alkaline Phosphatase 87 U/L (35-105) 05/02/23 03:29 Troponin T Baseline 32 ng/L (0-10) H 04/30/23 16:20 Troponin T 120 Minute 29.68 ng/L (0-10) H 04/30/23 18:15 Delta Troponin T -2.32 ABS# (0-10) L 04/30/23 18:15 Troponin T Hi Sens 6Hr 18.95 ng/L (0-10) H 04/30/23 22:19 Troponin T Hi Sens 6Hr Delta -13.05 ng/L (0-12) L 04/30/23 22:19 NT-Pro-B Natriuret Pep 8736 pg/mL (0-125) H 04/30/23 16:20 Total Protein 6.6 g/dL (6.6-8.7) 05/02/23 03:29 Albumin 2.7 g/dL (3.5-5.2) L 05/02/23 03:29 Globulin 3.9 g/dL (1.3-4.6) 05/02/23 03:29 Procalcitonin 96.44 ng/mL (0-0.5) H 04/30/23 16:20 Urine Color Dark yellow (Yellow) 04/30/23 18:46 Urine Appearance Hazy (CLEAR) A 04/30/23 18:46 Urine pH 5 (5-7) 04/30/23 18:46 Ur Specific [place] 1.015 (1.005-1.030) 04/30/23 18:46 Urine Protein 2+ (Negative) H 04/30/23 18:46 Urine Glucose (UA) Norm (Normal) 04/30/23 18:46 Urine Ketones 1+ (Negative) H 04/30/23 18:46 Urine Blood 3+ (Negative) H 04/30/23 18:46 Urine Nitrate Positive (Negative) H 04/30/23 18:46 Urine Bilirubin 1+ (Negative) H 04/30/23 18:46 Urine Urobilinogen 1 mg/dL (Negative) H 04/30/23 18:46 Ur Leukocyte Esterase Trace (Negative) H 04/30/23 18:46 Urine RBC 0-4 /hpf (0-2) H 04/30/23 18:46 Urine WBC 5-10 /hpf (0-5) H 04/30/23 18:46 Ur Squamous Epith Cells 0-4 /hpf (0-5) H 04/30/23 18:46 Amorphous Sediment 1+ /hpf 04/30/23 18:46 Urine Bacteria 1+ /hpf (NONE) H 04/30/23 18:46 Hyaline Casts 5-10 /lpf H 04/30/23 18:46 Coarse Granular Casts 5-10 /lpf H 04/30/23 18:46 Urine Mucus Trace /hpf 04/30/23 18:46 Nasal Influ A H1 2009 PCR Not detected (NOT DETECT) 04/30/23 18:08 Vancomycin Trough 11.7 ug/mL (10-15) 05/02/23 18:01 Adenovirus (PCR) Not detected (NOT DETECT) 04/30/23 18:08 C. pneumoniae DNA (PCR) Not detected (NOT DETECT) 04/30/23 18:08 Coronavirus 229E (PCR) Not detected (NOT DETECT) 04/30/23 18:08 Hepatitis A IgM Ab Non-reactive (Nonreactive) 05/01/23 05:41 Hep Bs Antigen Non-reactive (Nonreactive) 05/01/23 05:41 Hep Bs Antibody 3.5 (11.5-1000) L 05/01/23 05:41 Hep B Core Total Ab Non-reactive (Nonreactive) 05/01/23 05:41 Hepatitis C Antibody Non-reactive (Nonreactive) 05/01/23 05:41 Human Metapneumovir PCR Not detected (NOT DETECT) 04/30/23 18:08 Influenza A (H1) PCR Not detected (NOT DETECT) 04/30/23 18:08 Influenza A (H3) PCR Not detected (NOT DETECT) 04/30/23 18:08 Influenza Type A (PCR) Not detected (NOT DETECT) 04/30/23 18:08 Influenza Type B (PCR) Not detected (NOT DETECT) 04/30/23 18:08 M. pneumoniae (PCR) Not detected (NOT DETECT) 04/30/23 18:08 Parainfluenza 1 (PCR) Not detected (NOT DETECT) 04/30/23 18:08 Parainfluenza 2 (PCR) Not detected (NOT DETECT) 04/30/23 18:08 Parainfluenza 3 (PCR) Not detected (NOT DETECT) 04/30/23 18:08 Parainfluenza 4 (PCR) Not detected (NOT DETECT) 04/30/23 18:08 RSV Type A (PCR) Not detected (NOT DETECT) 04/30/23 18:08 RSV Type B (PCR) Not detected (NOT DETECT) 04/30/23 18:08 Entero/Rhino (PCR) Not detected (NOT DETECT) 04/30/23 18:08 SARS-CoV-2 (PCR) Not detected (NOT DETECT) 04/30/23 18:08 MRSA (PCR) Not detected (NOT DETECTED) 05/01/23 07:50 Procedures Performed None Vitals Last Vital Signs Temp 98.0 F 05/05/23 11:26 Pulse 75 05/05/23 14:00 Resp 16 05/05/23 13:30 BP 108/71 05/05/23 11:26 Pulse Ox 92 05/05/23 13:54 O2 Del Method Nasal Cannula 05/05/23 13:30 O2 Flow Rate 3 05/05/23 13:30 FiO2 40 04/30/23 19:25 Discharge Plan Discharge Patient Disposition: Home Condition: Stable Prescriptions: New amoxicillin-pot clavulanate 875-125 mg Tablet 1 tab PO BID 5 Days Qty: 10 0RF Continued multivitamin [Daily Multi-Vitamin] Tablet 1 tab PO QAM ascorbate calcium (vitamin C) 500 mg tablet 1,000 mg PO QAM magnesium 250 mg tablet 250 mg PO QAM cholecalciferol (vitamin D3) 50 mcg (2,000 unit) tablet 2,000 unit PO QAM aspirin [Adult Aspirin Regimen] 81 mg tablet,delayed release (DR/EC) 81 mg PO QAM nitroglycerin 0.4 mg tablet, sublingual 0.4 mg sublingual Q5M PRN (Reason: chest pain) Qty: 60 3RF Rx Instructions: do not exceed 3 doses per episode montelukast 10 mg tablet 10 mg PO QAM Qty: 90 12RF clopidogrel [Plavix] 75 mg tablet 75 mg PO QAM Qty: 90 12RF potassium chloride 20 mEq tablet,ER particles/crystals 20 meq PO QAM Qty: 90 3RF omeprazole 20 mg capsule,delayed release(DR/EC) 20 mg PO BID Qty: 180 3RF [place] 10 mg tablet 30 mg PO BID@10,17 Qty: 180 11RF levalbuterol tartrate [Xopenex HFA] 45 mcg/actuation HFA aerosol inhaler 2 inh inhalation Q6H Qty: 15 3RF topiramate 50 mg tablet 50 mg PO BID 90 Days Qty: 180 3RF fluticasone propion-salmeterol [Wixela Inhub] 100-50 mcg/dose blister with device 1 inh INHALATION BID Qty: 60 11RF baclofen 10 mg tablet 10 mg PO TID Qty: 90 12RF alprazolam [Xanax] 1 mg tablet 1 mg PO TID 90 Days Qty: 270 1RF isosorbide mononitrate 30 mg tablet extended release 24 hr 30 mg PO DAILY Qty: 90 3RF carvedilol 3.125 mg tablet See Rx Instructions .ROUTE .COMPLEX Qty: 180 3RF Dose Instruction: TAKE 1 TABLET BY MOUTH TWICE DAILY WITH FOOD Rx Instructions: TAKE 1 TABLET BY MOUTH TWICE DAILY WITH FOOD lovastatin 20 mg tablet 20 mg PO BEDTIME Qty: 90 1RF furosemide 40 mg tablet See Rx Instructions .ROUTE .COMPLEX Qty: 90 11RF Dose Instruction: TAKE 1 TABLET BY MOUTH DAILY FOR SWELLING Rx Instructions: TAKE 1 TABLET BY MOUTH DAILY FOR SWELLING fluticasone propionate 50 mcg/actuation spray,suspension See Rx Instructions .ROUTE .COMPLEX 90 Days Qty: 16 3RF Dose Instruction: SHAKE LIQUID AND USE 2 SPRAYS IN EACH NOSTRIL TWICE DAILY Rx Instructions: SHAKE LIQUID AND USE 2 SPRAYS IN EACH NOSTRIL TWICE DAILY ipratropium-albuterol 0.5 mg-3 mg(2.5 mg base)/3 mL solution for nebulization 3 ml INHALATION TID PRN (Reason: Shortness Of Breath) lidocaine 5 % Ointment See Rx Instructions .ROUTE .COMPLEX Rx Instructions: as directed prn melatonin 10 mg Tablet 10 mg PO BEDTIME PRN (Reason: Sleep) Colace 100 mg capsule 200 mg PO BEDTIME PRN (Reason: Constipation) ranolazine 1,000 mg tablet extended release 12 hr 1,000 mg PO BID Fish Oil 300-1,000 mg Capsule 1 cap PO DAILY Discharge Orders: Discharge Order (Routine); Ordered 05/05/23 Ordered By: Juan Jose Long Other Ambulatory Orders: DME: Wheelchair (Order) Location: None Selected Ordered By: Juan Jose Long Referrals: Dallas Calvillo DO [Physician] - 1 week (Lower extremity weakness, abnormal MRI) Venancio Mota MD [Primary Care Provider] - 4-7 days Discharge Diet: Advance as tolerated, Usual diet and Cardiac Discharge Activity: Resume usual activity and Increase activity as tolerated Patient Instructions: Amoxicillin/Clavulanate Potassium (By mouth), Pneumonitis (DC), Hypokalemia (DC), Opioid Safety Plan of Treatment: 1. Increase activity as tolerated. 2. Take medications as prescribed. 3. Follow up with PCP. 4. Establish care with orthopedics. Discharge Attestations Time Spent in Discharge Care*: greater than 30 min Status at Discharge: Overall status at discharge: patient is progressing back to baseline Quality Metrics Clinical Quality Measures [ No reported AMI, CVA or VTE this stay] Coding Level of Care Code Acute Code for Chg Fwd Diagnoses Neuropathic pain M79.2 Pneumonia J18.9 Congestive heart failure I50.9 Acute hypoxemic respiratory failure J96.01 GEOVANNY (acute kidney injury) N17.9 At risk for aspiration pneumonia Z91.89 Aspiration pneumonia due to regurgitated gastric secretions J69.0 Lung nodules R91.8 Mixed conductive and sensorineural hearing loss, bilateral H90.6 Depression resistant to treatment F32.9 Hypokalemia E87.6
== END 2023-05-05 16:52 | disposition home or self-care (01) | DRG 177 ==
LOC: ER 20:08 → MEDSURG 20:32
PROVIDERS: Emergency Medicine; Internal Medicine; Admitting Provider Student in an Organized Health Care Education/Training Program; Emergency Provider Emergency Medicine; PCP Family Medicine; Visit Provider Internal Medicine
DX: J69.0 Pneumonitis due to inhalation of food and vomit (principal); I50.33 Acute on chronic diastolic (congestive) heart failure; N17.9 Acute kidney failure, unspecified; E87.1 Hypo-osmolality and hyponatremia; E87.20 Acidosis, unspecified; I25.10 Atherosclerotic heart disease of native coronary artery without angina pectoris; Z95.1 Presence of aortocoronary bypass graft; J44.9 Chronic obstructive pulmonary disease, unspecified; E78.5 Hyperlipidemia, unspecified; Z87.891 Personal history of nicotine dependence; I11.0 Hypertensive heart disease with heart failure; M48.061 Spinal stenosis, lumbar region without neurogenic claudication; Z79.82 Long term (current) use of aspirin; Z79.02 Long term (current) use of antithrombotics/antiplatelets; E78.00 Pure hypercholesterolemia, unspecified; F33.42 Major depressive disorder, recurrent, in full remission; I25.2 Old myocardial infarction; Z96.611 Presence of right artificial shoulder joint; R91.8 Other nonspecific abnormal finding of lung field; G89.29 Other chronic pain; H90.6 Mixed conductive and sensorineural hearing loss, bilateral
CPT/HCPCS: 36415; 36600; 71045; 72148; 76705; 80048; 80053; 80202; 81001; 82803; 82805; 83605; 83735; 83880; 84145; 84484; 85007; 85025; 85610; 86403; 86705; 86706; 86709; 86803; 87040; 87070; 87077; 87086; 87186; 87340; 87449; 87486; 87581; 87633; 87641; 93005; 94640; 94660; 94760; 96365; 96367; 96372; 97110; 97116; 97162; 97530; 99291; J1650; J1940; J2543; J3370; J7030; J7608; J7614; J7626

== ENCOUNTER → 2023-05-24 12:15 | Outpatient (BNVA) | payer MEDICARE, SELFPAY | PROVIDERS: PCP Family Medicine; Visit Provider Internal Medicine Pulmonary Disease | DX: Z91.89 Other specified personal risk factors, not elsewhere classified (principal); J18.9 Pneumonia, unspecified organism; R91.8 Other nonspecific abnormal finding of lung field; R19.7 Diarrhea, unspecified; R06.02 Shortness of breath | CPT/HCPCS: 36415; 71046; 80053; 85025; 99214 ==

== ENCOUNTER 2023-05-28 11:28 | Outpatient (CLI) | payer MEDICARE, SELFPAY ==
[2023-05-28 12:10] LABS: Basophils # 0.1 10^3/uL (0.0-0.1); Basophils % 1.2 %; Eosinophils # 0.3 10^3/uL (0.0-0.8); Eosinophils % 4.6 %; Hematocrit 34.5 % (37.0-47.0); Hemoglobin 10.1 g/dL (11.5-15.3); Lymphocytes # 2.1 10^3/uL (0.8-4.8); Lymphocytes % 30.1 %; Mean Corpuscular HGB Conc 29.3 g/dL (30.0-36.0); Mean Corpuscular Hemoglobin 27.2 pg (28.0-34.0); Mean Corpuscular Volume 92.7 fl (81-99); Mean Platelet Volume 10.1 fL (7.4-10.4); Monocytes # 0.9 10^3/uL (0.2-0.9); Monocytes % 12.8 %; Neutrophils # 3.52 10^3/uL (1.8-7.7); Nucleated Red Blood Cells % 0 %; Platelet Count 542 10^3/cmm (130-400); Red Blood Count 3.72 10^6/uL (4.1-5.3); Red Cell Distribution Width 15.7 % (12.1-15.1); White Blood Count 6.9 10^3/uL (4.0-10.0)
[2023-05-28 12:39] LABS: Alanine Aminotransferase 13 U/L (0-33); Albumin Level 3.2 g/dL (3.5-5.2); Alkaline Phosphatase 87 U/L (35-105); Anion Gap 15.4 (5-19); Aspartate Amino Transferase 25 U/L (0-32); Blood Urea Nitrogen 9 mg/dL (8-23); Calcium 9.1 mg/dL (8.5-10.5); Carbon Dioxide 23 mmol/L (22-29); Chloride 104 mmol/L (98-107); Globulin 4.1 g/dL (1.3-4.6); Glomerular Filtration Rate 49.2 mL/min (90-130); Glucose 89 mg/dL (65-115); Osmolality Calculated 286 mOsm/kg (285-295); Potassium 3.4 mmol/L (3.5-5.1); Sodium 139 mmol/L (136-145); Total Bilirubin 0.2 mg/dL (0.15-1.2); Total Protein 7.3 g/dL (6.6-8.7)
== END 2023-05-28 11:29 | disposition home or self-care (01) ==
LOC: LAB 11:30
PROVIDERS: PCP Family Medicine; Visit Provider Family Medicine
DX: J44.9 Chronic obstructive pulmonary disease, unspecified (principal)
CPT/HCPCS: 80053; 85025

== ENCOUNTER 2023-05-30 16:19 | Outpatient (CLI) | payer MEDICARE, SELFPAY | END 2023-05-30 16:20 | disposition home or self-care (01) | LOC: LAB 16:19 | PROVIDERS: PCP Family Medicine; Visit Provider Family Medicine | DX: A04.72 Enterocolitis due to Clostridium difficile, not specified as recurrent (principal) | CPT/HCPCS: 87493 ==

== ENCOUNTER 2023-06-06 15:55 | Outpatient (CLI) | payer MEDICARE, SELFPAY ==
--- NOTE | 2023-06-06 16:03 | XRR_ITS ---
PROCEDURE INFORMATION: Exam: XR Chest Exam date and time: 06/06/2023 4:09 PM Age: 68 years old Clinical indication: Dyspnea and shortness of breath; Prior surgery; Surgery date: 6+ months; Surgery type: Cabg TECHNIQUE: Imaging protocol: Radiologic exam of the chest. Views: 2 views. COMPARISON: CR XR chest 2V* [id number] 05/24/2023 12:20 PM FINDINGS: Lungs: Right upper lobe atelectasis is again suspected. Lungs are hyperinflated but otherwise free of acute disease. Pleural spaces: Unremarkable. No pleural effusion. No pneumothorax. Heart/Mediastinum: Unremarkable. No cardiomegaly. Bones/joints: A right shoulder prosthesis and sternal sutures are again seen. No acute findings. XR/XR chest 2V* [id number] IMPRESSION: Right upper lobe atelectasis is again suspected. Lungs are hyperinflated but otherwise free of acute disease.
== END 2023-06-06 15:56 | disposition home or self-care (01) ==
LOC: RAD 15:58
PROVIDERS: PCP Family Medicine; Visit Provider Family Medicine
DX: I50.9 Heart failure, unspecified (principal); R06.02 Shortness of breath; Z95.1 Presence of aortocoronary bypass graft; R91.8 Other nonspecific abnormal finding of lung field
CPT/HCPCS: 71046; 80053; 83880; 85025; 85379

== ENCOUNTER 2023-06-18 06:21 | Outpatient (CLI) | payer MEDICARE, SELFPAY ==
--- NOTE | 2023-06-18 06:30 | CT_ITS ---
WS: [id number] CTA OF THE CHEST WITH PULMONARY EMBOLISM PROTOCOL TECHNIQUE: High-resolution contrast enhanced CTA of the chest with coronal and sagittal reformatted i asher with pulmonary embolism protocol. MIP images are also reviewed. CLINICAL INFORMATION: Severe dyspnea with a positive D-dimer. Also follow-up nodu COMPARISON: CT chest February 13, 2023 DLP: 343.[address] scans at [facility] use at least one of these dose optimization techniques: automated e xposure control; mA and/or kV adjustment per patient size (includes targeted exams where dose is matc hed to clinical indication); or iterative reconstruction. FINDINGS: Proximal main pulmonary arteries are normal. Normal segmental and subsegmental pulmonary arteries. No evidence of pulmonary embolus. Previously described subcentimeter pulmonary nodules throughout both lungs progressed compared to the prior examination. Differential considerations include metastatic disease, granulomatous disease inc luding sarcoidosis as previously described. Cluster of nodules in the RIGHT lower lobe medially measu ring 1.6 cm has progressed. Areas of centrilobular nodularity with tree-in-bud pattern more prominent in the mid and upper lobes RIGHT lung. This can be seen with respiratory bronchiolitis, infectious/i nflammatory bronchiolitis to include fungal, bacterial and viral etiologies, as well as endobronchial spread of TB and atypical mycobacterial infection. Normal caliber thoracic aorta. Aortic calcification. Sternotomy. CABG. A few prominent anterior media stinal lymph nodes the largest measuring 13 mm unchanged. No hilar lymphadenopathy.Bilateral thyroid nodules similar to previous. RIGHT TSA degrades some images. Cholecystectomy clips. Small moderate esophageal hiatal hernia. Adrenal glands are normal. Hypertrophic changes thoracic spine with ankylosis. CT/CT angio chest PE protcl [id number] IMPRESSION: 1. Proximal main pulmonary arteries are patent. No evidence of pulmonary embol us. 2. Progressed bilateral subcentimeter pulmonary nodules worse in the RIGHT kelton g with areas of tree-in-bud nodularity. Differential considerations described a geraldine. 3. A few prominent anterior mediastinal lymph nodes unchanged largest measurin g 13 mm. 4. Multinodular thyroid is stable in appearance. 5. Prior cholecystectomy. 6. Small moderate esophageal hiatal hernia.
[2023-06-18] MEDS: iohexol 350 mg/mL 500 mL Btl (per mL) IV (06:56)
== END 2023-06-18 06:22 | disposition home or self-care (01) ==
PROVIDERS: PCP Family Medicine; Visit Provider Family Medicine
DX: R06.00 Dyspnea, unspecified (principal); R91.8 Other nonspecific abnormal finding of lung field; R79.1 Abnormal coagulation profile; E04.1 Nontoxic single thyroid nodule; Z90.49 Acquired absence of other specified parts of digestive tract; K44.9 Diaphragmatic hernia without obstruction or gangrene
CPT/HCPCS: 71275; Q9967

== ENCOUNTER → 2023-06-21 10:21 | Outpatient (BNVA) | payer MEDICARE, SELFPAY | PROVIDERS: PCP Family Medicine; Visit Provider Internal Medicine Pulmonary Disease | DX: R91.8 Other nonspecific abnormal finding of lung field; J69.0 Pneumonitis due to inhalation of food and vomit; J44.9 Chronic obstructive pulmonary disease, unspecified; Z91.89 Other specified personal risk factors, not elsewhere classified; I25.10 Atherosclerotic heart disease of native coronary artery without angina pectoris; K44.9 Diaphragmatic hernia without obstruction or gangrene; Z87.891 Personal history of nicotine dependence | CPT/HCPCS: 99214 ==

== ENCOUNTER 2023-06-24 13:46 | Outpatient (CLI) | payer MEDICARE, SELFPAY | END 2023-06-24 13:47 | disposition home or self-care (01) | PROVIDERS: PCP Family Medicine; Visit Provider Internal Medicine Pulmonary Disease | DX: J18.9 Pneumonia, unspecified organism (principal); Z91.89 Other specified personal risk factors, not elsewhere classified | CPT/HCPCS: 87015; 87070; 87077; 87116; 87186; 87205; 87206; 87801 ==

== ENCOUNTER 2023-07-02 12:52 | Outpatient (CLI) | payer MEDICARE, MEDICAID, SELFPAY ==
--- NOTE | 2023-07-02 13:00 | USCV_ITS ---
Rebecca Jose Age: 68 Gender: F : 1955 Exam Date: 07/02/2023 13:43 Ordering Phys: Venancio Mota MD Technologist: Christina Carrera Exam Location: [facility] [place] Indication: SOB, BP: 128 / 72 HR: 69 Rhythm: Sinus Technical Quality: Adequate MEASUREMENTS (Male / Female) Normal Values 2D ECHO LV Diastolic Diameter PLAX 4.1 cm 4.2 - 5.9 / 3.9 - 5.3 cm LV Systolic Diameter PLAX 2.4 cm IVS Diastolic Thickness 1.4 cm 0.6 - 1.0 / 0.6 - 0.9 cm IVS Systolic Thickness 1.5 cm LVPW Diastolic Thickness 1.3 cm 0.6 - 1.0 / 0.6 - 0.9 cm LVPW Systolic Thickness 1.3 cm LVOT Diameter 2.0 cm LV Ejection Fraction 2D Teich 73.4 % LV Ejection Fraction MOD 2C 69.6 % LV Ejection Fraction 2C AL 68.3 % LA Diameter 2.9 cm LA Width 3.5 cm LA Height 4.2 cm RA Width 3.1 cm RA Height 3.0 cm Aorta at Sinotubular Diameter 3.5 cm IVC Diameter 1.5 cm M-MODE Aortic Annulus Diameter 4.5 cm LA Ao Ratio MM 0.7 MV E Point Septal Separation 0.5 cm DOPPLER AV Peak Velocity 128.0 cm/s LVOT Peak Velocity 122.0 cm/s AV Area Cont Eq vti 3.1 cm squared AV Area Cont Eq pk 3.0 cm squared MV Peak Velocity 131.0 cm/s MV Area PHT 2.9 cm squared Mitral E to A Ratio 0.6 MV E' Velocity 38.5 cm/s Mitral E to MV E' Ratio 10.2 Mitral E to LV E' Lateral Ratio 8.9 Mitral E to LV E' Septal Ratio 12.0 TR Peak Velocity 246.3 cm/s TR Peak Gradient 24.3 mmHg Right Atrial Pressure 5.0 mmHg Pulmonary Artery Systolic Pressu 29.3 mmHg PV Peak Velocity 86.0 cm/s RV Acceleration Time 0.1 s RV Ejection Time 0.3 s RV AcT/ET 0.5 FINDINGS Left Ventricle Left ventricle is normal size. LV systolic function is normal with EF of 55 to 60%. No regional wall motion abnormalities are seen. Grade 1 diastolic dysfunction Right Ventricle Grossly normal Right Atrium Normal in size Left Atrium Normal in size Mitral Valve Mild mitral annular calcification. Mild mitral regurgitation. Aortic Valve Structurally normal aortic valve. No significant stenosis or regurgitation seen. Tricuspid Valve Mild tricuspid regurgitation. Pulmonary artery systolic pressure is normal Pulmonic Valve Not well visualized Pericardium Normal Aorta Aortic root is dilated. IVC Appears to be normal CONCLUSIONS LV systolic function is normal with EF of 55 to 60%. Grade 1 diastolic dysfunction. Mild tricuspid regurgitation Aortic root is dilated Compared to prior echocardiogram from 09/10/2022, LV systolic function has improved. Jaiden Feliciano MD (Electronically Signed) Final Date: 10 July 2023 11:14 S
== END 2023-07-02 12:53 | disposition home or self-care (01) ==
PROVIDERS: PCP Family Medicine; Visit Provider Family Medicine
DX: I50.9 Heart failure, unspecified (principal); R07.9 Chest pain, unspecified; I07.1 Rheumatic tricuspid insufficiency
CPT/HCPCS: 93306

== ENCOUNTER → 2023-07-04 11:20 | Outpatient (BNVA) | payer MEDICARE, MEDICAID, SELFPAY | PROVIDERS: PCP Family Medicine; Visit Provider Anesthesiology Pain Medicine | DX: M19.011 Primary osteoarthritis, right shoulder; M19.012 Primary osteoarthritis, left shoulder; M25.552 Pain in left hip | CPT/HCPCS: 73030; 99214 ==

== ENCOUNTER → 2023-07-09 13:54 | Outpatient (BNVA) | payer MEDICARE, SELFPAY | PROVIDERS: PCP Family Medicine; Visit Provider Internal Medicine | DX: E78.00 Pure hypercholesterolemia, unspecified (principal); I10 Essential (primary) hypertension; I25.10 Atherosclerotic heart disease of native coronary artery without angina pectoris; J44.9 Chronic obstructive pulmonary disease, unspecified; Z95.1 Presence of aortocoronary bypass graft; I73.9 Peripheral vascular disease, unspecified; Z87.891 Personal history of nicotine dependence; I25.2 Old myocardial infarction | CPT/HCPCS: 99214 ==

== ENCOUNTER → 2023-07-29 14:19 | Outpatient (BNVA) | payer MEDICARE, SELFPAY | PROVIDERS: PCP Family Medicine; Visit Provider Anesthesiology Pain Medicine | DX: M70.62 Trochanteric bursitis, left hip (principal) | CPT/HCPCS: 20610; 77002; J1030; J3490 ==

== ENCOUNTER → 2023-08-12 10:37 | Outpatient (BNVA) | payer MEDICARE, SELFPAY | PROVIDERS: PCP Family Medicine; Visit Provider Anesthesiology Pain Medicine | DX: M19.011 Primary osteoarthritis, right shoulder; M19.012 Primary osteoarthritis, left shoulder; M54.9 Dorsalgia, unspecified | CPT/HCPCS: 99214 ==

== ENCOUNTER 2023-08-26 14:24 | Outpatient (CLI) | payer MEDICARE, SELFPAY ==
--- NOTE | 2023-08-26 14:30 | CT_ITS ---
WS: [id number] CT chest wo con [id number] HISTORY: follow up Pneumonia TECHNIQUE: Axial imaging performed through the thorax. Coronal and sagittal reformats are submitted. All CT scans at [facility] use at least one of these dose optimization techniques: automated exposure control; mA and/or kV adjustment per patient size (includes targeted exams where dose is mat ched to clinical indication); or iterative reconstruction. CONTRAST: None DLP: 388.23 mGy.cm COMPARISON: 06/18/2023 and 02/13/2023 Lungs and central airway: Continued moderate improvement in aeration throughout the RIGHT lung since the prior study. The airspace and tree-in-bud airspace disease continues to improve. There are persis tent areas of interstitial thickening and nodularity. 6 mm nodule in the RIGHT upper lobe. Mild bronc hial wall thickening in the RIGHT upper lobe. Groundglass nodule measuring 16 x 23 mm in the LEFT low er lobe. There is an area of atelectasis at the lingula. Pleura: Normal. No pleural effusion. Heart and pericardium: Normal size heart with no pericardial effusion. Mediastinum and vandana: Small mediastinal and hilar lymph nodes. Largest lymph node is 10 mm along the RIGHT tracheal region. Vessels: Ectatic aorta with calcification. Pulmonary artery is dilated. Chest wall and lower neck: Prior median sternotomy. RIGHT thyroid nodule 12 mm. Upper abdomen: Infrarenal abdominal aortic aneurysm is identified measuring 3.8 cm. Aneurysm has incr eased from 3.0 cm on 01/07/2020. Osseous structures: Prior RIGHT humeral head prosthesis. No destructive bone lesions are identified. IMPRESSION: 1. Moderate continued improvement in aeration throughout the RIGHT lung. Continued mild interstitial thickening and a few areas of tree-in-bud airspace disease. 2. Groundglass nodule in the LEFT lower lobe measures 16 x 23 mm. This nodule appears more prominent as compared to 06/18/2023. Recommend follow-up chest CT in 6 months. Low-grade neoplasm needs to be ex cluded. 3. Prior CABG. 4. Pulmonary hypertension. 5. Infrarenal abdominal aortic aneurysm at 3.8 cm. Aneurysm has increased in size since 2020. Conside r CTA or ultrasound evaluation of the abdominal aorta.
== END 2023-08-26 14:25 | disposition home or self-care (01) ==
PROVIDERS: PCP Family Medicine; Visit Provider Internal Medicine Pulmonary Disease
DX: J44.9 Chronic obstructive pulmonary disease, unspecified (principal); R91.8 Other nonspecific abnormal finding of lung field; Z72.0 Tobacco use; Z95.1 Presence of aortocoronary bypass graft; I27.20 Pulmonary hypertension, unspecified
CPT/HCPCS: 71250

== ENCOUNTER → 2023-08-30 09:43 | Outpatient (BNVA) | payer MEDICARE, SELFPAY | PROVIDERS: PCP Family Medicine; Visit Provider Internal Medicine | DX: R00.2 Palpitations (principal); I25.10 Atherosclerotic heart disease of native coronary artery without angina pectoris; Z95.1 Presence of aortocoronary bypass graft; R06.00 Dyspnea, unspecified; R07.9 Chest pain, unspecified; I50.9 Heart failure, unspecified; J44.9 Chronic obstructive pulmonary disease, unspecified; J44.1 Chronic obstructive pulmonary disease with (acute) exacerbation; E78.00 Pure hypercholesterolemia, unspecified; I73.9 Peripheral vascular disease, unspecified; I25.2 Old myocardial infarction; I11.0 Hypertensive heart disease with heart failure; Z87.891 Personal history of nicotine dependence | CPT/HCPCS: 36415; 80048; 83880; 99214 ==

== ENCOUNTER → 2023-09-05 13:11 | Outpatient (BNVA) | payer MEDICARE, SELFPAY | PROVIDERS: PCP Family Medicine; Visit Provider Anesthesiology Pain Medicine | DX: M19.011 Primary osteoarthritis, right shoulder (principal) | CPT/HCPCS: 64418; J1030 ==

== ENCOUNTER 2023-09-06 13:05 | Outpatient (CLI) | payer MEDICARE, SELFPAY ==
--- NOTE | 2023-09-06 13:30 | USCV_ITS ---
Rebecca Coombs Age: 68 Gender: F : 1955 Exam Date: 09/06/2023 13:39 Ordering Phys: Jaiden Feliciano M.D ([email or web address]) Technologist: Yan Brambila [place] [facility] [place]: HISTORY: PROCEDURES: Bilateral duplex Venous Insufficiency study of the Deep and Superficial systems was carried out according to normal protocol with the patient in supine positon for deep system and dependent position for the superficial system. FINDINGS: All deep veins demonstrated compressibility without evidence of intraluminal thrombus or increased echogenicity. Spectral analysis of Doppler signals demonstrates normal response to compression maneuvers indicating patency without obstruction. Reflux determinations were made with the patient in the dependent position, the weight being on the contralateral leg. Vein measurements and reflux times are listed below were applicable. No notable reflux was seen at this time. Most of the lt gsaph had been harvested for cabg CONCLUSIONS No evidence of DVT in the above-mentioned identifiable veins. No significant reflux either in the deep or in the superficial veins The left greater saphenous vein was found to be missing, harvested for CABG Dr Olga Garza MD [facility] (Electronically Signed) Final Date: 07 September 2023 14:48 S
== END 2023-09-06 13:06 | disposition home or self-care (01) ==
PROVIDERS: PCP Family Medicine; Visit Provider Internal Medicine
DX: M79.604 Pain in right leg (principal); M79.605 Pain in left leg; R06.00 Dyspnea, unspecified
CPT/HCPCS: 93970

== ENCOUNTER → 2023-09-19 08:45 | Outpatient (BNVA) | payer MEDICARE, SELFPAY | PROVIDERS: PCP Family Medicine; Visit Provider Physician Assistant | DX: R20.2 Paresthesia of skin; M48.061 Spinal stenosis, lumbar region without neurogenic claudication; M19.011 Primary osteoarthritis, right shoulder; M19.012 Primary osteoarthritis, left shoulder | CPT/HCPCS: 99203; 99214 ==

== ENCOUNTER → 2023-09-23 11:03 | Outpatient (BNVA) | payer MEDICARE, MEDICAID, SELFPAY | PROVIDERS: PCP Family Medicine; Visit Provider Internal Medicine Pulmonary Disease | DX: J22 Unspecified acute lower respiratory infection (principal); J44.9 Chronic obstructive pulmonary disease, unspecified; R91.8 Other nonspecific abnormal finding of lung field; I25.10 Atherosclerotic heart disease of native coronary artery without angina pectoris; Z87.891 Personal history of nicotine dependence | CPT/HCPCS: 99214 ==

== ENCOUNTER → 2023-09-27 14:51 | Outpatient (BNVA) | payer MEDICARE, MEDICAID, SELFPAY | PROVIDERS: PCP Family Medicine; Visit Provider Family Medicine | DX: J22 Unspecified acute lower respiratory infection (principal) | CPT/HCPCS: 87070; 87077; 87184; 87205 ==

== ENCOUNTER → 2023-10-08 12:57 | Outpatient (BNVA) | payer MEDICARE, MEDICAID, SELFPAY | PROVIDERS: PCP Family Medicine; Visit Provider Nurse Practitioner Family | DX: I95.1 Orthostatic hypotension (principal) | CPT/HCPCS: 99213 ==

== ENCOUNTER 2023-10-10 13:52 | Outpatient (CLI) | payer MEDICARE, MEDICAID, SELFPAY ==
--- NOTE | 2023-10-10 14:08 | XR_ITS ---
WS: [email or web address] Right shoulder, 3 views, 10/10/2023 Clinical Data: shoulder pain Comparison: Right shoulder, 07/04/2023 Findings: The reverse shoulder arthroplasty remains in good position. No periprosthetic fractures or loosening is seen. Impression: Stable right shoulder arthroplasty.
--- NOTE | 2023-10-10 14:08 | XR_ITS ---
WS: [email or web address] Left foot, 2 views, 10/10/2023 Clinical Data: foot injury Comparison: None. Findings: There is a fracture of the base of the left first proximal phalanx on the lateral aspect. The fractur e extends obliquely into the left MTP joint. There is an erosion of the head of the left first metata rsal which may be surgical. There is erosion of the distal left fifth metatarsal possibly from a buni on. The remainder of the foot is not remarkable. Impression: 1. Fracture at base of proximal phalanx of left first toe. 2. Erosion of the medial aspect of the head of the left first metatarsal. 2. Erosion of the distal aspect of the left fifth metatarsal.
--- NOTE | 2023-10-10 14:08 | XR_ITS ---
WS: [email or web address] Right ankle, 2 views, 10/10/2023 Clinical Data: ankle pain Comparison: None. Findings: There is a fracture of the distal right fibula. The medial malleolus is intact. The ankle mortise is normal. The talus and calcaneus are unremarkable. There is soft tissue swelling over the lateral mall eolus. Impression: Fracture distal right fibula with overlying soft tissue swelling.
--- NOTE | 2023-10-10 14:08 | XR_ITS ---
WS: [email or web address] Right hip, AP view, 10/10/2023 Clinical Data: hip pain Comparison: None. Findings: No new fractures or dislocations are seen. The right hip joint is intact. The soft tissues are not re markable. There is an old fracture of the left pubic symphysis. The right SI joint is nonremarkable. Impression: Negative right hip.
--- NOTE | 2023-10-10 14:08 | XR_ITS ---
WS: [email or web address] Right foot, 2 views, 10/10/2023 Clinical Data: foot injury Comparison: None. Findings: No fractures or dislocations are seen. There is a cortical defect at the medial aspect of the proxima l phalanx of the great toe. No bone destruction or erosion is noted. There is a bunion at the head of the right first metatarsal Impression: 1. Negative for fractures of the right foot. 2. Small erosion at the base of the right proximal phalanx on the medial aspect. 2. Bunion at head of right first metatarsal.
== END 2023-10-10 13:53 | disposition home or self-care (01) ==
PROVIDERS: PCP Family Medicine; Visit Provider Family Medicine
DX: S82.831A Other fracture of upper and lower end of right fibula, initial encounter for closed fracture (principal); S92.912A Unspecified fracture of left toe(s), initial encounter for closed fracture; M21.611 Bunion of right foot; M25.511 Pain in right shoulder; M25.551 Pain in right hip; M25.571 Pain in right ankle and joints of right foot; X58.XXXA Exposure to other specified factors, initial encounter; Y93.9 Activity, unspecified; Y92.9 Unspecified place or not applicable; Y99.9 Unspecified external cause status
CPT/HCPCS: 73030; 73501; 73600; 73620

== ENCOUNTER 2023-10-11 06:00 | Outpatient (CLI) | payer MEDICARE, SELFPAY | END 2023-10-11 23:59 | LOC: SPT 11-18 12:04 | PROVIDERS: PCP Family Medicine; Visit Provider Student in an Organized Health Care Education/Training Program | DX: S82.831A Other fracture of upper and lower end of right fibula, initial encounter for closed fracture (principal); S92.401A Displaced unspecified fracture of right great toe, initial encounter for closed fracture; S92.402A Displaced unspecified fracture of left great toe, initial encounter for closed fracture; W18.30XA Fall on same level, unspecified, initial encounter | CPT/HCPCS: 27786; 28490; 99204; L4361 ==

== ENCOUNTER → 2023-10-17 14:19 | Outpatient (BNVA) | payer MEDICARE, MEDICAID, SELFPAY | PROVIDERS: PCP Family Medicine; Visit Provider Physician Assistant | DX: S82.831A Other fracture of upper and lower end of right fibula, initial encounter for closed fracture (principal); S92.401A Displaced unspecified fracture of right great toe, initial encounter for closed fracture; S92.402A Displaced unspecified fracture of left great toe, initial encounter for closed fracture; X58.XXXA Exposure to other specified factors, initial encounter | CPT/HCPCS: 73610; 73630; 99213 ==

== ENCOUNTER → 2023-10-29 13:52 | Outpatient (BNVA) | payer MEDICARE, MEDICAID, SELFPAY | PROVIDERS: PCP Family Medicine; Visit Provider Family Medicine | DX: M48.061 Spinal stenosis, lumbar region without neurogenic claudication (principal); I25.10 Atherosclerotic heart disease of native coronary artery without angina pectoris; D64.9 Anemia, unspecified | CPT/HCPCS: 80053; 80061; 82306; 85025 ==

== ENCOUNTER → 2023-11-12 13:42 | Outpatient (BNVA) | payer MEDICARE, MEDICAID, SELFPAY | PROVIDERS: PCP Family Medicine; Visit Provider Family Medicine | DX: D64.9 Anemia, unspecified (principal) | CPT/HCPCS: 85025 ==

== ENCOUNTER → 2023-11-14 14:13 | Outpatient (BNVA) | payer MEDICARE, SELFPAY | PROVIDERS: PCP Family Medicine; Visit Provider Specialist | DX: G62.89 Other specified polyneuropathies (principal) | CPT/HCPCS: 95908; 95910 ==

== ENCOUNTER → 2023-11-28 10:28 | Outpatient (BNVA) | payer MEDICARE, SELFPAY | PROVIDERS: PCP Family Medicine; Visit Provider Physician Assistant | DX: S82.831A Other fracture of upper and lower end of right fibula, initial encounter for closed fracture (principal); S92.402A Displaced unspecified fracture of left great toe, initial encounter for closed fracture; S92.401A Displaced unspecified fracture of right great toe, initial encounter for closed fracture; X58.XXXA Exposure to other specified factors, initial encounter; S82.831D Other fracture of upper and lower end of right fibula, subsequent encounter for closed fracture with routine healing; X58.XXXD Exposure to other specified factors, subsequent encounter | CPT/HCPCS: 73610; 73630; 97760; 99213; L1902 ==

== ENCOUNTER 2023-11-28 15:03 | Outpatient (CLI) | payer MEDICARE, SELFPAY | END 2023-11-28 15:04 | disposition home or self-care (01) | LOC: SPT 15:04 | PROVIDERS: PCP Family Medicine; Visit Provider Physician Assistant | DX: Z46.89 Encounter for fitting and adjustment of other specified devices (principal); S82.831D Other fracture of upper and lower end of right fibula, subsequent encounter for closed fracture with routine healing; X58.XXXD Exposure to other specified factors, subsequent encounter | CPT/HCPCS: 97760; 99213; L1902 ==

== ENCOUNTER → 2023-12-30 15:51 | Outpatient (BNVA) | payer MEDICARE, SELFPAY | PROVIDERS: PCP Family Medicine; Visit Provider Family Medicine | DX: I11.0 Hypertensive heart disease with heart failure (principal); I50.9 Heart failure, unspecified; I25.10 Atherosclerotic heart disease of native coronary artery without angina pectoris; D64.9 Anemia, unspecified | CPT/HCPCS: 80053; 85025 ==

== ENCOUNTER → 2023-12-31 10:32 | Outpatient (BNVA) | payer MEDICARE, SELFPAY | PROVIDERS: PCP Family Medicine; Visit Provider Anesthesiology Pain Medicine | DX: M54.16 Radiculopathy, lumbar region (principal); M19.011 Primary osteoarthritis, right shoulder; M19.012 Primary osteoarthritis, left shoulder | CPT/HCPCS: 99214 ==

== ENCOUNTER → 2024-01-09 14:54 | Outpatient (BNVA) | payer OTHER, SELFPAY | PROVIDERS: PCP Family Medicine; Visit Provider Anesthesiology Pain Medicine | DX: M79.18 Myalgia, other site (principal); I25.10 Atherosclerotic heart disease of native coronary artery without angina pectoris; E78.00 Pure hypercholesterolemia, unspecified; I25.2 Old myocardial infarction; I10 Essential (primary) hypertension; J44.9 Chronic obstructive pulmonary disease, unspecified; Z95.1 Presence of aortocoronary bypass graft; I73.9 Peripheral vascular disease, unspecified; I71.40 Abdominal aortic aneurysm, without rupture, unspecified | CPT/HCPCS: 20553; 99214; J1030; J3490 ==

== ENCOUNTER → 2024-02-18 13:47 | Outpatient (BNVA) | payer OTHER, SELFPAY | PROVIDERS: PCP Family Medicine; Visit Provider Student in an Organized Health Care Education/Training Program | DX: T84.038D Mechanical loosening of other internal prosthetic joint, subsequent encounter (principal); Z96.611 Presence of right artificial shoulder joint; S82.831D Other fracture of upper and lower end of right fibula, subsequent encounter for closed fracture with routine healing; X58.XXXD Exposure to other specified factors, subsequent encounter | CPT/HCPCS: 73030; 73610; 99213 ==

== ENCOUNTER 2024-02-21 13:31 | Outpatient (CLI) | payer MEDICARE, SELFPAY ==
--- NOTE | 2024-02-21 13:34 | MM_ITS ---
WS: [email or web address] BILATERAL 3D TOMOSYNTHESIS DIGITAL SCREENING MAMMOGRAPHY WITH CAD CLINICAL INFORMATION: SCREENING HISTORY: Screening mammogram. No current complaints. COMPARISON: 2022 TECHNIQUE: Bilateral CC and MLO views. FINDINGS: Scattered fibroglandular densities bilaterally. No suspicious focal mass, asymmetry, calcifications, or architectural distortion. No evidence of malignancy. Incidental punctate and lucent centered calci fications. Vascular calcification. IMPRESSION: MM/[place] [id number] BI-RADS: 2-Benign FOLLOW UP: 1 Year Follow-up Recommend return to annual screening mammography.
== END 2024-02-21 13:32 | disposition home or self-care (01) ==
LOC: RAD 13:32
PROVIDERS: PCP Family Medicine; Visit Provider Family Medicine
DX: Z12.31 Encounter for screening mammogram for malignant neoplasm of breast (principal)
CPT/HCPCS: 77063; 77067

== ENCOUNTER 2024-03-11 14:17 | Emergency (ER) | payer MEDICARE, MEDICAID, SELFPAY ==
[2024-03-11 14:19] VITALS: BP 106/61; PULSE 79; RESP 16; TEMP 36.6; O2SAT 94; BMI 24.3
--- NOTE | 2024-03-11 14:57 | XRR_ITS ---
PROCEDURE INFORMATION: Exam: XR Chest Exam date and time: 03/11/2024 4:17 PM Age: 68 years old Clinical indication: Injury or trauma; Fall; Blunt trauma (contusions or hematomas) TECHNIQUE: Imaging protocol: Radiologic exam of the chest. Views: 2 views. COMPARISON: CT chest con [id number] 08/26/2023 2:54 PM FINDINGS: Lungs: There is extensive infiltrate in the right base probably involving the right middle lobe. Pleural spaces: Unremarkable. No pleural effusion. No pneumothorax. Heart/Mediastinum: Unremarkable. No cardiomegaly. Bones/joints: There is a right shoulder prosthesis and sternal sutures. No acute findings. XR/XR chest 2V* [id number] IMPRESSION: Right basilar infiltrate.
--- NOTE | 2024-03-11 15:31 | ED_ITS ---
HPI - Fall General: Chief Complaint: Fall Stated Complaint: Fall Time Seen by Provider: 03/11/24 15:28 History of Present Illness: 68-year-old female comes in today at her complaints of falling out of bed patient reports she slid off the side of her bed last night and was able to cr awl to get up in her chair. Patient reports bilateral rib pain. Patient reports symptoms started yesterday. Patient reports some green-colored phlegm. Patient appears nontoxic. Patient speaks in full sentences. Patient does have a history of CHF, COPD, CAD, hypertension patient does endorse a fever of up to 100.8. 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 Status post reverse total arthroplasty of right shoulder Status post laparoscopic cholecystectomy 01/01/2020 S/P right hemicolectomy 01/01/2020 H/O cardiac catheterization Status post colonoscopy S/p bilateral carpal tunnel release H/O rotator cuff surgery History of right shoulder replacement S/P CABG x 4 Hx of appendectomy Family History Daughter Diabetes Sister Diabetes x3 Brother Diabetes Son Hypertension Family/Other Thyroid disease granddaughter Mother Heart disease Denies family history of Colon cancer Ovarian cancer Clotting disorder Hyperlipidemia Breast cancer Anesthesia complication Bleeding disorder Uterine cancer Stroke Social History Smoking and tobacco/nicotine status: former use of tobacco/nicotine (quit smoking 12/2021 ) Quit status (tobacco/nicotine): has quit using Year quit tobacco: 12/2021 Former quit date comment: 2 ppd X 30 years Second hand smoke exposure: No Alcohol intake: never Substance/Drug Use: never Current occupational status: retired Physical Exam Const: COMMON NORMALS: alert HENMT: COMMON NORMALS: normocephalic HEAD & SCALP: normocephalic MOUTH: Normal oral and palatal mucosa present Neck/C-Spine: COMMON NORMALS: full ROM Chest: CHEST: Yes tenderness (Bilateral lateral ribs) Resp: EFFORT & INSPECTION: Yes able to speak in complete sentences AUSCULTATION: diminished lung sounds (Right lung base) Cardio: COMMON NORMALS: regular rate and regular rhythm RATE: regular rate RHYTHM: regular rhythm GI: AUSCULTATION: Yes normoactive bowel sounds PALPATION: No Tenderness to palpation present (GI) Back/Pelvis: COMMON NORMALS: thoracic and lumbar spine normal to inspection Extremity: COMMON NORMALS: no pedal edema Neuro: SENSORIUM/ORIENTATION: Yes alert Skin: COMMON NORMALS: turgor normal (Senile purpura) GENERAL SKIN EXAM: turgor normal (Senile purpura) Course Vital Signs: Vital signs: Vital Signs Temperature 97.9 F 03/11/24 14:19 Pulse Rate 79 03/11/24 14:19 Respiratory Rate 16 03/11/24 14:19 Blood Pressure 106/61 03/11/24 14:19 Pulse Oximetry 94 03/11/24 14:19 Oxygen Delivery Me thod Room Air 03/11/24 14:19 MDM - Fall Medical Decision Making 68-year-old female comes in today for complaints of bilateral lower rib pain and some increasing shortness of breath with productive sputum. Patient appears nontoxic. Patient appears in no acute distress. Differential diagnosis includes but not limited to fracture, contusion, pneumonia, exacerbation of COPD. X-ray notes a infiltrate in the right lower lung. Recommend treatment for pneumonia with Augmentin and azithromycin. Patient was given a dose of ce ftriaxone and azithromycin in the ER. Patient will continue with usual treatment for COPD at home. Patient will return to the ER for worsening symptoms as needed. Patient was stable and discharged home at this time. XR interpretation done by ED provider, pending radiology final review Discharge Plan Discharge Patient Disposition: Home Clinical Impression: Pneumonia Qualifiers: Pneumonia type: due to unspecified organism Laterality: right Lung location: lower lobe of lung Qualified Code(s): J18.9 - Pneumonia, unspecified organism Condition: Stable Prescriptions: New amoxicillin-pot clavulanate 875-125 mg tablet 1 tab PO BID Qty: 14 0RF azithromycin 250 mg tablet 250 mg PO DAILY 4 Days Qty: 4 0RF Rx Instructions: start on day 2 of therapy No Action multivitamin [Daily Multi-Vitamin] Tablet 1 tab PO QAM magnesium 250 mg tablet 250 mg PO QAM cholecalciferol (vitamin D3) 50 mcg (2,000 unit) tablet 2,000 unit PO QAM ascorbate calcium (vitamin C) 500 mg tablet 500 mg PO QAM aspirin [Adult Aspirin Regimen] 81 mg tablet,delayed release (DR/EC) 81 mg PO QAM nitroglycerin 0.4 mg tablet, sublingual 0.4 mg sublingual Q5M PRN (Reason: chest pain) Qty: 60 3RF Rx Instructions: do not exceed 3 doses per episode fluticasone propion-salmeterol [Wixela Inhub] 500-50 mcg/dose blister with device 1 inh inhalation BID Qty: 180 3RF lovastatin 20 mg tablet 20 mg PO BEDTIME Qty: 90 3RF fluticasone propionate 50 mcg/actuation spray,suspension See Rx Instructions .ROUTE .COMPLEX Qty: 96 3RF Dose Instruction: SHAKE LIQUID AND USE 2 SPRAYS IN EACH NOSTRIL TWICE DAILY Rx Instructions: SHAKE LIQUID AND USE 2 SPRAYS IN EACH NOSTRIL TWICE DAILY (DME) right ankle brace See Rx Instructions .Route .MEDSUPPLY Qty: 1 0RF Rx Instructions: As directed alprazolam [Xanax] 1 mg tablet 1 mg PO TID Qty: 90 5RF methylprednisolone acetate [Depo-Medrol] 40 mg/mL suspension 40 mg intra-articular ONCE Qty: 1 0RF bupivacaine (PF) 0.25 % (2.5 mg/mL) solution 9 ml intra-articular ONCE Qty: 1 0RF omeprazole 20 mg capsule,delayed release(DR/EC) 20 mg PO BID Qty: 180 3RF tranylcypromine [Parnate] 10 mg tablet 20 mg PO BID Qty: 120 5RF (DME) Cam Boot See Rx Instructions .Route .MEDSUPPLY Qty: 1 0RF Rx Instructions: As directed (DME) Left Turf Toe Liner See Rx Instructions .Route .MEDSUPPLY Qty: 1 0RF Rx Instructions: As directed baclofen 10 mg tablet 10 mg PO TID PRN (Reason: spasms) Qty: 90 11RF levalbuterol tartrate [Xopenex HFA] 45 mcg/actuation HFA aerosol inhaler 2 inh inhalation Q6H Qty: 15 3RF clopidogrel [Plavix] 75 mg tablet 75 mg PO QAM Qty: 90 12RF ipratropium-albuterol 0.5 mg-3 mg(2.5 mg base)/3 mL solution for nebulization 3 ml INHALATION TID PRN (Reason: Shortness Of Breath) Qty: 180 3RF montelukast 10 mg tablet See Rx Instructions .ROUTE .COMPLEX Qty: 90 3RF Dose Instruction: TAKE 1 TABLET BY MOUTH EVERY DAY Rx Instructions: TAKE 1 TABLET BY MOUTH EVERY DAY ranolazine 1,000 mg tablet extended release 12 hr 1,000 mg PO BID Qty: 180 3RF carvedilol 3.125 mg tablet See Rx Instructions .ROUTE .COMPLEX Qty: 180 3RF Dose Instruction: TAKE 1 TABLET BY MOUTH TWICE DAILY WITH FOOD Rx Instructions: TAKE 1 TABLET BY MOUTH TWICE DAILY WITH FOOD topiramate 50 mg tablet 50 mg PO BID 30 Days Qty: 60 0RF melatonin 10 mg Tablet 10 mg PO BEDTIME PRN (Reason: Sleep) Colace 100 mg capsule 200 mg PO BEDTIME PRN (Reason: Constipation) Fish Oil 300-1,000 mg Capsule 1 cap PO DAILY Discharge Orders: Discharge ED (Routine); Ordered 03/11/24 Ordered By: Skinny Rivers Referrals: Venancio Mota MD [Primary Care Provider] - Discharge Diet: Usual diet Discharge Activity: Increase activity as tolerated Patient Instructions: Pneumonia (ED) Activity Restrictions/Additional Instructions: Home and rest. Continue with nebulizer and respiratory treatments as directed. Drink plenty water and fluids with antibiotics. Follow-up with primary care in 3 days for recheck. Return to ED for worsening symptoms such as increasing shortness of breath, inability to hold fluids down, or new concerns. Coding Level of Care Code ED Senior Interaction Designer for Lillian Yang
[2024-03-11] MEDS: cefTRIAXone 1,000 MG in water for injection-sterile 2.1 ML 2.10000000000000009 MG IM (17:00)
[2024-03-11] MEDS: azithromycin 250 mg Tablet 500 MG PO (17:00)
[2024-03-11] MEDS: dexamethasone 10 mg/mL INJ IM (17:01)
[2024-03-11 17:12] VITALS: BP 108/64; PULSE 76; RESP 16; TEMP 36.6; O2SAT 95
== END 2024-03-11 17:13 | disposition home or self-care (01) ==
PROVIDERS: Emergency Provider Nurse Practitioner Family; PCP Family Medicine
DX: J44.0 Chronic obstructive pulmonary disease with (acute) lower respiratory infection (principal); J18.9 Pneumonia, unspecified organism; Z79.02 Long term (current) use of antithrombotics/antiplatelets; Z79.82 Long term (current) use of aspirin; I25.10 Atherosclerotic heart disease of native coronary artery without angina pectoris; I25.2 Old myocardial infarction; I10 Essential (primary) hypertension; Z95.1 Presence of aortocoronary bypass graft; Z87.891 Personal history of nicotine dependence
CPT/HCPCS: 71046; 96372; 99284; J0696; J1100; Q0144

== ENCOUNTER 2024-03-13 13:38 | Outpatient (CLI) | payer OTHER, SELFPAY ==
--- NOTE | 2024-03-13 13:41 | CT_ITS ---
WS: [id number] CT chest wo con [id number] HISTORY: J69.0 - Pneumonitis due to inhalation of food and vomit TECHNIQUE: Axial imaging performed through the thorax. Coronal and sagittal reformats are submitted. All CT scans at [facility] use at least one of these dose optimization techniques: automated exposure control; mA and/or kV adjustment per patient size (includes targeted exams where dose is mat ched to clinical indication); or iterative reconstruction. CONTRAST: None DLP: 382.32 mGy.cm COMPARISON: 08/26/2023 Lungs and central airway: Severe centrilobular emphysema with hyperexpanded lungs. Previously describ ed areas of opacification with groundglass attenuation and tree-in-bud airspace disease has progresse d. Some of the changes and opacifications have improved. There is been a significant progression of g roundglass attenuation and nodularity especially within the RIGHT lower lobe and the RIGHT middle lob e. No interval change in the indeterminate 4 mm nodule at the RIGHT apex. The groundglass opacificati on in the LEFT lower lobe measuring 1.9 x 2.7 cm is slightly increased in size. Pleura: Normal. No pleural effusion. Heart and pericardium: Prior CABG and median sternotomy. Very dense heavy calcification in the [place] coronary arteries. Mediastinum and vandana: No mediastinum or hilar adenopathy. Vessels: Moderate atherosclerosis aorta. Pulmonary artery is dilated to 3.5 cm. Chest wall and lower neck: Bilateral thyroid nodules. Largest nodule 12 mm lower pole LEFT thyroid. Upper abdomen: Small hiatal hernia. No adrenal mass. Heavy splenic artery calcification. Prior cholec ystectomy. Osseous structures: Osteopenia with increase in thoracic kyphosis. Prior RIGHT humeral head replaceme nt. IMPRESSION: 1. Moderate progression of tree-in-bud airspace disease and reticular nodular opacifications greates t in the RIGHT middle and RIGHT lower lobe since 08/26/2023. Some of the remaining groundglass opacifi cations have improved. 2. Previously described groundglass opacification in the LEFT lower lobe measures 1.9 x 2.7 cm is sl ightly increased in size since 08/26/2023. Continued imaging surveillance as low-grade neoplasm may ap pear similar. 3. Prior CABG. 4. No mediastinal or hilar adenopathy. 5. Pulmonary hypertension and advanced chronic emphysema.
== END 2024-03-13 13:39 | disposition home or self-care (01) ==
LOC: RAD 13:38
PROVIDERS: PCP Family Medicine; Visit Provider Internal Medicine Pulmonary Disease
DX: J43.9 Emphysema, unspecified (principal); I27.20 Pulmonary hypertension, unspecified; R91.8 Other nonspecific abnormal finding of lung field; Z95.1 Presence of aortocoronary bypass graft
CPT/HCPCS: 71250

== ENCOUNTER → 2024-03-18 10:52 | Outpatient (BNVA) | payer MEDICARE, SELFPAY | PROVIDERS: PCP Family Medicine; Visit Provider Anesthesiology Pain Medicine | DX: M19.011 Primary osteoarthritis, right shoulder; M19.012 Primary osteoarthritis, left shoulder; Z96.611 Presence of right artificial shoulder joint | CPT/HCPCS: 99214 ==

== ENCOUNTER → 2024-03-23 10:57 | Outpatient (BNVA) | payer MEDICARE, SELFPAY | PROVIDERS: PCP Family Medicine; Visit Provider Internal Medicine Pulmonary Disease | DX: R91.8 Other nonspecific abnormal finding of lung field (principal); J44.9 Chronic obstructive pulmonary disease, unspecified; I25.10 Atherosclerotic heart disease of native coronary artery without angina pectoris; Z87.891 Personal history of nicotine dependence | CPT/HCPCS: 99214 ==

== ENCOUNTER 2024-04-02 12:43 | Outpatient (CLI) | payer MEDICARE, SELFPAY | END 2024-04-02 12:44 | disposition home or self-care (01) | PROVIDERS: PCP Family Medicine; Visit Provider Internal Medicine Pulmonary Disease | DX: R91.8 Other nonspecific abnormal finding of lung field (principal) | CPT/HCPCS: 94060; 94618; 94726; 94729 ==

== ENCOUNTER 2024-04-02 14:17 | Emergency (ER) | payer MEDICARE, MEDICAID, SELFPAY ==
[2024-04-02 14:32] VITALS: BP 120/69; PULSE 70; TEMP 36.8; O2SAT 96; BMI 26.1
--- NOTE | 2024-04-02 14:46 | CTR_ITS ---
PROCEDURE INFORMATION: Exam: CT Cervical Spine Without Contrast Exam date and time: 04/02/2024 3:27 PM Age: 68 years old Clinical indication: Injury or trauma; Fall; Blunt trauma TECHNIQUE: Imaging protocol: Computed tomography of the cervical spine without contrast. Radiation optimization: All CT scans at this facility use at least one of these dose optimization techniques: automated exposure control; mA and/or kV adjustment per patient size (includes targeted exams where dose is matched to clinical indication); or iterative reconstruction. COMPARISON: CR XR cervical spine fl/ex [id number] 08/25/2018 2:28 PM RADIATION DOSE METRICS: Total DLP (mGy-cm): 184 FINDINGS: Bones: Mild retrolisthesis C3-C4. Mild anterolisthesis C7-T1. No fracture. Diffuse degenerative disc disease and facet arthropathy. Lungs: Lung apices are normal. Thyroid: 1.8 cm rounded low-density lesion in the left lobe of the thyroid gland. Soft tissues: Unremarkable. CT/CT cervical spin wo con* [id number] IMPRESSION: 1. 1.8 cm rounded low-density lesion in the left lobe of the thyroid gland. Dedicated nonurgent thyroid ultrasound recommended if this has not been previously evaluated. 2. No acute bony abnormality.
--- NOTE | 2024-04-02 14:46 | XRR_ITS ---
PROCEDURE INFORMATION: Exam: XR Left Foot Exam date and time: 04/02/2024 3:35 PM Age: 68 years old Clinical indication: Injury or trauma; Fall; Blunt trauma; Foot; Left TECHNIQUE: Imaging protocol: Radiologic exam of the left foot. Views: 3 or more views. COMPARISON: CR XR foot LT min 3V* [id number] 11/28/2023 10:31 AM FINDINGS: Bones/joints: Bones are under mineralized. Stable deformity distal head 1st metatarsal and 5th metatarsal believed postsurgical in nature. Incompletely healed intra-articular fracture base of the 1st proximal phalanx 3 demonstrated. No acute fractures appreciated. Moderate degenerative changes at the talonavicular joint that may have progressed from previous exam. Soft tissues: Normal. XR/XR foot LT min 3V* [id number] IMPRESSION: No acute bony abnormalities.
--- NOTE | 2024-04-02 14:46 | CTR_ITS ---
PROCEDURE INFORMATION: Exam: CT Head Without Contrast Exam date and time: 04/02/2024 3:24 PM Age: 68 years old Clinical indication: Injury or trauma; Fall; Blunt trauma (contusions or hematomas) TECHNIQUE: Imaging protocol: Computed tomography of the head without contrast. Radiation optimization: All CT scans at this facility use at least one of these dose optimization techniques: automated exposure control; mA and/or kV adjustment per patient size (includes targeted exams where dose is matched to clinical indication); or iterative reconstruction. COMPARISON: CT head wo con* [id number] 01/30/2022 12:49 PM RADIATION DOSE METRICS: Total DLP (mGy-cm): 1105 FINDINGS: Brain: No intracranial hemorrhage. There is global parenchymal volume loss. Periventricular white matter hypoattenuation is nonspecific but most likely due to small vessel disease. No evidence of acute territorial infarct or cerebral edema. No mass effect or midline shift. Cerebral ventricles: Prominent ventricles likely secondary to volume loss. Paranasal sinuses: Visualized sinuses are unremarkable. No fluid levels. Mastoid air cells: Visualized mastoid air cells are well aerated. Bones: Unremarkable. No acute fracture. Soft tissues: Unremarkable. CT/CT head wo con* [id number] IMPRESSION: No acute intracranial findings.
[2024-04-02 16:37] VITALS: BP 104/88; PULSE 60; RESP 17; O2SAT 97
--- NOTE | 2024-04-02 17:21 | ED_ITS ---
HPI - Fall General: Chief Complaint: Fall Stated Complaint: fall Time Seen by Provider: 04/02/24 17:21 History of Present Illness: 68-year-old female comes in today for co mplaints of headache status post injury from Saturday. Patient reports a trip and fall injuring her left foot and hitting her head. Patient reports since then she has had persistent headache. Patient does take a blood thinning medication that she is concerned that she may have a bleed on the brain. Patient appears nontoxic. Patient moves all extremities well. Patient does have some light bruising to the dorsal left foot. 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 Status post reverse total arthroplasty of right shoulder Status post laparoscopic cholecystectomy 01/01/2020 S/P right hemicolectomy 01/01/2020 H/O cardiac catheterization Status post colonoscopy S/p bilateral carpal tunnel release H/O rotator cuff surgery History of right shoulder replacement S/P CABG x 4 Hx of appendectomy Family History Daughter Diabetes Sister Diabetes x3 Brother Diabetes Son Hypertension Family/Other Thyroid disease granddaughter Mother Heart disease Denies family history of Colon cancer Ovarian cancer Clotting disorder Hyperlipidemia Breast cancer Anesthesia complication Bleeding disorder Uterine cancer Stroke Social History Smoking and tobacco/nicotine status: former use of tobacco/nicotine (quit smoking 12/2021 ) Quit status (tobacco/nicotine): has quit using Year quit tobacco: 12/2021 Former quit date comment: 2 ppd X 30 years Second hand smoke exposure: No Alcohol intake: never Substance/Drug Use: never Current occupational status: retired Physical Exam Const: COMMON NORMALS: alert HENMT: COMMON NORMALS: normocephalic HEAD & SCALP: normocephalic Neck/C-Spine: COMMON NORMALS: full ROM Resp: COMMON NORMALS: normal respiratory effort and clear to auscultation bilaterally AUSCULTATION: clear to auscultation bilaterally Cardio: COMMON NORMALS: regular rate RATE: regular rate GI: COMMON NORMALS: non-tender Back/Pelvis: COMMON NORMALS: thoracic and lumbar spine normal to inspection Extremity: LEFT LOWER EXTREMITY: Yes foot & digits (Dorsal foot bruising) Neuro: SENSORIUM/ORIENTATION: Yes alert Skin: COMMON NORMALS: turgor normal GENERAL SKIN EXAM: turgor normal Course Vital Signs: Vital signs: Vital Signs Temperature 98.3 F 04/02/24 14:32 Pulse Rate 60 04/02/24 16:37 Respiratory Rate 17 04/02/24 16:37 Blood Pressure 104/88 04/02/24 16:37 Pulse Oximetry 97 04/02/24 16:37 Oxygen Delivery Me thod Room Air 04/02/24 14:32 MDM - Fall Medical Decision Making 68-year-old female comes in today for complaints of injury to the left foot and a head injury. Incident occurred on Saturday. Patient comes in due to persistent headache since the fall. On exam patient has no scalp palpable tenderness. Left foot has some dorsal bruising. Patient does complain of her left ear and requested evaluation. Mild redness is noted to the ear canal without any significant drainage. Bilateral TMs are normal. Differential diagnosis includes but not limited to intracranial bleed, skull fracture, cervical neck fracture, fracture of the foot. CT of the head and cervical spine were negative for fracture or intracranial bleeding. X-ray of the foot noted no fracture. Reviewed exam with patient with recommendations for treatment of head injury and foot injury. Patient was also prescribed some Cortisporin eardrops for her ear complaints. Patient had a recent cleaning of her ears and has had persistent pain since then most likely patient does have some mild dermatitis in the ear canal and I believe the steroid will probably help in the drops. Patient is agreeable to plan and need for follow-up or return to the ER. Lab Data Radiology Impressions Cervical Spine CT 04/02/24 14:46 IMPRESSION: 1. 1.8 cm rounded low-density lesion in the left lobe of the thyroid gland. Dedicated nonurgent thyroid ultrasound recommended if this has not been previously evaluated. 2. No acute bony abnormality. Foot X-Ray 04/02/24 14:46 IMPRESSION: No acute bony abnormalities. Head CT 04/02/24 14:46 IMPRESSION: No acute intracranial findings. All radiology interpretation(s) finalized by discharge Discharge Plan Discharge Patient Disposition: Home Clinical Impression: Other otitis externa, left ear Head injury Qualifiers: Encounter type: initial encounter Qualified Code(s): S09.90XA - Unspecified injury of head, initial encounter Condition: Stable Prescriptions: New zazaqpay-hghplozww-UY 3.5-10,000-1 mg/mL-unit/mL-% drops,suspension 4 drp otic (ear) Q8H 5 Days Qty: 10 0RF Rx Instructions: left ear No Action multivitamin [Daily Multi-Vitamin] Tablet 1 tab PO QAM magnesium 250 mg tablet 250 mg PO QAM cholecalciferol (vitamin D3) 50 mcg (2,000 unit) tablet 2,000 unit PO QAM ascorbate calcium (vitamin C) 500 mg tablet 500 mg PO QAM aspirin [Adult Aspirin Regimen] 81 mg tablet,delayed release (DR/EC) 81 mg PO QAM nitroglycerin 0.4 mg tablet, sublingual 0.4 mg sublingual Q5M PRN (Reason: chest pain) Qty: 60 3RF Rx Instructions: do not exceed 3 doses per episode fluticasone propion-salmeterol [Wixela Inhub] 500-50 mcg/dose blister with device 1 inh inhalation BID Qty: 180 3RF lovastatin 20 mg tablet 20 mg PO BEDTIME Qty: 90 3RF (DME) right ankle brace See Rx Instructions .Route .MEDSUPPLY Qty: 1 0RF Rx Instructions: As directed alprazolam [Xanax] 1 mg tablet 1 mg PO TID Qty: 90 5RF tranylcypromine [Parnate] 10 mg tablet 20 mg PO BID Qty: 120 11RF omeprazole 20 mg capsule,delayed release(DR/EC) 20 mg PO BID Qty: 180 3RF (DME) Cam Boot See Rx Instructions .Route .MEDSUPPLY Qty: 1 0RF Rx Instructions: As directed (DME) Left Turf Toe Liner See Rx Instructions .Route .MEDSUPPLY Qty: 1 0RF Rx Instructions: As directed baclofen 10 mg tablet 10 mg PO TID PRN (Reason: spasms) Qty: 90 11RF clopidogrel [Plavix] 75 mg tablet 75 mg PO QAM Qty: 90 12RF ipratropium-albuterol 0.5 mg-3 mg(2.5 mg base)/3 mL solution for nebulization 3 ml INHALATION TID PRN (Reason: Shortness Of Breath) Qty: 180 3RF ranolazine 1,000 mg tablet extended release 12 hr 1,000 mg PO BID Qty: 180 3RF topiramate 50 mg tablet 50 mg PO BID 30 Days Qty: 60 0RF melatonin 10 mg Tablet 10 mg PO BEDTIME PRN (Reason: Sleep) Colace 100 mg capsule 200 mg PO BEDTIME PRN (Reason: Constipation) omega 5-ekk-avu-fish oil [Fish Oil] 300-1,000 mg Capsule 1 cap PO DAILY carvedilol 3.125 mg tablet 3.125 mg PO BID Rx Instructions: TAKE 1 TABLET BY MOUTH TWICE DAILY WITH FOOD montelukast 10 mg tablet 10 mg PO BEDTIME Rx Instructions: TAKE 1 TABLET BY MOUTH EVERY DAY fluticasone propionate 50 mcg/actuation spray,suspension 2 spray intranasal BID Rx Instructions: SHAKE LIQUID AND USE 2 SPRAYS IN EACH NOSTRIL TWICE DAILY Xopenex HFA 45 mcg/actuation HFA aerosol inhaler 2 inh inhalation Q6H PRN (Reason: Shortness Of Breath) Tylenol Arthritis 650 mg Tablet Extended Release 1,300 mg PO Q8H PRN (Reason: Pain) Discharge Orders: Discharge ED (Routine); Ordered 04/02/24 Ordered By: Skinny Rivers Referrals: Venancio Mota MD [Primary Care Provider] - Discharge Diet: Usual diet Discharge Activity: Increase activity as tolerated Patient Instructions: Head Injury (ED) Activity Restrictions/Additional Instructions: Use acetaminophen and drink plenty of fluids for control of headache secondary to mild concussion. Use eardrops as needed for discomfort for the next 5 days. Drink plenty of water. Follow-up with primary care. Return to ED for new concerns. Coding Level of Care Code ED Mortgage Loan Assistant for Lillian Yang
== END 2024-04-02 17:37 | disposition home or self-care (01) ==
PROVIDERS: Emergency Provider Nurse Practitioner Family; PCP Family Medicine
DX: S90.32XA Contusion of left foot, initial encounter (principal); H60.8X2 Other otitis externa, left ear; S09.90XA Unspecified injury of head, initial encounter; Z79.02 Long term (current) use of antithrombotics/antiplatelets; Z79.82 Long term (current) use of aspirin; Z87.891 Personal history of nicotine dependence; Z95.1 Presence of aortocoronary bypass graft; I25.10 Atherosclerotic heart disease of native coronary artery without angina pectoris; I25.2 Old myocardial infarction; J44.9 Chronic obstructive pulmonary disease, unspecified; I10 Essential (primary) hypertension; W01.0XXA Fall on same level from slipping, tripping and stumbling without subsequent striking against object, initial encounter
CPT/HCPCS: 70450; 72125; 73630; 99284

== ENCOUNTER 2024-04-07 07:57 | Day surgery (SDC) | payer MEDICARE, SELFPAY ==
[2024-04-07] VITALS (11 sets, daily range): BP systolic 95–119; BP diastolic 55–78; PULSE 62–74; RESP 16–20; TEMP 36.4–36.7; O2SAT 90–97
--- NOTE | 2024-04-07 08:32 | W.PM.OPSUD ---
Surgery/Procedure H&P Update DATE OF PROCEDURE: April 07, 2024 DATE H&P PERFORMED: 03/23/24 H&P UPDATE INFORMATION: I have reviewed H&P completed within last 30 days, I have examined patient prior to procedure and No changes to prior documentation CHANGES TO PREVIOUS DOCUMENTATION: none PREOP DIAGNOSIS: suspected low grade malignancy PRIMARY INDICATION FOR PROCEDURE: chest CT -03/13/2024 previously described groundglass opacification in the LEFT lower lobe measures 1.9 x 2.7 cm is slightly increased in size since 08/26/2023. There is concern for low-grade neoplasm PLANNED PROCEDURE: Operation Date: 04/07/24 09:00 Proposed Procedures p Ion Robotic Assisted Bronchoscopy [id number], [id number], [id number], 70192, 54219, R91.8(Not Applicable) - Zain Shell MD s Ebus(Not Applicable) - Zain Shell MD
[2024-04-07] MEDS: sodium chloride 0.9% 1,000 ML 30 ML IV (08:35)
--- NOTE | 2024-04-07 09:20 | P.ANESASSM_ITS ---
Pre-Anesthetic Assessment Height/Weight: Height 1.73 m Weight 78.018 kg Temp Pulse Resp BP Pulse Ox O2 Del Method 97.6 F 74 18 119/74 97 Room Air 04/07/24 08:14 04/07/24 08:14 04/07/24 08:14 04/07/24 08:14 04/07/24 08:14 04/07/24 08:14 Preop Diagnosis: suspected low grade malignancy Operation Date: 04/07/24 09:00 Proposed Procedures p Ion Robotic Assisted Bronchoscopy [id number], [id number], [id number],[id number], 33362, 01619, R91.8(Not Applicable) - Zain Shell MD s Ebus(Not Applicable) - Zain Shell MD Was Beta Ama taken within 24 hours: N/A Was Clonidine taken within 24 hours: N/A Last intake: Intake Last Liquid Date 04/07/24 Last Liquid Time 06:00 Last Solid Date 04/06/24 Last Solid Time 18:00 Last Intake: 23:00 Social No alcohol and No tobacco Exam alert, oriented x 3, clear to auscultation bilaterally and regular rate & rhythm Airway Submandibular: within normal limits Mallampati: Class II Dentition: full History/ROS No significant history except as noted Pulmonary Chronic Obstructive Pulmonary Disease multiple pneumonias, not sob CV/HEM Hypertension and Myocardial Infarction AAA, yearly cardiology visits. None reported Hepatic None reported GI Gastroesophageal Reflux Disease mod/severe Metabolic None reported Musc/skel Osteoarthritis/DJD Neuropsych Anxiety, Depression and None reported Anesthetic Plan ASA status: 3 Anesthesia: General and MAC Risk of > 500 ml blood loss (7ml/kg in children): Yes, adequate IV access and fluids planned Medications/Allergies Home Medications Medication Instructions Recorded Confirmed Last Taken Type magnesium 250 mg tablet 250 mg PO QAM 12/08/19 04/02/24 04/06/24 History multivitamin (Daily Multi-Vitamin 1 tab PO QAM 12/08/19 04/02/24 04/06/24 History tablet) aspirin 81 mg tablet,delayed 81 mg PO QAM 08/30/20 04/02/24 04/06/24 History release (Adult Aspirin Regimen) cholecalciferol (vitamin D3) 50 2,000 unit PO QAM 06/01/21 04/02/24 04/06/24 History mcg (2,000 unit) tablet melatonin 10 mg tablet 10 mg PO BEDTIME PRN Sleep 01/09/22 04/02/24 04/06/24 History nitroglycerin 0.4 mg sublingual 0.4 mg sublingual Q5M PRN chest 01/16/22 04/02/24 04/06/24 Rx tablet pain #60 tabs docusate sodium 100 mg capsule 200 mg PO BEDTIME PRN Constipation 05/08/22 04/02/24 04/06/24 History (Colace) omega 5-cbr-vth-fish oil 300 1 cap PO DAILY 05/01/23 04/02/24 04/06/24 History mg-1,000 mg capsule (Fish Oil) ascorbate calcium (vitamin C) 500 500 mg PO QAM 05/24/23 04/02/24 04/06/24 History mg tablet lovastatin 20 mg tablet 20 mg PO BEDTIME #90 tabs 06/20/23 04/02/24 04/06/24 Rx fluticasone 500 mcg-salmeterol 50 1 inh inhalation BID #180 ea 06/21/23 04/02/24 04/06/24 Rx mcg/dose blistr powdr for inhalation (Wixela Inhub) clopidogrel 75 mg tablet (Plavix) 75 mg PO QAM #90 tabs 08/08/23 04/02/24 04/01/24 Rx ipratropium 0.5 mg-albuterol 3 mg 3 ml inhalation TID PRN Shortness 09/02/23 04/02/24 04/06/24 Rx (2.5 mg base)/3 mL nebulization Of Breath #180 mL soln Cam Boot #1 ea 10/11/23 03/27/24 04/06/24 Rx Left Turf Toe Liner #1 ea 10/11/23 03/27/24 04/06/24 Rx omeprazole 20 mg capsule,delayed 20 mg PO BID #180 caps 11/12/23 04/02/24 04/06/24 Rx release right ankle brace #1 ea 11/28/23 03/27/24 04/06/24 Rx ranolazine 1,000 mg 1,000 mg PO BID #180 tabs 12/18/23 04/02/24 04/06/24 Rx tablet,extended release,12 hr baclofen 10 mg tablet 10 mg PO TID PRN spasms #90 tabs 01/27/24 04/02/24 04/06/24 Rx alprazolam 1 mg tablet (Xanax) 1 mg PO TID #90 tabs 01/30/24 04/02/24 04/07/24 Rx topiramate 50 mg tablet 50 mg PO BID pain 30 days #60 tabs 02/24/24 04/02/24 04/06/24 Rx tranylcypromine 10 mg tablet 20 mg (2 x 10 mg) PO BID #120 tabs 03/27/24 04/02/24 04/06/24 Rx (Parnate) acetaminophen 650 mg 1,300 mg PO Q8H PRN Pain 04/02/24 04/02/24 04/07/24 History tablet,extended release carvedilol 3.125 mg tablet 3.125 mg PO BID 04/02/24 04/02/24 04/07/24 History fluticasone propionate 50 2 spray intranasal BID 04/02/24 04/02/24 04/06/24 History mcg/actuation nasal spray,suspension levalbuterol tartrate 45 2 inh inhalation Q6H PRN Shortness 04/02/24 04/02/24 04/06/24 History mcg/actuation aerosol inhaler Of Breath (Xopenex HFA) montelukast 10 mg tablet 10 mg PO BEDTIME 04/02/24 04/02/24 04/06/24 History Allergies Allergy/AdvReac Type Severity Reaction Status Date / Time pregabalin [From Lyrica] Allergy Severe dizziness Verified 04/02/24 14:38 codeine AdvReac Unknown Unknown Verified 04/02/24 14:38 gabapentin [From Neurontin] AdvReac Unknown dizziness Verified 04/02/24 14:38 oxycodone [From OxyContin] AdvReac Unknown Unknown Verified 04/02/24 14:38 Odlzdbj-TCP-EhZ Reductase AdvReac Unknown muscle Verified 04/02/24 14:38 Inhibitor aches [Wpitgny-Scu-Vso Reductase Inhibitor] tramadol AdvReac Unknown rash Verified 04/02/24 14:38 Current Medications Generic Name Dose Route Start Last Admin Trade Name Freq PRN Reason Stop Dose Admin Sodium Chloride 1,000 mls @ 30 mls/hr 04/07/24 08:15 04/07/24 08:35 Sodium Chloride 0.9% IV 04/08/24 08:14 30 mls/hr .Q24H ANTONIETTA Administration PFSH Anesthesia Medical History Psychiatric care 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 Status post reverse total arthroplasty of right shoulder Status post laparoscopic cholecystectomy 01/01/2020 S/P right hemicolectomy 01/01/2020 H/O cardiac catheterization Status post colonoscopy S/p bilateral carpal tunnel release H/O rotator cuff surgery History of right shoulder replacement S/P CABG x 4 Hx of appendectomy Family History Daughter Diabetes Sister Diabetes x3 Brother Diabetes Son Hypertension Family/Other Thyroid disease granddaughter Mother Heart disease Denies family history of Colon cancer Ovarian cancer Clotting disorder Hyperlipidemia Breast cancer Anesthesia complication Bleeding disorder Uterine cancer Stroke Social History Smoking and tobacco/nicotine status: former use of tobacco/nicotine (quit smoking 12/2021 ) Quit status (tobacco/nicotine): has quit using Year quit tobacco: 12/2021 Former quit date comment: 2 ppd X 30 years Second hand smoke exposure: No Alcohol intake: never Substance/Drug Use: never Current occupational status: retired Data Anesthesia Cardiac Studies: Echocardiogram 07/02/23 Echocardiogram Limited Views 09/10/22 Echocardiogram Ultrasound 01/04/20 Sestamibi Stress Test (Cardiology) 02/14 Cardiac Event Monitor 09/23/23
--- NOTE | 2024-04-07 09:49 | SC_ITS ---
WS: [id number] C-ARM RADIOGRAPHS BRONCHOSCOPY; 4 IMAGES HISTORY: ION COMPARISON: None available. Intraprocedural imaging during bronchoscopy. Scope projects over the LEFT mid to lower thorax. SC/C-arm FL for Bronchoscopy IMPRESSION: Intraoperative imaging during bronchoscopy.
--- NOTE | 2024-04-07 10:33 | XRR_ITS ---
PROCEDURE INFORMATION: Exam: XR Chest Exam date and time: 04/07/2024 11:15 AM Age: 68 years old Clinical indication: Device placement; Other: Post bronch; Additional info: Post ion, to be in pacu TECHNIQUE: Imaging protocol: Radiologic exam of the chest. Views: 1 view. COMPARISON: CT chest con [id number] 03/13/2024 1:54 PM FINDINGS: Lungs: Vague bilateral basilar opacities are nonspecific and may correlate with the CT findings. These are more prominent on the right. Pleural spaces: Unremarkable. No pleural effusion. No pneumothorax. Heart/Mediastinum: Prior CABG. No cardiomegaly. Bones/joints: There is a right shoulder prosthesis and sternal sutures. No acute findings. XR/XR chest 1V portable [id number] IMPRESSION: Vague bilateral basilar opacities are nonspecific and may correlate with the CT findings. These are more prominent on the right.
[2024-04-07] MEDS: lidocaine 1% INJ 10 mL (per mL) XX (10:35)
[2024-04-07 10:44] LABS: Cyto Order Verification No Order
--- NOTE | 2024-04-07 11:14 | P.OP_ITS ---
Operative Report Date of procedure: April 07, 2024 Pre-op diagnosis: Increasing groundglass opacity left lower lobe-suspicious for low-grade malignancy Post-op diagnosis: Same Procedure done: -Dx Bronchoscope w/Washings or airway inspection -Dx Bronchoscope w/BAL -Bronch with computer image guided Navigational Bronchoscopy -Bronchoscopy w/Transbronchial lung biopsy(s), single lobe using forceps -Bronchoscopy w/Transbronchial needle aspiration biopsy(s), tracheal, main stem, and/or lobar bronchus -Bronchoscopy w/ therapeutic aspiration of the tracheobronchial tree (clearance of airway secretions, removal of mucus plugs) Surgeon: Zain Shell MD Brief History: Ms. Malvin Fernandez is a 68 year old female with PMH of CAD s/p CABG, COPD, Hypercholesterolemia, Smoker, Anemia, initially referred by Dr. Mota for abnormal CT. 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 Pt is a former smoker with hx of 2ppd X 30 years, quit December of 2021. Patient has PFT 04/04/2023 which showed moderate moderate emphysema. She uses Wixela 500-50 BID, rarely uses Atrovent. Pt had CT Chest 02/13/23 which showed Numerous small subcentimeter nodules throughout both lungs but greatest throughout the RIGHT lung. Differential includes hematogenous metastatic disease, miliary TB or fungal infections. Less likely sarcoidosis with no mediastinal lymph nodes of significance. Some of these nodules are in a slight tree-in-bud airspace distributions suggesting endobronchial pneumonia. she did report previous history of several episodes of respiratory infections treated with several courses of antibiotics A 3-month follow-up CT chest 06/18/2023 which showed progressive bilateral subcentimeter pulmonary nodules worse in the right lung with areas of tree-in-bud nodularity. There are a few more prominent anterior mediastinal lymph nodes unchanged largest measuring 13 mm. At that time her sputum cultures are growing E. coli resistant to Levaquin as well as AFB cultures were negative for NTM. Patient received antibiotics Augmentin as well as levofloxacin. Another 3-month follow-up CT aug 2023: Moderate continued improvement in aeration throughout the RIGHT lung. Continued mild interstitial thickening and a few areas of tree-in-bud airspace disease.-Groundglass nodule in the LEFT lower lobe measures 16 x 23 mm. This nodule appears more prominent as compared to 06/18/2023. Low-grade neoplasm needs to be excluded. A follow-up chest CT in 6 months.-03/13/2024 previously described groundglass opacification in the LEFT lower lobe measures 1.9 x 2.7 cm is slightly increased in size since 08/26/2023. There is concern for low-grade neoplasm I have discussed with patient that given significant smoking history-the lesion in the lung is suspicious for low-grade malignancy and we need tissue diagnosis to confirm. For that I have given the option of going for robotic navigational guided biopsy of suspicious lesion as well as endobronchial ultrasound-guided surveillance of hilar/mediastinal lymph nodes. I have explained about the complications like pneumothorax given her significant background emphysema which may require chest tube placement. Bleeding is another possibility, majority of times the bleeding is controlled with instillation of cold saline or diluted epinephrine but extremely rarely to bleeding may not be well controlled, which may result in prolonged intubation and possibly bronchial mara placement to protect nonbleeding airway, convalescence in ICU, may even need IR embolization. There is also a very small chance of missing the lesion due to technical factors which may result in repeating the procedure. These are rare possibilities with current software combined with using live radial ultrasound,. Patient verbalized understanding for the indication of the procedure, nature of the procedure, alternatives, complications, benefits and agreed to proceed. He is scheduled for the robotic navigational bronchoscopy guided biopsies of left lower lobe groundglass opacity as well as endobronchial ultrasound surveillance of hilar/mediastinal lymph nodes. Procedure: -Dx Bronchoscope w/Washings or airway inspection -Dx Bronchoscope w/BAL -Bronch with computer image guided Navigational Bronchoscopy -Bronchoscopy w/Transbronchial lung biopsy(s), single lobe using forceps -Bronchoscopy w/Transbronchial needle aspiration biopsy(s), tracheal, main stem, and/or lobar bronchus -Bronchoscopy w/ therapeutic aspiration of the tracheobronchial tree (clearance of airway secretions, removal of mucus plugs) ION ROBOTIC BRONCHOSCOPY NOTE Pre-procedure Verification: Prior to the procedure, the patient's identity was verified by full name, date of and medical record number. The patient's identity was verified on all pertinent medical records. Also prior to the procedure, a History and Physical was performed, and patient medications, allergies and sensitivities were reviewed. The patient's tolerance of previous anesthesia was reviewed. The risks and benefits of the procedure and the sedation options and risks were discussed with the patient. All questions were answered and informed consent was obtained. Planning: Using the Planpoint planning software, this patient?s preoperative CT was loaded onto the system and then target and pathway mapping was performed. This was all done prior to the start of the procedure and appropriate plan verified prior to induction. Anesthesia: General anesthesia was used. Please see anesthesiology documentation for full details. A modified LNVP/[place] Protocol was used for robotic bronchoscopy with rapid Intubation, recruitment maneuvers, Tidal Volume around 8-10mL/Kg [place] Body Weight, and PEEP 10-15 as feasible. Time-Out: Prior to the start of the procedure, the patient's identification, proposed procedure, accurate signed consent, correctly labeled images and records, and need for prophylactic antibiotics were verified by the physician, the nurse, the anesthesiologist and the corrugated sheet material sheeter in the procedure room. Procedural Details: After obtaining informed consent, The procedure was accomplished without difficulty. The patient tolerated the procedure well. Patient preparation: Patient was placed under general anesthesia. An 8.5 ETT was placed for bronchoscopy. The larynx and vocal cords were not visualized. The trachea was anatomically normal The right sided was anatomically normal without endobronchial lesions. There were significant thin clear secretions. The left sided airway was anatomically normal without endobronchial lesions. There were significant thin clear secretions Therapeutic aspiration of the airways, initial encounter, was performed at the right bronchial tree. The therapeutic bronchoscope was then removed. We communicated with the anesthesia team to ensure proper ventilator settings for optimal peripheral bronchoscopy. FIRST LOBE: The Ion Shape Sensing Robotic Assisted Bronchoscope was brought into the field and the process of registration was carried out. The guide catheter was used for peripheral navigational bronchoscopy using the planned pathway into the medial basal segment of left lower lobe and was able to be wedged peripherally at a distance of 1 mm away from the target. We locked the catheter position in, and removed the vision probe. We introduced the radial EBUS probe and obtained an radial vague concentric signal [id number] image location relative to the lesion in the same lobe. We confirmed our location with a fluoroscopic C-arm. We then removed the R-EBUS and introduced the biopsy tools starting with a 21 G ION bronchoscopic peripheral needle for Transbronchial Needle Aspirations (TBNA). The first pass was not sent for Rapid On Site Evaluation (ALO) as we do not have onsite pathology. We continued more biopsies in a cloud format. Transbronchial biopsies of left lower lobe lesion were using forceps. Transbronchial biopsy technique was selected because the sampling site was not visible endoscopically. The sampling device penetrated the full thickness of the bronchial wall to obtain the biopsy of lung tissue. 7 biopsy passes were performed, and the same number of biopsy samples were obtained. Finally, we used a 20 cc syringe filled with normal saline connected to the proximal portion of the ION catheter and slowly injected; pain 15 cc and aspirated the contents for a bronchial alveolar lavage of the medial basal segment of left lower lobe. The return was cloudy and blood tinged 13 cc . At this point and after confirming the absence of bleeding, we removed the channel. Minimal blood residue was cleared from the airway and the peripheral navigation portion of the procedure was concluded. Empiric cold saline was instilled through the catheter and tamponade held for 1-5 minutes. Next, we turned our attention to linear EBUS staging. No significant lymph nodes were identified in the hilar/mediastinal area. Samples: A. Left lower lobe groundglass lesion 1. Total of 6 passes were made using needle aspiration ; we do not have onsite pathology and so all the material was placed in formalin for histopathology 2. Targeting the same area 6 passes were made using forceps ; we do not have onsite pathology and so all the material was placed in formalin for histopathology 3. Bronchoscope was wedged at the entrance of the medial basal segment of left lower lobe, 20 mL of saline was instilled and returned 13 mL of bronchoalveolar lavage . The fluid was mixed with blood and specks of tissue. Samples for cell count, cytology, cultures Complications: None.The patient was extubated and brought to the PACU in stable condition. Disposition: Patient can be discharged home in stable condition. Pt is aware that I am going to call her to update final biopsy results once available.
[2024-04-07 11:25] LABS: Apprearance, Bronch Wash Bloody (CLEAR); Color, Bronc Wash Red
--- NOTE | 2024-04-07 12:10 | ANE.PACU2 ---
Inpatient post-anesthesia follow up: Airway intact: Yes Vital signs: Temperature 98.1 F Pulse Rate 62 Respiratory Rate 18 Blood Pressure 108/61 Pulse Oximetry 92 Oxygen Delivery Me thod Room Air Oxygen Flow Rate Fraction of Inspir ed Oxygen Hydration adequate: Yes Nausea and vomiting: No Pain level: 1 Mental status: Baseline
[2024-04-07 13:54] LABS: PATH Referral Yes; Total Cells Counted Bronch 200
== END 2024-04-07 12:12 | disposition home or self-care (01) ==
PROVIDERS: PCP Family Medicine; Visit Provider Internal Medicine Pulmonary Disease
PROC: 0BJ08ZZ Inspection of Tracheobronchial Tree, Via Natural or Artificial Opening Endoscopic (ICD-10-PCS; CPT 31622; principal; 2024-04-07 09:00)
PROC: BB4BZZZ Ultrasonography of Pleura (ICD-10-PCS; 2024-04-07 09:00)
DX: R93.89 Abnormal findings on diagnostic imaging of other specified body structures (principal); I25.10 Atherosclerotic heart disease of native coronary artery without angina pectoris; Z95.1 Presence of aortocoronary bypass graft; D64.9 Anemia, unspecified; Z87.891 Personal history of nicotine dependence; J44.9 Chronic obstructive pulmonary disease, unspecified; I10 Essential (primary) hypertension; I25.2 Old myocardial infarction; Z79.82 Long term (current) use of aspirin
CPT/HCPCS: 31624; 31627; 31628; 31629; 31645; 71045; 76000; 80503; 87070; 87077; 87186; 87205; 88305; 89050; J1100; J2371; J2405; J2704; J2710; J3010; J3490; J7030

== ENCOUNTER → 2024-04-14 13:48 | Outpatient (BNVA) | payer MEDICARE, SELFPAY | PROVIDERS: PCP Family Medicine; Visit Provider Anesthesiology Pain Medicine | DX: M19.011 Primary osteoarthritis, right shoulder (principal) | CPT/HCPCS: 64640; 77002; J1010 ==

== ENCOUNTER → 2024-04-21 12:50 | Outpatient (BNVA) | payer MEDICARE, SELFPAY | PROVIDERS: PCP Family Medicine; Visit Provider Internal Medicine Pulmonary Disease | DX: R91.8 Other nonspecific abnormal finding of lung field (principal); J44.9 Chronic obstructive pulmonary disease, unspecified; I25.10 Atherosclerotic heart disease of native coronary artery without angina pectoris; B37.0 Candidal stomatitis; Z87.891 Personal history of nicotine dependence | CPT/HCPCS: 99214 ==

== ENCOUNTER → 2024-04-24 07:49 | Outpatient (BNVA) | payer MEDICARE, SELFPAY | PROVIDERS: PCP Family Medicine; Visit Provider Family Medicine | DX: F33.40 Major depressive disorder, recurrent, in remission, unspecified (principal); E78.00 Pure hypercholesterolemia, unspecified; I10 Essential (primary) hypertension; I25.10 Atherosclerotic heart disease of native coronary artery without angina pectoris; D64.9 Anemia, unspecified | CPT/HCPCS: 80053; 80061; 85025 ==

== ENCOUNTER 2024-04-29 11:54 | Outpatient (CLI) | payer MEDICARE, SELFPAY ==
--- NOTE | 2024-04-29 12:35 | XRR_ITS ---
PROCEDURE INFORMATION: Exam: XR Left Shoulder Exam date and time: 04/29/2024 12:39 PM Age: 69 years old Clinical indication: Injury or trauma; Fall; Blunt trauma (contusions or hematomas); Shoulder; Left; Additional info: Left shoulder pain TECHNIQUE: Imaging protocol: Radiologic exam of the left shoulder. Views: 2 or more views. COMPARISON: CR XR chest 1V portable [id number] 04/07/2024 11:15 AM FINDINGS: Bones/joints: No acute fracture or dislocation. Marginal osteophytosis of the humeral head. Mild glenohumeral joint space narrowing. Soft tissues: Normal. XR/XR shoulder LT min 2V* [id number] IMPRESSION: No acute fracture or dislocation.
== END 2024-04-29 11:55 | disposition home or self-care (01) ==
LOC: RAD 11:55
PROVIDERS: PCP Family Medicine; Visit Provider Family Medicine
DX: M25.512 Pain in left shoulder (principal)
CPT/HCPCS: 73030

== ENCOUNTER → 2024-05-04 11:11 | Outpatient (BNVA) | payer MEDICARE, SELFPAY | PROVIDERS: PCP Family Medicine; Visit Provider Family Medicine | DX: J18.9 Pneumonia, unspecified organism (principal) | CPT/HCPCS: 87070; 87077; 87184; 87205 ==

== ENCOUNTER 2024-05-18 11:28 | Outpatient (RCR) | payer MEDICARE, SELFPAY | END 2024-05-31 23:59 | disposition home or self-care (01) | LOC: SPT 11:28 | PROVIDERS: Visit Provider Family Medicine | DX: M48.061 Spinal stenosis, lumbar region without neurogenic claudication (principal) | CPT/HCPCS: 97110; 97161 ==

== ENCOUNTER → 2024-05-29 13:12 | Outpatient (BNVA) | payer MEDICARE, SELFPAY | PROVIDERS: PCP Family Medicine; Visit Provider Clinical Nurse Specialist Adult Health | DX: J22 Unspecified acute lower respiratory infection (principal) | CPT/HCPCS: 87070; 87077; 87184; 87205 ==

== ENCOUNTER 2024-06-01 06:00 | Outpatient (RCR) | payer MEDICARE, SELFPAY | END 2024-07-01 23:59 | disposition home or self-care (01) | LOC: SPT 06:00 | PROVIDERS: PCP Family Medicine; Visit Provider Family Medicine | DX: M48.061 Spinal stenosis, lumbar region without neurogenic claudication (principal) | CPT/HCPCS: 97110 ==

== ENCOUNTER 2024-06-03 14:44 | Outpatient (CLI) | payer MEDICARE, SELFPAY ==
--- NOTE | 2024-06-03 15:00 | XR_ITS ---
WS: [id number] SCREENING DEXA SCAN [place] CLINICAL INFORMATION: Z78.0 - Asymptomatic menopausal state COMPARISON: 2018 FINDINGS: The L1-L4 bone mineral density measures 1.096 g/cm2. This corresponds to a T score score of -0.7 and Z score of 0.4. Left femoral neck bone mineral density measures 0.833 g/cm2. This corresponds to a T score of -1.4 an d Z score of -0.3. Right femoral neck bone mineral density measures 0.913 g/cm2. This corresponds to a T score -0.8of an d Z score of 0.3. Mean femoral neck bone mineral density measures 0.873 g/cm2. This corresponds to a T score of -1.1 an d Z score of 0.0. XR/XR DEXA axial skeleton* [id number] IMPRESSION: Normal bone mineralization lumbar spine. Osteopenia femoral necks. Patient's FRAX calculated 10 year probability for major osteoporotic fracture i s 13.7% and osteoporotic hip fracture is 1.3%. Bone mineral density lumbar spine decreased -2.7% Bone mineral density femoral necks decreased -12.6%
== END 2024-06-03 14:45 | disposition home or self-care (01) ==
LOC: RAD 14:46
PROVIDERS: PCP Family Medicine; Visit Provider Nurse Practitioner Women's Health
DX: Z78.0 Asymptomatic menopausal state (principal); M85.862 Other specified disorders of bone density and structure, left lower leg; M85.861 Other specified disorders of bone density and structure, right lower leg
CPT/HCPCS: 77080

== ENCOUNTER 2024-07-02 15:27 | Outpatient (RCR) | payer MEDICARE, SELFPAY | END 2024-08-01 23:59 | disposition home or self-care (01) | LOC: SPT 15:27 | PROVIDERS: PCP Family Medicine; Visit Provider Family Medicine | DX: M54.50 Low back pain, unspecified (principal); M40.04 Postural kyphosis, thoracic region | CPT/HCPCS: 97110 ==

== ENCOUNTER 2024-07-03 11:31 | Inpatient (IN) | payer MEDICARE, MEDICAID, SELFPAY ==
[2024-07-03] VITALS (11 sets, daily range): BP systolic 96–122; BP diastolic 56–71; PULSE 71–93; RESP 14–24; TEMP 36.5–36.9; O2SAT 90–96; BMI 26.4; BMI 27.5
--- NOTE | 2024-07-03 11:36 | XR_ITS ---
WS: [id number] Portable AP upright chest, 07/03/2024 Clinical Data: Shortness of breath Comparison: Portable chest, 04/07/2024 Findings: Right lung opacities have increased. There is still a minimal patchy left lower lobe opacit y. No pneumonia, mass or effusion is seen. The heart is normal. The aortic arch and descending thorac ic aorta show mild tortuosity calcification. Midline sternotomy sutures are present. There is a right shoulder arthroplasty. XR/XR chest 1V portable [id number] Impression: 1. Increase in right lung opacity which could represent worsening pneumonia. 2. No change in minimal left lower lobe opacity. 3. Atherosclerosis.
--- NOTE | 2024-07-03 11:36 | ECG_ITS ---
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 Measurements Intervals [place] Rate: 92 P: 69 WI: 195 QRS: 62 QRSD: 97 T: 75 QT: 367 QTc: 455 Interpretive Statements SINUS RHYTHM WITH OCCASIONAL VENTRICULAR PREMATURE COMPLEXES POSSIBLE LEFT ATRIAL ENLARGEMENT [-0.1mV P-WAVE IN V1/V2] MODERATE ST DEPRESSION [0.05+ mV ST DEPRESSION] Compared to ECG 04/30/2023 18:37:41 Ventricular premature complex(es) now present ST (T wave) deviation now present Electronically Signed On 07-03-2024 17:34:27 CDT by Jaiden Feliciano M.D. [id number]
--- NOTE | 2024-07-03 11:49 | ED_ITS ---
HPI - Fall 2 General: Chief Complaint: Fall Stated Complaint: fall,sob Time Seen by Provider: 07/03/24 11:31 History of Present Illness: 69-year-old female with history of anxie ty coronary artery disease, COPD, hyperlipidemia and hypertension who presents to the emergency room with right- sided chest pain, cough and shortness of breath that been worsening for 5 or 6 days now. She called the ambulance because she had become weak and slid out of her recliner. No head injury. No loss of consciousness. No extremity injuries. She has had multiple episodes of pneumonia in the past few months. Her daughter had told EMS by phone when they were at her home that she is still vaping. The patient says she has not vaped to me in over a year. She told EMS that had been 3 months. No altered mental status. No focal motor deficits. No abdominal pain. No nausea or vomiting. She describes a pleuritic right-sided chest pain. No known fevers. Worsening cough. Review of Systems 2 Narrative: Constitutional symptoms: Negative except as documented in HPI. Skin symptoms: Negative except as documented in HPI. Eye symptoms: Negative except as documented in HPI. ENMT symptoms: Negative except as documented in HPI. Respiratory symptoms: Negative except as documented in HPI. Cardiovascular symptoms: Negative except as documented in HPI. Gastrointestinal symptoms: Negative except as documented in HPI. Genitourinary symptoms: Negative except as documented in HPI. Musculoskeletal symptoms: Negative except as documented in HPI. Neurologic symptoms: Negative except as documented in HPI. Psychiatric symptoms: Negative except as documented in HPI. Endocrine symptoms: Negative except as documented in HPI. 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 Status post reverse total arthroplasty of right shoulder Status post laparoscopic cholecystectomy 01/01/2020 S/P right hemicolectomy 01/01/2020 H/O cardiac catheterization Status post colonoscopy S/p bilateral carpal tunnel release H/O rotator cuff surgery History of right shoulder replacement S/P CABG x 4 Hx of appendectomy Family History Daughter Diabetes Sister Diabetes x3 Brother Diabetes Son Hypertension Family/Other Thyroid disease granddaughter Mother Heart disease Denies family history of Colon cancer Ovarian cancer Clotting disorder Hyperlipidemia Breast cancer Anesthesia complication Bleeding disorder Uterine cancer Stroke Social History Smoking and tobacco/nicotine status: former use of tobacco/nicotine Physical Exam 2 Narrative: EXAM NARRATIVE: General: Alert, no acute distress. Skin: Warm, dry. Head: Normocephalic, atraumatic. Neck: Supple, trachea midline. Eye: Extraocular movements are intact. Ears, nose, mouth and throat: Oral mucosa moist. Cardiovascular: Regular rate and rhythm, Normal peripheral perfusion. Respiratory: some expiratory wheeze, mild increased wob, breath sounds are equal, Symmetrical chest wall expansion. Gastrointestinal: Soft, Nontender, Non distended, Normal bowel sounds. Musculoskeletal: Normal ROM, no deformity. Neurological: Alert and oriented to person, place, time, and situation, No focal neurological deficit observed. Psychiatric: Cooperative, appropriate mood & affect. Course 2 Vital Signs: Vital signs: Vital Signs Temperature 98.4 F 07/03/24 11:32 Pulse Rate 80 07/03/24 17:13 Respiratory Rate 14 07/03/24 17:13 Blood Pressure 103/61 07/03/24 17:13 Pulse Oximetry 92 07/03/24 17:13 Oxygen Delivery Me thod Nasal Cannula 07/03/24 17:13 Oxygen Flow Rate 2 07/03/24 17:13 MDM - Fall Medical Decision Making Differential diagnosis for patient with shortness of breath includes but is not limited to and based on the above HPI, review of systems and physical exam: Pneumonia. Bronchitis. Asthma or COPD with acute exacerbation. Acute coronary syndrome / [place]. Pulmonary embolism. Anxiety. Congestive heart failure. Viral infections including influenza and Covid-19. Atrial fibrillation. Anxiety. Pleural effusion. Pneumothorax. Workup: Lab work, chest X-ray and EKG ordered to evaluate, rule in and rule out above pathologies EKG: Time 1137. Rate 92. Normal sinus rhythm, PVCs, some mild ST depression diffusely. normal PA & QRS intervals, This was reviewed and interpreted by myself the ER physician Lab Review: Laboratory results were reviewed and interpreted by myself the emergency room physician. Patient has significant leukocytosis over her baseline with a white count of 17,000. Hemoglobin is stable 11.5. BUN and creatinine are normal at 9 and 0.8. Lactate is normal and Pro-Rene is normal. However CRP is very elevated at 171. Chest x-ray: Increasing right lung opacity which could represent worsening pneumonia. No change in left lobe opacity. This was reviewed and interpreted by myself the emergency room physician. I also reviewed the radiology report. CT of the chest with PE protocol: No PE. Increase in opacities in the right upper lobe right middle lobe lingula and left lower lobe. This was reviewed and interpreted by myself the emergency room physician. I also reviewed the radiology report. I reviewed the patient's medical record. Previous sputum cultures show recurrent pseudomonal infections that is always been sensitive to Levaquin. She has been treated with Levaquin multiple times. Reexamination: Patient remained stable. Her work of breathing seems to be better now that she is in bed. Blood pressure has come up slightly after fluids. Updraft helped mild wheezing. Consultation: I spoke with Dr. Hernandez with the hospitalist group. He feels the patient needs pulmonary consultation and possible bronchoscopy. We do not currently have pulmonary coverage here and will not for over a week. He recommends transfer. Consultation: I spoke with Dr. Mcdaniel who is pulmonology at [facility] in [place]. He reviewed films. He feels like she does not need transfer for an acute bronchoscopy and this should be done as an outpatient once she has improved some. Consultation: I spoke with Dr. Hernandez and discussed recommendation of Dr. Mcdaniel and he has agreed to admission Assessment and plan: Pseudomonal pneumonia Failed outpatient therapy COPD with acute exacerbation -1 L normal saline bolus was ordered. Her proBNP is up some so not giving more fluids. -I treated her empirically with meropenem and Zyvox. -IV Solu-Medrol and updrafts were given. ?Patient being admitted to the floor for continued IV antibiotics - Discussed findings and plan with patient. Answered any questions. - All laboratory values were reviewed and interpreted personally by myself, the ER physician - All imaging was reviewed and interpreted personally by myself, the ER physician. - Evaluation and treatment of this problem were appropriate in the emergency setting -I spent a total of >35 minutes of critical care time managing the patient, independent of any other practitioner. -The time involved in the performance of separately reportable procedures was not counted towards critical care time. Lab Data 07/03/24 12:02 07/03/24 12:02 Radiology Impressions Chest X-Ray 07/03/24 11:36 Impression: 1. Increase in right lung opacity which could represent worsening pneumonia. 2. No change in minimal left lower lobe opacity. 3. Atherosclerosis. Chest CTA 07/03/24 12:55 Impression: 1. Negative for definite pulmonary embolic disease. 2. Increase in nodular opacities in right upper lobe, right middle lobe, lingula and left lower lobe. Laboratory Results WBC 17.12 10^3/uL (3.29-11.43) H 07/03/24 12:02 RBC 3.95 10^6/uL (3.85-5.65) 07/03/24 12:02 Hgb 11.50 g/dL (11.27-16.99) 07/03/24 12:02 Hct 36.8 % (36-47) 07/03/24 12: MCV 93.2 fl (85-98) 07/03/24 12:02 MCH 29.1 pg (27-33) 07/03/24 12:02 MCHC 31.3 g/dL (30-55) 07/03/24 12:02 RDW 12.7 % (12.1-15.1) 07/03/24 12:02 Plt Count 259 10^3/cmm (157-399) 07/03/24 12: MPV 9.1 fL (7.4-10.4) 07/03/24 12:02 Neut % (Auto) 86.9 % 07/03/24 12:02 Lymph % (Auto) 7.1 % 07/03/24 12:02 [place] % (Auto) 4.6 % 07/03/24 12:02 Eos % (Auto) 0.4 % 07/03/24 12:02 Baso % (Auto) 0.4 % 07/03/24 12:02 Neut # (Auto) 14.90 10^3/uL (1.8-7.7) H 07/03/24 12:02 Lymph # (Auto) 1.2 10^3/uL (0.8-4.8) 07/03/24 12:02 [place] # (Auto) 0.8 10^3/uL (0.2-0.9) 07/03/24 12:02 Eos # (Auto) 0.1 10^3/uL (0.0-0.8) 07/03/24 12:02 Baso # (Auto) 0.1 10^3/uL (0.0-0.1) 07/03/24 12:02 Nucleated RBC % (auto) 0 % 07/03/24 12:02 Nucleated RBCs # 0.0 /100WBC 07/03/24 12:02 Sodium 139 mmol/L (136-145) 07/03/24 12:02 Potassium 3.6 mmol/L (3.5-5.1) 07/03/24 12:02 Chloride 105 mmol/L (98-107) 07/03/24 12:02 Carbon Dioxide 21 mmol/L (22-29) L 07/03/24 12:02 Anion Gap 16.6 (5-19) 07/03/24 12:02 BUN 9 mg/dL (8-23) 07/03/24 12:02 Creatinine 0.8 mg/dL (0.5-0.9) 07/03/24 12:02 GFR Calculation 70.9 mL/min (90-130) L 07/03/24 12:02 Glucose 115 mg/dL (65-115) 07/03/24 12:02 Calculated Osmolality 288 mOsm/kg (285-295) 07/03/24 12:02 Lactic Acid 0.8 mmol/L (0.5-2.2) 07/03/24 12:02 Calcium 9.4 mg/dL (8.5-10.5) 07/03/24 12:02 Total Bilirubin 0.3 mg/dL (0.15-1.2) 07/03/24 12:02 AST 21 U/L (0-32) 07/03/24 12:02 ALT 15 U/L (0-33) 07/03/24 12:02 Alkaline Phosphatase 88 U/L (35-105) 07/03/24 12:02 C-Reactive Protein 171.8 mg/L (0.0-4.9) H 07/03/24 12:02 NT-Pro-B Natriuret Pep 3375 pg/mL (0-125) H 07/03/24 12:02 Total Protein 7.3 g/dL (6.6-8.7) 07/03/24 12:02 Albumin 3.5 g/dL (3.5-5.2) 07/03/24 12:02 Globulin 3.8 g/dL (1.3-4.6) 07/03/24 12:02 Procalcitonin 0.32 ng/mL (0-0.5) 07/03/24 12:02 SARS-CoV-2 Ag (Rapid) negative (Negative) 07/03/24 15:45 All radiology interpretation(s) finalized by discharge Discharge Plan Discharge Patient Disposition: Admitted As Inpatient Clinical Impression: Pneumonia, COPD with acute exacerbation, Failure of outpatient treatment Condition: Stable Coding Level of Care Code ED Licensing Director for Lillian Yang
[2024-07-03 12:10] LABS: Basophils # 0.1 10^3/uL (0.0-0.1); Basophils % 0.4 %; Eosinophils # 0.1 10^3/uL (0.0-0.8); Eosinophils % 0.4 %; Hematocrit 36.8 % (36-47); Lymphocytes # 1.2 10^3/uL (0.8-4.8); Lymphocytes % 7.1 %; Mean Corpuscular HGB Conc 31.3 g/dL (30-55); Mean Corpuscular Hemoglobin 29.1 pg (27-33); Mean Corpuscular Volume 93.2 fl (85-98); Mean Platelet Volume 9.1 fL (7.4-10.4); Monocytes # 0.8 10^3/uL (0.2-0.9); Monocytes % 4.6 %; Neutrophils % 86.9 %; Nucleated Red Blood Cells % 0 %; Platelet Count 259 10^3/cmm (157-399); Red Blood Count 3.95 10^6/uL (3.85-5.65); Red Cell Distribution Width 12.7 % (12.1-15.1); White Blood Count 17.12 10^3/uL (3.29-11.43)
[2024-07-03 12:26] LABS: Lactic Sepsis W/Reflex 0.8 mmol/L (0.5-2.2)
[2024-07-03 12:36] LABS: NT Pro B Type Natriuretic Pept 3375 pg/mL (0-125); Procalcitonin 0.32 ng/mL (0-0.5)
[2024-07-03 12:47] LABS: Alanine Aminotransferase 15 U/L (0-33); Albumin Level 3.5 g/dL (3.5-5.2); Alkaline Phosphatase 88 U/L (35-105); Anion Gap 16.6 (5-19); Aspartate Amino Transferase 21 U/L (0-32); Blood Urea Nitrogen 9 mg/dL (8-23); C Reactive Protein 171.8 mg/L (0.0-4.9); Calcium 9.4 mg/dL (8.5-10.5); Carbon Dioxide 21 mmol/L (22-29); Chloride 105 mmol/L (98-107); Creatinine Clr Calc Pharmacy 72.2161; Globulin 3.8 g/dL (1.3-4.6); Glomerular Filtration Rate 70.9 mL/min (90-130); Glucose 115 mg/dL (65-115); Osmolality Calculated 288 mOsm/kg (285-295); Potassium 3.6 mmol/L (3.5-5.1); Sodium 139 mmol/L (136-145); Total Bilirubin 0.3 mg/dL (0.15-1.2); Total Protein 7.3 g/dL (6.6-8.7)
--- NOTE | 2024-07-03 12:55 | CT_ITS ---
WS: [id number] CTA scan of the chest with IV contrast. Additional two-dimensional coronal and sagittal reconstructio n and MIP images was performed. 07/03/2024 Clinical Data: chest pain, abn xray Comparison: CT chest, 03/13/2024 DLP: 410.[address] scans at [facility] use at least one of these dose optimization techniques: automated e xposure control; mA and/or kV adjustment per patient size (includes targeted exams where dose is matc hed to clinical indication); or iterative reconstruction. Findings: The central pulmonary arteries and peripheral pulmonary arteries fill normally with no evidence of in traluminal filling defects. In the right middle and right lower lobe the opacities have increased and show impingement onto the peripheral pulmonary arteries. The lingular and left lower lobe opacities also impinge onto the peripheral pulmonary arteries. Again no definite intraluminal filling defects a re seen but the peripheral pulmonary arteries show external impingement. No pulmonary embolic disease is noted. The nodular opacities in the right upper lobe, right middle lobe, lingula and left lower lobe have in creased in the last 4 months.. The heart size is normal with no pericardial effusion. The coronary ar teries and the thoracic aorta show calcification. No effusions are seen. The pulmonary arterial syste m and thoracic aorta demonstrate no dilatations. There is no axillary or significant mediastinal collin nopathy. The thyroid gland shows normal enhancement. The trachea bifurcates into the bronchi. The upper abdomen shows no abnormalities. Midline sternotomy sutures are present. There is osteoarthr itis of the thoracic vertebral bodies. The visualized liver, spleen, pancreas, gallbladder, adrenal g lands and superior poles of the kidneys are not remarkable. CT/CT angio chest PE protcl [id number] Impression: 1. Negative for definite pulmonary embolic disease. 2. Increase in nodular opacities in right upper lobe, right middle lobe, lingul a and left lower lobe.
[2024-07-03] MEDS: iohexol 350 mg/mL 500 mL Btl (per mL) IV (13:34)
[2024-07-03] MEDS: linezolid premix 600 MG/300 ML PREMIX 300 MG IV (14:22)
[2024-07-03] MEDS: sodium chloride 0.9% 1,000 ML 999 ML IV (14:22)
[2024-07-03] MEDS: methylPREDNISolone sod succ 125 mg/2 mL INJ IVP (14:24)
[2024-07-03] MEDS: meropenem 500 mg SDV IVP (14:24)
--- NOTE | 2024-07-03 14:32 | PC.PHAR ---
PT STATES FORGOT HER MEDS THIS MORNING.
[2024-07-03] MEDS: albuterol 2.5 mg/3 mL Neb INHALATION (15:22)
[2024-07-03 16:10] LABS: SARS Covid-2 Antigen negative (Negative)
--- NOTE | 2024-07-03 16:24 | P.HP_ITS ---
Providers/Chief Complaint 2 Primary Care Provider: Venancio Mota MD Chief Complaint: fall,sob History of Present Illness 69-year-old female with history of COPD, hyperlipidemia, HTN, CAD, vaping, comes in due to unimproving pneumonia with worsening symptoms despite outpatient treatment with Levaquin, fluconazole. She has been having cough, dyspnea, fever at home, producing purulent appearing phlegm. She has history of recurrent pseudomonal pneumonia sometimes coinfection with Klebsiella. In ER she is noted to have significant leukocytosis 17,000. CT angiogram of the chest with increase in nodular opacities in the right upper lobe, right middle lobe, lingula and left lower lobe. Review of Systems 2 Const: Denies: fever(s), chills, body aches or malaise ENMT: Denies: throat pain Card: Denies: chest pain, edema, pre-syncope or dyspnea on exertion Resp: Reports: dyspnea, productive cough and change in phlegm color; Denies: hemoptysis GI: Denies: abdominal pain, nausea, vomiting, diarrhea, constipation, hematochezia or melena : Denies: flank pain, urinary frequency or hematuria Musc: Denies: back pain, joint swelling or joint redness Skin/Breast: Denies: rash or new lesions Neuro: Denies: headache(s) or dizziness Medications/Allergies Home Medications Medication Instructions Recorded Confirmed Last Taken Type magnesium 250 mg tablet 250 mg PO QAM 12/08/19 07/03/24 07/02/24 History multivitamin (Daily Multi-Vitamin 1 tab PO QAM 12/08/19 07/03/24 07/02/24 History tablet) aspirin 81 mg tablet,delayed 81 mg PO QAM 08/30/20 07/03/24 07/02/24 History release (Adult Aspirin Regimen) cholecalciferol (vitamin D3) 50 2,000 unit PO QAM 06/01/21 07/03/24 07/02/24 History mcg (2,000 unit) tablet melatonin 10 mg tablet 10 mg PO BEDTIME Sleep 01/09/22 07/03/24 07/02/24 History nitroglycerin 0.4 mg sublingual 0.4 mg sublingual Q5M PRN chest 01/16/22 07/03/24 04/06/24 Rx tablet pain #60 tabs docusate sodium 100 mg capsule 200 mg PO BEDTIME PRN Constipation 05/08/22 07/03/24 04/06/24 History (Colace) omega 8-mie-trl-fish oil 300 1 cap PO DAILY 05/01/23 07/03/24 07/02/24 History mg-1,000 mg capsule (Fish Oil) ascorbate calcium (vitamin C) 500 500 mg PO QAM 05/24/23 07/03/24 07/02/24 History mg tablet lovastatin 20 mg tablet 20 mg PO BEDTIME #90 tabs 06/20/23 07/03/24 07/02/24 Rx clopidogrel 75 mg tablet (Plavix) 75 mg PO QAM #90 tabs 08/08/23 07/03/24 07/02/24 Rx ipratropium 0.5 mg-albuterol 3 mg 3 ml inhalation TID PRN Shortness 09/02/23 07/03/24 04/06/24 Rx (2.5 mg base)/3 mL nebulization Of Breath #180 mL soln omeprazole 20 mg capsule,delayed 20 mg PO BID #180 caps 11/12/23 07/03/24 07/02/24 Rx release ranolazine 1,000 mg 1,000 mg PO BID #180 tabs 12/18/23 07/03/24 07/02/24 Rx tablet,extended release,12 hr tranylcypromine 10 mg tablet 20 mg (2 x 10 mg) PO BID #120 tabs 03/27/24 07/03/24 07/02/24 Rx (Parnate) acetaminophen 650 mg 1,300 mg PO Q8H PRN Pain 04/02/24 07/03/24 04/07/24 History tablet,extended release carvedilol 3.125 mg tablet 3.125 mg PO BID 04/02/24 07/03/24 07/02/24 History fluticasone propionate 50 2 spray intranasal BID 04/02/24 07/03/24 07/02/24 History mcg/actuation nasal spray,suspension montelukast 10 mg tablet 10 mg PO BEDTIME 04/02/24 07/03/24 07/02/24 History nystatin 100,000 unit/mL oral 100,000 unit buccal DAILY #200 mL 04/21/24 07/03/24 07/02/24 Rx suspension potassium chloride 20 mEq 20 meq PO QAM #90 tabs 04/28/24 07/03/24 07/02/24 Rx tablet,extended release(part/cryst) topiramate 50 mg tablet 50 mg PO BID pain 30 days #60 tabs 04/28/24 07/03/24 07/02/24 Rx alprazolam 1 mg tablet (Xanax) 1 mg PO TID #90 tabs 05/20/24 07/03/24 07/02/24 Rx fluconazole 150 mg tablet 150 mg PO Q48H #10 tabs 06/03/24 07/03/24 07/02/24 Rx fluticasone 500 mcg-salmeterol 50 1 inh inhalation BID #180 ea 06/23/24 07/03/24 07/02/24 Rx mcg/dose blistr powdr for inhalation (Wixela Inhub) baclofen 10 mg tablet 10 mg PO TID spasms 07/03/24 07/03/24 07/02/24 History furosemide 20 mg tablet 20 mg PO DAILY PRN Edema 07/03/24 07/03/24 Unknown History Allergies Allergy/AdvReac Type Severity Reaction Status Date / Time pregabalin [From Lyrica] Allergy Severe dizziness Verified 05/29/24 11:29 codeine AdvReac Unknown Unknown Verified 05/29/24 11:29 gabapentin [From Neurontin] AdvReac Unknown dizziness Verified 05/29/24 11:29 oxycodone [From OxyContin] AdvReac Unknown Unknown Verified 05/29/24 11:29 Pszeauk-QIQ-EhB Reductase AdvReac Unknown muscle Verified 05/29/24 11:29 Inhibitor aches [Jurenyp-Mbp-Fkk Reductase Inhibitor] tramadol AdvReac Unknown rash Verified 05/29/24 11:29 PFSH Acute 2 PFSH: Medical History Psychiatric care 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 Status post reverse total arthroplasty of right shoulder Status post laparoscopic cholecystectomy 01/01/2020 S/P right hemicolectomy 01/01/2020 H/O cardiac catheterization Status post colonoscopy S/p bilateral carpal tunnel release H/O rotator cuff surgery History of right shoulder replacement S/P CABG x 4 Hx of appendectomy Family History Daughter Diabetes Sister Diabetes x3 Brother Diabetes Son Hypertension Family/Other Thyroid disease granddaughter Mother Heart disease Denies family history of Colon cancer Ovarian cancer Clotting disorder Hyperlipidemia Breast cancer Anesthesia complication Bleeding disorder Uterine cancer Stroke Social History Smoking and tobacco/nicotine status: former use of tobacco/nicotine Vitals/I&O/Wt Last Vital Signs Temp 98.4 F 07/03/24 11:32 Pulse 76 07/03/24 15:27 Resp 16 07/03/24 15:23 BP 110/71 07/03/24 14:11 Pulse Ox 94 07/03/24 15:23 O2 Del Method Room Air 07/03/24 15:23 Weight last 48 hrs Weight 78.925 kg Physical Exam 2 Const: COMMON NORMALS: patient oriented x3 and alert GENERAL APPEARANCE: c ooperative ORIENTATION/CONSCIOUSNESS: Yes awake HENMT: COMMON NORMALS: oropharynx normal Neck/C-Spine: COMMON NORMALS: no JVD Chest: OTHER: Rhonchi, wheeze in the right lung. Cardio: COMMON NORMALS: no JVD, regular rhythm, S1 normal heart sound present, S2 normal heart sound present and No murmurs present (Cardio) RHYTHM: regular rhythm HEART SOUNDS: S1 normal heart sound present and S2 normal heart sound present GI: COMMON NORMALS: Normal to inspection, nondistended, normoactive bowel sounds present, Soft to palpation and non-tender PALPATION: Yes Soft to palpation Extremity: COMMON NORMALS: no joint enlargement and no pedal edema Neuro: COMMON NORMALS: patient oriented x3 and moves all extremities S ENSORIUM/ORIENTATION: Yes alert Skin: COMMON NORMALS: no rashes or lesions noted GENERAL SKIN EXAM: no rashes or lesions noted Data 07/03/24 12:02 07/03/24 12:02 Micro: Microbiology 07/03/24 12:02 Blood Culture - Preliminary Blood SPECIMEN COLLECTED 07/03/24 12:04 Blood Culture - Preliminary Blood SPECIMEN COLLECTED A&P Assessment and plan (1) Pseudomonal pneumonia: Reviewed vitals, CBC, CMP, CRP, NT-proBNP, COVID-19 answered, chest x-ray, CTA chest, ER note, discussed with ER provider. Reviewed PCPs note. Worsening symptoms, improving pneumonia despite outpatient treatment, with history of recurrent pneumonia with Pseudomonas and/or Klebsiella. Noted worsening findings in right upper, middle and left lower lobe. No PE on CTA. She has been having a fever at home, here with high leukocytosis of 19,000. With worsening dyspnea, productive cough with changes sputum color with purulent secretions. This despite being on Levaquin, fluconazole. It is not clear whether pseudomonal which previously was sensitive to quinolones may now have become resistant. Discussed with her obtaining sputum culture. For now continue antibiotic coverage with meropenem, and given lack of response for now we will give MRSA coverage as well. We also discussed with ER physician pulmonology consult if available. QuantiFERON gold was sent from ER, on prior review of prior labs she has had multiple AFB smears which were negative. So far has not had any fungal infections, nor growth on cultures, for now we will not continue antifungal coverage. Monitor for risk of seizure with meropenem. Risk of adrenal cytosis with linezolid. She does have a moderate hiatal hernia with previously noted aspiration and reflux, discussing with her she states that she eats dinner around 7 PM, then lies down to watch TV and usually falls asleep afterward around 9 or 930. Would benefit from fasting for 6 hours prior to going to sleep. Hospital bed to elevate head of bed. She additionally vapes. Encourage cessation. (2) Failure of outpatient treatment: Failure despite appropriate antibiotic coverage with Levaquin also empirically was covered with Diflucan. With worsening as above. (3) COPD exacerbation: With history of COPD, with also worsening dyspnea, productive cough with purulent sputum, severe COPD exacerbation. Received Solu-Medrol 125 mg, will continue 40 mg every 6 hours, antibiotics empirically as above. DuoNebs. Monitor oxygenation. Plan CAD: Continue aspirin, Plavix HTN: Monitor blood pressures, continue carvedilol HLD: Continue statin Anxiety: Continue alprazolam Moderate hiatal hernia: On PPI, continue. With recurrent aspiration pneumonia, would benefit from hospital bed, elevate head of bed. Fasting 4 to 6 hours prior to going to sleep. Attestations 2 Medical Necessity Statement*: Admission of over 2 midnights anticipated for assessment and management of worsening pneumonia despite appropriate outpatient treatment, with history of recurrent pseudomonal pneumonia, with concomitant severe COPD exacerbation, with high leukocytosis, dyspnea, multilobar opacities on CT angiogram. Diagnoses Pseudomonal pneumonia J15.1 Failure of outpatient treatment Z78.9 COPD exacerbation J44.1
[2024-07-03] MEDS: ranolazine (12HR) 500 mg Tablet 1000 MG PO (18:59)
[2024-07-03] MEDS: topiramate 25 mg Tablet 50 MG PO (18:59)
[2024-07-03] MEDS: carvedilol 3.125 mg Tablet PO (18:59)
[2024-07-03] MEDS: pantoprazole DR 40 mg Tablet PO (19:00)
[2024-07-03] MEDS: ipratropium-albuterol 3 mL Neb INHALATION (20:35)
[2024-07-03] MEDS: methylPREDNISolone sod succ 40 mg/mL INJ IVP (20:48)
[2024-07-03] MEDS: atorvastatin 40 mg Tablet 20 MG PO (20:48)
[2024-07-03] MEDS: baclofen 10 mg Tablet PO (20:49)
[2024-07-03] MEDS: montelukast sodium 10 mg Tablet PO (20:49)
[2024-07-03] MEDS: ALPRAZolam 0.5 mg Tablet 1 MG PO (20:49)
[2024-07-03] MEDS: MEROPENEM 2,000 MG in sodium chloride 0.9% (plus) 50 ML 100 MG IV (22:13)
[2024-07-04] VITALS (10 sets, daily range): BP systolic 87–111; BP diastolic 46–64; PULSE 64–78; RESP 14–20; TEMP 36.5–36.7; O2SAT 90–94
[2024-07-04] MEDS: methylPREDNISolone sod succ 40 mg/mL INJ IVP ×4 (01:58→20:25)
[2024-07-04] MEDS: linezolid premix 600 MG/300 ML PREMIX 300 MG IV ×2 (01:58→14:28)
[2024-07-04 03:32] LABS: Basophils % 0.2 %; Hematocrit 31.3 % (36-47); Lymphocytes # 1.3 10^3/uL (0.8-4.8); Mean Corpuscular HGB Conc 31.3 g/dL (30-55); Mean Corpuscular Hemoglobin 29.4 pg (27-33); Mean Platelet Volume 9.7 fL (7.4-10.4); Monocytes # 0.1 10^3/uL (0.2-0.9); Monocytes % 0.9 %; Neutrophils # 10.58 10^3/uL (1.8-7.7); Neutrophils % 87.1 %; Nucleated Red Blood Cells % 0 %; Platelet Count 221 10^3/cmm (157-399); Red Blood Count 3.33 10^6/uL (3.85-5.65); Red Cell Distribution Width 13.1 % (12.1-15.1); White Blood Count 12.15 10^3/uL (3.29-11.43)
[2024-07-04 04:09] LABS: Anion Gap 14.4 (5-19); Blood Urea Nitrogen 12 mg/dL (8-23); Calcium 8.7 mg/dL (8.5-10.5); Carbon Dioxide 20 mmol/L (22-29); Chloride 105 mmol/L (98-107); Creatinine Clr Calc Pharmacy 65.3916; Glomerular Filtration Rate 61.9 mL/min (90-130); Glucose 254 mg/dL (65-115); Osmolality Calculated 290 mOsm/kg (285-295); Potassium 3.4 mmol/L (3.5-5.1); Sodium 136 mmol/L (136-145)
[2024-07-04] MEDS: potassium chloride ER 20 mEq Tablet PO ×2 (05:42→10:09)
[2024-07-04] MEDS: aspirin 81 mg EC Tablet PO (05:42)
[2024-07-04] MEDS: clopidogrel 75 mg Tablet PO (05:42)
[2024-07-04] MEDS: MEROPENEM 2,000 MG in sodium chloride 0.9% (plus) 50 ML 100 MG IV ×3 (05:43→21:33)
[2024-07-04] MEDS: sodium chloride 0.9% 250 ML IV (08:22)
[2024-07-04] MEDS: ipratropium-albuterol 3 mL Neb INHALATION ×3 (08:36→19:48)
[2024-07-04] MEDS: nystatin 100,000 unit/mL UDC 5 mL 100000 UNIT PO (10:03)
[2024-07-04] MEDS: pantoprazole DR 40 mg Tablet PO ×2 (10:04→17:35)
[2024-07-04] MEDS: topiramate 25 mg Tablet 50 MG PO ×2 (10:04→17:35)
[2024-07-04] MEDS: ranolazine (12HR) 500 mg Tablet 1000 MG PO ×2 (10:04→17:35)
--- NOTE | 2024-07-04 17:47 | P.PN_ITS ---
Subjective 2 Subjective: She is still coughing. Still with dyspnea today. Blood pressure low this morning. We discussed we have to hold several her medications. She states that she really cannot go without alprazolam. We discussed with her that it was changed to as needed, she would need to notify nursing staff in case she was needing it. She is agreeable with this course of action. Vitals/I&O/Wt Last Vital Signs Temp 98.0 F 07/04/24 15:53 Pulse 78 07/04/24 15:53 Resp 16 07/04/24 15:53 BP 111/62 07/04/24 15:53 Pulse Ox 94 07/04/24 15:53 O2 Del Method Room Air 07/04/24 15:53 O2 Flow Rate 2 07/03/24 17:13 07/04/24 07/04/24 07/04/24 06:59 14:59 22:59 Intake Total 350 / 1700 730 / 730 590 / 1320 Balance 350 / 1700 730 / 730 590 / 1320 Weight last 48 hrs Weight 86.137 kg Weight 82.191 kg Weight 78.925 kg Physical Exam 2 Const: COMMON NORMALS: patient oriented x3 and alert GENERAL APPEARANCE: c ooperative ORIENTATION/CONSCIOUSNESS: Yes awake HENMT: COMMON NORMALS: oropharynx normal Neck/C-Spine: COMMON NORMALS: no JVD Resp: COMMON NORMALS: clear to auscultation bilaterally AUSCULTATION: clear to auscultation bilaterally Cardio: COMMON NORMALS: no JVD, regular rhythm, S1 normal heart sound present, S2 normal heart sound present and No murmurs present (Cardio) RHYTHM: regular rhythm HEART SOUNDS: S1 normal heart sound present and S2 normal heart sound present GI: COMMON NORMALS: Normal to inspection, nondistended, normoactive bowel sounds present, Soft to palpation and non-tender PALPATION: Yes Soft to palpation Extremity: COMMON NORMALS: no joint enlargement and no pedal edema Neuro: COMMON NORMALS: patient oriented x3 and moves all extremities S ENSORIUM/ORIENTATION: Yes alert Skin: COMMON NORMALS: no rashes or lesions noted GENERAL SKIN EXAM: no rashes or lesions noted Data 07/04/24 03:11 07/04/24 03:11 Micro: Microbiology 07/03/24 16:45 Gram Stain - Final Sputum - Expectorated Sputum Sputum Culture - Preliminary Gram Negative Rods 07/03/24 12:04 Blood Culture - Preliminary Blood NEGATIVE TO DATE 07/03/24 12:02 Blood Culture - Preliminary Blood NEGATIVE TO DATE A&P Assessment and plan (1) Pseudomonal pneumonia: Reviewed vitals, CBC, BMP, blood culture, sputum culture. She reports symptomatically she is not feeling better. Additionally this morning hypotensive, blood pressure 87/53. WBC did show some improvement to 12,000. She is afebrile. Blood cultures so far negative. Sputum culture with gram- negative rods, moderate. Follow-up. History of recurrent pseudomonal infections. Continue antipseudomonal coverage for suspected recurrence of pseudomonal pneumonia. Reviewed QuantiFERON gold, pending. Continue meropenem due to lack of response to quinolones as outpatient. Monitor for risk of seizure with meropenem. Risk of adrenal cytosis with linezolid. Check MRSA PCR. Worsening symptoms, improving pneumonia despite outpatient treatment, with history of recurrent pneumonia with Pseudomonas and/or Klebsiella. Noted worsening findings in right upper, middle and left lower lobe. No PE on CTA. She has been having a fever at home, here with high leukocytosis of 19,000. With worsening dyspnea, productive cough with changes sputum color with purulent secretions. This despite being on Levaquin, fluconazole. It is not clear whether pseudomonal which previously was sensitive to quinolones may now have become resistant. Discussed with her obtaining sputum culture. She does have a moderate hiatal hernia with previously noted aspiration and reflux, discussing with her she states that she eats dinner around 7 PM, then lies down to watch TV and usually falls asleep afterward around 9 or 930. Would benefit from fasting for 6 hours prior to going to sleep. Hospital bed to elevate head of bed. At current time she declines hospital bed, states that she has multiple pillows of different types that she can build up the mattress which bands. She states that if she cannot accomplish a 45 degree angle in that manner she will follow- up with primary provider to apply for hospital bed. She additionally vapes. Encourage cessation. (2) Failure of outpatient treatment: Failure despite appropriate antibiotic coverage with Levaquin also empirically was covered with Diflucan. With worsening as above. (3) COPD exacerbation: With history of COPD, with also worsening dyspnea, productive cough with purulent sputum, severe COPD exacerbation. Received Solu-Medrol 125 mg, will continue 40 mg every 6 hours, antibiotics empirically as above. DuoNebs. Monitor oxygenation. Plan Hypotension: Hypotensive this morning blood pressure 87/53. Unclear cause. Possible adrenal insufficiency. Continues with steroids for COPD exacerbation. Had to adjust several medications, held Coreg, changed alprazolam to as needed, held baclofen. Reassess blood pressures. CAD: Continue aspirin, Plavix HTN: Monitor blood pressures, continue carvedilol HLD: Continue statin Anxiety: Continue alprazolam Moderate hiatal hernia: On PPI, continue. With recurrent aspiration pneumonia, would benefit from hospital bed, elevate head of bed. Fasting 4 to 6 hours prior to going to sleep. Attestations 2 Medical Necessity Statement*: Continued admission necessary for assessment and management of recurrent pneumonia, pseudomonal pneumonia, with lack of response to appropriate outpatient therapy, with worsening symptoms, currently also hypotension, possible adrenal insufficiency. and High MDM includes number and complexity of problems actively addressed during encounter as documented Diagnoses Pseudomonal pneumonia J15.1 Failure of outpatient treatment Z78.9 COPD exacerbation J44.1
[2024-07-04] MEDS: atorvastatin 40 mg Tablet 20 MG PO (20:25)
[2024-07-04] MEDS: montelukast sodium 10 mg Tablet PO (20:26)
[2024-07-04] MEDS: ALPRAZolam 0.5 mg Tablet 1 MG PO (20:40)
[2024-07-04] MEDS: acetaminophen 325 mg Tablet 650 MG PO (23:36)
[2024-07-05] VITALS (12 sets, daily range): BP systolic 86–127; BP diastolic 46–75; PULSE 68–79; RESP 14–20; TEMP 36.6–36.9; O2SAT 91–95
[2024-07-05] MEDS: linezolid premix 600 MG/300 ML PREMIX 300 MG IV ×2 (02:02→14:54)
[2024-07-05] MEDS: methylPREDNISolone sod succ 40 mg/mL INJ IVP ×4 (02:02→20:18)
[2024-07-05 04:21] LABS: Basophils % 0.2 %; Lymphocytes # 1.4 10^3/uL (0.8-4.8); Lymphocytes % 6.3 %; Mean Corpuscular HGB Conc 30.9 g/dL (30-55); Mean Corpuscular Hemoglobin 29.4 pg (27-33); Mean Corpuscular Volume 95.1 fl (85-98); Mean Platelet Volume 9.7 fL (7.4-10.4); Monocytes # 0.4 10^3/uL (0.2-0.9); Monocytes % 1.7 %; Neutrophils # 19.56 10^3/uL (1.8-7.7); Neutrophils % 90.2 %; Nucleated Red Blood Cells % 0 %; Platelet Count 294 10^3/cmm (157-399); Red Blood Count 3.47 10^6/uL (3.85-5.65); White Blood Count 21.66 10^3/uL (3.29-11.43)
[2024-07-05 04:39] LABS: Anion Gap 16.3 (5-19); Blood Urea Nitrogen 14 mg/dL (8-23); Calcium 8.8 mg/dL (8.5-10.5); Carbon Dioxide 20 mmol/L (22-29); Chloride 105 mmol/L (98-107); Creatinine Clr Calc Pharmacy 75.8894; Glomerular Filtration Rate 70.9 mL/min (90-130); Glucose 178 mg/dL (65-115); Osmolality Calculated 289 mOsm/kg (285-295); Potassium 4.3 mmol/L (3.5-5.1); Sodium 137 mmol/L (136-145)
[2024-07-05] MEDS: aspirin 81 mg EC Tablet PO (06:01)
[2024-07-05] MEDS: clopidogrel 75 mg Tablet PO (06:01)
[2024-07-05] MEDS: potassium chloride ER 20 mEq Tablet PO (06:01)
[2024-07-05] MEDS: MEROPENEM 2,000 MG in sodium chloride 0.9% (plus) 50 ML 100 MG IV ×3 (06:02→21:44)
[2024-07-05] MEDS: nystatin 100,000 unit/mL UDC 5 mL 100000 UNIT PO (08:07)
[2024-07-05] MEDS: topiramate 25 mg Tablet 50 MG PO ×2 (08:09→18:26)
[2024-07-05] MEDS: ranolazine (12HR) 500 mg Tablet 1000 MG PO ×2 (08:09→18:25)
[2024-07-05] MEDS: pantoprazole DR 40 mg Tablet PO ×2 (08:09→18:25)
[2024-07-05] MEDS: ipratropium-albuterol 3 mL Neb INHALATION ×3 (08:16→19:48)
[2024-07-05] MEDS: TRANYLCYPROMINE 10 MG 10 EACH PO ×2 (11:23→18:28)
--- NOTE | 2024-07-05 16:00 | P.PN_ITS ---
Subjective 2 Subjective: She feels she is improving. Improving in terms of sputum production, improving color of sputum, although still purulent appearing, now with less green. Improving dyspnea. Vitals/I&O/Wt Last Vital Signs Temp 98.5 F 07/05/24 12:00 Pulse 72 07/05/24 14:00 Resp 18 07/05/24 14:00 BP 118/71 07/05/24 12:00 Pulse Ox 92 07/05/24 14:00 O2 Del Method Room Air 07/05/24 14:00 O2 Flow Rate 2 07/03/24 17:13 07/05/24 07/05/24 07/05/24 06:59 14:59 22:59 Intake Total 350 / 1960 410 / 410 Balance 350 / 1960 410 / 410 Weight last 48 hrs Weight 87.815 kg Weight 86.137 kg Weight 82.191 kg Physical Exam 2 Const: COMMON NORMALS: patient oriented x3 and alert GENERAL APPEARANCE: c ooperative ORIENTATION/CONSCIOUSNESS: Yes awake HENMT: COMMON NORMALS: oropharynx normal Neck/C-Spine: COMMON NORMALS: no JVD Resp: COMMON NORMALS: clear to auscultation bilaterally AUSCULTATION: clear to auscultation bilaterally Cardio: COMMON NORMALS: no JVD, regular rhythm, S1 normal heart sound present, S2 normal heart sound present and No murmurs present (Cardio) RHYTHM: regular rhythm HEART SOUNDS: S1 normal heart sound present and S2 normal heart sound present GI: COMMON NORMALS: Normal to inspection, nondistended, normoactive bowel sounds present, Soft to palpation and non-tender PALPATION: Yes Soft to palpation Extremity: COMMON NORMALS: no joint enlargement and no pedal edema Neuro: COMMON NORMALS: patient oriented x3 and moves all extremities S ENSORIUM/ORIENTATION: Yes alert Skin: COMMON NORMALS: no rashes or lesions noted GENERAL SKIN EXAM: no rashes or lesions noted Data 07/05/24 03:21 07/05/24 03:21 Micro: Microbiology 07/03/24 16:45 Gram Stain - Final Sputum - Expectorated Sputum Sputum Culture - Preliminary Gram Negative Rods Gram Negative Rods#2 07/03/24 12:04 Blood Culture - Preliminary Blood NEGATIVE TO DATE 07/03/24 12:02 Blood Culture - Preliminary Blood NEGATIVE TO DATE A&P Assessment and plan (1) Pseudomonal pneumonia: She is now subjectively improving. Reviewed vitals, she is on room air, 91%. Reviewed CBC, BMP, leukocytosis worsened up to 21.6. Predominantly neutrophilic, 19.56. Reviewed blood culture, sputum culture, blood culture negative. Discussed with her sputum culture growing gram-negative rods. Follow-up cultures, follow-up sensitivities and identification, concern for possible resistant bacteria given lack of response to outpatient treatment with Levaquin. Previously pseudomonal and Klebsiella infections but where usually sensitive to quinolones. Pending quant to [facility], but lower likelihood suspicion for mycobacterial infection. Needs to follow-up with pulmonology, follow-up with PCP with regards to hiatal hernia, reflux, recurrent pneumonia. Follow-up with pulmonology for reassessment of the above as well as nodules also in the upper lobes with somewhat not entirely typical distribution of aspiration pneumonia. Continue meropenem due to lack of response to quinolones as outpatient. Monitor for risk of seizure with meropenem. Risk of aGranulocytosis with linezolid. MRSA PCR requested and pending. On presentation worsening symptoms, improving pneumonia despite outpatient treatment, with history of recurrent pneumonia with Pseudomonas and/or Klebsiella. Noted worsening findings in right upper, middle and left lower lobe. No PE on CTA. She has been having a fever at home, here with high leukocytosis of 19,000. With worsening dyspnea, productive cough with changes sputum color with purulent secretions. This despite being on Levaquin, fluconazole. It is not clear whether pseudomonal which previously was sensitive to quinolones may now have become resistant. She does have a moderate hiatal hernia with previously noted aspiration and reflux, discussing with her she states that she eats dinner around 7 PM, then lies down to watch TV and usually falls asleep afterward around 9 or 930. Would benefit from fasting for 6 hours prior to going to sleep. Hospital bed to elevate head of bed. At current time she declines hospital bed, states that she has multiple pillows of different types that she can build up the mattress which bands. She states that if she cannot accomplish a 45 degree angle in that manner she will follow- up with primary provider to apply for hospital bed. She additionally vapes. Encourage cessation. (2) Hypotension: Hypotensive again last night. Blood pressure down to 86/46. Has been off carvedilol. Baclofen on hold. Alprazolam has been only as needed. Not entirely clear reason for hypotension. Discussed with her possibility of component of adrenal insufficiency. She is on steroids. Will continue for now without de-escalation. Monitor blood pressures. Monitor for risk of hyperglycemia, gastritis, encephalopathy with steroids. Check topiramate level. (3) Failure of outpatient treatment: Failure despite appropriate antibiotic coverage with Levaquin also empirically was covered with Diflucan. With worsening as above. (4) COPD exacerbation: Gradually improving. With history of COPD, with also worsening dyspnea, productive cough with purulent sputum, severe COPD exacerbation. Continue 40 mg every 6 hours, antibiotics empirically as above. DuoNebs. Monitor oxygenation. Plan CAD: Continue aspirin, Plavix HTN: Monitor blood pressures, continue carvedilol HLD: Continue statin Anxiety: Continue alprazolam Moderate hiatal hernia: On PPI, continue. With recurrent aspiration pneumonia, would benefit from hospital bed, elevate head of bed. Fasting 4 to 6 hours prior to going to sleep. Attestations 2 Medical Necessity Statement*: Continued admission necessary for assessment and management of recurrent pneumonia, pseudomonal pneumonia, with lack of response to appropriate outpatient therapy, with worsening symptoms, currently also hypotension, possible adrenal insufficiency. and High MDM includes described risk of complication, morbidity or mortality of management as documented Diagnoses Pseudomonal pneumonia J15.1 Hypotension I95.9 Failure of outpatient treatment Z78.9 COPD exacerbation J44.1
[2024-07-05] MEDS: atorvastatin 40 mg Tablet 20 MG PO (20:18)
[2024-07-05] MEDS: ALPRAZolam 0.5 mg Tablet 1 MG PO (20:18)
[2024-07-05] MEDS: montelukast sodium 10 mg Tablet PO (20:18)
[2024-07-05 20:35] LABS: Bilirubin Urine Negative (Negative); Blood Urine Negative (Negative); Glucose Urine UA Negative (Normal); Ketones Urine Trace (Negative); Leukocyte Esterase Urine Negative (Negative); Nitrate Urine Negative (Negative); Protein Urine Trace (Negative); Urine Appearance Clear (CLEAR); Urine Color Yellow (Yellow); pH Urine 7.5 (5-7)
[2024-07-05 20:37] LABS: Bacteria Urine None Seen /hpf; Hyaline Casts Urine 0-4 /lpf; RBC Urine 0-2 /hpf (0-2); Squamous Epithelial Cell Urine 0-5 /hpf (0-5); WBC Urine 0-5 /hpf (0-5)
[2024-07-05] MEDS: diphenhydrAMINE 25 mg Capsule PO (23:46)
[2024-07-06] VITALS (10 sets, daily range): BP systolic 106–129; BP diastolic 62–74; PULSE 64–85; RESP 15–18; TEMP 36.6–37; O2SAT 93–96
[2024-07-06] MEDS: methylPREDNISolone sod succ 40 mg/mL INJ IVP ×3 (01:14→20:26)
[2024-07-06] MEDS: linezolid premix 600 MG/300 ML PREMIX 300 MG IV (01:16)
[2024-07-06] MEDS: ALPRAZolam 0.5 mg Tablet 1 MG PO ×2 (04:23→21:56)
[2024-07-06] MEDS: aspirin 81 mg EC Tablet PO (05:20)
[2024-07-06] MEDS: clopidogrel 75 mg Tablet PO (05:20)
[2024-07-06] MEDS: potassium chloride ER 20 mEq Tablet PO (05:20)
[2024-07-06] MEDS: MEROPENEM 2,000 MG in sodium chloride 0.9% (plus) 50 ML 100 MG IV ×2 (05:20→14:18)
[2024-07-06] MEDS: ipratropium-albuterol 3 mL Neb INHALATION ×3 (08:50→19:57)
--- NOTE | 2024-07-06 09:07 | PC.CHAP ---
Pastoral Care Encounter/Spiritual Assessment Type of Contact [] Declined admissions nurse visit [] Patient/Family/Request visit [] Outpatient visit [] Follow-up visit [] Physician referral [] Code/Alert [] Routine visit [] Staff referral [] Actively dying [] Patient sleeping [] Family support [] [] Out of room [] Palliative care [] [] Receiving care in room [] Pre-surgical visit [] Trauma [] Long length of stay [] ICU visit [] Other: Relational/Emotional Strength [] Patient feels connected with others/family/visitors/staff [] Distress [] Loneliness/isolation [] Abandonment Spirituality of Patient [] Person of Radha [] Attends Sabianism of their Radha [] Believes in Prayer [] Reads Bible or Mu-Ism materials [] There are Spiritual issues to be addressed Clinical Administrator Interventions [] Prayer [] Active listening [] Non-anxious presence [] Spiritual/emotional support [] Crisis/trauma care [] Spiritual counseling [] Bereavement support [] Provided bereavement packet [] Provided Bible/devotional materials [] Provided toy/stuffed animal, coloring book to patient or family member [] Provided Communion [] Anointing/[place] [] Salvation [] Completed spiritual assessment [] Other: Impact on Illness or Injury [] Angry [] Fearful [] Anxious [] Often cries [] Exhaustion [] Unable to work [] Unable to attend orthodoxy [] Unable to walk/stand [] Unable to read [] Unable to drive [] Unable to eat/drink [] Unable to sleep [] Unable to be with family [] Patient intubated [] Other: Summary precaution Time spent with patient
--- NOTE | 2024-07-06 10:09 | PC.SOCIAL ---
IMM Update pg 2 of IMM Updated and reviewed w/ patient. Copy provided and copy dated, initialed and placed in chart.
[2024-07-06] MEDS: nystatin 100,000 unit/mL UDC 5 mL 100000 UNIT PO (10:25)
[2024-07-06] MEDS: topiramate 25 mg Tablet 50 MG PO ×2 (10:25→17:46)
[2024-07-06] MEDS: pantoprazole DR 40 mg Tablet PO ×2 (10:25→17:46)
[2024-07-06] MEDS: ranolazine (12HR) 500 mg Tablet 1000 MG PO ×2 (10:26→17:45)
[2024-07-06] MEDS: TRANYLCYPROMINE 10 MG 10 EACH PO ×2 (10:26→17:46)
[2024-07-06 14:33] LABS: Basophils % 0.2 %; Hematocrit 33.6 % (36-47); Lymphocytes # 1.1 10^3/uL (0.8-4.8); Lymphocytes % 9.1 %; Mean Corpuscular HGB Conc 31.8 g/dL (30-55); Mean Corpuscular Hemoglobin 28.9 pg (27-33); Mean Corpuscular Volume 90.8 fl (85-98); Monocytes # 0.4 10^3/uL (0.2-0.9); Monocytes % 3.4 %; Neutrophils # 10.51 10^3/uL (1.8-7.7); Nucleated Red Blood Cells % 0 %; Platelet Count 326 10^3/cmm (157-399); Red Cell Distribution Width 12.8 % (12.1-15.1); White Blood Count 12.36 10^3/uL (3.29-11.43)
[2024-07-06 14:59] LABS: Anion Gap 13.8 (5-19); Blood Urea Nitrogen 17 mg/dL (8-23); Carbon Dioxide 23 mmol/L (22-29); Chloride 100 mmol/L (98-107); Creatinine Clr Calc Pharmacy 76.3769; Glomerular Filtration Rate 82.7 mL/min (90-130); Glucose 131 mg/dL (65-115); Osmolality Calculated 279 mOsm/kg (285-295); Potassium 3.8 mmol/L (3.5-5.1); Sodium 133 mmol/L (136-145)
[2024-07-06 15:24] LABS: Estmated Average Glucose 111; Hemoglobin A1C 5.5 % (4.0-6.0)
[2024-07-06 15:37] LABS: Procalcitonin 0.21 ng/mL (0-0.5); Thyroid Stimulating Hormone 0.23 uIU/mL (0.27-4.20); Vitamin B12 702 pg/mL (232-1245)
[2024-07-06 15:48] LABS: Iron 117 ug/dL (37-145); Percent Saturation 53.9 % (20-50); Total Iron Binding Capacity 217 mcg/dl; Unsaturated Iron Binding 100 ug/dL (112-347)
[2024-07-06 16:16] LABS: Methicillin-Resist S.aureu PCR NOT DETECTED (NOT DETECTED)
--- NOTE | 2024-07-06 16:46 | P.PN_ITS ---
Subjective 2 Subjective: Hospital course, labs appreciated. On examination patient is sitting up comfortably in bed. States she is feeling a lot better. Remains on room air. States she is not able to sleep which she attributes to high doses of steroids. She states she thinks as if her brain is working overtime. Denies any nausea, ting, headache. Vitals/I&O/Wt Last Vital Signs Temp 98.2 F 07/06/24 12:00 Pulse 65 07/06/24 14:44 Resp 18 07/06/24 14:44 BP 127/68 07/06/24 12:00 Pulse Ox 95 07/06/24 14:46 O2 Del Method Room Air 07/06/24 14:46 O2 Flow Rate 2 07/03/24 17:13 07/06/24 07/06/24 07/06/24 06:59 14:59 22:59 Intake Total 350 / 1590 751.667 / 751.667 Balance 350 / 1590 751.667 / 751.667 Weight last 48 hrs Weight 88.995 kg Weight 87.815 kg Physical Exam 2 Const: COMMON NORMALS: patient oriented x3 and alert GENERAL APPEARANCE: c ooperative ORIENTATION/CONSCIOUSNESS: Yes awake HENMT: COMMON NORMALS: oropharynx normal Neck/C-Spine: COMMON NORMALS: no JVD Chest: OTHER: Rhonchi, wheeze in the right lung. Resp: COMMON NORMALS: clear to auscultation bilaterally AUSCULTATION: clear to auscultation bilaterally Cardio: COMMON NORMALS: no JVD, regular rhythm, S1 normal heart sound present, S2 normal heart sound present and No murmurs present (Cardio) RHYTHM: regular rhythm HEART SOUNDS: S1 normal heart sound present and S2 normal heart sound present GI: COMMON NORMALS: Normal to inspection, nondistended, normoactive bowel sounds present, Soft to palpation and non-tender PALPATION: Yes Soft to palpation Extremity: COMMON NORMALS: no joint enlargement and no pedal edema Neuro: COMMON NORMALS: patient oriented x3 and moves all extremities S ENSORIUM/ORIENTATION: Yes alert Skin: COMMON NORMALS: no rashes or lesions noted GENERAL SKIN EXAM: no rashes or lesions noted Data 07/06/24 14:23 07/06/24 14:23 Micro: Microbiology 07/03/24 16:45 Gram Stain - Final Sputum - Expectorated Sputum Sputum Culture - Final Klebsiella pneumoniae Pseudomonas aeruginosa A&P Assessment and plan (1) Pseudomonal pneumonia: With failure to outpatient antibiotics. History of aspiration pneumonia in the past. CT shows significant hiatal hernia with regurgitation. Sputum culture growing Pseudomonas and Klebsiella as in the past. Pseudomonas intermittent sensitive to Levaquin. Keep oxygen saturation over 90%. Discussed in detail with the patient regarding aspiration precaution. Discussed that she should be up and around with head of the bed elevated to at least more than 45 degrees for around 1 hour post each meal. Also discussed if she continues to have similar complaints she should follow-up with residential collections as an outpatient for further management of hiatal hernia. For now continue with IV meropenem. Decrease dose to 1 g every 8 hourly. Will plan to continue IV antibiotics for overall 5 days and transition to oral antibiotics on discharge to finish a 14-day course. Wean Solu-Medrol to 40 mg every 12 hourly. Pulmicort twice daily, DuoNebs every 6 hour. She additionally vapes. Encourage cessation. (2) Hypotension: Goal blood pressure less than 140/90 mmHg. Blood pressure stable off antihypertensives for now. Patient takes Coreg 3.125 mg twice daily along with baclofen at home. Currently on hold. For now we will continue to hold off. Check topiramate level. (3) Failure of outpatient treatment: Failure despite appropriate antibiotic coverage with Levaquin also empirically was covered with Diflucan. With worsening as above. (4) COPD exacerbation: As above. Plan CAD: Continue aspirin, Plavix HTN: Goal blood pressure less than 140/90 mmHg with mean over 65. Currently blood pressure stable off antihypertensive. HLD: Continue statin Anxiety: Continue alprazolam Moderate hiatal hernia: On PPI, continue. With recurrent aspiration pneumonia, would benefit from hospital bed, elevate head of bed. Fasting 4 to 6 hours prior to going to sleep. Full code Cardiac diet Aspiration precaution Protonix for PUD prophylaxis Heparin 5000 every 12 hourly for DVT prophylaxis Attestations 2 Medical Necessity Statement*: Requires further hospitalization for management of hypoxia in setting of COPD exacerbation from aspiration pneumonitis with Pseudomonas and Klebsiella pneumonia Diagnoses Pseudomonal pneumonia J15.1 Hypotension I95.9 Failure of outpatient treatment Z78.9 COPD exacerbation J44.1
[2024-07-06] MEDS: heparin 5,000 unit/mL INJ 1 mL 5000 UNIT SUBCUT (17:46)
[2024-07-06] MEDS: budesonide 0.5 mg/2 mL Neb INHALATION (19:56)
[2024-07-06] MEDS: atorvastatin 40 mg Tablet 20 MG PO (20:25)
[2024-07-06] MEDS: montelukast sodium 10 mg Tablet PO (20:25)
[2024-07-06] MEDS: meropenem 1,000 mg SDV 1000 MG IVP (21:56)
[2024-07-07] VITALS (7 sets, daily range): BP systolic 115–136; BP diastolic 70–86; PULSE 71–88; RESP 17–20; TEMP 36.7–36.9; O2SAT 93–96
[2024-07-07 03:05] LABS: Basophils % 0.2 %; Lymphocytes # 1.3 10^3/uL (0.8-4.8); Lymphocytes % 11.4 %; Mean Corpuscular HGB Conc 31.7 g/dL (30-55); Mean Corpuscular Hemoglobin 28.9 pg (27-33); Mean Corpuscular Volume 91.1 fl (85-98); Mean Platelet Volume 9.2 fL (7.4-10.4); Monocytes # 0.3 10^3/uL (0.2-0.9); Monocytes % 2.8 %; Neutrophils # 9.13 10^3/uL (1.8-7.7); Neutrophils % 83.1 %; Nucleated Red Blood Cells % 0 %; Platelet Count 342 10^3/cmm (157-399); Red Blood Count 3.95 10^6/uL (3.85-5.65); Red Cell Distribution Width 12.7 % (12.1-15.1); White Blood Count 10.99 10^3/uL (3.29-11.43)
[2024-07-07 03:27] LABS: Alanine Aminotransferase 23 U/L (0-33); Albumin Level 3.2 g/dL (3.5-5.2); Alkaline Phosphatase 69 U/L (35-105); Anion Gap 15.1 (5-19); Aspartate Amino Transferase 16 U/L (0-32); Blood Urea Nitrogen 19 mg/dL (8-23); Calcium 8.9 mg/dL (8.5-10.5); Carbon Dioxide 23 mmol/L (22-29); Chloride 101 mmol/L (98-107); Creatinine Clr Calc Pharmacy 76.3769; Globulin 3.3 g/dL (1.3-4.6); Glomerular Filtration Rate 82.7 mL/min (90-130); Glucose 112 mg/dL (65-115); Osmolality Calculated 283 mOsm/kg (285-295); Potassium 4.1 mmol/L (3.5-5.1); Sodium 135 mmol/L (136-145); Total Bilirubin 0.2 mg/dL (0.15-1.2); Total Protein 6.5 g/dL (6.6-8.7)
[2024-07-07 03:28] LABS: Magnesium 2.1 mg/dL (1.7-2.3)
[2024-07-07] MEDS: potassium chloride ER 20 mEq Tablet PO (05:11)
[2024-07-07] MEDS: clopidogrel 75 mg Tablet PO (05:11)
[2024-07-07] MEDS: heparin 5,000 unit/mL INJ 1 mL 5000 UNIT SUBCUT ×2 (05:11→17:15)
[2024-07-07] MEDS: aspirin 81 mg EC Tablet PO (05:11)
[2024-07-07] MEDS: meropenem 1,000 mg SDV 1000 MG IVP ×3 (05:12→22:01)
[2024-07-07] MEDS: ALPRAZolam 0.5 mg Tablet 1 MG PO ×2 (06:17→15:46)
[2024-07-07] MEDS: acetaminophen 325 mg Tablet 650 MG PO (06:17)
[2024-07-07] MEDS: budesonide 0.5 mg/2 mL Neb INHALATION (07:39)
[2024-07-07] MEDS: ipratropium-albuterol 3 mL Neb INHALATION ×2 (07:39→14:19)
[2024-07-07] MEDS: pantoprazole DR 40 mg Tablet PO ×2 (08:50→17:15)
[2024-07-07] MEDS: TRANYLCYPROMINE 10 MG 10 EACH PO ×2 (08:51→17:15)
[2024-07-07] MEDS: topiramate 25 mg Tablet 50 MG PO ×2 (08:51→17:15)
[2024-07-07] MEDS: ranolazine (12HR) 500 mg Tablet 1000 MG PO ×2 (08:51→17:15)
[2024-07-07] MEDS: nystatin 100,000 unit/mL UDC 5 mL 100000 UNIT PO (08:51)
[2024-07-07] MEDS: methylPREDNISolone sod succ 40 mg/mL INJ IVP (08:51)
--- NOTE | 2024-07-07 09:04 | PC.CHAP ---
Pastoral Care Encounter/Spiritual Assessment Type of Contact [] Declined gage designer visit [] Patient/Family/Request visit [] Outpatient visit [] Follow-up visit [] Physician referral [] Code/Alert [] Routine visit [] Staff referral [] Actively dying [] Patient sleeping [] Family support [] [] Out of room [] Palliative care [] [] Receiving care in room [] Pre-surgical visit [] Trauma [] Long length of stay [] ICU visit [x ] Other:Contact precautions. No visit. Relational/Emotional Strength [] Patient feels connected with others/family/visitors/staff [] Distress [] Loneliness/isolation [] Abandonment Spirituality of Patient [] Person of Radha [] Attends Yazidism of their Radha [] Believes in Prayer [] Reads Bible or Mosque materials [] There are Spiritual issues to be addressed Metal Room Dental Technician Interventions [] Prayer [] Active listening [] Non-anxious presence [] Spiritual/emotional support [] Crisis/trauma care [] Spiritual counseling [] Bereavement support [] Provided bereavement packet [] Provided Bible/devotional materials [] Provided toy/stuffed animal, coloring book to patient or family member [] Provided Communion [] Anointing/[facility] [] Salvation [] Completed spiritual assessment [] Other: Impact on Illness or Injury [] Angry [] Fearful [] Anxious [] Often cries [] Exhaustion [] Unable to work [] Unable to attend quaker [] Unable to walk/stand [] Unable to read [] Unable to drive [] Unable to eat/drink [] Unable to sleep [] Unable to be with family [] Patient intubated [] Other: Summary Time spent with patient
--- NOTE | 2024-07-07 15:26 | P.PN_ITS ---
Subjective 2 Subjective: No acute vents overnight. Patient states she is feeling a lot better. Complaining of not able to sleep at night. Denies any nausea, vomiting, headache. Blood pressures have remained stable. Vitals/I&O/Wt Last Vital Signs Temp 98.5 F 07/07/24 15:25 Pulse 88 07/07/24 15:25 Resp 18 07/07/24 15:25 BP 135/86 07/07/24 15:25 Pulse Ox 94 07/07/24 15:25 O2 Del Method Room Air 07/07/24 15:25 O2 Flow Rate 2 07/03/24 17:13 07/07/24 07/07/24 07/07/24 06:59 14:59 22:59 Intake Total 240 / 240 Balance 240 / 240 Weight last 48 hrs Weight 86.438 kg Weight 88.995 kg Physical Exam 2 Const: COMMON NORMALS: patient oriented x3 and alert GENERAL APPEARANCE: c ooperative ORIENTATION/CONSCIOUSNESS: Yes awake HENMT: COMMON NORMALS: oropharynx normal Neck/C-Spine: COMMON NORMALS: no JVD Chest: OTHER: Rhonchi, wheeze in the right lung. Resp: COMMON NORMALS: clear to auscultation bilaterally AUSCULTATION: clear to auscultation bilaterally Cardio: COMMON NORMALS: no JVD, regular rhythm, S1 normal heart sound present, S2 normal heart sound present and No murmurs present (Cardio) RHYTHM: regular rhythm HEART SOUNDS: S1 normal heart sound present and S2 normal heart sound present GI: COMMON NORMALS: Normal to inspection, nondistended, normoactive bowel sounds present, Soft to palpation and non-tender PALPATION: Yes Soft to palpation Extremity: COMMON NORMALS: no joint enlargement and no pedal edema Neuro: COMMON NORMALS: patient oriented x3 and moves all extremities S ENSORIUM/ORIENTATION: Yes alert Skin: COMMON NORMALS: no rashes or lesions noted GENERAL SKIN EXAM: no rashes or lesions noted Data 07/07/24 02:41 07/07/24 02:41 Micro: Microbiology 07/03/24 16:45 Gram Stain - Final Sputum - Expectorated Sputum Sputum Culture - Final Klebsiella pneumoniae Pseudomonas aeruginosa A&P Assessment and plan (1) Pseudomonal pneumonia: With failure to outpatient antibiotics. History of aspiration pneumonia in the past. CT shows significant hiatal hernia with regurgitation. Sputum culture growing Pseudomonas and Klebsiella as in the past. Pseudomonas intermittent sensitive to Levaquin. Keep oxygen saturation over 90%. Discussed in detail with the patient regarding aspiration precaution. Discussed that she should be up and around with head of the bed elevated to at least more than 45 degrees for around 1 hour post each meal. Also discussed if she continues to have similar complaints she should follow-up with bottomer operator as an outpatient for further management of hiatal hernia. For now continue with IV meropenem. Decrease dose to 1 g every 8 hourly. Will plan to continue IV antibiotics for overall 5 days and transition to oral antibiotics on discharge to finish a 14-day course. Wean Solu-Medrol to 40 mg every 12 hourly. Pulmicort twice daily, DuoNebs every 6 hour. She additionally vapes. Encourage cessation. (2) Hypotension: Goal blood pressure less than 140/90 mmHg. Blood pressure stable off antihypertensives for now. Patient takes Coreg 3.125 mg twice daily along with baclofen at home. Currently on hold. For now we will continue to hold off. Check topiramate level. (3) Failure of outpatient treatment: Failure despite appropriate antibiotic coverage with Levaquin also empirically was covered with Diflucan. With worsening as above. (4) COPD exacerbation: As above. Plan CAD: Continue aspirin, Plavix HTN: Goal blood pressure less than 140/90 mmHg with mean over 65. Currently blood pressure stable off antihypertensive. HLD: Continue statin Anxiety: Continue alprazolam Moderate hiatal hernia: On PPI, continue. With recurrent aspiration pneumonia, would benefit from hospital bed, elevate head of bed. Fasting 4 to 6 hours prior to going to sleep. Full code Cardiac diet Aspiration precaution Protonix for PUD prophylaxis Heparin 5000 every 12 hourly for DVT prophylaxis Plan for the day: Wean Solu-Medrol 40 mg IV twice daily to 40 mg daily and to prednisone 40 mg oral daily from tomorrow. Add trazodone 50 mg nightly as needed. Appreciate sputum culture results. Day 5 of appropriate antibiotics today. Will transition to oral antibiotics for a further 5-day course tomorrow. Continue to hold off on home dose of Coreg. Goal blood pressure less than 140/90 emergency. Discharge plan: Plan to discharge in a.m. on oral steroids and antibiotics if patient remains clinically stable. Attestations 2 Medical Necessity Statement*: Requires further hospitalization for management of COPD exacerbation in setting of aspiration pneumonitis, Pseudomonas pneumonia Diagnoses Pseudomonal pneumonia J15.1 Hypotension I95.9 Failure of outpatient treatment Z78.9 COPD exacerbation J44.1
[2024-07-07 16:34] LABS: Quantiferon Mitogen 3.79 IU/mL; Quantiferon Nil 0.02 IU/mL; Quantiferon TB Gold NEGATIVE (NEGATIVE)
[2024-07-07] MEDS: montelukast sodium 10 mg Tablet PO (20:30)
[2024-07-07] MEDS: atorvastatin 40 mg Tablet 20 MG PO (20:30)
[2024-07-07] MEDS: trazodone 50 mg Tablet PO (22:01)
[2024-07-08 05:48] LABS: Basophils % 0.2 %; Eosinophils # 0.2 10^3/uL (0.0-0.8); Eosinophils % 1.4 %; Lymphocytes # 3.9 10^3/uL (0.8-4.8); Lymphocytes % 35.3 %; Mean Corpuscular Volume 90.5 fl (85-98); Mean Platelet Volume 8.8 fL (7.4-10.4); Monocytes # 1.1 10^3/uL (0.2-0.9); Monocytes % 9.7 %; Neutrophils # 5.64 10^3/uL (1.8-7.7); Nucleated Red Blood Cells % 0 %; Platelet Count 409 10^3/cmm (157-399); Red Blood Count 4.42 10^6/uL (3.85-5.65); Red Cell Distribution Width 12.9 % (12.1-15.1); White Blood Count 11.08 10^3/uL (3.29-11.43)
[2024-07-08] MEDS: meropenem 1,000 mg SDV 1000 MG IVP (05:51)
[2024-07-08] MEDS: potassium chloride ER 20 mEq Tablet PO (05:51)
[2024-07-08] MEDS: heparin 5,000 unit/mL INJ 1 mL 5000 UNIT SUBCUT (05:51)
[2024-07-08] MEDS: clopidogrel 75 mg Tablet PO (05:51)
[2024-07-08] MEDS: aspirin 81 mg EC Tablet PO (05:51)
[2024-07-08 06:11] LABS: Alanine Aminotransferase 20 U/L (0-33); Albumin Level 3.3 g/dL (3.5-5.2); Alkaline Phosphatase 70 U/L (35-105); Anion Gap 16.5 (5-19); Aspartate Amino Transferase 14 U/L (0-32); Blood Urea Nitrogen 18 mg/dL (8-23); Carbon Dioxide 24 mmol/L (22-29); Chloride 104 mmol/L (98-107); Creatinine Clr Calc Pharmacy 75.3204; Globulin 3.6 g/dL (1.3-4.6); Glomerular Filtration Rate 82.7 mL/min (90-130); Glucose 80 mg/dL (65-115); Magnesium 2.3 mg/dL (1.7-2.3); Osmolality Calculated 293 mOsm/kg (285-295); Potassium 3.5 mmol/L (3.5-5.1); Sodium 141 mmol/L (136-145); Total Bilirubin 0.3 mg/dL (0.15-1.2); Total Protein 6.9 g/dL (6.6-8.7)
[2024-07-08] MEDS: ALPRAZolam 0.5 mg Tablet 1 MG PO (06:40)
[2024-07-08 07:30] VITALS: BP 120/77; PULSE 104; RESP 16; TEMP 36.8; O2SAT 96
[2024-07-08] MEDS: topiramate 25 mg Tablet 50 MG PO (08:34)
[2024-07-08] MEDS: pantoprazole DR 40 mg Tablet PO (08:34)
[2024-07-08] MEDS: TRANYLCYPROMINE 10 MG 10 EACH PO (08:35)
[2024-07-08] MEDS: nystatin 100,000 unit/mL UDC 5 mL 100000 UNIT PO (08:35)
[2024-07-08] MEDS: predniSONE 20 mg Tablet 40 MG PO (08:35)
[2024-07-08] MEDS: ranolazine (12HR) 500 mg Tablet 1000 MG PO (08:35)
--- NOTE | 2024-07-08 09:58 | PC.SOCIAL ---
IMM Update pg 2 of IMM updated and reviewed w/ patient. Copy provided and copy dated, initialed and placed in chart.
--- NOTE | 2024-07-08 11:03 | PM.DCS ---
Discharge Providers Date of Admission: 07/03/24 18:14 Date of Discharge: July 08, 2024 Attending Provider at Admission: Jamey Hernandez Attending Provider at Discharge: Enoch Martínez MD Primary Care Provider: Venancio Mota MD Diagnoses at Discharge Discharge Diagnosis (1) Pseudomonal pneumonia: Status: Acute (2) Hypotension: Status: Acute (3) Failure of outpatient treatment: Status: Acute (4) COPD exacerbation: Status: Acute (5) Hyperthyroidism determined by thyroid function test: Status: Acute Reason for Visit Reason for Visit: fall,sob Brief History: History as per HPI: 69-year-old female with history of COPD, hyperlipidemia, HTN, CAD, vaping, comes in due to unimproving pneumonia with worsening symptoms despite outpatient treatment with Levaquin, fluconazole. She has been having cough, dyspnea, fever at home, producing purulent appearing phlegm. She has history of recurrent pseudomonal pneumonia sometimes coinfection with Klebsiella. In ER she is noted to have significant leukocytosis 17,000. CT angiogram of the chest with increase in nodular opacities in the right upper lobe, right middle lobe, lingula and left lower lobe. Hospital Course Hospital Course Patient was admitted to the hospital further evaluation and management of hypoxia in setting of COPD exacerbation and aspiration pneumonitis. She was started on broad-spectrum antibiotics as per culture history in the past. She responded well to the treatment. Sputum culture again grew Pseudomonas and Klebsiella. Antibiotics were tapered as per the culture sensitivities. She has finished 5-day course of IV antibiotics. Her hospitalization was complicated by her developing mild hypotension for which her antihypertensives were withheld. During hospitalization she was also found to have mild hyperthyroidism. She has been discharged in hemodynamically stable condition on oral Levaquin for next 7 days, metoprolol 25 mg twice daily along with methimazole 5 mg once daily. She is not to take baclofen and carvedilol for now. She should follow-up with her primary care provider within next 1 week. 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 Physical Exam Const: COMMON NORMALS: patient oriented x3 and alert GENERAL APPEARANCE: cooperative ORIENTATION/CONSCIOUSNESS: Yes awake HENMT: COMMON NORMALS: oropharynx normal Neck/C-Spine: COMMON NORMALS: no JVD Chest: OTHER: Rhonchi, wheeze in the right lung. Resp: COMMON NORMALS: clear to auscultation bilaterally AUSCULTATION: clear to auscultation bilaterally Cardio: COMMON NORMALS: no JVD, regular rhythm, S1 normal heart sound present, S2 normal heart sound present and No murmurs present (Cardio) RHYTHM: regular rhythm HEART SOUNDS: S1 normal heart sound present and S2 normal heart sound present GI: COMMON NORMALS: Normal to inspection, nondistended, normoactive bowel sounds present, Soft to palpation and non-tender PALPATION: Yes Soft to palpation Extremity: COMMON NORMALS: no joint enlargement and no pedal edema Neuro: COMMON NORMALS: patient oriented x3 and moves all extremities SENSORIUM/ORIENTATION: Yes alert Skin: COMMON NORMALS: no rashes or lesions noted GENERAL SKIN EXAM: no rashes or lesions noted Discharge Data Studies Completed and Pending Completed Studies During Hospitalization Category Date Time Status CT angio chest PE protcl [id number] Stat Cat Scan 07/03/24 12:55 Completed XR chest 1V portable [id number] Stat Exams 07/03/24 11:36 Completed Pending at discharge Category Date Time Status Blood Culture Stat Lab 07/03/24 12:02 Results Free T4 Free Thyroxine Routine Lab 07/08/24 11:02 Ordered MAG [Magnesium] AM LABS Lab 07/09/24 04:00 Ordered T3 Free Routine Lab 07/08/24 11:02 Ordered Topiramate Level Routine Lab 07/05/24 05:31 Received Radiology Impressions Chest X-Ray 07/03/24 11:36 Impression: 1. Increase in right lung opacity which could represent worsening pneumonia. 2. No change in minimal left lower lobe opacity. 3. Atherosclerosis. Chest CTA 07/03/24 12:55 Impression: 1. Negative for definite pulmonary embolic disease. 2. Increase in nodular opacities in right upper lobe, right middle lobe, lingula and left lower lobe. Laboratory Results WBC 11.08 10^3/uL (3.29-11.43) 07/08/24 05:14 Corrected WBC Cancelled 07/06/24 05:31 RBC 4.42 10^6/uL (3.85-5.65) 07/08/24 05:14 Hgb 12.80 g/dL (11.27-16.99) 07/08/24 05:14 Hct 40.0 % (36-47) 07/08/24 05:14 MCV 90.5 fl (85-98) 07/08/24 05:14 MCH 29.0 pg (27-33) 07/08/24 05:14 MCHC 32.0 g/dL (30-55) 07/08/24 05:14 RDW 12.9 % (12.1-15.1) 07/08/24 05:14 Plt Count 409 10^3/cmm (157-399) H 07/08/24 05:14 MPV 8.8 fL (7.4-10.4) 07/08/24 05:14 Gran % Cancelled 07/06/24 05:31 Neut % (Auto) 51.0 % 07/08/24 05:14 Lymph % (Auto) 35.3 % 07/08/24 05:14 [place] % (Auto) 9.7 % 07/08/24 05:14 Eos % (Auto) 1.4 % 07/08/24 05:14 Baso % (Auto) 0.2 % 07/08/24 05:14 Neut # (Auto) 5.64 10^3/uL (1.8-7.7) 07/08/24 05:14 Lymph # (Auto) 3.9 10^3/uL (0.8-4.8) 07/08/24 05:14 [place] # (Auto) 1.1 10^3/uL (0.2-0.9) H 07/08/24 05:14 Eos # (Auto) 0.2 10^3/uL (0.0-0.8) 07/08/24 05:14 Baso # (Auto) 0.0 10^3/uL (0.0-0.1) 07/08/24 05:14 Absolute Gran (auto) Cancelled 07/06/24 05:31 Nucleated RBC % (auto) 0 % 07/08/24 05:14 Nucleated RBCs # 0.0 /100WBC 07/08/24 05:14 Sodium 141 mmol/L (136-145) 07/08/24 05:14 Potassium 3.5 mmol/L (3.5-5.1) 07/08/24 05:14 Chloride 104 mmol/L (98-107) 07/08/24 05:14 Carbon Dioxide 24 mmol/L (22-29) 07/08/24 05:14 Anion Gap 16.5 (5-19) 07/08/24 05:14 BUN 18 mg/dL (8-23) 07/08/24 05:14 Creatinine 0.7 mg/dL (0.5-0.9) 07/08/24 05:14 GFR Calculation 82.7 mL/min (90-130) L 07/08/24 05:14 Glucose 80 mg/dL (65-115) 07/08/24 05:14 Estimat Average Glucose 111 07/06/24 14:23 Hemoglobin A1c 5.5 % (4.0-6.0) 07/06/24 14:23 Calculated Osmolality 293 mOsm/kg (285-295) 07/08/24 05:14 Lactic Acid 0.8 mmol/L (0.5-2.2) 07/03/24 12:02 Calcium 9.0 mg/dL (8.5-10.5) 07/08/24 05:14 Magnesium 2.3 mg/dL (1.7-2.3) 07/08/24 05:14 Iron 117 ug/dL (37-145) 07/06/24 14:23 TIBC 217 mcg/dl 07/06/24 14:23 % Saturation 53.9 % (20-50) H 07/06/24 14:23 Unsat Iron Binding 100 ug/dL (112-347) L 07/06/24 14:23 Total Bilirubin 0.3 mg/dL (0.15-1.2) 07/08/24 05:14 AST 14 U/L (0-32) 07/08/24 05:14 ALT 20 U/L (0-33) 07/08/24 05:14 Alkaline Phosphatase 70 U/L (35-105) 07/08/24 05:14 C-Reactive Protein 171.8 mg/L (0.0-4.9) H 07/03/24 12:02 NT-Pro-B Natriuret Pep 3375 pg/mL (0-125) H 07/03/24 12:02 Total Protein 6.9 g/dL (6.6-8.7) 07/08/24 05:14 Albumin 3.3 g/dL (3.5-5.2) L 07/08/24 05:14 Globulin 3.6 g/dL (1.3-4.6) 07/08/24 05:14 Vitamin B12 702 pg/mL (232-1245) 07/06/24 14:23 Folate 17.0 ng/mL (4.8-37.3) 07/07/24 02:41 Procalcitonin 0.21 ng/mL (0-0.5) 07/06/24 14:23 TSH 0.23 uIU/mL (0.27-4.20) L 07/06/24 14:23 Urine Color Yellow (Yellow) 07/05/24 20:25 Urine Appearance Clear (CLEAR) 07/05/24 20:25 Urine pH 7.5 (5-7) 07/05/24 20:25 Ur Specific [place] 1.020 (1.005-1.030) 07/05/24 20:25 Urine Protein Trace (Negative) A 07/05/24 20:25 Urine Glucose (UA) Negative (Normal) 07/05/24 20:25 Urine Ketones Trace (Negative) 07/05/24 20:25 Urine Blood Negative (Negative) 07/05/24 20:25 Urine Nitrate Negative (Negative) 07/05/24 20:25 Urine Bilirubin Negative (Negative) 07/05/24 20:25 Urine Urobilinogen 1.0 mg/dL (Negative) 07/05/24 20:25 Ur Leukocyte Esterase Negative (Negative) 07/05/24 20:25 Urine RBC 0-2 /hpf (0-2) 07/05/24 20:25 Urine WBC 0-5 /hpf (0-5) 07/05/24 20:25 Ur Squamous Epith Cells 0-5 /hpf (0-5) 07/05/24 20:25 Amorphous Sediment Not Reportable 07/05/24 20:25 Urine Bacteria None seen /hpf (NONE) 07/05/24 20:25 Hyaline Casts 0-4 /lpf H 07/05/24 20:25 SARS-CoV-2 Ag (Rapid) negative (Negative) 07/03/24 15:45 MRSA (PCR) Not detected (NOT DETECTED) 07/04/24 20:21 TB (QFT) Gold In Tube Negative (NEGATIVE) 07/03/24 17:23 TB Test (QFT) Nil 0.02 IU/mL 07/03/24 17:23 TB Test (QFT) Mitogen 3.79 IU/mL 07/03/24 17:23 TB Test Mitogen - Nil 0.00 IU/mL 07/03/24 17:23 TB Test TB -Nil 0.00 IU/mL 07/03/24 17:23 Vitals Last Vital Signs Temp 98.2 F 07/08/24 07:30 Pulse 104 H 07/08/24 07:30 Resp 16 07/08/24 07:30 BP 120/77 07/08/24 07:30 Pulse Ox 96 07/08/24 07:30 O2 Del Method Room Air 07/08/24 08:00 O2 Flow Rate 2 07/03/24 17:13 Discharge Plan Discharge Patient Disposition: Home Condition: Stable Prescriptions: New levofloxacin 750 mg tablet 750 mg PO Q24H 7 Days Qty: 7 0RF prednisone 10 mg tablet See Taper PO DIRECTED Qty: 42 0RF Taper: predniSONE 60-10 60 mg Daily for 2 Days and 0 Hour 50 mg Daily for 2 Days and 0 Hour 40 mg Daily for 2 Days and 0 Hour 30 mg Daily for 2 Days and 0 Hour 20 mg Daily for 2 Days and 0 Hour 10 mg Daily for 2 Days and 0 Hour Rx Instructions: see taper instructions metoprolol succinate 25 mg tablet extended release 24 hr 25 mg PO BID Qty: 60 0RF methimazole 5 mg tablet 5 mg PO DAILY Qty: 30 0RF Continued multivitamin [Daily Multi-Vitamin] Tablet 1 tab PO QAM magnesium 250 mg tablet 250 mg PO QAM cholecalciferol (vitamin D3) 50 mcg (2,000 unit) tablet 2,000 unit PO QAM ascorbate calcium (vitamin C) 500 mg tablet 500 mg PO QAM aspirin [Adult Aspirin Regimen] 81 mg tablet,delayed release (DR/EC) 81 mg PO QAM nitroglycerin 0.4 mg tablet, sublingual 0.4 mg sublingual Q5M PRN (Reason: chest pain) Qty: 60 3RF Rx Instructions: do not exceed 3 doses per episode lovastatin 20 mg tablet 20 mg PO BEDTIME Qty: 90 3RF topiramate 50 mg tablet 50 mg PO BID 30 Days Qty: 60 11RF potassium chloride 20 mEq tablet,ER particles/crystals 20 meq PO QAM Qty: 90 3RF tranylcypromine [Parnate] 10 mg tablet 20 mg PO BID Qty: 120 11RF alprazolam [Xanax] 1 mg tablet 1 mg PO TID Qty: 90 5RF omeprazole 20 mg capsule,delayed release(DR/EC) 20 mg PO BID Qty: 180 3RF nystatin 100,000 unit/mL suspension 100,000 unit buccal DAILY Qty: 200 2RF Rx Instructions: administer 1/2 of dose in each side of the mouth fluconazole 150 mg tablet 150 mg PO Q48H Qty: 10 0RF clopidogrel [Plavix] 75 mg tablet 75 mg PO QAM Qty: 90 12RF ipratropium-albuterol 0.5 mg-3 mg(2.5 mg base)/3 mL solution for nebulization 3 ml INHALATION TID PRN (Reason: Shortness Of Breath) Qty: 180 3RF ranolazine 1,000 mg tablet extended release 12 hr 1,000 mg PO BID Qty: 180 3RF fluticasone propion-salmeterol [Wixela Inhub] 500-50 mcg/dose blister with device 1 inh inhalation BID Qty: 180 3RF melatonin 10 mg Tablet 10 mg PO BEDTIME Colace 100 mg capsule 200 mg PO BEDTIME PRN (Reason: Constipation) omega 7-sos-rci-fish oil [Fish Oil] 300-1,000 mg Capsule 1 cap PO DAILY montelukast 10 mg tablet 10 mg PO BEDTIME fluticasone propionate 50 mcg/actuation spray,suspension 2 spray intranasal BID acetaminophen 650 mg Tablet Extended Release 1,300 mg PO Q8H PRN (Reason: Pain) furosemide 20 mg tablet 20 mg PO DAILY PRN (Reason: Edema) Held baclofen 10 mg tablet 10 mg PO TID Hold Instructions: Resume on 07/15/24. Discontinued carvedilol 3.125 mg tablet 3.125 mg PO BID Discharge Orders: Discharge Order (Routine); Ordered 07/08/24 Ordered By: Enoch Martínez Referrals: Venancio Mota MD [Primary Care Provider] - 07/14/24 10:00 am Discharge Diet: Cardiac Discharge Activity: Resume usual activity and Increase activity as tolerated Patient Instructions: COPD, Metoprolol (By mouth), Prednisone (By mouth), Levofloxacin (By mouth), Pneumonia (GEN), COPD Stoplight, Opioid Safety, Pneumonia Stoplight Activity Restrictions/Additional Instructions: Take steroid taper as prescribed. Take Levaquin once daily for next 7 days. Do not take Coreg or baclofen for now. Instead you will be on metoprolol 25 mg twice daily. You are also on methimazole 5 mg daily for your hyperactive thyroid levels. You should follow-up with the primary care provider within next 1 week. 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 Please continue with aggressive aspiration precautions. Please make sure that you are setting up for at least 45 minutes to 1 hour after each meal. Discharge Attestations Time Spent in Discharge Care*: greater than 30 min Specific Discharge Activities: educating patient, discussing with pcp/other providers, discussing with oil field caser/social workers/dc planners, documenting/other paperwork and evaluating patient/reviewing data Status at Discharge: Cognitive status at discharge: cognitively intact, Behavioral status at discharge: cooperative, Functional status at discharge: independent ambulation, Overall status at discharge: patient is back to baseline Quality Metrics Clinical Quality Measures [ No reported AMI, CVA or VTE this stay] Coding Level of Care Code 07941 Total time (in minutes) for Discharge: 60 Diagnoses Pseudomonal pneumonia J15.1 Hypotension I95.9 Failure of outpatient treatment Z78.9 COPD exacerbation J44.1 Hyperthyroidism determined by thyroid function test E05.90; R94.6
[2024-07-08 12:03] LABS: Free T4 Free Thyroxine 1.95 ng/dL (0.82-1.77); T3 Free 2.7 PG/ML (2.0-4.4)
[2024-07-08 12:17] VITALS: BP 120/77; PULSE 104; RESP 16; TEMP 36.8; O2SAT 96
== END 2024-07-08 11:50 | disposition home or self-care (01) | DRG 190 ==
LOC: ER 17:23 → MEDSURG 18:14
PROVIDERS: Internal Medicine; Admitting Provider Internal Medicine; Emergency Provider Emergency Medicine; PCP Family Medicine; Visit Provider Student in an Organized Health Care Education/Training Program
DX: J44.1 Chronic obstructive pulmonary disease with (acute) exacerbation (principal); J15.1 Pneumonia due to Pseudomonas; J69.0 Pneumonitis due to inhalation of food and vomit; J44.0 Chronic obstructive pulmonary disease with (acute) lower respiratory infection; B96.1 Klebsiella pneumoniae [K. pneumoniae] as the cause of diseases classified elsewhere; E78.5 Hyperlipidemia, unspecified; I10 Essential (primary) hypertension; I25.10 Atherosclerotic heart disease of native coronary artery without angina pectoris; F17.290 Nicotine dependence, other tobacco product, uncomplicated; E78.00 Pure hypercholesterolemia, unspecified; F41.0 Panic disorder [episodic paroxysmal anxiety]; Z96.611 Presence of right artificial shoulder joint; K44.9 Diaphragmatic hernia without obstruction or gangrene; E05.90 Thyrotoxicosis, unspecified without thyrotoxic crisis or storm; I95.9 Hypotension, unspecified; Z79.82 Long term (current) use of aspirin; Z79.02 Long term (current) use of antithrombotics/antiplatelets; Z11.52 Encounter for screening for COVID-19; I25.2 Old myocardial infarction; Z95.1 Presence of aortocoronary bypass graft; Z87.01 Personal history of pneumonia (recurrent); Z90.49 Acquired absence of other specified parts of digestive tract
CPT/HCPCS: 36415; 71045; 71275; 80048; 80053; 80201; 81001; 82607; 82746; 83036; 83540; 83550; 83605; 83735; 83880; 84145; 84439; 84443; 84481; 85025; 86140; 86480; 87040; 87070; 87077; 87186; 87205; 87426; 87641; 93005; 94640; 94664; 96365; 96372; 96375; 99285; J1644; J2020; J2185; J2919; J7030; J7050; J7512; J7613; J7626; Q9967

== ENCOUNTER → 2024-07-16 11:57 | Outpatient (BNVA) | payer MEDICARE, MEDICAID, SELFPAY | PROVIDERS: PCP Family Medicine; Visit Provider Internal Medicine | DX: I25.10 Atherosclerotic heart disease of native coronary artery without angina pectoris (principal); E78.00 Pure hypercholesterolemia, unspecified; I10 Essential (primary) hypertension; J44.9 Chronic obstructive pulmonary disease, unspecified; Z95.1 Presence of aortocoronary bypass graft; I73.9 Peripheral vascular disease, unspecified; Z87.891 Personal history of nicotine dependence | CPT/HCPCS: 99214 ==

== ENCOUNTER 2024-07-24 13:07 | Outpatient (CLI) | payer MEDICARE, MEDICAID, SELFPAY ==
--- NOTE | 2024-07-24 13:15 | US_ITS ---
WS: [id number] Thyroid ultrasound, 07/24/2024 Clinical Data: abnormal CT showing mass on thyroid Comparison: CT cervical spine, 04/02/2024 Findings: The right lobe of thyroid measures 5.9 cm x 2.4 cm x 2.7 cm. The left lobe measures 4.4 cm x 1.7 cm x 2.2 cm. The isthmus measured 0.3 mm. The echotexture of the thyroid is mixed. There is a right lobe nodule measuring 1.2 x 1.6 x 1.7 cm wi th uniform echotexture. A second nodule in the right lobe measuring 1.1 x 1.3 x 1.6 cm in the right t hyroid also shows uniform echotexture. There is a left lobe nodule measuring 1.4 x 1.6 x 1.7 cm with uniform echotexture. The blood flow to the thyroid lobes is normal. There are numerous subcentimeter cysts and nodules throughout the thyroid glands. US/US thyroid [id number] Impression: Multinodular goiter.
== END 2024-07-24 13:08 | disposition home or self-care (01) ==
LOC: RAD 13:08
PROVIDERS: PCP Family Medicine; Visit Provider Family Medicine
DX: R94.6 Abnormal results of thyroid function studies (principal); E04.2 Nontoxic multinodular goiter
CPT/HCPCS: 76536

== ENCOUNTER → 2024-07-27 14:11 | Outpatient (BNVA) | payer MEDICARE, MEDICAID, SELFPAY | PROVIDERS: PCP Family Medicine; Visit Provider Family Medicine | DX: R60.9 Edema, unspecified (principal); J18.9 Pneumonia, unspecified organism | CPT/HCPCS: 80048; 83880; 86140 ==

== ENCOUNTER 2024-08-14 14:24 | Emergency (ER) | payer MEDICARE, MEDICAID, SELFPAY ==
[2024-08-14 14:30] VITALS: BP 141/87; PULSE 74; RESP 16; TEMP 36.4; O2SAT 98
--- NOTE | 2024-08-14 14:49 | ED_ITS ---
HPI - Epistaxis General: Chief complaint: Epistaxis Stated complaint: nose bleeding wont stop Time Seen by Provider: 08/14/24 14:37 History of Present Illness: Patient arrives to the ER from home with complaints of a left epistaxis since about 930 this morning. She did blow her nose when the nosebleed started. She is on Plavix. She has had this before. Bleeding is controlled with pressure at this moment but just since she takes pressure off it starts bleeding again. Related Data Home Medications Medication Instructions Recorded Confirmed magnesium 250 mg tablet 250 mg PO QAM 12/08/19 07/28/24 multivitamin (Daily Multi-Vitamin 1 tab PO QAM 12/08/19 07/28/24 tablet) aspirin 81 mg tablet,delayed 81 mg PO QAM 08/30/20 07/28/24 release (Adult Aspirin Regimen) cholecalciferol (vitamin D3) 50 2,000 unit PO QAM 06/01/21 07/28/24 mcg (2,000 unit) tablet melatonin 10 mg tablet 10 mg PO BEDTIME Sleep 01/09/22 07/28/24 docusate sodium 100 mg capsule 200 mg PO BEDTIME PRN Constipation 05/08/22 07/28/24 (Colace) omega 0-eux-jqm-fish oil 300 1 cap PO DAILY 05/01/23 07/28/24 mg-1,000 mg capsule (Fish Oil) ascorbate calcium (vitamin C) 500 500 mg PO QAM 05/24/23 07/28/24 mg tablet acetaminophen 650 mg 1,300 mg PO Q8H PRN Pain 04/02/24 07/28/24 tablet,extended release montelukast 10 mg tablet 10 mg PO BEDTIME 04/02/24 07/28/24 baclofen 10 mg tablet 10 mg PO TID spasms 07/03/24 07/28/24 furosemide 20 mg tablet 20 mg PO DAILY PRN Edema 07/03/24 07/28/24 Previous Rx's Medication Instructions Recorded lovastatin 20 mg tablet 20 mg PO BEDTIME #90 tabs 06/20/23 clopidogrel 75 mg tablet (Plavix) 75 mg PO QAM #90 tabs 08/08/23 ipratropium 0.5 mg-albuterol 3 mg 3 ml inhalation TID PRN Shortness 09/02/23 (2.5 mg base)/3 mL nebulization Of Breath #180 mL soln omeprazole 20 mg capsule,delayed 20 mg PO BID #180 caps 11/12/23 release ranolazine 1,000 mg 1,000 mg PO BID #180 tabs 12/18/23 tablet,extended release,12 hr tranylcypromine 10 mg tablet 20 mg (2 x 10 mg) PO BID #120 tabs 03/27/24 (Parnate) nystatin 100,000 unit/mL oral 100,000 unit buccal DAILY #200 mL 04/21/24 suspension potassium chloride 20 mEq 20 meq PO QAM #90 tabs 04/28/24 tablet,extended release(part/cryst) topiramate 50 mg tablet 50 mg PO BID pain 30 days #60 tabs 04/28/24 alprazolam 1 mg tablet (Xanax) 1 mg PO TID #90 tabs 05/20/24 fluconazole 150 mg tablet 150 mg PO Q48H #10 tabs 06/03/24 fluticasone 500 mcg-salmeterol 50 1 inh inhalation BID #180 ea 06/23/24 mcg/dose blistr powdr for inhalation (Wixela Inhub) fluticasone propionate 50 See Rx Instructions .Route 07/09/24 mcg/actuation nasal .COMPLEX #96 grams spray,suspension carvedilol 3.125 mg tablet 3.125 mg PO BID #60 tabs 07/14/24 nitroglycerin 0.4 mg sublingual 0.4 mg sublingual Q5M PRN chest 07/16/24 tablet pain #30 tabs trazodone 50 mg tablet See Rx Instructions .Route 07/21/24 .COMPLEX #5 tabs furosemide 40 mg tablet See Rx Instructions .Route 07/29/24 .COMPLEX #90 tabs Allergies Allergy/AdvReac Type Severity Reaction Status Date / Time pregabalin [From Lyrica] Allergy Severe dizziness Verified 08/14/24 14:35 codeine AdvReac Unknown Unknown Verified 08/14/24 14:35 gabapentin [From Neurontin] AdvReac Unknown dizziness Verified 08/14/24 14:35 oxycodone [From OxyContin] AdvReac Unknown Unknown Verified 08/14/24 14:35 Thxxajn-ABX-UdP Reductase AdvReac Unknown muscle Verified 08/14/24 14:35 Inhibitor aches [Vdemgud-Xgu-Klz Reductase Inhibitor] tramadol AdvReac Unknown rash Verified 08/14/24 14:35 Review of Systems General: Reports: 10 or more systems reviewed and unremarkable except in HPI and below PFSH ED PFSH: Medical History Psychiatric care 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 Status post reverse total arthroplasty of right shoulder Status post laparoscopic cholecystectomy 01/01/2020 S/P right hemicolectomy 01/01/2020 H/O cardiac catheterization Status post colonoscopy S/p bilateral carpal tunnel release H/O rotator cuff surgery History of right shoulder replacement S/P CABG x 4 Hx of appendectomy Family History Daughter Diabetes Sister Diabetes x3 Brother Diabetes Son Hypertension Family/Other Thyroid disease granddaughter Mother Heart disease Denies family history of Colon cancer Ovarian cancer Clotting disorder Hyperlipidemia Breast cancer Anesthesia complication Bleeding disorder Uterine cancer Stroke Social History Smoking and tobacco/nicotine status: unknown if used tobacco/nicotine Physical Exam Const: COMMON NORMALS: no acute distress, average body habitus, patient oriented x3, no limitations, healthy appearing, alert and well nourished HENMT: COMMON NORMALS: normocephalic, atraumatic, hearing grossly normal bilaterally and external ears normal; external nose not normal (Nosebleed out of the left nostril.) HEAD & SCALP: normocephalic and atraumatic NOSE: external nose not normal (Nosebleed out of the left nostril.) EXTERNAL EAR: Yes external ears normal Neck/C-Spine: COMMON NORMALS: no JVD Chest: COMMONS NORMALS: normal inspection of the chest and normal palpation of entire chest wall Resp: COMMON NORMALS: normal respiratory effort, No retractions, No use of accessory muscles and clear to auscultation bilaterally AUSCULTATION: clear to auscultation bilaterally Cardio: COMMON NORMALS: no JVD, regular rate, regular rhythm, S1 normal heart sound present, S2 normal heart sound present, No gallops present (Cardio), No clicks present (Cardio), No murmurs present (Cardio) and No rub (Cardio) RATE: regular rate RHYTHM: regular rhythm HEART SOUNDS: S1 normal heart sound present and S2 normal heart sound present Neuro: COMMON NORMALS: patient oriented x3 SENSORIUM/ORIENTATION: Yes alert Procedures Epistaxis Control Time Out Performed: Yes Nostril: left Direct Inspection: unable to visualize Clots Removed by: blowing nose, suction and manually Cautery Used: none Device Inserted: hemostatic balloon Patient Tolerated Procedure: well and no complications Course Vital Signs: Vital signs: Vital Signs Temperature 97.6 F 08/14/24 14:30 Pulse Rate 74 08/14/24 14:30 Respiratory Rate 16 08/14/24 14:30 Blood Pressure 141/87 08/14/24 14:30 Pulse Oximetry 98 08/14/24 14:30 Oxygen Delivery Me thod Room Air 08/14/24 14:30 MDM - Epistaxis Medical Decision Making After Rhino Rocket was placed patient was watched for approximately an hour and did not start bleeding again. Patient be discharged home. Patient was instructed to follow-up with somebody tomorrow to have the Rhino Rocket removed. Differential Diagnosis Likely anterior epistaxis Medical Records I reviewed the patient's medical records. Lab Data I reviewed the patient's lab results. No radiology studies performed this visit Discharge Plan Discharge Patient Disposition: Home Clinical Impression: Epistaxis Condition: Stable Prescriptions: No Action multivitamin [Daily Multi-Vitamin] Tablet 1 tab PO QAM magnesium 250 mg tablet 250 mg PO QAM cholecalciferol (vitamin D3) 50 mcg (2,000 unit) tablet 2,000 unit PO QAM ascorbate calcium (vitamin C) 500 mg tablet 500 mg PO QAM aspirin [Adult Aspirin Regimen] 81 mg tablet,delayed release (DR/EC) 81 mg PO QAM lovastatin 20 mg tablet 20 mg PO BEDTIME Qty: 90 3RF topiramate 50 mg tablet 50 mg PO BID 30 Days Qty: 60 11RF potassium chloride 20 mEq tablet,ER particles/crystals 20 meq PO QAM Qty: 90 3RF tranylcypromine [Parnate] 10 mg tablet 20 mg PO BID Qty: 120 11RF alprazolam [Xanax] 1 mg tablet 1 mg PO TID Qty: 90 5RF carvedilol 3.125 mg tablet 3.125 mg PO BID Qty: 60 11RF omeprazole 20 mg capsule,delayed release(DR/EC) 20 mg PO BID Qty: 180 3RF nitroglycerin 0.4 mg tablet, sublingual 0.4 mg sublingual Q5M PRN (Reason: chest pain) Qty: 30 3RF Rx Instructions: do not exceed 3 doses per episode nystatin 100,000 unit/mL suspension 100,000 unit buccal DAILY Qty: 200 2RF Rx Instructions: administer 1/2 of dose in each side of the mouth fluconazole 150 mg tablet 150 mg PO Q48H Qty: 10 0RF clopidogrel [Plavix] 75 mg tablet 75 mg PO QAM Qty: 90 12RF ipratropium-albuterol 0.5 mg-3 mg(2.5 mg base)/3 mL solution for nebulization 3 ml INHALATION TID PRN (Reason: Shortness Of Breath) Qty: 180 3RF ranolazine 1,000 mg tablet extended release 12 hr 1,000 mg PO BID Qty: 180 3RF fluticasone propion-salmeterol [Wixela Inhub] 500-50 mcg/dose blister with device 1 inh inhalation BID Qty: 180 3RF fluticasone propionate 50 mcg/actuation spray,suspension See Rx Instructions .ROUTE .COMPLEX Qty: 96 3RF Dose Instruction: SHAKE LIQUID AND USE 2 SPRAYS IN EACH NOSTRIL TWICE DAILY Rx Instructions: SHAKE LIQUID AND USE 2 SPRAYS IN EACH NOSTRIL TWICE DAILY trazodone 50 mg tablet See Rx Instructions .ROUTE .COMPLEX Qty: 5 2RF Dose Instruction: TAKE 1 TABLET BY MOUTH DAILY Rx Instructions: TAKE 1 TABLET BY MOUTH DAILY furosemide 40 mg tablet See Rx Instructions .ROUTE .COMPLEX Qty: 90 3RF Dose Instruction: TAKE 1 TABLET BY MOUTH DAILY Rx Instructions: TAKE 1 TABLET BY MOUTH DAILY melatonin 10 mg Tablet 10 mg PO BEDTIME Colace 100 mg capsule 200 mg PO BEDTIME PRN (Reason: Constipation) omega 6-dyh-nwv-fish oil [Fish Oil] 300-1,000 mg Capsule 1 cap PO DAILY montelukast 10 mg tablet 10 mg PO BEDTIME acetaminophen 650 mg Tablet Extended Release 1,300 mg PO Q8H PRN (Reason: Pain) baclofen 10 mg tablet 10 mg PO TID Hold Instructions: Resume on 07/15/24. furosemide 20 mg tablet 20 mg PO DAILY PRN (Reason: Edema) Discharge Orders: Discharge ED (Routine); Ordered 08/14/24 Ordered By: Pedro Poole Referrals: Venancio Mota MD [Primary Care Provider] - 1-3 days Patient Instructions: Epistaxis - Adult Activity Restrictions/Additional Instructions: A Rhino Rocket was placed in your left naris and this stopped the bleeding. Please leave this in until tomorrow sometime. Please note when this is removed you have a small chance of a rebleeding and have to be placed back. If this happens please feel free to return to the ER. Coding Level of Care Code ED Regional Geodetic Advisor for Lillian Yang
[2024-08-14 16:07] VITALS: BP 125/68; PULSE 75; O2SAT 99
== END 2024-08-14 16:09 | disposition home or self-care (01) ==
PROVIDERS: Emergency Provider Emergency Medicine; PCP Family Medicine
DX: R04.0 Epistaxis (principal); Z79.82 Long term (current) use of aspirin; Z79.02 Long term (current) use of antithrombotics/antiplatelets; Z95.1 Presence of aortocoronary bypass graft; I25.10 Atherosclerotic heart disease of native coronary artery without angina pectoris; I25.2 Old myocardial infarction; J44.9 Chronic obstructive pulmonary disease, unspecified; I10 Essential (primary) hypertension
CPT/HCPCS: 30901; 99282

== ENCOUNTER 2024-08-18 11:06 | Outpatient (CLI) | payer MEDICARE, MEDICAID, SELFPAY ==
--- NOTE | 2024-08-18 11:14 | XRR_ITS ---
PROCEDURE INFORMATION: Exam: XR Chest Exam date and time: 08/18/2024 11:22 AM Age: 69 years old Clinical indication: Cough; Prior surgery; Surgery date: 6+ months; Surgery type: Cabg, right shoulder replacement TECHNIQUE: Imaging protocol: Radiologic exam of the chest. Views: 2 views. COMPARISON: CT angio chest PE protcl [id number] 07/03/2024 1:30 PM FINDINGS: Lungs: Mild patchy airspace opacities in the bilateral lung bases. Pleural spaces: No large pleural effusion. No distinct pneumothorax. Heart/Mediastinum: Cardiomediastinal silhouette is midline and stable in size. Bones/joints: Postsurgical changes of prior median sternotomy. Partially imaged right shoulder arthroplasty. XR/XR chest 2V* [id number] IMPRESSION: Mild patchy airspace opacities in the bilateral lung bases. This may correspond with nodular opacities and scarring seen on CTA chest 07/03/2024. Recommend further evaluation with noncontrast CT chest.
== END 2024-08-18 11:07 | disposition home or self-care (01) ==
LOC: RAD 11:09
PROVIDERS: PCP Family Medicine; Visit Provider Family Medicine
DX: R06.00 Dyspnea, unspecified (principal); R91.8 Other nonspecific abnormal finding of lung field
CPT/HCPCS: 71046

== ENCOUNTER 2024-08-31 13:53 | Outpatient (CLI) | payer MEDICARE, SELFPAY ==
--- NOTE | 2024-08-31 13:59 | XR_ITS ---
WS: [id number] Exam: XR chest 2V* [id number] Date/Time of Exam: 08/31/2024 2:01 PM Reason For Exam: cough Comparison 08/18/2024. New patchy infiltrate in the RIGHT lower lung zone suggest pneumonia. The lungs are otherwise clear a nd hyperinflated. Normal heart size. Signs of previous CABG surgery. Bony structures are intact. RIGH T reverse shoulder prosthesis. XR/XR chest 2V* [id number] IMPRESSION: 1. New infiltrate in the RIGHT lower lung zone suggesting active pneumonia. 2. Marked pulmonary hyperinflation indicating obstructive lung disease.
== END 2024-08-31 13:54 | disposition home or self-care (01) ==
LOC: RAD 13:56
PROVIDERS: PCP Family Medicine; Visit Provider Family Medicine
DX: J18.1 Lobar pneumonia, unspecified organism (principal); J98.4 Other disorders of lung
CPT/HCPCS: 71046; 83880; 85025; 86140; 87070; 87205

== ENCOUNTER 2024-09-15 10:01 | Outpatient (CLI) | payer MEDICARE, SELFPAY ==
--- NOTE | 2024-09-15 10:11 | XRR_ITS ---
PROCEDURE INFORMATION: Exam: XR Left Hip Exam date and time: 09/15/2024 10:30 AM Age: 69 years old Clinical indication: Pain and injury or trauma; Fall; Blunt trauma (contusions or hematomas); Hip pain; Left hip TECHNIQUE: Imaging protocol: Radiologic exam of the left hip. Views: 2 or 3 views hip with pelvis when performed. COMPARISON: CT angio abdomen pelvis [id number] 06/08/2020 4:46 PM FINDINGS: Bones/joints: No acute fracture. Degenerative changes are noted involving the left hip. Soft tissues: Unremarkable. XR/XR hip LT 2-3V wo/w pel* [id number] IMPRESSION: No acute bony abnormality. If symptoms persist, consider repeat plain films in 5-7 days. If there is clinical concern for internal derangement, then consider further evaluation with MRI, if MRI is clinically safe to obtain.
== END 2024-09-15 10:02 | disposition home or self-care (01) ==
LOC: RAD 10:02
PROVIDERS: PCP Family Medicine; Visit Provider Family Medicine
DX: M16.12 Unilateral primary osteoarthritis, left hip (principal); M25.552 Pain in left hip; W19.XXXA Unspecified fall, initial encounter
CPT/HCPCS: 73502

== ENCOUNTER → 2024-10-01 11:14 | Outpatient (BNVA) | payer MEDICARE, SELFPAY | PROVIDERS: PCP Family Medicine; Visit Provider Student in an Organized Health Care Education/Training Program | DX: Z12.11 Encounter for screening for malignant neoplasm of colon (principal) | CPT/HCPCS: 99024; 99204 ==

== ENCOUNTER 2024-10-09 11:43 | Inpatient (IN) | payer MEDICARE, SELFPAY ==
[2024-10-09] VITALS (9 sets, daily range): BP systolic 101–125; BP diastolic 65–83; PULSE 75–94; RESP 16–21; TEMP 36.7; O2SAT 92–98; BMI 27.2
--- NOTE | 2024-10-09 11:48 | ECG_ITS ---
[facility] Test Date: 2024-10-09 Pat Name: Rebecca Coombs Department: Room: Gender: Female Glost Tile Sorter: : 1955 Requested By: Yary Correa Order Number: [id number] Vargas MD: Kari Osullivan M.D. Measurements Intervals [place] Rate: 90 P: 75 ME: 182 QRS: 42 QRSD: 98 T: 92 QT: 372 QTc: 456 Interpretive Statements SINUS RHYTHM ST elevation with ME depression, especially in the inferior leads. Consider clinical scenario, query pericarditis Compared to ECG 07/03/2024 11:37:06 Ventricular premature complex(es) no longer present Electronically Signed On 10-10-2024 16:00:44 MUSICAL ENGINEER by Kari Osullivan M.D. [email or web address]
--- NOTE | 2024-10-09 11:48 | XR_ITS ---
WS: [id number] XR chest 1V portable [id number] REASON FOR EXAM: Shortness of breath FINDINGS: Previous sternotomy with aortic coronary artery bypass surgery. The chest was relatively normal on 08/18/2024. On 08/31/2024 reticular interstitial and groundglass kelton g opacities were noted in both lower lung kothari more prominent on the right. At this time the lung o pacities in the lower lung kothari appear more prominent. The findings are most compatible with conges tive heart failure although a pneumonitis is not excluded. XR/XR chest 1V portable [id number] IMPRESSION: Compared to the most recent previous examination and appears that the lower kelton g field opacities persist and possibly have progressed.
--- NOTE | 2024-10-09 11:55 | W.ED.SOB ---
HPI - SOB/Dyspnea General: Chief Complaint: Shortness of Breath/Dyspnea Stated Complaint: SOB Time Seen by Provider: 10/09/24 11:46 History of Present Illness: HPI Narrative: 69-year-old female with history of COPD, coronary artery disease status post CABG and stents, congestive heart failure and hypertension who presents to the emergency room with shortness of breath. She says this started over the last day or so. She says she choked on a [place] alert at some point and she also sprayed some goss spray both of which she thinks may have contributed to this. She has quite a bit of wheezing on exam. Her oxygen saturations are in the upper 80s and low 90s on room air. She is not on oxygen at home. She has had increased cough. No chest pain. No abdominal pain. No nausea or vomiting. No lower extremity swelling. No known fevers. Later she mention she had a fall earlier in the week and she is having worsening low back pain. She says it is chronic but now it is excruciating. No saddle numbness, no urinary retention or incontinence, no focal motor deficit, no sensory deficit. Related Data Home Medications Medication Instructions Recorded Confirmed magnesium 250 mg tablet 250 mg PO QAM 12/08/19 10/09/24 multivitamin (Daily Multi-Vitamin 1 tab PO QAM 12/08/19 10/09/24 tablet) aspirin 81 mg tablet,delayed 81 mg PO QAM 08/30/20 10/09/24 release (Adult Aspirin Regimen) cholecalciferol (vitamin D3) 50 2,000 unit PO QAM 06/01/21 10/09/24 mcg (2,000 unit) tablet melatonin 10 mg tablet 10 mg PO BEDTIME Sleep 01/09/22 10/09/24 docusate sodium 100 mg capsule 200 mg PO BEDTIME PRN Constipation 05/08/22 10/09/24 (Colace) omega 9-vxl-npu-fish oil 300 1 cap PO DAILY 05/01/23 10/09/24 mg-1,000 mg capsule (Fish Oil) ascorbate calcium (vitamin C) 500 500 mg PO QAM 05/24/23 10/09/24 mg tablet acetaminophen 650 mg 1,300 mg PO Q8H PRN Pain 04/02/24 10/09/24 tablet,extended release baclofen 10 mg tablet 10 mg PO TID spasms 07/03/24 10/09/24 fluticasone propionate 50 2 spray intranasal BID 10/09/24 10/09/24 mcg/actuation nasal spray,suspension furosemide 40 mg tablet 40 mg PO QAM 10/09/24 10/09/24 montelukast 10 mg tablet 10 mg PO BEDTIME 10/09/24 10/09/24 Previous Rx's Medication Instructions Recorded clopidogrel 75 mg tablet (Plavix) 75 mg PO QAM #90 tabs 08/08/23 ipratropium 0.5 mg-albuterol 3 mg 3 ml inhalation TID PRN Shortness 09/02/23 (2.5 mg base)/3 mL nebulization Of Breath #180 mL soln omeprazole 20 mg capsule,delayed 20 mg PO BID #180 caps 11/12/23 release ranolazine 1,000 mg 1,000 mg PO BID #180 tabs 12/18/23 tablet,extended release,12 hr tranylcypromine 10 mg tablet 20 mg (2 x 10 mg) PO BID #120 tabs 03/27/24 (Parnate) nystatin 100,000 unit/mL oral 100,000 unit buccal DAILY #200 mL 04/21/24 suspension potassium chloride 20 mEq 20 meq PO QAM #90 tabs 04/28/24 tablet,extended release(part/cryst) topiramate 50 mg tablet 50 mg PO BID pain 30 days #60 tabs 04/28/24 alprazolam 1 mg tablet (Xanax) 1 mg PO TID #90 tabs 05/20/24 fluticasone 500 mcg-salmeterol 50 1 inh inhalation BID #180 ea 06/23/24 mcg/dose blistr powdr for inhalation (Wixela Inhub) carvedilol 3.125 mg tablet 3.125 mg PO BID #60 tabs 07/14/24 nitroglycerin 0.4 mg sublingual 0.4 mg sublingual Q5M PRN chest 07/16/24 tablet pain #30 tabs lovastatin 20 mg tablet 20 mg PO BEDTIME #90 tabs 08/25/24 fexofenadine 180 mg tablet 180 mg PO Q24H #30 tabs 09/14/24 Allergies Allergy/AdvReac Type Severity Reaction Status Date / Time pregabalin [From Lyrica] Allergy Severe dizziness Verified 10/01/24 11:17 codeine AdvReac Unknown Unknown Verified 10/01/24 11:17 gabapentin [From Neurontin] AdvReac Unknown dizziness Verified 10/01/24 11:17 oxycodone [From OxyContin] AdvReac Unknown Unknown Verified 10/01/24 11:17 Okpeywl-XPK-KvX Reductase AdvReac Unknown muscle Verified 10/01/24 11:17 Inhibitor aches [Stjuuew-Ueb-Rhn Reductase Inhibitor] tramadol AdvReac Unknown rash Verified 10/01/24 11:17 Review of Systems Narrative: Constitutional symptoms: Negative except as documented in HPI. Skin symptoms: Negative except as documented in HPI. Eye symptoms: Negative except as documented in HPI. ENMT symptoms: Negative except as documented in HPI. Respiratory symptoms: Negative except as documented in HPI. Cardiovascular symptoms: Negative except as documented in HPI. Gastrointestinal symptoms: Negative except as documented in HPI. Genitourinary symptoms: Negative except as documented in HPI. Musculoskeletal symptoms: Negative except as documented in HPI. Neurologic symptoms: Negative except as documented in HPI. Psychiatric symptoms: Negative except as documented in HPI. Endocrine symptoms: Negative except as documented in HPI. 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 Status post reverse total arthroplasty of right shoulder Status post laparoscopic cholecystectomy 01/01/2020 S/P right hemicolectomy 01/01/2020 H/O cardiac catheterization Status post colonoscopy S/p bilateral carpal tunnel release H/O rotator cuff surgery History of right shoulder replacement S/P CABG x 4 Hx of appendectomy Family History Daughter Diabetes Sister Diabetes x3 Brother Diabetes Son Hypertension Family/Other Thyroid disease granddaughter Mother Heart disease Denies family history of Colon cancer Ovarian cancer Clotting disorder Hyperlipidemia Breast cancer Anesthesia complication Bleeding disorder Uterine cancer Stroke Social History Smoking and tobacco/nicotine status: former use of tobacco/nicotine Physical Exam Narrative: EXAM NARRATIVE: General: Alert, no acute distress. Skin: Warm, dry. Head: Normocephalic, atraumatic. Neck: Supple, trachea midline. Eye: Extraocular movements are intact. Ears, nose, mouth and throat: Oral mucosa moist. Cardiovascular: Regular rate and rhythm, Normal peripheral perfusion. Respiratory: coarse, scattered wheeze, mild increased wob. tachypnea, breath sounds are equal, Symmetrical chest wall expansion. Gastrointestinal: Soft, Nontender, Non distended, Normal bowel sounds. Musculoskeletal: Normal ROM, no deformity. Neurological: Alert and oriented to person, place, time, and situation, No focal neurological deficit observed. Psychiatric: Cooperative, appropriate mood & affect. Course Vital Signs: Vital signs: Vital Signs Temperature 98.1 F 10/09/24 11:47 Pulse Rate 85 10/09/24 12:35 Respiratory Rate 18 10/09/24 12:35 Blood Pressure 101/65 10/09/24 12:35 Pulse Oximetry 97 10/09/24 12:35 Oxygen Delivery Me thod Nasal Cannula 10/09/24 12:35 Oxygen Flow Rate 2 10/09/24 12:35 MDM - SOB/Dyspnea Medical Decision Making Differential diagnosis for patient with shortness of breath includes but is not limited to and based on the above HPI, review of systems and physical exam: Pneumonia. Bronchitis. Asthma or COPD with acute exacerbation. Acute coronary syndrome / MA. Pulmonary embolism. Anxiety. Congestive heart failure. Viral infections including influenza and Covid-19. Atrial fibrillation. Anxiety. Pleural effusion. Pneumothorax. Orders placed to evaluate differential diagnosis based on the above differential, HPI and physical exam EKG: Time 1148. Rate 90. Normal sinus rhythm, some Q waves in the inferior leads. These were present in July., no ectopy, normal NH & QRS intervals, This was reviewed and interpreted by myself the ER physician at 1152. Repeat EKG: Time 1355. Rate 81. Normal sinus rhythm, Q waves as previously, no ectopy, normal NH & QRS intervals, This was reviewed and interpreted by myself the ER physician at 1400. No significant changes from previous EKG in the emergency room today. Chest x-ray: Infiltrates in the right lower lobe. This seems similar to previous chest x-ray but may have progressed. CT scan was ordered to further evaluate. This was reviewed and interpreted by myself the emergency room physician. I also reviewed the radiology report. CT of the chest without contrast: Similar appearing but progressed patchy tree-in-bud type infiltrates worse in the right middle lobe and the right lower lobe. This is consistent with exam and history for pneumonia. This was reviewed and interpreted by myself the emergency room physician. I also reviewed the radiology report. Lab Review: Laboratory results were reviewed and interpreted by myself the emergency room physician. Patient has some leukocytosis with a white count of 13,000. Hemoglobin stable 11. BUN/creatinine up slightly at 12 and 1.0. Her baseline creatinine is around 0.7. proBNP is 3000 today. She ranges between 507,000 in the past. RSV, flu and COVID are negative. Initial troponin is 116 repeat is 108. Nonsignificant delta. I reviewed the patient's medical record. Reexamination: Patient remained stable. Patient requiring 2 L nasal cannula. No increased work of breathing at this time. No altered mental status. No focal motor deficits. She does inform me of a fall she had and having low back pain so a CT scan was ordered. Consultation: I spoke with Dr. Hernandez who is on-call for the hospitalist service who agrees to admission after the CT scan is read of the chest to ensure she does not have any signs of foreign body in her lungs. This was reviewed and interpreted by myself the emergency room physician. I also reviewed the radiology report. Assessment and plan: Pneumonia COPD with acute exacerbation Hypoxemia Fall Back pain Chronic hypercapnic respiratory failure Elevated troponin ?IV doxycycline, IV Solu-Medrol and 2 updrafts were given in the emergency room. ?She does not have any confusion and is fairly well compensated some not placing her on a BiPAP at this time. -I discussed the patient with the hospitalist on-call who is admitting the patient. - Discussed findings and plan with patient. Answered any questions. - All laboratory values were reviewed and interpreted personally by myself, the ER physician - All imaging was reviewed and interpreted personally by myself, the ER physician. - Evaluation and treatment of this problem were appropriate in the emergency setting Lab Data 10/09/24 12:02 10/09/24 12:02 Labs/Radiology: Radiology Impressions Chest X-Ray 10/09/24 11:48 IMPRESSION: Compared to the most recent previous examination and appears that the lower lung field opacities persist and possibly have progressed. Lumbar Spine CT 10/09/24 13:02 IMPRESSION: 1. Abdominal aortic aneurysm measuring 3.5 x 3.6 cm. This is increased in size since 2019 where it measured approximately 3.2 x 3.1 cm. Recommend follow-up with CTA abdomen/pelvis. 2. Multilevel central canal stenosis described above 3. Slight compression superior endplate L4 appears new since 05-24. Recommend correlation for low back pain. Chest CT 10/09/24 13:03 IMPRESSION: 1. Similar appearing but progressed patchy tree-in-bud type infiltrates worse in the RIGHT middle lobe and RIGHT lower lobe. Recommend correlation for pneumonia. 2. No other significant interval changes. Laboratory Results WBC 13.23 10^3/uL (3.29-11.43) H 10/09/24 12:02 RBC 3.79 10^6/uL (3.85-5.65) L 10/09/24 12:02 Hgb 11.10 g/dL (11.27-16.99) L 10/09/24 12:02 Hct 37.0 % (36-47) 10/09/24 12:02 MCV 97.6 fl (85-98) 10/09/24 12:02 MCH 29.3 pg (27-33) 10/09/24 12:02 MCHC 30.0 g/dL (30-55) 10/09/24 12:02 RDW 14.6 % (12.1-15.1) 10/09/24 12:02 Plt Count 360 10^3/cmm (157-399) 10/09/24 12:02 MPV 9.5 fL (7.4-10.4) 10/09/24 12:02 Neut % (Auto) 85.9 % 10/09/24 12:02 Lymph % (Auto) 5.3 % 10/09/24 12:02 Traverse % (Auto) 7.6 % 10/09/24 12:02 Eos % (Auto) 0.2 % 10/09/24 12:02 Baso % (Auto) 0.5 % 10/09/24 12:02 Neut # (Auto) 11.35 10^3/uL (1.8-7.7) H 10/09/24 12:02 Lymph # (Auto) 0.7 10^3/uL (0.8-4.8) L 10/09/24 12:02 Traverse # (Auto) 1.0 10^3/uL (0.2-0.9) H 10/09/24 12:02 Eos # (Auto) 0.0 10^3/uL (0.0-0.8) 10/09/24 12:02 Baso # (Auto) 0.1 10^3/uL (0.0-0.1) 10/09/24 12:02 Nucleated RBC % (auto) 0 % 10/09/24 12:02 Nucleated RBCs # 0.0 /100WBC 10/09/24 12:02 Specimen Type Arterial 10/09/24 12:12 Sample Site Radial, left 10/09/24 12:12 ABG pH 7.33 (7.35-7.45) L 10/09/24 12:12 ABG pCO2 41.9 mmHg (35-45) 10/09/24 12:12 ABG pO2 59.7 mmHg (80.0-100.0) L 10/09/24 12:12 ABG PO2/FiO2 Ratio 284 10/09/24 12:12 ABG HCO3 22.1 mmol/L (22-26) 10/09/24 12:12 ABG O2 Saturation 91.6 10/09/24 12:12 ABG Base Excess -3.7 mmol/L (-2.0-2.0) L 10/09/24 12:12 Elmer Test Pos 10/09/24 12:12 A-a O2 Gradient 5.1 mmHg (5-10) 10/09/24 12:12 Hematocrit 33.1 % (37-47) L 10/09/24 12:12 Hgb O2 Saturation 90.7 % (95-100) L 10/09/24 12:12 Carboxyhemoglobin 1.0 %THgb (0.4-20.1) 10/09/24 12:12 Methemoglobin < 0.0 % (0.4-1.5) L 10/09/24 12:12 Total Hemoglobin 10.8 g/dL (12-16) L 10/09/24 12:12 Sodium 141.0 mmol/L (131-143) 10/09/24 12:12 Potassium 3.2 mmol/L (3.5-5.0) L 10/09/24 12:12 Glucose 101.0 mg/dL (70-115) 10/09/24 12:12 Ionized Calcium 1.3 mmol/L (1.1-1.4) 10/09/24 12:12 O2 Delivery Device Room air 10/09/24 12:12 FiO2 21.0 % 10/09/24 12:12 Machine Adjuster Leader ID Cak 10/09/24 12:12 Sodium 141 mmol/L (136-145) 10/09/24 12:02 Potassium 3.4 mmol/L (3.5-5.1) L 10/09/24 12:02 Chloride 106 mmol/L (98-107) 10/09/24 12:02 Carbon Dioxide 25 mmol/L (22-29) 10/09/24 12:02 Anion Gap 13.4 (5-19) 10/09/24 12:02 BUN 12 mg/dL (8-23) 10/09/24 12:02 Creatinine 1.0 mg/dL (0.5-0.9) H 10/09/24 12:02 GFR Calculation 54.8 mL/min (90-130) L 10/09/24 12:02 Glucose 103 mg/dL (65-115) 10/09/24 12:02 Calculated Osmolality 292 mOsm/kg (285-295) 10/09/24 12:02 Lactic Acid 1.0 mmol/L (0.5-2.2) 10/09/24 12:02 Calcium 8.5 mg/dL (8.5-10.5) 10/09/24 12:02 Total Bilirubin 0.3 mg/dL (0.15-1.2) 10/09/24 12:02 AST 161 U/L (0-32) H 10/09/24 12:02 ALT 64 U/L (0-33) H 10/09/24 12:02 Alkaline Phosphatase 109 U/L (35-105) H 10/09/24 12:02 Troponin T Baseline 116 ng/L (0-10) H* 10/09/24 12:02 Troponin T 120 Minute 108.7 ng/L (0-10) H 10/09/24 13:45 Delta Troponin T -7.3 ABS# (0-10) L 10/09/24 13:45 NT-Pro-B Natriuret Pep 3213 pg/mL (0-125) H 10/09/24 12:02 Total Protein 6.4 g/dL (6.6-8.7) L 10/09/24 12:02 Albumin 3.8 g/dL (3.5-5.2) 10/09/24 12:02 Globulin 2.6 g/dL (1.3-4.6) 10/09/24 12:02 Coronavirus (PCR) Negative (Negative) 10/09/24 12:03 Influenza A (PCR) Negative (Negative) 10/09/24 12:03 Influenza Type B (PCR) Negative (Negative) 10/09/24 12:03 RSV (PCR) Negative (Negative) 10/09/24 12:03 All radiology interpretation(s) finalized by discharge Discharge Plan Discharge Patient Disposition: Admitted As Inpatient Clinical Impression: Acute exacerbation of chronic obstructive airways disease, Hypoxemia, Elevated troponin, Pneumonia, Fall, Low back pain, Vertebral compression fracture Condition: Stable Coding Level of Care Code ED Early Morning for Lillian Yang
[2024-10-09] MEDS: albuterol 2.5 mg/3 mL Neb INHALATION (12:10)
[2024-10-09] MEDS: ipratropium-albuterol 3 mL Neb INHALATION ×2 (12:11→21:20)
[2024-10-09 12:14] LABS: Basophils # 0.1 10^3/uL (0.0-0.1); Basophils % 0.5 %; Eosinophils % 0.2 %; Lymphocytes # 0.7 10^3/uL (0.8-4.8); Lymphocytes % 5.3 %; Mean Corpuscular Hemoglobin 29.3 pg (27-33); Mean Corpuscular Volume 97.6 fl (85-98); Mean Platelet Volume 9.5 fL (7.4-10.4); Monocytes % 7.6 %; Neutrophils # 11.35 10^3/uL (1.8-7.7); Neutrophils % 85.9 %; Nucleated Red Blood Cells % 0 %; Platelet Count 360 10^3/cmm (157-399); Red Blood Count 3.79 10^6/uL (3.85-5.65); Red Cell Distribution Width 14.6 % (12.1-15.1); White Blood Count 13.23 10^3/uL (3.29-11.43)
[2024-10-09 12:23] LABS: ABG PCO2 41.9 mmHg (35-45); ABG PH Result 7.33 (7.35-7.45); Alveolar-Arterial Oxygen Gradi 5.1 mmHg (5-10); Arterial Blood Gas Hematocrit 33.1 % (37-47); Base Excess ABG -3.7 mmol/L (-2.0-2.0); Blood Gas Allen Test Pos; Blood Gas Operator Identificat CAK; Blood Gas Sample Site Radial, left; Blood Gas Sample Type Arterial; HCO3 ABG 22.1 mmol/L (22-26); HGB O2 Sat 90.7 % (95-100); Ionized Calcium Level - ABG 1.3 mmol/L (1.1-1.4); Methemoglobin < 0.0 % (0.4-1.5); Oxygen Device ROOM AIR; Oxygen Saturation ABG 91.6; PO2 ABG 59.7 mmHg (80.0-100.0); PO2 FiO2 Ratio Arterial Blood 284; Potassium Level - ABG 3.2 mmol/L (3.5-5.0); Total Hemoglobin 10.8 g/dL (12-16)
[2024-10-09] MEDS: methylPREDNISolone sod succ 125 mg/2 mL INJ IVP (12:31)
[2024-10-09 12:40] LABS: Alanine Aminotransferase 64 U/L (0-33); Albumin Level 3.8 g/dL (3.5-5.2); Alkaline Phosphatase 109 U/L (35-105); Anion Gap 13.4 (5-19); Aspartate Amino Transferase 161 U/L (0-32); Blood Urea Nitrogen 12 mg/dL (8-23); Calcium 8.5 mg/dL (8.5-10.5); Carbon Dioxide 25 mmol/L (22-29); Chloride 106 mmol/L (98-107); Globulin 2.6 g/dL (1.3-4.6); Glomerular Filtration Rate 54.8 mL/min (90-130); Glucose 103 mg/dL (65-115); NT Pro B Type Natriuretic Pept 3213 pg/mL (0-125); Osmolality Calculated 292 mOsm/kg (285-295); Potassium 3.4 mmol/L (3.5-5.1); Sodium 141 mmol/L (136-145); Total Bilirubin 0.3 mg/dL (0.15-1.2); Total Protein 6.4 g/dL (6.6-8.7)
[2024-10-09 12:47] LABS: Troponin(5th) Baseline 116 ng/L (0-10)
--- NOTE | 2024-10-09 13:02 | CT_ITS ---
WS: [id number] CT LUMBAR SPINE TECHNIQUE: Noncontrast CT of the lumbar spine with coronal and sagittal reformatted images. CLINICAL INFORMATION: low back pain COMPARISON: MRI 05/03/2023 DLP: 745.[address] scans at [facility] use at least one of these dose optimization techniques: automated e xposure control; mA and/or kV adjustment per patient size (includes targeted exams where dose is matc hed to clinical indication); or iterative reconstruction. FINDINGS: Osteopenia. Disc space narrowing throughout the lumbar spine. Disc bulging is similar to the prior MR I 05/03/2023 Mild compression superior endplate L4 appears new since the prior MRI. Recommend correlation with low back pain. L1-L2: Normal. L2-L3: Mild annular bulging. Mild central canal stenosis. Moderate facet arthropathy. L3-L4: Mild disc bulging with moderate central canal stenosis. Moderate facet arthropathy with ligame ntum flavum hypertrophy. L4-L5: Mild disc bulging with moderate central canal stenosis. Impingement on the RIGHT greater than LEFT subarticular recess. Advanced facet arthropathy ligamentum flavum hypertrophy. Moderate RIGHT gr eater than LEFT foraminal narrowing. L5-S1: Mild annular bulging. Advanced facet arthropathy. Slight contact of the S1 nerve roots. Forame n are patent. Visualized pelvic bony structures: Normal. Paravertebral soft tissues: Normal. Increasing abdominal aortic aneurysm described below CT/CT lumbar spine wo con* [id number] IMPRESSION: 1. Abdominal aortic aneurysm measuring 3.5 x 3.6 cm. This is increased in size since 2019 where it measured approximately 3.2 x 3.1 cm. Recommend follow-up w ith CTA abdomen/pelvis. 2. Multilevel central canal stenosis described above 3. Slight compression superior endplate L4 appears new since 05-24. Recommend c orrelation for low back pain.
--- NOTE | 2024-10-09 13:03 | CT_ITS ---
WS: [id number] CT CHEST TECHNIQUE: Noncontrast CT of the chest with coronal and sagittal reformatted images. CLINICAL INFORMATION: abnormal chest xray COMPARISON: CTA 07/03/2024 DLP: 466.[address] scans at [facility] use at least one of these dose optimization techniques: automated e xposure control; mA and/or kV adjustment per patient size (includes targeted exams where dose is matc hed to clinical indication); or iterative reconstruction. FINDINGS: Moderate chronic emphysematous changes. Patchy tree-in-bud nodular infiltrates similar in appearance to the prior examination 07/03/2024. Infiltrates worse in the RIGHT middle lobe and RIGHT lower lobe sl ightly progressed compared to 07/03/2024. Few hazy groundglass infiltrates LEFT lower lobe. This is sim ilar to previous. Prior sternotomy with CABG. Stable slightly ectatic ascending thoracic aorta. Coronary calcification. Multinodular thyroid. RIGHT TSA. Cholecystectomy clips. Moderate thoracic kyphosis. CT/CT chest wo con [id number] IMPRESSION: 1. Similar appearing but progressed patchy tree-in-bud type infiltrates worse in the RIGHT middle lobe and RIGHT lower lobe. Recommend correlation for pneumo cheryl. 2. No other significant interval changes.
[2024-10-09 13:08] LABS: Covid PCR NEGATIVE (Negative); Influenza A NEGATIVE (Negative); Influenza B NEGATIVE (Negative); Respiratory Syncytial Virus Ce NEGATIVE (Negative)
[2024-10-09] MEDS: doxycycline 100 MG in sodium chloride 0.9% (plus) 100 ML IV (13:50)
--- NOTE | 2024-10-09 13:55 | ECG_ITS ---
[employer] Test Date: 2024-10-09 Pat Name: Rebecca Coombs Department: Room: Gender: Female Synthetic Resin Operator: : [id number] Requested By: Yary Correa Order Number: [id number] Alicia MD: Kari Osullivan M.D. Measurements Intervals Gilliam Rate: 81 P: 67 KS: 193 QRS: 39 QRSD: 97 T: 94 QT: 395 QTc: 460 Interpretive Statements [address]INUS RHYTHM [address] elevation in the inferior leads, possible acute PA, for clinical correlation. Compared to ECG 10/09/2024 11:48:02 No significant changes Electronically Signed On 10-10-2024 16:06:26 DESK INTERVIEWER by Kari Osullivan M.D. [email or web address]
[2024-10-09 14:30] LABS: Troponin 5 2HR 108.7 ng/L (0-10); Troponin 5 2HR Delta -7.3 ABS# (0-10)
--- NOTE | 2024-10-09 15:55 | P.HP_ITS ---
Providers/Chief Complaint 2 Primary Care Provider: Venancio Mota MD Chief Complaint: SOB History of Present Illness Pleasant 69-year-old lady with history of COPD, recurrent pneumonia, not normally on oxygen, with history of hiatal hernia, CAD, CABG, stenting, other medical problems, rolled out of bed following up to the floor on Saturday having had some back pain since then alongside sustaining a large skin tear over the left forearm, yesterday started coughing after choking up while eating some twizzlers. Since then she has been more short of breath, with productive cough, feeling weak. On presentation to ER found to be hypoxic, especially with exertion, newly requiring 2-1/2 L nasal cannula oxygen. Noted with leukocytosis 13.23. ABG 7.33/41.9/59.7. As well as with noted troponin elevation, baseline of 116. As well as new liver primary abnormality, AST of 161, ALT 64, alk phos 109. Additional imaging in ER included chest x-ray, chest CT, which showed similar appearing but progressed patchy tree-in-bud type infiltrates worse on the right middle lobe and right lower lobe. As well as CT lumbar spine with finding of abdominal aortic aneurysm with some enlargement 3.5 x 3.6 cm compared to prior 3.2 x 3.1 cm in May. Multilevel central canal stenosis described above as well as slight compression superior endplate of L4. New since May. Review of Systems 2 Const: Denies: fever(s), chills, body aches or malaise ENMT: Denies: throat pain Card: Denies: chest pain, edema, pre-syncope or dyspnea on exertion Resp: Reports: dyspnea and productive cough; Denies: hemoptysis GI: Denies: abdominal pain, nausea, vomiting, diarrhea, constipation, hematochezia or melena : Denies: flank pain, urinary frequency or hematuria Musc: Reports: back pain; Denies: joint swelling or joint redness Skin/Breast: Denies: rash or new lesions Medications/Allergies Home Medications Medication Instructions Recorded Confirmed Last Taken Type magnesium 250 mg tablet 250 mg PO QAM 12/08/19 10/09/24 10/09/24 History multivitamin (Daily Multi-Vitamin 1 tab PO QAM 12/08/19 10/09/24 10/09/24 History tablet) aspirin 81 mg tablet,delayed 81 mg PO QAM 08/30/20 10/09/24 10/09/24 History release (Adult Aspirin Regimen) cholecalciferol (vitamin D3) 50 2,000 unit PO QAM 06/01/21 10/09/24 10/09/24 History mcg (2,000 unit) tablet melatonin 10 mg tablet 10 mg PO BEDTIME Sleep 01/09/22 10/09/24 10/08/24 History docusate sodium 100 mg capsule 200 mg PO BEDTIME PRN Constipation 05/08/22 10/09/24 04/06/24 History (Colace) omega 3-jta-yrg-fish oil 300 1 cap PO DAILY 05/01/23 10/09/24 10/09/24 History mg-1,000 mg capsule (Fish Oil) ascorbate calcium (vitamin C) 500 500 mg PO QAM 05/24/23 10/09/24 10/09/24 History mg tablet clopidogrel 75 mg tablet (Plavix) 75 mg PO QAM #90 tabs 08/08/23 10/09/24 10/09/24 Rx ipratropium 0.5 mg-albuterol 3 mg 3 ml inhalation TID PRN Shortness 09/02/23 10/09/24 04/06/24 Rx (2.5 mg base)/3 mL nebulization Of Breath #180 mL soln omeprazole 20 mg capsule,delayed 20 mg PO BID #180 caps 11/12/23 10/09/24 10/09/24 Rx release ranolazine 1,000 mg 1,000 mg PO BID #180 tabs 12/18/23 10/09/24 10/09/24 Rx tablet,extended release,12 hr tranylcypromine 10 mg tablet 20 mg (2 x 10 mg) PO BID #120 tabs 03/27/24 10/09/24 10/09/24 Rx (Parnate) acetaminophen 650 mg 1,300 mg PO Q8H PRN Pain 04/02/24 10/09/24 04/07/24 History tablet,extended release nystatin 100,000 unit/mL oral 100,000 unit buccal DAILY #200 mL 04/21/24 10/09/24 10/09/24 Rx suspension potassium chloride 20 mEq 20 meq PO QAM #90 tabs 04/28/24 10/09/24 10/09/24 Rx tablet,extended release(part/cryst) topiramate 50 mg tablet 50 mg PO BID pain 30 days #60 tabs 04/28/24 10/09/24 10/09/24 Rx alprazolam 1 mg tablet (Xanax) 1 mg PO TID #90 tabs 05/20/24 10/09/24 10/09/24 Rx fluticasone 500 mcg-salmeterol 50 1 inh inhalation BID #180 ea 06/23/24 10/09/24 10/09/24 Rx mcg/dose blistr powdr for inhalation (Wixela Inhub) baclofen 10 mg tablet 10 mg PO TID spasms 07/03/24 10/09/24 10/09/24 History carvedilol 3.125 mg tablet 3.125 mg PO BID #60 tabs 07/14/24 10/09/24 10/09/24 Rx nitroglycerin 0.4 mg sublingual 0.4 mg sublingual Q5M PRN chest 07/16/24 10/09/24 Unknown Rx tablet pain #30 tabs lovastatin 20 mg tablet 20 mg PO BEDTIME #90 tabs 08/25/24 10/09/24 10/08/24 Rx fexofenadine 180 mg tablet 180 mg PO Q24H #30 tabs 09/14/24 10/09/24 10/09/24 Rx fluticasone propionate 50 2 spray intranasal BID 10/09/24 10/09/24 10/09/24 History mcg/actuation nasal spray,suspension furosemide 40 mg tablet 40 mg PO QAM 10/09/24 10/09/24 10/09/24 History montelukast 10 mg tablet 10 mg PO BEDTIME 10/09/24 10/09/24 10/08/24 History Allergies Allergy/AdvReac Type Severity Reaction Status Date / Time pregabalin [From Lyrica] Allergy Severe dizziness Verified 10/01/24 11:17 codeine AdvReac Unknown Unknown Verified 10/01/24 11:17 gabapentin [From Neurontin] AdvReac Unknown dizziness Verified 10/01/24 11:17 oxycodone [From OxyContin] AdvReac Unknown Unknown Verified 10/01/24 11:17 Mtqtgdn-ZGQ-EvH Reductase AdvReac Unknown muscle Verified 10/01/24 11:17 Inhibitor aches [Cqqycvw-Psi-Rqu Reductase Inhibitor] tramadol AdvReac Unknown rash Verified 10/01/24 11:17 PFSH Acute 2 PFSH: Medical History Psychiatric care 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 Status post reverse total arthroplasty of right shoulder Status post laparoscopic cholecystectomy 01/01/2020 S/P right hemicolectomy 01/01/2020 H/O cardiac catheterization Status post colonoscopy S/p bilateral carpal tunnel release H/O rotator cuff surgery History of right shoulder replacement S/P CABG x 4 Hx of appendectomy Family History Daughter Diabetes Sister Diabetes x3 Brother Diabetes Son Hypertension Family/Other Thyroid disease granddaughter Mother Heart disease Denies family history of Colon cancer Ovarian cancer Clotting disorder Hyperlipidemia Breast cancer Anesthesia complication Bleeding disorder Uterine cancer Stroke Social History Smoking and tobacco/nicotine status: former use of tobacco/nicotine Vitals/I&O/Wt Last Vital Signs Temp 98.1 F 10/09/24 11:47 Pulse 85 10/09/24 12:35 Resp 18 10/09/24 12:35 BP 101/65 10/09/24 12:35 Pulse Ox 97 10/09/24 12:35 O2 Del Method Nasal Cannula 10/09/24 12:35 O2 Flow Rate 2 10/09/24 12:35 10/09/24 10/09/24 10/09/24 06:59 14:59 22:59 Intake Total 100 / 100 Balance 100 / 100 Physical Exam 2 Const: COMMON NORMALS: patient oriented x3 and alert GENERAL APPEARANCE: c ooperative ORIENTATION/CONSCIOUSNESS: Yes awake HENMT: COMMON NORMALS: oropharynx normal Neck/C-Spine: COMMON NORMALS: no JVD Resp: AUSCULTATION: rhonchi and wheezes Cardio: COMMON NORMALS: no JVD, regular rhythm, S1 normal heart sound present, S2 normal heart sound present and No murmurs present (Cardio) RHYTHM: regular rhythm HEART SOUNDS: S1 normal heart sound present and S2 normal heart sound present GI: COMMON NORMALS: Normal to inspection, nondistended, normoactive bowel sounds present, Soft to palpation and non-tender PALPATION: Yes Soft to palpation Extremity: COMMON NORMALS: no joint enlargement and no pedal edema Neuro: COMMON NORMALS: patient oriented x3 and moves all extremities S ENSORIUM/ORIENTATION: Yes alert Skin: COMMON NORMALS: no rashes or lesions noted GENERAL SKIN EXAM: no rashes or lesions noted Data 10/09/24 12:02 10/09/24 12:02 A&P Assessment and plan (1) Aspiration pneumonia: Aspiration pneumonia with failure of outpatient treatment. She just completed antibiotic course with amoxicillin. Aspirated while eating some twizzlers yesterday. With new oxygen requirement 2 and half liters, hypoxemia on ABG 59.7. Not normally on oxygen. Reviewed vitals, CBC, ABG, CMP, troponin, influenza PCR, coronavirus PCR, RSV PCR, chest x-ray, chest CT, lumbar spine CT, ER note, discussed with ER provider. Noted right lower lobe pneumonia, bronchopneumonia, no foreign body/airway obstruction noted with initial consideration whether may end up needing bronchoscopy as per discussion with ER physician. Discussed with her and her daughter. Received doxycycline in ER, will broaden antibiotic coverage to Zosyn given aspiration pneumonia with leukocytosis, hypoxic, productive cough, dyspnea, lack of improvement despite outpatient oral antibiotic. Continue oxygen support. Obtain speech therapy evaluation when able. Discussed with her aspiration precautions in detail. Obtain sputum culture. Modified barium swallow evaluation due to aspiration. With COPD exacerbation: With moderate to severe exacerbation with productive cough, dyspnea, wheezing, rhonchi, new hypoxia. Will give Solu-Medrol 20 mg every 6 hours. Breathing treatments and DuoNebs scheduled and as needed. Collect sputum culture. (2) Fall: Fell after rolling out of bed. Maintain fall precautions. Up with assist. With lower back pain, lidocaine patch, Tylenol. Hydrocodone as a last resort. Discussed avoiding opiate if possible due to risks of complication. Discussed with adding safety for with her and her daughter tears to her bed, versus obtaining a hospital bed appreciate prefers not to have a hospital bed. (3) Compression fracture of L4 vertebra: Lidocaine patch. Acetaminophen as needed. Precautions. Up with assist. PT assessment when available. Also requesting case management consultation for when they are available to assist with disposition planning. (4) Elevated troponin: Troponin up to 116 baseline. Complete troponin EKG series. Reviewed EKG on my review sinus rhythm, without obvious ME. Pending official read. She has no chest pain. Does have history of coronary disease. Reviewed prior stress test from January 2023, noted large area of scar tissue from prior ME. Suspect type II ME. (5) Aortic aneurysm: CT lumbar spine with finding of abdominal aortic aneurysm with some enlargement 3.5 x 3.6 cm compared to prior 3.2 x 3.1 cm in May Will need follow-up CTA imaging. Plan Transaminitis: AST 161, ALT 64 on review. Check CK for rhabdomyolysis. Alk phos elevation: Possibly mild cholestasis minimal elevation of alk phos. Hold Lasix for now. Reassess liver parameters. Volume status. CAD: Status post CABG, continue aspirin, Plavix, statin, beta-mara. Ranolazine. Depression: Continue tranylcypromine. She brought her own. Continue home medications for other medical conditions HTN HLD: Statin Panic disorder: Request for Xanax. Home Xanax resumed. Other medical problems. Attestations 2 Medical Necessity Statement*: Admission over 2 midnights anticipated for assessment management of pneumonia, COPD exacerbation, troponin elevation in a lady with underlying CAD, additional multiple medical problems. , High MDM includes amount and/or complexity of data reviewed/ordered [ previous or external records, resulted lab(s)/test(s), ordered lab(s)/test(s), independent test interpretation and other healthcare professional discussion] as documented and High Time for a total of 80 minutes, includes reviewing past or interval history, examining/interviewing patient, placing orders, counseling patient/family/other support, communicating with other healthcare providers, documenting encounter and coordinating care Diagnoses Aspiration pneumonia J69.0 Fall W19.XXXA Compression fracture of L4 vertebra S32.040A Elevated troponin R79.89 Aortic aneurysm I71.9
--- NOTE | 2024-10-09 17:06 | PC.NURSE ---
Patient has 1-10.00 dollar bill, 2-five dollar bills, and 5-one dollar bills in her wallet at bedside. Patient wants to keep the money at bedside with her in her wallet. Explained to patient that if she keep her money at bedside the hospital will not replace it if it gets lost. Patient verbalized understanding.
--- NOTE | 2024-10-09 17:48 | ECG_ITS ---
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 Measurements Intervals [place] Rate: 80 P: 76 NH: 202 QRS: 59 QRSD: 98 T: 93 QT: 411 QTc: 477 Interpretive Statements SINUS RHYTHM ST changes, ST elevation in inferior leads with NH depression. For clinical correlation, consider pericarditis. MODERATE ST DEPRESSION [0.05+ mV ST DEPRESSION] Compared to ECG 10/09/2024 13:55:18 ST (T wave) deviation now present Electronically Signed On 10-10-2024 16:05:03 DRUM STRAIGHTENER by Kari Osullivan M.D. [id number]
[2024-10-09] MEDS: ranolazine (12HR) 500 mg Tablet 1000 MG PO (18:32)
[2024-10-09] MEDS: carvedilol 3.125 mg Tablet PO (18:32)
[2024-10-09] MEDS: methylPREDNISolone sod succ 40 mg/mL INJ 20 MG IVP (18:33)
[2024-10-09] MEDS: fluticasone nasal spray 16gm Btl 2 SPRAY INTRANASAL (18:34)
[2024-10-09] MEDS: piperacillin-tazobactam 3.375 GM in sodium chloride 0.9% (plus) 50 ML IV (18:34)
[2024-10-09] MEDS: TRANYLCYPROMINE 10 MG 20 EACH PO (18:35)
[2024-10-09] MEDS: enoxaparin 40 mg/0.4 mL Syringe SUBCUT (18:36)
[2024-10-09 18:43] LABS: Troponin 5 6HR 73.49 ng/L (0-10)
[2024-10-09 18:49] LABS: Troponin 5 6HR Delta -42.51 ng/L (0-12)
[2024-10-09] MEDS: baclofen 10 mg Tablet PO (20:11)
[2024-10-09] MEDS: atorvastatin 40 mg Tablet 20 MG PO (20:11)
[2024-10-09] MEDS: montelukast sodium 10 mg Tablet PO (20:11)
[2024-10-09] MEDS: ALPRAZolam 0.5 mg Tablet 1 MG PO (20:11)
[2024-10-09] MEDS: lidocaine 5% Patch 1 PATCH TOPICAL (20:12)
[2024-10-09] MEDS: budesonide 0.5 mg/2 mL Neb 0.25 MG INHALATION (21:19)
[2024-10-10] VITALS (16 sets, daily range): BP systolic 96–114; BP diastolic 60–66; PULSE 73–86; RESP 17–20; TEMP 36.4–36.7; O2SAT 92–97
[2024-10-10] MEDS: methylPREDNISolone sod succ 40 mg/mL INJ 20 MG IVP ×4 (00:49→17:15)
[2024-10-10] MEDS: ipratropium-albuterol 3 mL Neb INHALATION ×4 (02:11→20:35)
[2024-10-10] MEDS: piperacillin-tazobactam 3.375 GM in sodium chloride 0.9% (plus) 50 ML IV ×3 (03:02→17:16)
[2024-10-10 05:14] LABS: Basophils # 0.1 10^3/uL (0.0-0.1); Basophils % 0.4 %; Eosinophils # 0.1 10^3/uL (0.0-0.8); Eosinophils % 0.4 %; Hematocrit 30.8 % (36-47); Lymphocytes % 6.2 %; Mean Corpuscular HGB Conc 30.2 g/dL (30-55); Mean Corpuscular Hemoglobin 29.6 pg (27-33); Mean Corpuscular Volume 98.1 fl (85-98); Mean Platelet Volume 9.9 fL (7.4-10.4); Monocytes # 0.6 10^3/uL (0.2-0.9); Monocytes % 3.4 %; Neutrophils # 14.06 10^3/uL (1.8-7.7); Neutrophils % 87.8 %; Nucleated Red Blood Cells % 0 %; Platelet Count 288 10^3/cmm (157-399); Red Blood Count 3.14 10^6/uL (3.85-5.65); Red Cell Distribution Width 14.6 % (12.1-15.1); White Blood Count 16.01 10^3/uL (3.29-11.43)
[2024-10-10 05:32] LABS: Alanine Aminotransferase 43 U/L (0-33); Albumin Level 2.9 g/dL (3.5-5.2); Alkaline Phosphatase 76 U/L (35-105); Aspartate Amino Transferase 63 U/L (0-32); Blood Urea Nitrogen 17 mg/dL (8-23); Calcium 8.4 mg/dL (8.5-10.5); Carbon Dioxide 21 mmol/L (22-29); Chloride 105 mmol/L (98-107); Creatinine Clr Calc Pharmacy 73.9734; Globulin 3.2 g/dL (1.3-4.6); Glomerular Filtration Rate 82.7 mL/min (90-130); Glucose 141 mg/dL (65-115); Osmolality Calculated 284 mOsm/kg (285-295); Sodium 135 mmol/L (136-145); Total Bilirubin 0.3 mg/dL (0.15-1.2); Total Protein 6.1 g/dL (6.6-8.7)
[2024-10-10 05:33] LABS: Anion Gap 13.1 (5-19); Potassium 4.1 mmol/L (3.5-5.1)
[2024-10-10] MEDS: aspirin 81 mg EC Tablet PO (05:44)
[2024-10-10] MEDS: potassium chloride ER 20 mEq Tablet PO (05:44)
[2024-10-10] MEDS: clopidogrel 75 mg Tablet PO (05:44)
[2024-10-10] MEDS: budesonide 0.5 mg/2 mL Neb 0.25 MG INHALATION ×2 (08:19→20:35)
[2024-10-10] MEDS: ALPRAZolam 0.5 mg Tablet 1 MG PO ×3 (08:38→20:12)
[2024-10-10] MEDS: pantoprazole DR 40 mg Tablet PO (08:38)
[2024-10-10] MEDS: topiramate 25 mg Tablet 50 MG PO ×2 (08:39→17:15)
[2024-10-10] MEDS: carvedilol 3.125 mg Tablet PO ×2 (08:39→17:15)
[2024-10-10] MEDS: ranolazine (12HR) 500 mg Tablet 1000 MG PO ×2 (08:39→17:15)
[2024-10-10] MEDS: TRANYLCYPROMINE 10 MG 20 EACH PO ×2 (08:40→17:14)
[2024-10-10] MEDS: acetaminophen 325 mg Tablet 1300 MG PO (08:52)
[2024-10-10] MEDS: baclofen 10 mg Tablet PO ×3 (10:23→20:11)
[2024-10-10] MEDS: capsaicin 0.025% cream 60 gm 1 APPLIC TOPICAL (12:04)
[2024-10-10] MEDS: enoxaparin 40 mg/0.4 mL Syringe SUBCUT (17:16)
[2024-10-10] MEDS: fluticasone nasal spray 16gm Btl 2 SPRAY INTRANASAL (17:16)
--- NOTE | 2024-10-10 17:58 | P.PN_ITS ---
Subjective 2 Subjective: Her back is still bothering her today. So far without significant improvement. Still having cough. Vitals/I&O/Wt Last Vital Signs Temp 97.5 F L 10/10/24 16:00 Pulse 80 10/10/24 16:00 Resp 19 H 10/10/24 16:00 BP 103/64 10/10/24 16:00 Pulse Ox 95 10/10/24 16:00 O2 Del Method Nasal Cannula 10/10/24 16:00 O2 Flow Rate 3 10/10/24 13:18 10/10/24 10/10/24 10/10/24 06:59 14:59 22:59 Intake Total 580 / 580 Output Total 100 / 100 Balance -100 / 50 580 / 580 Weight last 48 hrs Weight 83.178 kg Weight 81.374 kg Physical Exam 2 Const: COMMON NORMALS: patient oriented x3 and alert GENERAL APPEARANCE: c ooperative ORIENTATION/CONSCIOUSNESS: Yes awake HENMT: COMMON NORMALS: oropharynx normal Neck/C-Spine: COMMON NORMALS: no JVD Resp: AUSCULTATION: rhonchi Cardio: COMMON NORMALS: no JVD, regular rhythm, S1 normal heart sound present, S2 normal heart sound present and No murmurs present (Cardio) RHYTHM: regular rhythm HEART SOUNDS: S1 normal heart sound present and S2 normal heart sound present GI: COMMON NORMALS: Normal to inspection, nondistended, normoactive bowel sounds present, Soft to palpation and non-tender PALPATION: Yes Soft to palpation Extremity: COMMON NORMALS: no joint enlargement and no pedal edema Neuro: COMMON NORMALS: patient oriented x3 and moves all extremities S ENSORIUM/ORIENTATION: Yes alert Skin: COMMON NORMALS: no rashes or lesions noted GENERAL SKIN EXAM: no rashes or lesions noted Data 10/10/24 04:48 10/10/24 04:48 Micro: Microbiology 10/10/24 16:22 Legionella Urinary Antigen - Final Urine,Voided 10/09/24 20:08 Gram Stain - Final Sputum - Expectorated Sputum A&P Assessment and plan (1) Aspiration pneumonia: Reviewed vitals, CBC, CMP, sputum culture, urine bacterial antigens. General antigen negative, sputum culture without growth so far. Noted rising WBC of 16. Wheezing has improved. She is still having rhonchi, still coughing. Add guaifenesin, flutter valve. Encourage expectoration. Continue Zosyn. Maintain aspiration precautions. Discussed with speech therapist, MBS unavailable, will be done on Saturday. Continue Solu-Medrol for COPD exacerbation, monitor for risk of hyperglycemia, hypertension, encephalopathy with IV steroid. Reviewed POC glucose. Obtain speech therapy evaluation when able. Discussed with her aspiration precautions in detail. Obtain sputum culture. Modified barium swallow evaluation due to aspiration. With COPD exacerbation: Will continue Solu-Medrol 20 mg every 6 hours. Breathing treatments and DuoNebs scheduled and as needed. Collect sputum culture. (2) Fall: Fell after rolling out of bed. Maintain fall precautions. Up with assist. With lower back pain, lidocaine patch, Tylenol. Hydrocodone as a last resort. Discussed avoiding opiate if possible due to risks of complication. Discussed with adding safety for with her and her daughter tears to her bed, versus obtaining a hospital bed appreciate prefers not to have a hospital bed. (3) Compression fracture of L4 vertebra: Still having back pain today. Added capsaicin cream. Discussed regarding risk of as needed opioid, add hydrocodone as needed for moderate to severe pain. Discussed with physical therapist. Lidocaine patch. Acetaminophen as needed. Precautions. Up with assist. PT assessment when available. Also requesting case management consultation for when they are available to assist with disposition planning. (4) Elevated troponin: Reviewed troponin EKG series. Discussed with her options of further assessment. Considered timing of obtaining a stress test. She is agreeable with pursuing it after she recovers from acute condition, before colonoscopy. She has no chest pain. Does have history of coronary disease. Reviewed prior stress test from January 2023, noted large area of scar tissue from prior [place]. Suspect type II IL. (5) Aortic aneurysm: CT lumbar spine with finding of abdominal aortic aneurysm with some enlargement 3.5 x 3.6 cm compared to prior 3.2 x 3.1 cm in May Will need follow-up CTA imaging. Plan Transaminitis: Mild transaminitis, AST and ALT was showing improvement. Check CK for rhabdomyolysis. Alk phos elevation: Possibly mild cholestasis minimal elevation of alk phos. Hold Lasix for now. Reassess liver parameters. Volume status. CAD: Status post CABG, continue aspirin, Plavix, statin, beta-mara. Ranolazine. Depression: Continue tranylcypromine. She brought her own. Continue home medications for other medical conditions HTN HLD: Statin Panic disorder: Home Xanax. Other medical problems. Attestations 2 Medical Necessity Statement*: Continue admission for assessment management of aspiration pneumonia, COPD exacerbation, pending MBS assessment after aspiration pneumonia, optimization of pain control after L4 compression fracture after fall. and High MDM includes amount and/or complexity of data reviewed/ordered [ previous or external records and resulted lab(s)/test(s)] and described risk of complication, morbidity or mortality of management as documented Diagnoses Aspiration pneumonia J69.0 Fall W19.XXXA Compression fracture of L4 vertebra S32.040A Elevated troponin R79.89 Aortic aneurysm I71.9
[2024-10-10 18:36] LABS: Creatine Phosphokinase 36 U/L (26-192)
[2024-10-10] MEDS: atorvastatin 40 mg Tablet 20 MG PO (20:11)
[2024-10-10] MEDS: guaiFENesin 600 mg Tablet PO (20:11)
[2024-10-10] MEDS: montelukast sodium 10 mg Tablet PO (20:12)
[2024-10-10] MEDS: lidocaine 5% Patch 1 PATCH TOPICAL (20:21)
[2024-10-11] VITALS (15 sets, daily range): BP systolic 116–143; BP diastolic 56–81; PULSE 72–83; RESP 16–20; TEMP 36.5–36.8; O2SAT 90–98
[2024-10-11] MEDS: methylPREDNISolone sod succ 40 mg/mL INJ 20 MG IVP ×4 (00:01→17:21)
[2024-10-11] MEDS: ipratropium-albuterol 3 mL Neb INHALATION ×4 (01:12→20:34)
[2024-10-11] MEDS: piperacillin-tazobactam 3.375 GM in sodium chloride 0.9% (plus) 50 ML IV ×3 (01:59→17:14)
[2024-10-11 03:51] LABS: Basophils % 0.1 %; Eosinophils % 0.1 %; Hematocrit 30.5 % (36-47); Lymphocytes # 0.9 10^3/uL (0.8-4.8); Mean Corpuscular HGB Conc 30.5 g/dL (30-55); Mean Corpuscular Hemoglobin 29.3 pg (27-33); Mean Corpuscular Volume 96.2 fl (85-98); Mean Platelet Volume 10.1 fL (7.4-10.4); Monocytes # 0.5 10^3/uL (0.2-0.9); Monocytes % 3.6 %; Neutrophils # 11.15 10^3/uL (1.8-7.7); Neutrophils % 86.5 %; Nucleated Red Blood Cells % 0 %; Platelet Count 383 10^3/cmm (157-399); Red Blood Count 3.17 10^6/uL (3.85-5.65); Red Cell Distribution Width 14.5 % (12.1-15.1); White Blood Count 12.88 10^3/uL (3.29-11.43)
[2024-10-11 04:14] LABS: Alanine Aminotransferase 32 U/L (0-33); Albumin Level 3.2 g/dL (3.5-5.2); Alkaline Phosphatase 77 U/L (35-105); Aspartate Amino Transferase 30 U/L (0-32); Blood Urea Nitrogen 17 mg/dL (8-23); Calcium 8.5 mg/dL (8.5-10.5); Carbon Dioxide 23 mmol/L (22-29); Chloride 104 mmol/L (98-107); Creatinine Clr Calc Pharmacy 73.9734; Globulin 3.2 g/dL (1.3-4.6); Glomerular Filtration Rate 82.7 mL/min (90-130); Glucose 129 mg/dL (65-115); Osmolality Calculated 285 mOsm/kg (285-295); Sodium 136 mmol/L (136-145); Total Bilirubin 0.2 mg/dL (0.15-1.2); Total Protein 6.4 g/dL (6.6-8.7)
[2024-10-11] MEDS: aspirin 81 mg EC Tablet PO (05:27)
[2024-10-11] MEDS: clopidogrel 75 mg Tablet PO (05:27)
[2024-10-11] MEDS: potassium chloride ER 20 mEq Tablet PO (05:27)
[2024-10-11] MEDS: budesonide 0.5 mg/2 mL Neb 0.25 MG INHALATION ×2 (07:29→20:34)
[2024-10-11] MEDS: pantoprazole DR 40 mg Tablet PO (08:32)
[2024-10-11] MEDS: topiramate 25 mg Tablet 50 MG PO ×2 (08:33→17:13)
[2024-10-11] MEDS: ranolazine (12HR) 500 mg Tablet 1000 MG PO ×2 (08:33→17:13)
[2024-10-11] MEDS: baclofen 10 mg Tablet PO ×3 (08:33→20:28)
[2024-10-11] MEDS: guaiFENesin 600 mg Tablet PO ×2 (08:33→17:13)
[2024-10-11] MEDS: ALPRAZolam 0.5 mg Tablet 1 MG PO ×3 (08:34→20:28)
[2024-10-11] MEDS: TRANYLCYPROMINE 10 MG 20 EACH PO ×2 (08:37→17:21)
[2024-10-11] MEDS: HYDROcodone-acetaminophen 5-325 mg Tablet 0.5 TAB PO ×2 (09:44→17:43)
[2024-10-11] MEDS: carvedilol 3.125 mg Tablet PO ×2 (09:44→17:12)
--- NOTE | 2024-10-11 14:48 | P.PN_ITS ---
Subjective 2 Subjective: She feels unimproved, still with cough productive of thick hunter-green sputum, feels it looks like sputum on as she has had before. Otherwise back pain is also unimproved, no relief from lidocaine patch, minimal relief from acetaminophen. She feels she is going to have to try hydrocodone. Revisited regarding risks which she understands. Vitals/I&O/Wt Last Vital Signs Temp 97.7 F 10/11/24 12:00 Pulse 72 10/11/24 12:00 Resp 18 10/11/24 12:00 BP 125/72 10/11/24 12:00 Pulse Ox 98 10/11/24 12:00 O2 Del Method Nasal Cannula 10/11/24 12:00 O2 Flow Rate 2 10/11/24 12:00 10/10/24 10/11/24 10/11/24 22:59 06:59 14:59 Intake Total 410 / 990 290 / 1280 770 / 770 Balance 410 / 990 290 / 1280 770 / 770 Weight last 48 hrs Weight 83.234 kg Weight 83.178 kg Weight 81.374 kg Physical Exam 2 Const: COMMON NORMALS: patient oriented x3 and alert GENERAL APPEARANCE: c ooperative ORIENTATION/CONSCIOUSNESS: Yes awake HENMT: COMMON NORMALS: oropharynx normal Neck/C-Spine: COMMON NORMALS: no JVD Resp: COMMON NORMALS: normal respiratory effort and clear to auscultation bilaterally AUSCULTATION: clear to auscultation bilaterally Cardio: COMMON NORMALS: no JVD, regular rhythm, S1 normal heart sound present, S2 normal heart sound present and No murmurs present (Cardio) RHYTHM: regular rhythm HEART SOUNDS: S1 normal heart sound present and S2 normal heart sound present GI: COMMON NORMALS: Normal to inspection, nondistended, normoactive bowel sounds present, Soft to palpation and non-tender PALPATION: Yes Soft to palpation Extremity: COMMON NORMALS: no joint enlargement and no pedal edema Neuro: COMMON NORMALS: patient oriented x3 and moves all extremities S ENSORIUM/ORIENTATION: Yes alert Skin: COMMON NORMALS: no rashes or lesions noted GENERAL SKIN EXAM: no rashes or lesions noted Data 10/11/24 03:44 10/11/24 03:44 Micro: Microbiology 10/09/24 20:08 Gram Stain - Final Sputum - Expectorated Sputum Sputum Culture - Preliminary 10/10/24 16:22 Legionella Urinary Antigen - Final Urine,Voided A&P Assessment and plan (1) Aspiration pneumonia: She feels unimproved, still coughing, thick green sputum which she feels look like Pseudomonas she has had in the past. Reviewed sputum culture, so far many gram-positive cocci in pairs, few gram-positive rods, few budding yeast. Normal elizabeth at 18 to 24 hours. Follow-up culture. She does have history of multiple bacterial respiratory infections. Continue coverage with Zosyn. Will repeat MRSA PCR. Negative in the past. Reviewed vitals CBC, BMP. Leukocytosis improving. Continue expectorants with guaifenesin, flutter valve. Continue Zosyn. Maintain aspiration precautions. Discussed with speech therapist, VON nicholas, will be done on Saturday. Continue Solu-Medrol for COPD exacerbation, monitor for risk of hyperglycemia, hypertension, encephalopathy with IV steroid. Reviewed POC glucose. With COPD exacerbation: Will continue Solu-Medrol 20 mg every 6 hours. Breathing treatments and DuoNebs scheduled and as needed. (2) Fall: Fell after rolling out of bed. Maintain fall precautions. Up with assist. With lower back pain, lidocaine patch, Tylenol. Hydrocodone as a last resort. Discussed avoiding opiate if possible due to risks of complication. Discussed with adding safety for with her and her daughter tears to her bed, versus obtaining a hospital bed appreciate prefers not to have a hospital bed. (3) Compression fracture of L4 vertebra: Lidocaine and acetaminophen with minimal effectiveness, she will be having to try hydrocodone. Requested. IV morphine as needed for severe breakthrough pain. Continue PT. Lidocaine patch. Acetaminophen as needed. Precautions. Up with assist. Also requesting case management consultation for when they are available to assist with disposition planning. (4) Elevated troponin: Reviewed troponin EKG series. Discussed with her options of further assessment. Considered timing of obtaining a stress test. As discussed with her would pursue prior to colonoscopy. She is agreeable with pursuing it after she recovers from acute condition, before colonoscopy. She has no chest pain. Does have history of coronary disease. Reviewed prior stress test from January 2023, noted large area of scar tissue from prior [place]. Suspect type II [place]. (5) Aortic aneurysm: CT lumbar spine with finding of abdominal aortic aneurysm with some enlargement 3.5 x 3.6 cm compared to prior 3.2 x 3.1 cm in May Will need follow-up CTA imaging. Plan Transaminitis: Mild transaminitis, AST and ALT was showing improvement. Reviewed CK, negative for rhabdomyolysis. Alk phos elevation: Resolved. Possibly mild cholestasis minimal elevation of alk phos. Hold Lasix for now. Reassess liver parameters. Volume status. CAD: Status post CABG, continue aspirin, Plavix, statin, beta-mara. Ranolazine. Depression: Continue tranylcypromine. She brought her own. Continue home medications for other medical conditions HTN HLD: Statin Panic disorder: Home Xanax. Other medical problems. Attestations 2 Medical Necessity Statement*: Continue admission for assessment management of aspiration pneumonia, COPD exacerbation, pending MBS assessment after aspiration pneumonia, optimization of pain control after L4 compression fracture after fall. Diagnoses Aspiration pneumonia J69.0 Fall W19.XXXA Compression fracture of L4 vertebra S32.040A Elevated troponin R79.89 Aortic aneurysm I71.9
[2024-10-11] MEDS: enoxaparin 40 mg/0.4 mL Syringe SUBCUT (17:12)
[2024-10-11 17:13] LABS: MRSA PCR OZH (swab) NOT DETECTED (Not Detecte)
[2024-10-11] MEDS: fluticasone nasal spray 16gm Btl 2 SPRAY INTRANASAL (17:13)
--- NOTE | 2024-10-11 18:27 | PC.NURSE ---
Patient coughed up some thick sputum that was brownish green in color. Patient reports she believes it to be pseudomonas from prior sputum samples.
[2024-10-11] MEDS: atorvastatin 40 mg Tablet 20 MG PO (20:27)
[2024-10-11] MEDS: montelukast sodium 10 mg Tablet PO (20:28)
[2024-10-11] MEDS: lidocaine 5% Patch 1 PATCH TOPICAL (20:28)
[2024-10-12] VITALS (11 sets, daily range): BP systolic 92–137; BP diastolic 51–75; PULSE 66–79; RESP 15–20; TEMP 36.6–36.8; O2SAT 90–97
[2024-10-12] MEDS: HYDROcodone-acetaminophen 5-325 mg Tablet 0.5 TAB PO ×2 (01:13→02:34)
[2024-10-12] MEDS: piperacillin-tazobactam 3.375 GM in sodium chloride 0.9% (plus) 50 ML IV ×3 (01:13→21:43)
[2024-10-12] MEDS: methylPREDNISolone sod succ 40 mg/mL INJ 20 MG IVP ×3 (01:14→21:44)
[2024-10-12 05:54] LABS: Basophils % 0.1 %; Eosinophils % 0.1 %; Hematocrit 32.6 % (36-47); Lymphocytes % 9.7 %; Mean Corpuscular Hemoglobin 29.6 pg (27-33); Mean Corpuscular Volume 95.6 fl (85-98); Mean Platelet Volume 9.6 fL (7.4-10.4); Monocytes # 0.4 10^3/uL (0.2-0.9); Monocytes % 3.6 %; Neutrophils # 8.81 10^3/uL (1.8-7.7); Neutrophils % 84.6 %; Nucleated Red Blood Cells % 0 %; Platelet Count 440 10^3/cmm (157-399); Red Blood Count 3.41 10^6/uL (3.85-5.65); Red Cell Distribution Width 14.2 % (12.1-15.1); White Blood Count 10.42 10^3/uL (3.29-11.43)
[2024-10-12 06:01] LABS: Alanine Aminotransferase 24 U/L (0-33); Albumin Level 3.1 g/dL (3.5-5.2); Alkaline Phosphatase 69 U/L (35-105); Aspartate Amino Transferase 14 U/L (0-32); Blood Urea Nitrogen 18 mg/dL (8-23); Calcium 8.6 mg/dL (8.5-10.5); Carbon Dioxide 21 mmol/L (22-29); Chloride 103 mmol/L (98-107); Creatinine Clr Calc Pharmacy 75.5708; Globulin 3.1 g/dL (1.3-4.6); Glomerular Filtration Rate 82.7 mL/min (90-130); Glucose 117 mg/dL (65-115); Osmolality Calculated 281 mOsm/kg (285-295); Sodium 134 mmol/L (136-145); Total Bilirubin 0.2 mg/dL (0.15-1.2); Total Protein 6.2 g/dL (6.6-8.7)
[2024-10-12] MEDS: potassium chloride ER 20 mEq Tablet PO (06:15)
[2024-10-12] MEDS: aspirin 81 mg EC Tablet PO (06:15)
[2024-10-12] MEDS: clopidogrel 75 mg Tablet PO (06:15)
[2024-10-12] MEDS: pantoprazole DR 40 mg Tablet PO (08:23)
[2024-10-12] MEDS: baclofen 10 mg Tablet PO ×3 (08:24→20:19)
[2024-10-12] MEDS: ranolazine (12HR) 500 mg Tablet 1000 MG PO ×2 (08:24→17:20)
[2024-10-12] MEDS: topiramate 25 mg Tablet 50 MG PO ×2 (08:25→17:20)
[2024-10-12] MEDS: guaiFENesin 600 mg Tablet PO ×2 (08:25→17:20)
[2024-10-12] MEDS: ALPRAZolam 0.5 mg Tablet 1 MG PO ×2 (08:26→15:57)
[2024-10-12] MEDS: TRANYLCYPROMINE 10 MG 20 EACH PO ×2 (08:27→17:49)
[2024-10-12] MEDS: carvedilol 3.125 mg Tablet PO ×2 (08:27→17:20)
[2024-10-12] MEDS: ipratropium-albuterol 3 mL Neb INHALATION ×3 (09:19→21:23)
[2024-10-12] MEDS: budesonide 0.5 mg/2 mL Neb 0.25 MG INHALATION ×2 (09:19→21:23)
--- NOTE | 2024-10-12 09:51 | PC.SOCIAL ---
IMM Update pg 2 of IMM Updated and reviewed w/ patient. Copy provided and copy dated, initialed and placed in chart.
[2024-10-12] MEDS: HYDROcodone-acetaminophen 5-325 mg Tablet 1 TAB PO ×2 (10:38→18:39)
[2024-10-12 11:36] LABS: Free T4 Free Thyroxine 0.94 ng/dL (0.82-1.77); Thyroid Stimulating Hormone 0.14 uIU/mL (0.27-4.20)
--- NOTE | 2024-10-12 13:33 | P.PN_ITS ---
Subjective 2 Subjective: Hospital course, labs appreciated. Patient seen comfortably sitting up in bed. She is on 2 L of oxygen supplementation saturating more than 95%. Patient did saturate up to 93% with physical therapy. Has been working well with flutter valve. States she has been coughing up more green-colored sputum in the last 2 days. Denies any nausea, vomiting, headache. States cough and shortness of breath is better. States she feels to have wheezing in the right middle lung. Vitals/I&O/Wt Last Vital Signs Temp 98.0 F 10/12/24 12:00 Pulse 79 10/12/24 12:00 Resp 18 10/12/24 12:00 BP 137/75 10/12/24 12:00 Pulse Ox 97 10/12/24 12:00 O2 Del Method Nasal Cannula 10/12/24 12:00 O2 Flow Rate 2 10/12/24 08:00 10/11/24 10/12/24 10/12/24 22:59 06:59 14:59 Intake Total 730 / 1500 50 / 1550 600 / 600 Balance 730 / 1500 50 / 1550 600 / 600 Weight last 48 hrs Weight 87.044 kg Weight 83.234 kg Physical Exam 2 Const: COMMON NORMALS: patient oriented x3 and alert GENERAL APPEARANCE: c ooperative ORIENTATION/CONSCIOUSNESS: Yes awake HENMT: COMMON NORMALS: oropharynx normal Neck/C-Spine: COMMON NORMALS: no JVD Resp: COMMON NORMALS: normal respiratory effort and clear to auscultation bilaterally AUSCULTATION: clear to auscultation bilaterally, rhonchi right upper and wheezes Cardio: COMMON NORMALS: no JVD, regular rhythm, S1 normal heart sound present, S2 normal heart sound present and No murmurs present (Cardio) RHYTHM: regular rhythm HEART SOUNDS: S1 normal heart sound present and S2 normal heart sound present GI: COMMON NORMALS: Normal to inspection, nondistended, normoactive bowel sounds present, Soft to palpation and non-tender PALPATION: Yes Soft to palpation Extremity: COMMON NORMALS: no joint enlargement and no pedal edema Neuro: COMMON NORMALS: patient oriented x3 and moves all extremities S ENSORIUM/ORIENTATION: Yes alert Skin: COMMON NORMALS: no rashes or lesions noted GENERAL SKIN EXAM: no rashes or lesions noted Data 10/12/24 05:30 10/12/24 05:30 Micro: Microbiology 10/09/24 20:08 Gram Stain - Final Sputum - Expectorated Sputum Sputum Culture - Final 10/10/24 16:22 Legionella Urinary Antigen - Final Urine,Voided Bacterial Antigens - Final A&P Assessment and plan (1) Aspiration pneumonia: History of aspiration pneumonia in the past. Does have significant hiatal hernia. In past sputum culture have grown Pseudomonas and E. coli. Sensitivities appreciated. Appreciate current sputum culture. Will repeat sputum culture for now. No leukocytosis. Oxygen supplementation improving. Wean oxygen supplementation keeping saturation over 90%. Plan for MBS study today. Appreciate speech evaluation. Continue with current diet. Will change as per speech recommendations. Aspiration precaution Continue with IV Zosyn. MRSA swab negative. DuoNebs 6-hour, Pulmicort twice daily. Wean Solu-Medrol 20 mg IV every 8 hours. (2) Fall: Fell after rolling out of bed. Maintain fall precautions. Up with assist. Physical therapy. With lower back pain, lidocaine patch, Tylenol. Patient on Xanax 1 mg 3 times daily. Started on hydrocodone. Will not increase the dose further. Did discuss with patient that most likely she will go on a very minimal dose of hydrocodone. Suggested tramadol though patient states she is allergic with dizziness and rash. Discussed with adding safety for with her and her daughter tears to her bed, versus obtaining a hospital bed appreciate prefers not to have a hospital bed. (3) Compression fracture of L4 vertebra: Pain currently uncontrolled. Continue physical therapy. Continue with baclofen 3 times daily, [place] every 8 hours as needed, lidocaine patch. Up with assist. Avoid increasing pain medications further as patient is already on Xanax. (4) Elevated troponin: Reviewed troponin EKG series. Discussed with her options of further assessment. Considered timing of obtaining a stress test. As discussed with her would pursue prior to colonoscopy. She is agreeable with pursuing it after she recovers from acute condition, before colonoscopy. She has no chest pain. Does have history of coronary disease. Reviewed prior stress test from January 2023, noted large area of scar tissue from prior SD. Suspect type II SD. (5) Aortic aneurysm: CT lumbar spine with finding of abdominal aortic aneurysm with some enlargement 3.5 x 3.6 cm compared to prior 3.2 x 3.1 cm in May Will need follow-up CTA imaging. Plan Transaminitis: Mild transaminitis, AST and ALT was showing improvement. Reviewed CK, negative for rhabdomyolysis. CAD: Status post CABG, continue aspirin, Plavix, statin, beta-mara. Ranolazine. Depression: Continue tranylcypromine. She brought her own. Continue home medications for other medical conditions HTN HLD: Statin Panic disorder: Home Xanax. Other medical problems. Full code Protonix for PUD prophylaxis Lovenox for DVT prophylaxis Cardiac diet. Discharge plan: Patient working well with physical therapy. Does not want to pursue SNF placement. For now we will also want to hold off home health. Case management already on board. Attestations 2 Medical Necessity Statement*: Requires further hospitalization for management of aspiration pneumonitis leading to hypoxia while further speech study and MBS studies are awaited and safe discharge planning is sought Diagnoses Aspiration pneumonia J69.0 Fall W19.XXXA Compression fracture of L4 vertebra S32.040A Elevated troponin R79.89 Aortic aneurysm I71.9
[2024-10-12] MEDS: enoxaparin 40 mg/0.4 mL Syringe SUBCUT (17:48)
--- NOTE | 2024-10-12 18:05 | FL_ITS ---
WS: [id number] MODIFIED BARIUM SWALLOW TECHNIQUE: Modified barium swallow with speech therapy using multiple consistencies. FLUOROSCOPY TIME: 2.9 minutes # of spot films: 0 CLINICAL INFORMATION: Oropharyngeal dysphagia COMPARISON: None. FINDINGS: Multiple consistencies utilized. No difficult with the barium tablet. No evidence of manju aspiration . Somewhat delayed oropharyngeal phase and bolus formation with otherwise normal swallowing mechanism . Residual within the vallecula which cleared with additional swallows. FL/FL barium swallow modifd 41120 IMPRESSION: No evidence of manju aspiration. Please see speech therapy consultation for further detail.
[2024-10-12] MEDS: lidocaine 5% Patch 1 PATCH TOPICAL (20:18)
[2024-10-12] MEDS: montelukast sodium 10 mg Tablet PO (20:19)
[2024-10-12] MEDS: atorvastatin 40 mg Tablet 20 MG PO (20:19)
[2024-10-13] VITALS (8 sets, daily range): BP systolic 90–114; BP diastolic 54–68; PULSE 68–95; RESP 16–18; TEMP 36.4–36.6; O2SAT 90–93
[2024-10-13] MEDS: ALPRAZolam 0.5 mg Tablet 1 MG PO ×2 (00:15→10:30)
[2024-10-13] MEDS: aspirin 81 mg EC Tablet PO (05:44)
[2024-10-13] MEDS: potassium chloride ER 20 mEq Tablet PO (05:44)
[2024-10-13] MEDS: clopidogrel 75 mg Tablet PO (05:44)
[2024-10-13] MEDS: methylPREDNISolone sod succ 40 mg/mL INJ 20 MG IVP (05:45)
[2024-10-13] MEDS: piperacillin-tazobactam 3.375 GM in sodium chloride 0.9% (plus) 50 ML IV (05:45)
[2024-10-13 05:48] LABS: Basophils % 0.1 %; Hematocrit 34.7 % (36-47); Lymphocytes # 1.5 10^3/uL (0.8-4.8); Lymphocytes % 17.1 %; Mean Corpuscular HGB Conc 30.8 g/dL (30-55); Mean Corpuscular Hemoglobin 29.2 pg (27-33); Mean Corpuscular Volume 94.6 fl (85-98); Mean Platelet Volume 9.2 fL (7.4-10.4); Monocytes # 0.5 10^3/uL (0.2-0.9); Monocytes % 6.2 %; Neutrophils # 6.63 10^3/uL (1.8-7.7); Neutrophils % 75.6 %; Nucleated Red Blood Cells % 0 %; Platelet Count 479 10^3/cmm (157-399); Red Blood Count 3.67 10^6/uL (3.85-5.65); Red Cell Distribution Width 14.2 % (12.1-15.1); White Blood Count 8.77 10^3/uL (3.29-11.43)
[2024-10-13 06:06] LABS: Alanine Aminotransferase 20 U/L (0-33); Albumin Level 3.2 g/dL (3.5-5.2); Alkaline Phosphatase 77 U/L (35-105); Anion Gap 12.8 (5-19); Aspartate Amino Transferase 11 U/L (0-32); Blood Urea Nitrogen 20 mg/dL (8-23); Calcium 8.7 mg/dL (8.5-10.5); Carbon Dioxide 25 mmol/L (22-29); Chloride 106 mmol/L (98-107); Creatinine Clr Calc Pharmacy 72.9284; Globulin 3.1 g/dL (1.3-4.6); Glomerular Filtration Rate 70.9 mL/min (90-130); Glucose 112 mg/dL (65-115); Osmolality Calculated 291 mOsm/kg (285-295); Potassium 4.8 mmol/L (3.5-5.1); Sodium 139 mmol/L (136-145); Total Bilirubin 0.2 mg/dL (0.15-1.2); Total Protein 6.3 g/dL (6.6-8.7)
[2024-10-13] MEDS: HYDROcodone-acetaminophen 5-325 mg Tablet 1 TAB PO (06:32)
[2024-10-13] MEDS: ipratropium-albuterol 3 mL Neb INHALATION (08:42)
[2024-10-13] MEDS: budesonide 0.5 mg/2 mL Neb 0.25 MG INHALATION (08:42)
--- NOTE | 2024-10-13 10:12 | P.DS_ITS ---
Discharge Providers Date of Admission: 10/09/24 16:08 Date of Discharge: October 13, 2024 Attending Provider at Admission: Jamey Hernandez Attending Provider at Discharge: Enoch Martínez MD Primary Care Provider: Venancio Mota MD Diagnoses at Discharge Discharge Diagnosis (1) Aspiration pneumonia: Status: Acute (2) Fall: Status: Acute (3) Compression fracture of L4 vertebra: Status: Acute (4) Elevated troponin: Status: Acute (5) Aortic aneurysm: Status: Acute Reason for Visit Reason for Visit: SOB Brief History: Pleasant 69-year-old lady with history of COPD, recurrent pneumonia, not normally on oxygen, with history of hiatal hernia, CAD, CABG, stenting, other medical problems, rolled out of bed following up to the floor on Saturday having had some back pain since then alongside sustaining a large skin tear over the left forearm, yesterday started coughing after choking up while eating some twizzlers. Since then she has been more short of breath, with productive cough, feeling weak. On presentation to ER found to be hypoxic, especially with exertion, newly requiring 2-1/2 L nasal cannula oxygen. Noted with leukocytosis 13.23. ABG 7.33/41.9/59.7. As well as with noted troponin elevation, baseline of 116. As well as new liver primary abnormality, AST of 161, ALT 64, alk phos 109. Additional imaging in ER included chest x-ray, chest CT, which showed similar appearing but progressed patchy tree-in-bud type infiltrates worse on the right middle lobe and right lower lobe. As well as CT lumbar spine with finding of abdominal aortic aneurysm with some enlargement 3.5 x 3.6 cm compared to prior 3.2 x 3.1 cm in May. Multilevel central canal stenosis described above as well as slight compression superior endplate of L4. New since May Hospital Course Hospital Course Patient was admitted to the hospital further evaluation and management of hypoxia in setting of aspiration pneumonitis along with mechanical fall which led to compression fracture of L4 vertebrae. She was started on broad-spectrum antibiotics. Followed by PT and speech evaluation therapy. Modified barium swallow evaluation was done which showed no manju aspiration. Her diet was advanced gradually. Patient responded well to the treatment and has been improving gradually. She is back to her room air baseline oxygen supplementation for last 48 hours. She has been working well with physical the rapy. During hospitalization her blood culture remain negative and sputum culture is growing few GPC's. She has been discharged on oral Levaquin and cefuroxime for next 10 days given her frequent history of pneumonias with Klebsiella, E. coli, Pseudomonas. Levaquin should cover for Pseudomonas while cefuroxime should cover for E. coli in the past and GPC's currently. She has been discharged on her home dose of Xanax along with lidocaine patch. She is to follow-up with physical therapy as an outpatient further management of her compression fracture. She is to follow-up with the PCP in next 1 week. She should also have follow-up abdominal ultrasound for follow-up of abdominal aortic aneurysm Physical Exam Const: COMMON NORMALS: patient oriented x3 and alert GENERAL APPEARANCE: cooperative ORIENTATION/CONSCIOUSNESS: Yes awake HENMT: COMMON NORMALS: oropharynx normal Neck/C-Spine: COMMON NORMALS: no JVD Resp: COMMON NORMALS: normal respiratory effort and clear to auscultation bilaterally AUSCULTATION: clear to auscultation bilaterally, rhonchi right upper and wheezes Cardio: COMMON NORMALS: no JVD, regular rhythm, S1 normal heart sound present, S2 normal heart sound present and No murmurs present (Cardio) RHYTHM: regular rhythm HEART SOUNDS: S1 normal heart sound present and S2 normal heart sound present GI: COMMON NORMALS: Normal to inspection, nondistended, normoactive bowel sounds present, Soft to palpation and non-tender PALPATION: Yes Soft to palpation Extremity: COMMON NORMALS: no joint enlargement and no pedal edema Neuro: COMMON NORMALS: patient oriented x3 and moves all extremities SENSORIUM/ORIENTATION: Yes alert Skin: COMMON NORMALS: no rashes or lesions noted GENERAL SKIN EXAM: no rashes or lesions noted Discharge Data Studies Completed and Pending Completed Studies During Hospitalization Category Date Time Status CT chest wo con 64779 Stat Cat Scan 10/09/24 13:[address] lumbar spine wo con* [id number] Stat Cat Scan 10/09/24 13:02 Completed FL barium swallow modifd [id number] Routine Exams 10/12/24 18:05 Completed XR chest 1V portable [id number] Stat Exams 10/09/24 11:48 Completed Pending at discharge Category Date Time Status Sputum Culture and Gram Stain Routine Lab 10/12/24 12:15 Results Radiology Impressions Chest X-Ray 10/09/24 11:48 IMPRESSION: Compared to the most recent previous examination and appears that the lower lung field opacities persist and possibly have progressed. Lumbar Spine CT 10/09/24 13:02 IMPRESSION: 1. Abdominal aortic aneurysm measuring 3.5 x 3.6 cm. This is increased in size since 2019 where it measured approximately 3.2 x 3.1 cm. Recommend follow-up with CTA abdomen/pelvis. 2. Multilevel central canal stenosis described above 3. Slight compression superior endplate L4 appears new since 05-24. Recommend correlation for low back pain. Chest CT 10/09/24 13:03 IMPRESSION: 1. Similar appearing but progressed patchy tree-in-bud type infiltrates worse in the RIGHT middle lobe and RIGHT lower lobe. Recommend correlation for pneumonia. 2. No other significant interval changes. Modified Barium Swallow 10/12/24 18:05 IMPRESSION: No evidence of manju aspiration. Please see speech therapy consultation for further detail. Microbiology 10/12/24 12:15 Sputum - Expectorated Sputum Gram Stain - Final 10/09/24 20:08 Sputum - Expectorated Sputum Gram Stain - Final 10/09/24 20:08 Sputum - Expectorated Sputum Sputum Culture - Final 10/10/24 16:22 Urine,Voided Legionella Urinary Antigen - Final 10/10/24 16:22 Urine,Voided Bacterial Antigens - Final Laboratory Results WBC 8.77 10^3/uL (3.29-11.43) 10/13/24 05:35 RBC 3.67 10^6/uL (3.85-5.65) L 10/13/24 05:35 Hgb 10.70 g/dL (11.27-16.99) L 10/13/24 05:35 Hct 34.7 % (36-47) L 10/13/24 05:35 MCV 94.6 fl (85-98) 10/13/24 05:35 MCH 29.2 pg (27-33) 10/13/24 05:35 MCHC 30.8 g/dL (30-55) 10/13/24 05:35 RDW 14.2 % (12.1-15.1) 10/13/24 05:35 Plt Count 479 10^3/cmm (157-399) H 10/13/24 05:35 MPV 9.2 fL (7.4-10.4) 10/13/24 05:35 Neut % (Auto) 75.6 % 10/13/24 05:35 Lymph % (Auto) 17.1 % 10/13/24 05:35 [place] % (Auto) 6.2 % 10/13/24 05:35 Eos % (Auto) 0.0 % 10/13/24 05:35 Baso % (Auto) 0.1 % 10/13/24 05:35 Neut # (Auto) 6.63 10^3/uL (1.8-7.7) 10/13/24 05:35 Lymph # (Auto) 1.5 10^3/uL (0.8-4.8) 10/13/24 05:35 [place] # (Auto) 0.5 10^3/uL (0.2-0.9) 10/13/24 05:35 Eos # (Auto) 0.0 10^3/uL (0.0-0.8) 10/13/24 05:35 Baso # (Auto) 0.0 10^3/uL (0.0-0.1) 10/13/24 05:35 Nucleated RBC % (auto) 0 % 10/13/24 05:35 Nucleated RBCs # 0.0 /100WBC 10/13/24 05:35 Specimen Type Arterial 10/09/24 12:12 Sample Site Radial, left 10/09/24 12:12 ABG pH 7.33 (7.35-7.45) L 10/09/24 12:12 ABG pCO2 41.9 mmHg (35-45) 10/09/24 12:12 ABG pO2 59.7 mmHg (80.0-100.0) L 10/09/24 12:12 ABG PO2/FiO2 Ratio 284 10/09/24 12:12 ABG HCO3 22.1 mmol/L (22-26) 10/09/24 12:12 ABG O2 Saturation 91.6 10/09/24 12:12 ABG Base Excess -3.7 mmol/L (-2.0-2.0) L 10/09/24 12:12 [place]mer Test Pos 10/09/24 12:12 A-a O2 Gradient 5.1 mmHg (5-10) 10/09/24 12:12 Hematocrit 33.1 % (37-47) L 10/09/24 12:12 Hgb O2 Saturation 90.7 % (95-100) L 10/09/24 12:12 Carboxyhemoglobin 1.0 %THgb (0.4-20.1) 10/09/24 12:12 Methemoglobin < 0.0 % (0.4-1.5) L 10/09/24 12:12 Total Hemoglobin 10.8 g/dL (12-16) L 10/09/24 12:12 Sodium 141.0 mmol/L (131-143) 10/09/24 12:12 Potassium 3.2 mmol/L (3.5-5.0) L 10/09/24 12:12 Glucose 101.0 mg/dL (70-115) 10/09/24 12:12 Ionized Calcium 1.3 mmol/L (1.1-1.4) 10/09/24 12:12 O2 Delivery Device Room air 10/09/24 12:12 FiO2 21.0 % 10/09/24 12:12 Ax Survey Worker ID Cak 10/09/24 12:12 Sodium 139 mmol/L (136-145) 10/13/24 05:35 Potassium 4.8 mmol/L (3.5-5.1) 10/13/24 05:35 Chloride 106 mmol/L (98-107) 10/13/24 05:35 Carbon Dioxide 25 mmol/L (22-29) 10/13/24 05:35 Anion Gap 12.8 (5-19) 10/13/24 05:35 BUN 20 mg/dL (8-23) 10/13/24 05:35 Creatinine 0.8 mg/dL (0.5-0.9) 10/13/24 05:35 GFR Calculation 70.9 mL/min (90-130) L 10/13/24 05:35 Glucose 112 mg/dL (65-115) 10/13/24 05:35 Calculated Osmolality 291 mOsm/kg (285-295) 10/13/24 05:35 Lactic Acid 1.0 mmol/L (0.5-2.2) 10/09/24 12:02 Calcium 8.7 mg/dL (8.5-10.5) 10/13/24 05:35 Magnesium 2.0 mg/dL (1.7-2.3) 10/10/24 04:48 Total Bilirubin 0.2 mg/dL (0.15-1.2) 10/13/24 05:35 AST 11 U/L (0-32) 10/13/24 05:35 ALT 20 U/L (0-33) 10/13/24 05:35 Alkaline Phosphatase 77 U/L (35-105) 10/13/24 05:35 Creatine Kinase 36 U/L (26-192) 10/10/24 04:48 Troponin T Baseline 116 ng/L (0-10) H* 10/09/24 12:02 Troponin T 120 Minute 108.7 ng/L (0-10) H 10/09/24 13:45 Delta Troponin T -7.3 ABS# (0-10) L 10/09/24 13:45 Troponin T Hi Sens 6Hr 73.49 ng/L (0-10) H 10/09/24 18:17 Troponin T Hi Sens 6Hr Delta -42.51 ng/L (0-12) L 10/09/24 18:17 NT-Pro-B Natriuret Pep 3213 pg/mL (0-125) H 10/09/24 12:02 Total Protein 6.3 g/dL (6.6-8.7) L 10/13/24 05:35 Albumin 3.2 g/dL (3.5-5.2) L 10/13/24 05:35 Globulin 3.1 g/dL (1.3-4.6) 10/13/24 05:35 TSH 0.14 uIU/mL (0.27-4.20) L 10/12/24 05:30 Free T4 0.94 ng/dL (0.82-1.77) 10/12/24 05:30 Nasal MRSA (PCR) Not detected (Not Detecte) 10/11/24 15:38 Coronavirus (PCR) Negative (Negative) 10/09/24 12:03 Influenza A (PCR) Negative (Negative) 10/09/24 12:03 Influenza Type B (PCR) Negative (Negative) 10/09/24 12:03 RSV (PCR) Negative (Negative) 10/09/24 12:03 Vitals Last Vital Signs Temp 97.6 F 10/13/24 08:17 Pulse 81 10/13/24 08:43 Resp 16 10/13/24 08:43 BP 114/68 10/13/24 08:17 Pulse Ox 93 10/13/24 08:43 O2 Del Method Room Air 10/13/24 08:43 O2 Flow Rate 2 10/12/24 08:00 Discharge Plan Discharge Patient Disposition: Home Condition: Stable Prescriptions: New prednisone 10 mg tablet See Taper PO DIRECTED Qty: 42 0RF Taper: predniSONE 60-10 60 mg Daily for 2 Days and 0 Hour 50 mg Daily for 2 Days and 0 Hour 40 mg Daily for 2 Days and 0 Hour 30 mg Daily for 2 Days and 0 Hour 20 mg Daily for 2 Days and 0 Hour 10 mg Daily for 2 Days and 0 Hour Rx Instructions: see taper instructions levofloxacin 750 mg tablet 750 mg PO Q24H 10 Days Qty: 10 0RF cefuroxime axetil 500 mg tablet 500 mg PO BID 10 Days Qty: 20 0RF lidocaine 5 % adhesive patch,medicated See Rx Instructions .ROUTE .COMPLEX Qty: 15 0RF Rx Instructions: leave on most painful area for up to 12 hrs Continued multivitamin [Daily Multi-Vitamin] Tablet 1 tab PO QAM magnesium 250 mg tablet 250 mg PO QAM cholecalciferol (vitamin D3) 50 mcg (2,000 unit) tablet 2,000 unit PO QAM ascorbate calcium (vitamin C) 500 mg tablet 500 mg PO QAM aspirin [Adult Aspirin Regimen] 81 mg tablet,delayed release (DR/EC) 81 mg PO QAM topiramate 50 mg tablet 50 mg PO BID 30 Days Qty: 60 11RF potassium chloride 20 mEq tablet,ER particles/crystals 20 meq PO QAM Qty: 90 3RF tranylcypromine [Parnate] 10 mg tablet 20 mg PO BID Qty: 120 11RF alprazolam [Xanax] 1 mg tablet 1 mg PO TID Qty: 90 5RF carvedilol 3.125 mg tablet 3.125 mg PO BID Qty: 60 11RF omeprazole 20 mg capsule,delayed release(DR/EC) 20 mg PO BID Qty: 180 3RF nitroglycerin 0.4 mg tablet, sublingual 0.4 mg sublingual Q5M PRN (Reason: chest pain) Qty: 30 3RF Rx Instructions: do not exceed 3 doses per episode nystatin 100,000 unit/mL suspension 100,000 unit buccal DAILY Qty: 200 2RF Rx Instructions: administer 1/2 of dose in each side of the mouth clopidogrel [Plavix] 75 mg tablet 75 mg PO QAM Qty: 90 12RF ipratropium-albuterol 0.5 mg-3 mg(2.5 mg base)/3 mL solution for nebulization 3 ml INHALATION TID PRN (Reason: Shortness Of Breath) Qty: 180 3RF ranolazine 1,000 mg tablet extended release 12 hr 1,000 mg PO BID Qty: 180 3RF fluticasone propion-salmeterol [Wixela Inhub] 500-50 mcg/dose blister with device 1 inh inhalation BID Qty: 180 3RF lovastatin 20 mg tablet 20 mg PO BEDTIME Qty: 90 3RF fexofenadine 180 mg tablet 180 mg PO Q24H Qty: 30 11RF melatonin 10 mg Tablet 10 mg PO BEDTIME Colace 100 mg capsule 200 mg PO BEDTIME PRN (Reason: Constipation) omega 2-ljm-aoi-fish oil [Fish Oil] 300-1,000 mg Capsule 1 cap PO DAILY acetaminophen 650 mg Tablet Extended Release 1,300 mg PO Q8H PRN (Reason: Pain) baclofen 10 mg tablet 10 mg PO TID Hold Instructions: Resume on 07/15/24. furosemide 40 mg tablet 40 mg PO QAM montelukast 10 mg tablet 10 mg PO BEDTIME fluticasone propionate 50 mcg/actuation spray,suspension 2 spray intranasal BID Discharge Orders: Discharge Order (Routine); Ordered 10/13/24 Ordered By: Enoch Martínez Referrals: Venancio Mota MD [Primary Care Provider] - 10/20/24 12:40 pm Discharge Diet: Regular and Cardiac Discharge Activity: Resume usual activity and Increase activity as tolerated Patient Instructions: Cefuroxime (By mouth), Prednisone (By mouth), Lidocaine (On the skin), Levofloxacin (By mouth) (Levaquin, Levaquin Leva-basilio), Opioid Safety, Pneumonia Stoplight Activity Restrictions/Additional Instructions: Take cefuroxime and Levaquin which are the antibiotics for next 10 days. Cefuroxime will be twice daily and Levaquin be once daily. You can continue taking anxiety medication as before. You can start lidocaine patch as needed. Follow-up with your primary care provider within next 1 week. You should have a repeat abdominal ultrasound for further follow-up of abdominal aortic aneurysm within next 6 months. Continue with aspiration precautions are discussed in detail. Discharge Attestations Time Spent in Discharge Care*: greater than 30 min Specific Discharge Activities: educating patient, discussing with pcp/other providers, discussing with binder caser/social workers/dc planners, documenting/other paperwork and evaluating patient/reviewing data Status at Discharge: Cognitive status at discharge: cognitively intact , Behavioral status at discharge: cooperative , Functional status at discharge: uses cane/walker , Overall status at discharge: patient is progressing back to baseline Quality Metrics Clinical Quality Measures [ No reported AMI, CVA or VTE this stay] Coding Level of Care Code 58875 Total time (in minutes) for Discharge: 60 Diagnoses Aspiration pneumonia J69.0 Fall W19.XXXA Compression fracture of L4 vertebra S32.040A Elevated troponin R79.89 Aortic aneurysm I71.9
[2024-10-13] MEDS: baclofen 10 mg Tablet PO (10:29)
[2024-10-13] MEDS: pantoprazole DR 40 mg Tablet PO (10:29)
[2024-10-13] MEDS: topiramate 25 mg Tablet 50 MG PO (10:29)
[2024-10-13] MEDS: ranolazine (12HR) 500 mg Tablet 1000 MG PO (10:29)
[2024-10-13] MEDS: guaiFENesin 600 mg Tablet PO (10:30)
[2024-10-13] MEDS: TRANYLCYPROMINE 10 MG 20 EACH PO (10:32)
== END 2024-10-13 13:10 | disposition home or self-care (01) | DRG 177 ==
LOC: ER 14:39 → MEDSURG 16:08
PROVIDERS: Admitting Provider Internal Medicine; Emergency Provider Emergency Medicine; PCP Family Medicine; Visit Provider Student in an Organized Health Care Education/Training Program
DX: J69.0 Pneumonitis due to inhalation of food and vomit (principal); I21.A1 Myocardial infarction type 2; J44.1 Chronic obstructive pulmonary disease with (acute) exacerbation; S32.048A Other fracture of fourth lumbar vertebra, initial encounter for closed fracture; S50.812A Abrasion of left forearm, initial encounter; W06.XXXA Fall from bed, initial encounter; I25.10 Atherosclerotic heart disease of native coronary artery without angina pectoris; R09.02 Hypoxemia; I25.2 Old myocardial infarction; E78.00 Pure hypercholesterolemia, unspecified; I10 Essential (primary) hypertension; F41.0 Panic disorder [episodic paroxysmal anxiety]; Z96.611 Presence of right artificial shoulder joint; J18.0 Bronchopneumonia, unspecified organism; I71.40 Abdominal aortic aneurysm, without rupture, unspecified; R74.8 Abnormal levels of other serum enzymes; F32.A Depression, unspecified; K44.9 Diaphragmatic hernia without obstruction or gangrene; Z79.82 Long term (current) use of aspirin; Z79.02 Long term (current) use of antithrombotics/antiplatelets; Z87.01 Personal history of pneumonia (recurrent); Z95.5 Presence of coronary angioplasty implant and graft; Z95.1 Presence of aortocoronary bypass graft; Z87.891 Personal history of nicotine dependence; Z88.5 Allergy status to narcotic agent; Z90.710 Acquired absence of both cervix and uterus; Z90.49 Acquired absence of other specified parts of digestive tract
CPT/HCPCS: 0241U; 36415; 36600; 71045; 71250; 72131; 74230; 80051; 80053; 82330; 82550; 82805; 83605; 83735; 83880; 84439; 84443; 84484; 85025; 86403; 87070; 87205; 87449; 92611; 93005; 94640; 96365; 96372; 96375; 97116; 97161; 99285; J1650; J2543; J2919; J3490; J7613; J7626

== ENCOUNTER 2024-11-09 15:28 | Outpatient (CLI) | payer MEDICARE, SELFPAY ==
--- NOTE | 2024-11-09 15:30 | USCV_ITS ---
Malvin Rebecca Age: 69 Gender: F : 1955 Exam Date: 11/09/2024 15:50 Ordering Phys: Venancio Mota MD Technologist: [facility] [place] [facility] [place] HISTORY: Diameter (cm) AP x Transverse x Length Velocity (cm/s) Waveform Prox Aorta: 1.70 x 2.20 x 68.20 Triphasic Mid Aorta: 3.40 x 3.60 x 72.50 Triphasic Distal Aorta: 2.50 x 2.60 x 94.30 Triphasic Right Iliac Prox: 0.68 x 0.68 x 164.80 Triphasic Left Iliac Prox: 0.69 x 0.70 x 114.30 Triphasic Stent Prox Landing x x Aneurysmal Sac Max x x Lt Lat Sac Dim Rt Lat Sac Dim Stent Dist Landing x x Right Iliac Stent x x Left Iliac Stent x x Right Renal Art Left Renal Art FINDINGS: CONCLUSIONS AAA mid abdominal aorta maximum dimension 3.4 x 3.6cm. This is increased since 2020 ultrasound Moderate atheromatous disease Normal iliac arteries Michael Serrano MD (Electronically Signed) Final Date: 10 November 2024 16:23 S
== END 2024-11-09 15:29 | disposition home or self-care (01) ==
LOC: RAD 15:28
PROVIDERS: PCP Family Medicine; Visit Provider Family Medicine
DX: I71.40 Abdominal aortic aneurysm, without rupture, unspecified (principal); I70.0 Atherosclerosis of aorta
CPT/HCPCS: 76706

== ENCOUNTER → 2024-12-17 13:45 | Outpatient (BNVA) | payer MEDICARE, SELFPAY | PROVIDERS: PCP Family Medicine; Visit Provider Family Medicine | DX: J18.9 Pneumonia, unspecified organism (principal) | CPT/HCPCS: 87070; 87205 ==

== ENCOUNTER 2025-01-18 07:15 | Day surgery (SDC) | payer MEDICARE, SELFPAY ==
--- NOTE | 2025-01-17 12:24 | ANES.PREANE2 ---
Pre-Anesthetic Assessment Height/Weight: Height 5 ft 8 in Preop Diagnosis: Screening colonoscopy Operation Date: 01/18/25 08:15 Proposed Procedures p Colonoscopy 23875, G0121, Z12.11(Not Applicable) - Baldo Bergman MD Was Beta Ama taken within 24 hours: Yes Was Clonidine taken within 24 hours: N/A Social No alcohol and No tobacco Exam alert, oriented x 3, clear to auscultation bilaterally and regular rate & rhythm Airway Submandibular: within normal limits Cervical ROM: within normal limits Mallampati: Class II Dentition: false Anesthetic Plan ASA status: 3 Anesthesia: MAC Other: No prior issues with anesthesia Completed bowel prep History of hypertension on carvedilol GERD on omeprazole Chronic smoker, COPD. Controlled with inhalers Prior AAA Patient states that she has recurrent episodes of pneumonia. Most recent course 1 month ago. Completed antibiotics. Currently asymptomatic On chronic Plavix Plan for MAC anesthetic Medications/Allergies Home Medications ?Medication ?Instructions ?Recorded ?Confirmed ?Last Taken ?Type magnesium 250 mg tablet 400 mg PO QAM 12/08/19 01/14/25 01/14/25 History multivitamin (Daily Multi-Vitamin 1 tab PO QAM 12/08/19 01/14/25 01/14/25 History tablet) aspirin 81 mg tablet,delayed 81 mg PO QAM 08/30/20 01/14/25 01/18/25 06:15 History release (Adult Aspirin Regimen) cholecalciferol (vitamin D3) 50 2,000 unit PO QAM 06/01/21 01/14/25 01/14/25 History mcg (2,000 unit) tablet melatonin 10 mg tablet 10 mg PO BEDTIME Sleep 01/09/22 01/14/25 01/13/25 History docusate sodium 100 mg capsule 200 mg PO BEDTIME PRN Constipation 05/08/22 01/14/25 04/06/24 History (Colace) omega 5-fye-utc-fish oil 300 1 cap PO DAILY 05/01/23 01/14/25 01/14/25 History mg-1,000 mg capsule (Fish Oil) ascorbate calcium (vitamin C) 500 500 mg PO QAM 05/24/23 01/14/25 01/13/25 History mg tablet acetaminophen 650 mg 1,300 mg PO Q8H PRN Pain 04/02/24 01/14/25 01/13/25 History tablet,extended release potassium chloride 20 mEq 20 meq PO QAM #90 tabs 04/28/24 01/14/25 01/14/25 Rx tablet,extended release(part/cryst) topiramate 50 mg tablet 50 mg PO BID pain 30 days #60 tabs 04/28/24 01/14/25 01/14/25 Rx fluticasone 500 mcg-salmeterol 50 1 inh inhalation BID #180 ea 06/23/24 01/14/25 01/14/25 Rx mcg/dose blistr powdr for inhalation (Wixela Inhub) baclofen 10 mg tablet 10 mg PO TID PRN spasms 07/03/24 01/14/25 01/14/25 History nitroglycerin 0.4 mg sublingual 0.4 mg sublingual Q5M PRN chest 07/16/24 01/14/25 Unknown Rx tablet pain #30 tabs lovastatin 20 mg tablet 20 mg PO BEDTIME #90 tabs 08/25/24 01/14/25 01/13/25 Rx fexofenadine 180 mg tablet 180 mg PO Q24H #30 tabs 09/14/24 01/14/25 01/14/25 Rx fluticasone propionate 50 2 spray intranasal BID 10/09/24 01/14/25 01/14/25 History mcg/actuation nasal spray,suspension furosemide 40 mg tablet 20 mg PO QAM 10/09/24 01/14/25 01/14/25 History montelukast 10 mg tablet 10 mg PO BEDTIME 10/09/24 01/14/25 01/13/25 History nystatin 100,000 unit/mL oral 100,000 unit buccal DAILY PRN 10/15/24 01/14/25 Unknown History suspension thrush alprazolam 1 mg tablet (Xanax) 1 mg PO TID #90 tabs 11/04/24 01/14/25 01/14/25 Rx ipratropium 0.5 mg-albuterol 3 mg 3 ml inhalation TID PRN Shortness 11/26/24 01/14/25 01/13/25 Rx (2.5 mg base)/3 mL nebulization Of Breath #180 mL soln carvedilol 3.125 mg tablet 3.125 mg PO BID #60 tabs 12/21/24 01/14/2501/14/25 Rx ranolazine 1,000 mg 1,000 mg PO BID #180 tabs 12/22/24 01/14/25 01/14/25 Rx tablet,extended release,12 hr tranylcypromine 10 mg tablet 20 mg (2 x 10 mg) PO BID #120 tabs 01/12/25 01/14/25 01/14/25 Rx ([facility]ate) clopidogrel 75 mg tablet 75 mg PO QAM 01/14/25 01/14/25 01/18/25 06:15 History omeprazole 20 mg capsule,delayed 20 mg PO BID 01/14/25 01/14/25 01/13/25 History release Allergies Allergy/AdvReac Type Severity Reaction Status Date / Time pregabalin (From Lyrica) Allergy Severe dizziness Verified 01/18/25 08:37 codeine AdvReac Unknown Unknown Verified 01/18/25 08:37 gabapentin (From Neurontin) AdvReac Unknown dizziness Verified 01/18/25 08:37 oxycodone (From OxyContin) AdvReac Unknown Unknown Verified 01/18/25 08:37 Qlcyirm-WST-SaG Reductase AdvReac Unknown muscle Verified 01/18/25 08:37 Inhibitor (Pkiwlhk-Sun-Kkn aches Reductase Inhibitor) tramadol AdvReac Unknown rash Verified 01/18/25 08:37 [facility] Anesthesia Medical History Psychiatric care 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 Status post reverse total arthroplasty of right shoulder Status post laparoscopic cholecystectomy 01/01/2020 S/P right hemicolectomy 01/01/2020 H/O cardiac catheterization Status post colonoscopy S/p bilateral carpal tunnel release H/O rotator cuff surgery History of right shoulder replacement S/P CABG x 4 Hx of appendectomy Family History Daughter Diabetes Sister Diabetes x3 Brother Diabetes Son Hypertension Family/Other Thyroid disease granddaughter Mother Heart disease Denies family history of Colon cancer Ovarian cancer Clotting disorder Hyperlipidemia Breast cancer Anesthesia complication Bleeding disorder Uterine cancer Stroke Social History Smoking and tobacco/nicotine status: never used tobacco/nicotine Data Anesthesia Cardiac Studies: Echocardiogram 07/02/23 Echocardiogram Limited Views 09/10/22 Echocardiogram Ultrasound 01/04/20 Sestamibi Stress Test (Cardiology) 02/14/23 Cardiac Event Monitor 09/23/23
[2025-01-18 07:39] VITALS: BP 121/79; PULSE 78; RESP 20; TEMP 36.8; O2SAT 97; BMI 26.6
[2025-01-18] MEDS: sodium chloride 0.9% 1,000 ML 30 ML IV (08:15)
--- NOTE | 2025-01-18 08:16 | W.PM.OPSFHP ---
Same Day Surgery H&P Indication for Procedure/HPI DATE OF PROCEDURE: January 18, 2025 CHIEF COMPLAINT/INDICATIONFOR SURGICAL PROCEDURE: screening colonoscopy PREOP DIAGNOSIS: screening colonoscopy PLANNED PROCEDURE: Operation Date: 01/18/25 08:15 Proposed Procedures p Colonoscopy 87257, G0121, Z12.11(Not Applicable) - Baldo Bergman MD Medications/Allergies* Home Medications ?Medication ?Instructions ?Recorded ?Confirmed ?Type magnesium 250 mg tablet 400 mg PO QAM 12/08/19 01/14/25 History multivitamin (Daily Multi-Vitamin 1 tab PO QAM 12/08/19 01/14/25 History tablet) aspirin 81 mg tablet,delayed 81 mg PO QAM 08/30/20 01/14/25 History release (Adult Aspirin Regimen) cholecalciferol (vitamin D3) 50 2,000 unit PO QAM 06/01/21 01/14/25 History mcg (2,000 unit) tablet melatonin 10 mg tablet 10 mg PO BEDTIME Sleep 01/09/22 01/14/25 History docusate sodium 100 mg capsule 200 mg PO BEDTIME PRN Constipation 05/08/22 01/14/25 History (Colace) omega 0-egm-slt-fish oil 300 1 cap PO DAILY 05/01/23 01/14/25 History mg-1,000 mg capsule (Fish Oil) ascorbate calcium (vitamin C) 500 500 mg PO QAM 05/24/23 01/14/25 History mg tablet acetaminophen 650 mg 1,300 mg PO Q8H PRN Pain 04/02/24 01/14/25 History tablet,extended release baclofen 10 mg tablet 10 mg PO TID PRN spasms 07/03/24 01/14/25 History fluticasone propionate 50 2 spray intranasal BID 10/09/24 01/14/25 History mcg/actuation nasal spray,suspension furosemide 40 mg tablet 20 mg PO QAM 10/09/24 01/14/25 History montelukast 10 mg tablet 10 mg PO BEDTIME 10/09/24 01/14/25 History nystatin 100,000 unit/mL oral 100,000 unit buccal DAILY PRN 10/15/24 01/14/25 History suspension thrush clopidogrel 75 mg tablet 75 mg PO QAM 01/14/25 01/14/25 History omeprazole 20 mg capsule,delayed 20 mg PO BID 01/14/25 01/14/25 History release Allergies/Adverse Reactions Allergy/AdvReac Type Severity Reaction Status Date / Time pregabalin (From Lyrica) Allergy Severe dizziness Verified 01/14/25 08:16 codeine AdvReac Unknown Unknown Verified 01/14/25 08:16 gabapentin (From Neurontin) AdvReac Unknown dizziness Verified 01/14/25 08:16 oxycodone (From OxyContin) AdvReac Unknown Unknown Verified 01/14/25 08:16 Eqvxygp-JNM-FsE Reductase AdvReac Unknown muscle Verified 01/14/25 08:16 Inhibitor (Akzakxj-Gms-Dam aches Reductase Inhibitor) tramadol AdvReac Unknown rash Verified 01/14/25 08:16 Current Medications: Generic Name Dose Route Start Last Admin Trade Name Freq PRN Reason Stop Dose Admin Sodium Chloride 1,000 mls @ 30 mls/hr 01/18/25 07:00 01/18/25 08:15 Sodium Chloride 0.9% IV 30 mls/hr .Q24H ANTONIETTA Administration Pertinent History/Comorbid Conditions* Medical History (Updated 10/14/24 @ 00:00 by DANITA Concepcion) Psychiatric care 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 Status post reverse total arthroplasty of right shoulder Status post laparoscopic cholecystectomy 01/01/2020 S/P right hemicolectomy 01/01/2020 H/O cardiac catheterization Status post colonoscopy S/p bilateral carpal tunnel release H/O rotator cuff surgery History of right shoulder replacement S/P CABG x 4 Hx of appendectomy Family History (Updated 07/30/22 @ 14:51 by Valerie Pearson RN) Diabetes Daughter Sister x3 Brother Heart disease Mother Hypertension Son Thyroid disease Family/Other granddaughter Denies family history of Colon cancer Ovarian cancer Clotting disorder Hyperlipidemia Breast cancer Anesthesia complication Bleeding disorder Uterine cancer Stroke Social History Smoking and tobacco/nicotine status: never used tobacco/nicotine Pertinent Exam Findings alert, oriented x 3, clear to auscultation bilaterally, regular rate & rhythm and procedure specific exam findings abdomen soft, nt, nd Recommendations Surgery/Procedure today Coding Level of Care Code Acute Code for Chg Fwd
[2025-01-18] MEDS: EPINEPHrine 1 mg/mL INJ XX (10:02)
[2025-01-18 10:05] VITALS: BP 120/68; PULSE 76; RESP 16; TEMP 36.1; O2SAT 100
[2025-01-18 10:19] VITALS: BP 123/64; PULSE 64; RESP 16; O2SAT 97
--- NOTE | 2025-01-18 10:45 | ANE.PACU2 ---
Inpatient post-anesthesia follow up: Airway intact: Yes Vital signs: Temperature 97 F Pulse Rate 64 Respiratory Rate 16 Blood Pressure 123/64 Pulse Oximetry 97 Oxygen Delivery Me thod Room Air Oxygen Flow Rate Fraction of Inspir ed Oxygen Hydration adequate: Yes Nausea and vomiting: No Pain level: 1 Mental status: Baseline
== END 2025-01-18 10:45 | disposition home or self-care (01) ==
PROVIDERS: PCP Family Medicine; Visit Provider Student in an Organized Health Care Education/Training Program
PROC: 0DJD8ZZ Inspection of Lower Intestinal Tract, Via Natural or Artificial Opening Endoscopic (ICD-10-PCS; CPT 45378; principal; 2025-01-18 08:15)
DX: Z12.11 Encounter for screening for malignant neoplasm of colon (principal); K57.30 Diverticulosis of large intestine without perforation or abscess without bleeding; D12.0 Benign neoplasm of cecum; D12.3 Benign neoplasm of transverse colon; K62.1 Rectal polyp; I10 Essential (primary) hypertension; K21.9 Gastro-esophageal reflux disease without esophagitis; J44.9 Chronic obstructive pulmonary disease, unspecified; Z79.899 Other long term (current) drug therapy; Z79.02 Long term (current) use of antithrombotics/antiplatelets; F17.200 Nicotine dependence, unspecified, uncomplicated; Z79.82 Long term (current) use of aspirin; Z88.8 Allergy status to other drugs, medicaments and biological substances; Z88.5 Allergy status to narcotic agent; I25.10 Atherosclerotic heart disease of native coronary artery without angina pectoris; I25.2 Old myocardial infarction; E78.00 Pure hypercholesterolemia, unspecified; Z90.49 Acquired absence of other specified parts of digestive tract; Z95.1 Presence of aortocoronary bypass graft; Z96.611 Presence of right artificial shoulder joint; Z90.710 Acquired absence of both cervix and uterus
CPT/HCPCS: 45381; 45385; 88305; J0171; J2704; J7030

== ENCOUNTER → 2025-02-01 11:10 | Outpatient (BNVA) | payer MEDICARE, SELFPAY | PROVIDERS: PCP Family Medicine; Visit Provider Student in an Organized Health Care Education/Training Program | DX: Z09 Encounter for follow-up examination after completed treatment for conditions other than malignant neoplasm (principal) | CPT/HCPCS: 99213 ==

== ENCOUNTER → 2025-02-16 14:15 | Outpatient (BNVA) | payer MEDICARE, SELFPAY | PROVIDERS: PCP Family Medicine; Visit Provider Family Medicine | DX: N39.0 Urinary tract infection, site not specified (principal) | CPT/HCPCS: 81000; 87086 ==

== ENCOUNTER → 2025-02-22 13:36 | Outpatient (BNVA) | payer MEDICARE, SELFPAY | PROVIDERS: PCP Family Medicine; Visit Provider Anesthesiology Pain Medicine | DX: M54.50 Low back pain, unspecified (principal); M54.2 Cervicalgia; M25.511 Pain in right shoulder; M19.011 Primary osteoarthritis, right shoulder; M19.012 Primary osteoarthritis, left shoulder | CPT/HCPCS: 99214 ==

== ENCOUNTER 2025-02-24 14:31 | Outpatient (CLI) | payer MEDICARE, SELFPAY ==
--- NOTE | 2025-02-24 14:38 | MM_ITS ---
WS: [id number] BILATERAL 3D TOMOSYNTHESIS DIGITAL SCREENING MAMMOGRAPHY WITH CAD CLINICAL INFORMATION: SCREENING HISTORY: Screening mammogram. No current complaints. COMPARISON: 2023 TECHNIQUE: Bilateral CC and MLO views. FINDINGS: Scattered fibroglandular densities bilaterally. No suspicious focal mass, asymmetry, calcifications, or architectural distortion. No evidence of malignancy. A few tiny incidental punctate and lucent centered calcifications. Vascular calcification. MM/MM scr tomosynthesis [id number] IMPRESSION: DENSITY: There are scattered areas of fibroglandular density. BI-RADS: 2 - Benign. FOLLOW UP: 1 Year Follow-up Recommend return to annual screening mammography.
== END 2025-02-24 14:32 | disposition home or self-care (01) ==
LOC: RAD 14:32
PROVIDERS: PCP Family Medicine; Visit Provider Family Medicine
DX: Z12.31 Encounter for screening mammogram for malignant neoplasm of breast (principal); R92.323 Mammographic fibroglandular density, bilateral breasts; R92.1 Mammographic calcification found on diagnostic imaging of breast
CPT/HCPCS: 77063; 77067

== ENCOUNTER 2025-03-01 08:07 | Inpatient (IN) | payer MEDICARE, SELFPAY ==
[2025-03-01] VITALS (34 sets, daily range): BP systolic 76–164; BP diastolic 47–93; PULSE 68–117; RESP 16–33; TEMP 36.1–36.9; O2SAT 87–100; BMI 27.1; BMI 27.4
--- NOTE | 2025-03-01 08:09 | ECG_ITS ---
[facility] Test Date: 2025-03-01 Pat Name: Rebecca Coombs Department: Room: Gender: Female Telecommunicator: : 1955 Requested By: Callum Correa Order Number: [id number] Alicia MD: Jaiden Feliciano M.D. Measurements Intervals [place] Rate: 117 P: 90 ME: 179 QRS: 70 QRSD: 98 T: 90 QT: 321 QTc: 449 Interpretive Statements SINUS TACHYCARDIA Compared to ECG 10/09/2024 17:48:52 Sinus rhythm no longer present ST (T wave) deviation no longer present Electronically Signed On 03-06-2025 18:38:42 CDT by Jaiden Feliciano M.D. [email or web address] [id number]
--- NOTE | 2025-03-01 08:09 | XR_ITS ---
WS: [id number] XR chest 1V portable [id number] REASON FOR EXAM: dyspnea/cough FINDINGS: Previous aorto coronary artery bypass surgery without significant cardiomegaly. Significant and alveolar lung opacities in both lower lungs predominating on the right. There were similar but less severe abnormalities seen on examination of 10/09/2024, the last previous examination. XR/XR chest 1V portable [id number] IMPRESSION: Abnormal chest as above. Uncertain whether this is progression of previous abno rmality or subacute abnormality in the same distribution. Pneumonitis more likely than congestive failure.
--- NOTE | 2025-03-01 08:10 | W.ED.SOB ---
HPI - SOB/Dyspnea General: Chief Complaint: Shortness of Breath/Dyspnea Stated Complaint: SOB Time Seen by Provider: 03/01/25 08:08 History of Present Illness: HPI Narrative: 69-year-old presents for chest pain and shortness of breath productive cough for the last 2 days. Patient was hypoxic at home in the 60s on 6 L here is satting mid 90s. Patient denies chest or abdominal pain. She has been on some antibiotics earlier this month. Associated symptoms: Reports chest congestion, chest pain and orthopnea; Deny abdominal pain or fever(s) Related Data Home Medications ?Medication ?Instructions ?Recorded ?Confirmed magnesium 250 mg tablet 400 mg PO QAM 12/08/19 03/01/25 multivitamin (Daily Multi-Vitamin 1 tab PO QAM 12/08/19 03/01/25 tablet) aspirin 81 mg tablet,delayed 81 mg PO QAM 08/30/20 03/01/25 release (Adult Aspirin Regimen) cholecalciferol (vitamin D3) 50 2,000 unit PO QAM 06/01/21 03/01/25 mcg (2,000 unit) tablet melatonin 10 mg tablet 10 mg PO BEDTIME Sleep 01/09/22 03/01/25 docusate sodium 100 mg capsule 200 mg PO BEDTIME PRN Constipation 05/08/22 03/01/25 (Colace) omega 4-kva-uxi-fish oil 300 1 cap PO DAILY 05/01/23 03/01/25 mg-1,000 mg capsule (Fish Oil) ascorbate calcium (vitamin C) 500 500 mg PO QAM 05/24/23 03/01/25 mg tablet acetaminophen 650 mg 1,300 mg PO Q8H PRN Pain 04/02/24 03/01/25 tablet,extended release baclofen 10 mg tablet 10 mg PO TID PRN spasms 07/03/24 03/01/25 fluticasone propionate 50 2 spray intranasal BID 10/09/24 03/01/25 mcg/actuation nasal spray,suspension furosemide 40 mg tablet 20 mg PO QAM 10/09/24 03/01/25 montelukast 10 mg tablet 10 mg PO BEDTIME 10/09/24 03/01/25 omeprazole 20 mg capsule,delayed 20 mg PO BID 01/14/25 03/01/25 release clopidogrel 75 mg tablet 75 mg PO DAILY 03/01/25 03/01/25 Previous Rx's ?Medication ?Instructions ?Recorded topiramate 50 mg tablet 50 mg PO BID pain 30 days #60 tabs 04/28/24 fluticasone 500 mcg-salmeterol 50 1 inh inhalation BID #180 ea 06/23/24 mcg/dose blistr powdr for inhalation (Wixela Inhub) nitroglycerin 0.4 mg sublingual 0.4 mg sublingual Q5M PRN chest 07/16/24 tablet pain #30 tabs lovastatin 20 mg tablet 20 mg PO BEDTIME #90 tabs 08/25/24 fexofenadine 180 mg tablet 180 mg PO Q24H #30 tabs 09/14/24 alprazolam 1 mg tablet (Xanax) 1 mg PO TID #90 tabs 11/04/24 ipratropium 0.5 mg-albuterol 3 mg 3 ml inhalation TID PRN Shortness 11/26/24 (2.5 mg base)/3 mL nebulization Of Breath #180 mL soln carvedilol 3.125 mg tablet 3.125 mg PO BID #60 tabs 12/21/24 ranolazine 1,000 mg 1,000 mg PO BID #180 tabs 12/22/24 tablet,extended release,12 hr tranylcypromine 10 mg tablet 20 mg (2 x 10 mg) PO BID #120 tabs 01/12/25 (Parnate) potassium chloride 20 mEq 20 meq PO QAM #90 tabs 02/17/25 tablet,extended release(part/cryst) Allergies Allergy/AdvReac Type Severity Reaction Status Date / Time pregabalin (From Lyrica) Allergy Severe dizziness Verified 02/22/25 14:00 codeine AdvReac Unknown Unknown Verified 02/22/25 14:00 gabapentin (From Neurontin) AdvReac Unknown dizziness Verified 02/22/25 14:00 oxycodone (From OxyContin) AdvReac Unknown Unknown Verified 02/22/25 14:00 Nmvudsb-QEN-SvV Reductase AdvReac Unknown muscle Verified 02/22/25 14:00 Inhibitor (Mimpovh-Jev-Pdp aches Reductase Inhibitor) tramadol AdvReac Unknown rash Verified 02/22/25 14:00 Review of Systems Const: Denies: fever(s) or chills Card: Reports: chest pain, dyspnea on exertion and orthopnea; Denies: edema Resp: Reports: dyspnea, productive cough, wheezing and chest congestion GI: Denies: abdominal pain : Denies: dysuria, urinary frequency or urinary urgency Musc: Denies: neck pain or back pain Skin/Breast: Denies: rash PFSH ED PFSH: Medical History Psychiatric care 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 by [place] H/O: hysterectomy (~1988) BARB-- ovaries spared. Status post reverse total arthroplasty of right shoulder Status post laparoscopic cholecystectomy 01/01/2020 S/P right hemicolectomy 01/01/2020 H/O cardiac catheterization Status post colonoscopy S/p bilateral carpal tunnel release H/O rotator cuff surgery History of right shoulder replacement S/P CABG x 4 Hx of appendectomy Family History Daughter Diabetes Sister Diabetes x3 Brother Diabetes Son Hypertension Family/Other Thyroid disease granddaughter Mother Heart disease Denies family history of Colon cancer Ovarian cancer Clotting disorder Hyperlipidemia Breast cancer Anesthesia complication Bleeding disorder Uterine cancer Stroke Social History Smoking and tobacco/nicotine status: never used tobacco/nicotine Physical Exam Const: GENERAL APPEARANCE: cooperative ORIENTATION/CONSCIOUSNESS: Yes awake, Yes oriented to person, Yes oriented to place and Yes oriented to time HENMT: COMMON NORMALS: normocephalic, atraumatic and hearing grossly normal bilaterally HEAD & SCALP: normocephalic and atraumatic Resp: EFFORT & INSPECTION: Yes tachypneic and Yes uses accessory muscles AUSCULTATION: rhonchi right lower and wheezes Cardio: COMMON NORMALS: regular rate, regular rhythm and No murmurs present (Cardio) RATE: regular rate RHYTHM: regular rhythm GI: COMMON NORMALS: Soft to palpation and No hepatosplenomegaly present AUSCULTATION: Yes normoactive bowel sounds PALPATION: Yes Soft to palpation, No Tenderness to palpation present (GI), No Guarding due to palpation present (GI) and Yes No hepatosplenomegaly present Extremity: COMMON NORMALS: normal to inspection, capillary refill normal, no clubbing, cyanosis or edema, no calf tenderness and no pedal edema Neuro: SENSORIUM/ORIENTATION: Yes oriented to person, Yes oriented to place and Yes oriented to time Skin: COMMON NORMALS: no rashes or lesions noted GENERAL SKIN EXAM: no rashes or lesions noted Course Vital Signs: Vital signs: Vital Signs Temperature 98.4 F 03/01/25 14:05 Pulse Rate 75 03/01/25 16:10 Respiratory Rate 25 H 03/01/25 16:00 Blood Pressure 86/53 03/01/25 16:00 Pulse Oximetry 99 03/01/25 16:10 Oxygen Delivery Me thod BiPAP 03/01/25 14:25 Oxygen Flow Rate 40 03/01/25 14:25 Fraction of Inspir ed Oxygen 40 03/01/25 16:10 MDM - SOB/Dyspnea Medical Decision Making Admit to ICU BiPAP has improved started on Vanco Zosyn and Levaquin. Sputum and blood cultures done. Continue BiPAP discussed with hospitalist orders written Medical Records I reviewed the patient's medical records. Lab Data I reviewed the patient's lab results. 03/01/25 09:15 03/01/25 09:15 Labs/Radiology: Radiology Impressions Chest CTA 03/01/25 11:54 IMPRESSION: 1. No pulmonary embolism beyond the lobar branches into portions of the segmental branches. 2. Bilateral pneumonia, most significant in the lower lobes and RIGHT middle lobe. 3. Prior CABG. 4. No RIGHT heart strain. Chest X-Ray 03/01/25 12:40 IMPRESSION: Left arm PICC line placement as above. Laboratory Results WBC 2.93 10^3/uL (3.29-11.43) L 03/01/25 09:15 RBC 4.25 10^6/uL (3.85-5.65) 03/01/25 09:15 Hgb 12.70 g/dL (11.27-16.99) 03/01/25 09:15 Hct 41.5 % (36-47) 03/01/25 09:15 MCV 97.6 fl (85-98) 03/01/25 09:15 MCH 29.9 pg (27-33) 03/01/25 09:15 MCHC 30.6 g/dL (30-55) 03/01/25 09:15 RDW 14.2 % (12.1-15.1) 03/01/25 09:15 Plt Count 228 10^3/cmm (157-399) 03/01/25 09:15 MPV 9.5 fL (7.4-10.4) 03/01/25 09:15 Neut % (Auto) 65.9 % 03/01/25 09:15 Lymph % (Auto) 23.9 % 03/01/25 09:15 [place] % (Auto) 5.8 % 03/01/25 09:15 Eos % (Auto) 3.1 % 03/01/25 09:15 Baso % (Auto) 1.0 % 03/01/25 09:15 Neut # (Auto) 1.93 10^3/uL (1.8-7.7) 03/01/25 09:15 Lymph # (Auto) 0.7 10^3/uL (0.8-4.8) L 03/01/25 09:15 [place] # (Auto) 0.2 10^3/uL (0.2-0.9) 03/01/25 09:15 Eos # (Auto) 0.1 10^3/uL (0.0-0.8) 03/01/25 09:15 Baso # (Auto) 0.0 10^3/uL (0.0-0.1) 03/01/25 09:15 Nucleated RBC % (auto) 0 % 03/01/25 09:15 Nucleated RBCs # 0.0 /100WBC 03/01/25 09:15 Specimen Type Arterial 03/01/25 08:10 Sample Site Radial, right 03/01/25 08:10 ABG pH 7.28 (7.35-7.45) L 03/01/25 08:10 ABG pCO2 42.7 mmHg (35-45) 03/01/25 08:10 ABG pO2 50.7 mmHg (80.0-100.0) L 03/01/25 08:10 ABG PO2/FiO2 Ratio 112 03/01/25 08:10 ABG HCO3 20.1 mmol/L (22-26) L 03/01/25 08:10 ABG O2 Saturation 85.1 03/01/25 08:10 ABG Base Excess -6.4 mmol/L (-2.0-2.0) L 03/01/25 08:10 Elmer Test Pos 03/01/25 08:10 A-a O2 Gradient 28.2 mmHg (5-10) H 03/01/25 08:10 Hematocrit 40.9 % (37-47) 03/01/25 08:10 Hgb O2 Saturation 84.1 % (95-100) L 03/01/25 08:10 Carboxyhemoglobin 1.0 %THgb (0.4-20.1) 03/01/25 08:10 Methemoglobin 0.1 % (0.4-1.5) L 03/01/25 08:10 Total Hemoglobin 13.3 g/dL (12-16) 03/01/25 08:10 Sodium 144.0 mmol/L (131-143) H 03/01/25 08:10 Potassium 3.8 mmol/L (3.5-5.0) 03/01/25 08:10 Glucose 89.0 mg/dL (70-115) 03/01/25 08:10 Ionized Calcium 1.3 mmol/L (1.1-1.4) 03/01/25 08:10 O2 Delivery Device Nc 03/01/25 08:10 O2 Liters/Min 6.0 % 03/01/25 08:10 FiO2 45.0 % 03/01/25 08:10 Operations And Maintenance Technican ID Mb 03/01/25 08:10 Sodium 141 mmol/L (136-145) 03/01/25 09:15 Potassium 3.7 mmol/L (3.5-5.1) 03/01/25 09:15 Chloride 107 mmol/L (98-107) 03/01/25 09:15 Carbon Dioxide 21 mmol/L (22-29) L 03/01/25 09:15 Anion Gap 16.7 (5-19) 03/01/25 09:15 BUN 13 mg/dL (8-23) 03/01/25 09:15 Creatinine 0.9 mg/dL (0.5-0.9) 03/01/25 09:15 GFR Calculation 61.9 mL/min (90-130) L 03/01/25 09:15 Glucose 78 mg/dL (65-115) 03/01/25 09:15 Estimat Average Glucose 103 03/01/25 09:15 Hemoglobin A1c 5.2 % (4.0-6.0) 03/01/25 09:15 Calculated Osmolality 291 mOsm/kg (285-295) 03/01/25 09:15 Lactic Acid 2.2 03/01/25 09:15 Calcium 8.9 mg/dL (8.5-10.5) 03/01/25 09:15 Total Bilirubin 0.3 mg/dL (0.15-1.2) 03/01/25 09:15 AST 47 U/L (0-32) H 03/01/25 09:15 ALT 23 U/L (0-33) 03/01/25 09:15 Alkaline Phosphatase 71 U/L (35-105) 03/01/25 09:15 Troponin T Baseline 10 ng/L (0-10) 03/01/25 09:15 C-Reactive Protein 7.1 mg/L (0.0-4.9) H 03/01/25 09:15 NT-Pro-B Natriuret Pep 781 pg/mL (0-125) H 03/01/25 09:15 Total Protein 7.4 g/dL (6.6-8.7) 03/01/25 09:15 Albumin 3.9 g/dL (3.5-5.2) 03/01/25 09:15 Globulin 3.5 g/dL (1.3-4.6) 03/01/25 09:15 Triglycerides 128 mg/dL (0-150) 03/01/25 09:15 Cholesterol 183 mg/dL (0-200) 03/01/25 09:15 LDL Cholesterol, Calc 96 mg/dL (50-129) 03/01/25 09:15 HDL Cholesterol 61 mg/dL (60-100) 03/01/25 09:15 LDL/HDL Ratio 1.57 RATIO (0.00-3.22) 03/01/25 09:15 Cholesterol/HDL Ratio 3.00 mg/dL (0.0-4.40) 03/01/25 09:15 Procalcitonin 1.06 ng/mL (0-0.5) H 03/01/25 09:15 TSH 2.02 uIU/mL (0.27-4.20) 03/01/25 09:15 Random Cortisol 26.36 ug/dL (2.47-19.5) H 03/01/25 09:15 Influenza A (PCR) Negative (Negative) 03/01/25 09:15 Influenza Type B (PCR) Negative (Negative) 03/01/25 09:15 RSV (PCR) Negative (Negative) 03/01/25 09:15 SARS-CoV-2 (PCR) Negative (Negative) 03/01/25 09:15 All radiology interpretation(s) finalized by discharge Discharge Plan Discharge Patient Disposition: Admitted As Inpatient Admit Provider: David Hatch Clinical Impression: Pneumonia, COPD with acute exacerbation Condition: Stable Coding Level of Care Code ED Purification Supervisor for Lillian Yang
[2025-03-01 08:22] LABS: ABG PCO2 42.7 mmHg (35-45); ABG PH Result 7.28 (7.35-7.45); Arterial Blood Gas Hematocrit 40.9 % (37-47); Base Excess ABG -6.4 mmol/L (-2.0-2.0); Blood Gas Allen Test Pos; Blood Gas Operator Identificat MB; Blood Gas Sample Site Radial, right; Blood Gas Sample Type Arterial; HCO3 ABG 20.1 mmol/L (22-26); HGB O2 Sat 84.1 % (95-100); Ionized Calcium Level - ABG 1.3 mmol/L (1.1-1.4); Methemoglobin 0.1 % (0.4-1.5); Oxygen Device NC; Oxygen Saturation ABG 85.1; PO2 ABG 50.7 mmHg (80.0-100.0); Potassium Level - ABG 3.8 mmol/L (3.5-5.0); Total Hemoglobin 13.3 g/dL (12-16)
[2025-03-01 08:23] LABS: Alveolar-Arterial Oxygen Gradi 28.2 mmHg (5-10); PO2 FiO2 Ratio Arterial Blood 112
[2025-03-01 09:24] LABS: Eosinophils # 0.1 10^3/uL (0.0-0.8); Eosinophils % 3.1 %; Hematocrit 41.5 % (36-47); Lymphocytes # 0.7 10^3/uL (0.8-4.8); Lymphocytes % 23.9 %; Mean Corpuscular HGB Conc 30.6 g/dL (30-55); Mean Corpuscular Hemoglobin 29.9 pg (27-33); Mean Corpuscular Volume 97.6 fl (85-98); Mean Platelet Volume 9.5 fL (7.4-10.4); Monocytes # 0.2 10^3/uL (0.2-0.9); Monocytes % 5.8 %; Neutrophils # 1.93 10^3/uL (1.8-7.7); Neutrophils % 65.9 %; Nucleated Red Blood Cells % 0 %; Platelet Count 228 10^3/cmm (157-399); Red Blood Count 4.25 10^6/uL (3.85-5.65); Red Cell Distribution Width 14.2 % (12.1-15.1); White Blood Count 2.93 10^3/uL (3.29-11.43)
[2025-03-01 09:44] LABS: Troponin(5th) Baseline 10 ng/L (0-10)
[2025-03-01 09:48] LABS: Lactic Sepsis W/Reflex 2.2
[2025-03-01 09:52] LABS: Alanine Aminotransferase 23 U/L (0-33); Albumin Level 3.9 g/dL (3.5-5.2); Alkaline Phosphatase 71 U/L (35-105); Aspartate Amino Transferase 47 U/L (0-32); Blood Urea Nitrogen 13 mg/dL (8-23); Calcium 8.9 mg/dL (8.5-10.5); Carbon Dioxide 21 mmol/L (22-29); Chloride 107 mmol/L (98-107); Creatinine Clr Calc Pharmacy 62.7582; Globulin 3.5 g/dL (1.3-4.6); Glomerular Filtration Rate 61.9 mL/min (90-130); Glucose 78 mg/dL (65-115); Osmolality Calculated 291 mOsm/kg (285-295); Sodium 141 mmol/L (136-145); Total Bilirubin 0.3 mg/dL (0.15-1.2); Total Protein 7.4 g/dL (6.6-8.7)
[2025-03-01 09:53] LABS: Anion Gap 16.7 (5-19); Potassium 3.7 mmol/L (3.5-5.1)
[2025-03-01] MEDS: levofloxacin-dextrose 5 % 750 MG/150 ML PREMIX 100 MG IV (09:59)
[2025-03-01] MEDS: VANCOMYCIN ADD-Vantage 1,000 MG in 0.9% NaCl ADD-Vantage 250 ML 250 MG IV ×2 (10:03→19:53)
--- NOTE | 2025-03-01 10:09 | ECG_ITS ---
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
[2025-03-01] MEDS: LORazepam 2 mg/mL INJ 1 mL 1 MG IVP (10:38)
[2025-03-01 10:41] LABS: Influenza A NEGATIVE (Negative); Influenza B NEGATIVE (Negative); Respiratory Syncytial Virus Ce NEGATIVE (Negative); SARS-CoV-2 PCR NEGATIVE (Negative)
[2025-03-01] MEDS: morphine 4 mg/mL SDV 1 mL 2 MG IVP (10:42)
[2025-03-01] MEDS: piperacillin-tazobactam 3.375 GM in sodium chloride 0.9% (plus) 50 ML IV ×2 (10:44→17:01)
[2025-03-01 11:48] LABS: Troponin 5 2HR 13.56 ng/L (0-10); Troponin 5 2HR Delta 3.56 ABS# (0-10)
--- NOTE | 2025-03-01 11:54 | CT_ITS ---
WS: [id number] CT CHEST ANGIOGRAPHY WITH REFORMATS HISTORY: sob TECHNIQUE: Contiguous axial images are obtained through the chest during arterial injection of intravenous contrast. Images are reconstructed to evaluate the pulmonary arteries. MIP imaging also reviewed. All CT scans at [facility] use at least one of these dose optimization techniques: automated exposure control; mA and/or kV adjustment per patient size (includes targeted exams where dose is matched to clinical indication); or iterative reconstruction. CONTRAST: Omnipaque 350; 100 mL IV. DLP: 375.11 mGy.cm COMPARISON: 10/09/2024, 07/03/2024 Patient unable to elevate RIGHT arm. Artifact of the chest. Motion/breathing artifact. Limited opacification of the pulmonary arteries. Centrally no pulmonary embolism is identified. Pulmonary artery is slightly enlarged. Opacification is normal through the lobar branches and proximal segmental branches. The segmental branch opacification becomes limited. Atherosclerosis aorta. No RIGHT heart strain. Heart size is normal. Scattered bilateral pulm opacifications. Most significant areas of consolidation are at the lung bases and extending into the RIGHT middle lobe. Lesser scattered opacifications in the upper lung kothari. Prior CABG. No adenopathy. Mild LEFT adrenal hyperplasia. Stomach is moderately distended with fluid. There is a small hiatal hernia. Suprarenal aortic calcifications. Increase in thoracic kyphosis. CT/CT angio chest PE protcl [id number] IMPRESSION: 1. No pulmonary embolism beyond the lobar branches into portions of the segmen rafa branches. 2. Bilateral pneumonia, most significant in the lower lobes and RIGHT middle l obe. 3. Prior CABG. 4. No RIGHT heart strain.
[2025-03-01] MEDS: iohexol 350 mg/mL 500 mL Btl (per mL) IV (12:26)
--- NOTE | 2025-03-01 12:40 | XR_ITS ---
WS: [id number] XR chest 1V portable [id number] REASON FOR EXAM: Post PICC insertion FINDINGS: Left arm PICC line has been placed. The tip is in the distal SVC. Again are noted the diffuse lung opacities in both lower lung kothari. No change from earlier today. XR/XR chest 1V portable [id number] IMPRESSION: Left arm PICC line placement as above.
[2025-03-01 12:41] LABS: NT Pro B Type Natriuretic Pept 781 pg/mL (0-125)
--- NOTE | 2025-03-01 13:32 | PC.NURSE ---
Patient arrived to ICU 12 from ED. Patient extremely anxious. Belongings charted that are at bedside. Patient stated she left lower full denture plate at home. Allergies confirmed with patient. Patient upset she is NPO.
[2025-03-01 13:37] LABS: Bacteria Urine None Seen /hpf; RBC Urine 0-2 /hpf (0-2); Squamous Epithelial Cell Urine 0-5 /hpf (0-5); WBC Urine 0-5 /hpf (0-5)
[2025-03-01] MEDS: lactated ringers 1,000 ML 999 ML IV ×2 (13:55→14:52)
--- NOTE | 2025-03-01 13:56 | PICC.NOTE ---
Triple lumen PICC placed to left brachial vein. Referred to vascular access nurse for PICC placement due to provider request and history of poor access. Risks and benefits discussed and informed consent obtained from pt. Pt with history of right total reverse shoulder. Left arm assessed with left brachial vein measuring 3.8 mm, straight, and apparent best choice for placement. Using sterile technique and MST, left brachial vein accessed x 1 stick. Mid-arm circumference measured 10 cm from left AC 30 cm. Trimmed cath 45 cm with 0 cm external length noted. CXR shows tip in distal SVC, in good position for use per radiologist. Line secured with stat-lock. Insertion site covered with Biopatch and TSM. Report given to bedside nurse, VALENCIA Salinas.
[2025-03-01 14:00] LABS: Add Urine Microscopic? YES; Bilirubin Urine Neg (Negative); Blood Urine Neg (Negative); Glucose Urine UA Norm (Normal); Ketones Urine Negative (Negative); Nitrate Urine Negative (Negative); Protein Urine 1+ (Negative); Specific Gravity, Urine 1.005 (1.005-1.030); Urine Appearance Clear (CLEAR); Urine Color Yellow (Yellow); pH Urine 5 (5-7)
[2025-03-01 14:01] LABS: Add Urine Culture? No; Leukocyte Esterase Urine Trace (Negative); Urobilinogen Urine Norm (Negative)
--- NOTE | 2025-03-01 14:09 | ECG_ITS ---
[facility] Date: 2025-[facility]01 Pat Name: Rebecca Coombs Department: Room: ICU12 Gender: Female Rn Ostomy: : 1955 Requested By: Callum Correa Order Number: [id number] Reading MD: JAMARCUS OLSON Measurements Intervals [place] Rate: 86 P: 65 NJ: 189 QRS: 36 QRSD: 97 T: 76 QT: 386 QTc: 462 Interpretive Statements SINUS RHYTHM Compared to ECG 03/01/2025 08:11:50 Sinus tachycardia no longer present Electronically Signed On 03-07-2025 21:50:54 CDT by JAMARCUS OLSON [email or web address] [id number]
[2025-03-01] MEDS: budesonide 0.5 mg/2 mL Neb INHALATION ×2 (14:23→20:53)
[2025-03-01] MEDS: ipratropium-albuterol 3 mL Neb INHALATION ×2 (14:24→20:53)
[2025-03-01 14:31] LABS: Cortisol Random 26.36 ug/dL (2.47-19.5); Procalcitonin 1.06 ng/mL (0-0.5); Thyroid Stimulating Hormone 2.02 uIU/mL (0.27-4.20)
--- NOTE | 2025-03-01 14:33 | PHA.VACGOAL ---
Vancomycin Goal - Goal Vancomycin Goal:: 15-20 mg/L - Therapy Current therapy:: Pip/Tazo Day of therpy:: Day 1 of [] Actual body weight (kg): 180 lb 12.465 oz - Data Labs: WBC 2.93 10^3/uL (3.29-11.43) L 03/01/25 09:15 RBC 4.25 10^6/uL (3.85-5.65) 03/01/25 09:15 Hgb 12.70 g/dL (11.27-16.99) 03/01/25 09:15 Hct 41.5 % (36-47) 03/01/25 09:15 MCV 97.6 fl (85-98) 03/01/25 09:15 MCH 29.9 pg (27-33) 03/01/25 09:15 MCHC 30.6 g/dL (30-55) 03/01/25 09:15 RDW 14.2 % (12.1-15.1) 03/01/25 09:15 Sodium 141 mmol/L (136-145) 03/01/25 09:15 Potassium 3.7 mmol/L (3.5-5.1) 03/01/25 09:15 Chloride 107 mmol/L (98-107) 03/01/25 09:15 Carbon Dioxide 21 mmol/L (22-29) L 03/01/25 09:15 Anion Gap 16.7 (5-19) 03/01/25 09:15 BUN 13 mg/dL (8-23) 03/01/25 09:15 Creatinine 0.9 mg/dL (0.5-0.9) 03/01/25 09:15 GFR Calculation 61.9 mL/min (90-130) L 03/01/25 09:15 Last dialysis session:: N/A Treatment plan:: new consult Regimen:: LOADING DOSE OF 1000 MG GIVEN IN ER MAINTENANCE DOSE OF 1000 MG Q12H PER DOSING PROTOCOL Follow up:: WILL CONTINUE TO MONITOR AND FOLLOW UP DAILY
[2025-03-01] MEDS: pantoprazole 40 mg SDV IVP (14:38)
[2025-03-01] MEDS: enoxaparin 40 mg/0.4 mL Syringe SUBCUT (14:38)
[2025-03-01] MEDS: methylPREDNISolone sod succ 125 mg/2 mL INJ IVP (14:39)
[2025-03-01 14:42] LABS: C Reactive Protein 7.1 mg/L (0.0-4.9); Cholesterol 183 mg/dL (0-200); HDL Cholesterol 61 mg/dL (60-100); LDL Cholesterol Calculated 96 mg/dL (50-129); LDL HDL Ratio 1.57 RATIO (0.00-3.22); Triglycerides 128 mg/dL (0-150)
--- NOTE | 2025-03-01 14:45 | PM.HP ---
Providers/Chief Complaint Admitting Physician: David Hatch MD Primary Care Provider: Venancio Mota MD Chief Complaint: SOB History of Present Illness Rebecca Coombs is a 69 year old female with a past medical history of COPD, CAD, CABG, hypertension, hyperlipidemia, history of compression L4, history of hiatal hernia, history of aspiration pneumonia, who presents [facility] for shortness of breath, cough. Currently patient is on BiPAP, she is alert oriented x 3, can follow commands, in respiratory failure, with tachypnea, tachycardia, intercostal or suprasternal retractions, nasal flaring, short of breath with a few words, 40% BiPAP. He does also report anterior chest discomfort, no lightheadedness, no dizziness, she saw her primary care provider she was given Levaquin for concerns for pneumonia. During my discussion, patient's blood pressures 89/69, has evidence of septic shock, D diminished DP PT pulses, cap refill greater than 2 seconds, mild mottling bilateral extremities, discussed with nursing staff will give her a sepsis bolus however she does have a history of CHF, order placed for 2 L, order placed for Levophed, order placed for PICC line. Discussed with patient that she has septic shock secondary to right middle and right lower lobe pneumonia, will order CT angiogram of the chest, monitor in ICU closely. Will give her 2 L bolus sepsis bolus, and she is at risk of CHF exacerbation, BNP elevated, so we not will give her full sepsis bolus due to risk of CHF exacerbation. The patient was seen in the ICU, working on her for sepsis bolus, blood pressures 80s over 60s, she is alert oriented x 3, following all commands, in mild to moderate respiratory failure, she tells that she gets claustrophobic with the BiPAP is seen, discussed BiPAP machine will help with her work of breathing, will start her on Precedex for anxiety. Discussed with nursing staff goals to maintain MAP greater than 65, if she does not respond to fluid, can go ahead and start her on Levophed. Discussed with patient the morbidity mortality associated with her pneumonia, her septic shock, respiratory failure, she voiced understanding, all questions answered, she is a full code. Review of Systems Const: Reports: fever(s), chills, fatigue and malaise Card: Reports: chest pain Resp: Reports: dyspnea GI: Denies: abdominal pain : Denies: flank pain Neuro: Denies: headache(s) Medications/Allergies Home Medications ?Medication ?Instructions ?Recorded ?Confirmed ?Last Taken ?Type magnesium 250 mg tablet 400 mg PO QAM 12/08/19 03/01/25 02/28/25 History multivitamin (Daily Multi-Vitamin 1 tab PO QAM 12/08/19 03/01/25 03/01/25 History tablet) aspirin 81 mg tablet,delayed 81 mg PO QAM 08/30/20 03/01/25 03/01/25 History release (Adult Aspirin Regimen) cholecalciferol (vitamin D3) 50 2,000 unit PO QAM 06/01/21 03/01/25 03/01/25 History mcg (2,000 unit) tablet melatonin 10 mg tablet 10 mg PO BEDTIME Sleep 01/09/22 03/01/25 01/13/25 History docusate sodium 100 mg capsule 200 mg PO BEDTIME PRN Constipation 05/08/22 03/01/25 02/28/25 History (Colace) omega 1-jjy-hmm-fish oil 300 1 cap PO DAILY 05/01/23 03/01/25 02/28/25 History mg-1,000 mg capsule (Fish Oil) ascorbate calcium (vitamin C) 500 500 mg PO QAM 05/24/23 03/01/25 03/01/25 History mg tablet acetaminophen 650 mg 1,300 mg PO Q8H PRN Pain 04/02/24 03/01/25 01/13/25 History tablet,extended release topiramate 50 mg tablet 50 mg PO BID pain 30 days #60 tabs 04/28/24 03/01/25 03/01/25 05:30 Rx fluticasone 500 mcg-salmeterol 50 1 inh inhalation BID #180 ea 06/23/24 03/01/25 03/01/25 Rx mcg/dose blistr powdr for inhalation (Wixela Inhub) baclofen 10 mg tablet 10 mg PO TID PRN spasms 07/03/24 03/01/25 03/01/25 History nitroglycerin 0.4 mg sublingual 0.4 mg sublingual Q5M PRN chest 07/16/24 03/01/25 Unknown Rx tablet pain #30 tabs lovastatin 20 mg tablet 20 mg PO BEDTIME #90 tabs 08/25/24 03/01/25 02/28/25 Rx fexofenadine 180 mg tablet 180 mg PO Q24H #30 tabs 09/14/24 03/01/25 02/28/25 Rx fluticasone propionate 50 2 spray intranasal BID 10/09/24 03/01/25 03/01/25 History mcg/actuation nasal spray,suspension furosemide 40 mg tablet 20 mg PO QAM 10/09/24 03/01/25 02/28/25 History montelukast 10 mg tablet 10 mg PO BEDTIME 10/09/24 03/01/25 02/28/25 History alprazolam 1 mg tablet (Xanax) 1 mg PO TID #90 tabs 11/04/24 03/01/25 03/01/25 06:00 Rx ipratropium 0.5 mg-albuterol 3 mg 3 ml inhalation TID PRN Shortness 11/26/24 03/01/25 01/13/25 Rx (2.5 mg base)/3 mL nebulization Of Breath #180 mL soln carvedilol 3.125 mg tablet 3.125 mg PO BID #60 tabs 12/21/24 03/01/25 03/01/25 Rx ranolazine 1,000 mg 1,000 mg PO BID #180 tabs 12/22/24 03/01/25 03/01/25 Rx tablet,extended release,12 hr tranylcypromine 10 mg tablet 20 mg (2 x 10 mg) PO BID #120 tabs 01/12/25 03/01/25 03/01/25 Rx (Parnate) omeprazole 20 mg capsule,delayed 20 mg PO BID 01/14/25 03/01/25 02/28/25 History release potassium chloride 20 mEq 20 meq PO QAM #90 tabs 02/17/25 03/01/25 02/28/25 Rx tablet,extended release(part/cryst) clopidogrel 75 mg tablet 75 mg PO DAILY 03/01/25 03/01/25 03/01/25 History Allergies Allergy/AdvReac Type Severity Reaction Status Date / Time pregabalin (From Lyrica) Allergy Severe dizziness Verified 02/22/25 14:00 codeine AdvReac Unknown Unknown Verified 02/22/25 14:00 gabapentin (From Neurontin) AdvReac Unknown dizziness Verified 02/22/25 14:00 oxycodone (From OxyContin) AdvReac Unknown Unknown Verified 02/22/25 14:00 Gfnbmkn-TJX-JsD Reductase AdvReac Unknown muscle Verified 02/22/25 14:00 Inhibitor ([place]-Qic-Bfm aches Reductase Inhibitor) tramadol AdvReac Unknown rash Verified 02/22/25 14:00 PFSH Acute PFSH: Medical History Psychiatric care 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 Status post reverse total arthroplasty of right shoulder Status post laparoscopic cholecystectomy 01/01/2020 S/P right hemicolectomy 01/01/2020 H/O cardiac catheterization Status post colonoscopy S/p bilateral carpal tunnel release H/O rotator cuff surgery History of right shoulder replacement S/P CABG x 4 Hx of appendectomy Family History Daughter Diabetes Sister Diabetes x3 Brother Diabetes Son Hypertension Family/Other Thyroid disease granddaughter Mother Heart disease Denies family history of Colon cancer Ovarian cancer Clotting disorder Hyperlipidemia Breast cancer Anesthesia complication Bleeding disorder Uterine cancer Stroke Social History Smoking and tobacco/nicotine status: never used tobacco/nicotine Vitals/I&O/Wt Last Vital Signs Temp 98.4 F 03/01/25 14:05 Pulse 81 03/01/25 14:27 Resp 26 H 03/01/25 14:25 BP 76/48 03/01/25 14:05 Pulse Ox 98 03/01/25 14:27 O2 Del Method BiPAP 03/01/25 14:25 O2 Flow Rate 40 03/01/25 14:25 FiO2 40 03/01/25 14:27 Weight last 48 hrs Weight 82 kg Weight 78.471 kg Physical Exam Const: COMMON NORMALS: no acute distress and patient oriented x3 HENMT: COMMON NORMALS: normocephalic HEAD & SCALP: normocephalic Neck/C-Spine: COMMON NORMALS: no JVD Resp: AUSCULTATION: crackles and wheezes OTHER: Tachypnea, tachycardia, intercostal retractions, suprasternal retractions, nasal flaring, dependent on BiPAP Cardio: COMMON NORMALS: regular rate, regular rhythm, S1 normal heart sound present and S2 normal heart sound present RATE: regular rate RHYTHM: regular rhythm HEART SOUNDS: S1 normal heart sound present and S2 normal heart sound present GI: COMMON NORMALS: Normal to inspection, nondistended, normoactive bowel sounds present, Soft to palpation and non-tender Extremity: NARRATIVE EXTREMITY EXAM: No pitting edema Neuro: COMMON NORMALS: patient oriented x3, CN's II-XII intact bilaterally and moves all extremities Psych: COMMON NORMALS: mental status grossly normal Urinary Catheter Management: Santa: Cath Placed During This Visit: yes Urinary Catheter Date of Insertion: 03/01/25 Urinary Catheter Time of Insertion: 14:12 Sepsis: Is patient septic: Yes Focused sepsis exam performed: Yes Focused sepsis exam: DP PT pulses diminished, cap refill greater than 2 seconds, mild mottling bilateral extremities Date exam was performed: 03/01/25 Time exam was performed: 11:00 Data 03/01/25 09:15 03/01/25 09:15 Micro: Microbiology 03/01/25 10:05 Gram Stain - Final Sputum - Expectorated Sputum 03/01/25 09:39 Blood Culture - Preliminary Blood SPECIMEN COLLECTED 03/01/25 09:31 Blood Culture - Preliminary Blood SPECIMEN COLLECTED A&P Assessment and plan (1) Acute hypoxic respiratory failure: (2) Pneumonia: (3) Septic shock: (4) S/P CABG x 4: (5) Congestive heart failure: (6) NSTEMI (non-ST elevated myocardial infarction): Plan Acute hypoxic respiratory failure -Secondary to pneumonia, history of aspiration morning, history of Pseudomonas and Staph aureus follow sputum cultures -COPD -With mild to moderate respiratory distress CT/CT angio chest PE protcl [id number] IMPRESSION: 1. No pulmonary embolism beyond the lobar branches into portions of the segmental branches. 2. Bilateral pneumonia, most significant in the lower lobes and RIGHT middle lobe. 3. Prior CABG. 4. No RIGHT heart strain. Plan -Monitor respiratory status closely -Low threshold for intubation -Continue BiPAP -Precedex -Vancomycin -Zosyn -Levaquin -Blood cultures -Sputum cultures -Monitor respiratory status closely Septic shock -Secondary to pneumonia -Will give her a 2 L LR bolus, given her history of CHF, risk of CHF exacerbation and worsening respiratory failure -Start Levophed to maintain MAP greater than 65 -PICC line order in NSTEMI -Type I versus type II NSTEMI -History of cath in 2020 Diagnostic Findings * Proximal circumflex artery has moderate disease.. * Proximal Left Anterior Descending: Has an area of underexpansion in the proximal stent with 30 to 40% narrowing. LUCIE: 3 flow. * SVG to RCA is occluded. SVG to OM is occluded. * JIANG was not used as a graft.. -Complains of chest pain, no active pain Plan -Serial EKGs, serial troponins, telemetry monitoring -Repeat cardiac echo -Aspirin, statin -Monitor for chest pain History of congestive heart failure, diastolic CHF -Monitor for fluid overload Full code Lovenox for DVT prophylaxis Protonix for GI prophylaxis PDMP PDMP Reviewed: Not Reviewed Attestations Medical Necessity Statement*: Patient requires hospitalization for acute hypoxic respiratory failure, mild to moderate respiratory distress, septic shock, pneumonia, Coding Level of Care Code Critical Care >/= 30 minutes Critical care time (in minutes): 45 The high probability of a clinically significant, sudden or life threatening deterioration, as referenced in this documentation, required my full and direct attention, intervention and personal management. The critical care time shown is in addition to time spent performing any reported separately billable procedures and includes the following: [x] Data and vital sign review and interpretation [x] Patient assessment, examination and intervention [x] Medication orders and management [x] Patient/Family updates as able [x] Care Coordination and Documentation. Diagnoses Acute hypoxic respiratory failure J96.01 Pneumonia J18.9 Septic shock A41.9; R65.21 S/P CABG x 4 Z95.1 Congestive heart failure I50.9 NSTEMI (non-ST elevated myocardial infarction) I21.4
[2025-03-01 14:59] LABS: Estmated Average Glucose 103; Hemoglobin A1C 5.2 % (4.0-6.0)
--- NOTE | 2025-03-01 15:36 | PC.NURSE ---
Family at bedside attempting to feed patient ice chips under bipap. Educated to ask staff for assistance in removal of bipap if patient would like ice chips.
[2025-03-01 16:31] LABS: INR 0.87 (0.8-1.2)
[2025-03-01 16:38] LABS: Lactic Sepsis W/Reflex 2.6 mmol/L (0.5-2.2)
[2025-03-01] MEDS: norepinephrine 4 MG/250 ML BAG 30 MG IV (16:57)
[2025-03-01 18:04] LABS: Reflex Lactate Order REFLEX LACTIC ORDERD
[2025-03-01] MEDS: TRANYLCYPROMINE 10 MG PO (18:12)
[2025-03-01] MEDS: topiramate 100 mg Tablet 50 MG PO (18:12)
[2025-03-01] MEDS: ALPRAZolam 0.5 mg Tablet 1 MG PO (18:13)
[2025-03-01 19:23] LABS: Lactic Acid level (Lactate) 1.3 mmol/L (0.5-2.2)
[2025-03-01] MEDS: acetaminophen 325 mg Tablet 650 MG PO (19:54)
[2025-03-01] MEDS: norepinephrine 4 MG/250 ML BAG 7.5 MG IV (20:44)
[2025-03-01] MEDS: atorvastatin 40 mg Tablet 20 MG PO (21:50)
--- NOTE | 2025-03-01 22:29 | PC.NURSE ---
pt stated has taken dilaudid before and did not experience an adverse reaction to medication.
[2025-03-01] MEDS: HYDROmorphone 0.5 MG/0.5 ML INJ IVP (23:13)
[2025-03-02] VITALS (61 sets, daily range): BP systolic 87–135; BP diastolic 32–82; PULSE 65–99; RESP 12–38; TEMP 36.1–36.9; O2SAT 91–99; BMI 27.4
[2025-03-02] MEDS: ipratropium-albuterol 3 mL Neb INHALATION ×6 (00:57→20:32)
[2025-03-02] MEDS: piperacillin-tazobactam 3.375 GM in sodium chloride 0.9% (plus) 50 ML IV ×3 (01:34→17:48)
[2025-03-02 04:29] LABS: Hematocrit 32.9 % (36-47); Mean Corpuscular HGB Conc 31.6 g/dL (30-55); Mean Corpuscular Hemoglobin 30.3 pg (27-33); Mean Corpuscular Volume 95.9 fl (85-98); Mean Platelet Volume 9.8 fL (7.4-10.4); Platelet Count 194 10^3/cmm (157-399); Red Blood Count 3.43 10^6/uL (3.85-5.65); Red Cell Distribution Width 14.4 % (12.1-15.1); White Blood Count 21.18 10^3/uL (3.29-11.43)
[2025-03-02 04:53] LABS: C Reactive Protein 186.3 mg/L (0.0-4.9)
[2025-03-02 04:54] LABS: Alanine Aminotransferase 185 U/L (0-33); Albumin Level 3.2 g/dL (3.5-5.2); Alkaline Phosphatase 79 U/L (35-105); Blood Urea Nitrogen 17 mg/dL (8-23); Calcium 8.5 mg/dL (8.5-10.5); Carbon Dioxide 22 mmol/L (22-29); Chloride 109 mmol/L (98-107); Creatinine Clr Calc Pharmacy 73.4866; Glomerular Filtration Rate 70.9 mL/min (90-130); Glucose 117 mg/dL (65-115); Magnesium 1.9 mg/dL (1.7-2.3); Osmolality Calculated 295 mOsm/kg (285-295); Sodium 141 mmol/L (136-145); Total Bilirubin 0.4 mg/dL (0.15-1.2); Total Protein 6.2 g/dL (6.6-8.7)
[2025-03-02 04:55] LABS: Anion Gap 14.3 (5-19); Aspartate Amino Transferase 238 U/L (0-32); Lactate (Lactic Acid level) 1.3 mmol/L (0.5-2.2); Potassium 4.3 mmol/L (3.5-5.1)
[2025-03-02 04:56] LABS: Procalcitonin 11.93 ng/mL (0-0.5)
[2025-03-02 05:07] LABS: Absolute Segmented Neutrophil 13.1 10/cmm (1.6-7.1); Eosinophils 0 %; Lymphocytes 3 %; Monocytes Absolute 1.5 10^3/cmm (0.1-0.6); NT Pro B Type Natriuretic Pept 4789 pg/mL (0-125); Segmented Neutrophils 62 %; Slide Review Slide Review Perform; Total Cells Counted 100 (0-100)
[2025-03-02 05:08] LABS: Absolute Neutrophil 17.2 10^3/cmm (1.4-6.5); Platelet Estimate Normal (Normal)
[2025-03-02] MEDS: methylPREDNISolone sod succ 40 mg/mL INJ IVP ×3 (05:21→20:38)
[2025-03-02] MEDS: ALPRAZolam 0.5 mg Tablet 1 MG PO ×2 (05:22→20:37)
[2025-03-02] MEDS: aspirin 81 mg EC Tablet PO (05:22)
[2025-03-02] MEDS: HYDROmorphone 0.5 MG/0.5 ML INJ IVP ×3 (05:22→20:40)
[2025-03-02] MEDS: budesonide 0.5 mg/2 mL Neb INHALATION ×2 (07:45→20:32)
--- NOTE | 2025-03-02 08:59 | PC.NURSE ---
Dr. Hatch gave verbal orders to increase diet to dys level 4, moderate thick liquids. Order placed. See chart
[2025-03-02] MEDS: topiramate 100 mg Tablet 50 MG PO (09:26)
[2025-03-02] MEDS: clopidogrel 75 mg Tablet PO (09:26)
[2025-03-02] MEDS: TRANYLCYPROMINE 10 MG PO ×2 (09:26→17:58)
[2025-03-02] MEDS: VANCOMYCIN ADD-Vantage 1,000 MG in 0.9% NaCl ADD-Vantage 250 ML 250 MG IV ×2 (09:29→20:39)
[2025-03-02] MEDS: norepinephrine 4 MG/250 ML BAG 15 MG IV (09:40)
[2025-03-02] MEDS: levofloxacin-dextrose 5 % 750 MG/150 ML PREMIX 100 MG IV (13:13)
[2025-03-02] MEDS: pantoprazole 40 mg SDV IVP (13:13)
[2025-03-02] MEDS: enoxaparin 40 mg/0.4 mL Syringe SUBCUT (13:13)
[2025-03-02 15:04] LABS: MRSA PCR OZH (swab) NOT DETECTED (Not Detecte)
--- NOTE | 2025-03-02 16:13 | P.PN_ITS ---
Subjective 2 Subjective: Patient was seen this morning, currently on 4 Levophed, alert oriented x 3, following all commands, does have complaints of shortness of breath, tachypnea, nasal flaring, O2 sats do drop into the 80s upon discussion with patient, she reports that she is on aspiration precautions at home, she is on a dysphagia diet at home, Vitals/I&O/Wt Last Vital Signs Temp 97.6 F 03/02/25 12:30 Pulse 79 03/02/25 15:40 Resp 22 H 03/02/25 15:40 BP 126/70 03/02/25 12:30 Pulse Ox 95 03/02/25 15:40 O2 Del Method Nasal Cannula 03/02/25 15:40 O2 Flow Rate 3 03/02/25 15:40 FiO2 40 03/01/25 16:10 03/02/25 03/02/25 03/02/25 06:59 14:59 22:59 Intake Total 449.625 / 2961.125 663.75 / 663.75 150 / 813.75 Output Total 1800 / 1800 Balance -1350.375 / 1161.125 663.75 / 663.75 150 / 813.75 Weight last 48 hrs Weight 82 kg Weight 82 kg Weight 78.471 kg Physical Exam 2 Const: COMMON NORMALS: no acute distress and patient oriented x3 Resp: COMMON NORMALS: normal respiratory effort, No retractions and No use of accessory muscles AUSCULTATION: crackles and wheezes Cardio: COMMON NORMALS: regular rate, regular rhythm, S1 normal heart sound present and S2 normal heart sound present RATE: regular rate RHYTHM: r egular rhythm HEART SOUNDS: S1 normal heart sound present and S2 normal heart sound present GI: COMMON NORMALS: Normal to inspection, nondistended, normoactive bowel sounds present and non-tender Extremity: COMMON NORMALS: no pedal edema Neuro: COMMON NORMALS: patient oriented x3 Psych: COMMON NORMALS: mental status grossly normal Urinary Catheter Management: Santa: Cath Placed During This Visit: yes Reason for Continuing Indwelling Catheter: Accurate Measurement of Urinary Output in Critically Ill Patients Urinary Catheter Date of Insertion: 03/01/25 Urinary Catheter Time of Insertion: 14:12 Sepsis: Is patient septic: Yes Focused sepsis exam performed: Yes F ocused sepsis exam: DP PT pulses palpable, cap refill greater than 2 seconds, no mottling lower extremities Date exam was performed: 03/02/25 Time exam was performed: 09:00 Data 03/02/25 04:05 03/02/25 04:05 Micro: Microbiology 03/01/25 20:30 Sputum Culture - Preliminary Sputum - Expectorated Sputum 03/01/25 10:05 Gram Stain - Final Sputum - Expectorated Sputum Sputum Culture - Preliminary Gram Negative Rods 03/01/25 09:39 Blood Culture - Preliminary Blood NEGATIVE TO DATE 03/01/25 09:31 Blood Culture - Preliminary Blood NEGATIVE TO DATE A&P Assessment and plan (1) Acute hypoxic respiratory failure: (2) Pneumonia: (3) Septic shock: (4) S/P CABG x 4: (5) Congestive heart failure: (6) NSTEMI (non-ST elevated myocardial infarction): Plan Acute hypoxic respiratory failure -Secondary to pneumonia, history of aspiration morning, history of Pseudomonas and Staph aureus follow sputum cultures -COPD -With mild to moderate respiratory distress CT/CT angio chest PE protcl [id number] IMPRESSION: 1. No pulmonary embolism beyond the lobar branches into portions of the segmental branches. 2. Bilateral pneumonia, most significant in the lower lobes and RIGHT middle lobe. 3. Prior CABG. 4. No RIGHT heart strain. Plan -Monitor respiratory status closely -Low threshold for intubation -Continue BiPAP as needed during the day, scheduled during the night -Precedex for anxiety -Vancomycin -Zosyn -Levaquin -Blood cultures -Sputum cultures -Monitor respiratory status closely Concerns for aspiration pneumonia -Speech therapy eval -Aspiration precautions -Dysphagia level 4 diet, mild thickening Septic shock -Secondary to pneumonia -Continue Levophed - maintain MAP greater than 65 -PICC line order in NSTEMI -Type I versus type II NSTEMI -History of cath in 2020 Diagnostic Findings * Proximal circumflex artery has moderate disease.. * Proximal Left Anterior Descending: Has an area of underexpansion in the proximal stent with 30 to 40% narrowing. LUCIE: 3 flow. * SVG to RCA is occluded. SVG to OM is occluded. * JIANG was not used as a graft.. -Complains of chest pain, no active pain Plan -Serial EKGs, serial troponins, telemetry monitoring -Repeat cardiac echo pending -Aspirin, statin -Monitor for chest pain History of congestive heart failure, diastolic CHF -Monitor for fluid overload Full code Lovenox for DVT prophylaxis Protonix for GI prophylaxis Plan for today, continue IV antibiotics, continue Levophed, will keep on bedrest, monitor respiratory status closely BiPAP as needed during the day, scheduled during the night, PDMP PDMP Reviewed: Not Reviewed Attestations 2 Medical Necessity Statement*: Patient requires hospitalization for acute hypoxic respiratory failure, septic shock, NSTEMI, Coding Level of Care Code Critical Care >/= 30 minutes Critical care time (in minutes): 40 The high probability of a clinically significant, sudden or life threatening deterioration, as referenced in this documentation, required my full and direct attention, intervention and personal management. The critical care time shown is in addition to time spent performing any reported separately billable procedures and includes the following: [x] Data and vital sign review and interpretation [x ] Patient assessment, examination and intervention [x] Medication orders and management [x] Patient/Family updates as able [x] Care Coordination and Documentation. Diagnoses Acute hypoxic respiratory failure J96.01 Pneumonia J18.9 Septic shock A41.9; R65.21 S/P CABG x 4 Z95.1 Congestive heart failure I50.9 NSTEMI (non-ST elevated myocardial infarction) I21.4
[2025-03-02] MEDS: atorvastatin 40 mg Tablet 20 MG PO (20:35)
[2025-03-03] VITALS (25 sets, daily range): BP systolic 92–125; BP diastolic 49–70; PULSE 65–88; RESP 12–28; TEMP 36.4–37; O2SAT 80–99
[2025-03-03] MEDS: piperacillin-tazobactam 3.375 GM in sodium chloride 0.9% (plus) 50 ML IV ×3 (00:05→17:25)
[2025-03-03] MEDS: ipratropium-albuterol 3 mL Neb INHALATION ×5 (04:40→21:34)
[2025-03-03] MEDS: methylPREDNISolone sod succ 40 mg/mL INJ IVP (04:40)
[2025-03-03 04:51] LABS: Basophils # 0.1 10^3/uL (0.0-0.1); Basophils % 0.4 %; Eosinophils # 0.2 10^3/uL (0.0-0.8); Eosinophils % 0.9 %; Hematocrit 28.7 % (36-47); Lymphocytes # 0.8 10^3/uL (0.8-4.8); Lymphocytes % 4.6 %; Mean Corpuscular HGB Conc 30.7 g/dL (30-55); Mean Corpuscular Hemoglobin 29.9 pg (27-33); Mean Corpuscular Volume 97.6 fl (85-98); Mean Platelet Volume 10.7 fL (7.4-10.4); Monocytes # 1.1 10^3/uL (0.2-0.9); Monocytes % 6.2 %; Neutrophils # 12.57 10^3/uL (1.8-7.7); Nucleated Red Blood Cells % 0 %; Platelet Count 169 10^3/cmm (157-399); Red Blood Count 2.94 10^6/uL (3.85-5.65); Red Cell Distribution Width 14.6 % (12.1-15.1); White Blood Count 17.01 10^3/uL (3.29-11.43)
[2025-03-03] MEDS: aspirin 81 mg EC Tablet PO (05:02)
[2025-03-03 05:13] LABS: Lactate (Lactic Acid level) 1.2 mmol/L (0.5-2.2)
[2025-03-03 05:14] LABS: Alanine Aminotransferase 103 U/L (0-33); Albumin Level 2.8 g/dL (3.5-5.2); Alkaline Phosphatase 75 U/L (35-105); Blood Urea Nitrogen 20 mg/dL (8-23); Calcium 8.7 mg/dL (8.5-10.5); Carbon Dioxide 23 mmol/L (22-29); Chloride 109 mmol/L (98-107); Creatinine Clr Calc Pharmacy 74.8502; Globulin 2.9 g/dL (1.3-4.6); Glomerular Filtration Rate 98.8 mL/min (90-130); Glucose 150 mg/dL (65-115); Magnesium 1.9 mg/dL (1.7-2.3); Osmolality Calculated 293 mOsm/kg (285-295); Phosphorus 2.2 mg/dL (2.5-4.5); Sodium 139 mmol/L (136-145); Total Bilirubin 0.3 mg/dL (0.15-1.2); Total Protein 5.7 g/dL (6.6-8.7)
[2025-03-03 05:19] LABS: C Reactive Protein 207.6 mg/L (0.0-4.9)
[2025-03-03 05:21] LABS: Procalcitonin 8.88 ng/mL (0-0.5)
[2025-03-03 05:33] LABS: Anion Gap 10.8 (5-19); Aspartate Amino Transferase 67 U/L (0-32); Potassium 3.8 mmol/L (3.5-5.1)
[2025-03-03 06:01] LABS: Slide Review Slide Review Perform
[2025-03-03] MEDS: budesonide 0.5 mg/2 mL Neb INHALATION ×2 (08:24→21:34)
[2025-03-03] MEDS: VANCOMYCIN ADD-Vantage 1,000 MG in 0.9% NaCl ADD-Vantage 250 ML 250 MG IV ×2 (08:49→20:39)
[2025-03-03] MEDS: TRANYLCYPROMINE 10 MG PO ×2 (08:52→17:25)
[2025-03-03] MEDS: clopidogrel 75 mg Tablet PO (08:52)
--- NOTE | 2025-03-03 08:56 | PC.NURSE ---
Addendum entered by AG Garzon 03/03/25 09:27: Call light was in reach as well when patient was attempting to reach items she believed were in the floor and did not use it. Original Note: Patient found asleep with breathing treatment removed and vape in the floor. Removed vape from room and given to charge nurse. Patient then found to be reaching over edge of bed and when staff attempted to help patient sit back upright, she began to say where did my black pen go? Went back into patients room with a nursing faculty to administer medications and patient very upset asking for her black pen repeatedly. I said did you mean your vape? to which the patient said Yes, but I dont use it and you cant take it from me. Patient educated this is a tobacco free facility and how harmful that is as well with her penumonia. Patient also reassured it would be returned upon discharge. She stated she wanted it back now, I told her I could have a shellfish farming supervisor speak with her. She said find someone who is not biased to talk to me. She then became tearful and refused breakfast and said get that nasty shit out of my room I do not want to eat that and do not understand why I cant eat regular food.
--- NOTE | 2025-03-03 13:23 | PC.NURSE ---
Report called to [facility], patient taken up to MS at [phone]
[2025-03-03] MEDS: pantoprazole 40 mg SDV IVP (14:35)
[2025-03-03] MEDS: enoxaparin 40 mg/0.4 mL Syringe SUBCUT (14:36)
[2025-03-03] MEDS: ALPRAZolam 0.5 mg Tablet 1 MG PO ×2 (14:36→22:00)
--- NOTE | 2025-03-03 15:26 | P.PN_ITS ---
Subjective 2 Subjective: Patient was seen this morning, she is off Levophed, alert oriented x 3, following all commands, he is upset as we have removed her vape device from her, she denies using it in the hospital, discussed hospital policy, she voiced understanding, all questions answered Vitals/I&O/Wt Last Vital Signs Temp 97.7 F 03/03/25 12:06 Pulse 80 03/03/25 12:06 Resp 27 H 03/03/25 12:06 BP 99/61 03/03/25 12:06 Pulse Ox 98 03/03/25 12:06 O2 Del Method Nasal Cannula 03/03/25 13:53 O2 Flow Rate 3 03/03/25 12:06 FiO2 40 03/01/25 16:10 03/03/25 03/03/25 03/03/25 06:59 14:59 22:59 Intake Total 770 / 2170.875 780 / 780 Output Total 450 / 1100 400 / 400 Balance 320 / 1070.875 380 / 380 Weight last 48 hrs Weight 85.3 kg Weight 82 kg Physical Exam 2 Const: COMMON NORMALS: no acute distress and patient oriented x3 Resp: COMMON NORMALS: normal respiratory effort, No retractions, No use of accessory muscles and clear to auscultation bilaterally AUSCULTATION: clear to auscultation bilaterally Cardio: COMMON NORMALS: regular rate, regular rhythm, S1 normal heart sound present and S2 normal heart sound present RATE: regular rate RHYTHM: r egular rhythm HEART SOUNDS: S1 normal heart sound present and S2 normal heart sound present GI: COMMON NORMALS: Normal to inspection, nondistended, normoactive bowel sounds present and non-tender Extremity: COMMON NORMALS: no pedal edema Neuro: COMMON NORMALS: patient oriented x3 Psych: COMMON NORMALS: mental status grossly normal Urinary Catheter Management: Santa: Cath Placed During This Visit: yes Reason for Continuing Indwelling Catheter: Accurate Measurement of Urinary Output in Critically Ill Patients Urinary Catheter Date of Insertion: 03/01/25 Urinary Catheter Time of Insertion: 14:12 Data 03/03/25 04:30 03/03/25 04:30 Micro: Microbiology 03/01/25 20:30 Sputum Culture - Preliminary Sputum - Expectorated Sputum Yeast species Gram Negative Rods Strep agalactiae - (group b) 03/01/25 10:05 Gram Stain - Final Sputum - Expectorated Sputum Sputum Culture - Final Pseudomonas aeruginosa A&P Assessment and plan (1) Acute hypoxic respiratory failure: (2) Pneumonia: (3) Septic shock: (4) S/P CABG x 4: (5) Congestive heart failure: (6) NSTEMI (non-ST elevated myocardial infarction): Plan Acute hypoxic respiratory failure -Secondary to pneumonia, history of aspiration morning, history of Pseudomonas and Staph aureus follow sputum cultures -COPD -With mild to moderate respiratory distress CT/CT angio chest PE protcl [id number] IMPRESSION: 1. No pulmonary embolism beyond the lobar branches into portions of the segmental branches. 2. Bilateral pneumonia, most significant in the lower lobes and RIGHT middle lobe. 3. Prior CABG. 4. No RIGHT heart strain. Plan -Monitor respiratory status closely -Low threshold for intubation -Continue BiPAP as needed during the day, scheduled during the night -Precedex for anxiety -Vancomycin -Zosyn -Blood cultures -Sputum cultures -Monitor respiratory status closely -Will order fungal studies, PJP PCR, Aspergillus, fungal sputum studies Concerns for aspiration pneumonia -Speech therapy eval -Aspiration precautions -Speech therapy, advance diet as tolerated Septic shock, resolved -Secondary to pneumonia -Continue Levophed, off Levophed - maintain MAP greater than 65 -PICC line order in NSTEMI -Type I versus type II NSTEMI -History of cath in 2020 Diagnostic Findings * Proximal circumflex artery has moderate disease.. * Proximal Left Anterior Descending: Has an area of underexpansion in the proximal stent with 30 to 40% narrowing. LUCIE: 3 flow. * SVG to RCA is occluded. SVG to OM is occluded. * JIANG was not used as a graft.. -Complains of chest pain, no active pain Plan -Serial EKGs, serial troponins, telemetry monitoring -Repeat cardiac echo pending -Aspirin, statin -Monitor for chest pain History of congestive heart failure, diastolic CHF -Monitor for fluid overload Full code Lovenox for DVT prophylaxis Protonix for GI prophylaxis Plan for today, continue IV antibiotics moved to medical floors, BiPAP as needed, continue IV antibiotics, fungal studies, start midodrine PDMP PDMP Reviewed: Not Reviewed Attestations 2 Medical Necessity Statement*: Patient requires hospitalization for pneumonia, history of Pseudomonas pneumonia, septic shock, NSTEMI Diagnoses Acute hypoxic respiratory failure J96.01 Pneumonia J18.9 Septic shock A41.9; R65.21 S/P CABG x 4 Z95.1 Congestive heart failure I50.9 NSTEMI (non-ST elevated myocardial infarction) I21.4
[2025-03-03] MEDS: midodrine 5 mg TABLET 10 MG PO ×2 (15:54→23:23)
[2025-03-03] MEDS: nicotine 21 mg Patch 1 PATCH TRANSDERMA (15:54)
[2025-03-03] MEDS: topiramate 100 mg Tablet 50 MG PO (17:25)
[2025-03-03] MEDS: atorvastatin 40 mg Tablet 20 MG PO (20:40)
[2025-03-03] MEDS: baclofen 10 mg Tablet PO (20:40)
[2025-03-03] MEDS: acetaminophen 325 mg Tablet 650 MG PO (20:40)
[2025-03-04] VITALS (10 sets, daily range): BP systolic 107–137; BP diastolic 57–70; PULSE 54–84; RESP 15–24; TEMP 36.4–36.7; O2SAT 90–92; BMI 28.5
[2025-03-04] MEDS: ipratropium-albuterol 3 mL Neb INHALATION ×4 (01:07→20:28)
[2025-03-04] MEDS: piperacillin-tazobactam 3.375 GM in sodium chloride 0.9% (plus) 50 ML IV ×3 (01:15→17:20)
[2025-03-04 04:57] LABS: Basophils % 0.2 %; Eosinophils % 0.1 %; Hematocrit 30.1 % (36-47); Lymphocytes % 9.1 %; Mean Corpuscular HGB Conc 31.6 g/dL (30-55); Mean Corpuscular Hemoglobin 29.9 pg (27-33); Mean Corpuscular Volume 94.7 fl (85-98); Mean Platelet Volume 9.8 fL (7.4-10.4); Monocytes # 0.8 10^3/uL (0.2-0.9); Monocytes % 3.6 %; Neutrophils # 19.27 10^3/uL (1.8-7.7); Neutrophils % 86.5 %; Nucleated Red Blood Cells % 0 %; Platelet Count 212 10^3/cmm (157-399); Red Blood Count 3.18 10^6/uL (3.85-5.65); Red Cell Distribution Width 14.7 % (12.1-15.1)
[2025-03-04 05:22] LABS: Alanine Aminotransferase 77 U/L (0-33); Albumin Level 3.1 g/dL (3.5-5.2); Alkaline Phosphatase 74 U/L (35-105); Anion Gap 13.1 (5-19); Aspartate Amino Transferase 32 U/L (0-32); Blood Urea Nitrogen 21 mg/dL (8-23); Calcium 8.9 mg/dL (8.5-10.5); Carbon Dioxide 22 mmol/L (22-29); Chloride 111 mmol/L (98-107); Creatinine Clr Calc Pharmacy 74.8398; Globulin 2.9 g/dL (1.3-4.6); Glomerular Filtration Rate 70.9 mL/min (90-130); Glucose 89 mg/dL (65-115); Magnesium 1.8 mg/dL (1.7-2.3); Osmolality Calculated 298 mOsm/kg (285-295); Phosphorus 1.8 mg/dL (2.5-4.5); Potassium 3.1 mmol/L (3.5-5.1); Procalcitonin 5.92 ng/mL (0-0.5); Sodium 143 mmol/L (136-145); Total Bilirubin 0.3 mg/dL (0.15-1.2)
[2025-03-04 05:23] LABS: C Reactive Protein 85.7 mg/L (0.0-4.9); Lactate (Lactic Acid level) 1.4 mmol/L (0.5-2.2)
[2025-03-04 05:28] LABS: NT Pro B Type Natriuretic Pept 10488 pg/mL (0-125)
[2025-03-04] MEDS: baclofen 10 mg Tablet PO (06:40)
[2025-03-04] MEDS: ALPRAZolam 0.5 mg Tablet 1 MG PO ×2 (06:40→20:04)
[2025-03-04] MEDS: aspirin 81 mg EC Tablet PO (06:40)
--- NOTE | 2025-03-04 07:28 | CT_ITS ---
WS: [id number] CT HEAD NONCONTRAST HISTORY: Fall TECHNIQUE: Contiguous axial imaging performed through the brain. Bone and soft tissue windows. Sagittal and coronal reformats reviewed. All CT scans at [facility] use at least one of these dose optimization techniques: automated exposure control; mA and/or kV adjustment per patient size (includes targeted exams where dose is matched to clinical indication); or iterative reconstruction. DLP: 1113.38 mGy.cm COMPARISON: 04/02/2024 No acute intracranial hemorrhage, midline shift or mass effect. Very mild global volume loss and small vessel disease. No prior infarct. No edema. Ventricles: Normal size with no hydrocephalus. No inferior displacement of the cerebellar tonsils. Paranasal sinuses: As visualized are clear. Mastoid air cells: Well pneumatized. Calvarium and scalp: Skull is intact with no soft tissue edema or swelling. CT/CT head wo con* [id number] IMPRESSION: 1. No acute intracranial hemorrhage or edema. 2. Mild volume loss and small vessel disease, stable. 3. No skull fracture or soft tissue contusion.
--- NOTE | 2025-03-04 07:28 | XR_ITS ---
WS: [email or web address] XR shoulder LT 1V [id number] REASON FOR EXAM: Fall FINDINGS: Single nonstandard view is limited in sensitivity. No definite fracture identified. AC joint intact. Moderate osteoarthropathy of the glenohumeral joint. XR/XR shoulder LT 1V [id number] IMPRESSION: No acute fracture identified however the examination is limited and additional standard imaging is recommended to exclude nondisplaced surgical neck fracture of the humerus as clinically warranted.
--- NOTE | 2025-03-04 07:30 | PC.NURSE ---
Patient was screaming from room help and discovered on the floor, laying on her left side with left arm pinned and underwear at her ankles. Patient stated she fell getting on the bedside commode, landing on her shoulder and nose. This nurse, VALENCIA Dawn and AJIT Vitale helped patient to a sitting position, then the three of us assisted the patient to the bed. The patient complained that her nose hurt, shoulder and knee hurt. A scrape was noted on her left knee. A set of vitals were done on the patient and the bed alarm was turned on. Dr. Barroso was called and gave orders for a head CT w/o contrast, X-ray of the right shoulder and Q4 neurochecks. Technical Operations Manager was unable to be reached by this nurse, day and night charge nurses (Kaye and Leslye) were made aware of this.
--- NOTE | 2025-03-04 08:49 | USCV_ITS ---
Rebecca Coombs Age: 69 Gender: F : 1955 Exam Date: 03/04/2025 10:46 Ordering Phys: David Hatch MD Technologist: Exam [place] [facility] [place]: chf BP: 130 / 78 HR: 70 Rhythm: Sinus Technical Quality: Adequate MEASUREMENTS (Male / Female) Normal Values 2D ECHO LV Diastolic Diameter PLAX 5.1 cm 4.2 - 5.9 / 3.9 - 5.3 cm IVS Diastolic Thickness 1.5 cm 0.6 - 1.0 / 0.6 - 0.9 cm IVS Systolic Thickness 1.9 cm LVPW Diastolic Thickness 1.2 cm 0.6 - 1.0 / 0.6 - 0.9 cm LVPW Systolic Thickness 1.7 cm LV Ejection Fraction 2D Teich 68.5 % LV Ejection Fraction MOD 4C 62.2 % LV Ejection Fraction MOD 2C 61.3 % LV Ejection Fraction 2C AL 61.5 % LA Diameter 4.1 cm RA Systolic Volume 4C AL 50.1 ml RA Systolic Volume 4C MOD 47.5 ml Aorta at Sinotubular Diameter 3.2 cm M-MODE LA Ao Ratio MM 1.2 AV Cusp Separation MM 2.5 cm DOPPLER AV Peak Velocity 115.0 cm/s LVOT Peak Velocity 93.0 cm/s AV Area Cont Eq vti 3.1 cm squared AV Area Cont Eq pk 2.6 cm squared MV Peak Velocity 136.0 cm/s TV Peak Velocity 226.5 cm/s TR Peak Velocity 313.0 cm/s TR Peak Gradient 39.2 mmHg TV Peak E Velocity 110.0 cm/s PV Peak Velocity 114.0 cm/s FINDINGS Left Ventricle Normal left ventricular size, systolic function and wall thickness, with no regional wall motion abnormalities. Left ventricular ejection fraction is estimated at 62 %. Grade II/IV diastolic dysfunction, moderately elevated filling pressures. Right Ventricle The right ventricle is normal in size and function. Right Atrium The right atrium is normal in size. Left Atrium Moderately increased left atrial size. Mitral Valve Moderately thickened mitral valve. Moderate mitral annular calcification. No mitral valve stenosis. Trace mitral valve regurgitation. Aortic Valve Moderate aortic valve calcification. No aortic valve stenosis. No aortic valve regurgitation. Tricuspid Valve Structurally normal tricuspid valve without significant stenosis or regurgitation. Pulmonary artery systolic pressure is normal. Pulmonic Valve Structurally normal pulmonic valve without significant stenosis. There is no pulmonic regurgitation. Pericardium Normal pericardium without effusion. Aorta Normal ascending aorta dimension. IVC The inferior vena cava appears normal. CONCLUSIONS Normal left ventricular size, systolic function and wall thickness, with no regional wall motion abnormalities. Left ventricular ejection fraction is estimated at 62 %. Grade II/IV diastolic dysfunction, moderately elevated filling pressures. There is no pericardial effusion. No significant valve abnormalities. Right atrial pressure is around 5 mm of mercury. Mirlande Nowak MD (Electronically Signed) Final Date: 04 March 2025 14:01 S
--- NOTE | 2025-03-04 08:50 | XR_ITS ---
WS: [email or web address] XR chest 1V portable [id number] REASON FOR EXAM: sob FINDINGS: Compared to the examination of 03/01/2025 the diffuse lung opacities in both lower lung kothari undergoing resolution. Moderate residual remains. No new findings. XR/XR chest 1V portable [id number] IMPRESSION: Resolving chest abnormality as above.
--- NOTE | 2025-03-04 09:11 | XR_ITS ---
WS: [email or web address] XR ankle LT min 3V* [id number] REASON FOR EXAM: post fall FINDINGS: Small bony fragments adjacent to the apex of the lateral malleolus most likely related to old lateral collateral ligamentous injury however, small acute avulsion fracture cannot be excluded. Correlate clinically. No other focal bone abnormality. The joint spaces of the left ankle are intact and well preserved. XR/XR ankle LT min 3V* [id number] IMPRESSION: Abnormality of the lateral malleolus as above. Most likely chronic.
[2025-03-04] MEDS: midodrine 5 mg TABLET 10 MG PO ×2 (09:14→15:09)
[2025-03-04] MEDS: clopidogrel 75 mg Tablet PO (09:15)
[2025-03-04] MEDS: predniSONE 20 mg Tablet 40 MG PO (09:15)
[2025-03-04] MEDS: topiramate 100 mg Tablet 50 MG PO ×2 (09:16→17:20)
[2025-03-04] MEDS: TRANYLCYPROMINE 10 MG PO ×2 (09:20→18:18)
[2025-03-04] MEDS: nicotine 21 mg Patch 1 PATCH TRANSDERMA (09:23)
--- NOTE | 2025-03-04 11:41 | XR_ITS ---
WS: [email or web address] XR elbow LT 2V [id number] REASON FOR EXAM: fall FINDINGS: No acute fracture. The joint spaces of the left elbow are intact and well preserved. No soft tissue abnormality. XR/XR elbow LT 2V [id number] IMPRESSION: No acute abnormality.
--- NOTE | 2025-03-04 11:41 | XR_ITS ---
WS: [email or web address] XR hip LT 2-3V wo/w pel* [id number] REASON FOR EXAM: fall FINDINGS: No acute fracture. Iliac bone, superior and inferior pubic ramus are intact. Femoral neck intact. Significant narrowing of the posterior inferior joint space with mild subchondral sclerosis of the acetabulum. Significant osteophytosis of the femoral head. No soft tissue abnormality. XR/XR hip LT 2-3V wo/w pel* [id number] IMPRESSION: No acute abnormality. Moderate osteoarthritis of the left hip.
--- NOTE | 2025-03-04 11:41 | XR_ITS ---
WS: [email or web address] XR knee LT 1-2V [id number] REASON FOR EXAM: fall FINDINGS: No acute fracture. Mild narrowing of the medial joint space with mild subchondral sclerosis. Mild narrowing of the lateral knee joint space with minimal subchondral sclerosis. Patellofemoral joint space appears intact without significant narrowing. Calcification of both the lateral and medial meniscus. XR/XR knee LT 1-2V [id number] IMPRESSION: No acute abnormality. Mild osteoarthritis. The calcification of the menisci suggests CPPD.
[2025-03-04] MEDS: VANCOMYCIN ADD-Vantage 1,000 MG in 0.9% NaCl ADD-Vantage 250 ML 250 MG IV (12:34)
[2025-03-04] MEDS: potassium chloride ER 20 mEq Tablet 40 MEQ PO (12:37)
[2025-03-04] MEDS: FUROsemide 10 mg/mL SDV 4mL 40 MG IVP (12:38)
--- NOTE | 2025-03-04 14:10 | P.PN_ITS ---
Subjective 2 Subjective: Patient was seen this morning, she tells me that she was getting up to the side of the bed, when she slipped in her urine, and she fell to the ground, falling on her left side, left side of her head, her nose, left arm fell under her, fell on her left hip, currently she denies any significant pain, I palpated, her left shoulder, checked range of motion, no significant pain with internal/external rotation, pain above 90 degree arc, no pain palpated on left elbow, with internal/external rotation, no pain throughout her hand, palpated her left hip, no pain with hip extension, flexion, rotation, palpated her left knee, no pain with knee extension, flexion rotation, palpated her left ankle, medial lateral malleolus no point tenderness, no pain with dorsal plantarflexion, eversion, inversion, she tells me she does not have any headache, no blurry vision, no nausea, no vomiting, she continues to have episodes of shortness of breath Vitals/I&O/Wt Last Vital Signs Temp 97.8 F 03/04/25 08:00 Pulse 81 03/04/25 12:20 Resp 20 H 03/04/25 12:10 BP 117/66 03/04/25 08:00 Pulse Ox 90 03/04/25 12:10 O2 Del Method Room Air 03/04/25 12:10 O2 Flow Rate 1 03/04/25 01:07 FiO2 40 03/01/25 16:10 03/03/25 03/04/25 03/04/25 22:59 06:59 14:59 Intake Total 420 / 1200 50 / 1250 Output Total 800 / 1200 Balance -380 / 0 50 / 50 Weight last 48 hrs Weight 85.275 kg Weight 85.3 kg Physical Exam 2 Const: COMMON NORMALS: no acute distress and patient oriented x3 Resp: COMMON NORMALS: normal respiratory effort, No retractions and No use of accessory muscles AUSCULTATION: crackles and wheezes Cardio: COMMON NORMALS: regular rate, regular rhythm, S1 normal heart sound present and S2 normal heart sound present RATE: regular rate RHYTHM: r egular rhythm HEART SOUNDS: S1 normal heart sound present and S2 normal heart sound present GI: COMMON NORMALS: Normal to inspection, nondistended, normoactive bowel sounds present and non-tender Extremity: COMMON NORMALS: no pedal edema Neuro: COMMON NORMALS: patient oriented x3 Psych: COMMON NORMALS: mental status grossly normal Urinary Catheter Management: Santa: Cath Placed During This Visit: yes, but has since been removed by the nurse Reason for Continuing Indwelling Catheter: Decision to DC Catheter Urinary Catheter Date of Insertion: 03/01/25 Urinary Catheter Time of Insertion: 14:12 Date Urinary Catheter Removed: 03/03/25 Time Urinary Catheter Discontinued: 14:00 Data 03/04/25 04:48 03/04/25 04:48 Micro: Microbiology 03/01/25 20:30 Sputum Culture - Preliminary Sputum - Expectorated Sputum Yeast species Gram Negative Rods Strep agalactiae - (group b) 03/01/25 10:05 Gram Stain - Final Sputum - Expectorated Sputum Sputum Culture - Final Pseudomonas aeruginosa A&P Assessment and plan (1) Acute hypoxic respiratory failure: (2) Pneumonia: (3) Septic shock: (4) S/P CABG x 4: (5) Congestive heart failure: (6) NSTEMI (non-ST elevated myocardial infarction): Plan Acute hypoxic respiratory failure -Secondary to pneumonia, history of aspiration morning, history of Pseudomonas and Staph aureus follow sputum cultures -COPD -With mild to moderate respiratory distress CT/CT angio chest PE protcl [id number] IMPRESSION: 1. No pulmonary embolism beyond the lobar branches into portions of the segmental branches. 2. Bilateral pneumonia, most significant in the lower lobes and RIGHT middle lobe. 3. Prior CABG. 4. No RIGHT heart strain. Plan -Monitor respiratory status closely -Low threshold for intubation -Continue BiPAP as needed during the day, scheduled during the night -Precedex for anxiety -Vancomycin -Zosyn -Blood cultures so far no growth -Sputum cultures growing Pseudomonas -Monitor respiratory status closely -Will order fungal studies, PJP PCR, Aspergillus, fungal sputum studies Concerns for aspiration pneumonia -Speech therapy eval -Aspiration precautions -Speech therapy, advance diet as tolerated Septic shock, resolved -Secondary to pneumonia -Continue Levophed, off Levophed - maintain MAP greater than 65 -PICC line -Currently on midodrine NSTEMI -Type I versus type II NSTEMI -History of cath in 2020 Diagnostic Findings * Proximal circumflex artery has moderate disease.. * Proximal Left Anterior Descending: Has an area of underexpansion in the proximal stent with 30 to 40% narrowing. LUCIE: 3 flow. * SVG to RCA is occluded. SVG to OM is occluded. * JIANG was not used as a graft.. -Complains of chest pain, no active pain Plan -Serial EKGs, serial troponins, telemetry monitoring -Repeat cardiac echo pending -Aspirin, statin -Monitor for chest pain History of congestive heart failure, diastolic CHF -Monitor for fluid overload Full code Lovenox for DVT prophylaxis Protonix for GI prophylaxis Plan for today, continue IV antibiotics, moved to medical floors continue midodrine, x-ray of multiple joints to rule out fracture, IV diuresis PDMP PDMP Reviewed: Not Reviewed Attestations 2 Medical Necessity Statement*: Patient requires hospitalization for pneumonia, fluid overload, shortness of breath Diagnoses Acute hypoxic respiratory failure J96.01 Pneumonia J18.9 Septic shock A41.9; R65.21 S/P CABG x 4 Z95.1 Congestive heart failure I50.9 NSTEMI (non-ST elevated myocardial infarction) I21.4
[2025-03-04] MEDS: enoxaparin 40 mg/0.4 mL Syringe SUBCUT (15:09)
[2025-03-04] MEDS: pantoprazole 40 mg SDV IVP (15:09)
--- NOTE | 2025-03-04 17:04 | PC.NURSE ---
this nurse, set pts bed alarm upon leaving room, pt or pts visitors turned off bed alarm themselves, pt transferred herself
[2025-03-04] MEDS: atorvastatin 40 mg Tablet 20 MG PO (20:03)
[2025-03-04] MEDS: budesonide 0.5 mg/2 mL Neb INHALATION (20:28)
[2025-03-05] VITALS (14 sets, daily range): BP systolic 96–149; BP diastolic 51–78; PULSE 53–78; RESP 15–20; TEMP 36.6–36.8; O2SAT 90–95; BMI 28.5
[2025-03-05] MEDS: piperacillin-tazobactam 3.375 GM in sodium chloride 0.9% (plus) 50 ML IV ×3 (00:18→17:38)
[2025-03-05] MEDS: midodrine 5 mg TABLET 10 MG PO ×3 (00:18→15:28)
[2025-03-05 00:23] LABS: Basophils % 0.2 %; Eosinophils % 0.1 %; Hematocrit 29.6 % (36-47); Lymphocytes # 1.8 10^3/uL (0.8-4.8); Lymphocytes % 13.2 %; Mean Corpuscular HGB Conc 31.4 g/dL (30-55); Mean Corpuscular Hemoglobin 29.9 pg (27-33); Mean Corpuscular Volume 95.2 fl (85-98); Mean Platelet Volume 10.3 fL (7.4-10.4); Monocytes # 0.6 10^3/uL (0.2-0.9); Monocytes % 4.8 %; Neutrophils % 80.3 %; Nucleated Red Blood Cells % 0 %; Platelet Count 242 10^3/cmm (157-399); Red Blood Count 3.11 10^6/uL (3.85-5.65); Red Cell Distribution Width 14.7 % (12.1-15.1); White Blood Count 13.21 10^3/uL (3.29-11.43)
[2025-03-05 00:38] LABS: Vancomycin Trough 18.9 ug/mL (10-15)
[2025-03-05 00:39] LABS: Alanine Aminotransferase 63 U/L (0-33); Alkaline Phosphatase 69 U/L (35-105); Anion Gap 13.1 (5-19); Aspartate Amino Transferase 20 U/L (0-32); Blood Urea Nitrogen 20 mg/dL (8-23); C Reactive Protein 58.8 mg/L (0.0-4.9); Calcium 8.8 mg/dL (8.5-10.5); Carbon Dioxide 25 mmol/L (22-29); Chloride 108 mmol/L (98-107); Creatinine Clr Calc Pharmacy 66.5243; Globulin 3.3 g/dL (1.3-4.6); Glomerular Filtration Rate 61.9 mL/min (90-130); Glucose 116 mg/dL (65-115); Magnesium 1.8 mg/dL (1.7-2.3); Osmolality Calculated 300 mOsm/kg (285-295); Phosphorus 2.1 mg/dL (2.5-4.5); Potassium 3.1 mmol/L (3.5-5.1); Sodium 143 mmol/L (136-145); Total Bilirubin 0.3 mg/dL (0.15-1.2); Total Protein 6.3 g/dL (6.6-8.7)
[2025-03-05 00:57] LABS: NT Pro B Type Natriuretic Pept 11629 pg/mL (0-125); Procalcitonin 4.04 ng/mL (0-0.5)
[2025-03-05] MEDS: VANCOMYCIN ADD-Vantage 1,000 MG in 0.9% NaCl ADD-Vantage 250 ML 250 MG IV (01:05)
[2025-03-05] MEDS: aspirin 81 mg EC Tablet PO (06:07)
--- NOTE | 2025-03-05 08:40 | CT_ITS ---
WS: [id number] CT LEFT ANKLE, NONCONTRAST HISTORY: fall, pain Technique: All CT scans at [facility] use at least one of these dose optimization techniques: automated exposure control; mA and/or kV adjustment per patient size (includes targeted exams where dose is matched to clinical indication); or iterative reconstruction. DLP: 170.87 mGy.cm COMPARISON: Radiograph 03/04/2025 Mild diffuse osteopenia. Tiny age-indeterminate avulsion fractures of the very distal fibula. No acute or displaced fractures are identified. Subtalar osteophytes. There is osteophytic ridging around the anterior talar process with small well-corticated loose bodies or osteophytes. Minimal soft tissue edema surrounding the ankle. Posterior tibial artery calcifications. CT/CT ankle LT wo con* [id number] IMPRESSION: 1. No acute or displaced fracture. 2. Age-indeterminate tiny avulsion fractures from the very distal fibula. 3. Mild soft tissue edema
[2025-03-05] MEDS: budesonide 0.5 mg/2 mL Neb INHALATION ×2 (08:59→20:29)
[2025-03-05] MEDS: ipratropium-albuterol 3 mL Neb INHALATION ×4 (09:00→20:29)
[2025-03-05] MEDS: potassium chloride ER 20 mEq Tablet 40 MEQ PO (09:04)
[2025-03-05] MEDS: topiramate 100 mg Tablet 50 MG PO ×2 (09:04→17:39)
[2025-03-05] MEDS: predniSONE 20 mg Tablet 40 MG PO (09:05)
[2025-03-05] MEDS: nicotine 21 mg Patch 1 PATCH TRANSDERMA (09:05)
[2025-03-05] MEDS: acetaminophen 325 mg Tablet 650 MG PO (09:05)
[2025-03-05] MEDS: clopidogrel 75 mg Tablet PO (09:05)
[2025-03-05] MEDS: TRANYLCYPROMINE 10 MG PO ×2 (09:08→17:38)
--- NOTE | 2025-03-05 12:48 | PC.SOCIAL ---
IMM Updated Updated pt on IMM. No questions voiced. Provided pt a copy. Initialed, dated, & timed copy in chart.
--- NOTE | 2025-03-05 13:31 | P.PN_ITS ---
Subjective 2 Subjective: Patient was seen this morning, she is alert oriented x 3, following all commands, her shortness of breath is improving, she is sitting up in the chair, we discussed her fall from yesterday, she really denies any significant pain complaints she ambulated with physical therapy, denies any hip pain, no knee pain, no ankle pain, no headache, no blurry vision. I discussed her ankle x-ray findings, she does tell me that she broke her right ankle, but her left ankle is really not bothering her, no pain with range of motion, no clicking, no popping, we discussed doing an x-ray to be on the safe side, she is in agreement Vitals/I&O/Wt Last Vital Signs Temp 98.2 F 03/05/25 11:51 Pulse 53 L 03/05/25 11:51 Resp 16 03/05/25 11:51 BP 149/54 03/05/25 11:51 Pulse Ox 92 03/05/25 11:51 O2 Del Method Room Air 03/05/25 11:45 O2 Flow Rate 2 03/05/25 08:00 FiO2 40 03/01/25 16:10 03/04/25 03/05/25 03/05/25 22:59 06:59 14:59 Intake Total 340 / 1070 540 / 1610 120 / 120 Balance 340 / 1070 540 / 1610 120 / 120 Weight last 48 hrs Weight 85.275 kg Weight 85.275 kg Physical Exam 2 Const: COMMON NORMALS: no acute distress and patient oriented x3 Resp: COMMON NORMALS: normal respiratory effort, No retractions, No use of accessory muscles and clear to auscultation bilaterally AUSCULTATION: clear to auscultation bilaterally Cardio: COMMON NORMALS: regular rate, regular rhythm, S1 normal heart sound present and S2 normal heart sound present RATE: regular rate RHYTHM: r egular rhythm HEART SOUNDS: S1 normal heart sound present and S2 normal heart sound present GI: COMMON NORMALS: Normal to inspection, nondistended, normoactive bowel sounds present and non-tender Extremity: COMMON NORMALS: no pedal edema Neuro: COMMON NORMALS: patient oriented x3 Psych: COMMON NORMALS: mental status grossly normal Urinary Catheter Management: Santa: Cath Placed During This Visit: yes, but has since been removed by the nurse Reason for Continuing Indwelling Catheter: Decision to DC Catheter Urinary Catheter Date of Insertion: 03/01/25 Urinary Catheter Time of Insertion: 14:12 Date Urinary Catheter Removed: 03/03/25 Time Urinary Catheter Discontinued: 14:00 Data 03/05/25 00:13 03/05/25 00:13 Micro: Microbiology 03/01/25 20:30 Sputum Culture - Final Sputum - Expectorated Sputum Dorita albicans Escherichia coli Strep agalactiae - (group b) A&P Assessment and plan (1) Acute hypoxic respiratory failure: (2) Pneumonia: (3) Septic shock: (4) S/P CABG x 4: (5) Congestive heart failure: (6) NSTEMI (non-ST elevated myocardial infarction): Plan Acute hypoxic respiratory failure -Secondary to pneumonia, history of aspiration morning, history of Pseudomonas and Staph aureus follow sputum cultures -COPD -With mild to moderate respiratory distress CT/CT angio chest PE protcl [id number] IMPRESSION: 1. No pulmonary embolism beyond the lobar branches into portions of the segmental branches. 2. Bilateral pneumonia, most significant in the lower lobes and RIGHT middle lobe. 3. Prior CABG. 4. No RIGHT heart strain. - Sputum cultures growing Pseudomonas, E. coli, group B strep, Dorita Plan -Monitor respiratory status closely -Continue BiPAP as needed during the day, scheduled during the night -Zosyn -Start p.o. Diflucan -Blood cultures so far no growth -Sputum cultures growing Pseudomonas -Monitor respiratory status closely -Will order fungal studies, PJP PCR, Aspergillus, fungal sputum studies Concerns for aspiration pneumonia -Speech therapy eval -Aspiration precautions -Speech therapy, advance diet as tolerated Septic shock, resolved -Secondary to pneumonia -Continue Levophed, off Levophed - maintain MAP greater than 65 -PICC line -Currently on midodrine NSTEMI -Type I versus type II NSTEMI -History of cath in 2020 Diagnostic Findings * Proximal circumflex artery has moderate disease.. * Proximal Left Anterior Descending: Has an area of underexpansion in the proximal stent with 30 to 40% narrowing. LUCIE: 3 flow. * SVG to RCA is occluded. SVG to OM is occluded. * JIANG was not used as a graft.. -Complains of chest pain, no active pain Plan -Serial EKGs, serial troponins, telemetry monitoring -Repeat cardiac echo pending -Aspirin, statin -Monitor for chest pain History of congestive heart failure, diastolic CHF -Status post 1 dose of Lasix -Monitor for fluid overload Cardiac echo CONCLUSIONS Normal left ventricular size, systolic function and wall thickness, with no regional wall motion abnormalities. Left ventricular ejection fraction is estimated at 62 %. Grade II/IV diastolic dysfunction, moderately elevated filling pressures. There is no pericardial effusion. No significant valve abnormalities. Right atrial pressure is around 5 mm of mercury. Fall - Will order CT left ankle Full code Lovenox for DVT prophylaxis Protonix for GI prophylaxis Plan for today, continue IV antibiotics for Pseudomonas pneumonia, continue midodrine, monitor respiratory status closely, patient tells me that she does feel weak, she is agreeable to go to senior living facility, PDMP PDMP Reviewed: Not Reviewed Attestations 2 Medical Necessity Statement*: Patient requires hospitalization for pneumonia, respiratory failure, NSTEMI, Diagnoses Acute hypoxic respiratory failure J96.01 Pneumonia J18.9 Septic shock A41.9; R65.21 S/P CABG x 4 Z95.1 Congestive heart failure I50.9 NSTEMI (non-ST elevated myocardial infarction) I21.4
[2025-03-05] MEDS: fluconazole 100 mg Tablet PO (14:08)
[2025-03-05] MEDS: enoxaparin 40 mg/0.4 mL Syringe SUBCUT (14:08)
[2025-03-05] MEDS: pantoprazole DR 40 mg Tablet PO (14:08)
--- NOTE | 2025-03-05 14:12 | PC.SLP ---
Attempted speech therapy treatment-patient refused
[2025-03-05] MEDS: ALPRAZolam 0.5 mg Tablet 1 MG PO (15:28)
[2025-03-05] MEDS: atorvastatin 40 mg Tablet 20 MG PO (20:19)
[2025-03-06] VITALS (10 sets, daily range): BP systolic 97–124; BP diastolic 3–74; PULSE 59–88; RESP 15–18; TEMP 36.4–36.7; O2SAT 90–92
[2025-03-06] MEDS: piperacillin-tazobactam 3.375 GM in sodium chloride 0.9% (plus) 50 ML IV ×3 (01:32→17:34)
[2025-03-06] MEDS: ALPRAZolam 0.5 mg Tablet 1 MG PO ×2 (01:37→20:09)
[2025-03-06 02:23] LABS: Basophils % 0.2 %; Eosinophils # 0.1 10^3/uL (0.0-0.8); Eosinophils % 1.3 %; Hematocrit 29.2 % (36-47); Lymphocytes # 2.4 10^3/uL (0.8-4.8); Lymphocytes % 28.2 %; Mean Corpuscular HGB Conc 31.5 g/dL (30-55); Mean Corpuscular Volume 95.1 fl (85-98); Mean Platelet Volume 10.2 fL (7.4-10.4); Monocytes # 0.7 10^3/uL (0.2-0.9); Monocytes % 8.8 %; Neutrophils # 4.82 10^3/uL (1.8-7.7); Neutrophils % 57.1 %; Nucleated Red Blood Cells % 0 %; Platelet Count 245 10^3/cmm (157-399); Red Blood Count 3.07 10^6/uL (3.85-5.65); Red Cell Distribution Width 14.8 % (12.1-15.1); White Blood Count 8.44 10^3/uL (3.29-11.43)
[2025-03-06 02:46] LABS: Alanine Aminotransferase 48 U/L (0-33); Alkaline Phosphatase 67 U/L (35-105); Anion Gap 11.4 (5-19); Aspartate Amino Transferase 15 U/L (0-32); Blood Urea Nitrogen 16 mg/dL (8-23); C Reactive Protein 32.5 mg/L (0.0-4.9); Calcium 8.5 mg/dL (8.5-10.5); Carbon Dioxide 24 mmol/L (22-29); Chloride 111 mmol/L (98-107); Creatinine Clr Calc Pharmacy 74.8398; Globulin 2.4 g/dL (1.3-4.6); Glomerular Filtration Rate 82.7 mL/min (90-130); Glucose 104 mg/dL (65-115); Magnesium 1.8 mg/dL (1.7-2.3); Osmolality Calculated 297 mOsm/kg (285-295); Phosphorus 3.2 mg/dL (2.5-4.5); Potassium 3.4 mmol/L (3.5-5.1); Sodium 143 mmol/L (136-145); Total Bilirubin 0.2 mg/dL (0.15-1.2); Total Protein 5.4 g/dL (6.6-8.7)
[2025-03-06 03:01] LABS: NT Pro B Type Natriuretic Pept 6754 pg/mL (0-125); Procalcitonin 1.71 ng/mL (0-0.5)
[2025-03-06] MEDS: aspirin 81 mg EC Tablet PO (06:49)
[2025-03-06] MEDS: topiramate 100 mg Tablet 50 MG PO ×2 (08:58→17:35)
[2025-03-06] MEDS: midodrine 5 mg TABLET 10 MG PO ×2 (08:59→15:27)
[2025-03-06] MEDS: clopidogrel 75 mg Tablet PO (08:59)
[2025-03-06] MEDS: predniSONE 20 mg Tablet 40 MG PO (08:59)
[2025-03-06] MEDS: fluconazole 100 mg Tablet PO (08:59)
[2025-03-06] MEDS: nicotine 21 mg Patch 1 PATCH TRANSDERMA (08:59)
[2025-03-06] MEDS: TRANYLCYPROMINE 10 MG PO ×2 (09:02→17:36)
[2025-03-06] MEDS: ipratropium-albuterol 3 mL Neb INHALATION ×3 (09:09→21:04)
[2025-03-06] MEDS: budesonide 0.5 mg/2 mL Neb INHALATION ×2 (09:10→21:04)
--- NOTE | 2025-03-06 13:34 | P.PN_ITS ---
Subjective 2 Subjective: Patient was seen this morning, she is sitting up in a chair, denies any fevers, no chills, her shortness of breath is improving, cough is improving - I had a detailed discussion with her a bout her ankle CT, age-indeterminate tiny avulsion fractures of the distal fibula - She tells me that back in 2022, she becerra d a fall, and she had a right ankle fracture, she saw orthopedic, medically managed, but she tells me that since then she had throbbing left ankle pain - She tells that whenever she walks she has throbbing left ankle pain, she thought it was osteoarthritis that she has had it for the last 2 years, - On semination today no significant poi nt tenderness, but she tells me that she used to develop swelling in the left ankle since she fell back in 2022 - Discussed conservative management, the re is no acute or displaced fracture currently, but will continue to monitor, - Spoke to orthopedic service, plan on c ontinue to conservatively manage as patient has had injury for some period of time Vitals/I&O/Wt Last Vital Signs Temp 97.5 F L 03/06/25 11:31 Pulse 88 03/06/25 12:10 Resp 15 03/06/25 12:00 BP 104/3 03/06/25 11:31 Pulse Ox 92 03/06/25 12:00 O2 Del Method Room Air 03/06/25 12:00 O2 Flow Rate 2 03/05/25 08:00 FiO2 40 03/01/25 16:10 03/05/25 03/06/25 03/06/25 22:59 06:59 14:59 Intake Total 50 / 340 50 / 390 240 / 240 Balance 50 / 340 50 / 390 240 / 240 Weight last 48 hrs Weight 81.193 kg Weight 85.275 kg Physical Exam 2 Const: COMMON NORMALS: no acute distress and patient oriented x3 Resp: COMMON NORMALS: normal respiratory effort, No retractions, No use of accessory muscles and clear to auscultation bilaterally AUSCULTATION: clear to auscultation bilaterally Cardio: COMMON NORMALS: regular rate, regular rhythm, S1 normal heart sound present and S2 normal heart sound present RATE: regular rate RHYTHM: r egular rhythm HEART SOUNDS: S1 normal heart sound present and S2 normal heart sound present GI: COMMON NORMALS: Normal to inspection, nondistended, normoactive bowel sounds present and non-tender Extremity: COMMON NORMALS: no pedal edema NARRATIVE EXTREMITY EXAM: Left ankle, no significant tenderness on medial lateral malleolus Neuro: COMMON NORMALS: patient oriented x3 Psych: COMMON NORMALS: mental status grossly normal Urinary Catheter Management: Santa: Cath Placed During This Visit: yes, but has since been removed by the nurse Reason for Continuing Indwelling Catheter: Decision to DC Catheter Urinary Catheter Date of Insertion: 03/01/25 Urinary Catheter Time of Insertion: 14:12 Date Urinary Catheter Removed: 03/03/25 Time Urinary Catheter Discontinued: 14:00 Data 03/06/25 01:48 03/06/25 01:48 Micro: Microbiology 03/01/25 09:39 Blood Culture - Final Blood NO GROWTH AFTER 5 DAYS 03/01/25 09:31 Blood Culture - Final Blood NO GROWTH AFTER 5 DAYS 03/01/25 20:30 Sputum Culture - Final Sputum - Expectorated Sputum Dorita albicans Escherichia coli Strep agalactiae - (group b) A&P Assessment and plan (1) Acute hypoxic respiratory failure: (2) Pneumonia: (3) Septic shock: (4) S/P CABG x 4: (5) Congestive heart failure: (6) NSTEMI (non-ST elevated myocardial infarction): Plan Acute hypoxic respiratory failure -Secondary to pneumonia, history of aspiration morning, history of Pseudomonas and Staph aureus follow sputum cultures -COPD -With mild to moderate respiratory distress CT/CT angio chest PE protcl [id number] IMPRESSION: 1. No pulmonary embolism beyond the lobar branches into portions of the segmental branches. 2. Bilateral pneumonia, most significant in the lower lobes and RIGHT middle lobe. 3. Prior CABG. 4. No RIGHT heart strain. - Sputum cultures growing Pseudomonas, E. coli, group B strep, Dorita Plan -Monitor respiratory status closely -Continue BiPAP as needed during the day, scheduled during the night -Zosyn - p.o. Diflucan -Blood cultures so far no growth -Sputum cultures growing Pseudomonas -Monitor respiratory status closely -Will order fungal studies, PJP PCR, Aspergillus, fungal sputum studies Concerns for aspiration pneumonia -Speech therapy eval -Aspiration precautions -Speech therapy, advance diet as tolerated Septic shock, resolved -Secondary to pneumonia -Continue Levophed, off Levophed - maintain MAP greater than 65 -PICC line -Currently on midodrine NSTEMI -Type I versus type II NSTEMI -History of cath in 2020 Diagnostic Findings * Proximal circumflex artery has moderate disease.. * Proximal Left Anterior Descending: Has an area of underexpansion in the proximal stent with 30 to 40% narrowing. LUCIE: 3 flow. * SVG to RCA is occluded. SVG to OM is occluded. * JIANG was not used as a graft.. -Complains of chest pain, no active pain Plan -Serial EKGs, serial troponins, telemetry monitoring -Repeat cardiac echo pending -Aspirin, statin -Monitor for chest pain History of congestive heart failure, diastolic CHF -Status post 1 dose of Lasix -Monitor for fluid overload Cardiac echo CONCLUSIONS Normal left ventricular size, systolic function and wall thickness, with no regional wall motion abnormalities. Left ventricular ejection fraction is estimated at 62 %. Grade II/IV diastolic dysfunction, moderately elevated filling pressures. There is no pericardial effusion. No significant valve abnormalities. Right atrial pressure is around 5 [address] of [address]. Fall CT/CT ankle LT wo con* [id number] IMPRESSION: 1. No acute or displaced fracture. 2. Age-indeterminate tiny avulsion fractures from the very distal fibula. 3. Mild soft tissue edema - Chronic history of left ankle pain for the last 2 years since a fall, with pain with ambulation with swelling - Has age-indeterminate tiny avulsion fracture from the very distal fibula, will continue to conservatively manage Fall - PT OT Full code Lovenox for DVT prophylaxis Protonix for GI prophylaxis Plan for today, continue IV antibiotics for Pseudomonas pneumonia, continue midodrine, monitor respiratory status closely, PDMP PDMP Reviewed: Not Reviewed Attestations 2 Medical Necessity Statement*: Patient requires hospitalization for pneumonia requiring IV antibiotics Diagnoses Acute hypoxic respiratory failure J96.01 Pneumonia J18.9 Septic shock A41.9; R65.21 S/P CABG x 4 Z95.1 Congestive heart failure I50.9 NSTEMI (non-ST elevated myocardial infarction) I21.4
[2025-03-06] MEDS: pantoprazole DR 40 mg Tablet PO (14:36)
[2025-03-06] MEDS: enoxaparin 40 mg/0.4 mL Syringe SUBCUT (14:36)
[2025-03-06] MEDS: acetaminophen 325 mg Tablet 650 MG PO ×2 (14:38→20:09)
[2025-03-06] MEDS: nystatin 100,000 unit/mL UDC 5 mL 100000 UNIT PO ×2 (17:35→20:09)
[2025-03-06 18:45] LABS: Aspergillus AG,EIA,Serum NOT DETECTED; Aspergillus Galactomannan Inde <0.50
[2025-03-06] MEDS: atorvastatin 40 mg Tablet 20 MG PO (20:09)
[2025-03-07] VITALS (11 sets, daily range): BP systolic 90–138; BP diastolic 56–74; PULSE 60–164; RESP 16–20; TEMP 36.5–37.1; O2SAT 90–95
[2025-03-07] MEDS: piperacillin-tazobactam 3.375 GM in sodium chloride 0.9% (plus) 50 ML IV ×3 (01:12→17:18)
[2025-03-07] MEDS: HYDROmorphone 0.5 MG/0.5 ML INJ IVP (03:35)
[2025-03-07 03:52] LABS: Basophils % 0.3 %; Eosinophils # 0.2 10^3/uL (0.0-0.8); Eosinophils % 2.2 %; Hematocrit 29.5 % (36-47); Lymphocytes # 2.4 10^3/uL (0.8-4.8); Mean Corpuscular HGB Conc 31.5 g/dL (30-55); Mean Corpuscular Volume 95.2 fl (85-98); Mean Platelet Volume 10.2 fL (7.4-10.4); Monocytes # 0.7 10^3/uL (0.2-0.9); Monocytes % 9.5 %; Neutrophils # 3.36 10^3/uL (1.8-7.7); Neutrophils % 48.3 %; Nucleated Red Blood Cells % 0 %; Platelet Count 271 10^3/cmm (157-399); Red Cell Distribution Width 14.6 % (12.1-15.1); White Blood Count 6.95 10^3/uL (3.29-11.43)
[2025-03-07 04:16] LABS: Alanine Aminotransferase 42 U/L (0-33); Albumin Level 3.1 g/dL (3.5-5.2); Alkaline Phosphatase 57 U/L (35-105); Anion Gap 13.4 (5-19); Aspartate Amino Transferase 14 U/L (0-32); Blood Urea Nitrogen 15 mg/dL (8-23); C Reactive Protein 17.3 mg/L (0.0-4.9); Calcium 8.4 mg/dL (8.5-10.5); Carbon Dioxide 24 mmol/L (22-29); Chloride 109 mmol/L (98-107); Creatinine Clr Calc Pharmacy 73.1532; Globulin 2.3 g/dL (1.3-4.6); Glomerular Filtration Rate 70.9 mL/min (90-130); Glucose 91 mg/dL (65-115); Magnesium 1.8 mg/dL (1.7-2.3); Osmolality Calculated 296 mOsm/kg (285-295); Phosphorus 4.5 mg/dL (2.5-4.5); Potassium 3.4 mmol/L (3.5-5.1); Sodium 143 mmol/L (136-145); Total Bilirubin 0.3 mg/dL (0.15-1.2); Total Protein 5.4 g/dL (6.6-8.7)
[2025-03-07 04:23] LABS: NT Pro B Type Natriuretic Pept 5494 pg/mL (0-125); Procalcitonin 0.98 ng/mL (0-0.5)
[2025-03-07 04:39] LABS: Slide Review Slide Review Perform
[2025-03-07] MEDS: aspirin 81 mg EC Tablet PO (06:49)
[2025-03-07] MEDS: midodrine 5 mg TABLET 10 MG PO (06:49)
[2025-03-07] MEDS: ipratropium-albuterol 3 mL Neb INHALATION ×3 (09:00→20:55)
[2025-03-07] MEDS: budesonide 0.5 mg/2 mL Neb INHALATION ×2 (09:00→20:55)
[2025-03-07] MEDS: nystatin 100,000 unit/mL UDC 5 mL 100000 UNIT PO ×4 (09:11→20:31)
[2025-03-07] MEDS: potassium chloride ER 20 mEq Tablet 40 MEQ PO (09:11)
[2025-03-07] MEDS: ALPRAZolam 0.5 mg Tablet 1 MG PO ×2 (09:11→17:17)
[2025-03-07] MEDS: topiramate 100 mg Tablet 50 MG PO ×2 (09:12→17:18)
[2025-03-07] MEDS: nicotine 21 mg Patch 1 PATCH TRANSDERMA (09:12)
[2025-03-07] MEDS: fluconazole 100 mg Tablet PO (09:12)
[2025-03-07] MEDS: clopidogrel 75 mg Tablet PO (09:12)
[2025-03-07] MEDS: predniSONE 20 mg Tablet 40 MG PO (09:12)
[2025-03-07] MEDS: TRANYLCYPROMINE 10 MG PO ×2 (09:14→18:03)
[2025-03-07] MEDS: FUROsemide 10 mg/mL SDV 2mL 20 MG IVP (11:16)
[2025-03-07] MEDS: HYDROcodone-acetaminophen 5-325 mg Tablet 1 TAB PO ×2 (12:46→19:17)
[2025-03-07] MEDS: pantoprazole DR 40 mg Tablet PO (13:49)
--- NOTE | 2025-03-07 15:26 | P.PN_ITS ---
Subjective 2 Subjective: Patient was seen this morning, she is sitting up in the chair, denies any fevers, no chills, does have wheezing, Vitals/I&O/Wt Last Vital Signs Temp 97.7 F 03/07/25 13:00 Pulse 67 03/07/25 13:00 Resp 18 03/07/25 13:00 BP 104/65 03/07/25 13:00 Pulse Ox 92 03/07/25 13:00 O2 Del Method Room Air 03/07/25 13:00 O2 Flow Rate 2 03/05/25 08:00 FiO2 40 03/01/25 16:10 03/07/25 03/07/25 03/07/25 06:59 14:59 22:59 Intake Total 50 / 750 410 / 410 Balance 50 / 750 410 / 410 Weight last 48 hrs Weight 82.01 kg Weight 81.193 kg Physical Exam 2 Const: COMMON NORMALS: no acute distress and patient oriented x3 Resp: COMMON NORMALS: normal respiratory effort, No retractions and No use of accessory muscles AUSCULTATION: crackles and wheezes Cardio: COMMON NORMALS: regular rate, regular rhythm, S1 normal heart sound present and S2 normal heart sound present RATE: regular rate RHYTHM: r egular rhythm HEART SOUNDS: S1 normal heart sound present and S2 normal heart sound present GI: COMMON NORMALS: Normal to inspection, nondistended, normoactive bowel sounds present and non-tender Extremity: COMMON NORMALS: no pedal edema Neuro: COMMON NORMALS: patient oriented x3 Psych: COMMON NORMALS: mental status grossly normal Urinary Catheter Management: Santa: Cath Placed During This Visit: yes, but has since been removed by the nurse Reason for Continuing Indwelling Catheter: Decision to DC Catheter Urinary Catheter Date of Insertion: 03/01/25 Urinary Catheter Time of Insertion: 14:12 Date Urinary Catheter Removed: 03/03/25 Time Urinary Catheter Discontinued: 14:00 Data 03/07/25 03:03 03/07/25 03:03 A&P Assessment and plan (1) Acute hypoxic respiratory failure: (2) Pneumonia: (3) Septic shock: (4) S/P CABG x 4: (5) Congestive heart failure: (6) NSTEMI (non-ST elevated myocardial infarction): Plan Acute hypoxic respiratory failure -Secondary to pneumonia, history of aspiration morning, history of Pseudomonas and Staph aureus follow sputum cultures -COPD -With mild to moderate respiratory distress CT/CT angio chest PE protcl [id number] IMPRESSION: 1. No pulmonary embolism beyond the lobar branches into portions of the segmental branches. 2. Bilateral pneumonia, most significant in the lower lobes and RIGHT middle lobe. 3. Prior CABG. 4. No RIGHT heart strain. - Sputum cultures growing Pseudomonas, E. coli, group B strep, Dorita Plan -Monitor respiratory status closely -Continue BiPAP as needed during the day, scheduled during the night -Zosyn - p.o. Diflucan -Blood cultures so far no growth -Sputum cultures growing Pseudomonas -Monitor respiratory status closely -Will order fungal studies, PJP PCR, Aspergillus, fungal sputum studies Concerns for aspiration pneumonia -Speech therapy eval -Aspiration precautions -Speech therapy, advance diet as tolerated Septic shock, resolved -Secondary to pneumonia -Continue Levophed, off Levophed - maintain MAP greater than 65 -PICC line -Currently on midodrine NSTEMI -Type I versus type II NSTEMI -History of cath in 2020 Diagnostic Findings * Proximal circumflex artery has moderate disease.. * Proximal Left Anterior Descending: Has an area of underexpansion in the proximal stent with 30 to 40% narrowing. LUCIE: 3 flow. * SVG to RCA is occluded. SVG to OM is occluded. * JIANG was not used as a graft.. -Complains of chest pain, no active pain Plan -Serial EKGs, serial troponins, telemetry monitoring -Repeat cardiac echo pending -Aspirin, statin -Monitor for chest pain History of congestive heart failure, diastolic CHF -Status post 1 dose of Lasix -Monitor for fluid overload Cardiac echo CONCLUSIONS Normal left ventricular size, systolic function and wall thickness, with no regional wall motion abnormalities. Left ventricular ejection fraction is estimated at 62 %. Grade II/IV diastolic dysfunction, moderately elevated filling pressures. There is no pericardial effusion. No significant valve abnormalities. Right atrial pressure is around 5 mm of mercury. Fall CT/CT ankle LT wo con* [id number] IMPRESSION: 1. No acute or displaced fracture. 2. Age-indeterminate tiny avulsion fractures from the very distal fibula. 3. Mild soft tissue edema - Chronic history of left ankle pain for the last 2 years since a fall, with pain with ambulation with swelling - Has age-indeterminate tiny avulsion fracture from the very distal fibula, will continue to conservatively manage Fall - PT OT Full code Lovenox for DVT prophylaxis Protonix for GI prophylaxis Plan for today, continue IV antibiotics for Pseudomonas pneumonia, continue midodrine, monitor respiratory status closely, 1 dose IV Lasix PDMP PDMP Reviewed: Not Reviewed Attestations 2 Medical Necessity Statement*: Patient requires hospitalization for acute hypoxic respiratory failure, Pseudomonas pneumonia, fluid overload Diagnoses Acute hypoxic respiratory failure J96.01 Pneumonia J18.9 Septic shock A41.9; R65.21 S/P CABG x 4 Z95.1 Congestive heart failure I50.9 NSTEMI (non-ST elevated myocardial infarction) I21.4
[2025-03-07] MEDS: atorvastatin 40 mg Tablet 20 MG PO (20:32)
[2025-03-08] VITALS (7 sets, daily range): BP systolic 102–144; BP diastolic 52–72; PULSE 59–79; RESP 15–20; TEMP 36.6–36.8; O2SAT 91–94; BMI 27.2
[2025-03-08] MEDS: piperacillin-tazobactam 3.375 GM in sodium chloride 0.9% (plus) 50 ML IV (01:04)
[2025-03-08] MEDS: HYDROcodone-acetaminophen 5-325 mg Tablet 1 TAB PO ×2 (01:43→08:55)
[2025-03-08 03:37] LABS: Basophils % 0.1 %; Eosinophils # 0.1 10^3/uL (0.0-0.8); Eosinophils % 1.3 %; Hematocrit 31.3 % (36-47); Lymphocytes # 2.3 10^3/uL (0.8-4.8); Lymphocytes % 28.8 %; Mean Corpuscular HGB Conc 31.3 g/dL (30-55); Mean Corpuscular Hemoglobin 29.9 pg (27-33); Mean Corpuscular Volume 95.4 fl (85-98); Mean Platelet Volume 9.8 fL (7.4-10.4); Monocytes # 0.7 10^3/uL (0.2-0.9); Monocytes % 8.6 %; Neutrophils # 4.56 10^3/uL (1.8-7.7); Neutrophils % 58.3 %; Nucleated Red Blood Cells % 0 %; Platelet Count 307 10^3/cmm (157-399); Red Blood Count 3.28 10^6/uL (3.85-5.65); Red Cell Distribution Width 14.6 % (12.1-15.1); White Blood Count 7.82 10^3/uL (3.29-11.43)
[2025-03-08 03:57] LABS: Alanine Aminotransferase 40 U/L (0-33); Albumin Level 3.2 g/dL (3.5-5.2); Alkaline Phosphatase 59 U/L (35-105); Anion Gap 15.4 (5-19); Aspartate Amino Transferase 15 U/L (0-32); Blood Urea Nitrogen 15 mg/dL (8-23); Calcium 8.4 mg/dL (8.5-10.5); Carbon Dioxide 24 mmol/L (22-29); Chloride 106 mmol/L (98-107); Creatinine Clr Calc Pharmacy 73.4908; Globulin 2.5 g/dL (1.3-4.6); Glomerular Filtration Rate 70.9 mL/min (90-130); Glucose 79 mg/dL (65-115); Magnesium 1.8 mg/dL (1.7-2.3); Osmolality Calculated 294 mOsm/kg (285-295); Phosphorus 3.5 mg/dL (2.5-4.5); Potassium 3.4 mmol/L (3.5-5.1); Sodium 142 mmol/L (136-145); Total Bilirubin 0.2 mg/dL (0.15-1.2); Total Protein 5.7 g/dL (6.6-8.7)
[2025-03-08 04:00] LABS: NT Pro B Type Natriuretic Pept 2351 pg/mL (0-125)
[2025-03-08] MEDS: aspirin 81 mg EC Tablet PO (05:04)
[2025-03-08] MEDS: FUROsemide 20 mg Tablet PO (08:09)
[2025-03-08] MEDS: potassium chloride ER 20 mEq Tablet 40 MEQ PO (08:09)
[2025-03-08] MEDS: topiramate 100 mg Tablet 50 MG PO (08:11)
[2025-03-08] MEDS: ALPRAZolam 0.5 mg Tablet 1 MG PO (08:11)
[2025-03-08] MEDS: clopidogrel 75 mg Tablet PO (08:11)
[2025-03-08] MEDS: nystatin 100,000 unit/mL UDC 5 mL 100000 UNIT PO ×2 (08:12→13:42)
[2025-03-08] MEDS: nicotine 21 mg Patch 1 PATCH TRANSDERMA (08:12)
[2025-03-08] MEDS: TRANYLCYPROMINE 10 MG PO (08:13)
[2025-03-08] MEDS: fluconazole 100 mg Tablet PO (08:13)
[2025-03-08] MEDS: piperacillin-tazobactam 3.375 GM in sodium chloride 0.9% (plus) 50 ML 1.5 GM IV (08:55)
--- NOTE | 2025-03-08 10:29 | PC.SOCIAL ---
IMM Updated Updated pt on IMM. No questions voiced. Provided pt a copy. Initialed, dated, & timed copy in chart.
--- NOTE | 2025-03-08 12:07 | PM.DCS ---
Discharge Providers Date of Admission: 03/01/25 10:57 Date of Discharge: March 08, 2025 Attending Provider at Admission: David Hatch MD Attending Provider at Discharge: David Hatch MD Primary Care Provider: Venancio Mota MD Diagnoses at Discharge Discharge Diagnosis (1) Acute hypoxic respiratory failure: Status: Resolved (2) Pneumonia: Status: Resolved (3) Septic shock: Status: Resolved (4) S/P CABG x 4: Status: Resolved (5) Congestive heart failure: Status: Resolved (6) NSTEMI (non-ST elevated myocardial infarction): Status: Resolved Reason for Visit Reason for Visit: SOB Hospital Course Hospital Course Rebecca Coombs is a 69 year old female with a past medical history of COPD, CAD, CABG, hypertension, hyperlipidemia, history of compression L4, history of hiatal hernia, history of aspiration pneumonia, who presents [facility] for shortness of breath, cough. Currently patient is on BiPAP, she is alert oriented x 3, can follow commands, in respiratory failure, with tachypnea, tachycardia, intercostal or suprasternal retractions, nasal flaring, short of breath with a few words, 40% BiPAP. He does also report anterior chest discomfort, no lightheadedness, no dizziness, she saw her primary care provider she was given Levaquin for concerns for pneumonia. During my discussion, patient's blood pressures 89/69, has evidence of septic shock, D diminished DP PT pulses, cap refill greater than 2 seconds, mild mottling bilateral extremities, discussed with nursing staff will give her a sepsis bolus however she does have a history of CHF, order placed for 2 L, order placed for Levophed, order placed for PICC line. Discussed with patient that she has septic shock secondary to right middle and right lower lobe pneumonia, will order CT angiogram of the chest, monitor in ICU closely. Will give her 2 L bolus sepsis bolus, and she is at risk of CHF exacerbation, BNP elevated, so we not will give her full sepsis bolus due to risk of CHF exacerbation. The patient was seen in the ICU, working on her for sepsis bolus, blood pressures 80s over 60s, she is alert oriented x 3, following all commands, in mild to moderate respiratory failure, she tells that she gets claustrophobic with the BiPAP is seen, discussed BiPAP machine will help with her work of breathing, will start her on Precedex for anxiety. Discussed with nursing staff goals to maintain MAP greater than 65, if she does not respond to fluid, can go ahead and start her on Levophed. Discussed with patient the morbidity mortality associated with her pneumonia, her septic shock, respiratory failure, she voiced understanding, all questions answered, she is a full code. Patient was admitted to [facility] for acute hypoxic respiratory failure, pneumonia, history of Pseudomonas/Staph aureus, COPD, with mild to moderate respiratory distress, requiring ICU admission, requiring BiPAP, broad-spectrum medical therapy, with septic shock, requiring Levophed, with NSTEMI. Patient was monitored, overall her clinical condition improved, she was moved to the medical floors, septic shock resolved, there was concerns for aspiration, she was seen by speech therapy, her hospitalization was complicated with fluid overload and diastolic CHF exacerbation requiring IV fluids. Nonetheless overall her condition improved, she has completed her antibiotic therapy as inpatient, follow-up with primary care provider as outpatient Her sputum cultures grew E. coli, Pseudomonas, she completed IV antibiotics Zosyn for 7 days as inpatient For NSTEMI, will have her follow-up with cardiology as outpatient, no chest pain complaints For her CHF she received inpatient diuresis, echocardiogram showed an EF of 62%, grade 2 out of 4 diastolic dysfunction fall, patient did have a fall during her hospitalization -Had complaints of acute on chronic left ankle pain CT/CT ankle LT wo con* [id number] IMPRESSION: 1. No acute or displaced fracture. 2. Age-indeterminate tiny avulsion fractures from the very distal fibula. 3. Mild soft tissue edema - Chronic history of left ankle pain for the last 2 years since a fall, with pain with ambulation with swelling -On examination, no significant lateral or medial malleolus tenderness to palpation, no tenderness to palpation of fibula, no significant swelling, good range of motion, no pain with range of motion -She is ambulating with minimal symptomatology, she tells me she feels like she is back to her baseline level of pain - But has age-indeterminate tiny avulsion fracture from the very distal fibula, will continue to conservatively manage -Have her follow-up with primary care provider as outpatient, if she continues to have pain can consider orthopedic evaluation - She can use an ankle brace as needed, pain control, continue PT OT Physical Exam Const: COMMON NORMALS: no acute distress and patient oriented x3 Resp: COMMON NORMALS: normal respiratory effort, No retractions, No use of accessory muscles and clear to auscultation bilaterally AUSCULTATION: clear to auscultation bilaterally Cardio: COMMON NORMALS: regular rate, regular rhythm, S1 normal heart sound present and S2 normal heart sound present RATE: regular rate RHYTHM: regular rhythm HEART SOUNDS: S1 normal heart sound present and S2 normal heart sound present GI: COMMON NORMALS: Normal to inspection, nondistended, normoactive bowel sounds present and non-tender Extremity: COMMON NORMALS: no pedal edema Neuro: COMMON NORMALS: patient oriented x3, CN's II-XII intact bilaterally and moves all extremities Psych: COMMON NORMALS: mental status grossly normal Urinary Catheter Management: [place]: Cath Placed During This Visit: yes, but has since been removed by the nurse Reason for Continuing Indwelling Catheter: Decision to DC Catheter Urinary Catheter Date of Insertion: 03/01/25 Urinary Catheter Time of Insertion: 14:12 Date Urinary Catheter Removed: 03/03/25 Time Urinary Catheter Discontinued: 14:00 Discharge Data Studies Completed and Pending Completed Studies During Hospitalization Category Date Time Status CT angio chest PE protcl [id number] Stat Cat Scan 03/01/25 11:[address] ankle LT wo con* [id number] Routine Cat Scan 03/05/25 08:[address] head wo con* [id number] Stat Cat Scan 03/04/25 07:28 Completed CXRP [XR chest 1V portable [id number]] Routine Exams 03/01/25 12:40 Completed XR ankle LT min 3V* [id number] Stat Exams 03/04/25 09:11 Completed XR chest 1V portable [id number] Routine Exams 03/04/25 08:50 Completed XR chest 1V portable [id number] Stat Exams 03/01/25 08:09 Completed XR elbow LT 2V [id number] Routine Exams 03/04/25 11:41 Completed XR hip LT 2-3V wo/w pel* [id number] Routine Exams 03/04/25 11:41 Completed XR knee LT 1-2V [id number] Routine Exams 03/04/25 11:41 Completed XR shoulder LT 1V [id number] Stat Exams 03/04/25 07:28 Completed CV. echo complete* [id number] Routine Ultrasound 03/04/25 08:49 Completed Pending at discharge Category Date Time Status Complete Blood Count w/Auto AM LABS Lab 03/09/25 04:00 Ordered Complete Blood Count w/Auto AM LABS Lab 03/10/25 04:00 Ordered Comprehensive Metabolic Panel AM LABS Lab 03/09/25 04:00 Ordered Comprehensive Metabolic Panel AM LABS Lab 03/10/25 04:00 Ordered Fungal Culture not HR/SK/BL Stat Lab 03/03/25 15:29 Ordered Magnesium AM LABS Lab 03/09/25 04:00 Ordered Magnesium AM LABS Lab 03/10/25 04:00 Ordered NT Pro B Type Natriuretic Pept QAM Lab 03/09/25 06:00 Ordered NT Pro B Type Natriuretic Pept QAM Lab 03/10/25 06:00 Ordered PJP Qual Sputum [Pneumocystis jiroveci Qual PCR] Lab 03/03/25 15:29 Ordered Routine Phosphorus AM LABS Lab 03/09/25 04:00 Ordered Phosphorus AM LABS Lab 03/10/25 04:00 Ordered SARS Covid-2 Antigen Stat Lab 03/08/25 10:33 Uncollected Radiology Impressions Chest CTA 03/01/25 11:54 IMPRESSION: 1. No pulmonary embolism beyond the lobar branches into portions of the segmental branches. 2. Bilateral pneumonia, most significant in the lower lobes and RIGHT middle lobe. 3. Prior CABG. 4. No RIGHT heart strain. Head CT 03/04/25 07:28 IMPRESSION: 1. No acute intracranial hemorrhage or edema. 2. Mild volume loss and small vessel disease, stable. 3. No skull fracture or soft tissue contusion. Shoulder X-Ray 03/04/25 07:28 IMPRESSION: No acute fracture identified however the examination is limited and additional standard imaging is recommended to exclude nondisplaced surgical neck fracture of the humerus as clinically warranted. Chest X-Ray 03/04/25 08:50 IMPRESSION: Resolving chest abnormality as above. Ankle X-Ray 03/04/25 09:11 IMPRESSION: Abnormality of the lateral malleolus as above. Most likely chronic. Elbow X-Ray 03/04/25 11:41 IMPRESSION: No acute abnormality. Hip/Pelvis X-Ray 03/04/25 11:41 IMPRESSION: No acute abnormality. Moderate osteoarthritis of the left hip. Knee X-Ray 03/04/25 11:41 IMPRESSION: No acute abnormality. Mild osteoarthritis. The calcification of the menisci suggests CPPD. Ankle CT 03/05/25 08:40 IMPRESSION: 1. No acute or displaced fracture. 2. Age-indeterminate tiny avulsion fractures from the very distal fibula. 3. Mild soft tissue edema Laboratory Results WBC 7.82 10^3/uL (3.29-11.43) 03/08/25 02:14 RBC 3.28 10^6/uL (3.85-5.65) L 03/08/25 02:14 Hgb 9.80 g/dL (11.27-16.99) L 03/08/25 02:14 Hct 31.3 % (36-47) L 03/08/25 02:14 MCV 95.4 fl (85-98) 03/08/25 02:14 MCH 29.9 pg (27-33) 03/08/25 02:14 MCHC 31.3 g/dL (30-55) 03/08/25 02:14 RDW 14.6 % (12.1-15.1) 03/08/25 02:14 Plt Count 307 10^3/cmm (157-399) 03/08/25 02:14 MPV 9.8 fL (7.4-10.4) 03/08/25 02:14 Neut % (Auto) 58.3 % 03/08/25 02:14 Lymph % (Auto) 28.8 % 03/08/25 02:14 Ponce % (Auto) 8.6 % 03/08/25 02:14 Eos % (Auto) 1.3 % 03/08/25 02:14 Baso % (Auto) 0.1 % 03/08/25 02:14 Neut # (Auto) 4.56 10^3/uL (1.8-7.7) 03/08/25 02:14 Lymph # (Auto) 2.3 10^3/uL (0.8-4.8) 03/08/25 02:14 Ponce # (Auto) 0.7 10^3/uL (0.2-0.9) 03/08/25 02:14 Eos # (Auto) 0.1 10^3/uL (0.0-0.8) 03/08/25 02:14 Baso # (Auto) 0.0 10^3/uL (0.0-0.1) 03/08/25 02:14 Nucleated RBC % (auto) 0 % 03/08/25 02:14 Total Counted 100 (0-100) 03/02/25 04:05 Atypical Lymphs % Not Reportable 03/02/25 04:05 Absolute Neutrophils 17.2 10^3/cmm (1.4-6.5) H 03/02/25 04:05 Segmented Neutrophils 62 % 03/02/25 04:05 Band Neutrophils 19.0 % 03/02/25 04:05 Lymphocytes (Manual) 3 % 03/02/25 04:05 Monocytes (Manual) 7.0 % 03/02/25 04:05 Absolute Monocytes 1.5 10^3/cmm (0.1-0.6) H 03/02/25 04:05 Eosinophils (Manual) 0 % 03/02/25 04:05 Absolute Eosinophils 0.0 10^3/cmm (0.0-0.7) 03/02/25 04:05 Basophils (Manual) 0.0 % 03/02/25 04:05 Absolute Basophils 0.0 10^3/cmm (0.0-0.2) 03/02/25 04:05 Metamyelocytes 2.0 % 03/02/25 04:05 Myelocytes 7.0 % 03/02/25 04:05 Nucleated RBCs # 0.0 /100WBC 03/08/25 02:14 Platelet Estimate Normal (Normal) 03/02/25 04:05 PT 12.50 SECONDS (12.1-14.9) 03/01/25 15:54 INR 0.87 (0.8-1.2) 03/01/25 15:54 Specimen Type Arterial 03/01/25 08:10 Sample Site Radial, right 03/01/25 08:10 ABG pH 7.28 (7.35-7.45) L 03/01/25 08:10 ABG pCO2 42.7 mmHg (35-45) 03/01/25 08:10 ABG pO2 50.7 mmHg (80.0-100.0) L 03/01/25 08:10 ABG PO2/FiO2 Ratio 112 03/01/25 08:10 ABG HCO3 20.1 mmol/L (22-26) L 03/01/25 08:10 ABG O2 Saturation 85.1 03/01/25 08:10 ABG Base Excess -6.4 mmol/L (-2.0-2.0) L 03/01/25 08:10 Elmer Test Pos 03/01/25 08:10 A-a O2 Gradient 28.2 mmHg (5-10) H 03/01/25 08:10 Hematocrit 40.9 % (37-47) 03/01/25 08:10 Hgb O2 Saturation 84.1 % (95-100) L 03/01/25 08:10 Carboxyhemoglobin 1.0 %THgb (0.4-20.1) 03/01/25 08:10 Methemoglobin 0.1 % (0.4-1.5) L 03/01/25 08:10 Total Hemoglobin 13.3 g/dL (12-16) 03/01/25 08:10 Sodium 144.0 mmol/L (131-143) H 03/01/25 08:10 Potassium 3.8 mmol/L (3.5-5.0) 03/01/25 08:10 Glucose 89.0 mg/dL (70-115) 03/01/25 08:10 Ionized Calcium 1.3 mmol/L (1.1-1.4) 03/01/25 08:10 O2 Delivery Device Nc 03/01/25 08:10 O2 Liters/Min 6.0 % 03/01/25 08:10 FiO2 45.0 % 03/01/25 08:10 Marketing Pr Intern ID Mb 03/01/25 08:10 Sodium 142 mmol/L (136-145) 03/08/25 02:14 Potassium 3.4 mmol/L (3.5-5.1) L 03/08/25 02:14 Chloride 106 mmol/L (98-107) 03/08/25 02:14 Carbon Dioxide 24 mmol/L (22-29) 03/08/25 02:14 Anion Gap 15.4 (5-19) 03/08/25 02:14 BUN 15 mg/dL (8-23) 03/08/25 02:14 Creatinine 0.8 mg/dL (0.5-0.9) 03/08/25 02:14 GFR Calculation 70.9 mL/min (90-130) L 03/08/25 02:14 Glucose 79 mg/dL (65-115) 03/08/25 02:14 Estimat Average Glucose 103 03/01/25 09:15 Hemoglobin A1c 5.2 % (4.0-6.0) 03/01/25 09:15 Calculated Osmolality 294 mOsm/kg (285-295) 03/08/25 02:14 Lactic Acid 2.6 mmol/L (0.5-2.2) H 03/01/25 15:54 Lactic Acid (Sepsis) 1.3 mmol/L (0.5-2.2) 03/01/25 18:55 Lactate 1.4 mmol/L (0.5-2.2) 03/04/25 04:48 Calcium 8.4 mg/dL (8.5-10.5) L 03/08/25 02:14 Phosphorus 3.5 mg/dL (2.5-4.5) 03/08/25 02:14 Magnesium 1.8 mg/dL (1.7-2.3) 03/08/25 02:14 Total Bilirubin 0.2 mg/dL (0.15-1.2) 03/08/25 02:14 AST 15 U/L (0-32) 03/08/25 02:14 ALT 40 U/L (0-33) H 03/08/25 02:14 Alkaline Phosphatase 59 U/L (35-105) 03/08/25 02:14 Troponin T Baseline 10 ng/L (0-10) 03/01/25 09:15 Troponin T 120 Minute 13.56 ng/L (0-10) H 03/01/25 11:15 Delta Troponin T 3.56 ABS# (0-10) 03/01/25 11:15 Troponin T Hi Sens 6Hr 12.70 ng/L (0-10) H 03/01/25 15:54 Troponin T Hi Sens 6Hr Delta 2.70 ng/L (0-12) 03/01/25 15:54 C-Reactive Protein 17.3 mg/L (0.0-4.9) H 03/07/25 03:03 NT-Pro-B Natriuret Pep 2351 pg/mL (0-125) H 03/08/25 02:14 Total Protein 5.7 g/dL (6.6-8.7) L 03/08/25 02:14 Albumin 3.2 g/dL (3.5-5.2) L 03/08/25 02:14 Globulin 2.5 g/dL (1.3-4.6) 03/08/25 02:14 Triglycerides 128 mg/dL (0-150) 03/01/25 09:15 Cholesterol 183 mg/dL (0-200) 03/01/25 09:15 LDL Cholesterol, Calc 96 mg/dL (50-129) 03/01/25 09:15 HDL Cholesterol 61 mg/dL (60-100) 03/01/25 09:15 LDL/HDL Ratio 1.57 RATIO (0.00-3.22) 03/01/25 09:15 Cholesterol/HDL Ratio 3.00 mg/dL (0.0-4.40) 03/01/25 09:15 Procalcitonin 0.98 ng/mL (0-0.5) H 03/07/25 03:03 TSH 2.02 uIU/mL (0.27-4.20) 03/01/25 09:15 Random Cortisol 26.36 ug/dL (2.47-19.5) H 03/01/25 09:15 Urine Color Yellow (Yellow) 03/01/25 13:02 Urine Appearance Clear (CLEAR) 03/01/25 13:02 Urine pH 5 (5-7) 03/01/25 13:02 Ur Specific [place] 1.005 (1.005-1.030) 03/01/25 13:02 Urine Protein 1+ (Negative) H 03/01/25 13:02 Urine Glucose (UA) Norm (Normal) 03/01/25 13:02 Urine Ketones Negative (Negative) 03/01/25 13:02 Urine Blood Neg (Negative) 03/01/25 13:02 Urine Nitrate Negative (Negative) 03/01/25 13:02 Urine Bilirubin Neg (Negative) 03/01/25 13:02 Urine Urobilinogen Norm mg/dL (Negative) 03/01/25 13:02 Ur Leukocyte Esterase Trace (Negative) H 03/01/25 13:02 Urine RBC 0-2 /hpf (0-2) 03/01/25 13:02 Urine WBC 0-5 /hpf (0-5) 03/01/25 13:02 Ur Squamous Epith Cells 0-5 /hpf (0-5) 03/01/25 13:02 Amorphous Sediment Not Reportable 03/01/25 13:02 Urine Bacteria None seen /hpf (NONE) 03/01/25 13:02 Hyaline Casts 0.40 /lpf 03/01/25 13:02 Nasal MRSA (PCR) Not detected (Not Detecte) 03/02/25 13:40 Vancomycin Trough 18.9 ug/mL (10-15) H 03/05/25 00:13 Influenza A (PCR) Negative (Negative) 03/01/25 09:15 Influenza Type B (PCR) Negative (Negative) 03/01/25 09:15 A. galactomannan Ag EIA Not detected 03/03/25 04:30 A. galactomannan Ag Idx <0.50 03/03/25 04:30 RSV (PCR) Negative (Negative) 03/01/25 09:15 SARS-CoV-2 (PCR) Negative (Negative) 03/01/25 09:15 Vitals Last Vital Signs Temp 97.9 F 03/08/25 11:37 Pulse 75 03/08/25 11:37 Resp 20 H 03/08/25 11:37 BP 132/64 03/08/25 11:37 Pulse Ox 93 03/08/25 11:37 O2 Del Method Room Air 03/08/25 11:37 O2 Flow Rate 2 03/05/25 08:00 FiO2 40 03/01/25 16:10 Discharge Plan Discharge Patient Disposition: Xfer SNF Condition: Stable Prescriptions: Continued multivitamin [Daily Multi-Vitamin] Tablet 1 tab PO QAM magnesium 250 mg tablet 400 mg PO QAM cholecalciferol (vitamin D3) 50 mcg (2,000 unit) tablet 2,000 unit PO QAM ascorbate calcium (vitamin C) 500 mg tablet 500 mg PO QAM aspirin [Adult Aspirin Regimen] 81 mg tablet,delayed release (DR/EC) 81 mg PO QAM alprazolam [Xanax] 1 mg tablet 1 mg PO TID Qty: 90 5RF nitroglycerin 0.4 mg tablet, sublingual 0.4 mg sublingual Q5M PRN (Reason: chest pain) Qty: 30 3RF Rx Instructions: do not exceed 3 doses per episode tranylcypromine [Parnate] 10 mg tablet 20 mg PO BID Qty: 120 11RF fluticasone propion-salmeterol [Wixela Inhub] 500-50 mcg/dose blister with device 1 inh inhalation BID Qty: 180 3RF lovastatin 20 mg tablet 20 mg PO BEDTIME Qty: 90 3RF fexofenadine 180 mg tablet 180 mg PO Q24H Qty: 30 11RF ipratropium-albuterol 0.5 mg-3 mg(2.5 mg base)/3 mL solution for nebulization 3 ml INHALATION TID PRN (Reason: Shortness Of Breath) Qty: 180 3RF potassium chloride 20 mEq tablet,ER particles/crystals 20 meq PO QAM Qty: 90 3RF melatonin 10 mg Tablet 10 mg PO BEDTIME Colace 100 mg capsule 200 mg PO BEDTIME PRN (Reason: Constipation) omeprazole 20 mg capsule,delayed release(DR/EC) 20 mg PO BID Rx Instructions: TAKE 1 CAPSULE BY MOUTH TWICE DAILY omega 0-ugo-dtc-fish oil [Fish Oil] 300-1,000 mg Capsule 1 cap PO DAILY acetaminophen 650 mg Tablet Extended Release 1,300 mg PO Q8H PRN (Reason: Pain) baclofen 10 mg tablet 10 mg PO TID PRN (Reason: spasms) furosemide 40 mg tablet 20 mg PO QAM montelukast 10 mg tablet 10 mg PO BEDTIME fluticasone propionate 50 mcg/actuation spray,suspension 2 spray intranasal BID clopidogrel 75 mg tablet 75 mg PO DAILY Changed ranolazine 1,000 mg tablet extended release 12 hr 1,000 mg PO DAILY Qty: 180 3RF Held carvedilol 3.125 mg tablet 3.125 mg PO BID Qty: 60 11RF Hold Instructions: Resume on 03/10/25. No Action (DME) [facility] BED PILLOW TOP See Rx Instructions .Route .MEDSUPPLY Qty: 1 0RF Rx Instructions: DIRECTED Discharge Orders: Discharge Order (Routine); Ordered 03/08/25 Ordered By: David Hatch Referrals: [facility] [Outside] Venancio Mota MD [Primary Care Provider] - Discharge Diet: Cardiac Discharge Activity: Resume usual activity Patient Instructions: Opioid Safety Discharge Attestations Time Spent in Discharge Care*: greater than 30 min Status at Discharge: Cognitive status at discharge: cognitively intact, Behavioral status at discharge: cooperative, Quality Metrics Clinical Quality Measures [ No reported AMI, CVA or VTE this stay] Coding Level of Care Code 60370 Total time (in minutes) for Discharge: 45 Diagnoses Acute hypoxic respiratory failure J96.01 Pneumonia J18.9 Septic shock A41.9; R65.21 S/P CABG x 4 Z95.1 Congestive heart failure I50.9 NSTEMI (non-ST elevated myocardial infarction) I21.4
[2025-03-08] MEDS: ipratropium-albuterol 3 mL Neb INHALATION (12:10)
[2025-03-08 12:50] LABS: SARS Covid-2 Antigen Negative (Negative)
--- NOTE | 2025-03-08 12:50 | PC.OT ---
OT TREATMENT ATTEMPTED; PATIENT REPORTS THAT SHE IS BEING D/C TODAY AND DOES NOT WISH TO PARTICIPATE IN SKILLED OT TX TODAY.
[2025-03-08] MEDS: pantoprazole DR 40 mg Tablet PO (13:42)
[2025-03-08] MEDS: enoxaparin 40 mg/0.4 mL Syringe SUBCUT (13:44)
== END 2025-03-08 14:30 | disposition skilled nursing facility (03) | DRG 871 ==
LOC: ER 08:14 → ICU 10:57 → MEDSURG 03-03 14:03
PROVIDERS: Admitting Provider Family Medicine; Emergency Provider Family Medicine; PCP Family Medicine; Visit Provider Family Medicine
DX: A41.9 Sepsis, unspecified organism (principal); I21.4 Non-ST elevation (NSTEMI) myocardial infarction; J18.9 Pneumonia, unspecified organism; R65.21 Severe sepsis with septic shock; J96.01 Acute respiratory failure with hypoxia; I50.33 Acute on chronic diastolic (congestive) heart failure; J44.1 Chronic obstructive pulmonary disease with (acute) exacerbation; J44.0 Chronic obstructive pulmonary disease with (acute) lower respiratory infection; I25.10 Atherosclerotic heart disease of native coronary artery without angina pectoris; Z95.1 Presence of aortocoronary bypass graft; I11.0 Hypertensive heart disease with heart failure; E78.00 Pure hypercholesterolemia, unspecified; Z87.01 Personal history of pneumonia (recurrent); B96.20 Unspecified Escherichia coli [E. coli] as the cause of diseases classified elsewhere; B96.5 Pseudomonas (aeruginosa) (mallei) (pseudomallei) as the cause of diseases classified elsewhere; Z79.82 Long term (current) use of aspirin; Z79.02 Long term (current) use of antithrombotics/antiplatelets; Z96.611 Presence of right artificial shoulder joint; I25.2 Old myocardial infarction; F17.290 Nicotine dependence, other tobacco product, uncomplicated; W01.0XXA Fall on same level from slipping, tripping and stumbling without subsequent striking against object, initial encounter; Y92.230 Patient room in hospital as the place of occurrence of the external cause
CPT/HCPCS: 36415; 36573; 36592; 36600; 51702; 70450; 71045; 71275; 73020; 73070; 73502; 73560; 73610; 73700; 80051; 80053; 80061; 80202; 81001; 82330; 82533; 82805; 83036; 83605; 83735; 83880; 84100; 84145; 84443; 84484; 85007; 85025; 85610; 86140; 87040; 87070; 87077; 87106; 87186; 87205; 87305; 87426; 87637; 92507; 92523; 92526; 92610; 93005; 93306; 94640; 94660; 96365; 96367; 96372; 96374; 96375; 96376; 97110; 97116; 97161; 97165; 97530; 99285; C1751; J1171; J1650; J1940; J1956; J2060; J2270; J2470; J2543; J2919; J3370; J7050; J7120; J7512; J7626; J9999

== ENCOUNTER → 2025-03-17 11:16 | Outpatient (BNVA) | payer MEDICARE, SELFPAY | PROVIDERS: PCP Family Medicine; Visit Provider Anesthesiology Pain Medicine | DX: M19.011 Primary osteoarthritis, right shoulder (principal); M19.012 Primary osteoarthritis, left shoulder; M54.50 Low back pain, unspecified; M54.2 Cervicalgia; M54.9 Dorsalgia, unspecified | CPT/HCPCS: 20610; 99214; J1010; J3490 ==

== ENCOUNTER → 2025-03-19 09:03 | Outpatient (BNVA) | payer MEDICARE, SELFPAY | PROVIDERS: PCP Family Medicine; Visit Provider Family Medicine | DX: I10 Essential (primary) hypertension (principal); I25.10 Atherosclerotic heart disease of native coronary artery without angina pectoris; J18.9 Pneumonia, unspecified organism; R94.6 Abnormal results of thyroid function studies; E05.90 Thyrotoxicosis, unspecified without thyrotoxic crisis or storm; E55.9 Vitamin D deficiency, unspecified; J69.0 Pneumonitis due to inhalation of food and vomit | CPT/HCPCS: 80053; 80061; 82306; 85025; 86140 ==

== ENCOUNTER 2025-03-19 12:32 | Outpatient (RCR) | payer MEDICARE, SELFPAY | END 2025-03-31 23:59 | disposition home or self-care (01) | LOC: SPT 12:32 | PROVIDERS: PCP Family Medicine; Visit Provider Internal Medicine | DX: R26.2 Difficulty in walking, not elsewhere classified (principal); R53.1 Weakness | CPT/HCPCS: 97110; 97161 ==

== ENCOUNTER → 2025-03-24 13:26 | Outpatient (BNVA) | payer MEDICARE, SELFPAY | PROVIDERS: PCP Family Medicine; Visit Provider Internal Medicine | DX: I25.10 Atherosclerotic heart disease of native coronary artery without angina pectoris (principal); I10 Essential (primary) hypertension; E78.00 Pure hypercholesterolemia, unspecified; J44.9 Chronic obstructive pulmonary disease, unspecified; I71.40 Abdominal aortic aneurysm, without rupture, unspecified; I73.9 Peripheral vascular disease, unspecified; Z79.01 Long term (current) use of anticoagulants; Z79.82 Long term (current) use of aspirin; Z95.1 Presence of aortocoronary bypass graft; I25.2 Old myocardial infarction; Z87.891 Personal history of nicotine dependence | CPT/HCPCS: 99214 ==

== ENCOUNTER 2025-03-31 15:38 | Outpatient (CLI) | payer OTHER, SELFPAY ==
--- NOTE | 2025-03-31 15:45 | XR_ITS ---
WS: [id number] Chest 2 views, 03/31/2025 Clinical Data: cough Comparison: Portable chest, 03/04/2025 Findings: The lower lung opacities have almost totally cleared. There is a small residual noted in the posterior lower lungs best seen on the lateral film. The diaphragms are flattened. No nodules, masses or effusions are seen. The heart is normal. The pulmonary vascularity is not increased. No pneumothorax is seen. The aortic arch and descending thoracic aorta show calcification and tortuosity. There are midline sternotomy sutures and mediastinal clips. There is a right shoulder arthroplasty. XR/XR chest 2V* [id number] Impression: 1. Significant clearing of probable pneumonia. 2. Hyperinflation and atherosclerosis.
== END 2025-03-31 15:39 | disposition home or self-care (01) ==
PROVIDERS: PCP Family Medicine; Visit Provider Family Medicine
DX: J18.9 Pneumonia, unspecified organism (principal); R91.8 Other nonspecific abnormal finding of lung field; I70.0 Atherosclerosis of aorta; Z98.890 Other specified postprocedural states; Z96.89 Presence of other specified functional implants
CPT/HCPCS: 71046

== ENCOUNTER 2025-04-01 06:00 | Outpatient (RCR) | payer MEDICARE, SELFPAY | END 2025-05-01 23:59 | disposition home or self-care (01) | LOC: SPT 06:00 | PROVIDERS: PCP Family Medicine; Visit Provider Internal Medicine | DX: M19.011 Primary osteoarthritis, right shoulder (principal); M19.012 Primary osteoarthritis, left shoulder; R26.2 Difficulty in walking, not elsewhere classified | CPT/HCPCS: 97110 ==

== ENCOUNTER → 2025-04-01 15:15 | Outpatient (BNVA) | payer SELFPAY | PROVIDERS: PCP Family Medicine; Visit Provider Family Medicine | DX: J18.9 Pneumonia, unspecified organism (principal) | CPT/HCPCS: 87070; 87077; 87184 ==

== ENCOUNTER → 2025-04-21 14:12 | Outpatient (BNVA) | payer MEDICARE, SELFPAY | PROVIDERS: PCP Family Medicine; Visit Provider Family Medicine | DX: J18.9 Pneumonia, unspecified organism (principal) | CPT/HCPCS: 87070 ==

== ENCOUNTER → 2025-04-29 07:59 | Outpatient (BNVA) | payer MEDICARE, SELFPAY | PROVIDERS: PCP Family Medicine; Visit Provider Family Medicine | DX: J18.9 Pneumonia, unspecified organism (principal) | CPT/HCPCS: 87070; 87205 ==

== ENCOUNTER 2025-05-02 05:00 | Outpatient (RCR) | payer MEDICARE, SELFPAY | END 2025-05-21 12:20 | disposition home or self-care (01) | LOC: SPT 05:00 | PROVIDERS: PCP Family Medicine; Visit Provider Internal Medicine | DX: R26.2 Difficulty in walking, not elsewhere classified (principal); M19.012 Primary osteoarthritis, left shoulder; M19.011 Primary osteoarthritis, right shoulder | CPT/HCPCS: 97110 ==

== ENCOUNTER 2025-05-13 15:57 | Outpatient (CLI) | payer MEDICARE, SELFPAY ==
--- NOTE | 2025-05-13 16:08 | XRR_ITS ---
PROCEDURE INFORMATION: Exam: XR Left Hip Exam date and time: 05/13/2025 4:13 PM Age: 70 years old Clinical indication: Injury or trauma; Fall; Blunt trauma (contusions or hematomas); Left; Hip TECHNIQUE: Imaging protocol: Radiologic exam of the left hip. Views: 2 or 3 views hip with pelvis when performed. COMPARISON: CR XR hip LT 2-3V wo/w pel* [id number] 03/04/2025 12:11 PM FINDINGS: Bones/joints: Moderate articular surface narrowing and spurring. Mild deformity at the left pubic symphysis suggest an old fracture, this appearance was also seen in 2023. Soft tissues: Unremarkable. Gastrointestinal tract: Two clips in the low sigmoid colon. No acute fracture. XR/XR hip LT 2-3V wo/w pel* [id number] IMPRESSION: 1. No acute findings. 2. Moderate degenerative changes.
== END 2025-05-13 15:58 | disposition home or self-care (01) ==
PROVIDERS: PCP Family Medicine; Visit Provider Family Medicine
DX: M16.12 Unilateral primary osteoarthritis, left hip (principal); J18.9 Pneumonia, unspecified organism; W19.XXXA Unspecified fall, initial encounter; R93.89 Abnormal findings on diagnostic imaging of other specified body structures
CPT/HCPCS: 73502; 86765

== ENCOUNTER → 2025-05-24 10:21 | Outpatient (BNVA) | payer MEDICARE, SELFPAY | PROVIDERS: PCP Family Medicine; Visit Provider Family Medicine | DX: R19.7 Diarrhea, unspecified (principal) | CPT/HCPCS: 87070 ==

== ENCOUNTER 2025-05-26 09:26 | Outpatient (CLI) | payer SELFPAY ==
--- NOTE | 2025-05-26 09:34 | XR_ITS ---
WS: [id number] Exam: XR chest 2V* [id number] Date/Time of Exam: 05/26/2025 9:45 AM Reason For Exam: cough Comparison 03/31/2025. Persistent LEFT lower lobe infiltrate slightly more prominent than noted previously. Remaining lung kothari are clear. There is pulmonary hyperinflation. Normal heart size. The mediastinum is not widened. Signs of previous CABG surgery. Reverse RIGHT shoulder prosthesis. Bony structures are intact. XR/XR chest 2V* [id number] IMPRESSION: 1. Persistent left lower lobe pneumonia slightly more prominent than noted on t he last exam 03/31/2025. 2. Pulmonary hyperinflation which may indicate obstructive lung disease.
== END 2025-05-26 09:27 | disposition home or self-care (01) ==
PROVIDERS: PCP Family Medicine; Visit Provider Family Medicine
DX: J18.9 Pneumonia, unspecified organism (principal); R91.8 Other nonspecific abnormal finding of lung field; Z98.890 Other specified postprocedural states; Z96.611 Presence of right artificial shoulder joint; M19.011 Primary osteoarthritis, right shoulder; R05.9 Cough, unspecified; M25.552 Pain in left hip; M54.50 Low back pain, unspecified; M54.2 Cervicalgia; M54.9 Dorsalgia, unspecified; M19.012 Primary osteoarthritis, left shoulder
CPT/HCPCS: 20610; 71046; 99213; J1010; J3490

== ENCOUNTER → 2025-06-23 10:27 | Outpatient (BNVA) | payer OTHER, SELFPAY | PROVIDERS: PCP Family Medicine; Visit Provider Podiatrist Foot & Ankle Surgery | DX: M21.611 Bunion of right foot (principal); M79.671 Pain in right foot; M20.11 Hallux valgus (acquired), right foot; M19.071 Primary osteoarthritis, right ankle and foot; M20.41 Other hammer toe(s) (acquired), right foot | CPT/HCPCS: 73630; 99204 ==

== ENCOUNTER → 2025-06-28 10:06 | Outpatient (BNVA) | payer OTHER, SELFPAY | PROVIDERS: PCP Family Medicine; Visit Provider Anesthesiology Pain Medicine | DX: M19.011 Primary osteoarthritis, right shoulder (principal); M19.012 Primary osteoarthritis, left shoulder; M54.2 Cervicalgia; M54.9 Dorsalgia, unspecified | CPT/HCPCS: 99213 ==

== ENCOUNTER → 2025-07-02 12:20 | Outpatient (BNVA) | payer OTHER, SELFPAY | PROVIDERS: PCP Family Medicine; Visit Provider Family Medicine | DX: J18.9 Pneumonia, unspecified organism (principal) | CPT/HCPCS: 87070; 87077; 87184 ==

== ENCOUNTER 2025-08-10 15:33 | Outpatient (CLI) | payer MEDICARE, SELFPAY ==
--- NOTE | 2025-08-10 15:30 | US_ITS ---
WS: [id number] URINARY BLADDER ULTRASOUND HISTORY: urinary retention COMPARISON: None available. Urinary bladder is well distended. No intraluminal filling defect. No free fluid adjacent to the urinary bladder. Bladder Wall Thickness: 0.2 cm. Bladder Prevoid: 6.9 cm x 5.1 cm x 6.9 cm. Prevoid volume: 125.9 ml. Bladder Postvoid: 5.0 cm x 3.1 cm x 4.0 cm. Postvoid volume: 31.9 ml. US/US bladder [id number] IMPRESSION: Small amount of residual post void in the urinary bladder. Otherwise negative.
--- NOTE | 2025-08-10 15:47 | XRR_ITS ---
PROCEDURE INFORMATION: Exam: XR Chest Exam date and time: 08/10/2025 3:57 PM Age: 70 years old Clinical indication: Cough and shortness of breath TECHNIQUE: Imaging protocol: Radiologic exam of the chest. Views: 2 views. COMPARISON: CR XR chest 2V* [id number] 05/26/2025 9:48 AM FINDINGS: Lungs: Increased interstitial markings in the bilateral lung bases, likely representing chronic background lung disease. On lateral images, there are opacities blunting of the posterior diaphragmatic contour. Pleural spaces: Unremarkable. No pleural effusion. No pneumothorax. Heart/Mediastinum: Unremarkable. No cardiomegaly. Bones/joints: Reverse right shoulder arthroplasty. XR/XR chest 2V* [id number] IMPRESSION: On lateral image, there are opacities which blunts the posterior diaphragmatic contour. Findings may represent scarring, atelectasis or infection. Recommend clinical correlation.
== END 2025-08-10 15:34 | disposition home or self-care (01) ==
PROVIDERS: PCP Family Medicine; Visit Provider Family Medicine
DX: M48.061 Spinal stenosis, lumbar region without neurogenic claudication (principal); J18.9 Pneumonia, unspecified organism; Z96.611 Presence of right artificial shoulder joint
CPT/HCPCS: 71046; 76857; 80048; 85025; 87070

== ENCOUNTER → 2025-08-16 13:39 | Outpatient (BNVA) | payer MEDICARE, SELFPAY | PROVIDERS: PCP Family Medicine; Visit Provider Anesthesiology Pain Medicine | DX: M25.552 Pain in left hip (principal); M54.50 Low back pain, unspecified; M54.2 Cervicalgia; M54.9 Dorsalgia, unspecified; M25.511 Pain in right shoulder; M19.011 Primary osteoarthritis, right shoulder; M19.012 Primary osteoarthritis, left shoulder | CPT/HCPCS: 99213 ==

== ENCOUNTER → 2025-08-23 13:41 | Outpatient (BNVA) | payer OTHER, SELFPAY | PROVIDERS: PCP Family Medicine; Visit Provider Anesthesiology Pain Medicine | DX: M19.019 Primary osteoarthritis, unspecified shoulder (principal); M25.552 Pain in left hip; M54.50 Low back pain, unspecified; M54.2 Cervicalgia; M54.9 Dorsalgia, unspecified; M25.511 Pain in right shoulder; M19.011 Primary osteoarthritis, right shoulder; M19.012 Primary osteoarthritis, left shoulder | CPT/HCPCS: 20610; 99214; J1010; J3490 ==

== ENCOUNTER → 2025-09-06 11:54 | Outpatient (BNVA) | payer OTHER, SELFPAY | PROVIDERS: PCP Family Medicine; Visit Provider Family Medicine | DX: J18.9 Pneumonia, unspecified organism (principal) | CPT/HCPCS: 87070; 87184; 87205 ==

== ENCOUNTER 2025-09-17 06:25 | Outpatient (CLI) | payer OTHER, SELFPAY ==
--- NOTE | 2025-09-17 06:30 | CT_ITS ---
WS: [id number] CT chest w con* [id number] HISTORY: pulmonary infiltrates TECHNIQUE: Axial imaging performed through the thorax. Coronal and sagittal reformats are submitted. All CT scans at [facility] use at least one of these dose optimization techniques: automated exposure control; mA and/or kV adjustment per patient size (includes targeted exams where dose is matched to clinical indication); or iterative reconstruction. CONTRAST: Omnipaque 350; 100 mL IV. DLP: 359.14 mGy.cm COMPARISON: 03/01/2025, chest radiograph 08/10/2025, aorta ultrasound 11/09/2024 Lungs and central airway: Marked pulmonary hyperexpansion. Compared to the most recent radiograph of 08/10/2025 there has been improvement in aeration noted on the localizer image. Advanced changes of centrilobular emphysema. There are multi lobar areas of tree-in-bud airspace disease and small peripheral opacities in the lungs but greatest in the RIGHT lung. There is a subsolid mass in the LEFT lower lobe measuring 2.0 x 3.2 x 2.1 cm. Pleura: Normal. No pleural effusion. Heart and pericardium: Normal size heart with no pericardial effusion. Prior CABG. Coarse calcifications in the [place] coronary artery. Mediastinum and vandana: No mediastinum or hilar adenopathy. Vessels: Moderate atherosclerosis thoracic aorta extending into the great vessels. Normal size pulmonary artery. Chest wall and lower neck: Artifact through the upper thorax secondary to patient's RIGHT shoulder arthroplasty. Suspect there are small bilateral thyroid nodules. Upper abdomen: No adrenal mass. Suprarenal aortic calcifications and splenic artery calcifications. Prior cholecystectomy. Surface of the liver is slightly nodular suggesting cirrhosis. Spleen does not appear enlarged. The very superior aspect of the patient's known abdominal aortic aneurysm is identified. Osseous structures: Advanced thoracic spondylosis. CT/CT chest w con* [id number] IMPRESSION: 1. Severe centrilobular emphysema. 2. As compared to the most recent radiograph of 08/10/2025 there has been an imp rovement in the overall aeration of both lungs with less consolidation. 3. Multilobar tree-in-bud airspace disease and small peripheral opacifications . May be the residual of endobronchial pneumonia being treated. Most significan t in tree-in-bud airspace disease in the RIGHT lower lobe. 4. Subsolid opacification LEFT lower lobe measures 2.0 x 3.2 x 2.1 cm. Recomme nd follow-up chest CT in 3 to 6 months. Low-grade neoplasm needs to be consider ed. 5. No mediastinal or hilar adenopathy. 6. Prior CABG. 7. Atherosclerosis aorta. 8. Prior cholecystectomy.
[2025-09-17] MEDS: iohexol 350 mg/mL 500 mL Btl (per mL) IV (06:33)
== END 2025-09-17 06:26 | disposition home or self-care (01) ==
LOC: RAD 06:26
PROVIDERS: PCP Family Medicine; Visit Provider Internal Medicine
DX: J44.9 Chronic obstructive pulmonary disease, unspecified (principal); R91.8 Other nonspecific abnormal finding of lung field; Z87.01 Personal history of pneumonia (recurrent); Z86.14 Personal history of Methicillin resistant Staphylococcus aureus infection; F17.290 Nicotine dependence, other tobacco product, uncomplicated; J84.10 Pulmonary fibrosis, unspecified; J84.9 Interstitial pulmonary disease, unspecified; R55 Syncope and collapse; J47.9 Bronchiectasis, uncomplicated
CPT/HCPCS: 36415; 71260; 82103; 82164; 82784; 85025; 85610; 85651; 86021; 86036; 86038; 86431; 99215; Q3014

== ENCOUNTER 2025-09-23 10:13 | Outpatient (CLI) | payer OTHER, SELFPAY ==
[2025-09-23 10:41] VITALS: PULSE 73; RESP 18; O2SAT 95
== END 2025-09-23 10:14 | disposition home or self-care (01) ==
LOC: RT 10:20
PROVIDERS: PCP Family Medicine; Visit Provider Internal Medicine
DX: J44.9 Chronic obstructive pulmonary disease, unspecified (principal); J98.8 Other specified respiratory disorders; R94.2 Abnormal results of pulmonary function studies
CPT/HCPCS: 94060; 94726; 94729; J7613

== ENCOUNTER → 2025-10-21 13:40 | Outpatient (BNVA) | payer MEDICARE, SELFPAY | PROVIDERS: PCP Family Medicine; Visit Provider Nurse Practitioner Family | DX: E78.00 Pure hypercholesterolemia, unspecified (principal); I10 Essential (primary) hypertension; I25.10 Atherosclerotic heart disease of native coronary artery without angina pectoris; J44.9 Chronic obstructive pulmonary disease, unspecified; I71.40 Abdominal aortic aneurysm, without rupture, unspecified; I73.9 Peripheral vascular disease, unspecified; Z87.01 Personal history of pneumonia (recurrent); K74.60 Unspecified cirrhosis of liver; I95.1 Orthostatic hypotension; Z95.5 Presence of coronary angioplasty implant and graft; Z95.1 Presence of aortocoronary bypass graft; F17.200 Nicotine dependence, unspecified, uncomplicated; I25.2 Old myocardial infarction; I71.43 Infrarenal abdominal aortic aneurysm, without rupture; R07.9 Chest pain, unspecified | CPT/HCPCS: 93005; 99214 ==

== ENCOUNTER → 2025-10-25 09:27 | Outpatient (BNVA) | payer MEDICARE, SELFPAY | PROVIDERS: PCP Family Medicine; Visit Provider Internal Medicine | DX: J44.9 Chronic obstructive pulmonary disease, unspecified (principal); R91.8 Other nonspecific abnormal finding of lung field; B96.1 Klebsiella pneumoniae [K. pneumoniae] as the cause of diseases classified elsewhere; Z22.322 Carrier or suspected carrier of Methicillin resistant Staphylococcus aureus; I25.10 Atherosclerotic heart disease of native coronary artery without angina pectoris; I10 Essential (primary) hypertension; Z95.5 Presence of coronary angioplasty implant and graft; F17.290 Nicotine dependence, other tobacco product, uncomplicated; Z87.01 Personal history of pneumonia (recurrent); R93.89 Abnormal findings on diagnostic imaging of other specified body structures | CPT/HCPCS: 99214; Q3014 ==

== ENCOUNTER 2025-11-03 08:49 | Outpatient (CLI) | payer MEDICARE, SELFPAY ==
--- NOTE | 2025-11-03 | ECG_ITS ---
[employer] Test Date: 2025-11-03 Pat Name: Rebecca Coombs Department: Room: Gender: Female Puller Through: : 1955 Requested By: Loren Malvin Order Number: [id number] Alicia MD: Olga Garza M.D. Interpretive Statements Lung unchanged pre/post procedure; Intraprocedure shortess of breath; Symptoms resoled by discharge PROCEDURE: At the baseline, the EKG revealed normal sinus rhythm with features of old inferior wall MD. Some nonspecific ST-T changes.. The baseline heart was 60 bpm with a blood pressue of 135/65 mm of Hg Lexiscan was infused over a period of 20 seconds. A total of 0.4 milligrams of Lexiscan was infused. The stress phase was continued for a total of 5 minutes. Heart rate at the end of the stress phase was 77 bpm with a blood pressure 114/58 mm of Hg. The EKG at the peak infusion revealed no significant changes. Sestamibi was injected 20 seconds after the Lexiscan infusion. Heart rate at the end of the recovery phase was 74 bpm with a blood pressure of 118/57mm of Hg. CONCLUSION: 1. No significant EKG changes with the LexiScan infusion 2. No LexiScan induced chest pain or cardiac arrhythmia 3. Normal blood pressure and heart rate response 4. Sestamibi/sestamibi perfusion scan pending; see separate report. Electronically Signed On 11-07-2025 20:47:16 MACHINE TACK PULLER by Olga Garza M.D. [email or web address]
[2025-11-03 09:01] VITALS: BMI 25.4
--- NOTE | 2025-11-03 09:05 | NMCV_ITS ---
NM siomara perf SPECT r/s* [id number] Ayanna Coombsne Age: 70 Gender: F : 1955 Exam Date: 11/03/2025 09:52 Ordering Phys: Loren Coombs NP Technologist: PRIYA Raza Exam Location: [facility] Indications: cp STRESS TEST Please see separate stress test report in [facility] for full findings IMAGE PROTOCOL Rest/Stress 1 Lexiscan Day Radiopharmaceutical Dose (mCi) Administration Site Administered by Rest: Tc-99m 10.8 IV PRIYA Raza Sestamibi Stress:Tc-99m 32.6 IV PRIYA Ordoñez Sestamibi Rest: 03-Nov-2025 60 Discovery 630 Stress: 03-Nov-2025 30 Discovery 630 0.4mg Lexiscan. Supine position only as patient was unable to lay prone. Patient was imaged with right arm down to her side. SPECT RESULTS Technical Quality: Good Raw Data Analysis: Normal Image Corrections: No attenuation or motion correction applied Summed Stress Score: 14 Summed Rest Score: 5 Summed Difference Score: 9 PERFUSION FINDINGS Moderate area of moderate to severely decrease tracer uptake involving the basal and mid anterolateral, mid inferolateral and apical lateral segments with some reversibility. Slightly decreased tracer uptake in the apical anterior, mid inferior and LV apex with some reversibility. FUNCTIONAL RESULTS (calculated via Gated SPECT) Stress Image LV EF (%): 63 Stress EDV (mL):99 TID: 0.9 Stress ESV (mL):37 FUNCTIONAL FINDINGS: Segmental wall motion analysis revealing mild hypokinesis of the anteroapical region. IMPRESSIONS 1. Myocardial perfusion imaging revealing moderate area of moderate to severely decreased tracer uptake involving the anterolateral, inferolateral and apical regions with significant reversibility suggesting myocardial scarring with ischemia in the distribution of the left circumflex artery, predominantly. Very small areas of ischemia in the distribution of the right coronary artery and left anterior descending artery 2. Normal LV ejection fraction of 63% 3. LV wall motion analysis revealing mild hypokinesia of the anteroapical region 4. Normal LV volume Compared to the study from 02/14/2023, the ischemic burden appears to be slightly less Dr Olga Garza MD [facility] (Electronically Signed) Final Date: 03 November 2025 12:43 S
[2025-11-03 10:35] VITALS: BP 114/58; PULSE 77
== END 2025-11-03 08:50 | disposition home or self-care (01) ==
PROVIDERS: PCP Family Medicine; Visit Provider Nurse Practitioner Family
DX: R07.9 Chest pain, unspecified (principal); R94.39 Abnormal result of other cardiovascular function study; I49.8 Other specified cardiac arrhythmias; R94.31 Abnormal electrocardiogram [ECG] [EKG]
CPT/HCPCS: 36415; 78452; 93017; 96374; A9500; J2785

== ENCOUNTER 2025-11-05 10:46 | Outpatient (CLI) | payer MEDICARE, SELFPAY ==
--- NOTE | 2025-11-05 11:00 | USCV_ITS ---
Rebecca Coombs Age: 70 Gender: F : 1955 Exam Date: 11/05/2025 11:04 Ordering Phys: Loren Coombs NP Technologist: JOSE Exam Location: [facility] Indication: AAA HISTORY: Diameter (cm) AP x Transverse x Length Velocity (cm/s) Waveform Prox Aorta: 2.10 x 1.80 x 75.10 Biphasic Mid Aorta: 3.90 x 3.80 x 4.70 91.70 Biphasic Distal Aorta: 2.50 x 1.80 x 3.10 92.80 Biphasic Right Iliac Prox: 0.75 x 0.69 x 117.80 Triphasic Left Iliac Prox: 0.79 x 0.55 x 102.40 Triphasic Stent Prox Landing x x Aneurysmal Sac Max x x Lt Lat Sac Dim Rt Lat Sac Dim Stent Dist Landing x x Right Iliac Stent x x Left Iliac Stent x x Right Renal Art Left Renal Art FINDINGS: comp 2023 CONCLUSIONS AAA mid aorta measuring 3.9 x 3.8 x 4.7cm AP x trans x CC AAA distal aorta measuring 2.5 x 1.8 x 3.1cm AP x trans x CC Normal common iliac arteries Moderate atheromatous disease Findings are relatively stable since 2023 considering differences in technique Michael Serrano MD (Electronically Signed) Final Date: 05 November 2025 16:34 S
== END 2025-11-05 10:47 | disposition home or self-care (01) ==
LOC: RAD 10:47
PROVIDERS: PCP Family Medicine; Visit Provider Nurse Practitioner Family
DX: I71.43 Infrarenal abdominal aortic aneurysm, without rupture (principal)
CPT/HCPCS: 93978

== ENCOUNTER → 2025-11-15 16:08 | Outpatient (BNVA) | payer MEDICARE, SELFPAY | PROVIDERS: PCP Family Medicine; Visit Provider Family Medicine | DX: I10 Essential (primary) hypertension (principal); I25.10 Atherosclerotic heart disease of native coronary artery without angina pectoris; F33.42 Major depressive disorder, recurrent, in full remission | CPT/HCPCS: 80053; 85025 ==

== ENCOUNTER → 2025-11-16 12:55 | Outpatient (BNVA) | payer MEDICARE, SELFPAY | PROVIDERS: PCP Family Medicine; Visit Provider Anesthesiology Pain Medicine | DX: M25.552 Pain in left hip (principal); M54.50 Low back pain, unspecified; M54.2 Cervicalgia; M54.9 Dorsalgia, unspecified; M19.011 Primary osteoarthritis, right shoulder; M19.012 Primary osteoarthritis, left shoulder; Z87.891 Personal history of nicotine dependence | CPT/HCPCS: 20610; 99214; J1010; J3490 ==

== ENCOUNTER 2025-11-22 07:35 | Outpatient (CLI) | payer MEDICARE, SELFPAY ==
[2025-11-22] VITALS (42 sets, daily range): BP systolic 91–146; BP diastolic 52–87; PULSE 64–82; RESP 13–26; TEMP 36.7–36.8; O2SAT 81–97; BMI 25.8
--- NOTE | 2025-11-22 06:43 | XACV_ITS ---
Exam Room: 2 Ht: 173 cm Wt: 77 kg BSA: 1.94 m2 Gender: Female : 1955 Any Known Allergies: Other Exam Priority: Routine Procedure(s): Procedure Description: Diagnostic procedure Procedure Description: PCI procedure Procedure Description: Venous Graft Catheterization Procedure Description: Coronary IVUS Procedure Description: Drug Eluting Coronary Stent Procedure Description: PTCA Procedure Description: Miscellaneous Procedure Description: ACT Procedure Description: Coronary Angiography Diagnostic Cath Status: Elective Diagnostic Findings * INDICATION: 70-year-old woman with past medical history of coronary artery disease who has been having worsening chest pain episodes. Stress test was abnormal. Plan for coronary angiogram with possible PCI. * Proximal Circumflex: severe 80% ostial stenosis, LUCIE: 3 flow.OM has subtotal occlusion. * Left Main has no significant disease. * Proximal Left Anterior Descending: significant 80% stenosis, LUCIE: 3 flow. * Mid Right Coronary Artery: Chronic total occlusion, LUCIE: 0 flow. * BYPASS GRAFTS: SVG to RCA, SVG to diagonal artery and SVG to OM are occluded. PCI Status: Elective Interventional Findings * Proximal Left Anterior Descending : 80% stenosis treated with a AB TREK 2.50X12 RX BALLOON, MDT NC EUPHORA RX [id number] BALLOON, MDT R TREVIN 3.5X18 RADHA, and MDT NC EUPHORA RX 4.34D43BD BALLOON. 0% residual stenosis, LUCIE: 3 flow. * Procedure detail:We engaged the left main artery with XB 3.5 guide catheter. Run-through wire was used to cross severe stenosis of left circumflex artery. We predilated the stenosis with 3.5 x 15 mm NC balloon. We then placed 4.0 x 15 mm resolute [place] drug-eluting stent. Angiogram showed excellent stent expansion. We then predilated LAD stenosis with 2.5 x 12 mm semicompliant balloon. We then predilated it with 3.5 x 15 mm NC balloon. This was followed by placement of 3.5 x 18 mm resolute [place] drug-eluting stent. We postdilated the stent with 4.0 x 15 mm NC balloon. At this time final angiogram showed excellent stent expansion and no residual stenosis. Guidewire and guide catheter were removed. Patient left cath in a stable condition. . * Proximal Circumflex: 80% stenosis treated with a MDT NC EUPHORA RX [id number] BALLOON, and MDT R TREVIN 4.0X15 RADHA. 0% residual stenosis, LUCIE: 3 flow. Conclusions 1. Severe proximal LAD stenosis s/p PCI with 1 stent. Severe proximal left circumflex artery stenosis s/p PCI with 1 stent. 2. Patient has prior CABG. 3. Proximal Left Anterior Descending to Proximal Left Anterior Descending was treated with a Balloon, Balloon, Drug Eluting Stent, and Balloon. 4. Proximal Circumflex was treated with a Balloon, and Drug Eluting Stent. Recommendations * Dual antiplatelet therapy with aspirin and plavix. * Outpatient cardiology follow up in 2 weeks. Interventional RX Recommendation: PCI w/o planned CABG Diagnostic RX Recommendation: PCI w/o planned CABG Anticoagulation: Heparin Pressures Phase:Rest AO : 124 / 55 ( 82 ) @ 10:03:00 AM 102 / 60 ( 81 ) @ 10:10:00 AM 114 / 57 ( 83 ) @ 10:22:00 AM 118 / 60 ( 87 ) @ 10:32:00 AM 116 / 60 ( 86 ) @ 10:46:00 AM Clinical Evaluation EBL: 5mL-10mL Procedural Details Current Diagnosis : Chest Pain. Pre-Procedure Time Out. Identified patient by full name and date of as verbalized by the patient/guarantor. Does the consent match the physician's order: Yes. Accurate & Complete Informed Consent: Yes. Inpatient/Outpatient History & Physical on Chart: Yes. If H&P is completed, is and addenduem needed: Yes; If yes, is the addendum complete: No. Visualize and Verify Site with Patient/Guarantor: N/A. Relevant Radiology Images available: Yes. Pre-op teaching completed and patient verbalized understanding. The risks, benefits, and alternatives of sedation and/or procedure were discussed by physician. The patient agrees to continue. Procedure started. Physician arrived. [facility] Clinical Fraility Score: 3: Managing Well. Youth Care Professional Indications: Worsening Angina. Chest Pain Symptom Assessment: Atypical Angina. Correct patient, site and procedure confirmed by cath team. Current diagnosis: Chest Pain. IV Site on Arrival: 20 gauge in the right anticubital. IV Fluids: 0.9% NaCl at KVO. 0 mL infused prior to stucco laborer. Pre Procedural Pulses: bilateral dorsalis pedis was 1+. Pre Procedural Pulses: bilateral posterior tibial was Doppled. Pre Procedural Pulses: bilateral radial was 3+. Oxygen started at 2liters/min via nasal canula. right groin was prepped with chloroprep then draped in the usual sterile fashion. right radial was prepped with chloroprep then draped in the usual sterile fashion. Baseline sample Acquired. HR: 64 BPM. Physician scrubbed in. Immediate Pre-Procedure Time Out. Correct Patient: Yes; Correct Procedure: Yes; Correct Site: Yes; Correct Patient Position: Yes; Correct Supplies: Yes; Dried Flammable Prep: Yes; Blood Products Available: N/A;. Lidocaine 1% infiltrated to the right groin. Arterial access obtained with micropuncture set. A 5 [place] JR4 catheter in over wire. Wire out. Glidewire inserted. Multiple views taken of right coronary artery. SVG to OM occluded. SVG to Diaganol occluded. SVG to RCA occluded. Catheter removed over the exchange wire. A 5 [place] JL4 catheter in over wire. Multiple views taken of left coronary artery. Catheter removed over the exchange wire. 6 central [place]rican XB 3.5 guide catheter was inserted over the wire. Runthrough guidewire was advanced through the guide catheter to lesion in the prox Circ. IVUS catheter inserted OTW. IVUS measurements obtained. IVUS catheter out OTW. Inflation number : 1 A MDT NC EUPHORA RX 3.18W30OC BALLOON was prepped and advanced across the Prox CX , then inflated to 8 LOU for 0:06 seconds. Inflation number: 2 The MDT NC EUPHORA RX 3.56D84CK BALLOON was reinflated across the Prox CX, to 8 LOU for 0:08 seconds. Inflation number: 3 The MDT NC EUPHORA RX 3.64P99NP BALLOON was reinflated across the Prox CX, to 16 LOU for 0:09 seconds. Inflation Number : 4 A MDT R TREVIN 4.0X15 RADHA -Lot Number# _[id number] EXP: 09/16/2027 was prepped and advanced across the Prox CX. The stent was deployed at 12 LOU for 0:15 seconds. Stent balloon out over wire. IVUS catheter inserted OTW. IVUS measurements obtained. Results checked. IVUS catheter and wire redirected to the LAD. IVUS catheter out. A second Runthrough wire inserted. The first wire removed. Inflation number : 1 A AB TREK 2.50X12 RX BALLOON was prepped and advanced across the Prox LAD , then inflated to 12 LOU for 0:09 seconds. Balloon out. Inflation number: 2 The MDT NC EUPHORA RX 3.88O01HE BALLOON was reinflated across the Prox LAD, to 16 LOU for 0:20 seconds. Balloon out. Inflation Number : 3 A MDT R TREVIN 3.5X18 RADHA -Lot Number# _[id number] EXP: 10/18/2027 was prepped and advanced across the Prox LAD. The stent was deployed at 12 LOU for 0:12 seconds. Stent balloon out over wire. Inflation number : 4 A MDT NC EUPHORA RX 4.33R30LR BALLOON was prepped and advanced across the Prox LAD , then inflated to 20 LOU for 0:14 seconds. Inflation number: 5 The MDT NC EUPHORA RX 4.17D64NT BALLOON was reinflated across the Prox LAD, to 20 LOU for 0:12 seconds. Balloon and wire out. Results checked. Guide catheter out. ACT drawn. Results out of range high seconds. Therapeutic limits - pre-heparin administration 90-150 seconds and monitoring heparin during a vascular procedure >250 seconds. A Right femoral angiogram was performed to determine safe placement of closure device. A Suture was successful obtaining hemostatsis at the Right Femoral artery insertion site. Arterial sheath flushed and connected to tranducer and pressure bag with heparinized saline. Post Procedure: Pulses reassessed and unchanged. PERRLA. Strong, equal hand ticket collector or usher bilaterally. No VTE prophylaxis required. Medication's Wasted: Lidocaine 1% = 10 mL. Medication's Wasted: Nitro = 50 mcg. Medication's Wasted: Other = Fentanyl 50 mcg. Total IV fluids: 75 mL. Post-op diagnosis: Stent to LAD and CX. Complications: None. Estimated blood loss: 5mL-10mL. Responsiveness - Normal response to verbal stimuli; alert and oriented, PERRLA. Airway - Unaffected, no intervention required; spontaneous ventilation. Circulation: W/N/L, pulses unchanged. Nausea/Vomiting: No. Procedure completed. Vital chart was stopped. ACT drawn. Results 232 seconds. Therapeutic limits - pre-heparin administration 90-150 seconds and monitoring heparin during a vascular procedure >250 seconds. Patient transferred by bed to 1st floor. Access Site Site: Right Femoral artery Sheath Size: 6 Fr Hemostasis Method: Suture Hemostasis Success: Successful Procedure Medications Start: 9:49 AM Stop: 9:49 AM Medication: Versed Amount: 1 mg Route: I.V. Start: 9:49 AM Stop: 9:49 AM Medication: Fentanyl Amount: 50 mcg Route: I.V. Start: 10:04 AM Stop: 10:04 AM Medication: Versed 1 mg and Fentanyl 25 mcg Amount: 1 Route: I.V. Start: 10:12 AM Stop: 10:12 AM Medication: Heparin Amount: 7000 units Route: I.V. Start: 10:23 AM Stop: 10:23 AM Medication: Heparin Amount: 1000 units Route: I.V. Start: 10:33 AM Stop: 10:33 AM Medication: Fentanyl Amount: 25 mcg Route: I.V. Start: 10:37 AM Stop: 10:37 AM Medication: Fentanyl Amount: 25 mcg Route: I.V. Start: 10:45 AM Stop: 10:45 AM Medication: Plavix Amount: 600 mg Route: P.O. Start: 11:02 AM Stop: 11:02 AM Medication: Heparin Amount: 2000 units Route: I.V. I, the attending physician, have reviewed and verified all procedure medications. Yes, all medications given per verbal order History/Risk Factors Hypertension: Yes Dyslipidemia: Yes Peripheral Arterial Disease (PAD): No Myocardial Infarction ([place]): Yes Obesity: No Renal Disease: No Tobacco Use: Former Prior Interventions PCI: Yes CABG: Yes Valve Surgery: No Date of PCI: 01/10/2022 Report Signatures Finalized by Jaiden Feliciano MD on 12/11/2025 11:00 AM
[2025-11-22 08:12] LABS: Hematocrit 33.6 % (36-47); Hemoglobin 10.30 g/dL (11.27-16.99); Mean Corpuscular HGB Conc 30.7 g/dL (30-55); Mean Corpuscular Hemoglobin 28.6 pg (27-33); Mean Corpuscular Volume 93.3 fl (85-98); Nucleated Red Blood Cells % 0 %; Platelet Count 362 10^3/cmm (157-399); Red Blood Count 3.60 10^6/uL (3.85-5.65); White Blood Count 7.26 10^3/uL (3.29-11.43)
[2025-11-22 08:34] LABS: Anion Gap 12.1 (5-19); Blood Urea Nitrogen 16 mg/dL (8-23); Calcium 9.0 mg/dL (8.5-10.5); Carbon Dioxide 28 mmol/L (22-29); Chloride 104 mmol/L (98-107); Glucose 89 mg/dL (65-115); Osmolality Calculated 291 mOsm/kg (285-295); Potassium 4.1 mmol/L (3.5-5.1); Sodium 140 mmol/L (136-145)
--- NOTE | 2025-11-22 09:36 | W.PM.OPSFHP ---
Same Day Surgery H&P Indication for Procedure/HPI DATE OF PROCEDURE: November 22, 2025 CHIEF COMPLAINT/INDICATIONFOR SURGICAL PROCEDURE: Chest pain/ abnormal stress test PREOP DIAGNOSIS: Chest pain/ abnormal stress test PLANNED PROCEDURE: Operation Date: 11/22/25 08:30 Proposed Procedures p [facility] w/wo LV & Coros(Left) - Jaiden Feliciano M.D Possible percutaneous coronary intervention 70-year-old woman with past medical history of coronary artery disease who has been having worsening chest pain episodes. Stress test was abnormal. Plan for coronary angiogram with possible PCI Medications/Allergies* Home Medications ?Medication ?Instructions ?Recorded ?Confirmed ?Type multivitamin (Daily Multi-Vitamin 1 tab PO QAM 12/08/19 11/22/25 History tablet) cholecalciferol (vitamin D3) 50 2,000 unit PO QAM 06/01/21 11/22/25 History mcg (2,000 unit) tablet melatonin 10 mg tablet 10 mg PO BEDTIME Sleep 01/09/22 11/22/25 History docusate sodium 100 mg capsule 200 mg PO BEDTIME PRN Constipation 05/08/22 11/22/25 History (Colace) omega 3-uli-gpb-fish oil 300 1 cap PO DAILY 05/01/23 11/22/25 History mg-1,000 mg capsule (Fish Oil) ascorbate calcium (vitamin C) 500 500 mg PO QAM 05/24/23 11/22/25 History mg tablet acetaminophen 650 mg 1,300 mg PO Q8H PRN Pain 04/02/24 11/22/25 History tablet,extended release fluticasone propionate 50 2 spray intranasal BID 11/19/25 11/22/25 History mcg/actuation nasal spray,suspension furosemide 20 mg tablet 20 mg PO DAILY 11/19/25 11/22/25 History lovastatin 20 mg tablet 20 mg PO DAILY 11/19/25 11/22/25 History montelukast 10 mg tablet 10 mg PO DAILY 11/19/25 11/22/25 History nitroglycerin 0.4 mg sublingual 0.4 mg sublingual DIRECTED 11/19/25 11/22/25 History tablet omeprazole 20 mg capsule,delayed 20 mg PO DAILY 11/19/25 11/22/25 History release Allergies/Adverse Reactions Allergy/AdvReac Type Severity Reaction Status Date / Time pregabalin (From Lyrica) Allergy Severe dizziness Verified 11/16/25 13:00 codeine AdvReac Unknown Unknown Verified 11/16/25 13:00 gabapentin (From Neurontin) AdvReac Unknown dizziness Verified 11/16/25 13:00 oxycodone (From OxyContin) AdvReac Unknown Unknown Verified 11/16/25 13:00 Zraheah-YRB-UrS Reductase AdvReac Unknown muscle Verified 11/16/25 13:00 Inhibitor (Sozzukr-Oby-Gqi aches Reductase Inhibitor) tramadol AdvReac Unknown rash Verified 11/16/25 13:00 Current Medications: Generic Name Dose Route Start Last Admin Trade Name Freq PRN Reason Stop Dose Admin Sodium Chloride 1,000 mls @ 50 mls/hr 11/22/25 06:43 11/22/25 08:11 Sodium Chloride 0.9% IV 11/23/25 02:42 Not Given .Q20H ONE Pertinent History/Comorbid Conditions* Medical History (Updated 09/14/25 @ 13:17 by Alan Casillas MD) Pulmonary infiltrates Hearing loss has hearing aides Tinnitus Seasonal allergies Psychiatric care Incomplete prolapse of vaginal 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 Status post reverse total arthroplasty of right shoulder Status post laparoscopic cholecystectomy 01/01/2020 S/P right hemicolectomy 01/01/2020 H/O cardiac catheterization Status post colonoscopy S/p bilateral carpal tunnel release H/O rotator cuff surgery History of right shoulder replacement S/P CABG x 4 Hx of appendectomy Family History (Updated 07/30/22 @ 14:51 by Valerie Pearson RN) Diabetes Daughter Sister x3 Brother Heart disease Mother Hypertension Son Thyroid disease Family/Other granddaughter Denies family history of Colon cancer Ovarian cancer Clotting disorder Hyperlipidemia Breast cancer Anesthesia complication Bleeding disorder Uterine cancer Stroke Social History Smoking and tobacco/nicotine status: former use of tobacco/nicotine Pertinent Exam Findings alert, oriented x 3, clear to auscultation bilaterally and regular rate & rhythm Conscious Sedation Assessment PATIENT ASSESSED PRIOR TO SEDATION, WITH NO CHANGE NOTED: Yes AIRWAY EVAL/ANESTHESIA PLAN: normal airway, ASA III, Local Anesthesia, Risks, benefits & alternatives of sedation and/or procedure discussed and Patient agrees to continue as planned Recommendations Risks and benefits of procedure reviewed and Patient/family agree to proceed Surgery/Procedure today (Left heart cath with possible percutaneous coronary intervention) Coding Level of Care Code Acute Code for [facility]
--- NOTE | 2025-11-22 11:15 | PC.NURSE ---
received from label printer pt is A&Ox4. Denies any chest pain or discomfort. 6 Fr arterial sheath attached to pressure bag and intact on right femoral artery. Absence of hematoma or bleeding to right groin. Pedal pulses are palpable+3. Activity restrictions discuss and educated to pt. Call light provided to pt. Instructed pt to call nurse antonio for any unusual pain, pressure and wetness. pt verbalizes understanding.
--- NOTE | 2025-11-22 13:20 | PC.NURSE ---
Sheath removal Explained procedure to pt. Palpated right femoral artery on right groin. 6 Fr sheath removed. Manual pressure held for 20 mins. Hemostasis achieved. No hematoma, bleeding. pt tolerated the procedure well. Dressing applied to puncture site. Catheter tip intact. Educated pt to call nurse for any bleeding, unusual pain or pressure to site, Informed pt to have another bedrest for atleast 6 hrs post sheath removal. pt verbalizes understanding. call light within reach.
[2025-11-22 14:25] LABS: Partial Thromboplastin Time 106.9 SECONDS (23.9-36.7)
[2025-11-22 17:19] LABS: Partial Thromboplastin Time 26.4 SECONDS (23.9-36.7)
[2025-11-22] MEDS: MELATONIN 3 MG TABLET PO (20:17)
[2025-11-23] VITALS (10 sets, daily range): BP systolic 87–113; BP diastolic 51–79; PULSE 71–80; RESP 15–21; TEMP 36.8; O2SAT 89–95
[2025-11-23 04:24] LABS: Hematocrit 31.9 % (36-47); Hemoglobin 9.50 g/dL (11.27-16.99); Mean Corpuscular HGB Conc 29.8 g/dL (30-55); Mean Corpuscular Hemoglobin 28.7 pg (27-33); Mean Corpuscular Volume 96.4 fl (85-98); Nucleated Red Blood Cells % 0 %; Platelet Count 263 10^3/cmm (157-399); Red Blood Count 3.31 10^6/uL (3.85-5.65); White Blood Count 8.78 10^3/uL (3.29-11.43)
[2025-11-23] MEDS: ATORVASTATIN 10 MG TABLET PO (04:43)
[2025-11-23 05:03] LABS: Blood Urea Nitrogen 14 mg/dL (8-23); Calcium 8.7 mg/dL (8.5-10.5); Carbon Dioxide 25 mmol/L (22-29); Chloride 106 mmol/L (98-107); Glucose 88 mg/dL (65-115); Osmolality Calculated 290 mOsm/kg (285-295); Sodium 140 mmol/L (136-145)
[2025-11-23 05:17] LABS: Slide Review Slide Review Perform
[2025-11-23 05:18] LABS: Anion Gap 13.4 (5-19); Potassium 4.4 mmol/L (3.5-5.1)
--- NOTE | 2025-11-23 10:43 | P.DS_ITS ---
<Statement entered by Jaiden Feliciano M.D - 11/28/25 11:37> Patient was cared for in conjunction with an advanced practice practitioner.? I reviewed the chart and all pertinent data including imaging, telemetry, and laboratory results.? I discussed the patient in detail with the advanced practice practitioner.? Please see? their documentation for discharge summary, testing results and agreed upon plan of care for the patient. Discharge Providers Date of Admission: 11/22/25 Date of Discharge: November 23, 2025 Attending Provider at Admission: Dr. Feliciano Attending Provider at Discharge: Jaiden Feliciano M.D Primary Care Provider: Venancio Mota MD Reason for Visit Reason for Visit: I200 Brief History: The patient is a 70-year-old individual presenting with coronary artery disease management. The patient has a significant history of coronary artery disease, having undergone coronary artery bypass grafting (CABG) in 2005, followed by stent placement due to restenosis. The patient is currently on Plavix and aspirin, which have resulted in bruising and hematomas on the arms and hands. The patient reports an episode of jaw tightening and chest pain on September 03, which was relieved by nitroglycerin, suggesting possibly a cardiac cause. This was an isolated event. Patient states this has happened before. The patient is on alprazolam for anxiety, which is taken as needed. The patient has an abdominal aortic aneurysm that is being monitored for size, with the last measurement showing an increase since 2020. The patient has a history of recurrent pneumonia, with bilateral pneumonia noted on a recent CT scan. The patient experiences orthostatic hypotension, which has led to dizziness and a fall resulting in a broken leg and ankle. The patient is on carvedilol, but holds the afternoon dose to manage low blood pressure. She denies any issues with this at this time. Hospital Course Hospital Course Patient was taken to the section laborer for PCI. See below procedure note for details. C with proximal lad stent and ostial lcx stenting x1 She tolerated well w/o complications. She has hx of hypotension. BP was soft, so holding Coreg. She is asymptomatic. Was instructed to keep a blood pressure and heart rate log and report it to our office after discharge. We will see her in 1 week. Activity instructions were given. Continue aspirin and Plavix as well as statin therapy. Physical Exam Narrative: General: No apparent distress HENMT: normoceophalic Neck: No carotid bruit bilaterally Muskuloskeletal: Full ROM Respiratory: Normal respiratory effort, clear to auscultation bilaterally throughout all lung kothari, no use of accessory muscles Cardio: No JVD, regular rate, regular rhythm, S1 S2 normal, no murmurs, peripheral pulses 2+ throughout Extremities: Full ROM, normal, normal capillary refill, no cyanosis or edema Neuro: Alert and oriented x4 Psych: Affect normal Skin: right radial cath site clean, dry, intact w/o s/s of hematoma Urinary Catheter Management: [place] Free: Cath Placed During This Visit: yes Reason for Continuing Indwelling Catheter: Other Urinary Catheter Date of Insertion: 11/22/25 Urinary Catheter Time of Insertion: 13:36 Discharge Data Studies Completed and Pending Pending at discharge Category Date Time Status [employer] request for service Routine Exams 11/22/25 06:43 Taken Laboratory Results WBC 8.78 10^3/uL (3.29-11.43) 11/23/25 02:50 RBC 3.31 10^6/uL (3.85-5.65) L 11/23/25 02:50 Hgb 9.50 g/dL (11.27-16.99) L 11/23/25 02:50 Hct 31.9 % (36-47) L 11/23/25 02:50 MCV 96.4 fl (85-98) 11/23/25 02:50 MCH 28.7 pg (27-33) 11/23/25 02:50 MCHC 29.8 g/dL (30-55) L 11/23/25 02:50 RDW 14.8 % (12.1-15.1) 11/23/25 02:50 Plt Count 263 10^3/cmm (157-399) 11/23/25 02:50 MPV 9.6 fL (7.4-10.4) 11/23/25 02:50 Neut % (Auto) 66.2 % 11/23/25 02:50 Lymph % (Auto) 20.8 % 11/23/25 02:50 [place] % (Auto) 8.7 % 11/23/25 02:50 Eos % (Auto) 3.2 % 11/23/25 02:50 Baso % (Auto) 0.8 % 11/23/25 02:50 Neut # (Auto) 5.81 10^3/uL (1.8-7.7) 11/23/25 02:50 Lymph # (Auto) 1.8 10^3/uL (0.8-4.8) 11/23/25 02:50 [place] # (Auto) 0.8 10^3/uL (0.2-0.9) 11/23/25 02:50 Eos # (Auto) 0.3 10^3/uL (0.0-0.8) 11/23/25 02:50 Baso # (Auto) 0.1 10^3/uL (0.0-0.1) 11/23/25 02:50 Nucleated RBC % (auto) 0 % 11/23/25 02:50 Nucleated RBCs # 0.0 /100WBC 11/23/25 02:50 APTT 26.4 SECONDS (23.9-36.7) D 11/22/25 16:46 Sodium 140 mmol/L (136-145) 11/23/25 02:50 Potassium 4.4 mmol/L (3.5-5.1) 11/23/25 02:50 Chloride 106 mmol/L (98-107) 11/23/25 02:50 Carbon Dioxide 25 mmol/L (22-29) 11/23/25 02:50 Anion Gap 13.4 (5-19) 11/23/25 02:50 BUN 14 mg/dL (8-23) 11/23/25 02:50 Creatinine 0.8 mg/dL (0.5-0.9) 11/23/25 02:50 GFR Calculation Not Reportable 11/23/25 02:50 Glucose 88 mg/dL (65-115) 11/23/25 02:50 Calculated Osmolality 290 mOsm/kg (285-295) 11/23/25 02:50 Calcium 8.7 mg/dL (8.5-10.5) 11/23/25 02:50 Procedures Performed [facility] with proximal lad stent and ostial lcx stenting x1 Vitals Last Vital Signs Temp 98.2 F 11/23/25 04:28 Pulse 76 11/23/25 07:37 Resp 16 11/23/25 07:37 BP 87/59 11/23/25 06:00 Pulse Ox 93 11/23/25 07:37 O2 Del Method Room Air 11/23/25 07:37 O2 Flow Rate 2 11/22/25 13:30 Discharge Plan Discharge Patient Disposition: Home Prescriptions: Continued multivitamin [Daily Multi-Vitamin] Tablet 1 tab PO QAM cholecalciferol (vitamin D3) 50 mcg (2,000 unit) tablet 2,000 unit PO QAM ascorbate calcium (vitamin C) 500 mg tablet 500 mg PO QAM (DME) mucus clearing device Device See Rx Instructions .MEDSUPPLY Qty: 1 0RF Rx Instructions: As directed Trelegy Ellipta 100-62.5-25 mcg blister with device 1 inh inhalation Q24H Qty: 28 6RF estradiol [Estrace] 0.01 % (0.1 mg/gram) cream 1 g vaginal .twice weekly Qty: 42.5 3RF Rx Instructions: space out doses fexofenadine 180 mg tablet 180 mg PO Q24H Qty: 30 11RF potassium chloride 20 mEq tablet,ER particles/crystals 20 meq PO QAM Qty: 90 3RF (DME) Incentive Spirometer See Rx Instructions .Route .MEDSUPPLY Qty: 1 0RF Rx Instructions: As directed ipratropium-albuterol 0.5 mg-3 mg(2.5 mg base)/3 mL solution for nebulization 3 ml INHALATION TID PRN (Reason: Shortness Of Breath) Qty: 180 3RF tranylcypromine 10 mg tablet 30 mg PO BID Qty: 180 11RF baclofen 10 mg tablet 10 mg PO TID Qty: 90 3RF ranolazine 1,000 mg tablet extended release 12 hr 1,000 mg PO DAILY Qty: 180 3RF alprazolam [Xanax] 1 mg tablet 1 mg PO TID Qty: 90 5RF melatonin 10 mg Tablet 10 mg PO BEDTIME Colace 100 mg capsule 200 mg PO BEDTIME PRN (Reason: Constipation) nitroglycerin 0.4 mg tablet, sublingual 0.4 mg sublingual DIRECTED Rx Instructions: DISSOLVE 1 TABLET UNDER THE TONGUE EVERY 5 MINUTES NEEDED CHEST PAIN; DO NOT EXCEED 3 DOSES PER EPISODE omeprazole 20 mg capsule,delayed release(DR/EC) 20 mg PO DAILY Rx Instructions: TAKE 1 CAPSULE BY MOUTH TWICE DAILY montelukast 10 mg tablet 10 mg PO DAILY Rx Instructions: TAKE 1 TABLET BY MOUTH EVERY DAY furosemide 20 mg tablet 20 mg PO DAILY Rx Instructions: TAKE 1 TABLET BY MOUTH EVERY MORNING lovastatin 20 mg tablet 20 mg PO DAILY Rx Instructions: TAKE 1 TABLET BY MOUTH AT BEDTIME fluticasone propionate 50 mcg/actuation spray,suspension 2 spray intranasal BID Rx Instructions: SHAKE LIQUID AND USE 2 SPRAYS IN EACH NOSTRIL TWICE DAILY aspirin [Adult Aspirin Regimen] 81 mg tablet,delayed release (DR/EC) 81 mg PO QAM Qty: 90 0RF omega 4-dee-yia-fish oil [Fish Oil] 300-1,000 mg Capsule 1 cap PO DAILY acetaminophen 650 mg Tablet Extended Release 1,300 mg PO Q8H PRN (Reason: Pain) Changed clopidogrel 75 mg tablet 75 mg PO DAILY Qty: 90 0RF Rx Instructions: TAKE 1 TABLET BY MOUTH EVERY MORNING Discontinued carvedilol 3.125 mg tablet 3.125 mg PO QDAY Qty: 30 11RF Discharge Order = DC NOW: Discharge Order (Routine); Ordered 11/23/25 Ordered By: Loren Coombs Referrals: Loren Coombs NP [Nurse Practitioner, Cardiology] - 12/09/25 2:30 pm Venancio Mota MD [Primary Care Provider, Family Practice] - 12/06/25 2:40 pm Patient Instructions: Coronary Angioplasty (DC), How to Stop Smoking (DC), Post Angiogram Home Care Instructions Activity Restrictions/Additional Instructions: Discussed with patient no heavy lifting more than a gallon of milk for 3 days[address] No driving for 3 days. Monitor for and report signs or symptoms of bleeding. Monitor for and report s/s of infection such as fever 101 or greater, swelling, redness or pain to the wrist. Print Language: Frisian Discharge Attestations Time Spent in Discharge Care*: less than 30 min Status at Discharge: Cognitive status at discharge: cognitively intact , Behavioral status at discharge: cooperative , Quality Metrics Clinical Quality Measures [ No reported AMI, CVA or VTE this stay] Coding Level of Care Code Acute Code for Chg Fwd
== END 2025-11-23 11:44 | disposition home or self-care (01) ==
LOC: CCL 07:42 → CSU 11:19
PROVIDERS: Nurse Practitioner Family; PCP Family Medicine; Visit Provider Internal Medicine
PROC: 02703ZZ Dilation of Coronary Artery, One Artery, Percutaneous Approach (ICD-10-PCS; CPT 92920; 2025-11-22 08:30)
DX: I25.118 Atherosclerotic heart disease of native coronary artery with other forms of angina pectoris (principal); Z95.1 Presence of aortocoronary bypass graft; I10 Essential (primary) hypertension; E78.5 Hyperlipidemia, unspecified; I25.2 Old myocardial infarction; Z87.891 Personal history of nicotine dependence; K21.9 Gastro-esophageal reflux disease without esophagitis; R00.2 Palpitations; J44.9 Chronic obstructive pulmonary disease, unspecified; Z79.82 Long term (current) use of aspirin; Z79.02 Long term (current) use of antithrombotics/antiplatelets
CPT/HCPCS: 36415; 51702; 80048; 85025; 85347; 85730; 92978; 93455; 99152; 99153; C1725; C1753; C1769; C1874; C1887; C1894; C9600; J1644; J2250; J3010; J3490; J7030; J9999; Q0163; Q9967